=== PATIENT | female | born 1960 | race American Indian/Alaskan Native ===

== ENCOUNTER 2018-08-01 10:30 | Inpatient (IN) | payer MEDICARE ==
[2018-08-01 11:47] LABS: Basophils # (Auto) 0.1 K/mm3 (0.0-0.1); Eosinophils # (Auto) 0.1 K/mm3 (0.0-0.4); Eosinophils % (Auto) 0.5 % (0.0-4.3); Hematocrit 27.4 % (30.3-42.9); Hemoglobin 8.9 gm/dl (10.1-14.3); Lymphocytes # (Auto) 1.4 K/mm3 (1.2-5.4); Lymphocytes % (Auto) 10.1 % (13.4-35.0); Mean Corpuscular HGB Conc 32 % (30-34); Mean Corpuscular Volume 98 fl (79-97); Monocytes # (Auto) 0.6 K/mm3 (0.0-0.8); Monocytes % (Auto) 4.1 % (0.0-7.3); Platelet Count 324 K/mm3 (140-440); Red Blood Count 2.81 M/mm3 (3.65-5.03)
--- NOTE | 2018-08-01 11:49 | Emergency Department Report ---
HPI - General Chief Complaint: Dyspnea/Respdistress Time Seen by Provider: 08/01/18 11:15 - HPI HPI: Room 2 The patient is a 58-year-old female presenting with a chief complaint hypoxia. The patient has a history of previous CVA and trach and does not speak. The patient was sent from the [facility] after she was noted "using accessory muscles to breathe and having labored breathing. Resident is alert and when asked if she is okay, she shook her head and a 'yes.'" The patient was reported to be hypoxic in the 60s and after suctioning her SPO2 increased to the 70s per EMS. The patient was brought to the ED with 100% nonrebreather placed over the trach and is satting 100%. Per EMS the patient is scheduled to have dialysis today but the [facility] physicians the patient to the ED. When asked if anything is bothering her or if she has any pain the patient shakes her head "no." When asked if she is feeling short of breath she again shakes her head "no." Location: Lungs Duration: [See above] Quality: Hypoxia Severity: SPO2 in the 60s Modifying factors: [see above] Context: [see above] Mode of transportation: [not driving] ED Past Medical Hx - Past Medical History Previous Medical History?: Yes Hx Hypertension: Yes Hx CVA: Yes Hx Congestive Heart Failure: Yes (Pacemaker) Hx Diabetes: Yes Hx Deep Vein Thrombosis: Yes Hx GERD: Yes Hx Renal Disease: Yes (MWF) Additional medical history: Atrial fibrillation, osteomyelitis, left eye blurriness, anemia, hyperlipidemia - Surgical History Past Surgical History?: Yes Hx Open Heart Surgery: Yes (scar noted) Additional Surgical History: left great toe amputation, cataract, Tracheostomy - Family History Family history: no significant - Social History Smoking Status: Unknown if ever smoked Substance Use Type: None - Medications Home Medications: Home Medications Medication Instructions Recorded Confirmed Last Taken Type ALBUTEROL NEB's [Proventil 0.083% 3 ml IH Q4HR 07/26/18 07/26/18 Unknown History NEBS] Metoprolol [Lopressor TAB] 25 mg PO BID tablet 07/29/18 Unknown Rx amLODIPine [Norvasc] 5 mg PO QDAY tablet 07/29/18 Unknown Rx Amiodarone HCl [Pacerone] 200 mg PO DAILY 08/01/18 08/01/18 Unknown History Aspirin [Adult Aspirin] 81 mg PO DAILY 08/01/18 08/01/18 Unknown History Carvedilol [Coreg] 12.5 mg PO BID 08/01/18 08/01/18 Unknown History Famotidine 20 mg PO DAILY 08/01/18 08/01/18 Unknown History Gabapentin [Gralise] 30 mg PO QHS 08/01/18 08/01/18 Unknown History Lispro Insulin [Humalog] 0 unit SQ TID 08/01/18 08/01/18 Unknown History Loperamide [Imodium] 2 mg PO Q6H 08/01/18 08/01/18 Unknown History Sevelamer Carbonate [Renvela] 800 mg PO TIDWM 08/01/18 08/01/18 Unknown History Zinc Sulfate 220 mg PO DAILY 08/01/18 08/01/18 Unknown History ED Review of Systems ROS: Stated complaint: IMANI Other details as noted in HPI Constitutional: no symptoms reported Eyes: denies: eye pain ENT: denies: throat pain Respiratory: other (hypoxia) Cardiovascular: denies: chest pain Endocrine: no symptoms reported Gastrointestinal: denies: abdominal pain Musculoskeletal: denies: back pain Neurological: denies: headache Physical Exam - Physical Exam Vital Signs: Vital Signs 08/01/18 10:53 Temperature 98.5 F Pulse Rate 71 Respiratory 24 Rate Blood Pressure 94/47 O2 Sat by Pulse 100 Oximetry Physical Exam: GENERAL: The patient is well-developed well-nourished female lying on stretcher with trach collar in place not appearing to be in acute distress. [] HEENT: Normocephalic. Atraumatic. Extraocular motions are intact. Patient has moist mucous membranes. NECK: Supple. Trachea in place CHEST/LUNGS: Clear to auscultation. There is no respiratory distress noted. HEART/CARDIOVASCULAR: Regular. There is no tachycardia. There is no gallop rub or murmur. ABDOMEN: Abdomen is soft, nontender. Patient has normal bowel sounds. There is no abdominal distention. SKIN: There is no rash. There is no edema. There is no diaphoresis. NEURO: The patient is awake and alert. The patient is cooperative. MUSCULOSKELETAL: There is no evidence of acute injury. ED Course Vital Signs 08/01/18 10:53 Temperature 98.5 F Pulse Rate 71 Respiratory 24 Rate Blood Pressure 94/47 O2 Sat by Pulse 100 Oximetry ED Medical Decision Making - Lab Data Result diagrams: 08/01/18 11:30 08/01/18 11:30 Laboratory Tests 08/01/18 08/01/18 08/01/18 11:30 11:30 11:30 WBC 13.7 H RBC 2.81 L Hgb 8.9 L Hct 27.4 L MCV 98 H MCH 32 MCHC 32 RDW 16.0 H Plt Count 324 Lymph % (Auto) 10.1 L [place] % (Auto) 4.1 Eos % (Auto) 0.5 Baso % (Auto) 1.0 Lymph # 1.4 [place] # 0.6 Eos # 0.1 Baso # 0.1 Seg Neutrophils % 84.3 H Seg Neutrophils # 11.6 H PT 14.4 INR 1.05 APTT 23.5 L Sodium 133 L Potassium 4.8 D Chloride 89.8 L Carbon Dioxide 26 Anion Gap 22 BUN 78 H Creatinine 8.7 H D Estimated GFR 6 BUN/Creatinine Ratio 9 Glucose 177 H Calcium 9.3 - EKG Data -: EKG Interpreted by Me EKG shows normal: sinus rhythm Rate: normal - EKG Data When compared to previous EKG there are: previous EKG unavailable Interpretation: other (no ischemic changes seen) - Radiology Data Radiology results: report reviewed (chest x-ray), image reviewed (chest x-ray) interpreted by me: Chest x-ray-no focal infiltrates, no pneumothorax [address] [address] XRay Report Signed Patient: NAIDA CURRAN MR#: [id number] : 1960 Acct:[id number] Age/Sex: 58 / F ADM Date: 08/01/18 Loc: ED Attending Dr: Ordering Physician: SHIN WESLEY MD Date of Service: 08/01/18 Procedure(s): XR chest 1V ap Accession Number(s): [id number] cc: SHIN WESLEY MD Fluoro Time In Minutes: AP CHEST: HISTORY: Hypoxia Lines and support devices are unchanged since 07/29/18. Heart size and pulmonary vascularity are stable and within normal limits. Elevated right hemidiaphragm with compressive atelectasis at the right lung base are stable. Otherwise the lungs are clear. IMPRESSION: No acute process. No change since 07/29/18. Transcribed By: TTR Dictated By: FRANCISCA MALDONADO JR, MD Electronically Authenticated By: FRANCISCA MALDONADO JR, MD Signed Date/Time: 08/01/18 1156 DD/ 1155 TD/TT: 08/01/18 1156 - Differential Diagnosis pneumonia, pneumothorax Critical care attestation.: If time is entered above; I have spent that time in minutes in the direct care of this critically ill patient, excluding procedure time. ED Disposition Clinical Impression: Hypoxia Disposition: DC-09 OP ADMIT IP TO THIS HOSP Is pt being admited?: Yes Does the pt Need Aspirin: No Condition: Fair Referrals: JERARDO WILD MD [Primary Care Provider] - 3-5 Days Time of Disposition: 15:27 (Hosptialist paged (Dr Reece))
[2018-08-01 11:56] LABS: INR 1.05 (0.87-1.13); Partial Thromboplastin Time 23.5 Sec. (24.2-36.6)
--- NOTE | 2018-08-01 11:59 | XRay Report ---
AP CHEST: HISTORY: Hypoxia Lines and support devices are unchanged since 07/29/18. Heart size and pulmonary vascularity are stable and within normal limits. Elevated right hemidiaphragm with compressive atelectasis at the right lung base are stable. Otherwise the lungs are clear. IMPRESSION: No acute process. No change since 07/29/18.
[2018-08-01 12:02] LABS: Calcium 9.3 mg/dL (8.4-10.2)
--- NOTE | 2018-08-01 15:14 | Nuclear Medicine Report ---
PERFUSION LUNG SCAN: History: Hypoxia. After injection of Technetium 99m macroaggregated albumin gamma camera imaging of the lungs in multiple projections demonstrates normal pulmonary contours with a homogeneous distribution of activity. No focal areas of perfusion deficiency are identified. IMPRESSION: Normal study.
[2018-08-01] MEDS ORDERED: ZOFRAN IV PRN (19:44)
[2018-08-01] MEDS ORDERED: SODIUM CHLORIDE FLUSH SYRINGE 10 ML IV PRN (19:44)
--- NOTE | 2018-08-01 19:44 | History and Physical Report ---
History of Present Illness Date of examination: 08/01/18 Date of admission: 08/01/18 Chief complaint: Increasing SOB and Congestion near Trach site 1 day History of present illness: 58-year-old female presenting with a chief complaint of hypoxia. The patient has history of previous CVA,ESRD Encephalopathy and trach and does not speak. Was recently discharged from this facility on Jul 29 after a stay of 11 days.Had multiple problems including Sepsis Encephalopathy and Resp failure including ESRD. Patient sent from [facility] for Low O2 sats.Improved to 100 percent after proper suctioning.Daughter feels that her mother is not being suctioned properly.No fever or chills. Past Medical History Hypertension: Yes CVA: Yes Congestive Heart Failure: Yes (Pacemaker) Diabetes: Yes Deep Vein Thrombosis: Yes GERD: Yes Renal Disease: Yes (MWF) Additional medical history: Atrial fibrillation, osteomyelitis, left eye blurriness, anemia, hyperlipidemia Surgical History Past Surgical History?: Yes Hx Open Heart Surgery: Yes (scar noted) Additional Surgical History: left great toe amputation, cataract, Tracheostomy Family History Family history: no significant Social History Smoking Status: Unknown if ever smoked Substance Use Type: None Medications Home Medications: Home Medications Medication Instructions Recorded Confirmed Last Taken Type ALBUTEROL NEB's [Proventil 0.083% 3 ml IH Q4HR 07/26/18 07/26/18 Unknown History NEBS] Metoprolol [Lopressor TAB] 25 mg PO BID tablet 07/29/18 Unknown Rx amLODIPine [Norvasc] 5 mg PO QDAY tablet 07/29/18 Unknown Rx Amiodarone HCl [Pacerone] 200 mg PO DAILY 08/01/18 08/01/18 Unknown History Aspirin [Adult Aspirin] 81 mg PO DAILY 08/01/18 08/01/18 Unknown History Carvedilol [Coreg] 12.5 mg PO BID 08/01/18 08/01/18 Unknown History Famotidine 20 mg PO DAILY 08/01/18 08/01/18 Unknown History Gabapentin [Gralise] 30 mg PO QHS 08/01/18 08/01/18 Unknown History Lispro Insulin [Humalog] 0 unit SQ TID 08/01/18 08/01/18 Unknown History Loperamide [Imodium] 2 mg PO Q6H 08/01/18 08/01/18 Unknown History Sevelamer Carbonate [Renvela] 800 mg PO TIDWM 08/01/18 08/01/18 Unknown History Zinc Sulfate 220 mg PO DAILY 08/01/18 08/01/18 Unknown History Review of Systems ROS: Stated complaint: IMANI Other details as noted in HPI Constitutional: no symptoms reported Eyes: denies: eye pain ENT: denies: throat pain Respiratory: other (hypoxia) Cardiovascular: denies: chest pain Endocrine: no symptoms reported Gastrointestinal: denies: abdominal pain Musculoskeletal: denies: back pain Neurological: denies: headache Medications and Allergies Allergies Allergy/AdvReac Type Severity Reaction Status Date / Time ondansetron Allergy Anaphylaxis Verified 08/01/18 11:00 sulfamethoxazole Allergy Anaphylaxis Verified 08/01/18 11:00 [From Bactrim] trimethoprim [From Bactrim] Allergy Anaphylaxis Verified 08/01/18 11:00 vancomycin Allergy Anaphylaxis Verified 08/01/18 11:00 Home Medications Medication Instructions Recorded Confirmed Last Taken Type ALBUTEROL NEB's [Proventil 0.083% 3 ml IH Q4HR 07/26/18 08/01/18 Unknown History NEBS] Metoprolol [Lopressor TAB] 25 mg PO BID tablet 07/29/18 08/01/18 Unknown Rx amLODIPine [Norvasc] 5 mg PO QDAY tablet 07/29/18 08/01/18 Unknown Rx Amiodarone HCl [Pacerone] 200 mg PO DAILY 08/01/18 08/01/18 Unknown History Aspirin [Adult Aspirin] 81 mg PO DAILY 08/01/18 08/01/18 Unknown History Carvedilol [Coreg] 12.5 mg PO BID 08/01/18 08/01/18 Unknown History Famotidine 20 mg PO DAILY 08/01/18 08/01/18 Unknown History Gabapentin [Gralise] 30 mg PO QHS 08/01/18 08/01/18 Unknown History Lispro Insulin [Humalog] 0 unit SQ TID 08/01/18 08/01/18 Unknown History Loperamide [Imodium] 2 mg PO Q6H 08/01/18 08/01/18 Unknown History Sevelamer Carbonate [Renvela] 800 mg PO TIDWM 08/01/18 08/01/18 Unknown History Zinc Sulfate 220 mg PO DAILY 08/01/18 08/01/18 Unknown History Exam - Constitutional Vitals: Temp Pulse Resp BP Pulse Ox 98.5 F 80 17 95/59 100 08/01/18 10:53 08/01/18 19:01 08/01/18 19:01 08/01/18 19:01 08/01/18 19:01 General appearance: Present: mild distress, well-nourished - EENT Eyes: Present: PERRL ENT: hearing intact, clear oral mucosa - Neck Neck: Present: supple, normal ROM - Respiratory Respiratory effort: normal Respiratory: bilateral: diminished, rhonchi, wheezing - Cardiovascular Heart rate: 78 Rhythm: regular Heart Sounds: Present: S1 & S2. Absent: rub, click - Extremities Extremities: no ischemia, pulses symmetrical, No edema Peripheral Pulses: within normal limits - Abdominal General gastrointestinal: Present: soft, non-tender, non-distended, normal bowel sounds Female genitourinary: Present: normal - Rectal Rectal Exam: deferred - Integumentary Integumentary: Present: clear, warm, dry - Musculoskeletal Musculoskeletal: generalized weakness - Psychiatric Psychiatric: depressed, other (Says yes or no) - Neurologic Neurologic: CNII-XII intact, moves all extremities - Allied Health Allied health notes reviewed: nursing, case management Results - Labs CBC & Chem 7: 08/01/18 11:30 08/01/18 11:30 Labs: Laboratory Last Values WBC 13.7 K/mm3 (4.5-11.0) H 08/01/18 11:30 RBC 2.81 M/mm3 (3.65-5.03) L 08/01/18 11:30 Hgb 8.9 gm/dl (10.1-14.3) L 08/01/18 11:30 Hct 27.4 % (30.3-42.9) L 08/01/18 11:30 MCV 98 fl (79-97) H 08/01/18 11:30 MCH 32 pg (28-32) 08/01/18 11:30 MCHC 32 % (30-34) 08/01/18 11:30 RDW 16.0 % (13.2-15.2) H 08/01/18 11:30 Plt Count 324 K/mm3 (140-440) 08/01/18 11:30 Lymph % (Auto) 10.1 % (13.4-35.0) L 08/01/18 11:30 [place] % (Auto) 4.1 % (0.0-7.3) 08/01/18 11:30 Eos % (Auto) 0.5 % (0.0-4.3) 08/01/18 11:30 Baso % (Auto) 1.0 % (0.0-1.8) 08/01/18 11:30 Lymph # 1.4 K/mm3 (1.2-5.4) 08/01/18 11:30 [place] # 0.6 K/mm3 (0.0-0.8) 08/01/18 11:30 Eos # 0.1 K/mm3 (0.0-0.4) 08/01/18 11:30 Baso # 0.1 K/mm3 (0.0-0.1) 08/01/18 11:30 Seg Neutrophils % 84.3 % (40.0-70.0) H 08/01/18 11:30 Seg Neutrophils # 11.6 K/mm3 (1.8-7.7) H 08/01/18 11:30 PT 14.4 Sec. (12.2-14.9) 08/01/18 11:30 INR 1.05 (0.87-1.13) 08/01/18 11:30 APTT 23.5 Sec. (24.2-36.6) L 08/01/18 11:30 POC ABG pH 7.366 (7.35-7.45) 08/01/18 18:38 POC ABG pCO2 48.2 (35-45) H 08/01/18 18:38 POC ABG pO2 146 (80-105) H 08/01/18 18:38 POC ABG HCO3 27.6 08/01/18 18:38 POC ABG Total CO2 29 08/01/18 18:38 POC ABG O2 Sat 99 08/01/18 18:38 POC ABG Base Excess 2 08/01/18 18:38 FiO2 35 % 08/01/18 18:38 Sodium 133 mmol/L (137-145) L 08/01/18 11:30 Potassium 4.8 mmol/L (3.6-5.0) D 08/01/18 11:30 Chloride 89.8 mmol/L (98-107) L 08/01/18 11:30 Carbon Dioxide 26 mmol/L (22-30) 08/01/18 11:30 Anion Gap 22 mmol/L 08/01/18 11:30 BUN 78 mg/dL (7-17) H 08/01/18 11:30 Creatinine 8.7 mg/dL (0.7-1.2) H D 08/01/18 11:30 Estimated GFR 6 ml/min 08/01/18 11:30 BUN/Creatinine Ratio 9 % 08/01/18 11:30 Glucose 177 mg/dL (65-100) H 08/01/18 11:30 Calcium 9.3 mg/dL (8.4-10.2) 08/01/18 11:30 - Imaging and Cardiology EKG: report reviewed (Sinus Tach) Imaging and Cardiology: CXR NAF Perfusion scan IMPRESSION: Normal study. Assessment and Plan Advance Directives: Yes (Full code) VTE prophylaxis?: Chemical Plan of care discussed with patient/family: Yes - Patient Problems (1) Acute respiratory failure with hypoxia Current Visit: Yes Status: Acute Plan to address problem: Sec to improper or delayed suctioning at [facility] Daughter wants a different SNF Patient has been optimized to a large extent and discharged on Jul 29.Has multiple medical problems including ESRD AFIB Trach and Peg (2) ESRD needing dialysis Current Visit: Yes Status: Chronic Plan to address problem: COnt HD Nephrology consulted (3) IDDM (insulin dependent diabetes mellitus) Current Visit: Yes Status: Chronic Plan to address problem: Cont Coverage (4) HTN (hypertension) Current Visit: Yes Status: Chronic Qualifiers: Hypertension type: essential hypertension Qualified Code(s): I10 - Essential (primary) hypertension Plan to address problem: Cont antihypertensives (5) GERD (gastroesophageal reflux disease) Current Visit: Yes Status: Chronic Qualifiers: Esophagitis presence: with esophagitis Qualified Code(s): K21.0 - Gastro- esophageal reflux disease with esophagitis Plan to address problem: Cont PPI's (6) Peripheral neuropathy Current Visit: Yes Status: Chronic Qualifiers: Peripheral neuropathy type: polyneuropathy, unspecified Qualified Code(s): G62.9 - Polyneuropathy, unspecified Plan to address problem: Cont Gabapentin (7) DVT prophylaxis Current Visit: Yes Status: Acute Plan to address problem: On Lovenox and GI prophylaxis
[2018-08-01] MEDS ORDERED: SIMPLE SYRUP FEEDTUBE PRN ×2 (19:47)
[2018-08-01] MEDS ORDERED: LEVAQUIN 750MG/150ML 750 MG/150 ML BAG IV SCH (20:00)
[2018-08-01] MEDS ORDERED: NACL 0.9% 1000 ML 1,000 ML IV SCH (20:00)
[2018-08-01 21:20] LABS: Prealbumin 0.277 g/L (0.200-0.400)
[2018-08-01] MEDS ORDERED: LEVAQUIN 750MG/150ML 750 MG/150 ML BAG IV ONE ×2 (22:00→22:59)
[2018-08-01] MEDS ORDERED: GABAPENTIN PO SCH (22:00)
[2018-08-01] MEDS ORDERED: BABY ASPIRIN ONE (22:59)
[2018-08-01] MEDS ORDERED: LOPRESSOR ONE (22:59)
[2018-08-01] MEDS ORDERED: NORVASC ONE (22:59)
[2018-08-01] MEDS ORDERED: PEPCID ONE (22:59)
[2018-08-01] MEDS ORDERED: IMODIUM ONE (23:00)
[2018-08-01] MEDS ORDERED: COREG ONE (23:00)
[2018-08-01] MEDS ORDERED: SOLU-Medrol ONE (23:00)
[2018-08-01] MEDS: SOLU-Medrol IV SCH (23:20)
[2018-08-01] MEDS: HALFPRIN EC PO SCH (23:30)
[2018-08-01] MEDS: COREG PO SCH (23:30)
[2018-08-01] MEDS: IMODIUM PO SCH (23:30)
[2018-08-01] MEDS: PEPCID PO SCH (23:30)
[2018-08-01] MEDS: LOPRESSOR PO SCH (23:30)
[2018-08-02] MEDS: NORVASC PO SCH ×2 (00:15→10:00)
[2018-08-02] MEDS: CORDARONE PO SCH ×2 (01:16→10:00)
[2018-08-02] MEDS ORDERED: SOLU-Medrol ONE (06:08)
[2018-08-02] MEDS ORDERED: IMODIUM ONE (06:08)
[2018-08-02] MEDS: SOLU-Medrol IV SCH ×3 (06:23→21:55)
[2018-08-02] MEDS: IMODIUM PO SCH ×3 (06:23→18:54)
[2018-08-02] MEDS ORDERED: DILAUDID ONE (07:19)
[2018-08-02] MEDS: DILAUDID IV PRN (07:26)
[2018-08-02] MEDS: RENVELA PO SCH ×3 (08:00→18:54)
--- NOTE | 2018-08-02 08:28 | Consultation ---
History of Present Illness Consult date: 08/02/18 Requesting physician: TULIO ANDREW Reason for consult: other (Acute on chronic respiratory failure, trachesotomy) History of present illness: The patient is a 58-year-old female , known to me from previous admission. Has a background history of chronic tracheosomy, mitral valve endocarditis s/p repair, sick sinus syndrome s/p PPM, s/p CVA presenting with a chief complaint hypoxia. . [facility] after she was noted "using accessory muscles to breathe and having labored breathing". The patient was reported to be hypoxic in the 60s and after suctioning her SPO2 increased to the 70s per EMS. The patient was brought to the ED with 100% non-rebreather mask placed over the tracheostomy Per EMS the patient is scheduled to have dialysis today but the [facility] physicians the patient to the ED. When asked if anything is bothering her or if she has any pain the patient shakes her head "no." When asked if she is feeling short of breath she again shakes her head "no.". Her daughter is at the bedside at the time of my evaluation in the ED. She expresses concerns at the paucity of airway clearance at the [facility]. I have been consulted for acute on chronic respiratory failure. The patient is currently on MVS via the trachesotomy. She was seen and examined. Vitals, labs, medications and chart reviewed. CXR personally reviewed images. - Past Medical History Previous Medical History?: Yes Hx Hypertension: Yes Hx CVA: Yes Hx Congestive Heart Failure: Yes (Pacemaker) Hx Diabetes: Yes Hx Deep Vein Thrombosis: Yes Hx GERD: Yes Hx Renal Disease: Yes (MWF) Additional medical history: Atrial fibrillation, osteomyelitis, left eye b lurriness, anemia, hyperlipidemia - Surgical History Past Surgical History?: Yes Hx Open Heart Surgery: Yes (scar noted), s/p MVR fro mitral valve endocarditis Additional Surgical History: left great toe amputation, cataract, Tracheostomy - Family History Family history: no significant - Social History Smoking Status: Unknown if ever smoked Substance Use Type: None Medications and Allergies Allergies Allergy/AdvReac Type Severity Reaction Status Date / Time ondansetron Allergy Anaphylaxis Verified 08/01/18 11:00 sulfamethoxazole Allergy Anaphylaxis Verified 08/01/18 11:00 [From Bactrim] trimethoprim [From Bactrim] Allergy Anaphylaxis Verified 08/01/18 11:00 vancomycin Allergy Anaphylaxis Verified 08/01/18 11:00 Home Medications Medication Instructions Recorded Confirmed Last Taken Type ALBUTEROL NEB's [Proventil 0.083% 3 ml IH Q4HR 07/26/18 08/01/18 Unknown History NEBS] Metoprolol [Lopressor TAB] 25 mg PO BID tablet 07/29/18 08/01/18 Unknown Rx amLODIPine [Norvasc] 5 mg PO QDAY tablet 07/29/18 08/01/18 Unknown Rx Amiodarone HCl [Pacerone] 200 mg PO DAILY 08/01/18 08/01/18 Unknown History Aspirin [Adult Aspirin] 81 mg PO DAILY 08/01/18 08/01/18 Unknown History Carvedilol [Coreg] 12.5 mg PO BID 08/01/18 08/01/18 Unknown History Famotidine 20 mg PO DAILY 08/01/18 08/01/18 Unknown History Gabapentin [Gralise] 30 mg PO QHS 08/01/18 08/01/18 Unknown History Lispro Insulin [Humalog] 0 unit SQ TID 08/01/18 08/01/18 Unknown History Loperamide [Imodium] 2 mg PO Q6H 08/01/18 08/01/18 Unknown History Sevelamer Carbonate [Renvela] 800 mg PO TIDWM 08/01/18 08/01/18 Unknown History Zinc Sulfate 220 mg PO DAILY 08/01/18 08/01/18 Unknown History Active Meds: Active Medications Acetaminophen (Tylenol) 650 mg PO Q4H PRN PRN Reason: Pain MILD(1-3)/Fever >100.5/CASAREZ Albuterol/Ipratropium (Duoneb *Not For Prn Use*) 1 ampul IH QIDRT [facility] Amiodarone HCl (Cordarone) 200 mg PO DAILY [facility] Last Admin: 08/02/18 01:16 Dose: Not Given Documented by: Amlodipine Besylate (Norvasc) 5 mg PO QDAY [facility] Last Admin: 08/02/18 00:15 Dose: 5 mg Documented by: Lipase/Protease/Amylase (Dominique Jerome 10,500 Unit) 1 each FEEDTUBE PRN PRN PRN Reason: For Clogged Feeding Tube Aspirin (Halfprin Ec) 81 mg PO DAILY [facility] Last Admin: 08/01/18 23:30 Dose: 81 mg Documented by: Carvedilol (Coreg) 12.5 mg PO BID [facility] Last Admin: 08/01/18 23:30 Dose: Not Given Documented by: Famotidine (Pepcid) 20 mg PO DAILY [facility] Last Admin: 08/01/18 23:30 Dose: 20 mg Documented by: Hydromorphone HCl (Dilaudid) 0.5 mg IV Q3H PRN PRN Reason: Pain , Severe (7-10) Last Admin: 08/02/18 07:26 Dose: 0.5 mg Documented by: Sodium Chloride (Nacl 0.9% 1000 Ml) 1,000 mls @ 75 mls/hr IV DIRECT [facility] Stop: 08/02/18 11:00 Levofloxacin/Dextrose (Levaquin 500mg/100ml) 500 mg in 100 mls @ 66.667 mls/hr IV Q48H [facility]; Protocol Insulin Human Lispro (Humalog) 0 unit SUB-Q Q6HR [facility]; Protocol Loperamide HCl (Imodium) 2 mg PO Q6HR [facility] Last Admin: 08/02/18 06:23 Dose: 2 mg Documented by: Methylprednisolone Sodium Succinate (Solu-Medrol) 40 mg IV Q8HR [facility] Last Admin: 08/02/18 06:23 Dose: 40 mg Documented by: Metoprolol Tartrate (Lopressor) 25 mg PO BID [facility] Last Admin: 08/01/18 23:30 Dose: Not Given Documented by: Miscellaneous Medication (Gabapentin [Gralise]) 30 mg PO QHS [facility] Last Admin: 08/02/18 01:16 Dose: Not Given Documented by: Sevelamer Carbonate (Renvela) 800 mg PO TIDWM [facility] Simple Syrup (Simple Syrup) 15 ml FEEDTUBE PRN PRN PRN Reason: Hypoglycemia Simple Syrup (Simple Syrup) 30 ml FEEDTUBE PRN PRN PRN Reason: Hypoglycemia Sodium Bicarbonate (Sodium Bicarbonate) 325 mg FEEDTUBE PRN PRN PRN Reason: For Clogged Feeding Tube Sodium Chloride (Sodium Chloride Flush Syringe 10 Ml) 10 ml IV BID [facility] Last Admin: 08/02/18 00:00 Dose: 10 ml Documented by: Sodium Chloride (Sodium Chloride Flush Syringe 10 Ml) 10 ml IV PRN PRN PRN Reason: LINE FLUSH Zinc Sulfate (Zinc Sulfate) 220 mg PO DAILY [facility] Physical Examination Vital signs: Vital Signs Pulse Resp BP Pulse Ox 71 25 H 94/47 100 08/01/18 10:45 08/01/18 10:45 08/01/18 10:45 08/01/18 10:45 GENERAL: A phasic -[place] female lying on bed appeared to be in no discomfort. HEENT: Normocephalic. Atraumatic. No conjunctival congestion or icterus. Patient has moist mucous membranes. NECK: Supple. Trachea midline with trach in place to MVS, on minimal support, in no distress CHEST/LUNGS: Coarse breath sounds auscultated bilaterally, breathing with T piece. No wheezes crackles or rhonchi. HEART/CARDIOVASCULAR: Regular in rate and rhythm. S1 and S2 positive. ABDOMEN: Abdomen is soft, nontender. Patient has normal bowel sounds. PEG tube in place SKIN: There is no rash. Warm and dry. NEURO: Does not Follow command. Aphasic with a blank stare MUSCULOSKELETAL: No joint effusion or tenderness. EXTRIMITY: No edema, no cyanosis or clubbing. PSYCH: Unable to assess Results - Laboratory Findings CBC and BMP: 08/06/18 10:25 08/06/18 10:25 ABG POC ABG pH 7.366 (7.35-7.45) 08/01/18 18:38 POC ABG pCO2 48.2 (35-45) H 08/01/18 18:38 POC ABG pO2 146 (80-105) H 08/01/18 18:38 POC ABG HCO3 27.6 08/01/18 18:38 POC ABG Total CO2 29 08/01/18 18:38 POC ABG O2 Sat 99 08/01/18 18:38 PT/INR, D-dimer PT 14.4 Sec. (12.2-14.9) 08/01/18 11:30 INR 1.05 (0.87-1.13) 08/01/18 11:30 Abnormal lab findings: Abnormal Labs 08/01/18 08/01/18 08/01/18 11:30 11:30 11:30 WBC 13.7 H RBC 2.81 L Hgb 8.9 L Hct 27.4 L MCV 98 H RDW 16.0 H Lymph % (Auto) 10.1 L Seg Neutrophils % 84.3 H Seg Neutrophils # 11.6 H APTT 23.5 L POC ABG pCO2 POC ABG pO2 Sodium 133 L Chloride 89.8 L BUN 78 H Creatinine 8.7 H D Glucose 177 H Magnesium 08/01/18 08/01/18 18:38 19:56 WBC RBC Hgb Hct MCV RDW Lymph % (Auto) Seg Neutrophils % Seg Neutrophils # APTT POC ABG pCO2 48.2 H POC ABG pO2 146 H Sodium Chloride BUN Creatinine Glucose Magnesium 2.80 H Assessment and Plan Acute on Chronic hypoxemic respiratory failure Acute on Chronic Encephalopathy (Toxic / Metabolic / Anoxic) Diabetes type II End-stage renal disease, on dialysis Wednesday, Wednesday and Wednesday Cardiomyopathy (S/P AICD implantation) Anemia of chronic disease Leukocytosis Adult failure to thrive s/p trachesotomy Oropharyngeal dysphagia (s/p PEG) S/p PPM for sinus arrest s/p Mitral valve repair h/o Mitral Valve SBE Atrial Fibrillation (Paroxysmal) Sacral decubitus ulcer, present on admission -Weaning trials initiated in the ED on discussions with RT. Start ATP trials, -VAP bundle addressed - PT/OT /Mobility as tolerated -VTE and Stress ulcer prophylaxis - Enteric feedings as tolerated -Aspiration precautions -Trachesotomy care, airway clearance, secretion management -Wound care consult - Accucheck with glycemic control. Target blood glucose of 140-180mg/dL - Monitor closely for hypoglycemia - Bronchodilators with pulmonary hygiene per RT - Wean supplemental oxygen for O2 sats > 90% - supportive HD/UF for toxin and volume clearance - CXR and ABG as indicated Discussed extensively with the daughter at the bedside. All her questions were answered. CONDITION: CRITICAL PROGNOSIS: GUARDED CODE STATUS: FULL The high probability of a clinically significant, sudden or life threatening deterioration of the [ respiratory] system(s) required my full and direct attention, intervention and personal management. The aggregate critical care time was [30] minutes. This time is in addition to time spent performing reported procedures but includes the following: [x] Data Review and interpretation [x] Patient assessment and monitoring of vital signs [x] Documentation
--- NOTE | 2018-08-02 09:24 | Consultation ---
History of Present Illness - Reason for Consult Consult date: 08/02/18 end stage renal disease - History of Present Illness The patient is a 58 YO female with history significant for DM-2, Hypertension, MV Endocarditis, s/p MV repair with debridement of MV lesion, CVA 2/2 septic emboli, A.fib, ESRD on hemodialysis (MWF), CVA, Respiratory failure s/p Trach & PEG and Anemia who was sent to the emergency room from the alf for worsening SOB and congestion near Trach site. Unable to obtain history from patient and her daughter at the bedside was not able to provide any history either. Information was mostly obtained from previous documentation. Patient was discharged from this facility on Jul 29 after 11 days of stay. The patient was reported to be hypoxic in the 60s and after suctioning her SPO2 increased to the 70s per EMS. The patient was brought to the ED with 100% no nrebreather placed over the trach and was satting 100%. CXR was unremarkable. Per daughter patient was last dialyzed on 07/29/18 and missed HD yesterday. Nephrology was consulted for further evaluation and treatment. Past History Past Medical History: anemia, diabetes, dialysis, ESRD, hypertension, stroke Medications and Allergies Allergies Allergy/AdvReac Type Severity Reaction Status Date / Time ondansetron Allergy Anaphylaxis Verified 08/01/18 11:00 sulfamethoxazole Allergy Anaphylaxis Verified 08/01/18 11:00 [From Bactrim] trimethoprim [From Bactrim] Allergy Anaphylaxis Verified 08/01/18 11:00 vancomycin Allergy Anaphylaxis Verified 08/01/18 11:00 Home Medications Medication Instructions Recorded Confirmed Last Taken Type ALBUTEROL NEB's [Proventil 0.083% 3 ml IH Q4HR 07/26/18 08/01/18 Unknown History NEBS] Metoprolol [Lopressor TAB] 25 mg PO BID tablet 07/29/18 08/01/18 Unknown Rx amLODIPine [Norvasc] 5 mg PO QDAY tablet 07/29/18 08/01/18 Unknown Rx Amiodarone HCl [Pacerone] 200 mg PO DAILY 08/01/18 08/01/18 Unknown History Aspirin [Adult Aspirin] 81 mg PO DAILY 08/01/18 08/01/18 Unknown History Carvedilol [Coreg] 12.5 mg PO BID 08/01/18 08/01/18 Unknown History Famotidine 20 mg PO DAILY 08/01/18 08/01/18 Unknown History Gabapentin [Gralise] 30 mg PO QHS 08/01/18 08/01/18 Unknown History Lispro Insulin [Humalog] 0 unit SQ TID 08/01/18 08/01/18 Unknown History Loperamide [Imodium] 2 mg PO Q6H 08/01/18 08/01/18 Unknown History Sevelamer Carbonate [Renvela] 800 mg PO TIDWM 08/01/18 08/01/18 Unknown History Zinc Sulfate 220 mg PO DAILY 08/01/18 08/01/18 Unknown History Active Meds: Active Medications Acetaminophen (Tylenol) 650 mg PO Q4H PRN PRN Reason: Pain MILD(1-3)/Fever >100.5/CASAREZ Albuterol/Ipratropium (Duoneb *Not For Prn Use*) 1 ampul IH QIDRT [facility] Amiodarone HCl (Cordarone) 200 mg PO DAILY [facility] Last Admin: 08/02/18 01:16 Dose: Not Given Documented by: Amlodipine Besylate (Norvasc) 5 mg PO QDAY [facility] Last Admin: 08/02/18 00:15 Dose: 5 mg Documented by: Lipase/Protease/Amylase (Pancretevin Dr 10,500 Unit) 1 each FEEDTUBE PRN PRN PRN Reason: For Clogged Feeding Tube Aspirin (Halfprin Ec) 81 mg PO DAILY [facility] Last Admin: 08/01/18 23:30 Dose: 81 mg Documented by: Carvedilol (Coreg) 12.5 mg PO BID [facility] Last Admin: 08/01/18 23:30 Dose: Not Given Documented by: Famotidine (Pepcid) 20 mg PO DAILY [facility] Last Admin: 08/01/18 23:30 Dose: 20 mg Documented by: Hydromorphone HCl (Dilaudid) 0.5 mg IV Q3H PRN PRN Reason: Pain , Severe (7-10) Last Admin: 08/02/18 07:26 Dose: 0.5 mg Documented by: Sodium Chloride (Nacl 0.9% 1000 Ml) 1,000 mls @ 75 mls/hr IV DIRECT [facility] Stop: 08/02/18 11:00 Levofloxacin/Dextrose (Levaquin 500mg/100ml) 500 mg in 100 mls @ 66.667 mls/hr IV Q48H [facility]; Protocol Insulin Human Lispro (Humalog) 0 unit SUB-Q Q6HR [facility]; Protocol Loperamide HCl (Imodium) 2 mg PO Q6HR [facility] Last Admin: 08/02/18 06:23 Dose: 2 mg Documented by: Methylprednisolone Sodium Succinate (Solu-Medrol) 40 mg IV Q8HR [facility] Last Admin: 08/02/18 06:23 Dose: 40 mg Documented by: Metoprolol Tartrate (Lopressor) 25 mg PO BID [facility] Last Admin: 08/01/18 23:30 Dose: Not Given Documented by: Miscellaneous Medication (Gabapentin [Gralise]) 30 mg PO QHS [facility] Last Admin: 08/02/18 01:16 Dose: Not Given Documented by: Sevelamer Carbonate (Renvela) 800 mg PO TIDWM [facility] Simple Syrup (Simple Syrup) 15 ml FEEDTUBE PRN PRN PRN Reason: Hypoglycemia Simple Syrup (Simple Syrup) 30 ml FEEDTUBE PRN PRN PRN Reason: Hypoglycemia Sodium Bicarbonate (Sodium Bicarbonate) 325 mg FEEDTUBE PRN PRN PRN Reason: For Clogged Feeding Tube Sodium Chloride (Sodium Chloride Flush Syringe 10 Ml) 10 ml IV BID [facility] Last Admin: 08/02/18 00:00 Dose: 10 ml Documented by: Sodium Chloride (Sodium Chloride Flush Syringe 10 Ml) 10 ml IV PRN PRN PRN Reason: LINE FLUSH Zinc Sulfate (Zinc Sulfate) 220 mg PO DAILY [facility] Review of Systems ROS unobtainable: due to mental status Exam - Vital Signs Vital signs: Vital Signs Pulse Resp BP Pulse Ox 71 25 H 94/47 100 08/01/18 10:45 08/01/18 10:45 08/01/18 10:45 08/01/18 10:45 - General Appearance General appearance: well-developed, appears stated age, other (not in distress, ) EENT: ATNC Neck: Present: Other (Trached on T-piece) Respiratory: Clear to Ascultation Heart: S1S2, no murmurs Gastrointestinal: Present: normoactive bowel sounds, other (PEG tube noted). Absent: tenderness, distended Neurologic: other (opens eyes) Musculoskeletal: Present: other (no edema) Results - Lab Results 08/03/18 07:43 08/03/18 07:43 Most recent lab results Calcium 9.3 mg/dL (8.4-10.2) 08/01/18 11:30 Magnesium 2.80 mg/dL (1.7-2.3) H 08/01/18 19:56 Assessment and Plan 1. ESRD: Continue hemodialysis three times a week. Her usual schedule is MWF. Missed HD yesterday. HD today. 2. Respiratory failure: Trached, on T-piece. 3. Anemia: Epogen with HD. 4. H/o Cardiac arrest. 5. H/o CVA. 6. Anoxic encephalopathy.
[2018-08-02] MEDS ORDERED: NACL 0.9% 100 ML IV PRN (09:40)
[2018-08-02] MEDS: HumaLOG SUB-Q SCH ×3 (09:50→18:54)
[2018-08-02] MEDS: HALFPRIN EC PO SCH (10:00)
[2018-08-02] MEDS: COREG PO SCH (10:00)
[2018-08-02] MEDS: PEPCID PO SCH (10:00)
[2018-08-02] MEDS: LOPRESSOR PO SCH ×2 (10:00→21:54)
[2018-08-02] MEDS ORDERED: NON-FORMULARY (Zinc Sulfate [Zinc Sulfate] 220 MG) PO SCH (10:00)
[2018-08-02] MEDS: SODIUM CHLORIDE FLUSH SYRINGE 10 ML IV SCH ×3 (10:00→21:56)
[2018-08-02] MEDS: ZINC SULFATE PO SCH (10:00)
[2018-08-02] MEDS: DUONEB *Not for PRN Use IH SCH ×3 (10:57→21:37)
[2018-08-02] MEDS: PROCRIT SUB-Q PRN (12:20)
--- NOTE | 2018-08-02 12:27 | Progress Note ---
Assessment and Plan / Acute on chronic respiratory failure with hypoxia Sec to improper or delayed suctioning at [facility] Daughter wants a different SNF Patient has been optimized to a large extent and discharged on Jul 29. Continue scheduled breathing treatments, critical care consult Antibiotics for possible aspiration pneumonitis / ESRD needing dialysis COnt HD Nephrology consulted / IDDM (insulin dependent diabetes mellitus) Cont Coverage with T feeding diet / HTN (hypertension) Cont antihypertensives / GERD (gastroesophageal reflux disease) Cont PPI's /DVT prophylaxis, placed on heparin - Other chronic medical problems History of cardiac arrest Anoxic encephalopathy with chronic vegetative state History of Bradycardia arrhythmia, status post pacemaker hx of multiple cva hx of endocarditis Anemia of chronic disease History of mitral valves disease Brief History: 58-year-old female with a history of CVA status post trach and pain, end-stage renal disease on dialysis, chronic vegetative state presented from sleep with a chief complaint of hypoxia. Patient was Was recently discharged from this facility on Jul 29 after a stay of 11 days after being treated for multiple problems including Sepsis, aspiration pneumonia, Encephalopathy, and Resp failure, ESRD. Patient was sent from [place] again on 08/01/18 for Low O2 sats which Improved to 100 percent after proper suctioning. Daughter feels that her mother is not being suctioned properly. Hospitalist Physical exam: GENERAL: A phasic -Italian female lying on bed appeared to be in no discomfort. HEENT: Normocephalic. Atraumatic. No conjunctival congestion or icterus. Patient has moist mucous membranes. NECK: Supple. Trachea midline with trach in place CHEST/LUNGS: Coarse breath sounds auscultated bilaterally, breathing with T piece. No wheezes crackles or rhonchi. HEART/CARDIOVASCULAR: Regular in rate and rhythm. S1 and S2 positive. ABDOMEN: Abdomen is soft, nontender. Patient has normal bowel sounds. PEG tube in place SKIN: There is no rash. Warm and dry. NEURO: Does not Follow command. Aphasic with a blank stare MUSCULOSKELETAL: No joint effusion or tenderness. EXTRIMITY: No edema, no cyanosis or clubbing. PSYCH: Unable to assess Subjective Date of service: 08/02/18 Interval history: Patient seen and examined. Medical records and medication list reviewed. No acute event overnight noted by the RN. Patient getting dialysis at the bedside Patient is aphasic Objective - Constitutional Vitals: Vital Signs - 12hr 08/02/18 08/02/1819 00:30 01:00 01:30 Temperature Pulse Rate 74 72 68 Respiratory 16 16 16 Rate Blood Pressure 114/65 115/62 Blood Pressure [Right] O2 Sat by Pulse 100 100 100 Oximetry O2 Sat by Pulse Oximetry [ Anterior Throughout] O2 Sat by Pulse Oximetry [ Assessment] 08/02/18 08/02/18 08/02/18 02:00 02:30 03:00 Temperature Pulse Rate 68 72 71 Respiratory 16 16 16 Rate Blood Pressure Blood Pressure [Right] O2 Sat by Pulse 100 100 100 Oximetry O2 Sat by Pulse Oximetry [ Anterior Throughout] O2 Sat by Pulse Oximetry [ Assessment] 08/02/18 08/02/18 08/02/18 03:30 04:00 04:30 Temperature Pulse Rate 74 68 69 Respiratory 16 16 16 Rate Blood Pressure 112/66 104/61 Blood Pressure [Right] O2 Sat by Pulse 100 100 100 Oximetry O2 Sat by Pulse Oximetry [ Anterior Throughout] O2 Sat by Pulse Oximetry [ Assessment] 08/02/18 08/02/18 08/02/18 05:00 08:00 08:33 Temperature Pulse Rate 69 72 69 Respiratory 16 17 16 Rate Blood Pressure 104/61 104/61 Blood Pressure 106/60 [Right] O2 Sat by Pulse 100 100 100 Oximetry O2 Sat by Pulse Oximetry [ Anterior Throughout] O2 Sat by Pulse Oximetry [ Assessment] 08/02/18 08/02/18 08/02/18 09:35 09:36 10:46 Temperature Pulse Rate Respiratory Rate Blood Pressure Blood Pressure [Right] O2 Sat by Pulse 100 98 Oximetry O2 Sat by Pulse Oximetry [ Anterior Throughout] O2 Sat by Pulse 100 Oximetry [ Assessment] 08/02/18 08/02/18 08/02/18 10:53 11:25 11:30 Temperature 97.8 F Pulse Rate 71 69 Respiratory 16 Rate Blood Pressure 118/62 112/59 Blood Pressure [Right] O2 Sat by Pulse 98 Oximetry O2 Sat by Pulse 100 Oximetry [ Anterior Throughout] O2 Sat by Pulse Oximetry [ Assessment] 08/02/18 08/02/18 08/02/18 11:45 12:00 12:15 Temperature Pulse Rate 69 69 69 Respiratory Rate Blood Pressure 98/58 103/58 104/58 Blood Pressure [Right] O2 Sat by Pulse Oximetry O2 Sat by Pulse Oximetry [ Anterior Throughout] O2 Sat by Pulse Oximetry [ Assessment] - Labs CBC & Chem 7: 08/03/18 07:43 08/03/18 07:43 Labs: Abnormal lab results 08/01/18 08/01/18 08/02/18 Range/Units 18:38 19:56 09:07 POC ABG pCO2 48.2 H (35-45) POC ABG pO2 146 H 125 H (80-105) Magnesium 2.80 H (1.7-2.3) mg/dL
[2018-08-02] MEDS ORDERED: SODIUM BICARBONATE FEEDTUBE PRN (16:39)
[2018-08-02] MEDS ORDERED: PANCREAZE DR 10,500 UNIT FEEDTUBE PRN (16:39)
[2018-08-02] MEDS ORDERED: SIMPLE SYRUP FEEDTUBE PRN ×2 (16:39)
[2018-08-02 16:53] LABS: Hematocrit 22.8 % (30.3-42.9); Hemoglobin 8.1 gm/dl (10.1-14.3); Mean Corpuscular HGB Conc 36 % (30-34); Mean Corpuscular Volume 94 fl (79-97); Platelet Count 310 K/mm3 (140-440); Red Blood Count 2.42 M/mm3 (3.65-5.03); Red Cell Distribution Width 15.7 % (13.2-15.2)
[2018-08-02 17:11] LABS: Albumin 2.9 g/dL (3.9-5); BUN/Creatinine Ratio 8; Blood Urea Nitrogen 38 mg/dL (7-17); Calcium 8.5 mg/dL (8.4-10.2); Hemolysis Index 46
[2018-08-02 17:12] LABS: Alanine Aminotransferase < 5 units/L (7-56)
[2018-08-02 18:05] LABS: Basophils % (Manual) 0 % (0.0-1.8); Eosinophils % (Manual) 0 % (0.0-4.3); Monocytes % (Manual) 0 % (0.0-7.3); Total Cells Counted 100
[2018-08-02 18:06] LABS: Anisocytosis 1+; Hypochromasia 1+; Large Platelets 1+; Platelet Estimate Consistent w Auto
[2018-08-03] MEDS: COREG PO SCH ×3 (00:03→22:55)
[2018-08-03] MEDS: HumaLOG SUB-Q SCH ×4 (00:03→18:06)
[2018-08-03] MEDS: IMODIUM PO SCH ×4 (00:06→18:06)
[2018-08-03] MEDS: SOLU-Medrol IV SCH (05:35)
[2018-08-03] MEDS: PANCREAZE DR 10,500 UNIT FEEDTUBE PRN ×2 (05:51→23:35)
[2018-08-03] MEDS: SODIUM BICARBONATE FEEDTUBE PRN ×2 (05:51→23:35)
[2018-08-03] MEDS: DUONEB *Not for PRN Use IH SCH ×3 (07:53→22:44)
[2018-08-03 08:16] LABS: Hematocrit 24.9 % (30.3-42.9); Hemoglobin 8.3 gm/dl (10.1-14.3); Mean Corpuscular HGB Conc 33 % (30-34); Mean Corpuscular Volume 93 fl (79-97); Red Blood Count 2.67 M/mm3 (3.65-5.03); Red Cell Distribution Width 15.6 % (13.2-15.2)
[2018-08-03 08:29] LABS: Calcium 8.6 mg/dL (8.4-10.2)
[2018-08-03] MEDS: RENVELA PO SCH ×3 (09:26→18:06)
[2018-08-03] MEDS: PEPCID PO SCH (09:26)
[2018-08-03] MEDS: ZINC SULFATE PO SCH (09:27)
[2018-08-03] MEDS: CORDARONE PO SCH (09:27)
[2018-08-03] MEDS: HALFPRIN EC PO SCH (09:27)
[2018-08-03] MEDS: NORVASC PO SCH (09:28)
[2018-08-03] MEDS: SODIUM CHLORIDE FLUSH SYRINGE 10 ML IV SCH ×2 (09:29→22:56)
[2018-08-03 09:32] LABS: Platelet Count 292 K/mm3 (140-440)
[2018-08-03] MEDS: LOPRESSOR PO SCH ×2 (09:39→22:54)
[2018-08-03] MEDS ORDERED: LEVAQUIN 500MG/100ML 500 MG/100 ML BAG IV SCH (10:00)
--- NOTE | 2018-08-03 11:14 | Progress Note ---
Assessment and Plan / Acute on chronic respiratory failure with hypoxia Sec to improper or delayed suctioning at [facility] Daughter wants a different SNF Patient has been optimized to a large extent and discharged on Jul 29. Continue scheduled breathing treatments, t-tube suction cont Antibiotics for possible aspiration pneumonitis / ESRD needing dialysis COnt HD per renal Nephrology consulted / IDDM (insulin dependent diabetes mellitus) Cont SS Coverage with T feeding diet / HTN (hypertension) Cont antihypertensives / GERD (gastroesophageal reflux disease) Cont PPI's /DVT prophylaxis, placed on heparin - Other chronic medical problems History of cardiac arrest Anoxic encephalopathy with chronic vegetative state History of Bradycardia arrhythmia, status post pacemaker hx of multiple cva hx of endocarditis Anemia of chronic disease History of mitral valves disease Disposition: pending placement. daughter doesnot want the same facility for discharge Brief History: 58-year-old female with a history of CVA status post trach and pain, end-stage renal disease on dialysis, chronic vegetative state [place] [facility] [place] chief complaint of hypoxia. Patient was Was recently discharged from this facility on Jul 29 after a stay of 11 days after being treated for multiple problems including Sepsis, aspiration pneumonia, Encephalopathy, and Resp failure, ESRD. Patient was sent from [facility] on 08/01/18 for Low O2 sats which Improved to 100 percent after proper suctioning. Daughter feels that her mother is not being suctioned properly. Hospitalist Physical exam: GENERAL: A phasic -Hungarian female lying on bed appeared to be in no discomfort. HEENT: Normocephalic. Atraumatic. No conjunctival congestion or icterus. Patient has moist mucous membranes. NECK: Supple. Trachea midline with trach in place CHEST/LUNGS: Coarse breath sounds auscultated bilaterally, breathing with T piece. No wheezes crackles or rhonchi. HEART/CARDIOVASCULAR: Regular in rate and rhythm. S1 and S2 positive. ABDOMEN: Abdomen is soft, nontender. Patient has normal bowel sounds. PEG tube in place SKIN: There is no rash. Warm and dry. NEURO: Follow command. Aphasic with a blank stare, moves extremities MUSCULOSKELETAL: No joint effusion or tenderness. EXTRIMITY: No edema, no cyanosis or clubbing. PSYCH: Unable to assess Subjective Date of service: 08/03/18 Interval history: Patient seen and examined. Medical records and medication list reviewed. No acute event overnight noted by the RN. Patient off the unit Patient is aphasic but today following commend Objective - Constitutional Vitals: Vital Signs - 12hr 08/02/18 08/02/18 08/02/18 23:21 23:30 23:41 Temperature Pulse Rate 80 80 79 Pulse Rate [ Anterior Throughout] Pulse Rate [ From Monitor] Respiratory 18 17 16 Rate Respiratory Rate [Anterior Throughout] Blood Pressure 161/72 157/71 157/71 O2 Sat by Pulse 97 100 100 Oximetry O2 Sat by Pulse Oximetry [ Assessment] 08/02/18 08/03/18 08/03/18 23:51 00:00 00:03 Temperature 97.3 F L Pulse Rate 75 74 74 Pulse Rate [ Anterior Throughout] Pulse Rate [ From Monitor] Respiratory 16 15 Rate Respiratory Rate [Anterior Throughout] Blood Pressure 157/71 148/70 148/70 O2 Sat by Pulse 100 100 Oximetry O2 Sat by Pulse Oximetry [ Assessment] 08/03/18 08/03/18 08/03/18 00:11 00:21 00:30 Temperature Pulse Rate 75 76 71 Pulse Rate [ Anterior Throughout] Pulse Rate [ From Monitor] Respiratory 14 19 15 Rate Respiratory Rate [Anterior Throughout] Blood Pressure 148/70 157/71 143/63 O2 Sat by Pulse 100 94 97 Oximetry O2 Sat by Pulse Oximetry [ Assessment] 08/03/18 08/03/18 08/03/18 00:41 00:51 01:00 Temperature Pulse Rate 70 73 68 Pulse Rate [ Anterior Throughout] Pulse Rate [ From Monitor] Respiratory 14 16 16 Rate Respiratory Rate [Anterior Throughout] Blood Pressure 143/63 148/70 134/66 O2 Sat by Pulse 97 98 98 Oximetry O2 Sat by Pulse Oximetry [ Assessment] 08/03/18 08/03/18 08/03/18 01:11 01:21 01:30 Temperature Pulse Rate 67 67 67 Pulse Rate [ Anterior Throughout] Pulse Rate [ From Monitor] Respiratory 15 15 14 Rate Respiratory Rate [Anterior Throughout] Blood Pressure 134/66 143/63 134/64 O2 Sat by Pulse 98 99 99 Oximetry O2 Sat by Pulse Oximetry [ Assessment] 08/03/18 08/03/18 08/03/18 01:41 01:51 02:00 Temperature Pulse Rate 67 69 69 Pulse Rate [ Anterior Throughout] Pulse Rate [ From Monitor] Respiratory 15 16 13 Rate Respiratory Rate [Anterior Throughout] Blood Pressure 134/64 134/64 140/65 O2 Sat by Pulse 100 97 100 Oximetry O2 Sat by Pulse Oximetry [ Assessment] 08/03/18 08/03/18 08/03/18 02:11 02:21 02:30 Temperature Pulse Rate 69 70 69 Pulse Rate [ Anterior Throughout] Pulse Rate [ From Monitor] Respiratory 12 14 14 Rate Respiratory Rate [Anterior Throughout] Blood Pressure 140/65 140/65 144/69 O2 Sat by Pulse 100 95 100 Oximetry O2 Sat by Pulse 100 Oximetry [ Assessment] 08/03/18 08/03/18 08/03/18 02:41 02:51 03:00 Temperature Pulse Rate 68 68 67 Pulse Rate [ Anterior Throughout] Pulse Rate [ From Monitor] Respiratory 13 12 13 Rate Respiratory Rate [Anterior Throughout] Blood Pressure 144/69 140/65 140/63 O2 Sat by Pulse 100 99 99 Oximetry O2 Sat by Pulse Oximetry [ Assessment] 08/03/18 08/03/18 08/03/18 03:10 03:21 03:30 Temperature Pulse Rate 67 68 68 Pulse Rate [ Anterior Throughout] Pulse Rate [ From Monitor] Respiratory 13 13 13 Rate Respiratory Rate [Anterior Throughout] Blood Pressure 140/63 140/63 144/67 O2 Sat by Pulse 98 97 98 Oximetry O2 Sat by Pulse Oximetry [ Assessment] 08/03/18 08/03/18 08/03/18 03:41 03:51 04:00 Temperature 98.6 F Pulse Rate 69 68 68 Pulse Rate [ Anterior Throughout] Pulse Rate [ From Monitor] Respiratory 13 12 13 Rate Respiratory Rate [Anterior Throughout] Blood Pressure 144/67 144/67 142/67 O2 Sat by Pulse 100 98 100 Oximetry O2 Sat by Pulse Oximetry [ Assessment] 08/03/18 08/03/18 08/03/18 04:11 04:21 04:30 Temperature Pulse Rate 75 74 73 Pulse Rate [ Anterior Throughout] Pulse Rate [ From Monitor] Respiratory 17 14 14 Rate Respiratory Rate [Anterior Throughout] Blood Pressure 142/67 142/67 138/65 O2 Sat by Pulse 99 98 98 Oximetry O2 Sat by Pulse Oximetry [ Assessment] 08/03/18 08/03/18 08/03/18 04:41 04:51 05:00 Temperature Pulse Rate 75 80 79 Pulse Rate [ Anterior Throughout] Pulse Rate [ From Monitor] Respiratory 21 11 L 19 Rate Respiratory Rate [Anterior Throughout] Blood Pressure 138/65 138/65 138/65 O2 Sat by Pulse 100 99 96 Oximetry O2 Sat by Pulse Oximetry [ Assessment] 08/03/18 08/03/18 08/03/18 05:11 05:21 05:30 Temperature Pulse Rate 78 77 77 Pulse Rate [ Anterior Throughout] Pulse Rate [ From Monitor] Respiratory 20 20 18 Rate Respiratory Rate [Anterior Throughout] Blood Pressure 139/64 139/64 144/66 O2 Sat by Pulse 96 97 100 Oximetry O2 Sat by Pulse Oximetry [ Assessment] 08/03/18 08/03/18 08/03/18 05:41 05:51 06:00 Temperature Pulse Rate 78 75 75 Pulse Rate [ Anterior Throughout] Pulse Rate [ From Monitor] Respiratory 16 11 L 17 Rate Respiratory Rate [Anterior Throughout] Blood Pressure 144/66 144/66 151/72 O2 Sat by Pulse 100 100 100 Oximetry O2 Sat by Pulse Oximetry [ Assessment] 08/03/18 08/03/18 08/03/18 06:11 06:21 06:30 Temperature Pulse Rate 78 76 74 Pulse Rate [ Anterior Throughout] Pulse Rate [ From Monitor] Respiratory 14 22 15 Rate Respiratory Rate [Anterior Throughout] Blood Pressure 151/72 151/72 146/74 O2 Sat by Pulse 100 100 100 Oximetry O2 Sat by Pulse Oximetry [ Assessment] 08/03/18 08/03/18 08/03/18 06:41 06:51 07:00 Temperature Pulse Rate 74 73 76 Pulse Rate [ Anterior Throughout] Pulse Rate [ From Monitor] Respiratory 17 15 17 Rate Respiratory Rate [Anterior Throughout] Blood Pressure 146/74 146/74 155/75 O2 Sat by Pulse 100 100 100 Oximetry O2 Sat by Pulse Oximetry [ Assessment] 08/03/18 08/03/18 08/03/18 07:11 07:21 07:30 Temperature Pulse Rate 73 73 76 Pulse Rate [ Anterior Throughout] Pulse Rate [ From Monitor] Respiratory 15 10 L 12 Rate Respiratory Rate [Anterior Throughout] Blood Pressure 155/75 155/75 159/74 O2 Sat by Pulse 100 100 100 Oximetry O2 Sat by Pulse Oximetry [ Assessment] 08/03/18 08/03/18 08/03/18 07:41 07:51 07:54 Temperature Pulse Rate 76 76 Pulse Rate [ 76 Anterior Throughout] Pulse Rate [ From Monitor] Respiratory 15 18 Rate Respiratory 18 Rate [Anterior Throughout] Blood Pressure 159/74 159/74 O2 Sat by Pulse 100 100 Oximetry O2 Sat by Pulse Oximetry [ Assessment] 08/03/18 08/03/18 08/03/18 07:56 07:58 08:00 Temperature 98.5 F Pulse Rate 75 Pulse Rate [ 76 Anterior Throughout] Pulse Rate [ 75 From Monitor] Respiratory 16 Rate Respiratory 17 Rate [Anterior Throughout] Blood Pressure 153/71 O2 Sat by Pulse 100 Oximetry O2 Sat by Pulse 99 Oximetry [ Assessment] 08/03/18 08/03/18 08/03/18 08:11 08:21 08:30 Temperature Pulse Rate 74 72 76 Pulse Rate [ Anterior Throughout] Pulse Rate [ From Monitor] Respiratory 14 12 14 Rate Respiratory Rate [Anterior Throughout] Blood Pressure 153/71 153/71 155/77 O2 Sat by Pulse 100 99 100 Oximetry O2 Sat by Pulse Oximetry [ Assessment] 08/03/18 08/03/18 08/03/18 08:41 08:51 09:00 Temperature Pulse Rate 74 76 76 Pulse Rate [ Anterior Throughout] Pulse Rate [ From Monitor] Respiratory 12 16 18 Rate Respiratory Rate [Anterior Throughout] Blood Pressure 155/77 155/77 153/76 O2 Sat by Pulse 100 100 100 Oximetry O2 Sat by Pulse Oximetry [ Assessment] 08/03/18 08/03/18 08/03/18 09:11 09:21 09:27 Temperature Pulse Rate 76 76 77 Pulse Rate [ Anterior Throughout] Pulse Rate [ From Monitor] Respiratory 15 14 Rate Respiratory Rate [Anterior Throughout] Blood Pressure 153/76 153/76 153/76 O2 Sat by Pulse 100 99 Oximetry O2 Sat by Pulse Oximetry [ Assessment] 08/03/18 08/03/18 08/03/18 09:28 09:30 09:39 Temperature Pulse Rate 77 78 77 Pulse Rate [ Anterior Throughout] Pulse Rate [ From Monitor] Respiratory 16 Rate Respiratory Rate [Anterior Throughout] Blood Pressure 153/76 151/77 151/77 O2 Sat by Pulse 100 Oximetry O2 Sat by Pulse Oximetry [ Assessment] 08/03/18 08/03/18 08/03/18 09:41 09:51 10:01 Temperature Pulse Rate 76 80 82 Pulse Rate [ Anterior Throughout] Pulse Rate [ From Monitor] Respiratory 14 11 L 16 Rate Respiratory Rate [Anterior Throughout] Blood Pressure 151/77 151/77 158/73 O2 Sat by Pulse 98 100 99 Oximetry O2 Sat by Pulse Oximetry [ Assessment] 02/20/19 02/20/19 02/20/19 10:11 10:21 10:30 Temperature Pulse Rate 81 79 77 Pulse Rate [ Anterior Throughout] Pulse Rate [ From Monitor] Respiratory 19 8 L 14 Rate Respiratory Rate [Anterior Throughout] Blood Pressure 158/73 158/73 158/80 O2 Sat by Pulse 99 100 100 Oximetry O2 Sat by Pulse Oximetry [ Assessment] 08/03/18 08/03/18 10:41 10:51 Temperature Pulse Rate 78 78 Pulse Rate [ Anterior Throughout] Pulse Rate [ From Monitor] Respiratory 20 19 Rate Respiratory Rate [Anterior Throughout] Blood Pressure 158/80 158/80 O2 Sat by Pulse 100 100 Oximetry O2 Sat by Pulse Oximetry [ Assessment] - Labs CBC & Chem 7: 08/03/18 07:43 08/03/18 07:43 Labs: Abnormal lab results 08/02/18 08/02/18 08/02/18 Range/Units 16:22 16:22 17:21 RBC 2.42 L (3.65-5.03) M/mm3 Hgb 8.1 L (10.1-14.3) gm/dl Hct 22.8 L (30.3-42.9) % MCH 34 H (28-32) pg MCHC 36 H (30-34) % RDW 15.7 H (13.2-15.2) % Seg Neuts % (Manual) 94.0 H (40.0-70.0) % Lymphocytes % (Manual) 6.0 L (13.4-35.0) % Seg Neutrophils # Man 9.9 H (1.8-7.7) K/mm3 Lymphocytes # (Manual) 0.6 L (1.2-5.4) K/mm3 Sodium 134 L (137-145) mmol/L Chloride 90.7 L (98-107) mmol/L BUN 38 H (7-17) mg/dL Creatinine 4.8 H (0.7-1.2) mg/dL Glucose 175 H (65-100) mg/dL POC Glucose 191 H (70-105) ALT < 5 L (7-56) units/L Albumin 2.9 L (3.9-5) g/dL 08/03/18 08/03/18 08/03/18 Range/Units 05:19 07:43 07:43 RBC 2.67 L (3.65-5.03) M/mm3 Hgb 8.3 L (10.1-14.3) gm/dl Hct 24.9 L (30.3-42.9) % MCH (28-32) pg MCHC (30-34) % RDW 15.6 H (13.2-15.2) % Seg Neuts % (Manual) (40.0-70.0) % Lymphocytes % (Manual) (13.4-35.0) % Seg Neutrophils # Man (1.8-7.7) K/mm3 Lymphocytes # (Manual) (1.2-5.4) K/mm3 Sodium 134 L (137-145) mmol/L Chloride 89.7 L (98-107) mmol/L BUN 52 H (7-17) mg/dL Creatinine 5.9 H (0.7-1.2) mg/dL Glucose 180 H (65-100) mg/dL POC Glucose 212 H (70-105) ALT (7-56) units/L Albumin (3.9-5) g/dL
[2018-08-03] MEDS: HEPARIN SUB-Q SCH ×2 (13:46→22:55)
[2018-08-03] MEDS ORDERED: NACL 0.9 (PRIMING MACHINE ONLY DIALYSIS) MC ONE (16:42)
--- NOTE | 2018-08-03 19:18 | Progress Note ---
Assessment and Plan Acute on Chronic hypoxemic respiratory failure Acute on Chronic Encephalopathy (Toxic / Metabolic / Anoxic) Diabetes type II End-stage renal disease, on dialysis Wednesday, Wednesday and Wednesday Cardiomyopathy (S/P AICD implantation) Anemia of chronic disease Leukocytosis Adult failure to thrive s/p trachesotomy Oropharyngeal dysphagia (s/p PEG) S/p PPM for sinus arrest s/p Mitral valve repair h/o Mitral Valve SBE Atrial Fibrillation (Paroxysmal) - add seroquel for delirium / anxiety - continue RTC T-piece as tolerated - PT/OT as tolerated - continue VTE and Stress ulcer prophylaxis - continue enteric feedings as tolerated - continue accucheck with glycemic control. Target blood glucose of 140-180mg/dL - continue to monitor closely for hypoglycemia - continue bronchodilators with pulmonary hygiene per RT - Wean supplemental oxygen for O2 sats > 90% - continue supportive HD/UF for toxin and volume clearance - CXR and ABG as indicated - continue other care per attending / other consultants .... re-evaluate in am & prn Subjective Date of service: 08/03/18 Interval history: Patient is seen today for: Acute on Chronic hypoxemic respiratory failure; Acute Encephalopathy (Toxic / Metabolic / Anoxic); Diabetes type II; End-stage renal disease (M/W/F) Seen and examined at bedside; 24hour events reviewed; nursing and respiratory care staff consulted; no adverse overnight events reported to me; resting peacefully in bed; anxious; on t-piece and tolerating well; no emesis or overt aspiration; No new issues otherwise Objective Vital Signs - 12hr 08/03/18 08/03/18 08/03/18 07:21 07:30 07:41 Temperature Pulse Rate 73 76 76 Pulse Rate [ Anterior Throughout] Pulse Rate [ From Monitor] Respiratory 10 L 12 15 Rate Respiratory Rate [Anterior Throughout] Blood Pressure 155/75 159/74 159/74 O2 Sat by Pulse 100 100 100 Oximetry O2 Sat by Pulse Oximetry [ Anterior Throughout] O2 Sat by Pulse Oximetry [ Assessment] 08/03/18 08/03/18 08/03/18 07:51 07:54 07:56 Temperature Pulse Rate 76 Pulse Rate [ 76 76 Anterior Throughout] Pulse Rate [ From Monitor] Respiratory 18 Rate Respiratory 18 17 Rate [Anterior Throughout] Blood Pressure 159/74 O2 Sat by Pulse 100 Oximetry O2 Sat by Pulse Oximetry [ Anterior Throughout] O2 Sat by Pulse Oximetry [ Assessment] 08/03/18 08/03/18 08/03/18 07:58 08:00 08:11 Temperature 98.5 F Pulse Rate 75 74 Pulse Rate [ Anterior Throughout] Pulse Rate [ 75 From Monitor] Respiratory 16 14 Rate Respiratory Rate [Anterior Throughout] Blood Pressure 153/71 153/71 O2 Sat by Pulse 100 100 Oximetry O2 Sat by Pulse Oximetry [ Anterior Throughout] O2 Sat by Pulse 99 Oximetry [ Assessment] 08/03/18 08/03/18 08/03/18 08:21 08:30 08:41 Temperature Pulse Rate 72 76 74 Pulse Rate [ Anterior Throughout] Pulse Rate [ From Monitor] Respiratory 12 14 12 Rate Respiratory Rate [Anterior Throughout] Blood Pressure 153/71 155/77 155/77 O2 Sat by Pulse 99 100 100 Oximetry O2 Sat by Pulse Oximetry [ Anterior Throughout] O2 Sat by Pulse Oximetry [ Assessment] 08/03/18 08/03/18 08/03/18 08:51 09:00 09:11 Temperature Pulse Rate 76 76 76 Pulse Rate [ Anterior Throughout] Pulse Rate [ From Monitor] Respiratory 16 18 15 Rate Respiratory Rate [Anterior Throughout] Blood Pressure 155/77 153/76 153/76 O2 Sat by Pulse 100 100 100 Oximetry O2 Sat by Pulse Oximetry [ Anterior Throughout] O2 Sat by Pulse Oximetry [ Assessment] 08/03/18 08/03/18 08/03/18 09:21 09:27 09:28 Temperature Pulse Rate 76 77 77 Pulse Rate [ Anterior Throughout] Pulse Rate [ From Monitor] Respiratory 14 Rate Respiratory Rate [Anterior Throughout] Blood Pressure 153/76 153/76 153/76 O2 Sat by Pulse 99 Oximetry O2 Sat by Pulse Oximetry [ Anterior Throughout] O2 Sat by Pulse Oximetry [ Assessment] 08/03/18 08/03/18 08/03/18 09:30 09:39 09:41 Temperature Pulse Rate 78 77 76 Pulse Rate [ Anterior Throughout] Pulse Rate [ From Monitor] Respiratory 16 14 Rate Respiratory Rate [Anterior Throughout] Blood Pressure 151/77 151/77 151/77 O2 Sat by Pulse 100 98 Oximetry O2 Sat by Pulse Oximetry [ Anterior Throughout] O2 Sat by Pulse Oximetry [ Assessment] 08/03/18 08/03/18 08/03/18 09:51 10:01 10:11 Temperature Pulse Rate 80 82 81 Pulse Rate [ Anterior Throughout] Pulse Rate [ From Monitor] Respiratory 11 L 16 19 Rate Respiratory Rate [Anterior Throughout] Blood Pressure 151/77 158/73 158/73 O2 Sat by Pulse 100 99 99 Oximetry O2 Sat by Pulse Oximetry [ Anterior Throughout] O2 Sat by Pulse Oximetry [ Assessment] 08/03/18 08/03/18 08/03/18 10:21 10:30 10:41 Temperature Pulse Rate 79 77 78 Pulse Rate [ Anterior Throughout] Pulse Rate [ From Monitor] Respiratory 8 L 14 20 Rate Respiratory Rate [Anterior Throughout] Blood Pressure 158/73 158/80 158/80 O2 Sat by Pulse 100 100 100 Oximetry O2 Sat by Pulse Oximetry [ Anterior Throughout] O2 Sat by Pulse Oximetry [ Assessment] 08/03/18 08/03/18 08/03/18 10:51 11:00 11:11 Temperature Pulse Rate 78 78 78 Pulse Rate [ Anterior Throughout] Pulse Rate [ From Monitor] Respiratory 19 16 18 Rate Respiratory Rate [Anterior Throughout] Blood Pressure 158/80 161/79 161/79 O2 Sat by Pulse 100 100 100 Oximetry O2 Sat by Pulse Oximetry [ Anterior Throughout] O2 Sat by Pulse Oximetry [ Assessment] 08/03/18 08/03/18 08/03/18 11:21 12:31 12:32 Temperature 98.2 F Pulse Rate 80 81 Pulse Rate [ Anterior Throughout] Pulse Rate [ From Monitor] Respiratory 21 20 Rate Respiratory Rate [Anterior Throughout] Blood Pressure 161/79 151/65 O2 Sat by Pulse 100 99 Oximetry O2 Sat by Pulse Oximetry [ Anterior Throughout] O2 Sat by Pulse Oximetry [ Assessment] 08/03/18 08/03/18 08/03/18 13:28 13:49 15:25 Temperature 97.9 F Pulse Rate 80 Pulse Rate [ 80 82 Anterior Throughout] Pulse Rate [ From Monitor] Respiratory 15 Rate Respiratory 18 18 Rate [Anterior Throughout] Blood Pressure 149/74 O2 Sat by Pulse Oximetry O2 Sat by Pulse 100 Oximetry [ Anterior Throughout] O2 Sat by Pulse Oximetry [ Assessment] 08/03/18 08/03/18 08/03/18 15:35 15:45 16:00 Temperature Pulse Rate 81 81 81 Pulse Rate [ Anterior Throughout] Pulse Rate [ From Monitor] Respiratory Rate Respiratory Rate [Anterior Throughout] Blood Pressure 138/65 137/66 136/71 O2 Sat by Pulse Oximetry O2 Sat by Pulse Oximetry [ Anterior Throughout] O2 Sat by Pulse Oximetry [ Assessment] 08/03/18 08/03/18 08/03/18 16:15 16:30 16:45 Temperature Pulse Rate 79 80 81 Pulse Rate [ Anterior Throughout] Pulse Rate [ From Monitor] Respiratory Rate Respiratory Rate [Anterior Throughout] Blood Pressure 141/69 149/70 145/71 O2 Sat by Pulse Oximetry O2 Sat by Pulse Oximetry [ Anterior Throughout] O2 Sat by Pulse Oximetry [ Assessment] 08/03/18 08/03/18 08/03/18 17:00 17:15 17:30 Temperature Pulse Rate 83 83 80 Pulse Rate [ Anterior Throughout] Pulse Rate [ From Monitor] Respiratory Rate Respiratory Rate [Anterior Throughout] Blood Pressure 141/70 150/65 143/66 O2 Sat by Pulse Oximetry O2 Sat by Pulse Oximetry [ Anterior Throughout] O2 Sat by Pulse Oximetry [ Assessment] 08/03/18 08/03/18 08/03/18 17:45 18:00 18:15 Temperature Pulse Rate 82 81 80 Pulse Rate [ Anterior Throughout] Pulse Rate [ From Monitor] Respiratory Rate Respiratory Rate [Anterior Throughout] Blood Pressure 135/36 166/71 142/68 O2 Sat by Pulse Oximetry O2 Sat by Pulse Oximetry [ Anterior Throughout] O2 Sat by Pulse Oximetry [ Assessment] 08/03/18 18:30 Temperature Pulse Rate 80 Pulse Rate [ Anterior Throughout] Pulse Rate [ From Monitor] Respiratory Rate Respiratory Rate [Anterior Throughout] Blood Pressure 121/105 O2 Sat by Pulse Oximetry O2 Sat by Pulse Oximetry [ Anterior Throughout] O2 Sat by Pulse Oximetry [ Assessment] Constitutional: alert, appears uncomfortable, other (middle aged AAF, normocephalic with mildly increased respiratory effort on t-piece) Eyes: non-icteric ENT: oropharynx moist Neck: supple, no lymphadenopathy, no JVD, other (+ midline tracheostomy tube) Effort: mildly labored Ascultation: Bilateral: diminished breath sounds, rhonchi Percussion: Bilateral: not dull Cardiovascular: regular rate and rhythm, murmur noted (systolic) Gastrointestinal: normoactive bowel sounds, soft, non-tender, non-distended Integumentary: rash Extremities: no cyanosis, no edema, pulses normal, no ischemia or petechiae Neurologic: non-focal exam (grossly), pupils equal and round, CN II-XII normal, motor strength normal and, other (delirium vs dementia element) Psychiatric: anxious, other (delirium vs dementia element) CBC and BMP: 08/03/18 07:43 08/03/18 07:43 ABG, PT/INR, D-dimer: ABG POC ABG pH 7.403 (7.35-7.45) 08/02/18 09:07 POC ABG pCO2 43.2 (35-45) 08/02/18 09:07 POC ABG pO2 125 (80-105) H 08/02/18 09:07 POC ABG HCO3 26.9 08/02/18 09:07 POC ABG Total CO2 28 08/02/18 09:07 POC ABG O2 Sat 99 08/02/18 09:07 PT/INR, D-dimer PT 14.4 Sec. (12.2-14.9) 08/01/18 11:30 INR 1.05 (0.87-1.13) 08/01/18 11:30 Abnormal lab findings: Abnormal Labs 08/01/18 08/01/18 08/01/18 11:30 11:30 11:30 WBC 13.7 H RBC 2.81 L Hgb 8.9 L Hct 27.4 L MCV 98 H MCH MCHC RDW 16.0 H Lymph % (Auto) 10.1 L Seg Neutrophils % 84.3 H Seg Neuts % (Manual) Lymphocytes % (Manual) Seg Neutrophils # 11.6 H Seg Neutrophils # Man Lymphocytes # (Manual) APTT 23.5 L POC ABG pCO2 POC ABG pO2 Sodium 133 L Chloride 89.8 L BUN 78 H Creatinine 8.7 H D Glucose 177 H POC Glucose Magnesium ALT Albumin 08/01/18 08/01/18 08/02/18 18:38 19:56 09:07 WBC RBC Hgb Hct MCV MCH MCHC RDW Lymph % (Auto) Seg Neutrophils % Seg Neuts % (Manual) Lymphocytes % (Manual) Seg Neutrophils # Seg Neutrophils # Man Lymphocytes # (Manual) APTT POC ABG pCO2 48.2 H POC ABG pO2 146 H 125 H Sodium Chloride BUN Creatinine Glucose POC Glucose Magnesium 2.80 H ALT Albumin 08/02/18 08/02/18 08/02/18 16:22 16:22 17:21 WBC RBC 2.42 L Hgb 8.1 L Hct 22.8 L MCV MCH 34 H MCHC 36 H RDW 15.7 H Lymph % (Auto) Seg Neutrophils % Seg Neuts % (Manual) 94.0 H Lymphocytes % (Manual) 6.0 L Seg Neutrophils # Seg Neutrophils # Man 9.9 H Lymphocytes # (Manual) 0.6 L APTT POC ABG pCO2 POC ABG pO2 Sodium 134 L Chloride 90.7 L BUN 38 H Creatinine 4.8 H Glucose 175 H POC Glucose 191 H Magnesium ALT < 5 L Albumin 2.9 L 08/03/18 08/03/18 08/03/18 05:19 07:43 07:43 WBC RBC 2.67 L Hgb 8.3 L Hct 24.9 L MCV MCH MCHC RDW 15.6 H Lymph % (Auto) Seg Neutrophils % Seg Neuts % (Manual) Lymphocytes % (Manual) Seg Neutrophils # Seg Neutrophils # Man Lymphocytes # (Manual) APTT POC ABG pCO2 POC ABG pO2 Sodium 134 L Chloride 89.7 L BUN 52 H Creatinine 5.9 H Glucose 180 H POC Glucose 212 H Magnesium ALT Albumin 08/03/18 12:32 WBC RBC Hgb Hct MCV MCH MCHC RDW Lymph % (Auto) Seg Neutrophils % Seg Neuts % (Manual) Lymphocytes % (Manual) Seg Neutrophils # Seg Neutrophils # Man Lymphocytes # (Manual) APTT POC ABG pCO2 POC ABG pO2 Sodium Chloride BUN Creatinine Glucose POC Glucose 223 H Magnesium ALT Albumin Chest x-ray: image reviewed (trach tube in good position)
--- NOTE | 2018-08-03 21:33 | Progress Note ---
Assessment and Plan 1. ESRD: Continue hemodialysis three times a week, MWF schedule. HD today. 2. Respiratory failure: Trached, on T-piece. 3. Anemia: Epogen with HD. 4. H/o Cardiac arrest. 5. H/o CVA. 6. Anoxic encephalopathy. Subjective Date of service: 08/03/18 Interval history: Patient was seen and examined at the bedside. Objective - Vital Signs Vital signs: Vital Signs - 12hr 08/03/18 08/03/18 08/03/18 09:39 09:41 09:51 Temperature Pulse Rate 77 76 80 Pulse Rate [ Anterior Throughout] Respiratory 14 11 L Rate Respiratory Rate [Anterior Throughout] Blood Pressure 151/77 151/77 151/77 Blood Pressure [Right] O2 Sat by Pulse 98 100 Oximetry O2 Sat by Pulse Oximetry [ Anterior Throughout] 08/03/18 08/03/18 08/03/18 10:01 10:11 10:21 Temperature Pulse Rate 82 81 79 Pulse Rate [ Anterior Throughout] Respiratory 16 19 8 L Rate Respiratory Rate [Anterior Throughout] Blood Pressure 158/73 158/73 158/73 Blood Pressure [Right] O2 Sat by Pulse 99 99 100 Oximetry O2 Sat by Pulse Oximetry [ Anterior Throughout] 08/03/18 08/03/18 08/03/18 10:30 10:41 10:51 Temperature Pulse Rate 77 78 78 Pulse Rate [ Anterior Throughout] Respiratory 14 20 19 Rate Respiratory Rate [Anterior Throughout] Blood Pressure 158/80 158/80 158/80 Blood Pressure [Right] O2 Sat by Pulse 100 100 100 Oximetry O2 Sat by Pulse Oximetry [ Anterior Throughout] 08/03/18 08/03/18 08/03/18 11:00 11:11 11:21 Temperature Pulse Rate 78 78 80 Pulse Rate [ Anterior Throughout] Respiratory 16 18 21 Rate Respiratory Rate [Anterior Throughout] Blood Pressure 161/79 161/79 161/79 Blood Pressure [Right] O2 Sat by Pulse 100 100 100 Oximetry O2 Sat by Pulse Oximetry [ Anterior Throughout] 08/03/18 08/03/18 08/03/18 12:31 12:32 13:28 Temperature 98.2 F Pulse Rate 81 Pulse Rate [ 80 Anterior Throughout] Respiratory 20 Rate Respiratory 18 Rate [Anterior Throughout] Blood Pressure 151/65 Blood Pressure [Right] O2 Sat by Pulse 99 Oximetry O2 Sat by Pulse Oximetry [ Anterior Throughout] 08/03/18 08/03/18 08/03/18 13:49 15:25 15:35 Temperature 97.9 F Pulse Rate 80 81 Pulse Rate [ 82 Anterior Throughout] Respiratory 15 Rate Respiratory 18 Rate [Anterior Throughout] Blood Pressure 149/74 138/65 Blood Pressure [Right] O2 Sat by Pulse Oximetry O2 Sat by Pulse 100 Oximetry [ Anterior Throughout] 08/03/18 08/03/18 08/03/18 15:45 16:00 16:15 Temperature Pulse Rate 81 81 79 Pulse Rate [ Anterior Throughout] Respiratory Rate Respiratory Rate [Anterior Throughout] Blood Pressure 137/66 136/71 141/69 Blood Pressure [Right] O2 Sat by Pulse Oximetry O2 Sat by Pulse Oximetry [ Anterior Throughout] 08/03/18 08/03/18 08/03/18 16:30 16:45 17:00 Temperature Pulse Rate 80 81 83 Pulse Rate [ Anterior Throughout] Respiratory Rate Respiratory Rate [Anterior Throughout] Blood Pressure 149/70 145/71 141/70 Blood Pressure [Right] O2 Sat by Pulse Oximetry O2 Sat by Pulse Oximetry [ Anterior Throughout] 08/03/18 08/03/18 08/03/18 17:15 17:30 17:45 Temperature Pulse Rate 83 80 82 Pulse Rate [ Anterior Throughout] Respiratory Rate Respiratory Rate [Anterior Throughout] Blood Pressure 150/65 143/66 135/36 Blood Pressure [Right] O2 Sat by Pulse Oximetry O2 Sat by Pulse Oximetry [ Anterior Throughout] 08/03/18 08/03/18 08/03/18 18:00 18:15 18:30 Temperature Pulse Rate 81 80 80 Pulse Rate [ Anterior Throughout] Respiratory Rate Respiratory Rate [Anterior Throughout] Blood Pressure 166/71 142/68 121/105 Blood Pressure [Right] O2 Sat by Pulse Oximetry O2 Sat by Pulse Oximetry [ Anterior Throughout] 08/03/18 08/03/18 19:00 19:13 Temperature 98.3 F 98.2 F Pulse Rate 82 80 Pulse Rate [ Anterior Throughout] Respiratory 18 18 Rate Respiratory Rate [Anterior Throughout] Blood Pressure 132/89 Blood Pressure 151/65 [Right] O2 Sat by Pulse 90 Oximetry O2 Sat by Pulse 100 Oximetry [ Anterior Throughout] - General Appearance General appearance: well-developed, appears stated age, other (not in distress) EENT: ATNC Neck: other (Trached on T-piece) Respiratory: Present: Clear to Ascultation Cardiology: regular, S1S2, no murmurs Gastrointestinal: normoactive bowel sounds, no tenderness, no distended, other (PEG tube noted) Neurologic: other (able to move all 4 extremities) Musculoskeletal: other (left arm AVF / AVG) - Lab 08/03/18 07:43 08/03/18 07:43 Most recent lab results Calcium 8.6 mg/dL (8.4-10.2) 08/03/18 07:43 Magnesium 2.80 mg/dL (1.7-2.3) H 08/01/18 19:56 Medications & Allergies - Medications Allergies/Adverse Reactions: Allergies ondansetron Allergy (Verified 08/01/18 11:00) Anaphylaxis sulfamethoxazole [From Bactrim] Allergy (Verified 08/01/18 11:00) Anaphylaxis trimethoprim [From Bactrim] Allergy (Verified 08/01/18 11:00) Anaphylaxis vancomycin Allergy (Verified 08/01/18 11:00) Anaphylaxis Home Medications: Home Medications Medication Instructions Recorded Confirmed Last Taken Type ALBUTEROL NEB's [Proventil 0.083% 3 ml IH Q4HR 07/26/18 08/01/18 Unknown History NEBS] Metoprolol [Lopressor TAB] 25 mg PO BID tablet 07/29/18 08/01/18 Unknown Rx amLODIPine [Norvasc] 5 mg PO QDAY tablet 07/29/18 08/01/18 Unknown Rx Amiodarone HCl [Pacerone] 200 mg PO DAILY 08/01/18 08/01/18 Unknown History Aspirin [Adult Aspirin] 81 mg PO DAILY 08/01/18 08/01/18 Unknown History Carvedilol [Coreg] 12.5 mg PO BID 08/01/18 08/01/18 Unknown History Famotidine 20 mg PO DAILY 08/01/18 08/01/18 Unknown History Gabapentin [Gralise] 30 mg PO QHS 08/01/18 08/01/18 Unknown History Lispro Insulin [Humalog] 0 unit SQ TID 08/01/18 08/01/18 Unknown History Loperamide [Imodium] 2 mg PO Q6H 08/01/18 08/01/18 Unknown History Sevelamer Carbonate [Renvela] 800 mg PO TIDWM 08/01/18 08/01/18 Unknown History Zinc Sulfate 220 mg PO DAILY 08/01/18 08/01/18 Unknown History Active Medications: Generic Name Dose Route Start Last Admin Trade Name Freq PRN Reason Stop Dose Admin Acetaminophen 650 mg 08/01/18 19:44 Tylenol PO Q4H PRN Pain MILD(1-3)/Fever >100.5/CASAREZ Albuterol/Ipratropium 1 ampul 08/02/18 14:00 08/03/18 13:27 Duoneb *Not For Prn Use* IH 1 ampul TIDRT [facility] Administration Amiodarone HCl 200 mg 08/01/18 22:00 08/03/18 09:27 Cordarone PO 200 mg DAILY [facility] Administration Amlodipine Besylate 5 mg 08/01/18 22:00 08/03/18 09:28 Norvasc PO 5 mg QDAY [facility] Administration Lipase/Protease/Amylase 1 each 08/01/18 19:47 08/03/18 05:51 Pancreaze 10,500 Unit FEEDTUBE 1 each PRN PRN Administration For Clogged Feeding Tube Aspirin 81 mg 08/01/18 22:00 08/03/18 09:27 Halfprin Ec PO 81 mg DAILY [facility] Administration Carvedilol 12.5 mg 08/01/18 22:00 08/03/18 09:27 Coreg PO 12.5 mg BID [facility] Administration Epoetin Beka 20,000 unit 08/02/18 10:41 08/02/18 12:20 Procrit SUB-Q 20,000 unit ANJANA PRN Administration hemodialysis Famotidine 20 mg 08/01/18 22:00 08/03/18 09:26 Pepcid PO 20 mg DAILY [facility] Administration Heparin Sodium (Porcine) 5,000 unit 08/03/18 14:00 08/03/18 13:46 Heparin SUB-Q 5,000 unit Q8HR [facility] Administration Hydromorphone HCl 0.5 mg 08/01/18 19:45 08/02/18 07:26 Dilaudid IV 0.5 mg Q3H PRN Administration Pain , Severe (7-10) Sodium Chloride 100 mls @ 999 mls/hr 08/02/18 09:40 Nacl 0.9% IV ANJANA PRN Hypotension Insulin Human Lispro 0 unit 08/02/18 08:00 08/03/18 18:06 Humalog SUB-Q Not Given Q6HR [facility] Protocol Loperamide HCl 2 mg 08/01/18 22:00 08/03/18 18:06 Imodium PO Not Given Q6HR [facility] Metoprolol Tartrate 25 mg 08/01/18 22:00 08/03/18 09:39 Lopressor PO Not Given BID [facility] Sevelamer Carbonate 800 mg 08/02/18 08:00 08/03/18 18:06 Renvela PO Not Given TIDWM [facility] Simple Syrup 15 ml 08/01/18 19:47 Simple Syrup FEEDTUBE PRN PRN Hypoglycemia Simple Syrup 30 ml 08/01/18 19:47 Simple Syrup FEEDTUBE PRN PRN Hypoglycemia Sodium Bicarbonate 325 mg 08/01/18 19:47 08/03/18 05:51 Sodium Bicarbonate FEEDTUBE 325 mg PRN PRN Administration For Clogged Feeding Tube Sodium Chloride 10 ml 08/01/18 22:00 08/03/18 09:29 Sodium Chloride Flush Syringe 10 Ml IV 10 ml BID [facility] Administration Sodium Chloride 10 ml 08/01/18 19:44 Sodium Chloride Flush Syringe 10 Ml IV PRN PRN LINE FLUSH Zinc Sulfate 220 mg 08/02/18 10:00 08/03/18 09:27 Zinc Sulfate PO 220 mg DAILY [facility] Administration
[2018-08-04] MEDS: HumaLOG SUB-Q SCH ×4 (00:40→17:16)
[2018-08-04] MEDS: IMODIUM PO SCH ×4 (01:00→17:16)
[2018-08-04] MEDS: DILAUDID IV PRN ×2 (01:21→05:32)
[2018-08-04] MEDS: HEPARIN SUB-Q SCH ×3 (05:34→21:24)
[2018-08-04] MEDS: DUONEB *Not for PRN Use IH SCH ×3 (07:41→19:44)
--- NOTE | 2018-08-04 09:43 | Progress Note ---
Assessment and Plan 1. ESRD: Continue hemodialysis three times a week, MWF schedule. 2. Respiratory failure: Trached, on T-piece. 3. Anemia: Epogen with HD. 4. H/o Cardiac arrest. 5. H/o CVA. 6. Anoxic encephalopathy. Await placement. Subjective Date of service: 08/04/18 Interval history: Patient was seen and examined at the bedside. Objective - Vital Signs Vital signs: Vital Signs - 12hr 08/03/18 08/03/18 08/03/18 22:00 22:44 22:45 Temperature Pulse Rate Pulse Rate [ 98 H Anterior Throughout] Respiratory Rate Respiratory 18 Rate [Anterior Throughout] Blood Pressure O2 Sat by Pulse 100 Oximetry O2 Sat by Pulse 98 Oximetry [ Assessment] 08/03/18 08/03/18 08/03/18 22:47 22:54 22:55 Temperature Pulse Rate Pulse Rate [ 92 H Anterior Throughout] Respiratory Rate Respiratory 18 Rate [Anterior Throughout] Blood Pressure 132/89 132/89 O2 Sat by Pulse 98 Oximetry O2 Sat by Pulse Oximetry [ Assessment] 08/03/18 08/04/18 08/04/18 23:08 04:01 05:06 Temperature 98.2 F 98.4 F Pulse Rate 85 79 Pulse Rate [ Anterior Throughout] Respiratory 16 14 Rate Respiratory Rate [Anterior Throughout] Blood Pressure 147/64 133/55 O2 Sat by Pulse 100 100 Oximetry O2 Sat by Pulse 100 Oximetry [ Assessment] 08/04/18 08/04/18 08/04/18 07:41 07:51 08:23 Temperature 97.9 F Pulse Rate Pulse Rate [ 95 H 74 Anterior Throughout] Respiratory Rate Respiratory 18 18 Rate [Anterior Throughout] Blood Pressure O2 Sat by Pulse 100 Oximetry O2 Sat by Pulse Oximetry [ Assessment] 08/04/18 08:24 Temperature Pulse Rate 75 Pulse Rate [ Anterior Throughout] Respiratory 20 Rate Respiratory Rate [Anterior Throughout] Blood Pressure 117/51 O2 Sat by Pulse 100 Oximetry O2 Sat by Pulse Oximetry [ Assessment] - General Appearance General appearance: well-developed, appears stated age, cachectic, other (not in distress) EENT: ATNC, PERRL Neck: other (Trached on T-piece) Respiratory: Present: Clear to Ascultation Cardiology: regular, S1S2, no murmurs Gastrointestinal: normoactive bowel sounds, no tenderness, no distended, other (PEG tube noted) Integumentary: no rash Neurologic: confused, disoriented, other (able to move UEs, tell her name) Musculoskeletal: other (left arm AVF / AVG, no edema) - Lab 08/03/18 07:43 08/03/18 07:43 Most recent lab results Calcium 8.6 mg/dL (8.4-10.2) 08/03/18 07:43 Magnesium 2.80 mg/dL (1.7-2.3) H 08/01/18 19:56 Medications & Allergies - Medications Allergies/Adverse Reactions: Allergies ondansetron Allergy (Verified 08/01/18 11:00) Anaphylaxis sulfamethoxazole [From Bactrim] Allergy (Verified 08/01/18 11:00) Anaphylaxis trimethoprim [From Bactrim] Allergy (Verified 08/01/18 11:00) Anaphylaxis vancomycin Allergy (Verified 08/01/18 11:00) Anaphylaxis Home Medications: Home Medications Medication Instructions Recorded Confirmed Last Taken Type ALBUTEROL NEB's [Proventil 0.083% 3 ml IH Q4HR 07/26/18 08/01/18 Unknown History NEBS] Metoprolol [Lopressor TAB] 25 mg PO BID tablet 07/29/18 08/01/18 Unknown Rx amLODIPine [Norvasc] 5 mg PO QDAY tablet 07/29/18 08/01/18 Unknown Rx Amiodarone HCl [Pacerone] 200 mg PO DAILY 08/01/18 08/01/18 Unknown History Aspirin [Adult Aspirin] 81 mg PO DAILY 08/01/18 08/01/18 Unknown History Carvedilol [Coreg] 12.5 mg PO BID 08/01/18 08/01/18 Unknown History Famotidine 20 mg PO DAILY 08/01/18 08/01/18 Unknown History Gabapentin [Gralise] 30 mg PO QHS 08/01/18 08/01/18 Unknown History Lispro Insulin [Humalog] 0 unit SQ TID 08/01/18 08/01/18 Unknown History Loperamide [Imodium] 2 mg PO Q6H 08/01/18 08/01/18 Unknown History Sevelamer Carbonate [Renvela] 800 mg PO TIDWM 08/01/18 08/01/18 Unknown History Zinc Sulfate 220 mg PO DAILY 08/01/18 08/01/18 Unknown History Active Medications: Generic Name Dose Route Start Last Admin Trade Name Freq PRN Reason Stop Dose Admin Acetaminophen 650 mg 08/01/18 19:44 Tylenol PO Q4H PRN Pain MILD(1-3)/Fever >100.5/CASAREZ Albuterol/Ipratropium 1 ampul 08/02/18 14:00 08/04/18 07:41 Duoneb *Not For Prn Use* IH 1 ampul TIDRT [facility] Administration Amiodarone HCl 200 mg 08/01/18 22:00 08/03/18 09:27 Cordarone PO 200 mg DAILY [facility] Administration Amlodipine Besylate 5 mg 08/01/18 22:00 08/03/18 09:28 Norvasc PO 5 mg QDAY [facility] Administration Lipase/Protease/Amylase 1 each 08/01/18 19:47 08/03/18 23:35 Pancreaze 10,500 Unit FEEDTUBE 1 each PRN PRN Administration For Clogged Feeding Tube Aspirin 81 mg 08/01/18 22:00 08/03/18 09:27 Halfprin Ec PO 81 mg DAILY [facility] Administration Carvedilol 12.5 mg 08/01/18 22:00 08/03/18 22:55 Coreg PO 12.5 mg BID [facility] Administration Epoetin Beka 20,000 unit 08/02/18 10:41 08/02/18 12:20 Procrit SUB-Q 20,000 unit ANJANA PRN Administration hemodialysis Famotidine 20 mg 08/01/18 22:00 08/03/18 09:26 Pepcid PO 20 mg DAILY [facility] Administration Heparin Sodium (Porcine) 5,000 unit 08/03/18 14:00 08/04/18 05:34 Heparin SUB-Q 5,000 unit Q8HR [facility] Administration Hydromorphone HCl 0.5 mg 08/01/18 19:45 08/04/18 05:32 Dilaudid IV 0.5 mg Q3H PRN Administration Pain , Severe (7-10) Sodium Chloride 100 mls @ 999 mls/hr 08/02/18 09:40 Nacl 0.9% IV ANJANA PRN Hypotension Insulin Human Lispro 0 unit 08/02/18 08:00 08/04/18 06:39 Humalog SUB-Q Not Given Q6HR [facility] Protocol Loperamide HCl 2 mg 08/01/18 22:00 08/04/18 05:35 Imodium PO 2 mg Q6HR [facility] Administration Metoprolol Tartrate 25 mg 08/01/18 22:00 08/03/18 22:54 Lopressor PO 25 mg BID [facility] Administration Sevelamer Carbonate 800 mg 08/02/18 08:00 08/03/18 18:06 Renvela PO Not Given TIDWM [facility] Simple Syrup 15 ml 08/01/18 19:47 Simple Syrup FEEDTUBE PRN PRN Hypoglycemia Simple Syrup 30 ml 08/01/18 19:47 Simple Syrup FEEDTUBE PRN PRN Hypoglycemia Sodium Bicarbonate 325 mg 08/01/18 19:47 08/03/18 23:35 Sodium Bicarbonate FEEDTUBE 325 mg PRN PRN Administration For Clogged Feeding Tube Sodium Chloride 10 ml 08/01/18 22:00 08/03/18 22:56 Sodium Chloride Flush Syringe 10 Ml IV 10 ml BID [facility] Administration Sodium Chloride 10 ml 08/01/18 19:44 Sodium Chloride Flush Syringe 10 Ml IV PRN PRN LINE FLUSH Zinc Sulfate 220 mg 08/02/18 10:00 08/03/18 09:27 Zinc Sulfate PO 220 mg DAILY [facility] Administration
[2018-08-04] MEDS: COREG PO SCH ×2 (09:54→21:24)
[2018-08-04] MEDS: LOPRESSOR PO SCH ×2 (09:54→21:24)
[2018-08-04] MEDS: SODIUM CHLORIDE FLUSH SYRINGE 10 ML IV SCH ×2 (09:54→21:52)
[2018-08-04] MEDS: ZINC SULFATE PO SCH (09:54)
[2018-08-04] MEDS: PEPCID PO SCH (09:54)
[2018-08-04] MEDS: CORDARONE PO SCH (09:54)
[2018-08-04] MEDS: RENVELA PO SCH ×3 (09:54→17:16)
[2018-08-04] MEDS: NORVASC PO SCH (09:54)
[2018-08-04] MEDS: HALFPRIN EC PO SCH (09:54)
[2018-08-04] MEDS ORDERED: SIMPLE SYRUP FEEDTUBE PRN ×2 (10:24)
[2018-08-04] MEDS ORDERED: SODIUM BICARBONATE FEEDTUBE PRN (10:24)
[2018-08-04] MEDS ORDERED: PANCREAZE DR 10,500 UNIT FEEDTUBE PRN (10:24)
--- NOTE | 2018-08-04 12:13 | Consultation ---
History of Present Illness Consult date: 08/04/18 Chief complaint: Sacral pressure ulcer - History of present illness History of present illness: 58 yo female with a sacral pressure ulcer. She has a tracheostomy. She is s/p CVA and also has ESRD and DM. Past History Past Medical History: anemia, diabetes, dialysis, ESRD, hypertension, stroke Medications and Allergies Allergies Allergy/AdvReac Type Severity Reaction Status Date / Time ondansetron Allergy Anaphylaxis Verified 08/01/18 11:00 sulfamethoxazole Allergy Anaphylaxis Verified 08/01/18 11:00 [From Bactrim] trimethoprim [From Bactrim] Allergy Anaphylaxis Verified 08/01/18 11:00 vancomycin Allergy Anaphylaxis Verified 08/01/18 11:00 Home Medications Medication Instructions Recorded Confirmed Last Taken Type ALBUTEROL NEB's [Proventil 0.083% 3 ml IH Q4HR 07/26/18 08/01/18 Unknown History NEBS] Metoprolol [Lopressor TAB] 25 mg PO BID tablet 07/29/18 08/01/18 Unknown Rx amLODIPine [Norvasc] 5 mg PO QDAY tablet 07/29/18 08/01/18 Unknown Rx Amiodarone HCl [Pacerone] 200 mg PO DAILY 08/01/18 08/01/18 Unknown History Aspirin [Adult Aspirin] 81 mg PO DAILY 08/01/18 08/01/18 Unknown History Carvedilol [Coreg] 12.5 mg PO BID 08/01/18 08/01/18 Unknown History Famotidine 20 mg PO DAILY 08/01/18 08/01/18 Unknown History Gabapentin [Gralise] 30 mg PO QHS 08/01/18 08/01/18 Unknown History Lispro Insulin [Humalog] 0 unit SQ TID 08/01/18 08/01/18 Unknown History Loperamide [Imodium] 2 mg PO Q6H 08/01/18 08/01/18 Unknown History Sevelamer Carbonate [Renvela] 800 mg PO TIDWM 08/01/18 08/01/18 Unknown History Zinc Sulfate 220 mg PO DAILY 08/01/18 08/01/18 Unknown History Active Meds: Active Medications Acetaminophen (Tylenol) 650 mg PO Q4H PRN PRN Reason: Pain MILD(1-3)/Fever >100.5/CASAREZ Albuterol/Ipratropium (Duoneb *Not For Prn Use*) 1 ampul IH TIDRT [facility] Last Admin: 08/04/18 07:41 Dose: 1 ampul Documented by: Amiodarone HCl (Cordarone) 200 mg PO DAILY [facility] Last Admin: 08/04/18 09:54 Dose: 200 mg Documented by: Amlodipine Besylate (Norvasc) 5 mg PO QDAY [facility] Last Admin: 08/04/18 09:54 Dose: 5 mg Documented by: Lipase/Protease/Amylase (Pancretevin Dr 10,500 Unit) 1 each FEEDTUBE PRN PRN PRN Reason: For Clogged Feeding Tube Aspirin (Halfprin Ec) 81 mg PO DAILY [facility] Last Admin: 08/04/18 09:54 Dose: 81 mg Documented by: Carvedilol (Coreg) 12.5 mg PO BID [facility] Last Admin: 08/04/18 09:54 Dose: 12.5 mg Documented by: Epoetin Beka (Procrit) 20,000 unit SUB-Q ANJANA PRN PRN Reason: hemodialysis Last Admin: 08/02/18 12:20 Dose: 20,000 unit Documented by: Famotidine (Pepcid) 20 mg PO DAILY [facility] Last Admin: 08/04/18 09:54 Dose: 20 mg Documented by: Heparin Sodium (Porcine) (Heparin) 5,000 unit SUB-Q Q8HR [facility] Last Admin: 08/04/18 05:34 Dose: 5,000 unit Documented by: Hydromorphone HCl (Dilaudid) 0.5 mg IV Q3H PRN PRN Reason: Pain , Severe (7-10) Last Admin: 08/04/18 05:32 Dose: 0.5 mg Documented by: Sodium Chloride (Nacl 0.9%) 100 mls @ 999 mls/hr IV ANJANA PRN PRN Reason: Hypotension Insulin Human Lispro (Humalog) 0 unit SUB-Q Q6HR [facility]; Protocol Last Admin: 08/04/18 06:39 Dose: Not Given Documented by: Loperamide HCl (Imodium) 2 mg PO Q6HR [facility] Last Admin: 08/04/18 05:35 Dose: 2 mg Documented by: Metoprolol Tartrate (Lopressor) 25 mg PO BID [facility] Last Admin: 08/04/18 09:54 Dose: 25 mg Documented by: Sevelamer Carbonate (Renvela) 800 mg PO TIDWM [facility] Last Admin: 08/04/18 09:54 Dose: 800 mg Documented by: Simple Syrup (Simple Syrup) 15 ml FEEDTUBE PRN PRN PRN Reason: Hypoglycemia Simple Syrup (Simple Syrup) 30 ml FEEDTUBE PRN PRN PRN Reason: Hypoglycemia Sodium Bicarbonate (Sodium Bicarbonate) 325 mg FEEDTUBE PRN PRN PRN Reason: For Clogged Feeding Tube Sodium Chloride (Sodium Chloride Flush Syringe 10 Ml) 10 ml IV BID [facility] Last Admin: 08/04/18 09:54 Dose: 10 ml Documented by: Sodium Chloride (Sodium Chloride Flush Syringe 10 Ml) 10 ml IV PRN PRN PRN Reason: LINE FLUSH Zinc Sulfate (Zinc Sulfate) 220 mg PO DAILY [facility] Last Admin: 08/04/18 09:54 Dose: 220 mg Documented by: Review of Systems ROS unobtainable: due to mental status Exam Vital Signs Pulse Resp BP Pulse Ox 71 25 H 94/47 100 08/01/18 10:45 08/01/18 10:45 08/01/18 10:45 08/01/18 10:45 - General physical appearance Positive: well developed, well nourished, no distress - Eyes Positive: PERRL, normal occular movement - ENT Positive: normal pinna, normal nares, normal mucosa, no hearing loss, no congestion - Neck Positive: no masses, no bruits, other (Tracheostomy in place) - Respiratory Positive: normal expansion, normal respiratory effort, clear to auscultation - Cardiovascular Rhythm: regular Heart Sounds: Present: S1 & S2. Absent: rub, click - Extremities Extremities: no ischemia, pulses symmetrical, No edema - Breasts Breasts: deferred - Abdomen Abdomen: Present: soft, bowel sounds normal. Absent: tender, distended Hernia: none - Genitourinary Female Genitourinary: deferred - Integumentary other (There is a 3.5 X 3.5 X 3 cm stage 3 sacral pressure ulcer. This is fairly clean without active infection.) - Neurologic Neurologic: other (Not evaluable.) - Psychiatric Psychiatric: agitated Results - Labs 08/03/18 07:43 08/03/18 07:43 Abnormal lab results 08/03/18 08/03/18 08/04/18 Range/Units 12:32 23:42 05:42 POC Glucose 223 H 139 H 151 H (70-105) Assessment and Plan - Patient Problems (1) Pressure ulcer of sacral region, stage 3 Current Visit: Yes Status: Acute Plan to address problem: 1) Off loading 2) Will ask Wound Care nurses to place a wound vac. 3) Intense nutritional support
--- NOTE | 2018-08-04 16:00 | Progress Note ---
Assessment and Plan / Acute on chronic respiratory failure with hypoxia Sec to improper or delayed suctioning at [place] Daughter wants a different SNF Patient has been optimized to a large extent and discharged on Jul 29. Continue scheduled breathing treatments, t-tube suction cont Antibiotics for possible aspiration pneumonitis / ESRD needing dialysis COnt HD per renal Nephrology consulted / IDDM (insulin dependent diabetes mellitus) Cont SS Coverage with T feeding diet / HTN (hypertension) Cont antihypertensives / GERD (gastroesophageal reflux disease) Cont PPI's /sacral ulcer stage -3, POA - wound crae following, need wound vac - Dr mckeon following /DVT prophylaxis, placed on heparin - Other chronic medical problems History of cardiac arrest Anoxic encephalopathy with chronic vegetative state History of Bradycardia arrhythmia, status post pacemaker hx of multiple cva hx of endocarditis Anemia of chronic disease History of mitral valves disease Disposition: pending placement. daughter doesnot want the same facility for discharge Brief History: 58-year-old female with a history of CVA status post trach and pain, end-stage renal disease on dialysis, chronic vegetative state presented from sleep with a chief complaint of hypoxia. Patient was Was recently discharged from this facility on Jul 29 after a stay of 11 days after being treated for multiple problems including Sepsis, aspiration pneumonia, Encephalopathy, and Resp failure, ESRD. Patient was sent from [place] again on 08/01/18 for Low O2 sats which Improved to 100 percent after proper suctioning. Daughter feels that her mother is not being suctioned properly. Hospitalist Physical exam: GENERAL: A phasic -[place] female lying on bed appeared to be in no discomfort. HEENT: Normocephalic. Atraumatic. No conjunctival congestion or icterus. Patient has moist mucous membranes. NECK: Supple. Trachea midline with trach in place CHEST/LUNGS: Coarse breath sounds auscultated bilaterally, breathing with T piece. No wheezes crackles or rhonchi. HEART/CARDIOVASCULAR: Regular in rate and rhythm. S1 and S2 positive. ABDOMEN: Abdomen is soft, nontender. Patient has normal bowel sounds. PEG tube in place SKIN: There is no rash. Warm and dry. NEURO: Follow minor command. Aphasic with a blank stare, moves extremities MUSCULOSKELETAL: No joint effusion or tenderness. EXTRIMITY: No edema, no cyanosis or clubbing. PSYCH: Unable to assess Subjective Date of service: 08/04/18 Interval history: Patient seen and examined. Medical records and medication list reviewed. No acute event overnight noted by the RN. Patient is aphasic but following commend Objective - Constitutional Vitals: Vital Signs - 12hr 08/04/18 08/04/18 08/04/18 04:01 05:06 07:41 Temperature 98.4 F Pulse Rate 79 Pulse Rate [ 95 H Anterior Throughout] Respiratory 14 Rate Respiratory 18 Rate [Anterior Throughout] Blood Pressure 133/55 O2 Sat by Pulse 100 100 Oximetry O2 Sat by Pulse 100 Oximetry [ Assessment] 08/04/18 08/04/18 08/04/18 07:51 08:23 08:24 Temperature 97.9 F Pulse Rate 75 Pulse Rate [ 74 Anterior Throughout] Respiratory 20 Rate Respiratory 18 Rate [Anterior Throughout] Blood Pressure 117/51 O2 Sat by Pulse 100 Oximetry O2 Sat by Pulse Oximetry [ Assessment] 08/04/18 08/04/18 08/04/18 10:00 12:09 13:07 Temperature 97.8 F Pulse Rate 74 Pulse Rate [ 73 Anterior Throughout] Respiratory 17 20 Rate Respiratory 18 Rate [Anterior Throughout] Blood Pressure 113/53 O2 Sat by Pulse 96 100 Oximetry O2 Sat by Pulse Oximetry [ Assessment] 08/04/18 13:28 Temperature Pulse Rate Pulse Rate [ 74 Anterior Throughout] Respiratory Rate Respiratory 16 Rate [Anterior Throughout] Blood Pressure O2 Sat by Pulse Oximetry O2 Sat by Pulse Oximetry [ Assessment] - Labs CBC & Chem 7: 08/03/18 07:43 08/03/18 07:43 Labs: Abnormal lab results 08/03/18 08/04/18 08/04/18 Range/Units 23:42 05:42 12:11 POC Glucose 139 H 151 H 193 H (70-105)
[2018-08-05] MEDS: HumaLOG SUB-Q SCH ×4 (00:23→18:13)
[2018-08-05] MEDS: IMODIUM PO SCH ×5 (00:23→23:37)
[2018-08-05] MEDS: DILAUDID IV PRN (04:53)
[2018-08-05] MEDS: HEPARIN SUB-Q SCH ×3 (05:01→22:23)
[2018-08-05] MEDS: DUONEB *Not for PRN Use IH SCH ×3 (08:02→22:14)
[2018-08-05] MEDS: RENVELA PO SCH ×3 (11:59→18:13)
[2018-08-05] MEDS: CORDARONE PO SCH (12:00)
[2018-08-05] MEDS: COREG PO SCH ×2 (12:00→22:22)
[2018-08-05] MEDS: NORVASC PO SCH (12:01)
[2018-08-05] MEDS: HALFPRIN EC PO SCH (12:01)
[2018-08-05] MEDS: LOPRESSOR PO SCH ×2 (12:01→22:23)
[2018-08-05] MEDS: PEPCID PO SCH (12:05)
[2018-08-05] MEDS: ZINC SULFATE PO SCH (12:05)
[2018-08-05] MEDS: SODIUM CHLORIDE FLUSH SYRINGE 10 ML IV SCH ×2 (12:06→22:24)
--- NOTE | 2018-08-05 12:29 | Progress Note ---
Assessment and Plan / Acute on chronic respiratory failure with hypoxia Sec to improper or delayed suctioning at [place] Daughter wants a different SNF Patient has been optimized to a large extent and discharged on Jul 29. Continue scheduled breathing treatments, t-tube suction cont Antibiotics for possible aspiration pneumonitis / ESRD needing dialysis COnt HD per renal Nephrology consulted / IDDM (insulin dependent diabetes mellitus) Cont SS Coverage with T feeding diet / HTN (hypertension) Cont antihypertensives / GERD (gastroesophageal reflux disease) Cont PPI's /sacral ulcer stage -3, POA - wound crae following, need wound vac - Dr mckeon following /DVT prophylaxis, placed on heparin - Other chronic medical problems History of cardiac arrest Anoxic encephalopathy with chronic vegetative state History of Bradycardia arrhythmia, status post pacemaker hx of multiple cva hx of endocarditis Anemia of chronic disease History of mitral valves disease Disposition: pending placement. daughter does not want the same facility for discharge. Brief History: 58-year-old female with a history of CVA status post trach and pain, end-stage renal disease on dialysis, chronic vegetative state presented from [facility] [place] with a chief complaint of hypoxia. Patient was Was recently discharged from this facility on Jul 29 after a stay of 11 days after being treated for multiple problems including Sepsis, aspiration pneumonia, Encephalopathy, and Resp failure, ESRD. Patient was sent from [place] again on 08/01/18 for Low O2 sats which Improved to 100 percent after proper suctioning. Daughter feels that her mother is not being suctioned properly. Hospitalist Physical exam: GENERAL: A phasic -[place] female lying on bed appeared to be in no discomfort. HEENT: Normocephalic. Atraumatic. No conjunctival congestion or icterus. Patient has moist mucous membranes. NECK: Supple. Trachea midline with trach in place CHEST/LUNGS: Coarse breath sounds auscultated bilaterally, breathing with T piece. No wheezes crackles or rhonchi. HEART/CARDIOVASCULAR: Regular in rate and rhythm. S1 and S2 positive. ABDOMEN: Abdomen is soft, nontender. Patient has normal bowel sounds. PEG tube in place SKIN: There is no rash. Warm and dry. NEURO: Follow minor command. Aphasic with a blank stare, moves extremities MUSCULOSKELETAL: No joint effusion or tenderness. EXTRIMITY: No edema, no cyanosis or clubbing. PSYCH: Unable to assess Subjective Date of service: 08/05/18 Interval history: Patient seen and examined. Medical records and medication list reviewed. No acute event overnight noted by the RN. Patient is aphasic but following commend discharge pending on placement Objective - Constitutional Vitals: Vital Signs - 12hr 08/05/18 08/05/18 08/05/18 03:58 04:00 08:02 Temperature 98.1 F 98.2 F Pulse Rate 71 69 Pulse Rate [ 85 Anterior Throughout] Respiratory 16 16 Rate Respiratory 18 Rate [Anterior Throughout] Blood Pressure 110/34 Blood Pressure 127/93 [Right] O2 Sat by Pulse 100 Oximetry O2 Sat by Pulse Oximetry [ Assessment] 08/05/18 08/05/18 08/05/18 08:17 08:22 08:23 Temperature Pulse Rate Pulse Rate [ 78 Anterior Throughout] Respiratory Rate Respiratory 20 Rate [Anterior Throughout] Blood Pressure Blood Pressure [Right] O2 Sat by Pulse 100 Oximetry O2 Sat by Pulse 100 Oximetry [ Assessment] 08/05/18 08/05/18 08/05/18 10:48 12:00 12:01 Temperature 98.6 F Pulse Rate 79 79 79 Pulse Rate [ Anterior Throughout] Respiratory 19 Rate Respiratory Rate [Anterior Throughout] Blood Pressure 104/49 104/49 Blood Pressure 104/49 [Right] O2 Sat by Pulse Oximetry O2 Sat by Pulse Oximetry [ Assessment] - Labs CBC & Chem 7: 08/06/18 10:25 08/06/18 10:25 Labs: Abnormal lab results 08/04/18 08/04/18 08/04/18 Range/Units 12:11 17:12 20:55 POC Glucose 193 H 137 H 175 H (70-105) 08/04/18 08/05/18 08/05/18 Range/Units 23:23 05:55 12:03 POC Glucose 165 H 135 H 158 H (70-105)
--- NOTE | 2018-08-05 14:42 | Progress Note ---
Assessment and Plan Acute on Chronic hypoxemic respiratory failure Acute on Chronic Encephalopathy (Toxic / Metabolic / Anoxic) Diabetes type II End-stage renal disease, on dialysis Wednesday, Wednesday and Wednesday Cardiomyopathy (S/P AICD implantation) Anemia of chronic disease Leukocytosis Adult failure to thrive s/p trachesotomy Oropharyngeal dysphagia (s/p PEG) S/p PPM for sinus arrest s/p Mitral valve repair h/o Mitral Valve SBE Atrial Fibrillation (Paroxysmal) - continue seroquel for delirium / anxiety - continue RTC T-piece as tolerated - continue supportive HD/UF for toxin and volume clearance - PT/OT as tolerated - continue VTE and Stress ulcer prophylaxis - continue enteric feedings as tolerated - continue accucheck with glycemic control. Target blood glucose of 140-180mg/dL - continue to monitor closely for hypoglycemia - continue bronchodilators with pulmonary hygiene per RT - Wean supplemental oxygen for O2 sats > 90% - CXR and ABG as indicated - continue other care per attending / other consultants .... re-evaluate in am & prn Subjective Date of service: 08/05/18 Principal diagnosis: Ac on Ch hypoxemic Resp failure; Diabetes type II; ESRD on dialysis (M/W/F) Interval history: Patient is seen today for: Acute on Chronic hypoxemic respiratory failure; Acute Encephalopathy (Toxic / Metabolic / Anoxic); Diabetes type II; End-stage renal disease (M/W/F) Seen and examined at bedside; 24hour events reviewed; nursing and respiratory care staff consulted; no adverse overnight events reported to me; resting peacefully in bed; still with delirium; no N/V/F/C; no falls; remains on t- piece; secretions well controlled Objective Vital Signs - 12hr 08/05/18 08/05/18 08/05/18 03:58 04:00 08:02 Temperature 98.1 F 98.2 F Pulse Rate 71 69 Pulse Rate [ 85 Anterior Throughout] Respiratory 16 16 Rate Respiratory 18 Rate [Anterior Throughout] Blood Pressure 110/34 Blood Pressure 127/93 [Right] O2 Sat by Pulse 100 Oximetry O2 Sat by Pulse Oximetry [ Assessment] 08/05/18 08/05/18 08/05/18 08:17 08:22 08:23 Temperature Pulse Rate Pulse Rate [ 78 Anterior Throughout] Respiratory Rate Respiratory 20 Rate [Anterior Throughout] Blood Pressure Blood Pressure [Right] O2 Sat by Pulse 100 Oximetry O2 Sat by Pulse 100 Oximetry [ Assessment] 08/05/18 08/05/18 08/05/18 10:48 12:00 12:01 Temperature 98.6 F Pulse Rate 79 79 79 Pulse Rate [ Anterior Throughout] Respiratory 19 Rate Respiratory Rate [Anterior Throughout] Blood Pressure 104/49 104/49 Blood Pressure 104/49 [Right] O2 Sat by Pulse Oximetry O2 Sat by Pulse Oximetry [ Assessment] Constitutional: alert, appears uncomfortable, other (middle aged AAF, normocephalic with mildly increased respiratory effort on t-piece) Eyes: non-icteric ENT: oropharynx moist Neck: supple, no lymphadenopathy, no JVD, other (+ midline tracheostomy tube) Effort: mildly labored Ascultation: Bilateral: diminished breath sounds, rhonchi Percussion: Bilateral: not dull Cardiovascular: regular rate and rhythm, murmur noted (systolic) Gastrointestinal: normoactive bowel sounds, soft, non-tender, non-distended Integumentary: rash Extremities: no cyanosis, no edema, pulses normal, no ischemia or petechiae Neurologic: non-focal exam (grossly), pupils equal and round, CN II-XII normal, motor strength normal and, other (delirium vs dementia element) Psychiatric: anxious, other (delirium vs dementia element) CBC and BMP: 08/06/18 10:25 08/06/18 10:25 ABG, PT/INR, D-dimer: ABG POC ABG pH 7.403 (7.35-7.45) 08/02/18 09:07 POC ABG pCO2 43.2 (35-45) 08/02/18 09:07 POC ABG pO2 125 (80-105) H 08/02/18 09:07 POC ABG HCO3 26.9 08/02/18 09:07 POC ABG Total CO2 28 08/02/18 09:07 POC ABG O2 Sat 99 08/02/18 09:07 PT/INR, D-dimer PT 14.4 Sec. (12.2-14.9) 08/01/18 11:30 INR 1.05 (0.87-1.13) 08/01/18 11:30 Abnormal lab findings: Abnormal Labs 02/18/19 02/18/19 02/18/19 11:30 11:30 11:30 WBC 13.7 H RBC 2.81 L Hgb 8.9 L Hct 27.4 L MCV 98 H MCH MCHC RDW 16.0 H Lymph % (Auto) 10.1 L Seg Neutrophils % 84.3 H Seg Neuts % (Manual) Lymphocytes % (Manual) Seg Neutrophils # 11.6 H Seg Neutrophils # Man Lymphocytes # (Manual) APTT 23.5 L POC ABG pCO2 POC ABG pO2 Sodium 133 L Chloride 89.8 L BUN 78 H Creatinine 8.7 H D Glucose 177 H POC Glucose Magnesium ALT Albumin 08/01/18 08/01/18 08/02/18 18:38 19:56 09:07 WBC RBC Hgb Hct MCV MCH MCHC RDW Lymph % (Auto) Seg Neutrophils % Seg Neuts % (Manual) Lymphocytes % (Manual) Seg Neutrophils # Seg Neutrophils # Man Lymphocytes # (Manual) APTT POC ABG pCO2 48.2 H POC ABG pO2 146 H 125 H Sodium Chloride BUN Creatinine Glucose POC Glucose Magnesium 2.80 H ALT Albumin 08/02/18 08/02/18 08/02/18 16:22 16:22 17:21 WBC RBC 2.42 L Hgb 8.1 L Hct 22.8 L MCV MCH 34 H MCHC 36 H RDW 15.7 H Lymph % (Auto) Seg Neutrophils % Seg Neuts % (Manual) 94.0 H Lymphocytes % (Manual) 6.0 L Seg Neutrophils # Seg Neutrophils # Man 9.9 H Lymphocytes # (Manual) 0.6 L APTT POC ABG pCO2 POC ABG pO2 Sodium 134 L Chloride 90.7 L BUN 38 H Creatinine 4.8 H Glucose 175 H POC Glucose 191 H Magnesium ALT < 5 L Albumin 2.9 L 08/03/18 08/03/18 08/03/18 05:19 07:43 07:43 WBC RBC 2.67 L Hgb 8.3 L Hct 24.9 L MCV MCH MCHC RDW 15.6 H Lymph % (Auto) Seg Neutrophils % Seg Neuts % (Manual) Lymphocytes % (Manual) Seg Neutrophils # Seg Neutrophils # Man Lymphocytes # (Manual) APTT POC ABG pCO2 POC ABG pO2 Sodium 134 L Chloride 89.7 L BUN 52 H Creatinine 5.9 H Glucose 180 H POC Glucose 212 H Magnesium ALT Albumin 08/03/18 08/03/18 08/04/18 12:32 23:42 05:42 WBC RBC Hgb Hct MCV MCH MCHC RDW Lymph % (Auto) Seg Neutrophils % Seg Neuts % (Manual) Lymphocytes % (Manual) Seg Neutrophils # Seg Neutrophils # Man Lymphocytes # (Manual) APTT POC ABG pCO2 POC ABG pO2 Sodium Chloride BUN Creatinine Glucose POC Glucose 223 H 139 H 151 H Magnesium ALT Albumin 08/04/18 08/04/18 08/04/18 12:11 17:12 20:55 WBC RBC Hgb Hct MCV MCH MCHC RDW Lymph % (Auto) Seg Neutrophils % Seg Neuts % (Manual) Lymphocytes % (Manual) Seg Neutrophils # Seg Neutrophils # Man Lymphocytes # (Manual) APTT POC ABG pCO2 POC ABG pO2 Sodium Chloride BUN Creatinine Glucose POC Glucose 193 H 137 H 175 H Magnesium ALT Albumin 08/04/18 08/05/18 08/05/18 23:23 05:55 12:03 WBC RBC Hgb Hct MCV MCH MCHC RDW Lymph % (Auto) Seg Neutrophils % Seg Neuts % (Manual) Lymphocytes % (Manual) Seg Neutrophils # Seg Neutrophils # Man Lymphocytes # (Manual) APTT POC ABG pCO2 POC ABG pO2 Sodium Chloride BUN Creatinine Glucose POC Glucose 165 H 135 H 158 H Magnesium ALT Albumin
--- NOTE | 2018-08-05 15:01 | Progress Note ---
Assessment and Plan 1. ESRD: Continue hemodialysis three times a week, MWF schedule. 2. Respiratory failure: Trached, on T-piece. 3. Anemia: Epogen with HD. 4. H/o Cardiac arrest. 5. H/o CVA. 6. Anoxic encephalopathy. Await placement. Subjective Date of service: 08/05/18 Principal diagnosis: Ac on Ch hypoxemic Resp failure; Diabetes type II; ESRD on dialysis (M/W/F) Interval history: Patient was seen and examined at the bedside. Objective - Vital Signs Vital signs: Vital Signs - 12hr 08/05/18 08/05/18 08/05/18 03:58 04:00 08:02 Temperature 98.1 F 98.2 F Pulse Rate 71 69 Pulse Rate [ 85 Anterior Throughout] Pulse Rate [ Apical] Pulse Rate [ Left Dorsalis Pedis] Pulse Rate [ Left Radial] Pulse Rate [ Right Dorsalis Pedis] Pulse Rate [ Right Radial] Respiratory 16 16 Rate Respiratory 18 Rate [Anterior Throughout] Blood Pressure 110/34 Blood Pressure 127/93 [Right] O2 Sat by Pulse 100 Oximetry O2 Sat by Pulse Oximetry [ Assessment] 08/05/18 08/05/18 08/05/18 08:17 08:22 08:23 Temperature Pulse Rate Pulse Rate [ 78 Anterior Throughout] Pulse Rate [ Apical] Pulse Rate [ Left Dorsalis Pedis] Pulse Rate [ Left Radial] Pulse Rate [ Right Dorsalis Pedis] Pulse Rate [ Right Radial] Respiratory Rate Respiratory 20 Rate [Anterior Throughout] Blood Pressure Blood Pressure [Right] O2 Sat by Pulse 100 Oximetry O2 Sat by Pulse 100 Oximetry [ Assessment] 08/05/18 08/05/18 08/05/18 10:00 10:48 12:00 Temperature 98.6 F Pulse Rate 79 79 Pulse Rate [ Anterior Throughout] Pulse Rate [ 79 Apical] Pulse Rate [ 79 Left Dorsalis Pedis] Pulse Rate [ 79 Left Radial] Pulse Rate [ 79 Right Dorsalis Pedis] Pulse Rate [ 79 Right Radial] Respiratory 22 19 Rate Respiratory Rate [Anterior Throughout] Blood Pressure 104/49 Blood Pressure 104/49 [Right] O2 Sat by Pulse 98 Oximetry O2 Sat by Pulse Oximetry [ Assessment] 08/05/18 08/05/18 12:01 14:52 Temperature Pulse Rate 79 Pulse Rate [ 83 Anterior Throughout] Pulse Rate [ Apical] Pulse Rate [ Left Dorsalis Pedis] Pulse Rate [ Left Radial] Pulse Rate [ Right Dorsalis Pedis] Pulse Rate [ Right Radial] Respiratory Rate Respiratory 20 Rate [Anterior Throughout] Blood Pressure 104/49 Blood Pressure [Right] O2 Sat by Pulse Oximetry O2 Sat by Pulse Oximetry [ Assessment] - General Appearance General appearance: well-developed, appears stated age, other (not in distress) EENT: ATNC Neck: other (Trached, on T-piece) Respiratory: Present: Clear to Ascultation Cardiology: regular, S1S2, no murmurs Gastrointestinal: normoactive bowel sounds, no tenderness, no distended, other (PEG tube noted) Neurologic: other (able to move UEs) Musculoskeletal: other (no edema, left arm AVF / AVG) - Lab 08/03/18 07:43 08/03/18 07:43 Most recent lab results Calcium 8.6 mg/dL (8.4-10.2) 08/03/18 07:43 Magnesium 2.80 mg/dL (1.7-2.3) H 08/01/18 19:56 Medications & Allergies - Medications Allergies/Adverse Reactions: Allergies ondansetron Allergy (Verified 08/01/18 11:00) Anaphylaxis sulfamethoxazole [From Bactrim] Allergy (Verified 08/01/18 11:00) Anaphylaxis trimethoprim [From Bactrim] Allergy (Verified 08/01/18 11:00) Anaphylaxis vancomycin Allergy (Verified 08/01/18 11:00) Anaphylaxis Home Medications: Home Medications Medication Instructions Recorded Confirmed Last Taken Type ALBUTEROL NEB's [Proventil 0.083% 3 ml IH Q4HR 07/26/18 08/01/18 Unknown History NEBS] Metoprolol [Lopressor TAB] 25 mg PO BID tablet 07/29/18 08/01/18 Unknown Rx amLODIPine [Norvasc] 5 mg PO QDAY tablet 07/29/18 08/01/18 Unknown Rx Amiodarone HCl [Pacerone] 200 mg PO DAILY 08/01/18 08/01/18 Unknown History Aspirin [Adult Aspirin] 81 mg PO DAILY 08/01/18 08/01/18 Unknown History Carvedilol [Coreg] 12.5 mg PO BID 08/01/18 08/01/18 Unknown History Famotidine 20 mg PO DAILY 08/01/18 08/01/18 Unknown History Gabapentin [Gralise] 30 mg PO QHS 08/01/18 08/01/18 Unknown History Lispro Insulin [Humalog] 0 unit SQ TID 08/01/18 08/01/18 Unknown History Loperamide [Imodium] 2 mg PO Q6H 08/01/18 08/01/18 Unknown History Sevelamer Carbonate [Renvela] 800 mg PO TIDWM 08/01/18 08/01/18 Unknown History Zinc Sulfate 220 mg PO DAILY 08/01/18 08/01/18 Unknown History Active Medications: Generic Name Dose Route Start Last Admin Trade Name Freq PRN Reason Stop Dose Admin Acetaminophen 650 mg 08/01/18 19:44 Tylenol PO Q4H PRN Pain MILD(1-3)/Fever >100.5/CASAREZ Albuterol/Ipratropium 1 ampul 08/02/18 14:00 08/05/18 14:52 Duoneb *Not For Prn Use* IH 1 ampul TIDRT SERENITY Administration Amiodarone HCl 200 mg 08/01/18 22:00 08/05/18 12:00 Cordarone PO Not Given DAILY SERENITY Amlodipine Besylate 5 mg 08/01/18 22:00 08/05/18 12:01 Norvasc PO Not Given QDAY SERENITY Lipase/Protease/Amylase 1 each 08/04/18 10:24 Pancreaze 10,500 Unit FEEDTUBE PRN PRN For Clogged Feeding Tube Aspirin 81 mg 08/01/18 22:00 08/05/18 12:01 Halfprin Ec PO Not Given DAILY SERENITY Carvedilol 12.5 mg 08/01/18 22:00 08/05/18 12:00 Coreg PO Not Given BID SERENITY Epoetin Beka 20,000 unit 08/02/18 10:41 08/02/18 12:20 Procrit SUB-Q 20,000 unit ANJANA PRN Administration hemodialysis Famotidine 20 mg 08/01/18 22:00 08/05/18 12:05 Pepcid PO 20 mg DAILY SERENITY Administration Heparin Sodium (Porcine) 5,000 unit 08/03/18 14:00 08/05/18 13:28 Heparin SUB-Q 5,000 unit Q8HR SERENITY Administration Hydromorphone HCl 0.5 mg 08/01/18 19:45 08/05/18 04:53 Dilaudid IV 0.5 mg Q3H PRN Administration Pain , Severe (7-10) Sodium Chloride 100 mls @ 999 mls/hr 08/02/18 09:40 Nacl 0.9% IV ANJANA PRN Hypotension Insulin Human Lispro 0 unit 08/02/18 08:00 08/05/18 12:08 Humalog SUB-Q 2 unit Q6HR SERENITY Administration Protocol Loperamide HCl 2 mg 08/01/18 22:00 08/05/18 12:07 Imodium PO 2 mg Q6HR SERENITY Administration Metoprolol Tartrate 25 mg 08/01/18 22:00 08/05/18 12:01 Lopressor PO Not Given BID SERENITY Quetiapine Fumarate 50 mg 08/05/18 22:00 Seroquel PO QHS SERENITY Quetiapine Fumarate 25 mg 08/05/18 22:00 Seroquel PO BID SERENITY Sevelamer Carbonate 800 mg 08/02/18 08:00 08/05/18 12:04 Renvela PO 800 mg TIDWM SERENITY Administration Simple Syrup 15 ml 08/04/18 10:24 Simple Syrup FEEDTUBE PRN PRN Hypoglycemia Simple Syrup 30 ml 08/04/18 10:24 Simple Syrup FEEDTUBE PRN PRN Hypoglycemia Sodium Bicarbonate 325 mg 08/04/18 10:24 Sodium Bicarbonate FEEDTUBE PRN PRN For Clogged Feeding Tube Sodium Chloride 10 ml 08/01/18 22:00 08/05/18 12:06 Sodium Chloride Flush Syringe 10 Ml IV 10 ml BID SERENITY Administration Sodium Chloride 10 ml 08/01/18 19:44 Sodium Chloride Flush Syringe 10 Ml IV PRN PRN LINE FLUSH Zinc Sulfate 220 mg 08/02/18 10:00 08/05/18 12:05 Zinc Sulfate PO 220 mg DAILY SERENITY Administration
[2018-08-05] MEDS ORDERED: NACL 0.9% 1000 ML 1,000 ML ONE (15:48)
[2018-08-06] MEDS: HumaLOG SUB-Q SCH ×4 (00:06→17:52)
[2018-08-06] MEDS: IMODIUM PO SCH ×3 (05:02→17:00)
[2018-08-06] MEDS: HEPARIN SUB-Q SCH ×3 (05:02→22:16)
[2018-08-06] MEDS: DILAUDID IV PRN ×2 (06:02→10:34)
[2018-08-06] MEDS: DUONEB *Not for PRN Use IH SCH ×3 (10:06→21:11)
[2018-08-06] MEDS: RENVELA PO SCH ×3 (10:23→17:00)
[2018-08-06] MEDS: NORVASC PO SCH (10:23)
[2018-08-06] MEDS: LOPRESSOR PO SCH ×2 (10:23→22:16)
[2018-08-06] MEDS: HALFPRIN EC PO SCH (10:23)
[2018-08-06] MEDS: CORDARONE PO SCH (10:23)
[2018-08-06] MEDS: PEPCID PO SCH (10:23)
[2018-08-06] MEDS: ZINC SULFATE PO SCH (10:23)
[2018-08-06] MEDS: SODIUM CHLORIDE FLUSH SYRINGE 10 ML IV SCH ×2 (10:23→22:17)
[2018-08-06 10:59] LABS: Hematocrit 24.9 % (30.3-42.9); Hemoglobin 8.2 gm/dl (10.1-14.3); Mean Corpuscular HGB Conc 33 % (30-34); Mean Corpuscular Volume 96 fl (79-97); Red Blood Count 2.61 M/mm3 (3.65-5.03); Red Cell Distribution Width 15.8 % (13.2-15.2)
[2018-08-06 11:07] LABS: Platelet Count 283 K/mm3 (140-440)
[2018-08-06 11:19] LABS: Calcium 8.6 mg/dL (8.4-10.2)
--- NOTE | 2018-08-06 12:07 | Progress Note ---
Assessment and Plan - Patient Problems (1) Pressure ulcer of sacral region, stage 3 Current Visit: Yes Status: Acute Plan to address problem: 1) Pt can be discharged from my perspective. 2) Continue off loading 3) I will follow her weekly while she is in house. 4) She can f[facility]u in the [facility] after discharge. Subjective Date of service: 08/06/18 Patient Reports: Positive: no new complaints Objective Vital Signs - 12hr 08/06/18 08/06/18 08/06/18 00:10 04:32 08:00 Temperature 98.4 F Pulse Rate 82 Pulse Rate [ 82 Posterior Bilateral Throughout] Respiratory 18 Rate Respiratory 16 Rate [Posterior Bilateral Throughout] Blood Pressure 150/48 O2 Sat by Pulse 94 Oximetry O2 Sat by Pulse 100 98 Oximetry [ Assessment] 08/06/18 08/06/18 08/06/18 08:20 08:21 10:00 Temperature Pulse Rate 86 Pulse Rate [ Posterior Bilateral Throughout] Respiratory 17 Rate Respiratory Rate [Posterior Bilateral Throughout] Blood Pressure 90/42 O2 Sat by Pulse 96 99 98 Oximetry O2 Sat by Pulse Oximetry [ Assessment] - Integumentary other (Wound vac is in place.) - Labs 08/06/18 10:25 08/06/18 10:25 Diabetes panel 08/06/18 Range/Units 10:25 Sodium 136 L (137-145) mmol/L Potassium 3.3 L D (3.6-5.0) mmol/L Chloride 93.2 L (98-107) mmol/L Carbon Dioxide 28 (22-30) mmol/L BUN 32 H (7-17) mg/dL Creatinine 4.5 H (0.7-1.2) mg/dL Glucose 134 H (65-100) mg/dL Calcium 8.6 (8.4-10.2) mg/dL Calcium panel 08/06/18 Range/Units 10:25 Calcium 8.6 (8.4-10.2) mg/dL Pituitary panel 08/06/18 Range/Units 10:25 Sodium 136 L (137-145) mmol/L Potassium 3.3 L D (3.6-5.0) mmol/L Chloride 93.2 L (98-107) mmol/L Carbon Dioxide 28 (22-30) mmol/L BUN 32 H (7-17) mg/dL Creatinine 4.5 H (0.7-1.2) mg/dL Glucose 134 H (65-100) mg/dL Calcium 8.6 (8.4-10.2) mg/dL Adrenal panel 08/06/18 Range/Units 10:25 Sodium 136 L (137-145) mmol/L Potassium 3.3 L D (3.6-5.0) mmol/L Chloride 93.2 L (98-107) mmol/L Carbon Dioxide 28 (22-30) mmol/L BUN 32 H (7-17) mg/dL Creatinine 4.5 H (0.7-1.2) mg/dL Glucose 134 H (65-100) mg/dL Calcium 8.6 (8.4-10.2) mg/dL
--- NOTE | 2018-08-06 14:14 | Progress Note ---
Assessment and Plan Acute on Chronic hypoxemic respiratory failure Acute on Chronic Encephalopathy (Toxic / Metabolic / Anoxic) Diabetes type II End-stage renal disease, on dialysis Wednesday, Wednesday and Wednesday Cardiomyopathy (S/P AICD implantation) Anemia of chronic disease Leukocytosis Adult failure to thrive s/p trachesotomy Oropharyngeal dysphagia (s/p PEG) S/p PPM for sinus arrest s/p Mitral valve repair h/o Mitral Valve SBE Atrial Fibrillation (Paroxysmal) - continue seroquel for delirium / anxiety - continue RTC T-piece as tolerated - continue supportive HD/UF for toxin and volume clearance - PT/OT as tolerated - continue VTE and Stress ulcer prophylaxis - continue enteric feedings as tolerated - continue accucheck with glycemic control. Target blood glucose of 140-180mg/dL - continue to monitor closely for hypoglycemia - continue bronchodilators with pulmonary hygiene per RT - Wean supplemental oxygen for O2 sats > 90% - CXR and ABG as indicated - continue other care per attending / other consultants .... discharge planning ongoing concurrently (family asking for different facility) .... re-evaluate in am & prn Subjective Date of service: 08/06/18 Principal diagnosis: Ac on Ch hypoxemic Resp failure; Diabetes type II; ESRD on dialysis (M/W/F) Interval history: Patient is seen today for: Acute on Chronic hypoxemic respiratory failure; Acute Encephalopathy (Toxic / Metabolic / Anoxic); Diabetes type II; End-stage renal disease (M/W/F) Seen and examined at bedside; 24hour events reviewed; nursing and respiratory care staff consulted; no adverse overnight events reported to me; resting peacefully in bed; remains on T-piece; discharge planning ongoing; encephalopathy / delirium is persistent Objective Vital Signs - 12hr 08/06/18 08/06/18 08/06/18 04:32 08:00 08:10 Temperature 98.4 F Pulse Rate 82 Pulse Rate [ 82 83 Posterior Bilateral Throughout] Respiratory 18 Rate Respiratory 16 16 Rate [Posterior Bilateral Throughout] Blood Pressure 150/48 O2 Sat by Pulse 94 Oximetry O2 Sat by Pulse 98 Oximetry [ Assessment] 08/06/18 08/06/18 08/06/18 08:20 08:21 10:00 Temperature Pulse Rate 86 Pulse Rate [ Posterior Bilateral Throughout] Respiratory 17 Rate Respiratory Rate [Posterior Bilateral Throughout] Blood Pressure 90/42 O2 Sat by Pulse 96 99 98 Oximetry O2 Sat by Pulse Oximetry [ Assessment] 08/06/18 08/06/18 14:00 14:10 Temperature Pulse Rate Pulse Rate [ 83 84 Posterior Bilateral Throughout] Respiratory Rate Respiratory 16 16 Rate [Posterior Bilateral Throughout] Blood Pressure O2 Sat by Pulse Oximetry O2 Sat by Pulse Oximetry [ Assessment] Constitutional: alert, appears uncomfortable, other (middle aged AAF, normo cephalic with mildly increased respiratory effort on t-piece) Eyes: non-icteric ENT: oropharynx moist Neck: supple, no lymphadenopathy, no JVD, other (+ midline tracheostomy tube) Effort: mildly labored Ascultation: Bilateral: diminished breath sounds, rhonchi Percussion: Bilateral: not dull Cardiovascular: regular rate and rhythm, murmur noted (systolic) Gastrointestinal: normoactive bowel sounds, soft, non-tender, non-distended Integumentary: rash Extremities: no cyanosis, no edema, pulses normal, no ischemia or petechiae Neurologic: non-focal exam (grossly), pupils equal and round, CN II-XII normal, motor strength normal and, other (delirium vs dementia element) Psychiatric: anxious, other (delirium vs dementia element) CBC and BMP: 08/06/18 10:25 08/06/18 10:25 ABG, PT/INR, D-dimer: ABG POC ABG pH 7.403 (7.35-7.45) 08/02/18 09:07 POC ABG pCO2 43.2 (35-45) 08/02/18 09:07 POC ABG pO2 125 (80-105) H 08/02/18 09:07 POC ABG HCO3 26.9 08/02/18 09:07 POC ABG Total CO2 28 08/02/18 09:07 POC ABG O2 Sat 99 08/02/18 09:07 PT/INR, D-dimer PT 14.4 Sec. (12.2-14.9) 08/01/18 11:30 INR 1.05 (0.87-1.13) 08/01/18 11:30 Abnormal lab findings: Abnormal Labs 08/01/18 08/01/18 08/01/18 11:30 11:30 11:30 WBC 13.7 H RBC 2.81 L Hgb 8.9 L Hct 27.4 L MCV 98 H MCH MCHC RDW 16.0 H Lymph % (Auto) 10.1 L Seg Neutrophils % 84.3 H Seg Neuts % (Manual) Lymphocytes % (Manual) Seg Neutrophils # 11.6 H Seg Neutrophils # Man Lymphocytes # (Manual) APTT 23.5 L POC ABG pCO2 POC ABG pO2 Sodium 133 L Potassium Chloride 89.8 L BUN 78 H Creatinine 8.7 H D Glucose 177 H POC Glucose Magnesium ALT Albumin 08/01/18 08/01/18 08/02/18 18:38 19:56 09:07 WBC RBC Hgb Hct MCV MCH MCHC RDW Lymph % (Auto) Seg Neutrophils % Seg Neuts % (Manual) Lymphocytes % (Manual) Seg Neutrophils # Seg Neutrophils # Man Lymphocytes # (Manual) APTT POC ABG pCO2 48.2 H POC ABG pO2 146 H 125 H Sodium Potassium Chloride BUN Creatinine Glucose POC Glucose Magnesium 2.80 H ALT Albumin 08/02/18 08/02/18 08/02/18 16:22 16:22 17:21 WBC RBC 2.42 L Hgb 8.1 L Hct 22.8 L MCV MCH 34 H MCHC 36 H RDW 15.7 H Lymph % (Auto) Seg Neutrophils % Seg Neuts % (Manual) 94.0 H Lymphocytes % (Manual) 6.0 L Seg Neutrophils # Seg Neutrophils # Man 9.9 H Lymphocytes # (Manual) 0.6 L APTT POC ABG pCO2 POC ABG pO2 Sodium 134 L Potassium Chloride 90.7 L BUN 38 H Creatinine 4.8 H Glucose 175 H POC Glucose 191 H Magnesium ALT < 5 L Albumin 2.9 L 08/03/18 08/03/18 08/03/18 05:19 07:43 07:43 WBC RBC 2.67 L Hgb 8.3 L Hct 24.9 L MCV MCH MCHC RDW 15.6 H Lymph % (Auto) Seg Neutrophils % Seg Neuts % (Manual) Lymphocytes % (Manual) Seg Neutrophils # Seg Neutrophils # Man Lymphocytes # (Manual) APTT POC ABG pCO2 POC ABG pO2 Sodium 134 L Potassium Chloride 89.7 L BUN 52 H Creatinine 5.9 H Glucose 180 H POC Glucose 212 H Magnesium ALT Albumin 08/03/18 08/03/18 08/04/18 12:32 23:42 05:42 WBC RBC Hgb Hct MCV MCH MCHC RDW Lymph % (Auto) Seg Neutrophils % Seg Neuts % (Manual) Lymphocytes % (Manual) Seg Neutrophils # Seg Neutrophils # Man Lymphocytes # (Manual) APTT POC ABG pCO2 POC ABG pO2 Sodium Potassium Chloride BUN Creatinine Glucose POC Glucose 223 H 139 H 151 H Magnesium ALT Albumin 08/04/18 08/04/18 08/04/18 12:11 17:12 20:55 WBC RBC Hgb Hct MCV MCH MCHC RDW Lymph % (Auto) Seg Neutrophils % Seg Neuts % (Manual) Lymphocytes % (Manual) Seg Neutrophils # Seg Neutrophils # Man Lymphocytes # (Manual) APTT POC ABG pCO2 POC ABG pO2 Sodium Potassium Chloride BUN Creatinine Glucose POC Glucose 193 H 137 H 175 H Magnesium ALT Albumin 08/04/18 08/05/18 08/05/18 23:23 05:55 12:03 WBC RBC Hgb Hct MCV MCH MCHC RDW Lymph % (Auto) Seg Neutrophils % Seg Neuts % (Manual) Lymphocytes % (Manual) Seg Neutrophils # Seg Neutrophils # Man Lymphocytes # (Manual) APTT POC ABG pCO2 POC ABG pO2 Sodium Potassium Chloride BUN Creatinine Glucose POC Glucose 165 H 135 H 158 H Magnesium ALT Albumin 08/05/18 08/06/18 08/06/18 23:42 06:05 10:25 WBC 11.8 H RBC 2.61 L Hgb 8.2 L Hct 24.9 L MCV MCH MCHC RDW 15.8 H Lymph % (Auto) Seg Neutrophils % Seg Neuts % (Manual) Lymphocytes % (Manual) Seg Neutrophils # Seg Neutrophils # Man Lymphocytes # (Manual) APTT POC ABG pCO2 POC ABG pO2 Sodium Potassium Chloride BUN Creatinine Glucose POC Glucose 120 H 196 H Magnesium ALT Albumin 08/06/18 08/06/18 10:25 12:31 WBC RBC Hgb Hct MCV MCH MCHC RDW Lymph % (Auto) Seg Neutrophils % Seg Neuts % (Manual) Lymphocytes % (Manual) Seg Neutrophils # Seg Neutrophils # Man Lymphocytes # (Manual) APTT POC ABG pCO2 POC ABG pO2 Sodium 136 L Potassium 3.3 L D Chloride 93.2 L BUN 32 H Creatinine 4.5 H Glucose 134 H POC Glucose 184 H Magnesium ALT Albumin
[2018-08-06] MEDS ORDERED: PERCOCET 5/325 PO PRN (14:32)
--- NOTE | 2018-08-06 14:45 | Progress Note ---
Assessment and Plan 1. ESRD: Continue hemodialysis three times a week, MWF schedule. 2. Respiratory failure: Trached, on T-piece. 3. Anemia: Epogen with HD. 4. H/o Cardiac arrest. 5. H/o CVA. 6. Anoxic encephalopathy. Await placement. Subjective Date of service: 08/06/18 Principal diagnosis: Ac on Ch hypoxemic Resp failure; Diabetes type II; ESRD on dialysis (M/W/F) Interval history: Patient was seen and examined at the bedside. Objective - Vital Signs Vital signs: Vital Signs - 12hr 08/06/18 08/06/18 08/06/18 04:32 08:00 08:10 Temperature 98.4 F Pulse Rate 82 Pulse Rate [ 82 83 Posterior Bilateral Throughout] Respiratory 18 Rate Respiratory 16 16 Rate [Posterior Bilateral Throughout] Blood Pressure 150/48 O2 Sat by Pulse 94 Oximetry O2 Sat by Pulse 98 Oximetry [ Assessment] 08/06/18 08/06/18 08/06/18 08:20 08:21 10:00 Temperature Pulse Rate 86 Pulse Rate [ Posterior Bilateral Throughout] Respiratory 17 Rate Respiratory Rate [Posterior Bilateral Throughout] Blood Pressure 90/42 O2 Sat by Pulse 96 99 98 Oximetry O2 Sat by Pulse Oximetry [ Assessment] 08/06/18 08/06/18 14:00 14:10 Temperature Pulse Rate Pulse Rate [ 83 84 Posterior Bilateral Throughout] Respiratory Rate Respiratory 16 16 Rate [Posterior Bilateral Throughout] Blood Pressure O2 Sat by Pulse Oximetry O2 Sat by Pulse Oximetry [ Assessment] - General Appearance General appearance: well-developed, appears stated age, other (not in distress) EENT: ATNC, PERRL Neck: other (Trached on T-piece) Respiratory: Present: Clear to Ascultation Cardiology: regular, S1S2, no murmurs Gastrointestinal: normoactive bowel sounds, no tenderness, no distended, other (PEG tube noted) Integumentary: no rash Neurologic: other (opens eyes, non-verbal) Musculoskeletal: other (left arm AVF / AVG) - Lab 08/06/18 10:25 08/06/18 10:25 Most recent lab results Calcium 8.6 mg/dL (8.4-10.2) 08/06/18 10:25 Magnesium 2.80 mg/dL (1.7-2.3) H 08/01/18 19:56 Medications & Allergies - Medications Allergies/Adverse Reactions: Allergies ondansetron Allergy (Verified 08/01/18 11:00) Anaphylaxis sulfamethoxazole [From Bactrim] Allergy (Verified 08/01/18 11:00) Anaphylaxis trimethoprim [From Bactrim] Allergy (Verified 08/01/18 11:00) Anaphylaxis vancomycin Allergy (Verified 08/01/18 11:00) Anaphylaxis Home Medications: Home Medications Medication Instructions Recorded Confirmed Last Taken Type ALBUTEROL NEB's [Proventil 0.083% 3 ml IH Q4HR 07/26/18 08/01/18 Unknown History NEBS] Metoprolol [Lopressor TAB] 25 mg PO BID tablet 07/29/18 08/01/18 Unknown Rx amLODIPine [Norvasc] 5 mg PO QDAY tablet 07/29/18 08/01/18 Unknown Rx Amiodarone HCl [Pacerone] 200 mg PO DAILY 08/01/18 08/01/18 Unknown History Aspirin [Adult Aspirin] 81 mg PO DAILY 08/01/18 08/01/18 Unknown History Carvedilol [Coreg] 12.5 mg PO BID 08/01/18 08/01/18 Unknown History Famotidine 20 mg PO DAILY 08/01/18 08/01/18 Unknown History Gabapentin [Gralise] 30 mg PO QHS 08/01/18 08/01/18 Unknown History Lispro Insulin [Humalog] 0 unit SQ TID 08/01/18 08/01/18 Unknown History Loperamide [Imodium] 2 mg PO Q6H 08/01/18 08/01/18 Unknown History Sevelamer Carbonate [Renvela] 800 mg PO TIDWM 08/01/18 08/01/18 Unknown History Zinc Sulfate 220 mg PO DAILY 08/01/18 08/01/18 Unknown History Active Medications: Generic Name Dose Route Start Last Admin Trade Name Freq PRN Reason Stop Dose Admin Acetaminophen 650 mg 08/01/18 19:44 Tylenol PO Q4H PRN Pain MILD(1-3)/Fever >100.5/CASAREZ Albuterol/Ipratropium 1 ampul 08/02/18 14:00 08/06/18 14:07 Duoneb *Not For Prn Use* IH 1 ampul TIDRT SERENITY Administration Amiodarone HCl 200 mg 08/01/18 22:00 08/06/18 10:23 Cordarone PO 200 mg DAILY SERENITY Administration Amlodipine Besylate 5 mg 08/01/18 22:00 08/06/18 10:23 Norvasc PO 5 mg QDAY SERENITY Administration Lipase/Protease/Amylase 1 each 08/04/18 10:24 Pancreaze 10,500 Unit FEEDTUBE PRN PRN For Clogged Feeding Tube Aspirin 81 mg 08/01/18 22:00 08/06/18 10:23 Halfprin Ec PO 81 mg DAILY SERENITY Administration Epoetin Beka 20,000 unit 08/02/18 10:41 08/02/18 12:20 Procrit SUB-Q 20,000 unit ANJANA PRN Administration hemodialysis Famotidine 20 mg 08/01/18 22:00 08/06/18 10:23 Pepcid PO 20 mg DAILY SERENITY Administration Heparin Sodium (Porcine) 5,000 unit 08/03/18 14:00 08/06/18 14:05 Heparin SUB-Q 5,000 unit Q8HR SERENITY Administration Sodium Chloride 100 mls @ 999 mls/hr 08/02/18 09:40 Nacl 0.9% IV ANJANA PRN Hypotension Insulin Human Lispro 0 unit 08/02/18 08:00 08/06/18 14:04 Humalog SUB-Q 2 unit Q6HR SERENITY Administration Protocol Loperamide HCl 2 mg 08/01/18 22:00 08/06/18 14:04 Imodium PO 2 mg Q6HR SERENITY Administration Metoprolol Tartrate 25 mg 08/01/18 22:00 08/06/18 10:23 Lopressor PO 25 mg BID SERENITY Administration Oxycodone/Acetaminophen 1 tab 08/06/18 14:32 Percocet 5/325 PO Q6H PRN Pain, Moderate (4-6) Quetiapine Fumarate 50 mg 08/05/18 22:00 08/05/18 22:23 Seroquel PO 50 mg QHS SERENITY Administration Quetiapine Fumarate 25 mg 08/05/18 22:00 08/06/18 10:23 Seroquel PO 25 mg BID SERENITY Administration Sevelamer Carbonate 800 mg 08/02/18 08:00 08/06/18 14:05 Renvela PO 800 mg TIDWM SERENITY Administration Simple Syrup 15 ml 02/21/19 10:24 Simple Syrup FEEDTUBE PRN PRN Hypoglycemia Simple Syrup 30 ml 08/04/18 10:24 Simple Syrup FEEDTUBE PRN PRN Hypoglycemia Sodium Bicarbonate 325 mg 08/04/18 10:24 Sodium Bicarbonate FEEDTUBE PRN PRN For Clogged Feeding Tube Sodium Chloride 10 ml 08/01/18 22:00 08/06/18 10:23 Sodium Chloride Flush Syringe 10 Ml IV 10 ml BID SERENITY Administration Sodium Chloride 10 ml 08/01/18 19:44 Sodium Chloride Flush Syringe 10 Ml IV PRN PRN LINE FLUSH Zinc Sulfate 220 mg 08/02/18 10:00 08/06/18 10:23 Zinc Sulfate PO 220 mg DAILY SERENITY Administration
[2018-08-06] MEDS ORDERED: K-DUR PO ONE (15:21)
--- NOTE | 2018-08-06 15:22 | Progress Note ---
Assessment and Plan / Acute on chronic respiratory failure with hypoxia Sec to improper or delayed suctioning at [facility] Daughter wants a different SNF Patient has been optimized to a large extent and discharged on Jul 29. Continue scheduled breathing treatments, t-tube suction given Antibiotics for possible aspiration pneumonitis / ESRD needing dialysis COnt HD per renal Nephrology consulted / IDDM (insulin dependent diabetes mellitus) Cont SS Coverage with T feeding diet / HTN (hypertension) Cont antihypertensives / GERD (gastroesophageal reflux disease) Cont PPI's /sacral ulcer stage -3, POA - wound crae following, need wound vac - Dr mckeon following /DVT prophylaxis, placed on heparin - Other chronic medical problems History of cardiac arrest Anoxic encephalopathy with chronic vegetative state History of Bradycardia arrhythmia, status post pacemaker hx of multiple cva hx of endocarditis Anemia of chronic disease History of mitral valves disease Disposition: pending placement. daughter does not want the same facility for discharge. Brief History: 58-year-old female with a history of CVA status post trach and pain, end-stage renal disease on dialysis, chronic vegetative state [place] [facility] [place] chief complaint of hypoxia. Patient was Was recently discharged from this facility on Jul 29 after a stay of 11 days after being treated for multiple problems including Sepsis, aspiration pneumonia, Encephalopathy, and Resp failure, ESRD. Patient was sent from [facility] again on 08/01/18 for Low O2 sats which Improved to 100 percent after proper suctioning. Daughter feels that her mother is not being suctioned properly. Hospitalist Physical exam: GENERAL: A phasic -[place] female lying on bed appeared to be in no discomfort. HEENT: Normocephalic. Atraumatic. No conjunctival congestion or icterus. Patient has moist mucous membranes. NECK: Supple. Trachea midline with trach in place CHEST/LUNGS: Coarse breath sounds auscultated bilaterally, breathing with T piece. No wheezes crackles or rhonchi. HEART/CARDIOVASCULAR: Regular in rate and rhythm. S1 and S2 positive. ABDOMEN: Abdomen is soft, nontender. Patient has normal bowel sounds. PEG tube in place SKIN: There is no rash. Warm and dry. NEURO: Follow minor command. Aphasic with a blank stare, moves extremities MUSCULOSKELETAL: No joint effusion or tenderness. EXTRIMITY: No edema, no cyanosis or clubbing. PSYCH: Unable to assess Subjective Date of service: 08/06/18 Principal diagnosis: Ac on Ch hypoxemic Resp failure; Diabetes type II; ESRD on dialysis (M/W/F) Interval history: Patient seen and examined. Medical records and medication list reviewed. No acute event overnight noted by the RN. Patient is aphasic but following commend discharge pending on placement Objective - Constitutional Vitals: Vital Signs - 12hr 08/06/18 08/06/18 08/06/18 04:32 08:00 08:10 Temperature 98.4 F Pulse Rate 82 Pulse Rate [ 82 83 Posterior Bilateral Throughout] Respiratory 18 Rate Respiratory 16 16 Rate [Posterior Bilateral Throughout] Blood Pressure 150/48 O2 Sat by Pulse 94 Oximetry O2 Sat by Pulse 98 Oximetry [ Assessment] 08/06/18 08/06/18 08/06/18 08:20 08:21 10:00 Temperature Pulse Rate 86 Pulse Rate [ Posterior Bilateral Throughout] Respiratory 17 Rate Respiratory Rate [Posterior Bilateral Throughout] Blood Pressure 90/42 O2 Sat by Pulse 96 99 98 Oximetry O2 Sat by Pulse Oximetry [ Assessment] 08/06/18 08/06/18 14:00 14:10 Temperature Pulse Rate Pulse Rate [ 83 84 Posterior Bilateral Throughout] Respiratory Rate Respiratory 16 16 Rate [Posterior Bilateral Throughout] Blood Pressure O2 Sat by Pulse Oximetry O2 Sat by Pulse Oximetry [ Assessment] - Labs CBC & Chem 7: 08/06/18 10:25 08/06/18 10:25 Labs: Abnormal lab results 08/05/18 08/06/18 08/06/18 Range/Units 23:42 06:05 10:25 WBC 11.8 H (4.5-11.0) K/mm3 RBC 2.61 L (3.65-5.03) M/mm3 Hgb 8.2 L (10.1-14.3) gm/dl Hct 24.9 L (30.3-42.9) % RDW 15.8 H (13.2-15.2) % Sodium (137-145) mmol/L Potassium (3.6-5.0) mmol/L Chloride (98-107) mmol/L BUN (7-17) mg/dL Creatinine (0.7-1.2) mg/dL Glucose (65-100) mg/dL POC Glucose 120 H 196 H (70-105) 08/06/18 08/06/18 Range/Units 10:25 12:31 WBC (4.5-11.0) K/mm3 RBC (3.65-5.03) M/mm3 Hgb (10.1-14.3) gm/dl Hct (30.3-42.9) % RDW (13.2-15.2) % Sodium 136 L (137-145) mmol/L Potassium 3.3 L D (3.6-5.0) mmol/L Chloride 93.2 L (98-107) mmol/L BUN 32 H (7-17) mg/dL Creatinine 4.5 H (0.7-1.2) mg/dL Glucose 134 H (65-100) mg/dL POC Glucose 184 H (70-105)
[2018-08-07] MEDS: IMODIUM PO SCH ×5 (00:27→23:51)
[2018-08-07] MEDS: HumaLOG SUB-Q SCH ×4 (00:32→17:05)
[2018-08-07] MEDS: HEPARIN SUB-Q SCH ×3 (05:19→23:00)
[2018-08-07] MEDS: DUONEB *Not for PRN Use IH SCH ×3 (08:36→20:49)
--- NOTE | 2018-08-07 09:12 | Progress Note ---
Assessment and Plan / Acute on chronic respiratory failure with hypoxia Sec to improper or delayed suctioning at [facility] Daughter wants a different SNF Patient has been optimized to a large extent and discharged on Jul 29. Continue scheduled breathing treatments, t-tube suction given Antibiotics for possible aspiration pneumonitis / ESRD needing dialysis COnt HD per renal Nephrology consulted / IDDM (insulin dependent diabetes mellitus) Cont SS Coverage with T feeding diet / HTN (hypertension) Cont antihypertensives / GERD (gastroesophageal reflux disease) Cont PPI's /sacral ulcer stage -3, POA - wound crae following, on wound vac - Dr mckeon following, placed on rectal tube for better healing /DVT prophylaxis, placed on heparin - Other chronic medical problems History of cardiac arrest Anoxic encephalopathy with chronic vegetative state History of Bradycardia arrhythmia, status post pacemaker hx of multiple cva hx of endocarditis Anemia of chronic disease History of mitral valves disease Disposition: daughter did not want the same facility for discharge. But no other place will accept her. Brief History: 58-year-old female with a history of CVA status post trach and pain, end-stage renal disease on dialysis, chronic vegetative state presented from [place] with a chief complaint of hypoxia. Patient was Was recently discharged from this facility on Jul 29 after a stay of 11 days after being treated for multiple problems including Sepsis, aspiration pneumonia, Encephalopathy, and Resp failure, ESRD. Patient was sent from [facility] again on 08/01/18 for Low O2 sats which Improved to 100 percent after proper suctioning. Daughter feels that her mother is not being suctioned properly. Hospitalist Physical exam: GENERAL: Aphasic -Filipino female lying on bed appeared to be in no discomfort. HEENT: Normocephalic. Atraumatic. No conjunctival congestion or icterus. Patient has moist mucous membranes. NECK: Supple. Trachea midline with trach in place CHEST/LUNGS: Coarse breath sounds auscultated bilaterally, breathing with T piece. No wheezes crackles or rhonchi. HEART/CARDIOVASCULAR: Regular in rate and rhythm. S1 and S2 positive. ABDOMEN: Abdomen is soft, nontender. Patient has normal bowel sounds. PEG tube in place SKIN: There is no rash. Warm and dry. NEURO: Follow minor command. Aphasic with a blank stare, moves extremities MUSCULOSKELETAL: No joint effusion or tenderness. EXTRIMITY: No edema, no cyanosis or clubbing. PSYCH: Unable to assess Subjective Date of service: 08/07/18 Principal diagnosis: Ac on Ch hypoxemic Resp failure; Diabetes type II; ESRD on dialysis (M/W/F) Interval history: Patient seen and examined. Medical records and medication list reviewed. No acute event overnight noted by the RN. Patient is aphasic but following commend discharge pending on placement Objective - Constitutional Vitals: Vital Signs - 12hr 08/06/18 08/06/18 08/06/18 21:15 22:00 23:54 Temperature 99.9 F H Pulse Rate Pulse Rate [ 94 H Posterior Bilateral Throughout] Respiratory 18 18 Rate Respiratory 20 Rate [Posterior Bilateral Throughout] Blood Pressure 98/51 O2 Sat by Pulse 100 Oximetry O2 Sat by Pulse 100 Oximetry [ Assessment] 08/07/18 08/07/18 08/07/18 00:00 02:46 04:32 Temperature 99.0 F Pulse Rate 84 83 Pulse Rate [ Posterior Bilateral Throughout] Respiratory 18 Rate Respiratory Rate [Posterior Bilateral Throughout] Blood Pressure 106/54 O2 Sat by Pulse 94 100 Oximetry O2 Sat by Pulse 100 Oximetry [ Assessment] 08/07/18 08:15 Temperature Pulse Rate Pulse Rate [ Posterior Bilateral Throughout] Respiratory 18 Rate Respiratory Rate [Posterior Bilateral Throughout] Blood Pressure O2 Sat by Pulse 96 Oximetry O2 Sat by Pulse Oximetry [ Assessment] - Labs CBC & Chem 7: 08/06/18 10:25 08/06/18 10:25 Labs: Abnormal lab results 08/06/18 08/06/18 08/06/18 Range/Units 10:25 10:25 12:31 WBC 11.8 H (4.5-11.0) K/mm3 RBC 2.61 L (3.65-5.03) M/mm3 Hgb 8.2 L (10.1-14.3) gm/dl Hct 24.9 L (30.3-42.9) % RDW 15.8 H (13.2-15.2) % Sodium 136 L (137-145) mmol/L Potassium 3.3 L D (3.6-5.0) mmol/L Chloride 93.2 L (98-107) mmol/L BUN 32 H (7-17) mg/dL Creatinine 4.5 H (0.7-1.2) mg/dL Glucose 134 H (65-100) mg/dL POC Glucose 184 H (70-105) 08/06/18 08/07/18 08/07/18 Range/Units 17:26 00:32 05:47 WBC (4.5-11.0) K/mm3 RBC (3.65-5.03) M/mm3 Hgb (10.1-14.3) gm/dl Hct (30.3-42.9) % RDW (13.2-15.2) % Sodium (137-145) mmol/L Potassium (3.6-5.0) mmol/L Chloride (98-107) mmol/L BUN (7-17) mg/dL Creatinine (0.7-1.2) mg/dL Glucose (65-100) mg/dL POC Glucose 174 H 190 H 203 H (70-105)
[2018-08-07] MEDS: PEPCID PO SCH (09:50)
[2018-08-07] MEDS: CORDARONE PO SCH (09:50)
[2018-08-07] MEDS: LOPRESSOR PO SCH ×2 (09:50→22:55)
[2018-08-07] MEDS: HALFPRIN EC PO SCH (09:50)
[2018-08-07] MEDS: SODIUM CHLORIDE FLUSH SYRINGE 10 ML IV SCH ×2 (09:50→22:55)
[2018-08-07] MEDS: ZINC SULFATE PO SCH (09:50)
[2018-08-07] MEDS: NORVASC PO SCH (09:50)
[2018-08-07] MEDS: RENVELA PO SCH ×3 (09:50→17:04)
--- NOTE | 2018-08-07 15:52 | Progress Note ---
Assessment and Plan 1. ESRD: Continue hemodialysis three times a week, MWF schedule. 2. Respiratory failure: Trached, on T-piece. 3. Anemia: Epogen with HD. 4. H/o Cardiac arrest. 5. H/o CVA. 6. Anoxic encephalopathy. Await placement. Subjective Date of service: 08/07/18 Principal diagnosis: Ac on Ch hypoxemic Resp failure; Diabetes type II; ESRD on dialysis (M/W/F) Interval history: Patient was seen and examined at the bedside. Objective - Vital Signs Vital signs: Vital Signs - 12hr 08/07/18 08/07/18 08/07/18 04:32 07:43 08:15 Temperature 99.0 F 98.8 F Pulse Rate 83 92 H Pulse Rate [ Posterior Bilateral Throughout] Respiratory 18 20 18 Rate Respiratory Rate [Posterior Bilateral Throughout] Blood Pressure 106/54 108/39 O2 Sat by Pulse 100 97 96 Oximetry O2 Sat by Pulse Oximetry [ Assessment] 08/07/18 08/07/18 08/07/18 08:32 08:36 08:46 Temperature Pulse Rate Pulse Rate [ 94 H 96 H Posterior Bilateral Throughout] Respiratory Rate Respiratory 18 18 Rate [Posterior Bilateral Throughout] Blood Pressure O2 Sat by Pulse Oximetry O2 Sat by Pulse 99 Oximetry [ Assessment] 08/07/18 08/07/18 08/07/18 09:53 11:48 15:45 Temperature 99.5 F Pulse Rate 89 Pulse Rate [ 87 Posterior Bilateral Throughout] Respiratory 20 Rate Respiratory 18 Rate [Posterior Bilateral Throughout] Blood Pressure 85/47 O2 Sat by Pulse 99 94 Oximetry O2 Sat by Pulse Oximetry [ Assessment] 08/07/18 15:48 Temperature Pulse Rate Pulse Rate [ Posterior Bilateral Throughout] Respiratory Rate Respiratory Rate [Posterior Bilateral Throughout] Blood Pressure O2 Sat by Pulse Oximetry O2 Sat by Pulse 99 Oximetry [ Assessment] - General Appearance General appearance: well-developed, appears stated age, other (not in distress) EENT: ATNC Neck: other (Trached on T-piece) Respiratory: Present: Clear to Ascultation Cardiology: regular, S1S2, no murmurs Gastrointestinal: normoactive bowel sounds Integumentary: no rash, warm and dry Neurologic: other (opens eyes) Musculoskeletal: other (no edema, left arm AVF / AVG) - Lab 08/06/18 10:25 08/06/18 10:25 Most recent lab results Calcium 8.6 mg/dL (8.4-10.2) 08/06/18 10:25 Magnesium 2.80 mg/dL (1.7-2.3) H 08/01/18 19:56 Medications & Allergies - Medications Allergies/Adverse Reactions: Allergies ondansetron Allergy (Verified 08/01/18 11:00) Anaphylaxis sulfamethoxazole [From Bactrim] Allergy (Verified 08/01/18 11:00) Anaphylaxis trimethoprim [From Bactrim] Allergy (Verified 08/01/18 11:00) Anaphylaxis vancomycin Allergy (Verified 08/01/18 11:00) Anaphylaxis Home Medications: Home Medications Medication Instructions Recorded Confirmed Last Taken Type ALBUTEROL NEB's [Proventil 0.083% 3 ml IH Q4HR 07/26/18 08/01/18 Unknown History NEBS] Metoprolol [Lopressor TAB] 25 mg PO BID tablet 07/29/18 08/01/18 Unknown Rx amLODIPine [Norvasc] 5 mg PO QDAY tablet 07/29/18 08/01/18 Unknown Rx Amiodarone HCl [Pacerone] 200 mg PO DAILY 08/01/18 08/01/18 Unknown History Aspirin [Adult Aspirin] 81 mg PO DAILY 08/01/18 08/01/18 Unknown History Carvedilol [Coreg] 12.5 mg PO BID 08/01/18 08/01/18 Unknown History Famotidine 20 mg PO DAILY 08/01/18 08/01/18 Unknown History Gabapentin [Gralise] 30 mg PO QHS 08/01/18 08/01/18 Unknown History Lispro Insulin [Humalog] 0 unit SQ TID 08/01/18 08/01/18 Unknown History Loperamide [Imodium] 2 mg PO Q6H 08/01/18 08/01/18 Unknown History Sevelamer Carbonate [Renvela] 800 mg PO TIDWM 08/01/18 08/01/18 Unknown History Zinc Sulfate 220 mg PO DAILY 08/01/18 08/01/18 Unknown History Active Medications: Generic Name Dose Route Start Last Admin Trade Name Freq PRN Reason Stop Dose Admin Acetaminophen 650 mg 08/01/18 19:44 Tylenol PO Q4H PRN Pain MILD(1-3)/Fever >100.5/CASAREZ Albuterol/Ipratropium 1 ampul 08/02/18 14:00 08/07/18 15:45 Duoneb *Not For Prn Use* IH 1 ampul TIDRT SERENITY Administration Amiodarone HCl 200 mg 08/01/18 22:00 08/07/18 09:50 Cordarone PO 200 mg DAILY SERENITY Administration Amlodipine Besylate 5 mg 08/01/18 22:00 08/07/18 09:50 Norvasc PO 5 mg QDAY SERENITY Administration Lipase/Protease/Amylase 1 each 08/04/18 10:[address] 10,500 Unit FEEDTUBE PRN PRN For Clogged Feeding Tube Aspirin 81 mg 08/01/18 22:00 08/07/18 09:50 Halfprin Ec PO 81 mg DAILY SERENITY Administration Epoetin Beka 20,000 unit 08/02/18 10:41 08/02/18 12:20 Procrit SUB-Q 20,000 unit ANJANA PRN Administration hemodialysis Famotidine 20 mg 08/01/18 22:00 08/07/18 09:50 Pepcid PO 20 mg DAILY SERENITY Administration Heparin Sodium (Porcine) 5,000 unit 08/03/18 14:00 08/07/18 14:15 Heparin SUB-Q 5,000 unit Q8HR SERENITY Administration Sodium Chloride 100 mls @ 999 mls/hr 08/02/18 09:40 Nacl 0.9% IV ANJANA PRN Hypotension Insulin Human Lispro 0 unit 08/02/18 08:00 08/07/18 12:31 Humalog SUB-Q 2 unit Q6HR SERENITY Administration Protocol Loperamide HCl 2 mg 08/01/18 22:00 08/07/18 12:31 Imodium PO 2 mg Q6HR SERENITY Administration Metoprolol Tartrate 25 mg 08/01/18 22:00 08/07/18 09:50 Lopressor PO 25 mg BID SERENITY Administration Quetiapine Fumarate 50 mg 08/05/18 22:00 08/06/18 22:16 Seroquel PO 50 mg QHS SERENITY Administration Quetiapine Fumarate 25 mg 08/05/18 22:00 08/07/18 09:50 Seroquel PO 25 mg BID SERENITY Administration Sevelamer Carbonate 800 mg 08/02/18 08:00 08/07/18 12:31 Renvela PO 800 mg TIDWM SERENITY Administration Simple Syrup 15 ml 08/04/18 10:24 Simple Syrup FEEDTUBE PRN PRN Hypoglycemia Simple Syrup 30 ml 08/04/18 10:24 Simple Syrup FEEDTUBE PRN PRN Hypoglycemia Sodium Bicarbonate 325 mg 08/04/18 10:24 Sodium Bicarbonate FEEDTUBE PRN PRN For Clogged Feeding Tube Sodium Chloride 10 ml 08/01/18 22:00 08/07/18 09:50 Sodium Chloride Flush Syringe 10 Ml IV 10 ml BID SERENITY Administration Sodium Chloride 10 ml 08/01/18 19:44 Sodium Chloride Flush Syringe 10 Ml IV PRN PRN LINE FLUSH Zinc Sulfate 220 mg 08/02/18 10:00 08/07/18 09:50 Zinc Sulfate PO 220 mg DAILY SERENITY Administration
--- NOTE | 2018-08-07 17:40 | Progress Note ---
Assessment and Plan Acute on Chronic hypoxemic respiratory failure Acute on Chronic Encephalopathy (Toxic / Metabolic / Anoxic) Diabetes type II End-stage renal disease, on dialysis Wednesday, Wednesday and Wednesday Cardiomyopathy (S/P AICD implantation) Anemia of chronic disease Leukocytosis Adult failure to thrive s/p trachesotomy Oropharyngeal dysphagia (s/p PEG) S/p PPM for sinus arrest s/p Mitral valve repair h/o Mitral Valve SBE Atrial Fibrillation (Paroxysmal) - continue seroquel for delirium / anxiety - continue RTC T-piece as tolerated - continue supportive HD/UF for toxin and volume clearance - PT/OT as tolerated - continue VTE and Stress ulcer prophylaxis - continue enteric feedings as tolerated - continue accucheck with glycemic control. Target blood glucose of 140-180mg/dL - continue to monitor closely for hypoglycemia - continue bronchodilators with pulmonary hygiene per RT - Wean supplemental oxygen for O2 sats > 90% - CXR and ABG as indicated - continue other care per attending / other consultants .... discharge planning ongoing concurrently (family asking for different facility) .... re-evaluate in am & prn Subjective Date of service: 08/07/18 Principal diagnosis: Ac on Ch hypoxemic Resp failure; Diabetes type II; ESRD on dialysis (M/W/F) Interval history: Patient is seen today for: Acute on Chronic hypoxemic respiratory failure; Acute Encephalopathy (Toxic / Metabolic / Anoxic); Diabetes type II; End-stage renal disease (M/W/F) Seen and examined at bedside; 24hour events reviewed; nursing and respiratory care staff consulted; no adverse overnight events reported to me; resting peacefully in bed; remains on T-piece; No emesis or overt aspiration Objective Vital Signs - 12hr 08/07/18 08/07/18 08/07/18 07:43 08:15 08:32 Temperature 98.8 F Pulse Rate 92 H Pulse Rate [ Posterior Bilateral Throughout] Respiratory 20 18 Rate Respiratory Rate [Posterior Bilateral Throughout] Blood Pressure 108/39 O2 Sat by Pulse 97 96 Oximetry O2 Sat by Pulse 99 Oximetry [ Assessment] 08/07/18 08/07/18 08/07/18 08:36 08:46 09:53 Temperature Pulse Rate Pulse Rate [ 94 H 96 H Posterior Bilateral Throughout] Respiratory Rate Respiratory 18 18 Rate [Posterior Bilateral Throughout] Blood Pressure O2 Sat by Pulse 99 Oximetry O2 Sat by Pulse Oximetry [ Assessment] 08/07/18 08/07/18 08/07/18 11:48 15:45 15:48 Temperature 99.5 F Pulse Rate 89 Pulse Rate [ 87 Posterior Bilateral Throughout] Respiratory 20 Rate Respiratory 18 Rate [Posterior Bilateral Throughout] Blood Pressure 85/47 O2 Sat by Pulse 94 Oximetry O2 Sat by Pulse 99 Oximetry [ Assessment] 08/07/18 15:56 Temperature Pulse Rate Pulse Rate [ 89 Posterior Bilateral Throughout] Respiratory Rate Respiratory 18 Rate [Posterior Bilateral Throughout] Blood Pressure O2 Sat by Pulse Oximetry O2 Sat by Pulse Oximetry [ Assessment] Constitutional: alert, appears uncomfortable, other (middle aged AAF, normocephalic with mildly increased respiratory effort on t-piece) Eyes: non-icteric ENT: oropharynx moist Neck: supple, no lymphadenopathy, no JVD, other (+ midline tracheostomy tube) Effort: mildly labored Ascultation: Bilateral: diminished breath sounds, rhonchi Percussion: Bilateral: not dull Cardiovascular: regular rate and rhythm, murmur noted (systolic) Gastrointestinal: normoactive bowel sounds, soft, non-tender, non-distended Integumentary: rash Extremities: no cyanosis, no edema, pulses normal, no ischemia or petechiae Neurologic: non-focal exam (grossly), pupils equal and round, CN II-XII normal, motor strength normal and, other (delirium vs dementia element) Psychiatric: anxious, other (delirium vs dementia element) CBC and BMP: 08/18/18 06:59 08/18/18 06:59 ABG, PT/INR, D-dimer: ABG POC ABG pH 7.403 (7.35-7.45) 08/02/18 09:07 POC ABG pCO2 43.2 (35-45) 08/02/18 09:07 POC ABG pO2 125 (80-105) H 08/02/18 09:07 POC ABG HCO3 26.9 08/02/18 09:07 POC ABG Total CO2 28 08/02/18 09:07 POC ABG O2 Sat 99 08/02/18 09:07 PT/INR, D-dimer PT 14.4 Sec. (12.2-14.9) 08/01/18 11:30 INR 1.05 (0.87-1.13) 08/01/18 11:30 Abnormal lab findings: Abnormal Labs 08/01/18 08/01/18 08/01/18 11:30 11:30 11:30 WBC 13.7 H RBC 2.81 L Hgb 8.9 L Hct 27.4 L MCV 98 H MCH MCHC RDW 16.0 H Lymph % (Auto) 10.1 L Seg Neutrophils % 84.3 H Seg Neuts % (Manual) Lymphocytes % (Manual) Seg Neutrophils # 11.6 H Seg Neutrophils # Man Lymphocytes # (Manual) APTT 23.5 L POC ABG pCO2 POC ABG pO2 Sodium 133 L Potassium Chloride 89.8 L BUN 78 H Creatinine 8.7 H D Glucose 177 H POC Glucose Magnesium ALT Albumin 08/01/18 08/01/18 08/02/18 18:38 19:56 09:07 WBC RBC Hgb Hct MCV MCH MCHC RDW Lymph % (Auto) Seg Neutrophils % Seg Neuts % (Manual) Lymphocytes % (Manual) Seg Neutrophils # Seg Neutrophils # Man Lymphocytes # (Manual) APTT POC ABG pCO2 48.2 H POC ABG pO2 146 H 125 H Sodium Potassium Chloride BUN Creatinine Glucose POC Glucose Magnesium 2.80 H ALT Albumin 08/02/18 08/02/18 08/02/18 16:22 16:22 17:21 WBC RBC 2.42 L Hgb 8.1 L Hct 22.8 L MCV MCH 34 H MCHC 36 H RDW 15.7 H Lymph % (Auto) Seg Neutrophils % Seg Neuts % (Manual) 94.0 H Lymphocytes % (Manual) 6.0 L Seg Neutrophils # Seg Neutrophils # Man 9.9 H Lymphocytes # (Manual) 0.6 L APTT POC ABG pCO2 POC ABG pO2 Sodium 134 L Potassium Chloride 90.7 L BUN 38 H Creatinine 4.8 H Glucose 175 H POC Glucose 191 H Magnesium ALT < 5 L Albumin 2.9 L 08/03/18 08/03/18 08/03/18 05:19 07:43 07:43 WBC RBC 2.67 L Hgb 8.3 L Hct 24.9 L MCV MCH MCHC RDW 15.6 H Lymph % (Auto) Seg Neutrophils % Seg Neuts % (Manual) Lymphocytes % (Manual) Seg Neutrophils # Seg Neutrophils # Man Lymphocytes # (Manual) APTT POC ABG pCO2 POC ABG pO2 Sodium 134 L Potassium Chloride 89.7 L BUN 52 H Creatinine 5.9 H Glucose 180 H POC Glucose 212 H Magnesium ALT Albumin 08/03/18 08/03/18 08/04/18 12:32 23:42 05:42 WBC RBC Hgb Hct MCV MCH MCHC RDW Lymph % (Auto) Seg Neutrophils % Seg Neuts % (Manual) Lymphocytes % (Manual) Seg Neutrophils # Seg Neutrophils # Man Lymphocytes # (Manual) APTT POC ABG pCO2 POC ABG pO2 Sodium Potassium Chloride BUN Creatinine Glucose POC Glucose 223 H 139 H 151 H Magnesium ALT Albumin 08/04/18 08/04/18 08/04/18 12:11 17:12 20:55 WBC RBC Hgb Hct MCV MCH MCHC RDW Lymph % (Auto) Seg Neutrophils % Seg Neuts % (Manual) Lymphocytes % (Manual) Seg Neutrophils # Seg Neutrophils # Man Lymphocytes # (Manual) APTT POC ABG pCO2 POC ABG pO2 Sodium Potassium Chloride BUN Creatinine Glucose POC Glucose 193 H 137 H 175 H Magnesium ALT Albumin 08/04/18 08/05/18 08/05/18 23:23 05:55 12:03 WBC RBC Hgb Hct MCV MCH MCHC RDW Lymph % (Auto) Seg Neutrophils % Seg Neuts % (Manual) Lymphocytes % (Manual) Seg Neutrophils # Seg Neutrophils # Man Lymphocytes # (Manual) APTT POC ABG pCO2 POC ABG pO2 Sodium Potassium Chloride BUN Creatinine Glucose POC Glucose 165 H 135 H 158 H Magnesium ALT Albumin 08/05/18 08/06/18 08/06/18 23:42 06:05 10:25 WBC 11.8 H RBC 2.61 L Hgb 8.2 L Hct 24.9 L MCV MCH MCHC RDW 15.8 H Lymph % (Auto) Seg Neutrophils % Seg Neuts % (Manual) Lymphocytes % (Manual) Seg Neutrophils # Seg Neutrophils # Man Lymphocytes # (Manual) APTT POC ABG pCO2 POC ABG pO2 Sodium Potassium Chloride BUN Creatinine Glucose POC Glucose 120 H 196 H Magnesium ALT Albumin 08/06/18 08/06/18 08/06/18 10:25 12:31 17:26 WBC RBC Hgb Hct MCV MCH MCHC RDW Lymph % (Auto) Seg Neutrophils % Seg Neuts % (Manual) Lymphocytes % (Manual) Seg Neutrophils # Seg Neutrophils # Man Lymphocytes # (Manual) APTT POC ABG pCO2 POC ABG pO2 Sodium 136 L Potassium 3.3 L D Chloride 93.2 L BUN 32 H Creatinine 4.5 H Glucose 134 H POC Glucose 184 H 174 H Magnesium ALT Albumin 08/07/18 08/07/18 08/07/18 00:32 05:47 11:53 WBC RBC Hgb Hct MCV MCH MCHC RDW Lymph % (Auto) Seg Neutrophils % Seg Neuts % (Manual) Lymphocytes % (Manual) Seg Neutrophils # Seg Neutrophils # Man Lymphocytes # (Manual) APTT POC ABG pCO2 POC ABG pO2 Sodium Potassium Chloride BUN Creatinine Glucose POC Glucose 190 H 203 H 161 H Magnesium ALT Albumin 08/07/18 16:39 WBC RBC Hgb Hct MCV MCH MCHC RDW Lymph % (Auto) Seg Neutrophils % Seg Neuts % (Manual) Lymphocytes % (Manual) Seg Neutrophils # Seg Neutrophils # Man Lymphocytes # (Manual) APTT POC ABG pCO2 POC ABG pO2 Sodium Potassium Chloride BUN Creatinine Glucose POC Glucose 217 H Magnesium ALT Albumin
[2018-08-07] MEDS: TYLENOL PO PRN (18:45)
[2018-08-08] MEDS: TYLENOL PO PRN ×2 (00:19→21:10)
[2018-08-08] MEDS: HumaLOG SUB-Q SCH ×4 (00:30→20:18)
[2018-08-08] MEDS: IMODIUM PO SCH ×3 (06:35→20:19)
[2018-08-08] MEDS: HEPARIN SUB-Q SCH ×3 (06:36→21:13)
[2018-08-08] MEDS: DUONEB *Not for PRN Use IH SCH ×3 (07:55→20:50)
--- NOTE | 2018-08-08 09:04 | Progress Note ---
Assessment and Plan 1. ESRD: Continue hemodialysis three times a week, MWF schedule. 2. Respiratory failure: Trached, on T-piece. 3. Anemia: Epogen with HD. 4. Hypotension: Amlodipine stopped. 5. H/o Cardiac arrest. 6. H/o CVA. 7. Anoxic encephalopathy. Await placement. Subjective Date of service: 08/08/18 Principal diagnosis: Ac on Ch hypoxemic Resp failure; Diabetes type II; ESRD on dialysis (M/W/F) Interval history: Patient was seen and examined at the bedside. Objective - Vital Signs Vital signs: Vital Signs - 12hr 08/07/18 08/07/18 08/07/18 22:00 22:55 23:39 Temperature 100.2 F H Pulse Rate 91 H 92 H Pulse Rate [ 91 H Apical] Pulse Rate [ 91 H From Monitor] Pulse Rate [ 99 H Right Radial] Respiratory 18 18 Rate Blood Pressure 90/28 90/28 O2 Sat by Pulse 100 100 Oximetry 08/08/18 05:08 Temperature 98.0 F Pulse Rate 87 Pulse Rate [ Apical] Pulse Rate [ From Monitor] Pulse Rate [ Right Radial] Respiratory 18 Rate Blood Pressure 109/51 O2 Sat by Pulse 100 Oximetry - General Appearance General appearance: well-developed, appears stated age, other (not in distress) EENT: ATNC Neck: other (Trached) Respiratory: Present: Clear to Ascultation Cardiology: regular, S1S2, no murmurs Gastrointestinal: normoactive bowel sounds, no tenderness, no distended, other (PEG tube noted) Integumentary: no rash Neurologic: other (opens eyes, not following any command) Musculoskeletal: other (no edema, left arm AVF) - Lab 08/06/18 10:25 08/06/18 10:25 Most recent lab results Calcium 8.6 mg/dL (8.4-10.2) 08/06/18 10:25 Magnesium 2.80 mg/dL (1.7-2.3) H 08/01/18 19:56 Medications & Allergies - Medications Allergies/Adverse Reactions: Allergies ondansetron Allergy (Verified 08/01/18 11:00) Anaphylaxis sulfamethoxazole [From Bactrim] Allergy (Verified 08/01/18 11:00) Anaphylaxis trimethoprim [From Bactrim] Allergy (Verified 08/01/18 11:00) Anaphylaxis vancomycin Allergy (Verified 08/01/18 11:00) Anaphylaxis Home Medications: Home Medications Medication Instructions Recorded Confirmed Last Taken Type ALBUTEROL NEB's [Proventil 0.083% 3 ml IH Q4HR 07/26/18 08/01/18 Unknown History NEBS] Metoprolol [Lopressor TAB] 25 mg PO BID tablet 07/29/18 08/01/18 Unknown Rx amLODIPine [Norvasc] 5 mg PO QDAY tablet 07/29/18 08/01/18 Unknown Rx Amiodarone HCl [Pacerone] 200 mg PO DAILY 08/01/18 08/01/18 Unknown History Aspirin [Adult Aspirin] 81 mg PO DAILY 08/01/18 08/01/18 Unknown History Carvedilol [Coreg] 12.5 mg PO BID 08/01/18 08/01/18 Unknown History Famotidine 20 mg PO DAILY 08/01/18 08/01/18 Unknown History Gabapentin [Gralise] 30 mg PO QHS 08/01/18 08/01/18 Unknown History Lispro Insulin [Humalog] 0 unit SQ TID 08/01/18 08/01/18 Unknown History Loperamide [Imodium] 2 mg PO Q6H 08/01/18 08/01/18 Unknown History Sevelamer Carbonate [Renvela] 800 mg PO TIDWM 08/01/18 08/01/18 Unknown History Zinc Sulfate 220 mg PO DAILY 08/01/18 08/01/18 Unknown History Active Medications: Generic Name Dose Route Start Last Admin Trade Name Freq PRN Reason Stop Dose Admin Acetaminophen 650 mg 08/01/18 19:44 08/08/18 00:19 Tylenol PO 650 mg Q4H PRN Administration Pain MILD(1-3)/Fever >100.5/CASAREZ Albuterol/Ipratropium 1 ampul 08/02/18 14:00 08/08/18 07:55 Duoneb *Not For Prn Use* IH 1 ampul TIDRT SERENITY Administration Amiodarone HCl 200 mg 08/01/18 22:00 08/07/18 09:50 Cordarone PO 200 mg DAILY SERENITY Administration Amlodipine Besylate 5 mg 08/01/18 22:00 08/07/18 09:50 Norvasc PO 5 mg QDAY SERENITY Administration Lipase/Protease/Amylase 1 each 08/04/18 10:24 Pancretevin Jerome 10,500 Unit FEEDTUBE PRN PRN For Clogged Feeding Tube Aspirin 81 mg 08/01/18 22:00 08/07/18 09:50 Halfprin Ec PO 81 mg DAILY SERENITY Administration Epoetin [place] 20,000 unit 08/02/18 10:41 08/02/18 12:20 Procrit SUB-Q 20,000 unit ANJANA PRN Administration hemodialysis Famotidine 20 mg 08/01/18 22:00 08/07/18 09:50 Pepcid PO 20 mg DAILY SERENITY Administration Heparin Sodium (Porcine) 5,000 unit 08/03/18 14:00 08/08/18 06:36 Heparin SUB-Q 5,000 unit Q8HR SERENITY Administration Sodium Chloride 100 mls @ 999 mls/hr 08/02/18 09:40 Nacl 0.9% IV ANJANA PRN Hypotension Insulin Human Lispro 0 unit 08/02/18 08:00 08/08/18 00:30 Humalog SUB-Q 2 unit Q6HR SERENITY Administration Protocol Loperamide HCl 2 mg 08/01/18 22:00 08/08/18 06:35 Imodium PO 2 mg Q6HR SERENITY Administration Metoprolol Tartrate 25 mg 08/01/18 22:00 08/07/18 22:55 Lopressor PO Not Given BID [facility] Quetiapine Fumarate 50 mg 08/05/18 22:00 08/07/18 22:55 Seroquel PO 50 mg QHS SERENITY Administration Quetiapine Fumarate 25 mg 08/08/18 08:00 Seroquel PO BID@0800,1700 [facility] Sevelamer Carbonate 800 mg 08/02/18 08:00 08/07/18 17:04 Renvela PO 800 mg TIDWM SERENITY Administration Simple Syrup 15 ml 08/04/18 10:24 Simple Syrup FEEDTUBE PRN PRN Hypoglycemia Simple Syrup 30 ml 08/04/18 10:24 Simple Syrup FEEDTUBE PRN PRN Hypoglycemia Sodium Bicarbonate 325 mg 08/04/18 10:24 Sodium Bicarbonate FEEDTUBE PRN PRN For Clogged Feeding Tube Sodium Chloride 10 ml 08/01/18 22:00 08/07/18 22:55 Sodium Chloride Flush Syringe 10 Ml IV 10 ml BID SERENITY Administration Sodium Chloride 10 ml 08/01/18 19:44 Sodium Chloride Flush Syringe 10 Ml IV PRN PRN LINE FLUSH Zinc Sulfate 220 mg 08/02/18 10:00 08/07/18 09:50 Zinc Sulfate PO 220 mg DAILY SERENITY Administration
[2018-08-08] MEDS: RENVELA PO SCH ×3 (09:26→20:16)
[2018-08-08] MEDS: CORDARONE PO SCH (09:27)
[2018-08-08] MEDS: HALFPRIN EC PO SCH (09:28)
[2018-08-08] MEDS: LOPRESSOR PO SCH ×2 (09:28→22:00)
[2018-08-08] MEDS: PEPCID PO SCH (09:29)
[2018-08-08] MEDS: SODIUM CHLORIDE FLUSH SYRINGE 10 ML IV SCH ×2 (09:29→21:14)
[2018-08-08] MEDS: ZINC SULFATE PO SCH (09:29)
--- NOTE | 2018-08-08 11:51 | Progress Note ---
Assessment and Plan Acute on Chronic hypoxemic respiratory failure Acute on Chronic Encephalopathy (Toxic / Metabolic / Anoxic) Diabetes type II End-stage renal disease, on dialysis Wednesday, Wednesday and Wednesday Cardiomyopathy (S/P AICD implantation) Anemia of chronic disease Leukocytosis Adult failure to thrive s/p trachesotomy Oropharyngeal dysphagia (s/p PEG) S/p PPM for sinus arrest s/p Mitral valve repair h/o Mitral Valve SBE Atrial Fibrillation (Paroxysmal) -Continue ATP -Trach care, airway clearance, secretion management - PT/OT as tolerated -VTE and Stress ulcer prophylaxis - enteric feedings as tolerated - accucheck with glycemic control. Target blood glucose of 140-180mg/dL - monitor closely for hypoglycemia - bronchodilators with pulmonary hygiene per RT - Wean supplemental oxygen for O2 sats > 90% - supportive HD/UF for toxin and volume clearance - CXR and ABG as indicated -continue wound care and wound vac -discharge planning Subjective Date of service: 08/08/18 Principal diagnosis: Ac on Ch hypoxemic Resp failure; Diabetes type II; ESRD on dialysis (M/W/F) Interval history: Patient is seen today for: Acute on Chronic hypoxemic respiratory failure; Acute Encephalopathy (Toxic / Metabolic / Anoxic); Diabetes type II; End-stage renal disease (M/W/F) Seen and examined at bedside; 24hour events reviewed; nursing and respiratory care staff consulted; no adverse overnight events reported to me; resting peacefully in bed; remains on T-piece; just completed her session on HD, tolerated it well Objective Vital Signs - 12hr 08/08/18 08/08/18 08/08/18 05:08 07:28 07:55 Temperature 98.0 F 99.2 F Pulse Rate 87 55 L Pulse Rate [ 89 Anterior Bilateral Throughout] Respiratory 18 20 Rate Respiratory 18 Rate [Anterior Bilateral Throughout] Blood Pressure 109/51 96/36 O2 Sat by Pulse 100 73 L 98 Oximetry O2 Sat by Pulse 98 Oximetry [ Assessment] 08/08/18 08/08/18 08/08/18 08:05 09:15 09:20 Temperature 99.2 F Pulse Rate 91 H 90 Pulse Rate [ 87 Anterior Bilateral Throughout] Respiratory 20 Rate Respiratory 18 Rate [Anterior Bilateral Throughout] Blood Pressure 93/45 92/45 O2 Sat by Pulse Oximetry O2 Sat by Pulse Oximetry [ Assessment] 08/08/18 08/08/1819 09:28 09:30 09:45 Temperature Pulse Rate 84 90 91 H Pulse Rate [ Anterior Bilateral Throughout] Respiratory Rate Respiratory Rate [Anterior Bilateral Throughout] Blood Pressure 90/42 87/44 83/41 O2 Sat by Pulse Oximetry O2 Sat by Pulse Oximetry [ Assessment] 08/08/18 08/08/18 08/08/18 10:00 10:15 10:30 Temperature Pulse Rate 90 92 H 89 Pulse Rate [ Anterior Bilateral Throughout] Respiratory Rate Respiratory Rate [Anterior Bilateral Throughout] Blood Pressure 82/42 80/43 82/46 O2 Sat by Pulse Oximetry O2 Sat by Pulse Oximetry [ Assessment] 08/08/18 08/08/18 08/08/18 10:45 11:00 11:15 Temperature Pulse Rate 90 90 90 Pulse Rate [ Anterior Bilateral Throughout] Respiratory Rate Respiratory Rate [Anterior Bilateral Throughout] Blood Pressure 78/43 80/41 74/43 O2 Sat by Pulse Oximetry O2 Sat by Pulse Oximetry [ Assessment] 08/08/18 11:30 Temperature Pulse Rate 90 Pulse Rate [ Anterior Bilateral Throughout] Respiratory Rate Respiratory Rate [Anterior Bilateral Throughout] Blood Pressure 81/44 O2 Sat by Pulse Oximetry O2 Sat by Pulse Oximetry [ Assessment] Constitutional: alert, appears uncomfortable, other (middle aged AAF, normocephalic with mildly increased respiratory effort on t-piece) Eyes: non-icteric ENT: oropharynx moist Neck: supple, no lymphadenopathy, no JVD, other (+ midline tracheostomy tube) Effort: mildly labored Ascultation: Bilateral: diminished breath sounds, rhonchi Percussion: Bilateral: not dull Cardiovascular: regular rate and rhythm, murmur noted (s1,S2, systolic murmur) Gastrointestinal: normoactive bowel sounds, soft, non-tender, non-distended, other (PEG in place) Integumentary: rash Extremities: no cyanosis, no edema, pulses normal, no ischemia or petechiae Neurologic: pupils equal and round, other (not obeying commands to adequately assess) Psychiatric: other (flat affect) CBC and BMP: 08/06/18 10:25 08/06/18 10:25 ABG, PT/INR, D-dimer: ABG POC ABG pH 7.403 (7.35-7.45) 08/02/18 09:07 POC ABG pCO2 43.2 (35-45) 08/02/18 09:07 POC ABG pO2 125 (80-105) H 08/02/18 09:07 POC ABG HCO3 26.9 08/02/18 09:07 POC ABG Total CO2 28 08/02/18 09:07 POC ABG O2 Sat 99 08/02/18 09:07 PT/INR, D-dimer PT 14.4 Sec. (12.2-14.9) 08/01/18 11:30 INR 1.05 (0.87-1.13) 08/01/18 11:30 Abnormal lab findings: Abnormal Labs 08/01/18 08/01/18 08/01/18 11:30 11:30 11:30 WBC 13.7 H RBC 2.81 L Hgb 8.9 L Hct 27.4 L MCV 98 H MCH MCHC RDW 16.0 H Lymph % (Auto) 10.1 L Seg Neutrophils % 84.3 H Seg Neuts % (Manual) Lymphocytes % (Manual) Seg Neutrophils # 11.6 H Seg Neutrophils # Man Lymphocytes # (Manual) APTT 23.5 L POC ABG pCO2 POC ABG pO2 Sodium 133 L Potassium Chloride 89.8 L BUN 78 H Creatinine 8.7 H D Glucose 177 H POC Glucose Magnesium ALT Albumin 08/01/18 08/01/18 08/02/18 18:38 19:56 09:07 WBC RBC Hgb Hct MCV MCH MCHC RDW Lymph % (Auto) Seg Neutrophils % Seg Neuts % (Manual) Lymphocytes % (Manual) Seg Neutrophils # Seg Neutrophils # Man Lymphocytes # (Manual) APTT POC ABG pCO2 48.2 H POC ABG pO2 146 H 125 H Sodium Potassium Chloride BUN Creatinine Glucose POC Glucose Magnesium 2.80 H ALT Albumin 08/02/18 08/02/18 08/02/18 16:22 16:22 17:21 WBC RBC 2.42 L Hgb 8.1 L Hct 22.8 L MCV MCH 34 H MCHC 36 H RDW 15.7 H Lymph % (Auto) Seg Neutrophils % Seg Neuts % (Manual) 94.0 H Lymphocytes % (Manual) 6.0 L Seg Neutrophils # Seg Neutrophils # Man 9.9 H Lymphocytes # (Manual) 0.6 L APTT POC ABG pCO2 POC ABG pO2 Sodium 134 L Potassium Chloride 90.7 L BUN 38 H Creatinine 4.8 H Glucose 175 H POC Glucose 191 H Magnesium ALT < 5 L Albumin 2.9 L 08/03/18 08/03/18 08/03/18 05:19 07:43 07:43 WBC RBC 2.67 L Hgb 8.3 L Hct 24.9 L MCV MCH MCHC RDW 15.6 H Lymph % (Auto) Seg Neutrophils % Seg Neuts % (Manual) Lymphocytes % (Manual) Seg Neutrophils # Seg Neutrophils # Man Lymphocytes # (Manual) APTT POC ABG pCO2 POC ABG pO2 Sodium 134 L Potassium Chloride 89.7 L BUN 52 H Creatinine 5.9 H Glucose 180 H POC Glucose 212 H Magnesium ALT Albumin 08/03/18 08/03/18 08/04/18 12:32 23:42 05:42 WBC RBC Hgb Hct MCV MCH MCHC RDW Lymph % (Auto) Seg Neutrophils % Seg Neuts % (Manual) Lymphocytes % (Manual) Seg Neutrophils # Seg Neutrophils # Man Lymphocytes # (Manual) APTT POC ABG pCO2 POC ABG pO2 Sodium Potassium Chloride BUN Creatinine Glucose POC Glucose 223 H 139 H 151 H Magnesium ALT Albumin 08/04/18 08/04/18 08/04/18 12:11 17:12 20:55 WBC RBC Hgb Hct MCV MCH MCHC RDW Lymph % (Auto) Seg Neutrophils % Seg Neuts % (Manual) Lymphocytes % (Manual) Seg Neutrophils # Seg Neutrophils # Man Lymphocytes # (Manual) APTT POC ABG pCO2 POC ABG pO2 Sodium Potassium Chloride BUN Creatinine Glucose POC Glucose 193 H 137 H 175 H Magnesium ALT Albumin 08/04/18 08/05/18 08/05/18 23:23 05:55 12:03 WBC RBC Hgb Hct MCV MCH MCHC RDW Lymph % (Auto) Seg Neutrophils % Seg Neuts % (Manual) Lymphocytes % (Manual) Seg Neutrophils # Seg Neutrophils # Man Lymphocytes # (Manual) APTT POC ABG pCO2 POC ABG pO2 Sodium Potassium Chloride BUN Creatinine Glucose POC Glucose 165 H 135 H 158 H Magnesium ALT Albumin 08/05/18 08/06/18 08/06/18 23:42 06:05 10:25 WBC 11.8 H RBC 2.61 L Hgb 8.2 L Hct 24.9 L MCV MCH MCHC RDW 15.8 H Lymph % (Auto) Seg Neutrophils % Seg Neuts % (Manual) Lymphocytes % (Manual) Seg Neutrophils # Seg Neutrophils # Man Lymphocytes # (Manual) APTT POC ABG pCO2 POC ABG pO2 Sodium Potassium Chloride BUN Creatinine Glucose POC Glucose 120 H 196 H Magnesium ALT Albumin 08/06/18 08/06/18 08/06/18 10:25 12:31 17:26 WBC RBC Hgb Hct MCV MCH MCHC RDW Lymph % (Auto) Seg Neutrophils % Seg Neuts % (Manual) Lymphocytes % (Manual) Seg Neutrophils # Seg Neutrophils # Man Lymphocytes # (Manual) APTT POC ABG pCO2 POC ABG pO2 Sodium 136 L Potassium 3.3 L D Chloride 93.2 L BUN 32 H Creatinine 4.5 H Glucose 134 H POC Glucose 184 H 174 H Magnesium ALT Albumin 08/07/18 08/07/18 08/07/18 00:32 05:47 11:53 WBC RBC Hgb Hct MCV MCH MCHC RDW Lymph % (Auto) Seg Neutrophils % Seg Neuts % (Manual) Lymphocytes % (Manual) Seg Neutrophils # Seg Neutrophils # Man Lymphocytes # (Manual) APTT POC ABG pCO2 POC ABG pO2 Sodium Potassium Chloride BUN Creatinine Glucose POC Glucose 190 H 203 H 161 H Magnesium ALT Albumin 08/07/18 08/08/18 08/08/18 16:39 00:49 06:41 WBC RBC Hgb Hct MCV MCH MCHC RDW Lymph % (Auto) Seg Neutrophils % Seg Neuts % (Manual) Lymphocytes % (Manual) Seg Neutrophils # Seg Neutrophils # Man Lymphocytes # (Manual) APTT POC ABG pCO2 POC ABG pO2 Sodium Potassium Chloride BUN Creatinine Glucose POC Glucose 217 H 186 H 167 H Magnesium ALT Albumin Allied health notes reviewed: nursing
[2018-08-09] MEDS ORDERED: ZOSYN/NS 4.5GM/100ML 4.5 GM/100 ML VIAL IV SCH
[2018-08-09] MEDS: IMODIUM PO SCH ×4 (00:25→19:37)
[2018-08-09] MEDS: HumaLOG SUB-Q SCH ×4 (00:45→18:00)
--- NOTE | 2018-08-09 01:12 | Progress Note ---
Assessment and Plan / Acute on chronic respiratory failure with hypoxia Sec to improper or delayed suctioning at [facility] Daughter wants a different SNF Patient has been optimized to a large extent and discharged on Jul 29. Continue scheduled breathing treatments, t-tube suction given Antibiotics for possible aspiration pneumonitis / ESRD needing dialysis COnt HD per renal Nephrology consulted / IDDM (insulin dependent diabetes mellitus) Cont SS Coverage with T feeding diet / HTN (hypertension) Cont antihypertensives / GERD (gastroesophageal reflux disease) Cont PPI's /sacral ulcer stage -3, POA - wound care following, on wound vac - Dr mckeon following, placed on rectal tube for better healing /DVT prophylaxis, placed on heparin - Other chronic medical problems History of cardiac arrest Anoxic encephalopathy with chronic vegetative state History of Bradycardia arrhythmia, status post pacemaker hx of multiple cva hx of endocarditis Anemia of chronic disease History of mitral valves disease Disposition: daughter did not want the same facility for discharge. But no other place will accept her. I spoke with the daughter today, she is now willing to d/c the patient to prior NH. Patient will need order for wound vac. Possible d/c tomorrow. Brief History: 58-year-old female with a history of CVA status post trach and pain, end-stage renal disease on dialysis, chronic vegetative state presented from sleep with a chief complaint of hypoxia. Patient was Was recently discharged from this facility on Jul 29 after a stay of 11 days after being treated for multiple problems including Sepsis, aspiration pneumonia, Encephalopathy, and Resp failure, ESRD. Patient was sent from [facility] again on 08/01/18 for Low O2 sats which Improved to 100 percent after proper suctioning. Daughter feels that her mother is not being suctioned properly, requested placement to different facility, but no other acceptance. Hospitalist Physical exam: GENERAL: Aphasic -[place] female lying on bed appeared to be in no discomfort. HEENT: Normocephalic. Atraumatic. No conjunctival congestion or icterus. Patient has moist mucous membranes. NECK: Supple. Trachea midline with trach in place CHEST/LUNGS: Coarse breath sounds auscultated bilaterally, breathing with T piece. No wheezes crackles or rhonchi. HEART/CARDIOVASCULAR: Regular in rate and rhythm. S1 and S2 positive. ABDOMEN: Abdomen is soft, nontender. Patient has normal bowel sounds. PEG tube in place SKIN: There is no rash. Warm and dry. NEURO: Follow minor command. Aphasic with a blank stare, moves extremities MUSCULOSKELETAL: No joint effusion or tenderness. EXTRIMITY: No edema, no cyanosis or clubbing. PSYCH: Unable to assess Subjective Date of service: 08/08/18 Principal diagnosis: Ac on Ch hypoxemic Resp failure; Diabetes type II; ESRD on dialysis (M/W/F) Interval history: Patient seen and examined. Medical records and medication list reviewed. No acute event overnight noted by the RN. Patient is aphasic but following commend discharge pending on placement Objective - Constitutional Vitals: Vital Signs - 12hr 08/08/18 08/08/18 08/08/18 14:00 16:44 16:45 Temperature 97.8 F Pulse Rate 96 H Pulse Rate [ 95 H Anterior Bilateral Throughout] Pulse Rate [ Posterior Bilateral Throughout] Respiratory 18 Rate Respiratory 18 Rate [Anterior Bilateral Throughout] Respiratory Rate [Posterior Bilateral Throughout] Blood Pressure 98/45 Blood Pressure [Right] O2 Sat by Pulse 100 Oximetry O2 Sat by Pulse 100 Oximetry [ Assessment] 08/08/18 08/08/18 08/08/18 17:26 19:27 20:50 Temperature 102.4 F H Pulse Rate 97 H Pulse Rate [ Anterior Bilateral Throughout] Pulse Rate [ 96 H Posterior Bilateral Throughout] Respiratory 18 Rate Respiratory Rate [Anterior Bilateral Throughout] Respiratory 18 Rate [Posterior Bilateral Throughout] Blood Pressure 107/45 Blood Pressure [Right] O2 Sat by Pulse 100 100 Oximetry O2 Sat by Pulse Oximetry [ Assessment] 08/08/18 08/08/18 08/08/18 20:51 20:56 22:00 Temperature Pulse Rate 97 H Pulse Rate [ Anterior Bilateral Throughout] Pulse Rate [ 98 H Posterior Bilateral Throughout] Respiratory Rate Respiratory Rate [Anterior Bilateral Throughout] Respiratory 18 Rate [Posterior Bilateral Throughout] Blood Pressure 107/45 Blood Pressure [Right] O2 Sat by Pulse 100 Oximetry O2 Sat by Pulse 100 Oximetry [ Assessment] 08/08/18 08/09/18 23:25 00:00 Temperature 99.8 F H Pulse Rate 93 H 97 H Pulse Rate [ Anterior Bilateral Throughout] Pulse Rate [ Posterior Bilateral Throughout] Respiratory 20 Rate Respiratory Rate [Anterior Bilateral Throughout] Respiratory Rate [Posterior Bilateral Throughout] Blood Pressure Blood Pressure 92/39 [Right] O2 Sat by Pulse 100 98 Oximetry O2 Sat by Pulse Oximetry [ Assessment] - Labs CBC & Chem 7: 08/06/18 10:25 08/06/18 10:25 Labs: Abnormal lab results 08/08/18 08/08/18 08/08/18 Range/Units 00:49 06:41 13:09 POC Glucose 186 H 167 H 224 H (70-105) 08/08/18 08/09/18 Range/Units 16:49 00:02 POC Glucose 212 H 188 H (70-105)
[2018-08-09 06:10] LABS: Basophils % (Auto) 0.4 % (0.0-1.8); Eosinophils # (Auto) 0.1 K/mm3 (0.0-0.4); Eosinophils % (Auto) 0.7 % (0.0-4.3); Hematocrit 27.1 % (30.3-42.9); Hemoglobin 9.3 gm/dl (10.1-14.3); Lymphocytes % (Auto) 10.1 % (13.4-35.0); Mean Corpuscular HGB Conc 34 % (30-34); Mean Corpuscular Volume 93 fl (79-97); Monocytes # (Auto) 0.5 K/mm3 (0.0-0.8); Monocytes % (Auto) 5.2 % (0.0-7.3); Platelet Count 343 K/mm3 (140-440); Red Blood Count 2.93 M/mm3 (3.65-5.03); Red Cell Distribution Width 15.7 % (13.2-15.2)
[2018-08-09] MEDS: HEPARIN SUB-Q SCH ×3 (06:10→22:55)
[2018-08-09 06:35] LABS: Calcium 8.7 mg/dL (8.4-10.2)
[2018-08-09] MEDS: DUONEB *Not for PRN Use IH SCH ×3 (09:16→20:51)
--- NOTE | 2018-08-09 09:57 | Progress Note ---
Assessment and Plan Acute on Chronic hypoxemic respiratory failure Acute on Chronic Encephalopathy (Toxic / Metabolic / Anoxic) Diabetes type II End-stage renal disease, on dialysis Wednesday, Wednesday and Wednesday Cardiomyopathy (S/P AICD implantation) Anemia of chronic disease Leukocytosis Adult failure to thrive s/p trachesotomy Oropharyngeal dysphagia (s/p PEG) S/p PPM for sinus arrest s/p Mitral valve repair h/o Mitral Valve SBE Atrial Fibrillation (Paroxysmal) -Continue ATP -Trach care, airway clearance, secretion management - PT/OT as tolerated -VTE and Stress ulcer prophylaxis - enteric feedings as tolerated - accucheck with glycemic control. Target blood glucose of 140-180mg/dL - monitor closely for hypoglycemia - bronchodilators with pulmonary hygiene per RT - Wean supplemental oxygen for O2 sats > 90% - supportive HD/UF for toxin and volume clearance - CXR and ABG as indicated -continue wound care and wound vac -discharge planning Subjective Date of service: 08/09/18 Principal diagnosis: Ac on Ch hypoxemic Resp failure; Diabetes type II; ESRD on dialysis (M/W/F) Interval history: Patient is seen today for: Acute on Chronic hypoxemic respiratory failure; Acute Encephalopathy (Toxic / Metabolic / Anoxic); Diabetes type II; End-stage renal disease (M/W/F) Seen and examined at bedside; 24hour events reviewed; nursing and respiratory care staff consulted; no adverse overnight events reported to me; resting peacefully in bed; remains on T-piece Objective Vital Signs - 12hr 08/08/18 08/08/18 08/09/18 22:00 23:25 00:00 Temperature 99.8 F H Pulse Rate 97 H 93 H 97 H Pulse Rate [ 97 H Apical] Pulse Rate [ 97 H From Monitor] Pulse Rate [ Posterior Bilateral Throughout] Pulse Rate [ 99 H Right Radial] Respiratory 18 20 Rate Respiratory Rate [Posterior Bilateral Throughout] Blood Pressure 107/45 Blood Pressure 92/39 [Right] O2 Sat by Pulse 99 100 98 Oximetry O2 Sat by Pulse Oximetry [ Assessment] 08/09/18 08/09/18 08/09/18 03:28 06:22 08:00 Temperature 99.7 F H Pulse Rate 101 H Pulse Rate [ Apical] Pulse Rate [ From Monitor] Pulse Rate [ 96 H Posterior Bilateral Throughout] Pulse Rate [ Right Radial] Respiratory 22 Rate Respiratory 18 Rate [Posterior Bilateral Throughout] Blood Pressure 76/27 Blood Pressure 87/49 [Right] O2 Sat by Pulse Oximetry O2 Sat by Pulse 99 Oximetry [ Assessment] 08/09/18 08/09/18 08:12 09:23 Temperature 99.1 F Pulse Rate 82 Pulse Rate [ Apical] Pulse Rate [ From Monitor] Pulse Rate [ Posterior Bilateral Throughout] Pulse Rate [ Right Radial] Respiratory 18 Rate Respiratory Rate [Posterior Bilateral Throughout] Blood Pressure 94/28 Blood Pressure [Right] O2 Sat by Pulse 94 99 Oximetry O2 Sat by Pulse Oximetry [ Assessment] Constitutional: alert, appears uncomfortable, other (middle aged AAF, normocephalic with mildly increased respiratory effort on t-piece) Eyes: non-icteric ENT: oropharynx moist Neck: supple, no lymphadenopathy, no JVD, other (+ midline tracheostomy tube) Effort: mildly labored Ascultation: Bilateral: diminished breath sounds, rhonchi Percussion: Bilateral: not dull Cardiovascular: regular rate and rhythm, murmur noted (s1,S2, systolic murmur) Gastrointestinal: normoactive bowel sounds, soft, non-tender, non-distended, other (PEG in place) Integumentary: rash Extremities: no cyanosis, no edema, pulses normal, no ischemia or petechiae Neurologic: pupils equal and round, other (not obeying commands to adequately assess) Psychiatric: other (flat affect) CBC and BMP: 08/09/18 05:35 08/09/18 05:35 ABG, PT/INR, D-dimer: ABG POC ABG pH 7.403 (7.35-7.45) 08/02/18 09:07 POC ABG pCO2 43.2 (35-45) 08/02/18 09:07 POC ABG pO2 125 (80-105) H 08/02/18 09:07 POC ABG HCO3 26.9 08/02/18 09:07 POC ABG Total CO2 28 08/02/18 09:07 POC ABG O2 Sat 99 08/02/18 09:07 PT/INR, D-dimer PT 14.4 Sec. (12.2-14.9) 08/01/18 11:30 INR 1.05 (0.87-1.13) 08/01/18 11:30 Abnormal lab findings: Abnormal Labs 02/08/01/18 08/01/18 11:30 11:30 11:30 WBC 13.7 H RBC 2.81 L Hgb 8.9 L Hct 27.4 L MCV 98 H MCH MCHC RDW 16.0 H Lymph % (Auto) 10.1 L Lymph # Seg Neutrophils % 84.3 H Seg Neuts % (Manual) Lymphocytes % (Manual) Seg Neutrophils # 11.6 H Seg Neutrophils # Man Lymphocytes # (Manual) APTT 23.5 L POC ABG pCO2 POC ABG pO2 Sodium 133 L Potassium Chloride 89.8 L BUN 78 H Creatinine 8.7 H D Glucose 177 H POC Glucose Magnesium ALT Albumin 08/01/18 08/01/18 08/02/18 18:38 19:56 09:07 WBC RBC Hgb Hct MCV MCH MCHC RDW Lymph % (Auto) Lymph # Seg Neutrophils % Seg Neuts % (Manual) Lymphocytes % (Manual) Seg Neutrophils # Seg Neutrophils # Man Lymphocytes # (Manual) APTT POC ABG pCO2 48.2 H POC ABG pO2 146 H 125 H Sodium Potassium Chloride BUN Creatinine Glucose POC Glucose Magnesium 2.80 H ALT Albumin 08/02/18 08/02/18 08/02/18 16:22 16:22 17:21 WBC RBC 2.42 L Hgb 8.1 L Hct 22.8 L MCV MCH 34 H MCHC 36 H RDW 15.7 H Lymph % (Auto) Lymph # Seg Neutrophils % Seg Neuts % (Manual) 94.0 H Lymphocytes % (Manual) 6.0 L Seg Neutrophils # Seg Neutrophils # Man 9.9 H Lymphocytes # (Manual) 0.6 L APTT POC ABG pCO2 POC ABG pO2 Sodium 134 L Potassium Chloride 90.7 L BUN 38 H Creatinine 4.8 H Glucose 175 H POC Glucose 191 H Magnesium ALT < 5 L Albumin 2.9 L 08/03/18 08/03/18 08/03/18 05:19 07:43 07:43 WBC RBC 2.67 L Hgb 8.3 L Hct 24.9 L MCV MCH MCHC RDW 15.6 H Lymph % (Auto) Lymph # Seg Neutrophils % Seg Neuts % (Manual) Lymphocytes % (Manual) Seg Neutrophils # Seg Neutrophils # Man Lymphocytes # (Manual) APTT POC ABG pCO2 POC ABG pO2 Sodium 134 L Potassium Chloride 89.7 L BUN 52 H Creatinine 5.9 H Glucose 180 H POC Glucose 212 H Magnesium ALT Albumin 08/03/18 08/03/18 08/04/18 12:32 23:42 05:42 WBC RBC Hgb Hct MCV MCH MCHC RDW Lymph % (Auto) Lymph # Seg Neutrophils % Seg Neuts % (Manual) Lymphocytes % (Manual) Seg Neutrophils # Seg Neutrophils # Man Lymphocytes # (Manual) APTT POC ABG pCO2 POC ABG pO2 Sodium Potassium Chloride BUN Creatinine Glucose POC Glucose 223 H 139 H 151 H Magnesium ALT Albumin 08/04/18 08/04/18 08/04/18 12:11 17:12 20:55 WBC RBC Hgb Hct MCV MCH MCHC RDW Lymph % (Auto) Lymph # Seg Neutrophils % Seg Neuts % (Manual) Lymphocytes % (Manual) Seg Neutrophils # Seg Neutrophils # Man Lymphocytes # (Manual) APTT POC ABG pCO2 POC ABG pO2 Sodium Potassium Chloride BUN Creatinine Glucose POC Glucose 193 H 137 H 175 H Magnesium ALT Albumin 08/04/18 08/05/18 08/05/18 23:23 05:55 12:03 WBC RBC Hgb Hct MCV MCH MCHC RDW Lymph % (Auto) Lymph # Seg Neutrophils % Seg Neuts % (Manual) Lymphocytes % (Manual) Seg Neutrophils # Seg Neutrophils # Man Lymphocytes # (Manual) APTT POC ABG pCO2 POC ABG pO2 Sodium Potassium Chloride BUN Creatinine Glucose POC Glucose 165 H 135 H 158 H Magnesium ALT Albumin 08/05/18 08/06/18 08/06/18 23:42 06:05 10:25 WBC 11.8 H RBC 2.61 L Hgb 8.2 L Hct 24.9 L MCV MCH MCHC RDW 15.8 H Lymph % (Auto) Lymph # Seg Neutrophils % Seg Neuts % (Manual) Lymphocytes % (Manual) Seg Neutrophils # Seg Neutrophils # Man Lymphocytes # (Manual) APTT POC ABG pCO2 POC ABG pO2 Sodium Potassium Chloride BUN Creatinine Glucose POC Glucose 120 H 196 H Magnesium ALT Albumin 08/06/18 08/06/18 08/06/18 10:25 12:31 17:26 WBC RBC Hgb Hct MCV MCH MCHC RDW Lymph % (Auto) Lymph # Seg Neutrophils % Seg Neuts % (Manual) Lymphocytes % (Manual) Seg Neutrophils # Seg Neutrophils # Man Lymphocytes # (Manual) APTT POC ABG pCO2 POC ABG pO2 Sodium 136 L Potassium 3.3 L D Chloride 93.2 L BUN 32 H Creatinine 4.5 H Glucose 134 H POC Glucose 184 H 174 H Magnesium ALT Albumin 08/07/18 08/07/18 08/07/18 00:32 05:47 11:53 WBC RBC Hgb Hct MCV MCH MCHC RDW Lymph % (Auto) Lymph # Seg Neutrophils % Seg Neuts % (Manual) Lymphocytes % (Manual) Seg Neutrophils # Seg Neutrophils # Man Lymphocytes # (Manual) APTT POC ABG pCO2 POC ABG pO2 Sodium Potassium Chloride BUN Creatinine Glucose POC Glucose 190 H 203 H 161 H Magnesium ALT Albumin 08/07/18 08/08/18 08/08/18 16:39 00:49 06:41 WBC RBC Hgb Hct MCV MCH MCHC RDW Lymph % (Auto) Lymph # Seg Neutrophils % Seg Neuts % (Manual) Lymphocytes % (Manual) Seg Neutrophils # Seg Neutrophils # Man Lymphocytes # (Manual) APTT POC ABG pCO2 POC ABG pO2 Sodium Potassium Chloride BUN Creatinine Glucose POC Glucose 217 H 186 H 167 H Magnesium ALT Albumin 08/08/18 08/08/18 08/09/18 13:09 16:49 00:02 WBC RBC Hgb Hct MCV MCH MCHC RDW Lymph % (Auto) Lymph # Seg Neutrophils % Seg Neuts % (Manual) Lymphocytes % (Manual) Seg Neutrophils # Seg Neutrophils # Man Lymphocytes # (Manual) APTT POC ABG pCO2 POC ABG pO2 Sodium Potassium Chloride BUN Creatinine Glucose POC Glucose 224 H 212 H 188 H Magnesium ALT Albumin 08/09/18 08/09/18 08/09/18 05:35 05:35 05:47 WBC RBC 2.93 L Hgb 9.3 L Hct 27.1 L MCV MCH MCHC RDW 15.7 H Lymph % (Auto) 10.1 L Lymph # 1.0 L Seg Neutrophils % 83.6 H Seg Neuts % (Manual) Lymphocytes % (Manual) Seg Neutrophils # 8.5 H Seg Neutrophils # Man Lymphocytes # (Manual) APTT POC ABG pCO2 POC ABG pO2 Sodium 135 L Potassium 3.3 L Chloride 93.1 L BUN 39 H Creatinine 5.3 H Glucose 172 H POC Glucose 207 H Magnesium ALT Albumin 2.0 L Allied health notes reviewed: nursing
--- NOTE | 2018-08-09 10:41 | Progress Note ---
Assessment and Plan 1. ESRD: Continue hemodialysis three times a week, MWF schedule. 2. Thrombosed left arm AVG: Vascular consulted. Angioplasty tomorrow. 3. Respiratory failure: Trached, on T-piece. 4. Anemia: Epogen with HD. 5. Hypotension: Midodrine. 6. H/o Cardiac arrest. 7. H/o CVA. 8. Anoxic encephalopathy. Await placement. Subjective Date of service: 08/09/18 Principal diagnosis: Ac on Ch hypoxemic Resp failure; Diabetes type II; ESRD on dialysis (M/W/F) Interval history: Patient was seen and examined at the bedside. Objective - Vital Signs Vital signs: Vital Signs - 12hr 08/08/18 08/09/18 08/09/18 23:25 00:00 03:28 Temperature 99.8 F H 99.7 F H Pulse Rate 93 H 97 H Pulse Rate [ Posterior Bilateral Throughout] Respiratory 20 22 Rate Respiratory Rate [Posterior Bilateral Throughout] Blood Pressure 76/27 Blood Pressure 92/39 [Right] O2 Sat by Pulse 100 98 Oximetry O2 Sat by Pulse Oximetry [ Assessment] 08/09/18 08/09/18 08/09/18 06:22 08:00 08:12 Temperature 99.1 F Pulse Rate 101 H 82 Pulse Rate [ 96 H Posterior Bilateral Throughout] Respiratory 18 Rate Respiratory 18 Rate [Posterior Bilateral Throughout] Blood Pressure 94/28 Blood Pressure 87/49 [Right] O2 Sat by Pulse 94 Oximetry O2 Sat by Pulse 99 Oximetry [ Assessment] 08/09/18 09:23 Temperature Pulse Rate Pulse Rate [ Posterior Bilateral Throughout] Respiratory Rate Respiratory Rate [Posterior Bilateral Throughout] Blood Pressure Blood Pressure [Right] O2 Sat by Pulse 99 Oximetry O2 Sat by Pulse Oximetry [ Assessment] - General Appearance General appearance: well-developed, appears stated age, other (not in distress) EENT: ATNC Neck: other (Trached, on T-piece) Respiratory: Present: Clear to Ascultation Cardiology: regular, S1S2, no murmurs Gastrointestinal: normoactive bowel sounds, no tenderness, no distended, other (PEG tube noted) Integumentary: no rash Neurologic: other (opens eyes, not following any command) Musculoskeletal: other (no edema, left arm AVG with no bruit or thrill) - Lab 08/09/18 05:35 08/09/18 05:35 Most recent lab results Calcium 8.7 mg/dL (8.4-10.2) 08/09/18 05:35 Magnesium 2.80 mg/dL (1.7-2.3) H 08/01/18 19:56 Medications & Allergies - Medications Allergies/Adverse Reactions: Allergies ondansetron Allergy (Verified 08/01/18 11:00) Anaphylaxis sulfamethoxazole [From Bactrim] Allergy (Verified 08/01/18 11:00) Anaphylaxis trimethoprim [From Bactrim] Allergy (Verified 08/01/18 11:00) Anaphylaxis vancomycin Allergy (Verified 08/01/18 11:00) Anaphylaxis Home Medications: Home Medications Medication Instructions Recorded Confirmed Last Taken Type ALBUTEROL NEB's [Proventil 0.083% 3 ml IH Q4HR 07/26/18 08/01/18 Unknown History NEBS] Metoprolol [Lopressor TAB] 25 mg PO BID tablet 07/29/18 08/01/18 Unknown Rx amLODIPine [Norvasc] 5 mg PO QDAY tablet 07/29/18 08/01/18 Unknown Rx Amiodarone HCl [Pacerone] 200 mg PO DAILY 08/01/18 08/01/18 Unknown History Aspirin [Adult Aspirin] 81 mg PO DAILY 08/01/18 08/01/18 Unknown History Carvedilol [Coreg] 12.5 mg PO BID 08/01/18 08/01/18 Unknown History Famotidine 20 mg PO DAILY 08/01/18 08/01/18 Unknown History Gabapentin [Gralise] 30 mg PO QHS 08/01/18 08/01/18 Unknown History Lispro Insulin [Humalog] 0 unit SQ TID 08/01/18 08/01/18 Unknown History Loperamide [Imodium] 2 mg PO Q6H 08/01/18 08/01/18 Unknown History Sevelamer Carbonate [Renvela] 800 mg PO TIDWM 08/01/18 08/01/18 Unknown History Zinc Sulfate 220 mg PO DAILY 08/01/18 08/01/18 Unknown History Acetaminophen [Acetaminophen TAB] 650 mg PO Q4H PRN #15 tablet 08/09/18 Unknown Rx Midodrine [Proamatine] 10 mg PO BID #60 tablet 08/09/18 Unknown Rx QUEtiapine [SEROquel] 25 mg PO BID@0800,1700 #60 tablet 08/09/18 Unknown Rx QUEtiapine [SEROquel] 50 mg PO QHS #30 tablet 08/09/18 Unknown Rx Simple Syrup 30 ml FEEDTUBE PRN PRN #30 08/09/18 Unknown Rx oral.liqd Sodium Bicarbonate 325 mg FEEDTUBE PRN PRN #30 tablet 08/09/18 Unknown Rx Active Medications: Generic Name Dose Route Start Last Admin Trade Name Freq PRN Reason Stop Dose Admin Acetaminophen 650 mg 08/01/18 19:44 08/08/18 21:10 Tylenol PO 650 mg Q4H PRN Administration Pain MILD(1-3)/Fever >100.5/CASAREZ Albuterol/Ipratropium 1 ampul 08/02/18 14:00 08/09/18 09:16 Duoneb *Not For Prn Use* IH 1 ampul TIDRT [facility] Administration Amiodarone HCl 200 mg 08/01/18 22:00 08/08/18 09:27 Cordarone PO Not Given DAILY [facility] Lipase/Protease/Amylase 1 each 08/04/18 10:24 Pancreaze 10,500 Unit FEEDTUBE PRN PRN For Clogged Feeding Tube Aspirin 81 mg 08/01/18 22:00 08/08/18 09:28 Halfprin Ec PO Not Given DAILY [facility] Epoetin B[place] 20,000 unit 08/02/18 10:41 08/02/18 12:20 Procrit SUB-Q 20,000 unit ANJANA PRN Administration hemodialysis Famotidine 20 mg 08/01/18 22:00 08/08/18 09:29 Pepcid PO Not Given DAILY [facility] Heparin Sodium (Porcine) 5,000 unit 08/03/18 14:00 08/09/18 06:10 Heparin SUB-Q 5,000 unit Q8HR SERENITY Administration Sodium Chloride 100 mls @ 999 mls/hr 08/02/18 09:40 Nacl 0.9% IV ANJANA PRN Hypotension Piperacillin Sod/Tazobactam Sod 2.25 gm in 50 mls @ 100 mls/hr 08/09/18 14:00 Zosyn/Ns 2.25 Gm/50ml IV Q8HR [facility] Insulin Human Lispro 0 unit 08/02/18 08:00 08/09/18 06:30 Humalog SUB-Q 3 unit Q6HR [facility] Administration Protocol Loperamide HCl 2 mg 08/01/18 22:00 08/09/18 06:11 Imodium PO 2 mg Q6HR [facility]EN[facility] Administration Metoprolol Tartrate 25 mg 08/01/18 22:00 08/08/18 22:00 Lopressor PO Not Given BID [facility] Quetiapine Fumarate 50 mg 08/05/18 22:00 08/08/18 21:13 Seroquel PO 50 mg QHS [facility] Administration Quetiapine Fumarate 25 mg 08/08/18 08:00 08/08/18 20:18 Seroquel PO 25 mg BID@0800,1700 [facility] Administration Sevelamer Carbonate 800 mg 08/02/18 08:00 08/08/18 20:16 Renvela PO 800 mg TIDWM [facility] Administration Simple Syrup 15 ml 08/04/18 10:24 Simple Syrup FEEDTUBE PRN PRN Hypoglycemia Simple Syrup 30 ml 08/04/18 10:24 Simple Syrup FEEDTUBE PRN PRN Hypoglycemia Sodium Bicarbonate 325 mg 08/04/18 10:24 Sodium Bicarbonate FEEDTUBE PRN PRN For Clogged Feeding Tube Sodium Chloride 10 ml 08/01/18 22:00 08/08/18 21:14 Sodium Chloride Flush Syringe 10 Ml IV 10 ml BID [facility]EN[facility] Administration Sodium Chloride 10 ml 08/01/18 19:44 Sodium Chloride Flush Syringe 10 Ml IV PRN PRN LINE FLUSH Zinc Sulfate 220 mg 08/02/18 10:00 08/08/18 09:29 Zinc Sulfate PO Not Given DAILY [facility]
[2018-08-09] MEDS: ZINC SULFATE PO SCH (10:50)
[2018-08-09] MEDS: CORDARONE PO SCH (10:54)
[2018-08-09] MEDS: RENVELA PO SCH ×3 (10:54→19:38)
[2018-08-09] MEDS: LOPRESSOR PO SCH ×2 (10:54→22:55)
[2018-08-09] MEDS: HALFPRIN EC PO SCH (10:54)
[2018-08-09] MEDS: PEPCID PO SCH (10:55)
[2018-08-09] MEDS: SODIUM CHLORIDE FLUSH SYRINGE 10 ML IV SCH ×2 (10:56→22:55)
[2018-08-09] MEDS: PROAMATINE PO SCH ×2 (11:15→22:55)
[2018-08-09] MEDS ORDERED: PANCREAZE DR 10,500 UNIT FEEDTUBE PRN (11:58)
[2018-08-09] MEDS ORDERED: SIMPLE SYRUP FEEDTUBE PRN ×2 (11:58)
[2018-08-09] MEDS ORDERED: SODIUM BICARBONATE FEEDTUBE PRN (11:58)
--- NOTE | 2018-08-09 15:20 | Progress Note ---
Assessment and Plan Assessment and plan: Patient is 58-year-old woman from [facility] with a history of CVA status post trach and PEG, ESRD on hemodialysis and Chronic vegetative state who presented with hypoxia. Patient was recently discharged from this facility on Jul 29 after 11 day stay for multiple problems including Sepsis, aspiration pneumonia, Encephalopathy, and Resp failure, ESRD. Patient was sent from [place] again on 08/01/18 for Low O2 sats which Improved to 100 percent after proper suctioning. Daughter feels that her mother is not being suctioned properly, requested placement to different facility, but no other acceptance. /Acute on chronic respiratory failure with hypoxia, Sec to improper or delayed suctioning at [place], Daughter wants a different SNF, Patient has been optimized to a large extent and discharged on Jul 29,breathing treatments, t-tube suction /Aspiration Pneumonitis, poa /ESRD needing dialysis, continue HD per renal, Nephrology consulted /IDDM (insulin dependent diabetes mellitus): Cont SS Coverage with T feeding diet /HTN (hypertension), now hypotensive, give bolus, Cont antihypertensives /GERD (gastroesophageal reflux disease), Cont PPI's /sacral ulcer stage -3, POA, - wound care following, on wound vac, Dr. Zapata following, placed on rectal tube for better healing /DVT prophylaxis, placed on heparin Disposition: continue inpatient, d/c back to [place] once wound vac arrives History Interval history: Patient was seen and examined. Follow-up on current diagnosis of Aspiration Pneumonia. Overnight uneventful. Patient denies any chest pain, shortness breath, nausea/vomiting or severe headaches. Imaging, nursing note, chart, labs and old chart reviewed. Discussed with patient. Hospitalist Physical - Physical exam Narrative exam: Gen: chronic disability, ill appearing, NAD, Awake, HEENT: NCAT, trach in place Neck: supple, no adenopathy, no thyromegaly, no JVD CVS/Heart: RRR, normal S1S2, pulses present bilaterally Chest/Lungs: CTA B, Symmetrical chest expansion, good air entry bilaterally GI/Abdomen: soft, NTND, PEG in place, good bowel sounds, no guarding or rebound /Bladder: no suprapubic tenderness, no CVA or paraspinal tenderness Extermity/Skin: no c/c/e, no obvious rash MSK: atrophic contracted legs Neuro: CN 2-12 grossly intact, no new focal deficits, doesn't follow commands Psych: calm - Constitutional Vitals: Temp Pulse Resp BP Pulse Ox 100.4 F H 99 H 20 80/35 97 08/09/18 11:09 08/09/18 11:09 08/09/18 11:09 08/09/18 11:09 08/09/18 11:09 General appearance: Present: well-nourished Results - Labs CBC & Chem 7: 08/10/18 05:12 08/10/18 05:12 Labs: Laboratory Last Values WBC 10.2 K/mm3 (4.5-11.0) 08/09/18 05:35 RBC 2.93 M/mm3 (3.65-5.03) L 08/09/18 05:35 Hgb 9.3 gm/dl (10.1-14.3) L 08/09/18 05:35 Hct 27.1 % (30.3-42.9) L 08/09/18 05:35 MCV 93 fl (79-97) 08/09/18 05:35 MCH 32 pg (28-32) 08/09/18 05:35 MCHC 34 % (30-34) 08/09/18 05:35 RDW 15.7 % (13.2-15.2) H 08/09/18 05:35 Plt Count 343 K/mm3 (140-440) 08/09/18 05:35 Lymph % (Auto) 10.1 % (13.4-35.0) L 08/09/18 05:35 Lake % (Auto) 5.2 % (0.0-7.3) 08/09/18 05:35 Eos % (Auto) 0.7 % (0.0-4.3) 08/09/18 05:35 Baso % (Auto) 0.4 % (0.0-1.8) 08/09/18 05:35 Lymph # 1.0 K/mm3 (1.2-5.4) L 08/09/18 05:35 Lake # 0.5 K/mm3 (0.0-0.8) 08/09/18 05:35 Eos # 0.1 K/mm3 (0.0-0.4) 08/09/18 05:35 Baso # 0.0 K/mm3 (0.0-0.1) 08/09/18 05:35 Add Manual Diff Complete 08/02/18 16:22 Total Counted 100 08/02/18 16:22 Seg Neutrophils % 83.6 % (40.0-70.0) H 08/09/18 05:35 Seg Neuts % (Manual) 94.0 % (40.0-70.0) H 08/02/18 16:22 Band Neutrophils % 0 % 08/02/18 16:22 Lymphocytes % (Manual) 6.0 % (13.4-35.0) L 08/02/18 16:22 Reactive Lymphs % (Man) 0 % 08/02/18 16:22 Monocytes % (Manual) 0 % (0.0-7.3) 08/02/18 16:22 Eosinophils % (Manual) 0 % (0.0-4.3) 08/02/18 16:22 Basophils % (Manual) 0 % (0.0-1.8) 08/02/18 16:22 Metamyelocytes % 0 % 08/02/18 16:22 Myelocytes % 0 % 08/02/18 16:22 Promyelocytes % 0 % 08/02/18 16:22 Blast Cells % 0 % 08/02/18 16:22 Nucleated RBC % Not Reportable 08/02/18 16:22 Seg Neutrophils # 8.5 K/mm3 (1.8-7.7) H 08/09/18 05:35 Seg Neutrophils # Man 9.9 K/mm3 (1.8-7.7) H 08/02/18 16:22 Band Neutrophils # 0.0 K/mm3 08/02/18 16:22 Lymphocytes # (Manual) 0.6 K/mm3 (1.2-5.4) L 08/02/18 16:22 Abs React Lymphs (Man) 0.0 K/mm3 08/02/18 16:22 Monocytes # (Manual) 0.0 K/mm3 (0.0-0.8) 08/02/18 16:22 Eosinophils # (Manual) 0.0 K/mm3 (0.0-0.4) 08/02/18 16:22 Basophils # (Manual) 0.0 K/mm3 (0.0-0.1) 08/02/18 16:22 Metamyelocytes # 0.0 K/mm3 08/02/18 16:22 Myelocytes # 0.0 K/mm3 08/02/18 16:22 Promyelocytes # 0.0 K/mm3 08/02/18 16:22 Blast Cells # 0.0 K/mm3 08/02/18 16:22 WBC Morphology Not Reportable 08/02/18 16:22 Hypersegmented Neuts Not Reportable 08/02/18 16:22 Hyposegmented Neuts Not Reportable 08/02/18 16:22 Hypogranular Neuts Not Reportable 08/02/18 16:22 Smudge Cells Not Reportable 08/02/18 16:22 Toxic Granulation Not Reportable 08/02/18 16:22 Toxic Vacuolation Not Reportable 08/02/18 16:22 Dohle Bodies Not Reportable 08/02/18 16:22 Pelger-Huet Anomaly Not Reportable 08/02/18 16:22 Evelina Rods Not Reportable 08/02/18 16:22 Platelet Estimate Consistent w auto 08/02/18 16:22 Clumped Platelets Not Reportable 08/02/18 16:22 Plt Clumps, EDTA Not Reportable 08/02/18 16:22 Large Platelets 1+ 08/02/18 16:22 Giant Platelets Not Reportable 08/02/18 16:22 Platelet Satelliting Not Reportable 08/02/18 16:22 Plt Morphology Comment Not Reportable 08/02/18 16:22 RBC Morphology Not Reportable 08/02/18 16:22 Dimorphic RBCs Not Reportable 08/02/18 16:22 Polychromasia Not Reportable 08/02/18 16:22 Hypochromasia 1+ 08/02/18 16:22 Poikilocytosis Not Reportable 08/02/18 16:22 Anisocytosis 1+ 08/02/18 16:22 Microcytosis Not Reportable 08/02/18 16:22 Macrocytosis Not Reportable 08/02/18 16:22 Spherocytes Not Reportable 08/02/18 16:22 Pappenheimer Bodies Not Reportable 08/02/18 16:22 Sickle Cells Not Reportable 08/02/18 16:22 Target Cells Not Reportable 08/02/18 16:22 Tear Drop Cells Not Reportable 08/02/18 16:22 Ovalocytes Not Reportable 08/02/18 16:22 Helmet Cells Not Reportable 08/02/18 16:22 [place] Bodies Not Reportable 08/02/18 16:22 Hershey Rings Not Reportable 08/02/18 16:22 Hurley Cells Not Reportable 08/02/18 16:22 Bite Cells Not Reportable 08/02/18 16:22 Crenated Cell Not Reportable 08/02/18 16:22 Elliptocytes Not Reportable 08/02/18 16:22 Acanthocytes (Spur) Not Reportable 08/02/18 16:22 Rouleaux Not Reportable 08/02/18 16:22 Hemoglobin C Crystals Not Reportable 08/02/18 16:22 Schistocytes Not Reportable 08/02/18 16:22 Malaria parasites Not Reportable 08/02/18 16:22 Abraham Bodies Not Reportable 08/02/18 16:22 Hem Pathologist Commnt No 08/02/18 16:22 PT 14.4 Sec. (12.2-14.9) 08/01/18 11:30 INR 1.05 (0.87-1.13) 08/01/18 11:30 APTT 23.5 Sec. (24.2-36.6) L 08/01/18 11:30 POC ABG pH 7.403 (7.35-7.45) 08/02/18 09:07 POC ABG pCO2 43.2 (35-45) 08/02/18 09:07 POC ABG pO2 125 (80-105) H 08/02/18 09:07 POC ABG HCO3 26.9 08/02/18 09:07 POC ABG Total CO2 28 08/02/18 09:07 POC ABG O2 Sat 99 08/02/18 09:07 POC ABG Base Excess 2 08/02/18 09:07 FiO2 30 % 08/02/18 09:07 Sodium 135 mmol/L (137-145) L 08/09/18 05:35 Potassium 3.3 mmol/L (3.6-5.0) L 08/09/18 05:35 Chloride 93.1 mmol/L (98-107) L 08/09/18 05:35 Carbon Dioxide 26 mmol/L (22-30) 08/09/18 05:35 Anion Gap 19 mmol/L 08/09/18 05:35 BUN 39 mg/dL (7-17) H 08/09/18 05:35 Creatinine 5.3 mg/dL (0.7-1.2) H 08/09/18 05:35 Estimated GFR 10 ml/min 08/09/18 05:35 BUN/Creatinine Ratio 7 % 08/09/18 05:35 Glucose 172 mg/dL (65-100) H 08/09/18 05:35 POC Glucose 272 (70-105) H 08/09/18 11:56 Hemoglobin A1c 5.3 % (4-6) 08/01/18 19:56 Calcium 8.7 mg/dL (8.4-10.2) 08/09/18 05:35 Magnesium 2.80 mg/dL (1.7-2.3) H 08/01/18 19:56 Total Bilirubin 0.30 mg/dL (0.1-1.2) 08/09/18 05:35 AST 18 units/L (5-40) 08/09/18 05:35 ALT 11 units/L (7-56) 08/09/18 05:35 Alkaline Phosphatase 101 units/L (35-129) 08/09/18 05:35 Total Protein 6.4 g/dL (6.3-8.2) 08/09/18 05:35 Albumin 2.0 g/dL (3.9-5) L 08/09/18 05:35 Albumin/Globulin Ratio 0.5 % 08/09/18 05:35 Prealbumin 0.277 g/L (0.200-0.400) 08/01/18 19:56 Nutrition/Malnutrition Assess - Dietary Evaluation Nutrition/Malnutrition Findings: Nutrition Notes Start: 08/02/18 16:33 Freq: Status: Active Protocol: Document 08/09/18 11:10 KH (Rec: 08/09/18 12:00 [email or web address]) Co-Sign 08/09/18 11:10 OL Nutrition Notes Initial or Follow up Reassessment Current Diagnosis CKD (stage V CKD) Diabetes Hypertension Respiratory Failure Other Pertinent Diagnosis ESRD on HD Current Diet Nepro at 40mL/hr Labs/Tests Glu: 207 Pertinent Medications Reviewed Height 5 ft 6 in Weight 94.9 kg [place] Body Weight (kg) 59.09 BMI 33.7 Weight change and time frame Wt. change anticipated due to dialysis Weight Status Morbidly Obese Subjective/Other Information Pt. f/u for stable TF. Observed Nepro infusing at 40 ml/hr. Per pt nurse, night nurse cut TF off for unknown time period due to residuals. However, RN checked residuals around 07:00 today and they were 0. Burn Absent Trauma Absent #1 Nutrition Diagnosis Inadequate oral intake Diagnosis Progress(for reassessment Continues documentation) Is patient on ventilator? No Is Patient Ambulatory and/or Out of Bed No REE-(Dickerson-St. Jeor-confined to bed) 1865.232 Kcal/Kg value to use for calculation 17 Approximate Energy Requirements Using 1613 kcal/Kg Additional Notes Protein needs: 89-96g (1.2-1. 3g/kg AdjBW) AdjBW: 74kg Fluid: 1 L or per MD Nutrition Intervention Nutrition Support: Nepro at 40mL/hr with 50mL flush q4h or per MD Kcal 1,728 Protein (gm) 78 Fluid (mL) 698 Goal #1 TF to continue to meet at least 75% of energy and protein needs Anticipated Discharge Needs: Nepro at 40mL/hr with 50mL flush q4h or per MD order Follow-Up By: 08/16/18 Additional Comments F/u: stable TF
[2018-08-09] MEDS ORDERED: NACL 0.9% 500 ML 500 ML IV ONE (15:27)
--- NOTE | 2018-08-09 15:27 | Discharge Summary ---
Providers - Providers Date of Admission: 08/01/18 19:44 Date of discharge: 08/09/18 Attending physician: GABRIEL CHENG 08/01/18 19:47 Consult to Dietitian/Nutrition [CONS] Routine Physician Instructions: Reason For Exam: peg tube feeding Reason for Consult: Write/Manage Tube Feeding Reason for Consult: Write/Manage Tube Feeding 08/02/18 07:02 Consult to Case Management [CONS] Routine Services Needed at Discharge: Home Health Services [employer] Notified:: case management Additional Physician Instructions: Needs a different SNF No proper suctioning done at the present facility Consult to Physician [CONS] Routine Comment: Consulting Provider: FLORIDA PARKS Physician Instructions: Reason For Exam: ESRD 08/02/18 07:05 Consult to Physician [CONS] Routine Comment: Consulting Provider: EDIN DE LA FUENTE Physician Instructions: Reason For Exam: Desaturation sec to improper suctioning 08/02/18 10:54 Physical Therapy Evaluation and Treat [CONS] Routine Comment: Reason For Exam: Debility 08/02/18 11:56 Consult to Wound/ET Nurse [CONS] Routine Reason For Exam: wound eval 08/03/18 13:51 Consult to Physician [CONS] Urgent Comment: Consulting Provider: ADRIANO CAIN Physician Instructions: PLEASE EVALUATE SACRAL WOUND. Reason For Exam: DEBRIDEMENT 08/08/18 16:30 Consult to Case Management [CONS] Routine Services Needed at Discharge: Wound Vac Notified:: cm notified 08/09/18 11:53 Consult to Interventional Radiology [CONS] Routine Consulting Provider: DALIA ESCALANTE Reason For Exam: Clotted hemodialysis access. Place consult to:: Dr. 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 Patient was recently discharged from this facility on Jul 29 after 11 day stay for multiple problems including Sepsis, aspiration pneumonia, Encephalopathy, and Resp failure, ESRD. Patient was sent from [place] again on 08/01/18 for Low O2 sats which Improved to 100% after proper suctioning. Daughter felt that her mother is not being suctioned properly, requested placement to different facility, but no other acceptance. /HD access malfunction, thrombosed s/p thromboectomy: going for perm-a-cath today /Acute on chronic respiratory failure with hypoxia, Sec to improper or delayed suctioning at [place], Daughter wants a different SNF, Patient has been optimized to a large extent and discharged on Jul 29,breathing treatments, t-tube suction /Aspiration Pneumonitis with Sepsis, poa: continue abx, ID is following /Sepsis poa, GPC bacteremia +/- infected stage IV sacral decubitus +/- HAP: on Abx, ID managing /HAP: Sputum 08/01/2018 Pseudomonas sens to zosyn. ID following, CXR initial 08/01 neg. Repeat CXR 08/09 patchy bibasilar infiltrates. Patient started on zyvox and zosyn. /ESRD needing dialysis, continue HD per renal, Nephrology consulted /IDDM (insulin dependent diabetes mellitus): continue sliding scale coverage with T-feeding diet /HTN (hypertension), now hypotensive, give bolus, continue antihypertensives /GERD (gastroesophageal reflux disease), Cont PPI's /Large sacral decubitus with wound VAC, poa. She is known to have stage IV sacral decubitus since first admission treated medically: s/p Debridement of necrotic SQ tissue, fascia and muscle from stage 4 sacral pressure ulcer 08/11/18. ID ordered CT abd/pelvis which showed no abscess/osteomyelitis. /DVT prophylaxis, placed on heparin Disposition: continue inpatient, d/c back to [place] today if HD ok d/w Daughter Carolann Disposition: DC/[place]-03 SNF W [facility] CERT Time spent for discharge: 35 minutes Core Measure Documentation - Palliative Care Palliative Care/ Comfort Measures: Not Applicable - Core Measures Any of the following diagnoses?: none - VTE Discharge Requirements Deep Vein Thrombosis/Pulmonary Embolism Present on Admission: No Has pt received <5 days of overlap therapy or INR<2.0: No Anticoagulant overlap therapy prescribed at discharge: No Contraindication No Overlap Therapy order at DC: Not Indicated Exam - Physical Exam Narrative exam: Gen: chronic disability, ill appearing, NAD, Awake, HEENT: NCAT, trach in place Neck: supple, no adenopathy, no thyromegaly, no JVD CVS/Heart: RRR, normal S1S2, pulses present bilaterally Chest/Lungs: CTA B, Symmetrical chest expansion, good air entry bilaterally GI/Abdomen: soft, NTND, PEG in place, good bowel sounds, no guarding or rebound /Bladder: no suprapubic tenderness, no CVA or paraspinal tenderness Extermity/Skin: no c/c/e, no obvious rash MSK: strophic contracted legs Neuro: CN 2-12 grossly intact, no new focal deficits, doesn't follow commands Psych: calm - Constitutional Vitals: Temp Pulse Resp BP Pulse Ox 100.4 F H 99 H 20 80/35 97 08/09/18 11:09 08/09/18 11:09 08/09/18 11:09 08/09/18 11:09 08/09/18 11:09 Plan Activity: other Follow up with: JERARDO WILD MD [Primary Care Provider] - 3-5 Days
[2018-08-09] MEDS: ZOSYN/NS 2.25 GM/50ML 2.25 GM/50 ML BAG IV SCH (15:40)
--- NOTE | 2018-08-09 17:11 | XRay Report ---
FINAL REPORT EXAM: XR CHEST 1V AP HISTORY: fever TECHNIQUE: AP portable view of the chest PRIORS: CXR 07/25/2018 FINDINGS: Lines, tubes, and devices: Median sternotomy wires and a prosthetic cardiac valve are again noted. D ual lead right subclavian pacemaker is unchanged. Tracheostomy tube is again noted Lungs and pleura: Trachea is normal in position. Patchy linear markings in each lung base medially ar e stable and may be atelectasis versus infiltrates. Cardiomediastinal silhouette: Cardiac and mediastinal silhouettes are unremarkable. Right hemidiaphra gm elevation is stable. Other: Bony structures are intact. IMPRESSION: Patchy linear markings in each lung base medially are stable suggesting atelectasis versus infiltrate . No significant change
--- NOTE | 2018-08-09 18:11 | Consultation ---
History of Present Illness - Reason for Consult Consult date: 08/09/18 Clotted LUE AVG Requesting physician: FLORIDA PARKS - History of Present Illness This pt is a 58 yo AAF admitted via the ER on 08/01/18 due to increasing SOB, and congestion from Trach site. Pt was apparently recently d/c from [facility] and then readmitted. She has had a previous CVA and is unable to communicate verbally, therefore the history has been taken from the medical record. She has ESRD and is dialyzed through a left upper arm avg. It is unclear when and where this was placed. The pt last received HD yesterday by report. She was eval'd earlier today and noted to have a thrombosed avg. A vascular surgery consult was requested to further evaluate. Past History Past Medical History: anemia, diabetes, dialysis, ESRD, hypertension, stroke (h/o endarcarditis with subsequent embolic CVA) Past Surgical History: Other (trach and peg, Mitral valve surgery, LUE AVG o/w unknown) Social history: other (unknown) Family history: other (unknown) Medications and Allergies Allergies Allergy/AdvReac Type Severity Reaction Status Date / Time ondansetron Allergy Anaphylaxis Verified 08/01/18 11:00 sulfamethoxazole Allergy Anaphylaxis Verified 08/01/18 11:00 [From Bactrim] trimethoprim [From Bactrim] Allergy Anaphylaxis Verified 08/01/18 11:00 vancomycin Allergy Anaphylaxis Verified 08/01/18 11:00 Home Medications Medication Instructions Recorded Confirmed Last Taken Type ALBUTEROL NEB's [Proventil 0.083% 3 ml IH Q4HR 07/26/18 08/01/18 Unknown History NEBS] Metoprolol [Lopressor TAB] 25 mg PO BID tablet 07/29/18 08/01/18 Unknown Rx amLODIPine [Norvasc] 5 mg PO QDAY tablet 07/29/18 08/01/18 Unknown Rx Amiodarone HCl [Pacerone] 200 mg PO DAILY 08/01/18 08/01/18 Unknown History Aspirin [Adult Aspirin] 81 mg PO DAILY 08/01/18 08/01/18 Unknown History Carvedilol [Coreg] 12.5 mg PO BID 08/01/18 08/01/18 Unknown History Famotidine 20 mg PO DAILY 08/01/18 08/01/18 Unknown History Gabapentin [Gralise] 30 mg PO QHS 08/01/18 08/01/18 Unknown History Lispro Insulin [Humalog] 0 unit SQ TID 08/01/18 08/01/18 Unknown History Loperamide [Imodium] 2 mg PO Q6H 08/01/18 08/01/18 Unknown History Sevelamer Carbonate [Renvela] 800 mg PO TIDWM 08/01/18 08/01/18 Unknown History Zinc Sulfate 220 mg PO DAILY 08/01/18 08/01/18 Unknown History Acetaminophen [Acetaminophen TAB] 650 mg PO Q4H PRN #15 tablet 08/09/18 Unknown Rx Midodrine [Proamatine] 10 mg PO BID #60 tablet 08/09/18 Unknown Rx QUEtiapine [SEROquel] 25 mg PO BID@0800,1700 #60 tablet 08/09/18 Unknown Rx QUEtiapine [SEROquel] 50 mg PO QHS #30 tablet 08/09/18 Unknown Rx Simple Syrup 30 ml FEEDTUBE PRN PRN #30 08/09/18 Unknown Rx oral.liqd Sodium Bicarbonate 325 mg FEEDTUBE PRN PRN #30 tablet 08/09/18 Unknown Rx Active Meds: Active Medications Acetaminophen (Tylenol) 650 mg PO Q4H PRN PRN Reason: Pain MILD(1-3)/Fever >100.5/CASAREZ Last Admin: 08/08/18 21:10 Dose: 650 mg Documented by: Albuterol/Ipratropium (Duoneb *Not For Prn Use*) 1 ampul IH TIDRT [facility] Last Admin: 08/09/18 13:10 Dose: 1 ampul Documented by: Amiodarone HCl (Cordarone) 200 mg PO DAILY [facility] Last Admin: 08/09/18 10:54 Dose: 200 mg Documented by: Lipase/Protease/Amylase (Dominique Jerome 10,500 Unit) 1 each FEEDTUBE PRN PRN PRN Reason: For Clogged Feeding Tube Aspirin (Halfprin Ec) 81 mg PO DAILY [facility] Last Admin: 08/09/18 10:54 Dose: 81 mg Documented by: Epoetin Beka (Procrit) 20,000 unit SUB-Q ANJANA PRN PRN Reason: hemodialysis Last Admin: 08/02/18 12:20 Dose: 20,000 unit Documented by: Famotidine (Pepcid) 20 mg PO DAILY [facility] Last Admin: 08/09/18 10:55 Dose: 20 mg Documented by: Heparin Sodium (Porcine) (Heparin) 5,000 unit SUB-Q Q8HR [facility] Last Admin: 08/09/18 13:25 Dose: 5,000 unit Documented by: Sodium Chloride (Nacl 0.9%) 100 mls @ 999 mls/hr IV ANJANA PRN PRN Reason: Hypotension Piperacillin Sod/Tazobactam Sod (Zosyn/Ns 2.25 Gm/50ml) 2.25 gm in 50 mls @ 100 mls/hr IV Q8HR [facility] Last Admin: 08/09/18 15:40 Dose: 100 mls/hr Documented by: Insulin Human Lispro (Humalog) 0 unit SUB-Q Q6HR [facility]; Protocol Last Admin: 08/09/18 13:24 Dose: 3 unit Documented by: Loperamide HCl (Imodium) 2 mg PO Q6HR [facility] Last Admin: 08/09/18 11:24 Dose: 2 mg Documented by: Metoprolol Tartrate (Lopressor) 25 mg PO BID [facility] Last Admin: 08/09/18 10:54 Dose: 25 mg Documented by: Midodrine (Proamatine) 10 mg PO BID [facility] Last Admin: 08/09/18 11:15 Dose: 10 mg Documented by: Quetiapine Fumarate (Seroquel) 50 mg PO QHS [facility] Last Admin: 08/08/18 21:13 Dose: 50 mg Documented by: Quetiapine Fumarate (Seroquel) 25 mg PO BID@0800,1700 [facility] Last Admin: 08/09/18 11:26 Dose: Not Given Documented by: Sevelamer Carbonate (Renvela) 800 mg PO TIDWM [facility] Last Admin: 08/09/18 13:24 Dose: 800 mg Documented by: Simple Syrup (Simple Syrup) 15 ml FEEDTUBE PRN PRN PRN Reason: Hypoglycemia Simple Syrup (Simple Syrup) 30 ml FEEDTUBE PRN PRN PRN Reason: Hypoglycemia Sodium Bicarbonate (Sodium Bicarbonate) 325 mg FEEDTUBE PRN PRN PRN Reason: For Clogged Feeding Tube Sodium Chloride (Sodium Chloride Flush Syringe 10 Ml) 10 ml IV BID [facility] Last Admin: 08/09/18 10:56 Dose: 10 ml Documented by: Sodium Chloride (Sodium Chloride Flush Syringe 10 Ml) 10 ml IV PRN PRN PRN Reason: LINE FLUSH Zinc Sulfate (Zinc Sulfate) 220 mg PO DAILY [facility] Last Admin: 08/09/18 10:50 Dose: 220 mg Documented by: Review of Systems ROS unobtainable: due to mental status Exam - Constitutional Vitals: Temp Pulse Resp BP Pulse Ox 97.2 F L 88 18 123/39 100 08/09/18 16:22 08/09/18 16:22 08/09/18 16:22 08/09/18 16:22 08/09/18 16:22 General appearance: Present: no acute distress - Neck Neck: Present: supple - Respiratory Respiratory effort: normal - Extremities Extremities: abnormal (unable to palpate thrill in LUE AVG) - Psychiatric Psychiatric: no appropriate mood/affect, no intact judgment & insight, no record center coordinator perative Results - Labs CBC & Chem 7: 08/09/18 05:35 08/09/18 05:35 Labs: Abnormal lab results 08/09/18 08/09/18 08/09/18 Range/Units 00:02 05:35 05:35 RBC 2.93 L (3.65-5.03) M/mm3 Hgb 9.3 L (10.1-14.3) gm/dl Hct 27.1 L (30.3-42.9) % RDW 15.7 H (13.2-15.2) % Lymph % (Auto) 10.1 L (13.4-35.0) % Lymph # 1.0 L (1.2-5.4) K/mm3 Seg Neutrophils % 83.6 H (40.0-70.0) % Seg Neutrophils # 8.5 H (1.8-7.7) K/mm3 Sodium 135 L (137-145) mmol/L Potassium 3.3 L (3.6-5.0) mmol/L Chloride 93.1 L (98-107) mmol/L BUN 39 H (7-17) mg/dL Creatinine 5.3 H (0.7-1.2) mg/dL Glucose 172 H (65-100) mg/dL POC Glucose 188 H (70-105) Albumin 2.0 L (3.9-5) g/dL 08/09/18 08/09/18 Range/Units 05:47 11:56 RBC (3.65-5.03) M/mm3 Hgb (10.1-14.3) gm/dl Hct (30.3-42.9) % RDW (13.2-15.2) % Lymph % (Auto) (13.4-35.0) % Lymph # (1.2-5.4) K/mm3 Seg Neutrophils % (40.0-70.0) % Seg Neutrophils # (1.8-7.7) K/mm3 Sodium (137-145) mmol/L Potassium (3.6-5.0) mmol/L Chloride (98-107) mmol/L BUN (7-17) mg/dL Creatinine (0.7-1.2) mg/dL Glucose (65-100) mg/dL POC Glucose 207 H 272 H (70-105) Albumin (3.9-5) g/dL Assessment and Plan Pt was admitted for increasing SOB. While in prep for d/c from [facility], she was noted to have a thrombosed LUE AVG. Her d/c has been held. Will make her NPO after MN in prep for attempted declot of LUE AVG vs possible PC if AVG if not salvageable. Pt has AMS and unable to consent. Her family is not currently at the bedside. Will attempt to contact her family for consent to provide the pt with functional HD access. Addendum: Spoke with Pt's daughter. R,B,and A explained. She states understanding and agrees to the procedure. - Patient Problems (1) AV graft thrombosis Current Visit: Yes Status: Acute (2) ESRD (end stage renal disease) Current Visit: No Status: Chronic (3) GERD (gastroesophageal reflux disease) Current Visit: Yes Status: Chronic Qualifiers: Esophagitis presence: with esophagitis Qualified Code(s): K21.0 - Gastro- esophageal reflux disease with esophagitis (4) HTN (hypertension) Current Visit: Yes Status: Chronic Qualifiers: Hypertension type: essential hypertension Qualified Code(s): I10 - Essential (primary) hypertension (5) IDDM (insulin dependent diabetes mellitus) Current Visit: Yes Status: Chronic (6) Altered mental state Current Visit: No Status: Acute Qualifiers: Altered mental status type: unspecified Qualified Code(s): R41.82 - Altered mental status, unspecified (7) History of CVA (cerebrovascular accident) Current Visit: No Status: Chronic (8) S/P mitral valve repair Current Visit: No Status: Chronic (9) Status post tracheostomy Current Visit: No Status: Chronic
[2018-08-10] MEDS: HumaLOG SUB-Q SCH ×3 (00:22→22:52)
[2018-08-10] MEDS: IMODIUM PO SCH ×3 (00:32→22:52)
[2018-08-10] MEDS: ZOSYN/NS 2.25 GM/50ML 2.25 GM/50 ML BAG IV SCH ×4 (00:32→22:57)
[2018-08-10 05:53] LABS: Hematocrit 21.6 % (30.3-42.9); Hemoglobin 7.2 gm/dl (10.1-14.3); Mean Corpuscular HGB Conc 34 % (30-34); Mean Corpuscular Volume 93 fl (79-97); Platelet Count 377 K/mm3 (140-440); Red Blood Count 2.32 M/mm3 (3.65-5.03); Red Cell Distribution Width 16.1 % (13.2-15.2)
[2018-08-10] MEDS: HEPARIN SUB-Q SCH ×2 (06:25→22:54)
[2018-08-10] MEDS: DUONEB *Not for PRN Use IH SCH ×3 (08:10→21:30)
--- NOTE | 2018-08-10 10:10 | Progress Note ---
Assessment and Plan 1. ESRD: Continue hemodialysis three times a week, MWF schedule. 2. Thrombosed left arm AVG: Angioplasty today. 3. Respiratory failure: Trached, on T-piece. 4. Anemia: Epogen with HD. 5. Hypotension: Midodrine. 6. Sepsis: ID consulted. 7. H/o Cardiac arrest. 8. H/o CVA. 9. Anoxic encephalopathy. Subjective Date of service: 08/10/18 Principal diagnosis: Ac on Ch hypoxemic Resp failure; Diabetes type II; ESRD on dialysis (M/W/F) Interval history: Patient was seen and examined at the bedside. Objective - Vital Signs Vital signs: Vital Signs - 12hr 08/09/18 08/10/18 08/10/18 22:55 00:21 00:56 Temperature 98.7 F Pulse Rate 92 H 95 H Respiratory 20 Rate Blood Pressure 94/49 117/48 O2 Sat by Pulse 93 Oximetry O2 Sat by Pulse 100 Oximetry [ Assessment] 08/10/18 08/10/18 04:27 08:27 Temperature 98.0 F 98.5 F Pulse Rate 95 H 103 H Respiratory 20 20 Rate Blood Pressure 99/33 121/59 O2 Sat by Pulse 100 93 Oximetry O2 Sat by Pulse Oximetry [ Assessment] - General Appearance General appearance: well-developed, appears stated age, other (not in distress) EENT: ATNC Neck: other (Trached, on vent) Respiratory: Present: Clear to Ascultation Cardiology: regular, S1S2, no murmurs Gastrointestinal: normoactive bowel sounds, no tenderness, no distended, other (PEG tube noted) Integumentary: no rash Neurologic: other (opens eyes) Musculoskeletal: other (no edema, left arm clotted AVG) - Lab 08/10/18 05:12 08/10/18 05:12 Most recent lab results Calcium 9.0 mg/dL (8.4-10.2) 08/10/18 05:12 Magnesium 2.80 mg/dL (1.7-2.3) H 08/01/18 19:56 Medications & Allergies - Medications Allergies/Adverse Reactions: Allergies ondansetron Allergy (Verified 08/01/18 11:00) Anaphylaxis sulfamethoxazole [From Bactrim] Allergy (Verified 08/01/18 11:00) Anaphylaxis trimethoprim [From Bactrim] Allergy (Verified 08/01/18 11:00) Anaphylaxis vancomycin Allergy (Verified 08/01/18 11:00) Anaphylaxis Home Medications: Home Medications Medication Instructions Recorded Confirmed Last Taken Type ALBUTEROL NEB's [Proventil 0.083% 3 ml IH Q4HR 07/26/18 08/01/18 Unknown History NEBS] Metoprolol [Lopressor TAB] 25 mg PO BID tablet 07/29/18 08/01/18 Unknown Rx amLODIPine [Norvasc] 5 mg PO QDAY tablet 07/29/18 08/01/18 Unknown Rx Amiodarone HCl [Pacerone] 200 mg PO DAILY 08/01/18 08/01/18 Unknown History Aspirin [Adult Aspirin] 81 mg PO DAILY 08/01/18 08/01/18 Unknown History Carvedilol [Coreg] 12.5 mg PO BID 08/01/18 08/01/18 Unknown History Famotidine 20 mg PO DAILY 08/01/18 08/01/18 Unknown History Gabapentin [Gralise] 30 mg PO QHS 08/01/18 08/01/18 Unknown History Lispro Insulin [Humalog] 0 unit SQ TID 08/01/18 08/01/18 Unknown History Loperamide [Imodium] 2 mg PO Q6H 08/01/18 08/01/18 Unknown History Sevelamer Carbonate [Renvela] 800 mg PO TIDWM 08/01/18 08/01/18 Unknown History Zinc Sulfate 220 mg PO DAILY 08/01/18 08/01/18 Unknown History Acetaminophen [Acetaminophen TAB] 650 mg PO Q4H PRN #15 tablet 08/09/18 Unknown Rx Midodrine [Proamatine] 10 mg PO BID #60 tablet 08/09/18 Unknown Rx QUEtiapine [SEROquel] 25 mg PO BID@0800,1700 #60 tablet 08/09/18 Unknown Rx QUEtiapine [SEROquel] 50 mg PO QHS #30 tablet 08/09/18 Unknown Rx Simple Syrup 30 ml FEEDTUBE PRN PRN #30 08/09/18 Unknown Rx oral.liqd Sodium Bicarbonate 325 mg FEEDTUBE PRN PRN #30 tablet 08/09/18 Unknown Rx Active Medications: Generic Name Dose Route Start Last Admin Trade Name Freq PRN Reason Stop Dose Admin Acetaminophen 650 mg 08/01/18 19:44 08/08/18 21:10 Tylenol PO 650 mg Q4H PRN Administration Pain MILD(1-3)/Fever >100.5/CASAREZ Albuterol/Ipratropium 1 ampul 08/02/18 14:00 08/10/18 08:10 Duoneb *Not For Prn Use* IH 1 ampul TIDRT [facility] Administration Amiodarone HCl 200 mg 08/01/18 22:00 08/09/18 10:54 Cordarone PO 200 mg DAILY [facility] Administration Lipase/Protease/Amylase 1 each 08/04/18 10:[address] 10,500 Unit FEEDTUBE PRN PRN For Clogged Feeding Tube Aspirin 81 mg 08/01/18 22:00 08/09/18 10:54 Halfprin Ec PO 81 mg DAILY [facility] Administration Epoetin Beka 20,000 unit 08/02/18 10:41 08/02/18 12:20 Procrit SUB-Q 20,000 unit ANJANA PRN Administration hemodialysis Famotidine 20 mg 08/01/18 22:00 08/09/18 10:55 Pepcid PO 20 mg DAILY [facility] Administration Heparin Sodium (Porcine) 5,000 unit 08/03/18 14:00 08/10/18 06:25 Heparin SUB-Q Not Given Q8HR [facility] Sodium Chloride 100 mls @ 999 mls/hr 08/02/18 09:40 Nacl 0.9% IV ANJANA PRN Hypotension Piperacillin Sod/Tazobactam Sod 2.25 gm in 50 mls @ 100 mls/hr 08/09/18 14:00 08/10/18 06:27 Zosyn/Ns 2.25 Gm/50ml IV 100 mls/hr Q8HR [facility] Administration Insulin Human Lispro 0 unit 08/02/18 08:00 08/10/18 06:24 Humalog SUB-Q Not Given Q6HR [facility] Protocol Loperamide HCl 2 mg 08/01/18 22:00 08/10/18 06:26 Imodium PO Not Given Q6HR [facility] Metoprolol Tartrate 25 mg 08/01/18 22:00 08/09/18 22:55 Lopressor PO Not Given BID [facility] Midodrine 10 mg 08/09/18 11:00 08/09/18 22:55 Proamatine PO 10 mg BID [facility] Administration Quetiapine Fumarate 50 mg 08/05/18 22:00 08/09/18 23:30 Seroquel PO 50 mg QHS [facility] Administration Quetiapine Fumarate 25 mg 08/08/18 08:00 08/09/18 19:33 Seroquel PO Not Given BID@0800,1700 [facility] Sevelamer Carbonate 800 mg 08/02/18 08:00 08/09/18 19:38 Renvela PO 800 mg TIDWM [facility] Administration Simple Syrup 15 ml 08/04/18 10:24 Simple Syrup FEEDTUBE PRN PRN Hypoglycemia Simple Syrup 30 ml 08/04/18 10:24 Simple Syrup FEEDTUBE PRN PRN Hypoglycemia Sodium Bicarbonate 325 mg 08/04/18 10:24 Sodium Bicarbonate FEEDTUBE PRN PRN For Clogged Feeding Tube Sodium Chloride 10 ml 08/01/18 22:00 08/09/18 22:55 Sodium Chloride Flush Syringe 10 Ml IV 10 ml BID [facility] Administration Sodium Chloride 10 ml 08/01/18 19:44 Sodium Chloride Flush Syringe 10 Ml IV PRN PRN LINE FLUSH Zinc Sulfate 220 mg 08/02/18 10:00 08/09/18 10:50 Zinc Sulfate PO 220 mg DAILY [facility] Administration
[2018-08-10] MEDS ORDERED: HEPARIN 10,000 UNITS/10 ML ONE (10:15)
[2018-08-10] MEDS ORDERED: HEPARIN/NS 5000 UNIT/500ML(CATH LAB) 1,000 ML IR ONE (10:15)
[2018-08-10] MEDS ORDERED: NACL 0.9% 250ML 250 ML ONE (11:00)
[2018-08-10] MEDS: SUBLIMAZE ONE ×3 (11:23→12:06)
[2018-08-10] MEDS: XYLOCAINE 2% INFILTRATI ONE ×3 (11:23→12:11)
[2018-08-10] MEDS: VERSED ONE ×3 (11:23→12:06)
--- NOTE | 2018-08-10 12:50 | Operative Report ---
Operative Report Operative Report: Date of procedure: 08/10/2018 Pre-operative diagnosis: Thrombosed hemodialysis graft, end-stage renal disease Post-operative diagnosis: Same Procedure name(s): Percutaneous mechanical thrombectomy of AV graft, balloon angioplasty performed dialysis segment Surgeon: Chu Montenegro MD Production Recorder: None Anesthesia: Moderate sedation starting time 1123 termination time 1245 total moderate sedation time 82 minutes EBL: Minimal Specimen(s): None Complications: None Findings: Highly calcified thrombosed AV graft excessively reopened with thrombectomy and balloon angioplasty of the venous outflow tract at the graft to vein anastomosis. Central venous circulation patent without stenosis. Large pseudoaneurysm at the venous cannulation site. Overall quality of the graft is poor. Long-term patency outlook is suboptimal. Procedure: Patient in the supine position after adequate levels of moderate sedation was obtained the left arm was prepped and draped using standard sterile technique. Ultrasound guidance was used to obtain access to the thrombosed graft using micropuncture technique for the necessary skin. Because of the large venous cannulation site pseudoaneurysm I had some difficulty in advancing the wire through the entire shunt however ultimately was able to successfully manipulated into the central circulation. She was heparinized and then I used balloon angioplasty immediately to open up the passageway through the thrombosed vessel. I then removed the wire and advanced a Treratola thrombectomy device to the level of the venous anastomosis and then withdrew it under active phase performing a mechanical thrombectomy. This was repeated several times and contrast was injected showing residual thrombus but a patent shunt. Repeated the maneuvers several times including balloon maceration of the graft ultimately resulting in improved patency. A second sheath was then inserted after obtaining wire access to the AV graft and a retrograde fashion that is towards the arterial anastomosis again using anesthetized skin and micropuncture technique. The Trerotola device was sexually advanced through the arterial anastomosis and carefully activated on withdrawal removing the fibrous plug. The graft never developed a particularly vigorous thrill but did have a good pulse. Contrast injection showed the graft to be widely patent. Repeated balloon maceration throughout the entire graft and interrogated using duplex scan and noted the graft was functioning adequately. I then removed all guidewires catheters in each sheath was then extracted over pursestring chromic suture. Patient was returned to the preoperative holding area in stable condition with a malfunctioning access ready for cannulation.
--- NOTE | 2018-08-10 15:56 | Progress Note ---
Assessment and Plan Acute on Chronic hypoxemic respiratory failure Acute on Chronic Encephalopathy (Toxic / Metabolic / Anoxic) Diabetes type II End-stage renal disease, on dialysis Wednesday, Wednesday and Wednesday Cardiomyopathy (S/P AICD implantation) Anemia of chronic disease Leukocytosis Adult failure to thrive s/p trachesotomy Oropharyngeal dysphagia (s/p PEG) S/p PPM for sinus arrest s/p Mitral valve repair h/o Mitral Valve SBE Atrial Fibrillation (Paroxysmal) GPC bacteremia -Start Vancomycin and dose with HD fro GPC bacteremia. Follow up cultures for ID and SAMIA. Monitor hemodynamics closely Follow up blood cultures to document clearance -Continue ATP -Trach care, airway clearance, secretion management - PT/OT as tolerated -VTE and Stress ulcer prophylaxis - enteric feedings as tolerated - accucheck with glycemic control. Target blood glucose of 140-180mg/dL - Monitor closely for hypoglycemia - bronchodilators with pulmonary hygiene per RT - Wean supplemental oxygen for O2 sats > 90% - supportive HD/UF for toxin and volume clearance - CXR and ABG as indicated -continue wound care and wound vac -discharge planning Subjective Date of service: 08/10/18 Principal diagnosis: Ac on Ch hypoxemic Resp failure; Diabetes type II; ESRD on dialysis (M/W/F) Interval history: Patient is seen today for: Acute on Chronic hypoxemic respiratory failure; Acute Encephalopathy (Toxic / Metabolic / Anoxic); Diabetes type II; End-stage renal disease (M/W/F) Seen and examined at bedside; 24hour events reviewed; nursing and respiratory care staff consulted; no adverse overnight events reported to me; resting peacefully in bed; remains on T-piece Thrombosed graft, s/p percutaneous mechanical thrombectomy of AV graft, balloon angioplasty RN states called from the microbiology lab that the patient's blood cultures were positive for GPC in clusters Objective Vital Signs - 12hr 08/10/18 08/10/18 08/10/18 04:27 08:00 08:10 Temperature 98.0 F Pulse Rate 95 H Pulse Rate [ 102 H Posterior Bilateral Throughout] Respiratory 20 Rate Respiratory 20 Rate [Posterior Bilateral Throughout] Blood Pressure 99/33 O2 Sat by Pulse 100 Oximetry O2 Sat by Pulse 100 Oximetry [ Assessment] 08/10/18 08/10/18 08/10/18 08:20 08:27 10:00 Temperature 98.5 F Pulse Rate 103 H Pulse Rate [ 104 H Posterior Bilateral Throughout] Respiratory 20 18 Rate Respiratory 20 Rate [Posterior Bilateral Throughout] Blood Pressure 121/59 O2 Sat by Pulse 93 98 Oximetry O2 Sat by Pulse Oximetry [ Assessment] 08/10/18 13:30 Temperature 98.8 F Pulse Rate 102 H Pulse Rate [ Posterior Bilateral Throughout] Respiratory 16 Rate Respiratory Rate [Posterior Bilateral Throughout] Blood Pressure 127/68 O2 Sat by Pulse Oximetry O2 Sat by Pulse Oximetry [ Assessment] Constitutional: alert, appears uncomfortable, other (middle aged AAF, normocephalic with mildly increased respiratory effort on t-piece) Eyes: non-icteric ENT: oropharynx moist Neck: supple, no lymphadenopathy, no JVD, other (+ midline tracheostomy tube) Effort: mildly labored Ascultation: Bilateral: diminished breath sounds, rhonchi Percussion: Bilateral: not dull Cardiovascular: regular rate and rhythm, murmur noted (s1,S2, systolic murmur) Gastrointestinal: normoactive bowel sounds, soft, non-tender, non-distended, other (PEG in place) Integumentary: rash Extremities: no cyanosis, no edema, pulses normal, no ischemia or petechiae Neurologic: pupils equal and round, other (not obeying commands to adequately assess) Psychiatric: other (flat affect) CBC and BMP: 08/10/18 05:12 08/10/18 05:12 ABG, PT/INR, D-dimer: ABG POC ABG pH 7.403 (7.35-7.45) 08/02/18 09:07 POC ABG pCO2 43.2 (35-45) 08/02/18 09:07 POC ABG pO2 125 (80-105) H 08/02/18 09:07 POC ABG HCO3 26.9 08/02/18 09:07 POC ABG Total CO2 28 08/02/18 09:07 POC ABG O2 Sat 99 08/02/18 09:07 PT/INR, D-dimer PT 14.4 Sec. (12.2-14.9) 08/01/18 11:30 INR 1.05 (0.87-1.13) 08/01/18 11:30 Abnormal lab findings: Abnormal Labs 08/01/18 08/01/18 08/01/18 11:30 11:30 11:30 WBC 13.7 H RBC 2.81 L Hgb 8.9 L Hct 27.4 L MCV 98 H MCH MCHC RDW 16.0 H Lymph % (Auto) 10.1 L Lymph # Seg Neutrophils % 84.3 H Seg Neuts % (Manual) Lymphocytes % (Manual) Seg Neutrophils # 11.6 H Seg Neutrophils # Man Lymphocytes # (Manual) APTT 23.5 L POC ABG pCO2 POC ABG pO2 Sodium 133 L Potassium Chloride 89.8 L BUN 78 H Creatinine 8.7 H D Glucose 177 H POC Glucose Magnesium ALT Albumin 08/01/18 08/01/18 08/02/18 18:38 19:56 09:07 WBC RBC Hgb Hct MCV MCH MCHC RDW Lymph % (Auto) Lymph # Seg Neutrophils % Seg Neuts % (Manual) Lymphocytes % (Manual) Seg Neutrophils # Seg Neutrophils # Man Lymphocytes # (Manual) APTT POC ABG pCO2 48.2 H POC ABG pO2 146 H 125 H Sodium Potassium Chloride BUN Creatinine Glucose POC Glucose Magnesium 2.80 H ALT Albumin 08/02/18 08/02/18 08/02/18 16:22 16:22 17:21 WBC RBC 2.42 L Hgb 8.1 L Hct 22.8 L MCV MCH 34 H MCHC 36 H RDW 15.7 H Lymph % (Auto) Lymph # Seg Neutrophils % Seg Neuts % (Manual) 94.0 H Lymphocytes % (Manual) 6.0 L Seg Neutrophils # Seg Neutrophils # Man 9.9 H Lymphocytes # (Manual) 0.6 L APTT POC ABG pCO2 POC ABG pO2 Sodium 134 L Potassium Chloride 90.7 L BUN 38 H Creatinine 4.8 H Glucose 175 H POC Glucose 191 H Magnesium ALT < 5 L Albumin 2.9 L 08/03/18 08/03/18 08/03/18 05:19 07:43 07:43 WBC RBC 2.67 L Hgb 8.3 L Hct 24.9 L MCV MCH MCHC RDW 15.6 H Lymph % (Auto) Lymph # Seg Neutrophils % Seg Neuts % (Manual) Lymphocytes % (Manual) Seg Neutrophils # Seg Neutrophils # Man Lymphocytes # (Manual) APTT POC ABG pCO2 POC ABG pO2 Sodium 134 L Potassium Chloride 89.7 L BUN 52 H Creatinine 5.9 H Glucose 180 H POC Glucose 212 H Magnesium ALT Albumin 08/03/18 08/03/18 08/04/18 12:32 23:42 05:42 WBC RBC Hgb Hct MCV MCH MCHC RDW Lymph % (Auto) Lymph # Seg Neutrophils % Seg Neuts % (Manual) Lymphocytes % (Manual) Seg Neutrophils # Seg Neutrophils # Man Lymphocytes # (Manual) APTT POC ABG pCO2 POC ABG pO2 Sodium Potassium Chloride BUN Creatinine Glucose POC Glucose 223 H 139 H 151 H Magnesium ALT Albumin 08/04/18 08/04/18 08/04/18 12:11 17:12 20:55 WBC RBC Hgb Hct MCV MCH MCHC RDW Lymph % (Auto) Lymph # Seg Neutrophils % Seg Neuts % (Manual) Lymphocytes % (Manual) Seg Neutrophils # Seg Neutrophils # Man Lymphocytes # (Manual) APTT POC ABG pCO2 POC ABG pO2 Sodium Potassium Chloride BUN Creatinine Glucose POC Glucose 193 H 137 H 175 H Magnesium ALT Albumin 08/04/18 08/05/18 08/05/18 23:23 05:55 12:03 WBC RBC Hgb Hct MCV MCH MCHC RDW Lymph % (Auto) Lymph # Seg Neutrophils % Seg Neuts % (Manual) Lymphocytes % (Manual) Seg Neutrophils # Seg Neutrophils # Man Lymphocytes # (Manual) APTT POC ABG pCO2 POC ABG pO2 Sodium Potassium Chloride BUN Creatinine Glucose POC Glucose 165 H 135 H 158 H Magnesium ALT Albumin 08/05/18 08/06/18 08/06/18 23:42 06:05 10:25 WBC 11.8 H RBC 2.61 L Hgb 8.2 L Hct 24.9 L MCV MCH MCHC RDW 15.8 H Lymph % (Auto) Lymph # Seg Neutrophils % Seg Neuts % (Manual) Lymphocytes % (Manual) Seg Neutrophils # Seg Neutrophils # Man Lymphocytes # (Manual) APTT POC ABG pCO2 POC ABG pO2 Sodium Potassium Chloride BUN Creatinine Glucose POC Glucose 120 H 196 H Magnesium ALT Albumin 08/06/18 08/06/18 08/06/18 10:25 12:31 17:26 WBC RBC Hgb Hct MCV MCH MCHC RDW Lymph % (Auto) Lymph # Seg Neutrophils % Seg Neuts % (Manual) Lymphocytes % (Manual) Seg Neutrophils # Seg Neutrophils # Man Lymphocytes # (Manual) APTT POC ABG pCO2 POC ABG pO2 Sodium 136 L Potassium 3.3 L D Chloride 93.2 L BUN 32 H Creatinine 4.5 H Glucose 134 H POC Glucose 184 H 174 H Magnesium ALT Albumin 08/07/18 08/07/18 08/07/18 00:32 05:47 11:53 WBC RBC Hgb Hct MCV MCH MCHC RDW Lymph % (Auto) Lymph # Seg Neutrophils % Seg Neuts % (Manual) Lymphocytes % (Manual) Seg Neutrophils # Seg Neutrophils # Man Lymphocytes # (Manual) APTT POC ABG pCO2 POC ABG pO2 Sodium Potassium Chloride BUN Creatinine Glucose POC Glucose 190 H 203 H 161 H Magnesium ALT Albumin 08/07/18 08/08/18 08/08/18 16:39 00:49 06:41 WBC RBC Hgb Hct MCV MCH MCHC RDW Lymph % (Auto) Lymph # Seg Neutrophils % Seg Neuts % (Manual) Lymphocytes % (Manual) Seg Neutrophils # Seg Neutrophils # Man Lymphocytes # (Manual) APTT POC ABG pCO2 POC ABG pO2 Sodium Potassium Chloride BUN Creatinine Glucose POC Glucose 217 H 186 H 167 H Magnesium ALT Albumin 08/08/18 08/08/18 08/09/18 13:09 16:49 00:02 WBC RBC Hgb Hct MCV MCH MCHC RDW Lymph % (Auto) Lymph # Seg Neutrophils % Seg Neuts % (Manual) Lymphocytes % (Manual) Seg Neutrophils # Seg Neutrophils # Man Lymphocytes # (Manual) APTT POC ABG pCO2 POC ABG pO2 Sodium Potassium Chloride BUN Creatinine Glucose POC Glucose 224 H 212 H 188 H Magnesium ALT Albumin 08/09/18 08/09/18 08/09/18 05:35 05:35 05:47 WBC RBC 2.93 L Hgb 9.3 L Hct 27.1 L MCV MCH MCHC RDW 15.7 H Lymph % (Auto) 10.1 L Lymph # 1.0 L Seg Neutrophils % 83.6 H Seg Neuts % (Manual) Lymphocytes % (Manual) Seg Neutrophils # 8.5 H Seg Neutrophils # Man Lymphocytes # (Manual) APTT POC ABG pCO2 POC ABG pO2 Sodium 135 L Potassium 3.3 L Chloride 93.1 L BUN 39 H Creatinine 5.3 H Glucose 172 H POC Glucose 207 H Magnesium ALT Albumin 2.0 L 08/09/18 08/09/18 08/09/18 11:56 18:30 20:23 WBC RBC Hgb Hct MCV MCH MCHC RDW Lymph % (Auto) Lymph # Seg Neutrophils % Seg Neuts % (Manual) Lymphocytes % (Manual) Seg Neutrophils # Seg Neutrophils # Man Lymphocytes # (Manual) APTT POC ABG pCO2 POC ABG pO2 Sodium Potassium Chloride BUN Creatinine Glucose POC Glucose 272 H 148 H 197 H Magnesium ALT Albumin 08/10/18 08/10/18 08/10/18 01:09 05:12 05:12 WBC RBC 2.32 L Hgb 7.2 L Hct 21.6 L MCV MCH MCHC RDW 16.1 H Lymph % (Auto) Lymph # Seg Neutrophils % Seg Neuts % (Manual) Lymphocytes % (Manual) Seg Neutrophils # Seg Neutrophils # Man Lymphocytes # (Manual) APTT POC ABG pCO2 POC ABG pO2 Sodium 133 L Potassium Chloride 90.4 L BUN 57 H Creatinine 6.5 H Glucose 184 H POC Glucose 213 H Magnesium ALT Albumin 08/10/18 06:09 WBC RBC Hgb Hct MCV MCH MCHC RDW Lymph % (Auto) Lymph # Seg Neutrophils % Seg Neuts % (Manual) Lymphocytes % (Manual) Seg Neutrophils # Seg Neutrophils # Man Lymphocytes # (Manual) APTT POC ABG pCO2 POC ABG pO2 Sodium Potassium Chloride BUN Creatinine Glucose POC Glucose 185 H Magnesium ALT Albumin Allied health notes reviewed: nursing
[2018-08-10] MEDS ORDERED: VANCOMYCIN 1,500 MG in NACL 0.9% 500 ML 500 ML IV ONE (15:59)
[2018-08-10] MEDS: PROCRIT SUB-Q PRN (16:04)
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
--- NOTE | 2018-08-10 17:59 | Progress Note ---
Assessment and Plan Assessment and plan: Patient is 58-year-old woman from [facility] with a history of CVA status post trach and PEG, ESRD on hemodialysis and Chronic vegetative state who presented with hypoxia. Patient was recently discharged from this facility on Jul 29 after 11 day stay for multiple problems including Sepsis, aspiration pneumonia, Encephalopathy, and Resp failure, ESRD. Patient was sent from [place] again on 08/01/18 for Low O2 sats which Improved to 100 percent after proper suctioning. Daughter feels that her mother is not being suctioned properly, requested placement to different facility, but no other acceptance. /HD access malfunction, thrombosed s/p thromboectomy /Acute on chronic respiratory failure with hypoxia, Sec to improper or delayed suctioning at [place], Daughter wants a different SNF, Patient has been optimized to a large extent and discharged on Jul 29,breathing treatments, t-tube suction /Aspiration Pneumonitis, poa /ESRD needing dialysis, continue HD per renal, Nephrology consulted /IDDM (insulin dependent diabetes mellitus): Cont SS Coverage with T feeding diet /HTN (hypertension), now hypotensive, give bolus, Cont antihypertensives /GERD (gastroesophageal reflux disease), Cont PPI's /sacral ulcer stage -3, POA, - wound care following, on wound vac, Dr. Zapata following, placed on rectal tube for better healing /DVT prophylaxis, placed on heparin Disposition: continue inpatient, d/c back to [place] tomorrow if HD ok History Interval history: Patient was seen and examined. Follow-up on current diagnosis of Aspiration Pneumonia. Overnight uneventful. Patient denies any chest pain, shortness breath, nausea/vomiting or severe headaches. Imaging, nursing note, chart, labs and old chart reviewed. Discussed with patient. Hospitalist Physical - Physical exam Narrative exam: Gen: chronic disability, ill appearing, NAD, Awake, HEENT: NCAT, trach in place Neck: supple, no adenopathy, no thyromegaly, no JVD CVS/Heart: RRR, normal S1S2, pulses present bilaterally Chest/Lungs: CTA B, Symmetrical chest expansion, good air entry bilaterally GI/Abdomen: soft, NTND, PEG in place, good bowel sounds, no guarding or rebound /Bladder: no suprapubic tenderness, no CVA or paraspinal tenderness Extermity/Skin: no c/c/e, no obvious rash MSK: atrophic contracted legs Neuro: CN 2-12 grossly intact, no new focal deficits, doesn't follow commands Psych: calm - Constitutional Vitals: Temp Pulse Resp BP Pulse Ox 98.6 F 102 H 16 101/34 98 08/10/18 16:00 08/10/18 16:44 08/10/18 16:00 08/10/18 16:44 08/10/18 10:00 General appearance: Present: well-nourished Results - Labs CBC & Chem 7: 08/10/18 05:12 08/10/18 05:12 Labs: Laboratory Last Values WBC 10.6 K/mm3 (4.5-11.0) 08/10/18 05:12 RBC 2.32 M/mm3 (3.65-5.03) L 08/10/18 05:12 Hgb 7.2 gm/dl (10.1-14.3) L 08/10/18 05:12 Hct 21.6 % (30.3-42.9) L 08/10/18 05:12 MCV 93 fl (79-97) 08/10/18 05:12 MCH 31 pg (28-32) 08/10/18 05:12 MCHC 34 % (30-34) 08/10/18 05:12 RDW 16.1 % (13.2-15.2) H 08/10/18 05:12 Plt Count 377 K/mm3 (140-440) 08/10/18 05:12 Lymph % (Auto) 10.1 % (13.4-35.0) L 08/09/18 05:35 Weber % (Auto) 5.2 % (0.0-7.3) 08/09/18 05:35 Eos % (Auto) 0.7 % (0.0-4.3) 08/09/18 05:35 Baso % (Auto) 0.4 % (0.0-1.8) 08/09/18 05:35 Lymph # 1.0 K/mm3 (1.2-5.4) L 08/09/18 05:35 Weber # 0.5 K/mm3 (0.0-0.8) 08/09/18 05:35 Eos # 0.1 K/mm3 (0.0-0.4) 08/09/18 05:35 Baso # 0.0 K/mm3 (0.0-0.1) 08/09/18 05:35 Add Manual Diff Complete 08/02/18 16:22 Total Counted 100 08/02/18 16:22 Seg Neutrophils % 83.6 % (40.0-70.0) H 08/09/18 05:35 Seg Neuts % (Manual) 94.0 % (40.0-70.0) H 08/02/18 16:22 Band Neutrophils % 0 % 08/02/18 16:22 Lymphocytes % (Manual) 6.0 % (13.4-35.0) L 08/02/18 16:22 Reactive Lymphs % (Man) 0 % 08/02/18 16:22 Monocytes % (Manual) 0 % (0.0-7.3) 08/02/18 16:22 Eosinophils % (Manual) 0 % (0.0-4.3) 08/02/18 16:22 Basophils % (Manual) 0 % (0.0-1.8) 08/02/18 16:22 Metamyelocytes % 0 % 08/02/18 16:22 Myelocytes % 0 % 08/02/18 16:22 Promyelocytes % 0 % 08/02/18 16:22 Blast Cells % 0 % 08/02/18 16:22 Nucleated RBC % Not Reportable 08/02/18 16:22 Seg Neutrophils # 8.5 K/mm3 (1.8-7.7) H 08/09/18 05:35 Seg Neutrophils # Man 9.9 K/mm3 (1.8-7.7) H 08/02/18 16:22 Band Neutrophils # 0.0 K/mm3 08/02/18 16:22 Lymphocytes # (Manual) 0.6 K/mm3 (1.2-5.4) L 08/02/18 16:22 Abs React Lymphs (Man) 0.0 K/mm3 08/02/18 16:22 Monocytes # (Manual) 0.0 K/mm3 (0.0-0.8) 08/02/18 16:22 Eosinophils # (Manual) 0.0 K/mm3 (0.0-0.4) 08/02/18 16:22 Basophils # (Manual) 0.0 K/mm3 (0.0-0.1) 08/02/18 16:22 Metamyelocytes # 0.0 K/mm3 08/02/18 16:22 Myelocytes # 0.0 K/mm3 08/02/18 16:22 Promyelocytes # 0.0 K/mm3 08/02/18 16:22 Blast Cells # 0.0 K/mm3 08/02/18 16:22 WBC Morphology Not Reportable 08/02/18 16:22 Hypersegmented Neuts Not Reportable 08/02/18 16:22 Hyposegmented Neuts Not Reportable 08/02/18 16:22 Hypogranular Neuts Not Reportable 08/02/18 16:22 Smudge Cells Not Reportable 08/02/18 16:22 Toxic Granulation Not Reportable 08/02/18 16:22 Toxic Vacuolation Not Reportable 08/02/18 16:22 Dohle Bodies Not Reportable 08/02/18 16:22 Pelger-Huet Anomaly Not Reportable 08/02/18 16:22 Evelina Rods Not Reportable 08/02/18 16:22 Platelet Estimate Consistent w auto 08/02/18 16:22 Clumped Platelets Not Reportable 08/02/18 16:22 Plt Clumps, EDTA Not Reportable 08/02/18 16:22 Large Platelets 1+ 08/02/18 16:22 Giant Platelets Not Reportable 08/02/18 16:22 Platelet Satelliting Not Reportable 08/02/18 16:22 Plt Morphology Comment Not Reportable 08/02/18 16:22 RBC Morphology Not Reportable 08/02/18 16:22 Dimorphic RBCs Not Reportable 08/02/18 16:22 Polychromasia Not Reportable 08/02/18 16:22 Hypochromasia 1+ 08/02/18 16:22 Poikilocytosis Not Reportable 08/02/18 16:22 Anisocytosis 1+ 08/02/18 16:22 Microcytosis Not Reportable 08/02/18 16:22 Macrocytosis Not Reportable 08/02/18 16:22 Spherocytes Not Reportable 08/02/18 16:22 Pappenheimer Bodies Not Reportable 08/02/18 16:22 Sickle Cells Not Reportable 08/02/18 16:22 Target Cells Not Reportable 08/02/18 16:22 Tear Drop Cells Not Reportable 08/02/18 16:22 Ovalocytes Not Reportable 08/02/18 16:22 Helmet Cells Not Reportable 08/02/18 16:22 [place] Bodies Not Reportable 08/02/18 16:22 Henrietta Rings Not Reportable 08/02/18 16:22 Kiki Cells Not Reportable 08/02/18 16:22 Bite Cells Not Reportable 08/02/18 16:22 Crenated Cell Not Reportable 08/02/18 16:22 Elliptocytes Not Reportable 08/02/18 16:22 Acanthocytes (Spur) Not Reportable 08/02/18 16:22 Rouleaux Not Reportable 08/02/18 16:22 Hemoglobin C Crystals Not Reportable 08/02/18 16:22 Schistocytes Not Reportable 08/02/18 16:22 Malaria parasites Not Reportable 08/02/18 16:22 Abraham Bodies Not Reportable 08/02/18 16:22 Hem Pathologist Commnt No 08/02/18 16:22 PT 14.4 Sec. (12.2-14.9) 08/01/18 11:30 INR 1.05 (0.87-1.13) 08/01/18 11:30 APTT 23.5 Sec. (24.2-36.6) L 08/01/18 11:30 POC ABG pH 7.403 (7.35-7.45) 08/02/18 09:07 POC ABG pCO2 43.2 (35-45) 08/02/18 09:07 POC ABG pO2 125 (80-105) H 08/02/18 09:07 POC ABG HCO3 26.9 08/02/18 09:07 POC ABG Total CO2 28 08/02/18 09:07 POC ABG O2 Sat 99 08/02/18 09:07 POC ABG Base Excess 2 08/02/18 09:07 FiO2 30 % 08/02/18 09:07 Sodium 133 mmol/L (137-145) L 08/10/18 05:12 Potassium 4.0 mmol/L (3.6-5.0) D 08/10/18 05:12 Chloride 90.4 mmol/L (98-107) L 08/10/18 05:12 Carbon Dioxide 28 mmol/L (22-30) 08/10/18 05:12 Anion Gap 19 mmol/L 08/10/18 05:12 BUN 57 mg/dL (7-17) H 08/10/18 05:12 Creatinine 6.5 mg/dL (0.7-1.2) H 08/10/18 05:12 Estimated GFR 8 ml/min 08/10/18 05:12 BUN/Creatinine Ratio 9 % 08/10/18 05:12 Glucose 184 mg/dL (65-100) H 08/10/18 05:12 POC Glucose 185 (70-105) H 08/10/18 06:09 Hemoglobin A1c 5.3 % (4-6) 08/01/18 19:56 Calcium 9.0 mg/dL (8.4-10.2) 08/10/18 05:12 Magnesium 2.80 mg/dL (1.7-2.3) H 08/01/18 19:56 Total Bilirubin 0.30 mg/dL (0.1-1.2) 08/09/18 05:35 AST 18 units/L (5-40) 08/09/18 05:35 ALT 11 units/L (7-56) 08/09/18 05:35 Alkaline Phosphatase 101 units/L (35-129) 08/09/18 05:35 Total Protein 6.4 g/dL (6.3-8.2) 08/09/18 05:35 Albumin 2.0 g/dL (3.9-5) L 08/09/18 05:35 Albumin/Globulin Ratio 0.5 % 08/09/18 05:35 Prealbumin 0.277 g/L (0.200-0.400) 08/01/18 19:56 Nutrition/Malnutrition Assess - Dietary Evaluation Nutrition/Malnutrition Findings: Nutrition Notes Start: 08/02/18 16:33 Freq: Status: Active Protocol: Document 08/09/18 11:10 KH (Rec: 08/09/18 12:00 [email or web address]) Co-Sign 08/09/18 11:10 OL Nutrition Notes Initial or Follow up Reassessment Current Diagnosis CKD (stage V CKD) Diabetes Hypertension Respiratory Failure Other Pertinent Diagnosis ESRD on HD Current Diet Nepro at 40mL/hr Labs/Tests Glu: 207 Pertinent Medications Reviewed Height 5 ft 6 in Weight 94.9 kg [place] Body Weight (kg) 59.09 BMI 33.7 Weight change and time frame Wt. change anticipated due to dialysis Weight Status Morbidly Obese Subjective/Other Information Pt. f/u for stable TF. Observed Nepro infusing at 40 ml/hr. Per pt nurse, night nurse cut TF off for unknown time period due to residuals. However, RN checked residuals around 07:00 today and they were 0. Burn Absent Trauma Absent #1 Nutrition Diagnosis Inadequate oral intake Diagnosis Progress(for reassessment Continues documentation) Is patient on ventilator? No Is Patient Ambulatory and/or Out of Bed No REE-([place]-St. Jeor-confined to bed) 1865.232 Kcal/Kg value to use for calculation 17 Approximate Energy Requirements Using 1613 kcal/Kg Additional Notes Protein needs: 89-96g (1.2-1. 3g/kg AdjBW) AdjBW: 74kg Fluid: 1 L or per MD Nutrition Intervention Nutrition Support: Nepro at 40mL/hr with 50mL flush q4h or per MD Kcal 1,728 Protein (gm) 78 Fluid (mL) 698 Goal #1 TF to continue to meet at least 75% of energy and protein needs Anticipated Discharge Needs: Nepro at 40mL/hr with 50mL flush q4h or per MD order Follow-Up By: 08/16/18 Additional Comments F/u: stable TF
[2018-08-10] MEDS ORDERED: PROCRIT ONE (18:07)
[2018-08-10] MEDS: LOPRESSOR PO SCH (22:50)
[2018-08-10] MEDS: SODIUM CHLORIDE FLUSH SYRINGE 10 ML IV SCH (22:51)
[2018-08-10] MEDS: PROAMATINE PO SCH (22:52)
[2018-08-10] MEDS: ZYVOX 600MG/300ML 600 MG/300 ML BAG IV SCH (22:56)
[2018-08-11] MEDS: IMODIUM PO SCH ×4 (00:21→17:35)
[2018-08-11] MEDS: HumaLOG SUB-Q SCH ×4 (04:46→17:31)
[2018-08-11] MEDS: PERCOCET 5/325 PO PRN (05:41)
[2018-08-11] MEDS: HEPARIN SUB-Q SCH ×3 (05:42→22:33)
[2018-08-11] MEDS: ZYVOX 600MG/300ML 600 MG/300 ML BAG IV SCH ×2 (05:47→17:29)
[2018-08-11] MEDS: ZOSYN/NS 2.25 GM/50ML 2.25 GM/50 ML BAG IV SCH ×3 (05:47→22:29)
[2018-08-11] MEDS ORDERED: VERSED ONE (08:09)
[2018-08-11] MEDS ORDERED: SUBLIMAZE ONE (08:09)
[2018-08-11] MEDS ORDERED: HEPARIN/NS 5000 UNIT/500ML(CATH LAB) 500 ML IR ONE (08:10)
[2018-08-11] MEDS ORDERED: HEPARIN 10,000 UNITS/10 ML ONE (08:10)
[2018-08-11] MEDS ORDERED: NACL 0.9% 500 ML 0 ML ONE (08:11)
[2018-08-11] MEDS ORDERED: ANCEF/STERILE WATER 2 GM/20 ML 2 GM/20 ML SYRINGE IV ONE (08:11)
[2018-08-11] MEDS ORDERED: NACL 0.9% 500 ML 500 ML ONE (08:14)
[2018-08-11] MEDS: RENVELA PO SCH ×3 (08:22→17:29)
[2018-08-11] MEDS: XYLOCAINE 1%/ EPI 1:100,000 INFILTRATI ONE ×2 (09:09→09:17)
--- NOTE | 2018-08-11 09:21 | Progress Note ---
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 On admission, she had severe hypotension preceding bradyarythmia leading to PEA arrest on 07/18/2018. Re-admitted on 08/01/18 due to increasing SOB and congestion from Trach site. Now with SIRS: 1) Sepsis: Resolved. Etiology unclear, possibilities GPC bacteremia +/- infected stage IV sacral decubitus +/- HAP 2) GPC bacteremia: ? contaminant versus real ? source sacral decubitus. Blood cultures 08/09/2018 GPC 1 of 4 bottles, Repeat blood cultures ordered. CRP 13.3 3) HAP: Sputum 08/01/2018 Pseudomonas sens to zosyn. CXR initial 08/01 neg. Repeat CXR 08/09 patchy bibasilar infiltrates. Patient started on zyvox and zosyn. 4) Large sacral decubitus: with woundVAC. She is known to have stage IV sacral decubitus since first admission treated medically. 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 Large sacral decubitus: with woundVAC. Continue wound care. 6) History of recent aspiration pneumonia due to MDR Serratia treated with meropenem until 07/28/18 7) ESRD: On HD MWF- Thrombosed left arm AVG. Angioplasty yesterday. Recommendations: - follow-up repeat blood cultures, ID and SAMIA - follow-up wound cultures - follow-up CT pelvis eval for osteo/abscess - f/u surgery eval - may need OR debridement - continue zyvox and zosyn for now - if true bacteremia will change to daptomycin - contact isolation Guarded prognosis consider palliative care [facility] M: [phone] O:[phone] Subjective Date of service: 08/11/18 Principal diagnosis: Ac on Ch hypoxemic Resp failure; Diabetes type II; ESRD on dialysis (M/W/F) Interval history: Patient seen and examined. Asleep, easily arousable, no acute distress observed. Daughters at bedside. Nurses notes, labs and reports reviewed, discussed with family. Objective - Exam Narrative Exam: General appearance: Alert in NAD, non conversant Eyes: anicteric sclerae, moist conjunctivae; no lid-lag; PERRLA HENT: Atraumatic; oropharynx clear Neck: Trach Lungs: anayeli scattered rhonchi CV: RRR, no murmurs Abdomen: Soft, non-tender; +PEG Extremities: No peripheral edema or extremity lymphadenopathy Skin: sacral wound VAC Psych: Appropriate affect, alert and oriented to person, place and time. Neuro: alert non verbal - Constitutional Vitals: Vital Signs Temp Pulse Resp BP Pulse Ox 97.7 F 89 18 117/55 98 08/11/18 04:44 08/11/18 04:45 08/11/18 05:41 08/11/18 05:37 08/11/18 04:45 Temperature -Last 24 Hours Temperature 97.7 F Temperature 98.4 F Temperature 99.9 F Temperature 98.6 F Temperature 98.8 F - Labs CBC & Chem 7: 08/11/18 10:22 08/11/18 10:22 Labs: Abnormal lab results 08/10/18 08/11/18 08/11/18 Range/Units 20:30 00:51 05:35 POC Glucose 181 H 185 H (70-105) C-Reactive Protein 14.30 H (0.00-1.30) mg/dL
--- NOTE | 2018-08-11 09:31 | Operative Report ---
Operative Report Operative Report: EXAM: 1. Ultrasound-guided puncture of the left internal jugular vein 2. Fluoroscopic-guided placement of a left internal jugular tunneled cuffed hemodialysis catheter. DATE: 08/11/18 INDICATION: End-stage renal disease with nonsalvageable AV access. MEDICATIONS: Please see nursing report for full details. DEVICES: 27 cm tip to cuff 15 Fr dual lumen hemodialysis catheter METAL HANGING HELPER: DALIA FISHER MD CONTRAST: None PROCEDURE: The risks, benefits, and alternatives were discussed and informed consent was obtained. The patient was transported to the angiography suite in satisfactory/stable condition and was transported onto the angiography table. The patient's left internal jugular vein was assessed with ultrasound and determined to be patent prior to procedure. The patient was prepped and draped in a sterile fashion. The puncture site was anesthetized. Under sonographic guidance, the right internal jugular vein was punctured with a 21-gauge micropuncture needle and a 0.018 inch wire was advanced into the right atrium. The micropuncture needle was exchanged for a transitional dilator and the wire was retracted into the right atrium to michell intravascular distance. The wire and inner dilator were removed. 0.035 inch Amplatz wire was advanced through the transitional dilator into the inferior vena cava. A suitable exit site was identified on the patient's chest inferior and lateral to the venotomy. The site was anesthetized with local anesthetic and the track was anesthetized. Dermatotomy was made. The PermCath was attached to the tunneling device and tunneled between the dermatotomy to the venotomy. Over the 0.035 inch wire, serial dilatation was performed with ultimate placement of a peel-away sheath. The catheter was advanced through the peel- away sheath after the wire was removed and positioned centrally under fluoroscopic guidance. The peel-away sheath was removed. 4-0 Vicryl suture was used to close the venotomy and Dermabond was then applied. 2-0 Ethilon suture was used to secure the catheter at the dermatotomy. The catheter was charged with heparin 1000 units per mL of space. Sterile dressing and Biopatch applied. The patient was transferred from the angiography suite back to the recovery area in stable condition. FINDINGS: 1. Excellent flow was obtained through the dialysis catheter with 20 mL syringes. 2. The catheter tip is in the right atrium. IMPRESSION: 1. Successful ultrasound and fluoroscopically guided placement of a left internal jugular tunneled cuffed hemodialysis catheter.
--- NOTE | 2018-08-11 09:31 | Post Operative Note ---
Date of procedure: 08/11/18 Pre-op diagnosis: ESRD with no functional AV access Post-op diagnosis: same Procedure: left ij permcath placement Anesthesia: local (w/ conscious sedation) Surgeon: DALIA FISHER Estimated blood loss: minimal Condition: stable Disposition: floor
--- NOTE | 2018-08-11 09:55 | Progress Note ---
Assessment and Plan Acute on Chronic hypoxemic respiratory failure Acute on Chronic Encephalopathy (Toxic / Metabolic / Anoxic) Diabetes type II End-stage renal disease, on dialysis Wednesday, Wednesday and Wednesday Cardiomyopathy (S/P AICD implantation) Anemia of chronic disease Leukocytosis Adult failure to thrive s/p trachesotomy Oropharyngeal dysphagia (s/p PEG) S/p PPM for sinus arrest s/p Mitral valve repair h/o Mitral Valve SBE Atrial Fibrillation (Paroxysmal) GPC bacteremia -On linezolid Follow up cultures for ID and SAMIA. Monitor hemodynamics closely Follow up blood cultures to document clearance -Continue ATP -Trach care, airway clearance, secretion management - PT/OT as tolerated -VTE and Stress ulcer prophylaxis - enteric feedings as tolerated - accucheck with glycemic control. Target blood glucose of 140-180mg/dL - Monitor closely for hypoglycemia - bronchodilators with pulmonary hygiene per RT - Wean supplemental oxygen for O2 sats > 90% - supportive HD/UF for toxin and volume clearance - CXR and ABG as indicated -continue wound care and wound vac -discharge planning Subjective Date of service: 08/11/18 Principal diagnosis: Ac on Ch hypoxemic Resp failure; Diabetes type II; ESRD on dialysis (M/W/F) Interval history: Patient is seen today for: Acute on Chronic hypoxemic respiratory failure; Acute Encephalopathy (Toxic / Metabolic / Anoxic); Diabetes type II; End-stage renal disease (M/W/F) Seen and examined at bedside; 24hour events reviewed; nursing and respiratory care staff consulted; no adverse overnight events reported to me; resting peacefully in bed; remains on T-piece Thrombosed graft, s/p percutaneous mechanical thrombectomy of AV graft, balloon angioplasty Getting CT scan, then will get HD today Objective Vital Signs - 12hr 08/10/18 08/10/18 08/11/18 22:00 22:50 04:44 Temperature 97.7 F Pulse Rate 96 H 90 Respiratory 18 17 Rate Blood Pressure 97/53 102/45 O2 Sat by Pulse 89 Oximetry 08/11/18 08/11/18 08/11/18 04:45 05:37 05:41 Temperature Pulse Rate 89 Respiratory 18 Rate Blood Pressure 117/55 O2 Sat by Pulse 98 Oximetry Constitutional: alert, appears uncomfortable, other (middle aged AAF, normocephalic with mildly increased respiratory effort on t-piece) Eyes: non-icteric ENT: oropharynx moist Neck: supple, no lymphadenopathy, no JVD, other (+ midline tracheostomy tube) Effort: mildly labored Ascultation: Bilateral: diminished breath sounds, rhonchi Percussion: Bilateral: not dull Cardiovascular: regular rate and rhythm, murmur noted (s1,S2, systolic murmur) Gastrointestinal: normoactive bowel sounds, soft, non-tender, non-distended, other (PEG in place) Integumentary: rash Extremities: no cyanosis, no edema, pulses normal, no ischemia or petechiae Neurologic: pupils equal and round, other (not obeying commands to adequately assess) Psychiatric: other (flat affect) CBC and BMP: 08/12/18 05:02 08/11/18 10:22 ABG, PT/INR, D-dimer: ABG POC ABG pH 7.403 (7.35-7.45) 08/02/18 09:07 POC ABG pCO2 43.2 (35-45) 08/02/18 09:07 POC ABG pO2 125 (80-105) H 08/02/18 09:07 POC ABG HCO3 26.9 08/02/18 09:07 POC ABG Total CO2 28 08/02/18 09:07 POC ABG O2 Sat 99 08/02/18 09:07 PT/INR, D-dimer PT 14.4 Sec. (12.2-14.9) 08/01/18 11:30 INR 1.05 (0.87-1.13) 08/01/18 11:30 Abnormal lab findings: Abnormal Labs 08/01/18 08/01/18 08/01/18 11:30 11:30 11:30 WBC 13.7 H RBC 2.81 L Hgb 8.9 L Hct 27.4 L MCV 98 H MCH MCHC RDW 16.0 H Lymph % (Auto) 10.1 L Lymph # Seg Neutrophils % 84.3 H Seg Neuts % (Manual) Lymphocytes % (Manual) Seg Neutrophils # 11.6 H Seg Neutrophils # Man Lymphocytes # (Manual) APTT 23.5 L POC ABG pCO2 POC ABG pO2 Sodium 133 L Potassium Chloride 89.8 L BUN 78 H Creatinine 8.7 H D Glucose 177 H POC Glucose Magnesium ALT C-Reactive Protein Albumin 0208/01/18 08/02/18 18:38 19:56 09:07 WBC RBC Hgb Hct MCV MCH MCHC RDW Lymph % (Auto) Lymph # Seg Neutrophils % Seg Neuts % (Manual) Lymphocytes % (Manual) Seg Neutrophils # Seg Neutrophils # Man Lymphocytes # (Manual) APTT POC ABG pCO2 48.2 H POC ABG pO2 146 H 125 H Sodium Potassium Chloride BUN Creatinine Glucose POC Glucose Magnesium 2.80 H ALT C-Reactive Protein Albumin 08/02/18 08/02/18 08/02/18 16:22 16:22 17:21 WBC RBC 2.42 L Hgb 8.1 L Hct 22.8 L MCV MCH 34 H MCHC 36 H RDW 15.7 H Lymph % (Auto) Lymph # Seg Neutrophils % Seg Neuts % (Manual) 94.0 H Lymphocytes % (Manual) 6.0 L Seg Neutrophils # Seg Neutrophils # Man 9.9 H Lymphocytes # (Manual) 0.6 L APTT POC ABG pCO2 POC ABG pO2 Sodium 134 L Potassium Chloride 90.7 L BUN 38 H Creatinine 4.8 H Glucose 175 H POC Glucose 191 H Magnesium ALT < 5 L C-Reactive Protein Albumin 2.9 L 08/03/18 08/03/18 08/03/18 05:19 07:43 07:43 WBC RBC 2.67 L Hgb 8.3 L Hct 24.9 L MCV MCH MCHC RDW 15.6 H Lymph % (Auto) Lymph # Seg Neutrophils % Seg Neuts % (Manual) Lymphocytes % (Manual) Seg Neutrophils # Seg Neutrophils # Man Lymphocytes # (Manual) APTT POC ABG pCO2 POC ABG pO2 Sodium 134 L Potassium Chloride 89.7 L BUN 52 H Creatinine 5.9 H Glucose 180 H POC Glucose 212 H Magnesium ALT C-Reactive Protein Albumin 08/03/18 08/03/18 08/04/18 12:32 23:42 05:42 WBC RBC Hgb Hct MCV MCH MCHC RDW Lymph % (Auto) Lymph # Seg Neutrophils % Seg Neuts % (Manual) Lymphocytes % (Manual) Seg Neutrophils # Seg Neutrophils # Man Lymphocytes # (Manual) APTT POC ABG pCO2 POC ABG pO2 Sodium Potassium Chloride BUN Creatinine Glucose POC Glucose 223 H 139 H 151 H Magnesium ALT C-Reactive Protein Albumin 08/04/18 08/04/18 08/04/18 12:11 17:12 20:55 WBC RBC Hgb Hct MCV MCH MCHC RDW Lymph % (Auto) Lymph # Seg Neutrophils % Seg Neuts % (Manual) Lymphocytes % (Manual) Seg Neutrophils # Seg Neutrophils # Man Lymphocytes # (Manual) APTT POC ABG pCO2 POC ABG pO2 Sodium Potassium Chloride BUN Creatinine Glucose POC Glucose 193 H 137 H 175 H Magnesium ALT C-Reactive Protein Albumin 08/04/18 08/05/18 08/05/18 23:23 05:55 12:03 WBC RBC Hgb Hct MCV MCH MCHC RDW Lymph % (Auto) Lymph # Seg Neutrophils % Seg Neuts % (Manual) Lymphocytes % (Manual) Seg Neutrophils # Seg Neutrophils # Man Lymphocytes # (Manual) APTT POC ABG pCO2 POC ABG pO2 Sodium Potassium Chloride BUN Creatinine Glucose POC Glucose 165 H 135 H 158 H Magnesium ALT C-Reactive Protein Albumin 08/05/18 08/06/18 08/06/18 23:42 06:05 10:25 WBC 11.8 H RBC 2.61 L Hgb 8.2 L Hct 24.9 L MCV MCH MCHC RDW 15.8 H Lymph % (Auto) Lymph # Seg Neutrophils % Seg Neuts % (Manual) Lymphocytes % (Manual) Seg Neutrophils # Seg Neutrophils # Man Lymphocytes # (Manual) APTT POC ABG pCO2 POC ABG pO2 Sodium Potassium Chloride BUN Creatinine Glucose POC Glucose 120 H 196 H Magnesium ALT C-Reactive Protein Albumin 08/06/18 08/06/18 08/06/18 10:25 12:31 17:26 WBC RBC Hgb Hct MCV MCH MCHC RDW Lymph % (Auto) Lymph # Seg Neutrophils % Seg Neuts % (Manual) Lymphocytes % (Manual) Seg Neutrophils # Seg Neutrophils # Man Lymphocytes # (Manual) APTT POC ABG pCO2 POC ABG pO2 Sodium 136 L Potassium 3.3 L D Chloride 93.2 L BUN 32 H Creatinine 4.5 H Glucose 134 H POC Glucose 184 H 174 H Magnesium ALT C-Reactive Protein Albumin 08/07/18 08/07/18 08/07/18 00:32 05:47 11:53 WBC RBC Hgb Hct MCV MCH MCHC RDW Lymph % (Auto) Lymph # Seg Neutrophils % Seg Neuts % (Manual) Lymphocytes % (Manual) Seg Neutrophils # Seg Neutrophils # Man Lymphocytes # (Manual) APTT POC ABG pCO2 POC ABG pO2 Sodium Potassium Chloride BUN Creatinine Glucose POC Glucose 190 H 203 H 161 H Magnesium ALT C-Reactive Protein Albumin 08/07/18 08/08/18 08/08/18 16:39 00:49 06:41 WBC RBC Hgb Hct MCV MCH MCHC RDW Lymph % (Auto) Lymph # Seg Neutrophils % Seg Neuts % (Manual) Lymphocytes % (Manual) Seg Neutrophils # Seg Neutrophils # Man Lymphocytes # (Manual) APTT POC ABG pCO2 POC ABG pO2 Sodium Potassium Chloride BUN Creatinine Glucose POC Glucose 217 H 186 H 167 H Magnesium ALT C-Reactive Protein Albumin 08/08/18 08/08/18 08/09/18 13:09 16:49 00:02 WBC RBC Hgb Hct MCV MCH MCHC RDW Lymph % (Auto) Lymph # Seg Neutrophils % Seg Neuts % (Manual) Lymphocytes % (Manual) Seg Neutrophils # Seg Neutrophils # Man Lymphocytes # (Manual) APTT POC ABG pCO2 POC ABG pO2 Sodium Potassium Chloride BUN Creatinine Glucose POC Glucose 224 H 212 H 188 H Magnesium ALT C-Reactive Protein Albumin 08/09/18 08/09/18 08/09/18 05:35 05:35 05:47 WBC RBC 2.93 L Hgb 9.3 L Hct 27.1 L MCV MCH MCHC RDW 15.7 H Lymph % (Auto) 10.1 L Lymph # 1.0 L Seg Neutrophils % 83.6 H Seg Neuts % (Manual) Lymphocytes % (Manual) Seg Neutrophils # 8.5 H Seg Neutrophils # Man Lymphocytes # (Manual) APTT POC ABG pCO2 POC ABG pO2 Sodium 135 L Potassium 3.3 L Chloride 93.1 L BUN 39 H Creatinine 5.3 H Glucose 172 H POC Glucose 207 H Magnesium ALT C-Reactive Protein Albumin 2.0 L 08/09/18 08/09/18 08/09/18 11:56 18:30 20:23 WBC RBC Hgb Hct MCV MCH MCHC RDW Lymph % (Auto) Lymph # Seg Neutrophils % Seg Neuts % (Manual) Lymphocytes % (Manual) Seg Neutrophils # Seg Neutrophils # Man Lymphocytes # (Manual) APTT POC ABG pCO2 POC ABG pO2 Sodium Potassium Chloride BUN Creatinine Glucose POC Glucose 272 H 148 H 197 H Magnesium ALT C-Reactive Protein Albumin 08/10/18 08/10/18 08/10/18 01:09 05:12 05:12 WBC RBC 2.32 L Hgb 7.2 L Hct 21.6 L MCV MCH MCHC RDW 16.1 H Lymph % (Auto) Lymph # Seg Neutrophils % Seg Neuts % (Manual) Lymphocytes % (Manual) Seg Neutrophils # Seg Neutrophils # Man Lymphocytes # (Manual) APTT POC ABG pCO2 POC ABG pO2 Sodium 133 L Potassium Chloride 90.4 L BUN 57 H Creatinine 6.5 H Glucose 184 H POC Glucose 213 H Magnesium ALT C-Reactive Protein Albumin 08/10/18 08/10/18 08/11/18 06:09 20:30 00:51 WBC RBC Hgb Hct MCV MCH MCHC RDW Lymph % (Auto) Lymph # Seg Neutrophils % Seg Neuts % (Manual) Lymphocytes % (Manual) Seg Neutrophils # Seg Neutrophils # Man Lymphocytes # (Manual) APTT POC ABG pCO2 POC ABG pO2 Sodium Potassium Chloride BUN Creatinine Glucose POC Glucose 185 H 181 H Magnesium ALT C-Reactive Protein 14.30 H Albumin 08/11/18 05:35 WBC RBC Hgb Hct MCV MCH MCHC RDW Lymph % (Auto) Lymph # Seg Neutrophils % Seg Neuts % (Manual) Lymphocytes % (Manual) Seg Neutrophils # Seg Neutrophils # Man Lymphocytes # (Manual) APTT POC ABG pCO2 POC ABG pO2 Sodium Potassium Chloride BUN Creatinine Glucose POC Glucose 185 H Magnesium ALT C-Reactive Protein Albumin Allied health notes reviewed: nursing
--- NOTE | 2018-08-11 10:02 | Progress Note ---
Assessment and Plan 1. ESRD: Continue hemodialysis three times a week, MWF schedule. 2. Thrombosed left arm AVG: S/p tunnel catheter. 3. Respiratory failure: Trached, on T-piece. 4. Anemia: Epogen with HD. 5. Hypotension: Midodrine. 6. Sepsis: ID consulted. 7. H/o Cardiac arrest. 8. H/o CVA. 9. Anoxic encephalopathy. D/w her daughter at the bedside. Subjective Date of service: 08/11/18 Principal diagnosis: Ac on Ch hypoxemic Resp failure; Diabetes type II; ESRD on dialysis (M/W/F) Interval history: Patient was seen and examined at the bedside. Objective - Vital Signs Vital signs: Vital Signs - 12hr 08/10/18 08/11/18 08/11/18 22:50 04:44 04:45 Temperature 97.7 F Pulse Rate 96 H 90 89 Respiratory 17 Rate Blood Pressure 97/53 102/45 O2 Sat by Pulse 89 98 Oximetry 08/11/18 08/11/18 05:37 05:41 Temperature Pulse Rate Respiratory 18 Rate Blood Pressure 117/55 O2 Sat by Pulse Oximetry - General Appearance General appearance: well-developed, appears stated age, other (not in distress, left IJ tunnel catheter) EENT: ATNC Neck: other (Trached, on T-piece) Respiratory: Present: Clear to Ascultation Cardiology: regular, S1S2, no murmurs Gastrointestinal: normoactive bowel sounds, no tenderness, no distended Integumentary: no rash Neurologic: other (alert,not following any command) Musculoskeletal: other (no edema, clotted left arm AVG) - Lab 08/11/18 10:22 08/11/18 10:22 Most recent lab results Calcium 9.0 mg/dL (8.4-10.2) 08/10/18 05:12 Magnesium 2.80 mg/dL (1.7-2.3) H 08/01/18 19:56 Medications & Allergies - Medications Allergies/Adverse Reactions: Allergies ondansetron Allergy (Verified 08/01/18 11:00) Anaphylaxis sulfamethoxazole [From Bactrim] Allergy (Verified 08/01/18 11:00) Anaphylaxis trimethoprim [From Bactrim] Allergy (Verified 08/01/18 11:00) Anaphylaxis vancomycin Allergy (Verified 08/01/18 11:00) Anaphylaxis Home Medications: Home Medications Medication Instructions Recorded Confirmed Last Taken Type ALBUTEROL NEB's [Proventil 0.083% 3 ml IH Q4HR 07/26/18 08/01/18 Unknown History NEBS] Metoprolol [Lopressor TAB] 25 mg PO BID tablet 07/29/18 08/01/18 Unknown Rx amLODIPine [Norvasc] 5 mg PO QDAY tablet 07/29/18 08/01/18 Unknown Rx Amiodarone HCl [Pacerone] 200 mg PO DAILY 08/01/18 08/01/18 Unknown History Aspirin [Adult Aspirin] 81 mg PO DAILY 08/01/18 08/01/18 Unknown History Carvedilol [Coreg] 12.5 mg PO BID 08/01/18 08/01/18 Unknown History Famotidine 20 mg PO DAILY 08/01/18 08/01/18 Unknown History Gabapentin [Gralise] 30 mg PO QHS 08/01/18 08/01/18 Unknown History Lispro Insulin [Humalog] 0 unit SQ TID 08/01/18 08/01/18 Unknown History Loperamide [Imodium] 2 mg PO Q6H 08/01/18 08/01/18 Unknown History Sevelamer Carbonate [Renvela] 800 mg PO TIDWM 08/01/18 08/01/18 Unknown History Zinc Sulfate 220 mg PO DAILY 08/01/18 08/01/18 Unknown History Acetaminophen [Acetaminophen TAB] 650 mg PO Q4H PRN #15 tablet 08/09/18 Unknown Rx Midodrine [Proamatine] 10 mg PO BID #60 tablet 08/09/18 Unknown Rx QUEtiapine [SEROquel] 25 mg PO BID@0800,1700 #60 tablet 08/09/18 Unknown Rx QUEtiapine [SEROquel] 50 mg PO QHS #30 tablet 08/09/18 Unknown Rx Simple Syrup 30 ml FEEDTUBE PRN PRN #30 08/09/18 Unknown Rx oral.liqd Sodium Bicarbonate 325 mg FEEDTUBE PRN PRN #30 tablet 08/09/18 Unknown Rx Active Medications: Generic Name Dose Route Start Last Admin Trade Name Freq PRN Reason Stop Dose Admin Acetaminophen 650 mg 08/01/18 19:44 08/08/18 21:10 Tylenol PO 650 mg Q4H PRN Administration Pain MILD(1-3)/Fever >100.5/CASAREZ Albuterol/Ipratropium 1 ampul 08/02/18 14:00 08/10/18 21:30 Duoneb *Not For Prn Use* IH 1 ampul TIDRT [facility] Administration Amiodarone HCl 200 mg 08/01/18 22:00 08/09/18 10:54 Cordarone PO 200 mg DAILY [facility] Administration Lipase/Protease/Amylase 1 each 08/04/18 10:24 Pancreaze 10,500 Unit FEEDTUBE PRN PRN For Clogged Feeding Tube Aspirin 81 mg 08/01/18 22:00 08/09/18 10:54 Halfprin Ec PO 81 mg DAILY [facility] Administration Epoetin Beka 20,000 unit 08/02/18 10:41 08/10/18 16:04 Procrit SUB-Q 20,000 unit ANJANA PRN Administration hemodialysis Famotidine 20 mg 08/01/18 22:00 08/09/18 10:55 Pepcid PO 20 mg DAILY [facility] Administration Heparin Sodium (Porcine) 5,000 unit 08/03/18 14:00 08/11/18 05:42 Heparin SUB-Q 5,000 unit Q8HR [facility] Administration Sodium Chloride 100 mls @ 999 mls/hr 08/02/18 09:40 Nacl 0.9% IV ANJANA PRN Hypotension Piperacillin Sod/Tazobactam Sod 2.25 gm in 50 mls @ 100 mls/hr 08/09/18 14:00 08/11/18 05:47 Zosyn/Ns 2.25 Gm/50ml IV 100 mls/hr Q8HR [facility] Administration Linezolid 600 mg in 300 mls @ 300 mls/hr 08/10/18 18:00 08/11/18 05:47 Zyvox 600mg/300ml IV 300 mls/hr Q12H [facility] Administration Protocol Insulin Human Lispro 0 unit 08/02/18 08:00 08/11/18 06:10 Humalog SUB-Q Not Given Q6HR [facility] Protocol Loperamide HCl 2 mg 08/01/18 22:00 08/11/18 05:41 Imodium PO 2 mg Q6HR [facility] Administration Metoprolol Tartrate 25 mg 08/01/18 22:00 08/10/18 22:50 Lopressor PO Not Given BID [facility] Midodrine 10 mg 08/09/18 11:00 08/10/18 22:52 Proamatine PO 10 mg BID [facility] Administration Oxycodone/Acetaminophen 1 tab 08/10/18 23:10 08/11/18 05:41 Percocet 5/325 PO 1 tab Q6H PRN Administration Pain, Moderate (4-6) Quetiapine Fumarate 50 mg 08/05/18 22:00 08/10/18 22:55 Seroquel PO 50 mg QHS [facility] Administration Quetiapine Fumarate 25 mg 08/08/18 08:00 08/09/18 19:33 Seroquel PO Not Given BID@0800,1700 [facility] Sevelamer Carbonate 800 mg 08/02/18 08:00 08/09/18 19:38 Renvela PO 800 mg TIDWM [facility] Administration Simple Syrup 15 ml 08/04/18 10:24 Simple Syrup FEEDTUBE PRN PRN Hypoglycemia Simple Syrup 30 ml 08/04/18 10:24 Simple Syrup FEEDTUBE PRN PRN Hypoglycemia Sodium Bicarbonate 325 mg 08/04/18 10:24 Sodium Bicarbonate FEEDTUBE PRN PRN For Clogged Feeding Tube Sodium Chloride 10 ml 08/01/18 22:00 08/10/18 22:51 Sodium Chloride Flush Syringe 10 Ml IV 10 ml BID [facility] Administration Sodium Chloride 10 ml 08/01/18 19:44 Sodium Chloride Flush Syringe 10 Ml IV PRN PRN LINE FLUSH Zinc Sulfate 220 mg 08/02/18 10:00 08/09/18 10:50 Zinc Sulfate PO 220 mg DAILY [facility] Administration
[2018-08-11] MEDS ORDERED: SIMPLE SYRUP FEEDTUBE PRN ×2 (11:20)
[2018-08-11] MEDS ORDERED: PANCREAZE DR 10,500 UNIT FEEDTUBE PRN (11:20)
[2018-08-11] MEDS ORDERED: SODIUM BICARBONATE FEEDTUBE PRN (11:20)
[2018-08-11] MEDS: PROAMATINE PO SCH ×2 (11:58→22:29)
[2018-08-11] MEDS: LOPRESSOR PO SCH ×2 (11:59→22:42)
[2018-08-11] MEDS: HALFPRIN EC PO SCH (11:59)
[2018-08-11] MEDS: PEPCID PO SCH (11:59)
[2018-08-11] MEDS ORDERED: XYLOCAINE TOPICAL 4% TP ONE (12:00)
[2018-08-11] MEDS: CORDARONE PO SCH (12:00)
[2018-08-11 12:01] LABS: Hematocrit 20.7 % (30.3-42.9); Hemoglobin 6.9 gm/dl (10.1-14.3)
[2018-08-11] MEDS: SODIUM CHLORIDE FLUSH SYRINGE 10 ML IV SCH ×2 (12:01→22:34)
[2018-08-11] MEDS ORDERED: MORPHINE IV ONE (12:13)
[2018-08-11] MEDS ORDERED: MORPHINE ONE (12:22)
--- NOTE | 2018-08-11 12:41 | Procedure Note ---
Date of procedure: 08/11/18 Pre-op diagnosis: Stage 4 sacral pressure ulcer Post-op diagnosis: same Procedure: Debridement of necrotic SQ tissue, fascia and muscle from stage 4 sacral pressure ulcer Description of procedure: Pt was placed in a right sided down position. 4% viscous lidocaine was applied to her sacral pressure ulcer. She was given 1 mg of IV Morphine. After about 10 minutes, her sacral pressure ulcer was surgically, excisionally debrided of necrotic SQ, fascia and muscle with forceps and scissors. Bleeding was minimal and was controlled with pressure. Wound was packed open with dry 4 X 4's followed by an ABD. Pt tolerated the procedure well. Final wound measurements were 4.5 X 5.1 X 2.5 cm. Anesthesia: other (4% viscous Lidocaine and IV Morphine) Surgeon: ADRIANO CAIN Estimated blood loss: minimal Pathology: none Specimen disposition: discarded Condition: stable Disposition: no change
--- NOTE | 2018-08-11 13:01 | Cat Scan Report ---
CT ABDOMEN PELVIS WITHOUT CONTRAST: HISTORY: Large sacral ulcer, evaluate for osteomyelitis or abscess. COMPARISON: none. TECHNIQUE: Helical CT in 1.25mm intervals without IV contrast. Sagittal and coronal reconstructions. FINDINGS: Lung bases: Mild atelectatic changes at the lung bases. Liver: Normal. Biliary system: There are several small partially calcified gallstones in the gallbladder. No obvious findings of acute cholecystitis. The common bile duct appears normal caliber. Pancreas: Normal. Spleen: Normal. Kidneys/ureters/bladder: Normal. Adrenal glands: Normal. Aorta: Mild diffuse calcifications. No aneurysm. Intestines: A PEG tube is in position. A rectal tube is also in position. No evidence for obstruction or focal inflammation. Appendix: Not confidently identified. Pelvic viscera: 2 cm exophytic fibroid is identified from the anterior wall of the uterus. The adnexa are unremarkable. Ascites: None. Adenopathy: None. Musculoskeletal: Focal area of ulceration in the sacral area nearly extends to bone. No obvious mature abscess is appreciated. No bony destruction is identified in the sacrum. IMPRESSION: Sacral ulcer as described. There are no convincing findings of abscess or osteomyelitis on noncontrast CT. No acute abdominal process is identified. Cholelithiasis. Mild uterine fibroid disease.
--- NOTE | 2018-08-11 13:10 | Progress Note ---
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 Patient was recently discharged from this facility on Jul 29 after 11 day stay for multiple problems including Sepsis, aspiration pneumonia, Encephalopathy, and Resp failure, ESRD. Patient was sent from [place] again on 08/01/18 for Low O2 sats which Improved to 100% after proper suctioning. Daughter felt that her mother is not being suctioned properly, requested placement to different facility, but no other acceptance. /HD access malfunction, thrombosed s/p thromboectomy: going for perm-a-cath today /Acute on chronic respiratory failure with hypoxia, Sec to improper or delayed suctioning at [place], Daughter wants a different SNF, Patient has been optimized to a large extent and discharged on Jul 29,breathing treatments, t-tube suction /Aspiration Pneumonitis with Sepsis, poa: continue abx, ID is following /Sepsis poa, GPC bacteremia +/- infected stage IV sacral decubitus +/- HAP: on Abx, ID managing /HAP: Sputum 08/01/2018 Pseudomonas sens to zosyn. ID following, CXR initial 08/01 neg. Repeat CXR 08/09 patchy bibasilar infiltrates. Patient started on zyvox and zosyn. /ESRD needing dialysis, continue HD per renal, Nephrology consulted /IDDM (insulin dependent diabetes mellitus): continue sliding scale coverage with T-feeding diet /HTN (hypertension), now hypotensive, give bolus, continue antihypertensives /GERD (gastroesophageal reflux disease), Cont PPI's /Large sacral decubitus with wound VAC, poa. She is known to have stage IV sacral decubitus since first admission treated medically: s/p Debridement of necrotic SQ tissue, fascia and muscle from stage 4 sacral pressure ulcer 08/11/18. ID ordered CT abd/pelvis which showed no abscess/osteomyelitis. /DVT prophylaxis, placed on heparin Disposition: continue inpatient, d/c back to [place] tomorrow if HD ok History Interval history: Patient was seen and examined. Follow-up on current diagnosis of Aspiration Pneumonia. Overnight uneventful. Patient is nonverbal. Imaging, nursing note, chart, labs and old chart reviewed. Discussed with patient. Hospitalist Physical - Physical exam Narrative exam: Gen: chronic disability, ill appearing, NAD, Awake, HEENT: NCAT, trach in place Neck: supple, no adenopathy, no thyromegaly, no JVD CVS/Heart: RRR, normal S1S2, pulses present bilaterally Chest/Lungs: CTA B, Symmetrical chest expansion, good air entry bilaterally GI/Abdomen: soft, NTND, PEG in place, good bowel sounds, no guarding or rebound /Bladder: no suprapubic tenderness, no CVA or paraspinal tenderness Extermity/Skin: sacral ulcer stage 4, poa, Final wound measurements were 4.5 X 5.1 X 2.5 cm. MSK: atrophic contracted legs Neuro: CN 2-12 grossly intact, no new focal deficits, doesn't follow commands Psych: calm - Constitutional Vitals: Temp Pulse Resp BP Pulse Ox 97.7 F 89 18 117/55 100 08/11/18 04:44 08/11/18 04:45 08/11/18 05:41 08/11/18 05:37 08/11/18 11:13 General appearance: Present: well-nourished Results - Labs CBC & Chem 7: 08/11/18 10:22 08/11/18 10:22 Labs: Laboratory Last Values WBC 10.6 K/mm3 (4.5-11.0) 08/10/18 05:12 RBC 2.32 M/mm3 (3.65-5.03) L 08/10/18 05:12 Hgb 6.9 gm/dl (10.1-14.3) L 08/11/18 10:22 Hct 20.7 % (30.3-42.9) L 08/11/18 10:22 MCV 93 fl (79-97) 08/10/18 05:12 MCH 31 pg (28-32) 08/10/18 05:12 MCHC 34 % (30-34) 08/10/18 05:12 RDW 16.1 % (13.2-15.2) H 08/10/18 05:12 Plt Count 377 K/mm3 (140-440) 08/10/18 05:12 Lymph % (Auto) 10.1 % (13.4-35.0) L 08/09/18 05:35 Clarke % (Auto) 5.2 % (0.0-7.3) 08/09/18 05:35 Eos % (Auto) 0.7 % (0.0-4.3) 08/09/18 05:35 Baso % (Auto) 0.4 % (0.0-1.8) 08/09/18 05:35 Lymph # 1.0 K/mm3 (1.2-5.4) L 08/09/18 05:35 Clarke # 0.5 K/mm3 (0.0-0.8) 08/09/18 05:35 Eos # 0.1 K/mm3 (0.0-0.4) 08/09/18 05:35 Baso # 0.0 K/mm3 (0.0-0.1) 08/09/18 05:35 Add Manual Diff Complete 08/02/18 16:22 Total Counted 100 08/02/18 16:22 Seg Neutrophils % 83.6 % (40.0-70.0) H 08/09/18 05:35 Seg Neuts % (Manual) 94.0 % (40.0-70.0) H 08/02/18 16:22 Band Neutrophils % 0 % 08/02/18 16:22 Lymphocytes % (Manual) 6.0 % (13.4-35.0) L 08/02/18 16:22 Reactive Lymphs % (Man) 0 % 08/02/18 16:22 Monocytes % (Manual) 0 % (0.0-7.3) 08/02/18 16:22 Eosinophils % (Manual) 0 % (0.0-4.3) 08/02/18 16:22 Basophils % (Manual) 0 % (0.0-1.8) 08/02/18 16:22 Metamyelocytes % 0 % 08/02/18 16:22 Myelocytes % 0 % 08/02/18 16:22 Promyelocytes % 0 % 08/02/18 16:22 Blast Cells % 0 % 08/02/18 16:22 Nucleated RBC % Not Reportable 08/02/18 16:22 Seg Neutrophils # 8.5 K/mm3 (1.8-7.7) H 08/09/18 05:35 Seg Neutrophils # Man 9.9 K/mm3 (1.8-7.7) H 08/02/18 16:22 Band Neutrophils # 0.0 K/mm3 08/02/18 16:22 Lymphocytes # (Manual) 0.6 K/mm3 (1.2-5.4) L 08/02/18 16:22 Abs React Lymphs (Man) 0.0 K/mm3 08/02/18 16:22 Monocytes # (Manual) 0.0 K/mm3 (0.0-0.8) 08/02/18 16:22 Eosinophils # (Manual) 0.0 K/mm3 (0.0-0.4) 08/02/18 16:22 Basophils # (Manual) 0.0 K/mm3 (0.0-0.1) 08/02/18 16:22 Metamyelocytes # 0.0 K/mm3 08/02/18 16:22 Myelocytes # 0.0 K/mm3 08/02/18 16:22 Promyelocytes # 0.0 K/mm3 08/02/18 16:22 Blast Cells # 0.0 K/mm3 08/02/18 16:22 WBC Morphology Not Reportable 08/02/18 16:22 Hypersegmented Neuts Not Reportable 08/02/18 16:22 Hyposegmented Neuts Not Reportable 08/02/18 16:22 Hypogranular Neuts Not Reportable 08/02/18 16:22 Smudge Cells Not Reportable 08/02/18 16:22 Toxic Granulation Not Reportable 08/02/18 16:22 Toxic Vacuolation Not Reportable 08/02/18 16:22 Dohle Bodies Not Reportable 08/02/18 16:22 Pelger-Huet Anomaly Not Reportable 08/02/18 16:22 Evelina Rods Not Reportable 08/02/18 16:22 Platelet Estimate Consistent w auto 08/02/18 16:22 Clumped Platelets Not Reportable 08/02/18 16:22 Plt Clumps, EDTA Not Reportable 08/02/18 16:22 Large Platelets 1+ 08/02/18 16:22 Giant Platelets Not Reportable 08/02/18 16:22 Platelet Satelliting Not Reportable 08/02/18 16:22 Plt Morphology Comment Not Reportable 08/02/18 16:22 RBC Morphology Not Reportable 08/02/18 16:22 Dimorphic RBCs Not Reportable 08/02/18 16:22 Polychromasia Not Reportable 08/02/18 16:22 Hypochromasia 1+ 08/02/18 16:22 Poikilocytosis Not Reportable 08/02/18 16:22 Anisocytosis 1+ 08/02/18 16:22 Microcytosis Not Reportable 08/02/18 16:22 Macrocytosis Not Reportable 08/02/18 16:22 Spherocytes Not Reportable 08/02/18 16:22 Pappenheimer Bodies Not Reportable 08/02/18 16:22 Sickle Cells Not Reportable 08/02/18 16:22 Target Cells Not Reportable 08/02/18 16:22 Tear Drop Cells Not Reportable 08/02/18 16:22 Ovalocytes Not Reportable 08/02/18 16:22 Helmet Cells Not Reportable 08/02/18 16:22 Eden-Portis Bodies Not Reportable 08/02/18 16:22 Dunnell Rings Not Reportable 08/02/18 16:22 Kiki Cells Not Reportable 08/02/18 16:22 Bite Cells Not Reportable 08/02/18 16:22 Crenated Cell Not Reportable 08/02/18 16:22 Elliptocytes Not Reportable 08/02/18 16:22 Acanthocytes (Spur) Not Reportable 08/02/18 16:22 Rouleaux Not Reportable 08/02/18 16:22 Hemoglobin C Crystals Not Reportable 08/02/18 16:22 Schistocytes Not Reportable 08/02/18 16:22 Malaria parasites Not Reportable 08/02/18 16:22 Abraham Bodies Not Reportable 08/02/18 16:22 Hem Pathologist Commnt No 08/02/18 16:22 PT 14.4 Sec. (12.2-14.9) 08/01/18 11:30 INR 1.05 (0.87-1.13) 08/01/18 11:30 APTT 23.5 Sec. (24.2-36.6) L 08/01/18 11:30 POC ABG pH 7.403 (7.35-7.45) 08/02/18 09:07 POC ABG pCO2 43.2 (35-45) 08/02/18 09:07 POC ABG pO2 125 (80-105) H 08/02/18 09:07 POC ABG HCO3 26.9 08/02/18 09:07 POC ABG Total CO2 28 08/02/18 09:07 POC ABG O2 Sat 99 08/02/18 09:07 POC ABG Base Excess 2 08/02/18 09:07 FiO2 30 % 08/02/18 09:07 Sodium 132 mmol/L (137-145) L 08/11/18 10:22 Potassium 4.2 mmol/L (3.6-5.0) 08/11/18 10:22 Chloride 89.8 mmol/L (98-107) L 08/11/18 10:22 Carbon Dioxide 25 mmol/L (22-30) 08/11/18 10:22 Anion Gap 21 mmol/L 08/11/18 10:22 BUN 61 mg/dL (7-17) H 08/11/18 10:22 Creatinine 7.1 mg/dL (0.7-1.2) H 08/11/18 10:22 Estimated GFR 7 ml/min 08/11/18 10:22 BUN/Creatinine Ratio 9 % 08/11/18 10:22 Glucose 187 mg/dL (65-100) H 08/11/18 10:22 POC Glucose 185 (70-105) H 08/11/18 05:35 Hemoglobin A1c 5.3 % (4-6) 08/01/18 19:56 Calcium 9.0 mg/dL (8.4-10.2) 08/11/18 10:22 Magnesium 2.80 mg/dL (1.7-2.3) H 08/01/18 19:56 Total Bilirubin 0.30 mg/dL (0.1-1.2) 08/09/18 05:35 AST 18 units/L (5-40) 08/09/18 05:35 ALT 11 units/L (7-56) 08/09/18 05:35 Alkaline Phosphatase 101 units/L (35-129) 08/09/18 05:35 C-Reactive Protein 14.30 mg/dL (0.00-1.30) H 08/10/18 20:30 Total Protein 6.4 g/dL (6.3-8.2) 08/09/18 05:35 Albumin 2.0 g/dL (3.9-5) L 08/09/18 05:35 Albumin/Globulin Ratio 0.5 % 08/09/18 05:35 Prealbumin 0.277 g/L (0.200-0.400) 08/01/18 19:56 Nutrition/Malnutrition Assess - Dietary Evaluation Nutrition/Malnutrition Findings: Nutrition Notes Start: 08/02/18 16:33 Freq: Status: Active Protocol: Document 08/11/18 10:48 SA (Rec: 08/11/18 10:55 SA [id number]) Co-Sign 08/11/18 10:48 LP Nutrition Notes Need for Assessment generated from: MD Order Initial or Follow up Reassessment Current Diagnosis CKD (stage V CKD) Diabetes Hypertension Respiratory Failure Other Pertinent Diagnosis ESRD on HD Current Diet NPO Labs/Tests Na: 133 Chl: 90.4 BUN: 57 Cr: 6.5 Glu: 184 Pertinent Medications Reviewed Height 5 ft 6 in Weight 95 kg [place] Body Weight (kg) 59.09 BMI 33.7 Weight Status Morbidly Obese Subjective/Other Information MD consult for write/manage TF . Patient not in room at time of visit. Patient has PEG. Percent of energy/protein needs met: 0%/0% Burn Absent Trauma Absent #1 Nutrition Diagnosis Inadequate oral intake Diagnosis Progress(for reassessment Continues documentation) Is patient on ventilator? No Is Patient Ambulatory and/or Out of Bed No REE-([place]-confined to bed) 1866.432 Kcal/Kg value to use for calculation 17 Approximate Energy Requirements Using 1615 kcal/Kg Calculation [facility]ations [facility] or Additional Notes Protein needs: 89-96g (1.2-1. 3g/kg AdjBW) AdjBW: 74kg Fluid: 1 L or per MD Nutrition Intervention Nutrition Support: Nepro at 40mL/hr with 50mL flush q4h or per MD Kcal 1,728 Protein (gm) 78 Fluid (mL) 698 Goal #1 TF to continue to meet at least 75% of energy and protein needs Anticipated Discharge Needs: Nepro at 40mL/hr with 50mL flush q4h or per MD order Follow-Up By: 08/16/18 Additional Comments F/U: TF tolerance and stable TF
[2018-08-11] MEDS: DUONEB *Not for PRN Use IH SCH ×2 (13:49→20:26)
[2018-08-11] MEDS: ZINC SULFATE PO SCH (17:32)
[2018-08-12] MEDS: IMODIUM PO SCH ×6 (01:35→23:11)
[2018-08-12] MEDS: HumaLOG SUB-Q SCH ×6 (01:41→23:32)
[2018-08-12] MEDS: ZYVOX 600MG/300ML 600 MG/300 ML BAG IV SCH ×2 (05:33→19:02)
[2018-08-12] MEDS: ZOSYN/NS 2.25 GM/50ML 2.25 GM/50 ML BAG IV SCH ×3 (05:33→22:48)
[2018-08-12] MEDS: HEPARIN SUB-Q SCH ×3 (05:35→22:48)
[2018-08-12] MEDS: PERCOCET 5/325 PO PRN (05:44)
[2018-08-12 06:11] LABS: Basophils # (Auto) 0.1 K/mm3 (0.0-0.1); Basophils % (Auto) 0.6 % (0.0-1.8); Eosinophils # (Auto) 0.3 K/mm3 (0.0-0.4); Eosinophils % (Auto) 2.9 % (0.0-4.3); Hematocrit 20.7 % (30.3-42.9); Hemoglobin 6.8 gm/dl (10.1-14.3); Lymphocytes # (Auto) 1.3 K/mm3 (1.2-5.4); Lymphocytes % (Auto) 12.8 % (13.4-35.0); Mean Corpuscular HGB Conc 33 % (30-34); Mean Corpuscular Volume 94 fl (79-97); Monocytes # (Auto) 0.9 K/mm3 (0.0-0.8); Monocytes % (Auto) 8.8 % (0.0-7.3); Platelet Count 386 K/mm3 (140-440); Red Cell Distribution Width 16.7 % (13.2-15.2)
[2018-08-12] MEDS: DUONEB *Not for PRN Use IH SCH ×3 (07:26→19:27)
--- NOTE | 2018-08-12 08:36 | Progress Note ---
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 On admission, she had severe hypotension preceding bradyarythmia leading to PEA arrest on 07/18/2018. Re-admitted on 08/01/18 due to increasing SOB and congestion from Trach site. Now with SIRS: 1) Sepsis: Resolved. Etiology unclear, possibilities GPC bacteremia +/- infected stage IV sacral decubitus +/- HAP 2) GPC bacteremia: ? contaminant versus real ? source sacral decubitus. Blood cultures 08/09/2018 GPC 1 of 4 bottles, Repeat blood cultures ordered. CRP 13.3 3) HAP: Sputum 08/01/2018 Pseudomonas sens to zosyn. CXR initial 08/01 neg. Repeat CXR 08/09 patchy bibasilar infiltrates. Patient started on zyvox and zosyn. 4) Large sacral decubitus: with woundVAC. She is known to have stage IV sacral decubitus since first admission treated medically. Abdomen/Pelvis CT: Sacral ulcer as described. There are no convincing findings of abscess or osteomyelitis on noncontrast CT. 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 Large sacral decubitus: with woundVAC. Continue wound care. 6) History of recent aspiration pneumonia due to MDR Serratia treated with meropenem until 07/28/18 7) ESRD: On HD MWF- Thrombosed left arm AVG. Angioplasty yesterday. Recommendations: - follow-up deep wound and buttock cultures - continue zyvox, D3 -continue zosyn, D4 - contact isolation - will ask if patient needs diverting colostomy --upon discharge will do IV antibiotics on dialysis for 3 weeks, waiting on ID and SAMIA to determine appropriate antimicrobial coverage Guarded prognosis consider palliative care Dr. Morales will be education paraprofessional this weekend, , please call for questions. [facility]AYNA [facility] M: [phone] O:[phone] Subjective Date of service: 08/12/18 Principal diagnosis: Ac on Ch hypoxemic Resp failure; Diabetes type II; ESRD on dialysis (M/W/F) Interval history: Patient seen and examined. Asleep, easily arousable, no acute distress observed. Receiving HD. Objective - Exam Narrative Exam: General appearance: Asleep, easily arousable non conversant Eyes: anicteric sclerae, moist conjunctivae; no lid-lag; PERRLA HENT: Atraumatic; oropharynx clear Neck: Trach Lungs: anayeli scattered rhonchi CV: RRR, no murmurs Abdomen: Soft, non-tender; +PEG Extremities: No peripheral edema or extremity lymphadenopathy Skin: sacral wound VAC Psych: Appropriate affect, alert and oriented to person, place and time. Neuro: alert non verbal - Constitutional Vitals: Vital Signs Temp Pulse Resp BP Pulse Ox 97.8 F 82 18 104/51 100 08/12/18 04:59 08/12/18 04:59 08/12/18 04:59 08/12/18 04:59 08/12/18 04:59 Temperature -Last 24 Hours Temperature 97.8 F Temperature 98.4 F Temperature 98.0 F - Labs CBC & Chem 7: 08/12/18 05:02 08/11/18 10:22 Labs: Abnormal lab results 08/11/18 08/11/18 08/11/18 Range/Units 10:22 10:22 11:01 RBC (3.65-5.03) M/mm3 Hgb 6.9 L (10.1-14.3) gm/dl Hct 20.7 L (30.3-42.9) % RDW (13.2-15.2) % Lymph % (Auto) (13.4-35.0) % Garza % (Auto) (0.0-7.3) % Garza # (0.0-0.8) K/mm3 Seg Neutrophils % (40.0-70.0) % Sodium 132 L (137-145) mmol/L Chloride 89.8 L (98-107) mmol/L BUN 61 H (7-17) mg/dL Creatinine 7.1 H (0.7-1.2) mg/dL Glucose 187 H (65-100) mg/dL POC Glucose 197 H (70-105) 08/11/18 08/12/18 08/12/18 Range/Units 17:10 01:35 05:02 RBC 2.20 L (3.65-5.03) M/mm3 Hgb 6.8 L (10.1-14.3) gm/dl Hct 20.7 L (30.3-42.9) % RDW 16.7 H (13.2-15.2) % Lymph % (Auto) 12.8 L (13.4-35.0) % Garza % (Auto) 8.8 H (0.0-7.3) % Garza # 0.9 H (0.0-0.8) K/mm3 Seg Neutrophils % 74.9 H (40.0-70.0) % Sodium (137-145) mmol/L Chloride (98-107) mmol/L BUN (7-17) mg/dL Creatinine (0.7-1.2) mg/dL Glucose (65-100) mg/dL POC Glucose 170 H 214 H (70-105) 08/12/18 Range/Units 05:09 RBC (3.65-5.03) M/mm3 Hgb (10.1-14.3) gm/dl Hct (30.3-42.9) % RDW (13.2-15.2) % Lymph % (Auto) (13.4-35.0) % Garza % (Auto) (0.0-7.3) % Garza # (0.0-0.8) K/mm3 Seg Neutrophils % (40.0-70.0) % Sodium (137-145) mmol/L Chloride (98-107) mmol/L BUN (7-17) mg/dL Creatinine (0.7-1.2) mg/dL Glucose (65-100) mg/dL POC Glucose 187 H (70-105)
[2018-08-12] MEDS ORDERED: NACL 0.9 (PRIMING MACHINE ONLY DIALYSIS) MC ONE (09:19)
[2018-08-12] MEDS: RENVELA PO SCH ×6 (09:42→19:08)
--- NOTE | 2018-08-12 09:47 | Progress Note ---
Assessment and Plan 1. ESRD: Continue hemodialysis three times a week, MWF schedule. 2. Thrombosed left arm AVG: S/p tunnel catheter. 3. Respiratory failure: Trached, on T-piece. 4. Anemia: Epogen with HD. 5. Hypotension: Midodrine. 6. Sepsis: Followed by ID. 7. H/o Cardiac arrest. 8. H/o CVA. 9. Anoxic encephalopathy. Subjective Date of service: 08/12/18 Principal diagnosis: Ac on Ch hypoxemic Resp failure; Diabetes type II; ESRD on dialysis (M/W/F) Interval history: Patient was seen and examined at the bedside while on hemodialysis. Objective - Vital Signs Vital signs: Vital Signs - 12hr 08/11/18 08/11/18 08/12/18 22:42 22:43 02:36 Temperature Pulse Rate 80 80 Respiratory Rate Blood Pressure 106/51 Blood Pressure 106/51 [Right] O2 Sat by Pulse 97 Oximetry O2 Sat by Pulse Oximetry [ Assessment] 08/12/18 08/12/18 02:37 04:59 Temperature 97.8 F Pulse Rate 82 Respiratory 18 Rate Blood Pressure 104/51 Blood Pressure [Right] O2 Sat by Pulse 100 Oximetry O2 Sat by Pulse 97 Oximetry [ Assessment] - General Appearance General appearance: well-developed, appears stated age, other (not in distress) EENT: ATNC Neck: other (Trached on T-piece) Respiratory: Present: Clear to Ascultation Cardiology: regular, S1S2, no murmurs Gastrointestinal: normoactive bowel sounds, no tenderness, no distended, other (PEG tube noted) Integumentary: no rash, warm and dry Neurologic: other (alert, not following command) - Lab 08/12/18 05:02 08/11/18 10:22 Most recent lab results Calcium 9.0 mg/dL (8.4-10.2) 08/11/18 10:22 Magnesium 2.80 mg/dL (1.7-2.3) H 08/01/18 19:56 Medications & Allergies - Medications Allergies/Adverse Reactions: Allergies ondansetron Allergy (Verified 08/01/18 11:00) Anaphylaxis sulfamethoxazole [From Bactrim] Allergy (Verified 08/01/18 11:00) Anaphylaxis trimethoprim [From Bactrim] Allergy (Verified 08/01/18 11:00) Anaphylaxis vancomycin Allergy (Verified 08/01/18 11:00) Anaphylaxis Home Medications: Home Medications Medication Instructions Recorded Confirmed Last Taken Type ALBUTEROL NEB's [Proventil 0.083% 3 ml IH Q4HR 07/26/18 08/01/18 Unknown History NEBS] Metoprolol [Lopressor TAB] 25 mg PO BID tablet 07/29/18 08/01/18 Unknown Rx amLODIPine [Norvasc] 5 mg PO QDAY tablet 07/29/18 08/01/18 Unknown Rx Amiodarone HCl [Pacerone] 200 mg PO DAILY 08/01/18 08/01/18 Unknown History Aspirin [Adult Aspirin] 81 mg PO DAILY 08/01/18 08/01/18 Unknown History Carvedilol [Coreg] 12.5 mg PO BID 08/01/18 08/01/18 Unknown History Famotidine 20 mg PO DAILY 08/01/18 08/01/18 Unknown History Gabapentin [Gralise] 30 mg PO QHS 08/01/18 08/01/18 Unknown History Lispro Insulin [Humalog] 0 unit SQ TID 08/01/18 08/01/18 Unknown History Loperamide [Imodium] 2 mg PO Q6H 08/01/18 08/01/18 Unknown History Sevelamer Carbonate [Renvela] 800 mg PO TIDWM 08/01/18 08/01/18 Unknown History Zinc Sulfate 220 mg PO DAILY 08/01/18 08/01/18 Unknown History Acetaminophen [Acetaminophen TAB] 650 mg PO Q4H PRN #15 tablet 08/09/18 Unknown Rx Midodrine [Proamatine] 10 mg PO BID #60 tablet 08/09/18 Unknown Rx QUEtiapine [SEROquel] 25 mg PO BID@0800,1700 #60 tablet 08/09/18 Unknown Rx QUEtiapine [SEROquel] 50 mg PO QHS #30 tablet 08/09/18 Unknown Rx Simple Syrup 30 ml FEEDTUBE PRN PRN #30 08/09/18 Unknown Rx oral.liqd Sodium Bicarbonate 325 mg FEEDTUBE PRN PRN #30 tablet 08/09/18 Unknown Rx Active Medications: Generic Name Dose Route Start Last Admin Trade Name Freq PRN Reason Stop Dose Admin Acetaminophen 650 mg 08/01/18 19:44 08/08/18 21:10 Tylenol PO 650 mg Q4H PRN Administration Pain MILD(1-3)/Fever >100.5/CASAREZ Albuterol/Ipratropium 1 ampul 08/02/18 14:00 08/12/18 07:26 Duoneb *Not For Prn Use* IH 1 ampul TIDRT SERENITY Administration Amiodarone HCl 200 mg 08/01/18 22:00 08/11/18 12:00 Cordarone PO 200 mg DAILY SERENITY Administration Lipase/Protease/Amylase 1 each 08/04/18 10:24 Dominique Jerome 10,500 Unit FEEDTUBE PRN PRN For Clogged Feeding Tube Lipase/Protease/Amylase 1 each 08/11/18 11:20 Dominique Jerome 10,500 Unit FEEDTUBE PRN PRN For Clogged Feeding Tube Aspirin 81 mg 08/01/18 22:00 08/11/18 11:59 Halfprin Ec PO 81 mg DAILY SERENITY Administration Epoetin Beka 20,000 unit 08/02/18 10:41 08/10/18 16:04 Procrit SUB-Q 20,000 unit ANJANA PRN Administration hemodialysis Famotidine 20 mg 08/01/18 22:00 08/11/18 11:59 Pepcid PO 20 mg DAILY SERENITY Administration Heparin Sodium (Porcine) 5,000 unit 08/03/18 14:00 08/12/18 05:35 Heparin SUB-Q 5,000 unit Q8HR SERENITY Administration Sodium Chloride 100 mls @ 999 mls/hr 08/02/18 09:40 Nacl 0.9% IV ANJANA PRN Hypotension Piperacillin Sod/Tazobactam Sod 2.25 gm in 50 mls @ 100 mls/hr 08/09/18 14:00 08/12/18 05:33 Zosyn/Ns 2.25 Gm/50ml IV 100 mls/hr Q8HR SERENITY Administration Linezolid 600 mg in 300 mls @ 300 mls/hr 08/10/18 18:00 08/12/18 05:33 Zyvox 600mg/300ml IV 300 mls/hr Q12H SERENITY Administration Protocol Insulin Human Lispro 0 unit 08/02/18 08:00 08/12/18 06:33 Humalog SUB-Q 2 unit Q6HR SERENITY Administration Protocol Loperamide HCl 2 mg 08/01/18 22:00 08/12/18 05:34 Imodium PO 2 mg Q6HR SERENITY Administration Metoprolol Tartrate 25 mg 08/01/18 22:00 08/11/18 22:42 Lopressor PO Not Given BID SERENITY Midodrine 10 mg 08/09/18 11:00 08/11/18 22:29 Proamatine PO 10 mg BID SERENITY Administration Oxycodone/Acetaminophen 1 tab 08/10/18 23:10 08/12/18 05:44 Percocet 5/325 PO 1 tab Q6H PRN Administration Pain, Moderate (4-6) Quetiapine Fumarate 50 mg 08/05/18 22:00 08/11/18 22:30 Seroquel PO 50 mg QHS SERENITY Administration Quetiapine Fumarate 25 mg 08/08/18 08:00 08/12/18 09:46 Seroquel PO 25 mg BID@0800,1700 SERENITY Administration Sevelamer Carbonate 800 mg 08/02/18 08:00 08/12/18 09:46 Renvela PO 800 mg TIDWM SERENITY Administration Simple Syrup 15 ml 08/04/18 10:24 Simple Syrup FEEDTUBE PRN PRN Hypoglycemia Simple Syrup 30 ml 08/04/18 10:24 Simple Syrup FEEDTUBE PRN PRN Hypoglycemia Simple Syrup 15 ml 08/11/18 11:20 Simple Syrup FEEDTUBE PRN PRN Hypoglycemia Simple Syrup 30 ml 08/11/18 11:20 Simple Syrup FEEDTUBE PRN PRN Hypoglycemia Sodium Bicarbonate 325 mg 08/04/18 10:24 Sodium Bicarbonate FEEDTUBE PRN PRN For Clogged Feeding Tube Sodium Bicarbonate 325 mg 08/11/18 11:20 Sodium Bicarbonate FEEDTUBE PRN PRN For Clogged Feeding Tube Sodium Chloride 10 ml 08/01/18 22:00 08/11/18 22:34 Sodium Chloride Flush Syringe 10 Ml IV 10 ml BID SERENITY Administration Sodium Chloride 10 ml 08/01/18 19:44 Sodium Chloride Flush Syringe 10 Ml IV PRN PRN LINE FLUSH Zinc Sulfate 220 mg 08/02/18 10:00 08/11/18 17:32 Zinc Sulfate PO 220 mg DAILY SERENITY Administration
[2018-08-12] MEDS: PROCRIT SUB-Q PRN (12:50)
[2018-08-12] MEDS: LOPRESSOR PO SCH ×2 (13:53→23:08)
[2018-08-12] MEDS: PEPCID PO SCH (14:30)
[2018-08-12] MEDS: HALFPRIN EC PO SCH ×2 (14:30→14:31)
[2018-08-12] MEDS: PROAMATINE PO SCH ×2 (14:31→22:49)
[2018-08-12] MEDS: SODIUM CHLORIDE FLUSH SYRINGE 10 ML IV SCH ×2 (14:32→22:49)
[2018-08-12] MEDS: CORDARONE PO SCH (14:33)
--- NOTE | 2018-08-12 14:48 | Event Note ---
Date: 08/12/18 Physician Attestation: I have seen and examined patient. I personally discussed and directed assessment and management with TRIAGE REGISTER NURSE Wilfrid. Patient is clinically better. Fever and leukocytosis resolved. Noted necrotizing soft tissue infection on debridement note. Wound cx growing Staph, E faecalis and GNR. Will do IV abx on HD for [address] Zapata to determine if she is a candidate for diverting ostomy. Currently she has a rectal tube. Bhargavi Jaquez MD Infectious Diseases Basket Mender [facility], [place], [facility] M [phone]
[2018-08-12] MEDS: ZINC SULFATE PO SCH ×2 (19:02→19:05)
--- NOTE | 2018-08-12 21:23 | Progress Note ---
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 Patient was recently discharged from this facility on Jul 29 after 11 day stay for multiple problems including Sepsis, aspiration pneumonia, Encephalopathy, and Resp failure, ESRD. Patient was sent from [place] again on 08/01/18 for Low O2 sats which Improved to 100% after proper suctioning. Daughter felt that her mother is not being suctioned properly, requested placement to different facility, but no other acceptance. /HD access malfunction, thrombosed s/p thromboectomy: going for perm-a-cath today /Acute on chronic respiratory failure with hypoxia, Sec to improper or delayed suctioning at [facility], Daughter wants a different SNF, Patient has been optimized to a large extent and discharged on Jul 29,breathing treatments, t-tube suction /Aspiration Pneumonitis with Sepsis, poa: continue abx, ID is following /Sepsis poa, GPC bacteremia +/- infected stage IV sacral decubitus +/- HAP: on Abx, ID managing /HAP: Sputum 08/01/2018 Pseudomonas sens to zosyn. ID following, CXR initial 08/01 neg. Repeat CXR 08/09 patchy bibasilar infiltrates. Patient started on zyvox and zosyn. /ESRD needing dialysis, continue HD per renal, Nephrology consulted /IDDM (insulin dependent diabetes mellitus): continue sliding scale coverage with T-feeding diet /HTN (hypertension), now hypotensive, give bolus, continue antihypertensives /GERD (gastroesophageal reflux disease), Cont PPI's /Large sacral decubitus with wound VAC, poa. She is known to have stage IV sacral decubitus since first admission treated medically: s/p Debridement of necrotic SQ tissue, fascia and muscle from stage 4 sacral pressure ulcer 08/11/18. ID ordered CT abd/pelvis which showed no abscess/osteomyelitis. /DVT prophylaxis, placed on heparin Disposition: continue inpatient, d/c back to [facility]-->awaiting on cultures to finalize per ID History Interval history: Patient was seen and examined. Follow-up on current diagnosis of Aspiration Pneumonia. Overnight uneventful. Patient is nonverbal. Imaging, nursing note, chart, labs and old chart reviewed. Discussed with patient. Hospitalist Physical - Physical exam Narrative exam: Gen: chronic disability, ill appearing, NAD, Awake, HEENT: NCAT, trach in place Neck: supple, no adenopathy, no thyromegaly, no JVD CVS/Heart: RRR, normal S1S2, pulses present bilaterally Chest/Lungs: CTA B, Symmetrical chest expansion, good air entry bilaterally GI/Abdomen: soft, NTND, PEG in place, good bowel sounds, no guarding or rebound /Bladder: no suprapubic tenderness, no CVA or paraspinal tenderness Extermity/Skin: no c/c/e, no obvious rash MSK: strophic contracted legs Neuro: CN 2-12 grossly intact, no new focal deficits, doesn't follow commands Psych: calm - Constitutional Vitals: Temp Pulse Resp BP Pulse Ox 98.8 F 91 H 15 135/57 100 08/12/18 16:42 08/12/18 19:40 08/12/18 19:40 08/12/18 16:42 08/12/18 19:39 General appearance: Present: well-nourished Results - Labs CBC & Chem 7: 08/12/18 05:02 08/11/18 10:22 Labs: Laboratory Last Values WBC 10.0 K/mm3 (4.5-11.0) 08/12/18 05:02 RBC 2.20 M/mm3 (3.65-5.03) L 08/12/18 05:02 Hgb 6.8 gm/dl (10.1-14.3) L 08/12/18 05:02 Hct 20.7 % (30.3-42.9) L 08/12/18 05:02 MCV 94 fl (79-97) 08/12/18 05:02 MCH 31 pg (28-32) 08/12/18 05:02 MCHC 33 % (30-34) 08/12/18 05:02 RDW 16.7 % (13.2-15.2) H 08/12/18 05:02 Plt Count 386 K/mm3 (140-440) 08/12/18 05:02 Lymph % (Auto) 12.8 % (13.4-35.0) L 08/12/18 05:02 Williams % (Auto) 8.8 % (0.0-7.3) H 08/12/18 05:02 Eos % (Auto) 2.9 % (0.0-4.3) 08/12/18 05:02 Baso % (Auto) 0.6 % (0.0-1.8) 08/12/18 05:02 Lymph # 1.3 K/mm3 (1.2-5.4) 08/12/18 05:02 Williams # 0.9 K/mm3 (0.0-0.8) H 08/12/18 05:02 Eos # 0.3 K/mm3 (0.0-0.4) 08/12/18 05:02 Baso # 0.1 K/mm3 (0.0-0.1) 08/12/18 05:02 Add Manual Diff Complete 08/02/18 16:22 Total Counted 100 08/02/18 16:22 Seg Neutrophils % 74.9 % (40.0-70.0) H 08/12/18 05:02 Seg Neuts % (Manual) 94.0 % (40.0-70.0) H 08/02/18 16:22 Band Neutrophils % 0 % 08/02/18 16:22 Lymphocytes % (Manual) 6.0 % (13.4-35.0) L 08/02/18 16:22 Reactive Lymphs % (Man) 0 % 08/02/18 16:22 Monocytes % (Manual) 0 % (0.0-7.3) 08/02/18 16:22 Eosinophils % (Manual) 0 % (0.0-4.3) 08/02/18 16:22 Basophils % (Manual) 0 % (0.0-1.8) 08/02/18 16:22 Metamyelocytes % 0 % 08/02/18 16:22 Myelocytes % 0 % 08/02/18 16:22 Promyelocytes % 0 % 08/02/18 16:22 Blast Cells % 0 % 08/02/18 16:22 Nucleated RBC % Not Reportable 08/02/18 16:22 Seg Neutrophils # 7.5 K/mm3 (1.8-7.7) 08/12/18 05:02 Seg Neutrophils # Man 9.9 K/mm3 (1.8-7.7) H 08/02/18 16:22 Band Neutrophils # 0.0 K/mm3 08/02/18 16:22 Lymphocytes # (Manual) 0.6 K/mm3 (1.2-5.4) L 08/02/18 16:22 Abs React Lymphs (Man) 0.0 K/mm3 08/02/18 16:22 Monocytes # (Manual) 0.0 K/mm3 (0.0-0.8) 08/02/18 16:22 Eosinophils # (Manual) 0.0 K/mm3 (0.0-0.4) 08/02/18 16:22 Basophils # (Manual) 0.0 K/mm3 (0.0-0.1) 08/02/18 16:22 Metamyelocytes # 0.0 K/mm3 08/02/18 16:22 Myelocytes # 0.0 K/mm3 08/02/18 16:22 Promyelocytes # 0.0 K/mm3 08/02/18 16:22 Blast Cells # 0.0 K/mm3 08/02/18 16:22 WBC Morphology Not Reportable 08/02/18 16:22 Hypersegmented Neuts Not Reportable 08/02/18 16:22 Hyposegmented Neuts Not Reportable 08/02/18 16:22 Hypogranular Neuts Not Reportable 08/02/18 16:22 Smudge Cells Not Reportable 08/02/18 16:22 Toxic Granulation Not Reportable 08/02/18 16:22 Toxic Vacuolation Not Reportable 08/02/18 16:22 Dohle Bodies Not Reportable 08/02/18 16:22 Pelger-Huet Anomaly Not Reportable 08/02/18 16:22 Evelina Rods Not Reportable 08/02/18 16:22 Platelet Estimate Consistent w auto 08/02/18 16:22 Clumped Platelets Not Reportable 08/02/18 16:22 Plt Clumps, EDTA Not Reportable 08/02/18 16:22 Large Platelets 1+ 08/02/18 16:22 Giant Platelets Not Reportable 08/02/18 16:22 Platelet Satelliting Not Reportable 08/02/18 16:22 Plt Morphology Comment Not Reportable 08/02/18 16:22 RBC Morphology Not Reportable 08/02/18 16:22 Dimorphic RBCs Not Reportable 08/02/18 16:22 Polychromasia Not Reportable 08/02/18 16:22 Hypochromasia 1+ 08/02/18 16:22 Poikilocytosis Not Reportable 08/02/18 16:22 Anisocytosis 1+ 08/02/18 16:22 Microcytosis Not Reportable 08/02/18 16:22 Macrocytosis Not Reportable 08/02/18 16:22 Spherocytes Not Reportable 08/02/18 16:22 Pappenheimer Bodies Not Reportable 08/02/18 16:22 Sickle Cells Not Reportable 08/02/18 16:22 Target Cells Not Reportable 08/02/18 16:22 Tear Drop Cells Not Reportable 08/02/18 16:22 Ovalocytes Not Reportable 08/02/18 16:22 Helmet Cells Not Reportable 08/02/18 16:22 [place] Bodies Not Reportable 08/02/18 16:22 [place] Rings Not Reportable 08/02/18 16:22 [place] Cells Not Reportable 08/02/18 16:22 Bite Cells Not Reportable 08/02/18 16:22 Crenated Cell Not Reportable 08/02/18 16:22 Elliptocytes Not Reportable 08/02/18 16:22 Acanthocytes (Spur) Not Reportable 08/02/18 16:22 Rouleaux Not Reportable 08/02/18 16:22 Hemoglobin C Crystals Not Reportable 08/02/18 16:22 Schistocytes Not Reportable 08/02/18 16:22 Malaria parasites Not Reportable 08/02/18 16:22 Abraham Bodies Not Reportable 08/02/18 16:22 Hem Pathologist Commnt No 08/02/18 16:22 PT 14.4 Sec. (12.2-14.9) 08/01/18 11:30 INR 1.05 (0.87-1.13) 08/01/18 11:30 APTT 23.5 Sec. (24.2-36.6) L 08/01/18 11:30 POC ABG pH 7.403 (7.35-7.45) 08/02/18 09:07 POC ABG pCO2 43.2 (35-45) 08/02/18 09:07 POC ABG pO2 125 (80-105) H 08/02/18 09:07 POC ABG HCO3 26.9 08/02/18 09:07 POC ABG Total CO2 28 08/02/18 09:07 POC ABG O2 Sat 99 08/02/18 09:07 POC ABG Base Excess 2 08/02/18 09:07 FiO2 30 % 08/02/18 09:07 Sodium 132 mmol/L (137-145) L 08/11/18 10:22 Potassium 4.2 mmol/L (3.6-5.0) 08/11/18 10:22 Chloride 89.8 mmol/L (98-107) L 08/11/18 10:22 Carbon Dioxide 25 mmol/L (22-30) 08/11/18 10:22 Anion Gap 21 mmol/L 08/11/18 10:22 BUN 61 mg/dL (7-17) H 08/11/18 10:22 Creatinine 7.1 mg/dL (0.7-1.2) H 08/11/18 10:22 Estimated GFR 7 ml/min 08/11/18 10:22 BUN/Creatinine Ratio 9 % 08/11/18 10:22 Glucose 187 mg/dL (65-100) H 08/11/18 10:22 POC Glucose 187 (70-105) H 08/12/18 16:42 Hemoglobin A1c 5.3 % (4-6) 08/01/18 19:56 Calcium 9.0 mg/dL (8.4-10.2) 08/11/18 10:22 Magnesium 2.80 mg/dL (1.7-2.3) H 08/01/18 19:56 Total Bilirubin 0.30 mg/dL (0.1-1.2) 08/09/18 05:35 AST 18 units/L (5-40) 08/09/18 05:35 ALT 11 units/L (7-56) 08/09/18 05:35 Alkaline Phosphatase 101 units/L (35-129) 08/09/18 05:35 C-Reactive Protein 14.30 mg/dL (0.00-1.30) H 08/10/18 20:30 Total Protein 6.4 g/dL (6.3-8.2) 08/09/18 05:35 Albumin 2.0 g/dL (3.9-5) L 08/09/18 05:35 Albumin/Globulin Ratio 0.5 % 08/09/18 05:35 Prealbumin 0.277 g/L (0.200-0.400) 08/01/18 19:56 Nutrition/Malnutrition Assess - Dietary Evaluation Nutrition/Malnutrition Findings: Nutrition Notes Start: 08/02/18 16:33 Freq: Status: Active Protocol: Document 08/11/18 10:48 SA (Rec: 08/11/18 10:55 SA [id number]) Co-Sign 08/11/18 10:48 LP Nutrition Notes Need for Assessment generated from: MD Order Initial or Follow up Reassessment Current Diagnosis CKD (stage V CKD) Diabetes Hypertension Respiratory Failure Other Pertinent Diagnosis ESRD on HD Current Diet NPO Labs/Tests Na: 133 Chl: 90.4 BUN: 57 Cr: 6.5 Glu: 184 Pertinent Medications Reviewed Height 5 ft 6 in Weight 95 kg [place] Body Weight (kg) 59.09 BMI 33.7 Weight Status Morbidly Obese Subjective/Other Information MD consult for write/manage TF . Patient not in room at time of visit. Patient has PEG. Percent of energy/protein needs met: 0%/0% Burn Absent Trauma Absent #1 Nutrition Diagnosis Inadequate oral intake Diagnosis Progress(for reassessment Continues documentation) Is patient on ventilator? No Is Patient Ambulatory and/or Out of Bed No REE-([facility]-confined to bed) 1866.432 Kcal/Kg value to use for calculation 17 Approximate Energy Requirements Using 1615 kcal/Kg Calculation Used for Recommendations [facility] Additional Notes Protein needs: 89-96g (1.2-1. 3g/kg AdjBW) AdjBW: 74kg Fluid: 1 L or per MD Nutrition Intervention Nutrition Support: Nepro at 40mL/hr with 50mL flush q4h or per MD Kcal 1,728 Protein (gm) 78 Fluid (mL) 698 Goal #1 TF to continue to meet at least 75% of energy and protein needs Anticipated Discharge Needs: Nepro at 40mL/hr with 50mL flush q4h or per MD order Follow-Up By: 08/16/18 Additional Comments F/U: TF tolerance and stable TF
[2018-08-13] MEDS: IMODIUM PO SCH ×4 (05:25→23:35)
[2018-08-13] MEDS: HEPARIN SUB-Q SCH (05:25)
[2018-08-13] MEDS: ZYVOX 600MG/300ML 600 MG/300 ML BAG IV SCH ×2 (05:26→17:47)
[2018-08-13] MEDS: ZOSYN/NS 2.25 GM/50ML 2.25 GM/50 ML BAG IV SCH ×3 (05:26→21:18)
[2018-08-13 05:56] LABS: Hemoglobin 6.3 gm/dl (10.1-14.3)
[2018-08-13] MEDS ORDERED: NACL 0.9% 500 ML 500 ML IV ONE (06:05)
--- NOTE | 2018-08-13 06:05 | Progress Note ---
Assessment and Plan 1. ESRD: Continue hemodialysis three times a week, MWF schedule. 2. Thrombosed left arm AVG: S/p tunnel catheter. 3. Respiratory failure: Trached, on T-piece. 4. Anemia: One unit of PRBC today. Epogen with HD. 5. Hypotension: Midodrine. 6. Sepsis: Followed by ID. 7. H/o Cardiac arrest. 8. H/o CVA. 9. Anoxic encephalopathy. Subjective Date of service: 08/13/18 Principal diagnosis: Ac on Ch hypoxemic Resp failure; Diabetes type II; ESRD on dialysis (M/W/F) Interval history: Patient was seen and examined at the bedside. Objective - Vital Signs Vital signs: Vital Signs - 12hr 08/12/18 08/12/18 08/12/18 19:27 19:39 19:40 Temperature Pulse Rate Pulse Rate [ 95 H 91 H Posterior Bilateral Throughout] Respiratory Rate Respiratory 16 15 Rate [Posterior Bilateral Throughout] Blood Pressure O2 Sat by Pulse 100 Oximetry O2 Sat by Pulse Oximetry [ Assessment] 08/12/18 08/12/18 08/12/18 23:08 23:45 23:58 Temperature 99.0 F Pulse Rate 88 85 Pulse Rate [ Posterior Bilateral Throughout] Respiratory 16 Rate Respiratory Rate [Posterior Bilateral Throughout] Blood Pressure 117/49 107/50 O2 Sat by Pulse 99 Oximetry O2 Sat by Pulse 99 Oximetry [ Assessment] - General Appearance General appearance: well-developed, appears stated age, other (not in distress, left IJ tunnel catheter) EENT: ATNC Neck: other (Trached, on T-piece) Respiratory: Present: Clear to Ascultation Cardiology: regular, S1S2, no murmurs Gastrointestinal: normoactive bowel sounds, no tenderness, no distended, other (PEG tube noted) Integumentary: no rash, warm and dry Neurologic: other (alert, not following any command) Musculoskeletal: other (no edema) - Lab 08/13/18 05:39 08/11/18 10:22 Most recent lab results Calcium 9.0 mg/dL (8.4-10.2) 08/11/18 10:22 Magnesium 2.80 mg/dL (1.7-2.3) H 08/01/18 19:56 Medications & Allergies - Medications Allergies/Adverse Reactions: Allergies ondansetron Allergy (Verified 08/01/18 11:00) Anaphylaxis sulfamethoxazole [From Bactrim] Allergy (Verified 08/01/18 11:00) Anaphylaxis trimethoprim [From Bactrim] Allergy (Verified 08/01/18 11:00) Anaphylaxis vancomycin Allergy (Verified 08/01/18 11:00) Anaphylaxis Home Medications: Home Medications Medication Instructions Recorded Confirmed Last Taken Type ALBUTEROL NEB's [Proventil 0.083% 3 ml IH Q4HR 07/26/18 08/01/18 Unknown History NEBS] Metoprolol [Lopressor TAB] 25 mg PO BID tablet 07/29/18 08/01/18 Unknown Rx amLODIPine [Norvasc] 5 mg PO QDAY tablet 07/29/18 08/01/18 Unknown Rx Amiodarone HCl [Pacerone] 200 mg PO DAILY 08/01/18 08/01/18 Unknown History Aspirin [Adult Aspirin] 81 mg PO DAILY 08/01/18 08/01/18 Unknown History Carvedilol [Coreg] 12.5 mg PO BID 08/01/18 08/01/18 Unknown History Famotidine 20 mg PO DAILY 08/01/18 08/01/18 Unknown History Gabapentin [Gralise] 30 mg PO QHS 08/01/18 08/01/18 Unknown History Lispro Insulin [Humalog] 0 unit SQ TID 08/01/18 08/01/18 Unknown History Loperamide [Imodium] 2 mg PO Q6H 08/01/18 08/01/18 Unknown History Sevelamer Carbonate [Renvela] 800 mg PO TIDWM 08/01/18 08/01/18 Unknown History Zinc Sulfate 220 mg PO DAILY 08/01/18 08/01/18 Unknown History Acetaminophen [Acetaminophen TAB] 650 mg PO Q4H PRN #15 tablet 08/09/18 Unknown Rx Midodrine [Proamatine] 10 mg PO BID #60 tablet 08/09/18 Unknown Rx QUEtiapine [SEROquel] 25 mg PO BID@0800,1700 #60 tablet 08/09/18 Unknown Rx QUEtiapine [SEROquel] 50 mg PO QHS #30 tablet 08/09/18 Unknown Rx Simple Syrup 30 ml FEEDTUBE PRN PRN #30 08/09/18 Unknown Rx oral.liqd Sodium Bicarbonate 325 mg FEEDTUBE PRN PRN #30 tablet 08/09/18 Unknown Rx Active Medications: Generic Name Dose Route Start Last Admin Trade Name Freq PRN Reason Stop Dose Admin Acetaminophen 650 mg 08/01/18 19:44 08/08/18 21:10 Tylenol PO 650 mg Q4H PRN Administration Pain MILD(1-3)/Fever >100.5/CASAREZ Albuterol/Ipratropium 1 ampul 08/02/18 14:00 08/12/18 19:27 Duoneb *Not For Prn Use* IH 1 ampul TIDRT SERENITY Administration Amiodarone HCl 200 mg 08/01/18 22:00 08/12/18 14:33 Cordarone PO 200 mg DAILY SERENITY Administration Lipase/Protease/Amylase 1 each 08/11/18 11:20 Pancreaze 10,500 Unit FEEDTUBE PRN PRN For Clogged Feeding Tube Aspirin 81 mg 08/01/18 22:00 08/12/18 14:31 Halfprin Ec PO 81 mg DAILY SERENITY Administration Epoetin [place] 20,000 unit 08/02/18 10:41 08/12/18 12:50 Procrit SUB-Q 20,000 unit ANJANA PRN Administration hemodialysis Famotidine 20 mg 08/01/18 22:00 08/12/18 14:30 Pepcid PO 20 mg DAILY SERENITY Administration Heparin Sodium (Porcine) 5,000 unit 08/03/18 14:00 08/13/18 05:25 Heparin SUB-Q 5,000 unit Q8HR SERENITY Administration Sodium Chloride 100 mls @ 999 mls/hr 08/02/18 09:40 Nacl 0.9% IV ANJANA PRN Hypotension Piperacillin Sod/Tazobactam Sod 2.25 gm in 50 mls @ 100 mls/hr 08/09/18 14:00 08/13/18 05:26 Zosyn/Ns 2.25 Gm/50ml IV 100 mls/hr Q8HR SERENITY Administration Linezolid 600 mg in 300 mls @ 300 mls/hr 08/10/18 18:00 08/13/18 05:26 Zyvox 600mg/300ml IV 300 mls/hr Q12H SERENITY Administration Protocol Insulin Human Lispro 0 unit 08/02/18 08:00 08/12/18 23:32 Humalog SUB-Q 3 unit Q6HR SERENITY Administration Protocol Loperamide HCl 2 mg 08/01/18 22:00 08/13/18 05:25 Imodium PO 2 mg Q6HR SERENITY Administration Metoprolol Tartrate 25 mg 08/01/18 22:00 08/12/18 23:08 Lopressor PO Not Given BID SERENITY Midodrine 10 mg 08/09/18 11:00 08/12/18 22:49 Proamatine PO 10 mg BID SERENITY Administration Oxycodone/Acetaminophen 1 tab 08/10/18 23:10 08/12/18 05:44 Percocet 5/325 PO 1 tab Q6H PRN Administration Pain, Moderate (4-6) Quetiapine Fumarate 50 mg 08/05/18 22:00 08/12/18 22:49 Seroquel PO 50 mg QHS SERENITY Administration Quetiapine Fumarate 25 mg 08/08/18 08:00 08/12/18 19:03 Seroquel PO 25 mg BID@0800,1700 SERENITY Administration Sevelamer Carbonate 800 mg 08/02/18 08:00 08/12/18 19:08 Renvela PO 800 mg TIDWM SERENITY Administration Simple Syrup 15 ml 08/11/18 11:20 Simple Syrup FEEDTUBE PRN PRN Hypoglycemia Simple Syrup 30 ml 08/11/18 11:20 Simple Syrup FEEDTUBE PRN PRN Hypoglycemia Sodium Bicarbonate 325 mg 08/11/18 11:20 Sodium Bicarbonate FEEDTUBE PRN PRN For Clogged Feeding Tube Sodium Chloride 10 ml 08/01/18 22:00 08/12/18 22:49 Sodium Chloride Flush Syringe 10 Ml IV 10 ml BID SERENITY Administration Sodium Chloride 10 ml 08/01/18 19:44 Sodium Chloride Flush Syringe 10 Ml IV PRN PRN LINE FLUSH Zinc Sulfate 220 mg 08/02/18 10:00 08/12/18 19:05 Zinc Sulfate PO 220 mg DAILY SERENITY Administration
[2018-08-13 06:29] LABS: Hematocrit 19.3 % (30.3-42.9)
[2018-08-13] MEDS: HumaLOG SUB-Q SCH ×4 (06:48→23:38)
--- NOTE | 2018-08-13 07:16 | Progress Note ---
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 Patient was recently discharged from this facility on Jul 29 after 11 day stay for multiple problems including Sepsis, aspiration pneumonia, Encephalopathy, and Resp failure, ESRD. Patient was sent from [facility] again on 08/01/18 for Low O2 sats which Improved to 100% after proper suctioning. Daughter felt that her mother is not being suctioned properly, requested placement to different facility, but no other acceptance. /HD access malfunction, thrombosed s/p thromboectomy: going for perm-a-cath today /Acute on chronic respiratory failure with hypoxia, Sec to improper or delayed suctioning at [facility], Daughter wants a different SNF, Patient has been optimized to a large extent and discharged on Jul 29,breathing treatments, t-tube suction /Aspiration Pneumonitis with Sepsis, poa: continue abx, ID is following /Sepsis poa, GPC bacteremia +/- infected stage IV sacral decubitus +/- HAP: on Abx, ID managing /HAP: Sputum 08/01/2018 Pseudomonas sens to zosyn. ID following, CXR initial 08/01 neg. Repeat CXR 08/09 patchy bibasilar infiltrates. Patient started on zyvox and zosyn. /ESRD needing dialysis, continue HD per renal, Nephrology consulted /IDDM (insulin dependent diabetes mellitus): continue sliding scale coverage with T-feeding diet /HTN (hypertension), now hypotensive, give bolus, continue antihypertensives /GERD (gastroesophageal reflux disease), Cont PPI's /Large sacral decubitus with wound VAC, poa. She is known to have stage IV sacral decubitus since first admission treated medically: s/p Debridement of necrotic SQ tissue, fascia and muscle from stage 4 sacral pressure ulcer 08/11/18. ID ordered CT abd/pelvis which showed no abscess/osteomyelitis. /DVT prophylaxis, placed on heparin==>stopped due to the Anemia Disposition: continue inpatient, d/c back to [facility]-->awaiting on cultures to finalize per ID 08/13/18: Acute on chronic anemia of chronic ESRD: transfuse 1 units of prbc MRSA now growing on buttock culture on Zyvox History Interval history: Patient was seen and examined. Follow-up on current diagnosis of Aspiration Pneumonia. Overnight uneventful. Patient is nonverbal. Imaging, nursing note, chart, labs and old chart reviewed. Discussed with patient. Hospitalist Physical - Physical exam Narrative exam: Gen: chronic disability, ill appearing, NAD, Awake, HEENT: NCAT, trach in place Neck: supple, no adenopathy, no thyromegaly, no JVD CVS/Heart: RRR, normal S1S2, pulses present bilaterally Chest/Lungs: CTA B, Symmetrical chest expansion, good air entry bilaterally GI/Abdomen: soft, NTND, PEG in place, good bowel sounds, no guarding or rebound /Bladder: no suprapubic tenderness, no CVA or paraspinal tenderness Extermity/Skin: no c/c/e, no obvious rash MSK: strophic contracted legs Neuro: CN 2-12 grossly intact, no new focal deficits, doesn't follow commands Psych: calm - Constitutional Vitals: Temp Pulse Resp BP Pulse Ox 99.0 F 85 16 107/50 99 08/12/18 23:45 08/12/18 23:45 08/12/18 23:45 08/12/18 23:45 08/12/18 23:58 General appearance: Present: well-nourished Results - Labs CBC & Chem 7: 08/13/18 05:39 08/11/18 10:22 Labs: Laboratory Last Values WBC 10.0 K/mm3 (4.5-11.0) 08/12/18 05:02 RBC 2.20 M/mm3 (3.65-5.03) L 08/12/18 05:02 Hgb 6.3 gm/dl (10.1-14.3) L 08/13/18 05:39 Hct 19.3 % (30.3-42.9) L* 08/13/18 05:39 MCV 94 fl (79-97) 08/12/18 05:02 MCH 31 pg (28-32) 08/12/18 05:02 MCHC 33 % (30-34) 08/12/18 05:02 RDW 16.7 % (13.2-15.2) H 08/12/18 05:02 Plt Count 386 K/mm3 (140-440) 08/12/18 05:02 Lymph % (Auto) 12.8 % (13.4-35.0) L 08/12/18 05:02 [place] % (Auto) 8.8 % (0.0-7.3) H 08/12/18 05:02 Eos % (Auto) 2.9 % (0.0-4.3) 08/12/18 05:02 Baso % (Auto) 0.6 % (0.0-1.8) 08/12/18 05:02 Lymph # 1.3 K/mm3 (1.2-5.4) 08/12/18 05:02 [place] # 0.9 K/mm3 (0.0-0.8) H 08/12/18 05:02 Eos # 0.3 K/mm3 (0.0-0.4) 08/12/18 05:02 Baso # 0.1 K/mm3 (0.0-0.1) 08/12/18 05:02 Add Manual Diff Complete 08/02/18 16:22 Total Counted 100 08/02/18 16:22 Seg Neutrophils % 74.9 % (40.0-70.0) H 08/12/18 05:02 Seg Neuts % (Manual) 94.0 % (40.0-70.0) H 08/02/18 16:22 Band Neutrophils % 0 % 08/02/18 16:22 Lymphocytes % (Manual) 6.0 % (13.4-35.0) L 08/02/18 16:22 Reactive Lymphs % (Man) 0 % 08/02/18 16:22 Monocytes % (Manual) 0 % (0.0-7.3) 08/02/18 16:22 Eosinophils % (Manual) 0 % (0.0-4.3) 08/02/18 16:22 Basophils % (Manual) 0 % (0.0-1.8) 08/02/18 16:22 Metamyelocytes % 0 % 08/02/18 16:22 Myelocytes % 0 % 08/02/18 16:22 Promyelocytes % 0 % 08/02/18 16:22 Blast Cells % 0 % 08/02/18 16:22 Nucleated RBC % Not Reportable 08/02/18 16:22 Seg Neutrophils # 7.5 K/mm3 (1.8-7.7) 08/12/18 05:02 Seg Neutrophils # Man 9.9 K/mm3 (1.8-7.7) H 08/02/18 16:22 Band Neutrophils # 0.0 K/mm3 08/02/18 16:22 Lymphocytes # (Manual) 0.6 K/mm3 (1.2-5.4) L 08/02/18 16:22 Abs React Lymphs (Man) 0.0 K/mm3 08/02/18 16:22 Monocytes # (Manual) 0.0 K/mm3 (0.0-0.8) 08/02/18 16:22 Eosinophils # (Manual) 0.0 K/mm3 (0.0-0.4) 08/02/18 16:22 Basophils # (Manual) 0.0 K/mm3 (0.0-0.1) 08/02/18 16:22 Metamyelocytes # 0.0 K/mm3 08/02/18 16:22 Myelocytes # 0.0 K/mm3 08/02/18 16:22 Promyelocytes # 0.0 K/mm3 08/02/18 16:22 Blast Cells # 0.0 K/mm3 08/02/18 16:22 WBC Morphology Not Reportable 08/02/18 16:22 Hypersegmented Neuts Not Reportable 08/02/18 16:22 Hyposegmented Neuts Not Reportable 08/02/18 16:22 Hypogranular Neuts Not Reportable 08/02/18 16:22 Smudge Cells Not Reportable 08/02/18 16:22 Toxic Granulation Not Reportable 08/02/18 16:22 Toxic Vacuolation Not Reportable 08/02/18 16:22 Dohle Bodies Not Reportable 08/02/18 16:22 Pelger-Huet Anomaly Not Reportable 08/02/18 16:22 Evelina Rods Not Reportable 08/02/18 16:22 Platelet Estimate Consistent w auto 08/02/18 16:22 Clumped Platelets Not Reportable 08/02/18 16:22 Plt Clumps, EDTA Not Reportable 08/02/18 16:22 Large Platelets 1+ 08/02/18 16:22 Giant Platelets Not Reportable 08/02/18 16:22 Platelet Satelliting Not Reportable 08/02/18 16:22 Plt Morphology Comment Not Reportable 08/02/18 16:22 RBC Morphology Not Reportable 08/02/18 16:22 Dimorphic RBCs Not Reportable 08/02/18 16:22 Polychromasia Not Reportable 08/02/18 16:22 Hypochromasia 1+ 08/02/18 16:22 Poikilocytosis Not Reportable 08/02/18 16:22 Anisocytosis 1+ 08/02/18 16:22 Microcytosis Not Reportable 08/02/18 16:22 Macrocytosis Not Reportable 08/02/18 16:22 Spherocytes Not Reportable 08/02/18 16:22 Pappenheimer Bodies Not Reportable 08/02/18 16:22 Sickle Cells Not Reportable 08/02/18 16:22 Target Cells Not Reportable 08/02/18 16:22 Tear Drop Cells Not Reportable 08/02/18 16:22 Ovalocytes Not Reportable 08/02/18 16:22 Helmet Cells Not Reportable 08/02/18 16:22 [place]te Bodies Not Reportable 08/02/18 16:22 Lynn Rings Not Reportable 08/02/18 16:22 [place] Cells Not Reportable 08/02/18 16:22 Bite Cells Not Reportable 08/02/18 16:22 Crenated Cell Not Reportable 08/02/18 16:22 Elliptocytes Not Reportable 08/02/18 16:22 Acanthocytes (Spur) Not Reportable 08/02/18 16:22 Rouleaux Not Reportable 08/02/18 16:22 Hemoglobin C Crystals Not Reportable 08/02/18 16:22 Schistocytes Not Reportable 08/02/18 16:22 Malaria parasites Not Reportable 08/02/18 16:22 Abraham Bodies Not Reportable 08/02/18 16:22 Hem Pathologist Commnt No 08/02/18 16:22 PT 14.4 Sec. (12.2-14.9) 08/01/18 11:30 INR 1.05 (0.87-1.13) 08/01/18 11:30 APTT 23.5 Sec. (24.2-36.6) L 08/01/18 11:30 POC ABG pH 7.403 (7.35-7.45) 08/02/18 09:07 POC ABG pCO2 43.2 (35-45) 08/02/18 09:07 POC ABG pO2 125 (80-105) H 08/02/18 09:07 POC ABG HCO3 26.9 08/02/18 09:07 POC ABG Total CO2 28 08/02/18 09:07 POC ABG O2 Sat 99 08/02/18 09:07 POC ABG Base Excess 2 08/02/18 09:07 FiO2 30 % 08/02/18 09:07 Sodium 132 mmol/L (137-145) L 08/11/18 10:22 Potassium 4.2 mmol/L (3.6-5.0) 08/11/18 10:22 Chloride 89.8 mmol/L (98-107) L 08/11/18 10:22 Carbon Dioxide 25 mmol/L (22-30) 08/11/18 10:22 Anion Gap 21 mmol/L 08/11/18 10:22 BUN 61 mg/dL (7-17) H 08/11/18 10:22 Creatinine 7.1 mg/dL (0.7-1.2) H 08/11/18 10:22 Estimated GFR 7 ml/min 08/11/18 10:22 BUN/Creatinine Ratio 9 % 08/11/18 10:22 Glucose 187 mg/dL (65-100) H 08/11/18 10:22 POC Glucose 267 (70-105) H 08/13/18 06:47 Hemoglobin A1c 5.3 % (4-6) 08/01/18 19:56 Calcium 9.0 mg/dL (8.4-10.2) 08/11/18 10:22 Magnesium 2.80 mg/dL (1.7-2.3) H 08/01/18 19:56 Total Bilirubin 0.30 mg/dL (0.1-1.2) 08/09/18 05:35 AST 18 units/L (5-40) 08/09/18 05:35 ALT 11 units/L (7-56) 08/09/18 05:35 Alkaline Phosphatase 101 units/L (35-129) 08/09/18 05:35 C-Reactive Protein 14.30 mg/dL (0.00-1.30) H 08/10/18 20:30 Total Protein 6.4 g/dL (6.3-8.2) 08/09/18 05:35 Albumin 2.0 g/dL (3.9-5) L 08/09/18 05:35 Albumin/Globulin Ratio 0.5 % 08/09/18 05:35 Prealbumin 0.277 g/L (0.200-0.400) 08/01/18 19:56 Nutrition/Malnutrition Assess - Dietary Evaluation Nutrition/Malnutrition Findings: Nutrition Notes Start: 08/02/18 16:33 Freq: Status: Active Protocol: Document 08/11/18 10:48 SA (Rec: 08/11/18 10:55 SA [id number]) Co-Sign 08/11/18 10:48 LP Nutrition Notes Need for Assessment generated from: MD Order Initial or Follow up Reassessment Current Diagnosis CKD (stage V CKD) Diabetes Hypertension Respiratory Failure Other Pertinent Diagnosis ESRD on HD Current Diet NPO Labs/Tests Na: 133 Chl: 90.4 BUN: 57 Cr: 6.5 Glu: 184 Pertinent Medications Reviewed Height 5 ft 6 in Weight 95 kg Richards Body Weight (kg) 59.09 BMI 33.7 Weight Status Morbidly Obese Subjective/Other Information MD consult for write/manage TF . Patient not in room at time of visit. Patient has PEG. Percent of energy/protein needs met: 0%/0% Burn Absent Trauma Absent #1 Nutrition Diagnosis Inadequate oral intake Diagnosis Progress(for reassessment Continues documentation) Is patient on ventilator? No Is Patient Ambulatory and/or Out of Bed No REE-([facility]-confined to bed) 1866.432 Kcal/Kg value to use for calculation 17 Approximate Energy Requirements Using 1615 kcal/Kg Calculation Used for Recommendations [facility] Additional Notes Protein needs: 89-96g (1.2-1. 3g/kg AdjBW) AdjBW: 74kg Fluid: 1 L or per MD Nutrition Intervention Nutrition Support: Nepro at 40mL/hr with 50mL flush q4h or per MD Kcal 1,728 Protein (gm) 78 Fluid (mL) 698 Goal #1 TF to continue to meet at least 75% of energy and protein needs Anticipated Discharge Needs: Nepro at 40mL/hr with 50mL flush q4h or per MD order Follow-Up By: 08/16/18 Additional Comments F/U: TF tolerance and stable TF
[2018-08-13] MEDS: DUONEB *Not for PRN Use IH SCH ×3 (08:18→20:08)
[2018-08-13] MEDS: RENVELA PO SCH ×3 (08:26→17:47)
[2018-08-13] MEDS ORDERED: NACL 0.9% 500 ML 500 ML ONE (08:31)
[2018-08-13] MEDS: HALFPRIN EC PO SCH (09:20)
[2018-08-13] MEDS: PROAMATINE PO SCH ×2 (09:20→21:18)
[2018-08-13] MEDS: PEPCID PO SCH (09:21)
[2018-08-13] MEDS: LOPRESSOR PO SCH ×3 (09:21→21:18)
[2018-08-13] MEDS: CORDARONE PO SCH (09:21)
[2018-08-13] MEDS: ZINC SULFATE PO SCH (09:23)
--- NOTE | 2018-08-13 09:33 | Progress Note ---
Assessment and Plan Acute on Chronic hypoxemic respiratory failure Acute on Chronic Encephalopathy (Toxic / Metabolic / Anoxic) Diabetes type II End-stage renal disease, on dialysis Wednesday, Wednesday and Wednesday Cardiomyopathy (S/P AICD implantation) Anemia of chronic disease Leukocytosis Adult failure to thrive s/p trachesotomy Oropharyngeal dysphagia (s/p PEG) S/p PPM for sinus arrest s/p Mitral valve repair h/o Mitral Valve SBE Atrial Fibrillation (Paroxysmal) GPC bacteremia -CXR in the morning -Antibiotics per ID -Transfuse 1 unit PRBC -Continue ATP -Trach care, airway clearance, secretion management - PT/OT as tolerated -VTE and Stress ulcer prophylaxis - enteric feedings as tolerated - accucheck with glycemic control. Target blood glucose of 140-180mg/dL - Monitor closely for hypoglycemia - bronchodilators with pulmonary hygiene per RT - Wean supplemental oxygen for O2 sats > 90% - supportive HD/UF for toxin and volume clearance -continue wound care and wound vac -discharge planning Subjective Date of service: 08/13/18 Principal diagnosis: Ac on Ch hypoxemic Resp failure; Diabetes type II; ESRD on dialysis (M/W/F) Interval history: Patient is seen today for: Acute on Chronic hypoxemic respiratory failure; Acute Encephalopathy (Toxic / Metabolic / Anoxic); Diabetes type II; End-stage renal disease (M/W/F) Seen and examined at bedside; 24hour events reviewed; nursing and respiratory care staff consulted; no adverse overnight events reported to me; resting peacefully in bed; remains on T-piece Thrombosed graft, s/p percutaneous mechanical thrombectomy of AV graft, balloon angioplasty Anemia, needs blood transfusion. Has some increased work of breathing this morning, but otherwise no new respiratory events Objective Vital Signs - 12hr 08/12/18 08/12/18 08/12/18 23:08 23:45 23:58 Temperature 99.0 F Pulse Rate 88 85 Respiratory 16 Rate Blood Pressure 117/49 107/50 O2 Sat by Pulse 99 Oximetry O2 Sat by Pulse 99 Oximetry [ Assessment] Constitutional: alert, appears uncomfortable, other (middle aged AAF, normoc ephalic with mildly increased respiratory effort on t-piece) Eyes: non-icteric ENT: oropharynx moist Neck: supple, no lymphadenopathy, no JVD, other (+ midline tracheostomy tube) Effort: mildly labored Ascultation: Bilateral: diminished breath sounds, rhonchi Percussion: Bilateral: not dull Cardiovascular: regular rate and rhythm, murmur noted (s1,S2, systolic murmur) Gastrointestinal: normoactive bowel sounds, soft, non-tender, non-distended, other (PEG in place) Integumentary: rash Extremities: no cyanosis, no edema, pulses normal, no ischemia or petechiae Neurologic: pupils equal and round, other (not obeying commands to adequately assess) Psychiatric: other (flat affect) CBC and BMP: 08/14/18 07:02 08/14/18 07:02 ABG, PT/INR, D-dimer: ABG POC ABG pH 7.403 (7.35-7.45) 08/02/18 09:07 POC ABG pCO2 43.2 (35-45) 08/02/18 09:07 POC ABG pO2 125 (80-105) H 08/02/18 09:07 POC ABG HCO3 26.9 08/02/18 09:07 POC ABG Total CO2 28 08/02/18 09:07 POC ABG O2 Sat 99 08/02/18 09:07 PT/INR, D-dimer PT 14.4 Sec. (12.2-14.9) 08/01/18 11:30 INR 1.05 (0.87-1.13) 08/01/18 11:30 Abnormal lab findings: Abnormal Labs 08/01/18 08/01/18 08/01/18 11:30 11:30 11:30 WBC 13.7 H RBC 2.81 L Hgb 8.9 L Hct 27.4 L MCV 98 H MCH MCHC RDW 16.0 H Lymph % (Auto) 10.1 L [place] % (Auto) Lymph # [place] # Seg Neutrophils % 84.3 H Seg Neuts % (Manual) Lymphocytes % (Manual) Seg Neutrophils # 11.6 H Seg Neutrophils # Man Lymphocytes # (Manual) APTT 23.5 L POC ABG pCO2 POC ABG pO2 Sodium 133 L Potassium Chloride 89.8 L BUN 78 H Creatinine 8.7 H D Glucose 177 H POC Glucose Magnesium ALT C-Reactive Protein Albumin Crossmatch 08/01/18 08/01/18 08/02/18 18:38 19:56 09:07 WBC RBC Hgb Hct MCV MCH MCHC RDW Lymph % (Auto) [place] % (Auto) Lymph # [place] # Seg Neutrophils % Seg Neuts % (Manual) Lymphocytes % (Manual) Seg Neutrophils # Seg Neutrophils # Man Lymphocytes # (Manual) APTT POC ABG pCO2 48.2 H POC ABG pO2 146 H 125 H Sodium Potassium Chloride BUN Creatinine Glucose POC Glucose Magnesium 2.80 H ALT C-Reactive Protein Albumin Crossmatch 08/02/18 08/02/18 08/02/18 16:22 16:22 17:21 WBC RBC 2.42 L Hgb 8.1 L Hct 22.8 L MCV MCH 34 H MCHC 36 H RDW 15.7 H Lymph % (Auto) [place] % (Auto) Lymph # [place] # Seg Neutrophils % Seg Neuts % (Manual) 94.0 H Lymphocytes % (Manual) 6.0 L Seg Neutrophils # Seg Neutrophils # Man 9.9 H Lymphocytes # (Manual) 0.6 L APTT POC ABG pCO2 POC ABG pO2 Sodium 134 L Potassium Chloride 90.7 L BUN 38 H Creatinine 4.8 H Glucose 175 H POC Glucose 191 H Magnesium ALT < 5 L C-Reactive Protein Albumin 2.9 L Crossmatch 08/03/18 08/03/18 08/03/18 05:19 07:43 07:43 WBC RBC 2.67 L Hgb 8.3 L Hct 24.9 L MCV MCH MCHC RDW 15.6 H Lymph % (Auto) [place] % (Auto) Lymph # [place] # Seg Neutrophils % Seg Neuts % (Manual) Lymphocytes % (Manual) Seg Neutrophils # Seg Neutrophils # Man Lymphocytes # (Manual) APTT POC ABG pCO2 POC ABG pO2 Sodium 134 L Potassium Chloride 89.7 L BUN 52 H Creatinine 5.9 H Glucose 180 H POC Glucose 212 H Magnesium ALT C-Reactive Protein Albumin Crossmatch 08/03/18 08/03/18 08/04/18 12:32 23:42 05:42 WBC RBC Hgb Hct MCV MCH MCHC RDW Lymph % (Auto) [place] % (Auto) Lymph # [place] # Seg Neutrophils % Seg Neuts % (Manual) Lymphocytes % (Manual) Seg Neutrophils # Seg Neutrophils # Man Lymphocytes # (Manual) APTT POC ABG pCO2 POC ABG pO2 Sodium Potassium Chloride BUN Creatinine Glucose POC Glucose 223 H 139 H 151 H Magnesium ALT C-Reactive Protein Albumin Crossmatch 08/04/18 08/04/18 08/04/18 12:11 17:12 20:55 WBC RBC Hgb Hct MCV MCH MCHC RDW Lymph % (Auto) [place] % (Auto) Lymph # [place] # Seg Neutrophils % Seg Neuts % (Manual) Lymphocytes % (Manual) Seg Neutrophils # Seg Neutrophils # Man Lymphocytes # (Manual) APTT POC ABG pCO2 POC ABG pO2 Sodium Potassium Chloride BUN Creatinine Glucose POC Glucose 193 H 137 H 175 H Magnesium ALT C-Reactive Protein Albumin Crossmatch 08/04/18 08/05/18 08/05/18 23:23 05:55 12:03 WBC RBC Hgb Hct MCV MCH MCHC RDW Lymph % (Auto) [place] % (Auto) Lymph # [place] # Seg Neutrophils % Seg Neuts % (Manual) Lymphocytes % (Manual) Seg Neutrophils # Seg Neutrophils # Man Lymphocytes # (Manual) APTT POC ABG pCO2 POC ABG pO2 Sodium Potassium Chloride BUN Creatinine Glucose POC Glucose 165 H 135 H 158 H Magnesium ALT C-Reactive Protein Albumin Crossmatch 08/05/18 08/06/18 08/06/18 23:42 06:05 10:25 WBC 11.8 H RBC 2.61 L Hgb 8.2 L Hct 24.9 L MCV MCH MCHC RDW 15.8 H Lymph % (Auto) [place] % (Auto) Lymph # [place] # Seg Neutrophils % Seg Neuts % (Manual) Lymphocytes % (Manual) Seg Neutrophils # Seg Neutrophils # Man Lymphocytes # (Manual) APTT POC ABG pCO2 POC ABG pO2 Sodium Potassium Chloride BUN Creatinine Glucose POC Glucose 120 H 196 H Magnesium ALT C-Reactive Protein Albumin Crossmatch 08/06/18 08/06/18 08/06/18 10:25 12:31 17:26 WBC RBC Hgb Hct MCV MCH MCHC RDW Lymph % (Auto) [place] % (Auto) Lymph # [place] # Seg Neutrophils % Seg Neuts % (Manual) Lymphocytes % (Manual) Seg Neutrophils # Seg Neutrophils # Man Lymphocytes # (Manual) APTT POC ABG pCO2 POC ABG pO2 Sodium 136 L Potassium 3.3 L D Chloride 93.2 L BUN 32 H Creatinine 4.5 H Glucose 134 H POC Glucose 184 H 174 H Magnesium ALT C-Reactive Protein Albumin Crossmatch 08/07/18 08/07/18 08/07/18 00:32 05:47 11:53 WBC RBC Hgb Hct MCV MCH MCHC RDW Lymph % (Auto) [place] % (Auto) Lymph # [place] # Seg Neutrophils % Seg Neuts % (Manual) Lymphocytes % (Manual) Seg Neutrophils # Seg Neutrophils # Man Lymphocytes # (Manual) APTT POC ABG pCO2 POC ABG pO2 Sodium Potassium Chloride BUN Creatinine Glucose POC Glucose 190 H 203 H 161 H Magnesium ALT C-Reactive Protein Albumin Crossmatch 08/07/18 08/08/18 08/08/18 16:39 00:49 06:41 WBC RBC Hgb Hct MCV MCH MCHC RDW Lymph % (Auto) [place] % (Auto) Lymph # [place] # Seg Neutrophils % Seg Neuts % (Manual) Lymphocytes % (Manual) Seg Neutrophils # Seg Neutrophils # Man Lymphocytes # (Manual) APTT POC ABG pCO2 POC ABG pO2 Sodium Potassium Chloride BUN Creatinine Glucose POC Glucose 217 H 186 H 167 H Magnesium ALT C-Reactive Protein Albumin Crossmatch 08/08/18 08/08/18 08/09/18 13:09 16:49 00:02 WBC RBC Hgb Hct MCV MCH MCHC RDW Lymph % (Auto) [place] % (Auto) Lymph # [place] # Seg Neutrophils % Seg Neuts % (Manual) Lymphocytes % (Manual) Seg Neutrophils # Seg Neutrophils # Man Lymphocytes # (Manual) APTT POC ABG pCO2 POC ABG pO2 Sodium Potassium Chloride BUN Creatinine Glucose POC Glucose 224 H 212 H 188 H Magnesium ALT C-Reactive Protein Albumin Crossmatch 08/09/18 08/09/18 08/09/18 05:35 05:35 05:47 WBC RBC 2.93 L Hgb 9.3 L Hct 27.1 L MCV MCH MCHC RDW 15.7 H Lymph % (Auto) 10.1 L [place] % (Auto) Lymph # 1.0 L [place] # Seg Neutrophils % 83.6 H Seg Neuts % (Manual) Lymphocytes % (Manual) Seg Neutrophils # 8.5 H Seg Neutrophils # Man Lymphocytes # (Manual) APTT POC ABG pCO2 POC ABG pO2 Sodium 135 L Potassium 3.3 L Chloride 93.1 L BUN 39 H Creatinine 5.3 H Glucose 172 H POC Glucose 207 H Magnesium ALT C-Reactive Protein Albumin 2.0 L Crossmatch 08/09/18 08/09/18 08/09/18 11:56 18:30 20:23 WBC RBC Hgb Hct MCV MCH MCHC RDW Lymph % (Auto) [place] % (Auto) Lymph # [place] # Seg Neutrophils % Seg Neuts % (Manual) Lymphocytes % (Manual) Seg Neutrophils # Seg Neutrophils # Man Lymphocytes # (Manual) APTT POC ABG pCO2 POC ABG pO2 Sodium Potassium Chloride BUN Creatinine Glucose POC Glucose 272 H 148 H 197 H Magnesium ALT C-Reactive Protein Albumin Crossmatch 08/10/18 08/10/18 08/10/18 01:09 05:12 05:12 WBC RBC 2.32 L Hgb 7.2 L Hct 21.6 L MCV MCH MCHC RDW 16.1 H Lymph % (Auto) [place] % (Auto) Lymph # [place] # Seg Neutrophils % Seg Neuts % (Manual) Lymphocytes % (Manual) Seg Neutrophils # Seg Neutrophils # Man Lymphocytes # (Manual) APTT POC ABG pCO2 POC ABG pO2 Sodium 133 L Potassium Chloride 90.4 L BUN 57 H Creatinine 6.5 H Glucose 184 H POC Glucose 213 H Magnesium ALT C-Reactive Protein Albumin Crossmatch 08/10/18 08/10/18 08/11/18 06:09 20:30 00:51 WBC RBC Hgb Hct MCV MCH MCHC RDW Lymph % (Auto) [place] % (Auto) Lymph # [place] # Seg Neutrophils % Seg Neuts % (Manual) Lymphocytes % (Manual) Seg Neutrophils # Seg Neutrophils # Man Lymphocytes # (Manual) APTT POC ABG pCO2 POC ABG pO2 Sodium Potassium Chloride BUN Creatinine Glucose POC Glucose 185 H 181 H Magnesium ALT C-Reactive Protein 14.30 H Albumin Crossmatch 08/11/18 08/11/18 08/11/18 05:35 10:22 10:22 WBC RBC Hgb 6.9 L Hct 20.7 L MCV MCH MCHC RDW Lymph % (Auto) [place] % (Auto) Lymph # [place] # Seg Neutrophils % Seg Neuts % (Manual) Lymphocytes % (Manual) Seg Neutrophils # Seg Neutrophils # Man Lymphocytes # (Manual) APTT POC ABG pCO2 POC ABG pO2 Sodium 132 L Potassium Chloride 89.8 L BUN 61 H Creatinine 7.1 H Glucose 187 H POC Glucose 185 H Magnesium ALT C-Reactive Protein Albumin Crossmatch 08/11/18 08/11/18 08/12/18 11:01 17:10 01:35 WBC RBC Hgb Hct MCV MCH MCHC RDW Lymph % (Auto) [place] % (Auto) Lymph # [place] # Seg Neutrophils % Seg Neuts % (Manual) Lymphocytes % (Manual) Seg Neutrophils # Seg Neutrophils # Man Lymphocytes # (Manual) APTT POC ABG pCO2 POC ABG pO2 Sodium Potassium Chloride BUN Creatinine Glucose POC Glucose 197 H 170 H 214 H Magnesium ALT C-Reactive Protein Albumin Crossmatch 08/12/18 08/12/18 08/12/18 05:02 05:09 13:51 WBC RBC 2.20 L Hgb 6.8 L Hct 20.7 L MCV MCH MCHC RDW 16.7 H Lymph % (Auto) 12.8 L [place] % (Auto) 8.8 H Lymph # [place] # 0.9 H Seg Neutrophils % 74.9 H Seg Neuts % (Manual) Lymphocytes % (Manual) Seg Neutrophils # Seg Neutrophils # Man Lymphocytes # (Manual) APTT POC ABG pCO2 POC ABG pO2 Sodium Potassium Chloride BUN Creatinine Glucose POC Glucose 187 H 221 H Magnesium ALT C-Reactive Protein Albumin Crossmatch 08/12/18 08/12/18 08/13/18 16:42 23:33 05:39 WBC RBC Hgb 6.3 L Hct 19.3 L* MCV MCH MCHC RDW Lymph % (Auto) [place] % (Auto) Lymph # [place] # Seg Neutrophils % Seg Neuts % (Manual) Lymphocytes % (Manual) Seg Neutrophils # Seg Neutrophils # Man Lymphocytes # (Manual) APTT POC ABG pCO2 POC ABG pO2 Sodium Potassium Chloride BUN Creatinine Glucose POC Glucose 187 H 236 H Magnesium ALT C-Reactive Protein Albumin Crossmatch 08/13/18 08/13/18 06:47 07:37 WBC RBC Hgb Hct MCV MCH MCHC RDW Lymph % (Auto) [place] % (Auto) Lymph # [place] # Seg Neutrophils % Seg Neuts % (Manual) Lymphocytes % (Manual) Seg Neutrophils # Seg Neutrophils # Man Lymphocytes # (Manual) APTT POC ABG pCO2 POC ABG pO2 Sodium Potassium Chloride BUN Creatinine Glucose POC Glucose 267 H Magnesium ALT C-Reactive Protein Albumin Crossmatch See Detail Allied health notes reviewed: nursing
[2018-08-13] MEDS: SODIUM CHLORIDE FLUSH SYRINGE 10 ML IV SCH ×2 (11:54→21:19)
[2018-08-13] MEDS: TYLENOL PO PRN (12:03)
[2018-08-14] MEDS: HumaLOG SUB-Q SCH ×3 (05:10→17:26)
[2018-08-14] MEDS: IMODIUM PO SCH ×3 (05:11→17:27)
[2018-08-14] MEDS: ZYVOX 600MG/300ML 600 MG/300 ML BAG IV SCH (05:11)
[2018-08-14] MEDS: ZOSYN/NS 2.25 GM/50ML 2.25 GM/50 ML BAG IV SCH ×2 (05:11→13:31)
[2018-08-14] MEDS: SODIUM CHLORIDE FLUSH SYRINGE 10 ML IV SCH ×3 (05:12→22:18)
[2018-08-14] MEDS: DUONEB *Not for PRN Use IH SCH ×4 (07:14→22:12)
[2018-08-14 07:44] LABS: Hematocrit 23.5 % (30.3-42.9); Hemoglobin 7.6 gm/dl (10.1-14.3); Mean Corpuscular HGB Conc 33 % (30-34); Mean Corpuscular Volume 92 fl (79-97); Platelet Count 370 K/mm3 (140-440); Red Blood Count 2.55 M/mm3 (3.65-5.03)
[2018-08-14 07:57] LABS: Calcium 8.9 mg/dL (8.4-10.2)
--- NOTE | 2018-08-14 09:10 | Progress Note ---
Assessment and Plan Cultures: 08/09/18 Blood: GPC, 1 out 4 bottles 08/05/18 Stool: No WBC seen 08/01/18 Sputum: Pseudomonas 08/11/18 Deep Wound: Enterococcus 08/10/18 Buttock: mixed culture, MRSA, Kelbsiella,, E. 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 On admission, she had severe hypotension preceding bradyarythmia leading to PEA arrest on 07/18/2018. Re-admitted on 08/01/18 due to increasing SOB and congestion from Trach site. Now with SIRS: 1) Sepsis: Resolved. Etiology unclear, possibilities GPC bacteremia +/- infected stage IV sacral decubitus +/- HAP 2) GPC bacteremia: ? contaminant versus real ? source sacral decubitus. Blood cultures 08/09/2018 GPC 1 of 4 bottles, Repeat blood cultures ordered. CRP 13.3 3) HAP: Sputum 08/01/2018 Pseudomonas sens to zosyn. CXR initial 08/01 neg. Repeat CXR 08/09 patchy bibasilar infiltrates. Patient started on zyvox and zosyn. 4) Large sacral decubitus: with woundVAC. She is known to have stage IV sacral decubitus since first admission treated medically. Deep wound culture growing Enterococcocus, Buttock growing mixed culture, MRSA, MDR Klebsiella, Enterocococcus. E. coli Abdomen/Pelvis CT: Sacral ulcer as described. There are no convincing findings of abscess or osteomyelitis on noncontrast CT. 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 Large sacral decubitus: with woundVAC. Continue wound care. 6) History of recent aspiration pneumonia due to MDR Serratia treated with meropenem until 07/28/18 7) ESRD: On HD MWF- Thrombosed left arm AVG. Angioplasty yesterday. Recommendations: - switch to PO Zyvox 600mg po bid -Start Meropenem 500mg IV every 24 hours -discontinue Zosyn - contact isolation - will ask if patient needs diverting ostomy. Currently she has a rectal tube. --upon discharge will do meropenem 500mg every 24 hours and Zyvox 600mg po bid for 21 days ending 09-04-18 -PiCC line ordered order placed with case management [facility] M: [phone] O:[phone] Subjective Date of service: 08/14/18 Principal diagnosis: Ac on Ch hypoxemic Resp failure; Diabetes type II; ESRD on dialysis (M/W/F) Interval history: Patient seen and examined. Asleep, easily arousable, no acute distress observed. Objective - Exam Narrative Exam: General appearance: Asleep, easily arousable non conversant Eyes: anicteric sclerae, moist conjunctivae; no lid-lag; PERRLA HENT: Atraumatic; oropharynx clear Neck: Trach Lungs: anayeli scattered rhonchi CV: RRR, no murmurs Abdomen: Soft, non-tender; +PEG Extremities: No peripheral edema or extremity lymphadenopathy Skin: sacral wound VAC Psych: Appropriate affect, alert and oriented to person, place and time. Neuro: alert non verbal - Constitutional Vitals: Vital Signs Temp Pulse Resp BP Pulse Ox 98.8 F 76 18 145/63 100 08/13/18 21:27 08/14/18 07:14 08/14/18 07:14 08/13/18 21:27 08/14/18 07:14 Temperature -Last 24 Hours Temperature 98.8 F Temperature 99.4 F Temperature 99.7 F - Labs CBC & Chem 7: 08/14/18 07:02 08/14/18 07:02 Labs: Abnormal lab results 08/13/18 08/13/18 08/13/18 Range/Units 07:37 11:45 16:24 WBC (4.5-11.0) K/mm3 RBC (3.65-5.03) M/mm3 Hgb (10.1-14.3) gm/dl Hct (30.3-42.9) % RDW (13.2-15.2) % Sodium (137-145) mmol/L Chloride (98-107) mmol/L BUN (7-17) mg/dL Creatinine (0.7-1.2) mg/dL Glucose (65-100) mg/dL POC Glucose 255 H 150 H (70-105) Crossmatch See Detail 08/13/18 08/14/18 08/14/18 Range/Units 23:10 05:13 07:02 WBC 16.0 H (4.5-11.0) K/mm3 RBC 2.55 L (3.65-5.03) M/mm3 Hgb 7.6 L (10.1-14.3) gm/dl Hct 23.5 L (30.3-42.9) % RDW 17.0 H (13.2-15.2) % Sodium (137-145) mmol/L Chloride (98-107) mmol/L BUN (7-17) mg/dL Creatinine (0.7-1.2) mg/dL Glucose (65-100) mg/dL POC Glucose 194 H 138 H (70-105) Crossmatch 08/14/18 Range/Units 07:02 WBC (4.5-11.0) K/mm3 RBC (3.65-5.03) M/mm3 Hgb (10.1-14.3) gm/dl Hct (30.3-42.9) % RDW (13.2-15.2) % Sodium 133 L (137-145) mmol/L Chloride 88.7 L (98-107) mmol/L BUN 40 H (7-17) mg/dL Creatinine 6.2 H (0.7-1.2) mg/dL Glucose 204 H (65-100) mg/dL POC Glucose (70-105) Crossmatch
--- NOTE | 2018-08-14 09:37 | Progress Note ---
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 Patient was recently discharged from this facility on Jul 29 after 11 day stay for multiple problems including Sepsis, aspiration pneumonia, Encephalopathy, and Resp failure, ESRD. Patient was sent from [place] again on 08/01/18 for Low O2 sats which Improved to 100% after proper suctioning. Daughter felt that her mother is not being suctioned properly, requested placement to different facility, but no other acceptance. /HD access malfunction, thrombosed s/p thromboectomy: going for perm-a-cath today /Acute on chronic respiratory failure with hypoxia, Sec to improper or delayed suctioning at [place], Daughter wants a different SNF, Patient has been optimized to a large extent and discharged on Jul 29,breathing treatments, t-tube suction /Aspiration Pneumonitis with Sepsis, poa: continue abx, ID is following /Sepsis poa, GPC bacteremia +/- infected stage IV sacral decubitus +/- HAP: on Abx, ID managing /HAP: Sputum 08/01/2018 Pseudomonas sens to zosyn. ID following, CXR initial 08/01 neg. Repeat CXR 08/09 patchy bibasilar infiltrates. Patient started on zyvox and zosyn. /ESRD needing dialysis, continue HD per renal, Nephrology consulted /IDDM (insulin dependent diabetes mellitus): continue sliding scale coverage with T-feeding diet /HTN (hypertension), now hypotensive, give bolus, continue antihypertensives /GERD (gastroesophageal reflux disease), Cont PPI's /Large sacral decubitus with wound VAC, poa. She is known to have stage IV sacral decubitus since first admission treated medically: s/p Debridement of necrotic SQ tissue, fascia and muscle from stage 4 sacral pressure ulcer 08/11/18. ID ordered CT abd/pelvis which showed no abscess/osteomyelitis. /DVT prophylaxis, placed on heparin==>stopped due to the Anemia /Acute on chronic anemia of chronic ESRD: transfuse 1 units of prbc on 08/13/18 /MRSA skin infection now growing on buttock culture on Zyvox, contact isolation applied Disposition: continue inpatient, d/c back to [place]-->awaiting on cultures to finalize per ID History Interval history: Patient was seen and examined. Follow-up on current diagnosis of Aspiration Pneumonia. Overnight uneventful. Patient is nonverbal. Imaging, nursing note, chart, labs and old chart reviewed. Discussed with patient. Hospitalist Physical - Physical exam Narrative exam: Gen: chronic disability, ill appearing, NAD, Awake, HEENT: NCAT, trach in place Neck: supple, no adenopathy, no thyromegaly, no JVD CVS/Heart: RRR, normal S1S2, pulses present bilaterally Chest/Lungs: CTA B, Symmetrical chest expansion, good air entry bilaterally GI/Abdomen: soft, NTND, PEG in place, good bowel sounds, no guarding or rebound /Bladder: no suprapubic tenderness, no CVA or paraspinal tenderness Extermity/Skin: no c/c/e, no obvious rash MSK: strophic contracted legs Neuro: CN 2-12 grossly intact, no new focal deficits, doesn't follow commands Psych: calm - Constitutional Vitals: Temp Pulse Resp BP Pulse Ox 98.8 F 76 18 145/63 100 08/13/18 21:27 08/14/18 07:14 08/14/18 07:14 08/13/18 21:27 08/14/18 07:14 General appearance: Present: well-nourished Results - Labs CBC & Chem 7: 08/14/18 07:02 08/14/18 07:02 Labs: Laboratory Last Values WBC 16.0 K/mm3 (4.5-11.0) H 08/14/18 07:02 RBC 2.55 M/mm3 (3.65-5.03) L 08/14/18 07:02 Hgb 7.6 gm/dl (10.1-14.3) L 08/14/18 07:02 Hct 23.5 % (30.3-42.9) L 08/14/18 07:02 MCV 92 fl (79-97) 08/14/18 07:02 MCH 30 pg (28-32) 08/14/18 07:02 MCHC 33 % (30-34) 08/14/18 07:02 RDW 17.0 % (13.2-15.2) H 08/14/18 07:02 Plt Count 370 K/mm3 (140-440) 08/14/18 07:02 Lymph % (Auto) 12.8 % (13.4-35.0) L 08/12/18 05:02 Titus % (Auto) 8.8 % (0.0-7.3) H 08/12/18 05:02 Eos % (Auto) 2.9 % (0.0-4.3) 08/12/18 05:02 Baso % (Auto) 0.6 % (0.0-1.8) 08/12/18 05:02 Lymph # 1.3 K/mm3 (1.2-5.4) 08/12/18 05:02 Titus # 0.9 K/mm3 (0.0-0.8) H 08/12/18 05:02 Eos # 0.3 K/mm3 (0.0-0.4) 08/12/18 05:02 Baso # 0.1 K/mm3 (0.0-0.1) 08/12/18 05:02 Add Manual Diff Complete 08/02/18 16:22 Total Counted 100 08/02/18 16:22 Seg Neutrophils % 74.9 % (40.0-70.0) H 08/12/18 05:02 Seg Neuts % (Manual) 94.0 % (40.0-70.0) H 08/02/18 16:22 Band Neutrophils % 0 % 08/02/18 16:22 Lymphocytes % (Manual) 6.0 % (13.4-35.0) L 08/02/18 16:22 Reactive Lymphs % (Man) 0 % 08/02/18 16:22 Monocytes % (Manual) 0 % (0.0-7.3) 08/02/18 16:22 Eosinophils % (Manual) 0 % (0.0-4.3) 08/02/18 16:22 Basophils % (Manual) 0 % (0.0-1.8) 08/02/18 16:22 Metamyelocytes % 0 % 08/02/18 16:22 Myelocytes % 0 % 08/02/18 16:22 Promyelocytes % 0 % 08/02/18 16:22 Blast Cells % 0 % 08/02/18 16:22 Nucleated RBC % Not Reportable 08/02/18 16:22 Seg Neutrophils # 7.5 K/mm3 (1.8-7.7) 08/12/18 05:02 Seg Neutrophils # Man 9.9 K/mm3 (1.8-7.7) H 08/02/18 16:22 Band Neutrophils # 0.0 K/mm3 08/02/18 16:22 Lymphocytes # (Manual) 0.6 K/mm3 (1.2-5.4) L 08/02/18 16:22 Abs React Lymphs (Man) 0.0 K/mm3 08/02/18 16:22 Monocytes # (Manual) 0.0 K/mm3 (0.0-0.8) 08/02/18 16:22 Eosinophils # (Manual) 0.0 K/mm3 (0.0-0.4) 08/02/18 16:22 Basophils # (Manual) 0.0 K/mm3 (0.0-0.1) 08/02/18 16:22 Metamyelocytes # 0.0 K/mm3 08/02/18 16:22 Myelocytes # 0.0 K/mm3 08/02/18 16:22 Promyelocytes # 0.0 K/mm3 08/02/18 16:22 Blast Cells # 0.0 K/mm3 08/02/18 16:22 WBC Morphology Not Reportable 08/02/18 16:22 Hypersegmented Neuts Not Reportable 08/02/18 16:22 Hyposegmented Neuts Not Reportable 08/02/18 16:22 Hypogranular Neuts Not Reportable 08/02/18 16:22 Smudge Cells Not Reportable 08/02/18 16:22 Toxic Granulation Not Reportable 08/02/18 16:22 Toxic Vacuolation Not Reportable 08/02/18 16:22 Dohle Bodies Not Reportable 08/02/18 16:22 Pelger-Huet Anomaly Not Reportable 08/02/18 16:22 Evelina Rods Not Reportable 08/02/18 16:22 Platelet Estimate Consistent w auto 08/02/18 16:22 Clumped Platelets Not Reportable 08/02/18 16:22 Plt Clumps, EDTA Not Reportable 08/02/18 16:22 Large Platelets 1+ 08/02/18 16:22 Giant Platelets Not Reportable 08/02/18 16:22 Platelet Satelliting Not Reportable 08/02/18 16:22 Plt Morphology Comment Not Reportable 08/02/18 16:22 RBC Morphology Not Reportable 08/02/18 16:22 Dimorphic RBCs Not Reportable 08/02/18 16:22 Polychromasia Not Reportable 08/02/18 16:22 Hypochromasia 1+ 08/02/18 16:22 Poikilocytosis Not Reportable 08/02/18 16:22 Anisocytosis 1+ 08/02/18 16:22 Microcytosis Not Reportable 08/02/18 16:22 Macrocytosis Not Reportable 08/02/18 16:22 Spherocytes Not Reportable 08/02/18 16:22 Pappenheimer Bodies Not Reportable 08/02/18 16:22 Sickle Cells Not Reportable 08/02/18 16:22 Target Cells Not Reportable 08/02/18 16:22 Tear Drop Cells Not Reportable 08/02/18 16:22 Ovalocytes Not Reportable 08/02/18 16:22 Helmet Cells Not Reportable 08/02/18 16:22 [place] Bodies Not Reportable 08/02/18 16:22 [place] Rings Not Reportable 08/02/18 16:22 [place] Cells Not Reportable 08/02/18 16:22 Bite Cells Not Reportable 08/02/18 16:22 Crenated Cell Not Reportable 08/02/18 16:22 Elliptocytes Not Reportable 08/02/18 16:22 Acanthocytes (Spur) Not Reportable 08/02/18 16:22 Rouleaux Not Reportable 08/02/18 16:22 Hemoglobin C Crystals Not Reportable 08/02/18 16:22 Schistocytes Not Reportable 08/02/18 16:22 Malaria parasites Not Reportable 08/02/18 16:22 Abraham Bodies Not Reportable 08/02/18 16:22 Hem Pathologist Commnt No 08/02/18 16:22 PT 14.4 Sec. (12.2-14.9) 08/01/18 11:30 INR 1.05 (0.87-1.13) 08/01/18 11:30 APTT 23.5 Sec. (24.2-36.6) L 08/01/18 11:30 POC ABG pH 7.403 (7.35-7.45) 08/02/18 09:07 POC ABG pCO2 43.2 (35-45) 08/02/18 09:07 POC ABG pO2 125 (80-105) H 08/02/18 09:07 POC ABG HCO3 26.9 08/02/18 09:07 POC ABG Total CO2 28 08/02/18 09:07 POC ABG O2 Sat 99 08/02/18 09:07 POC ABG Base Excess 2 08/02/18 09:07 FiO2 30 % 08/02/18 09:07 Sodium 133 mmol/L (137-145) L 08/14/18 07:02 Potassium 3.8 mmol/L (3.6-5.0) 08/14/18 07:02 Chloride 88.7 mmol/L (98-107) L 08/14/18 07:02 Carbon Dioxide 27 mmol/L (22-30) 08/14/18 07:02 Anion Gap 21 mmol/L 08/14/18 07:02 BUN 40 mg/dL (7-17) H 08/14/18 07:02 Creatinine 6.2 mg/dL (0.7-1.2) H 08/14/18 07:02 Estimated GFR 8 ml/min 08/14/18 07:02 BUN/Creatinine Ratio 6 % 08/14/18 07:02 Glucose 204 mg/dL (65-100) H 08/14/18 07:02 POC Glucose 138 (70-105) H 08/14/18 05:13 Hemoglobin A1c 5.3 % (4-6) 08/01/18 19:56 Calcium 8.9 mg/dL (8.4-10.2) 08/14/18 07:02 Magnesium 2.80 mg/dL (1.7-2.3) H 08/01/18 19:56 Total Bilirubin 0.30 mg/dL (0.1-1.2) 08/09/18 05:35 AST 18 units/L (5-40) 08/09/18 05:35 ALT 11 units/L (7-56) 08/09/18 05:35 Alkaline Phosphatase 101 units/L (35-129) 08/09/18 05:35 C-Reactive Protein 14.30 mg/dL (0.00-1.30) H 08/10/18 20:30 Total Protein 6.4 g/dL (6.3-8.2) 08/09/18 05:35 Albumin 2.0 g/dL (3.9-5) L 08/09/18 05:35 Albumin/Globulin Ratio 0.5 % 08/09/18 05:35 Prealbumin 0.277 g/L (0.200-0.400) 08/01/18 19:56 Blood Type O POSITIVE 08/13/18 07:37 Antibody Screen Negative 08/13/18 07:37 Crossmatch See Detail 08/13/18 07:37 Nutrition/Malnutrition Assess - Dietary Evaluation Nutrition/Malnutrition Findings: Nutrition Notes Start: 08/02/18 16:33 Freq: Status: Active Protocol: Document 08/11/18 10:48 SA (Rec: 08/11/18 10:55 SA [id number]) Co-Sign 08/11/18 10:48 LP Nutrition Notes Need for Assessment generated from: MD Order Initial or Follow up Reassessment Current Diagnosis CKD (stage V CKD) Diabetes Hypertension Respiratory Failure Other Pertinent Diagnosis ESRD on HD Current Diet NPO Labs/Tests Na: 133 Chl: 90.4 BUN: 57 Cr: 6.5 Glu: 184 Pertinent Medications Reviewed Height 5 ft 6 in Weight 95 kg [employer] Body Weight (kg) 59.09 BMI 33.7 Weight Status Morbidly Obese Subjective/Other Information MD consult for write/manage TF . Patient not in room at time of visit. Patient has PEG. Percent of energy/protein needs met: 0%/0% Burn Absent Trauma Absent #1 Nutrition Diagnosis Inadequate oral intake Diagnosis Progress(for reassessment Continues documentation) Is patient on ventilator? No Is Patient Ambulatory and/or Out of Bed No REE-([facility]-confined to bed) 1866.432 Kcal/Kg value to use for calculation 17 Approximate Energy Requirements Using 1615 kcal/Kg Calculation Used for Recommendations [facility] Additional Notes Protein needs: 89-96g (1.2-1. 3g/kg AdjBW) AdjBW: 74kg Fluid: 1 L or per MD Nutrition Intervention Nutrition Support: Nepro at 40mL/hr with 50mL flush q4h or per MD Kcal 1,728 Protein (gm) 78 Fluid (mL) 698 Goal #1 TF to continue to meet at least 75% of energy and protein needs Anticipated Discharge Needs: Nepro at 40mL/hr with 50mL flush q4h or per MD order Follow-Up By: 08/16/18 Additional Comments F/U: TF tolerance and stable TF
[2018-08-14] MEDS: ZINC SULFATE PO SCH (10:06)
[2018-08-14] MEDS: CORDARONE PO SCH (10:06)
[2018-08-14] MEDS: PEPCID PO SCH (10:07)
[2018-08-14] MEDS: HALFPRIN EC PO SCH (10:07)
[2018-08-14] MEDS: PROAMATINE PO SCH ×2 (10:07→22:16)
[2018-08-14] MEDS: RENVELA PO SCH ×3 (10:07→16:23)
[2018-08-14] MEDS: LOPRESSOR PO SCH ×2 (10:08→22:17)
--- NOTE | 2018-08-14 11:53 | Progress Note ---
Assessment and Plan Acute on Chronic hypoxemic respiratory failure Acute on Chronic Encephalopathy (Toxic / Metabolic / Anoxic) Diabetes type II End-stage renal disease, on dialysis Wednesday, Wednesday and Wednesday Cardiomyopathy (S/P AICD implantation) Anemia of chronic disease Leukocytosis Adult failure to thrive s/p trachesotomy Oropharyngeal dysphagia (s/p PEG) S/p PPM for sinus arrest s/p Mitral valve repair h/o Mitral Valve SBE Atrial Fibrillation (Paroxysmal) GPC bacteremia -Continue ATP -Antibiotics per ID -Trach care, airway clearance, secretion management - PT/OT as tolerated -VTE and Stress ulcer prophylaxis - enteric feedings as tolerated - accucheck with glycemic control. Target blood glucose of 140-180mg/dL - Monitor closely for hypoglycemia - bronchodilators with pulmonary hygiene per RT - Wean supplemental oxygen for O2 sats > 90% - supportive HD/UF for toxin and volume clearance -continue wound care and wound vac -discharge planning Subjective Date of service: 08/14/18 Principal diagnosis: Ac on Ch hypoxemic Resp failure; Diabetes type II; ESRD on dialysis (M/W/F) Interval history: Patient is seen today for: Acute on Chronic hypoxemic respiratory failure; Acute Encephalopathy (Toxic / Metabolic / Anoxic); Diabetes type II; End-stage renal disease (M/W/F) Seen and examined at bedside; 24hour events reviewed; nursing and respiratory care staff consulted; no adverse overnight events reported to me; resting peacefully in bed; remains on T-piece Thrombosed graft, s/p percutaneous mechanical thrombectomy of AV graft, balloon angioplasty Left chest wall permacath Anemia, needs blood transfusion. Family visiting Objective Vital Signs - 12hr 08/14/18 08/14/18 08/14/18 04:38 04:39 07:14 Pulse Rate [ 76 Anterior Bilateral Throughout] Respiratory 18 Rate [Anterior Bilateral Throughout] O2 Sat by Pulse 97 100 Oximetry O2 Sat by Pulse 97 100 Oximetry [ Assessment] Constitutional: alert, appears uncomfortable, other (middle aged AAF, normocephalic with mildly increased respiratory effort on t-piece) Eyes: non-icteric ENT: oropharynx moist Neck: supple, no lymphadenopathy, no JVD, other (+ midline tracheostomy tube) Effort: mildly labored Ascultation: Bilateral: diminished breath sounds, rhonchi Percussion: Bilateral: not dull Cardiovascular: regular rate and rhythm, murmur noted (s1,S2, systolic murmur) Gastrointestinal: normoactive bowel sounds, soft, non-tender, non-distended, other (PEG in place) Integumentary: rash Extremities: no cyanosis, no edema, pulses normal, no ischemia or petechiae Neurologic: pupils equal and round, other (not obeying commands to adequately assess) Psychiatric: other (flat affect) CBC and BMP: 08/15/18 06:55 08/14/18 07:02 ABG, PT/INR, D-dimer: ABG POC ABG pH 7.403 (7.35-7.45) 08/02/18 09:07 POC ABG pCO2 43.2 (35-45) 08/02/18 09:07 POC ABG pO2 125 (80-105) H 08/02/18 09:07 POC ABG HCO3 26.9 08/02/18 09:07 POC ABG Total CO2 28 08/02/18 09:07 POC ABG O2 Sat 99 08/02/18 09:07 PT/INR, D-dimer PT 14.4 Sec. (12.2-14.9) 08/01/18 11:30 INR 1.05 (0.87-1.13) 08/01/18 11:30 Abnormal lab findings: Abnormal Labs 08/01/18 08/01/18 08/01/18 11:30 11:30 11:30 WBC 13.7 H RBC 2.81 L Hgb 8.9 L Hct 27.4 L MCV 98 H MCH MCHC RDW 16.0 H Lymph % (Auto) 10.1 L [place] % (Auto) Lymph # [place] # Seg Neutrophils % 84.3 H Seg Neuts % (Manual) Lymphocytes % (Manual) Seg Neutrophils # 11.6 H Seg Neutrophils # Man Lymphocytes # (Manual) APTT 23.5 L POC ABG pCO2 POC ABG pO2 Sodium 133 L Potassium Chloride 89.8 L BUN 78 H Creatinine 8.7 H D Glucose 177 H POC Glucose Magnesium ALT C-Reactive Protein Albumin Crossmatch 08/01/18 08/01/18 08/02/18 18:38 19:56 09:07 WBC RBC Hgb Hct MCV MCH MCHC RDW Lymph % (Auto) [place] % (Auto) Lymph # [place] # Seg Neutrophils % Seg Neuts % (Manual) Lymphocytes % (Manual) Seg Neutrophils # Seg Neutrophils # Man Lymphocytes # (Manual) APTT POC ABG pCO2 48.2 H POC ABG pO2 146 H 125 H Sodium Potassium Chloride BUN Creatinine Glucose POC Glucose Magnesium 2.80 H ALT C-Reactive Protein Albumin Crossmatch 08/02/18 08/02/18 08/02/18 16:22 16:22 17:21 WBC RBC 2.42 L Hgb 8.1 L Hct 22.8 L MCV MCH 34 H MCHC 36 H RDW 15.7 H Lymph % (Auto) [place] % (Auto) Lymph # [place] # Seg Neutrophils % Seg Neuts % (Manual) 94.0 H Lymphocytes % (Manual) 6.0 L Seg Neutrophils # Seg Neutrophils # Man 9.9 H Lymphocytes # (Manual) 0.6 L APTT POC ABG pCO2 POC ABG pO2 Sodium 134 L Potassium Chloride 90.7 L BUN 38 H Creatinine 4.8 H Glucose 175 H POC Glucose 191 H Magnesium ALT < 5 L C-Reactive Protein Albumin 2.9 L Crossmatch 08/03/18 08/03/18 08/03/18 05:19 07:43 07:43 WBC RBC 2.67 L Hgb 8.3 L Hct 24.9 L MCV MCH MCHC RDW 15.6 H Lymph % (Auto) [place] % (Auto) Lymph # [place] # Seg Neutrophils % Seg Neuts % (Manual) Lymphocytes % (Manual) Seg Neutrophils # Seg Neutrophils # Man Lymphocytes # (Manual) APTT POC ABG pCO2 POC ABG pO2 Sodium 134 L Potassium Chloride 89.7 L BUN 52 H Creatinine 5.9 H Glucose 180 H POC Glucose 212 H Magnesium ALT C-Reactive Protein Albumin Crossmatch 08/03/18 08/03/18 08/04/18 12:32 23:42 05:42 WBC RBC Hgb Hct MCV MCH MCHC RDW Lymph % (Auto) [place] % (Auto) Lymph # [place] # Seg Neutrophils % Seg Neuts % (Manual) Lymphocytes % (Manual) Seg Neutrophils # Seg Neutrophils # Man Lymphocytes # (Manual) APTT POC ABG pCO2 POC ABG pO2 Sodium Potassium Chloride BUN Creatinine Glucose POC Glucose 223 H 139 H 151 H Magnesium ALT C-Reactive Protein Albumin Crossmatch 08/04/18 08/04/18 08/04/18 12:11 17:12 20:55 WBC RBC Hgb Hct MCV MCH MCHC RDW Lymph % (Auto) [place] % (Auto) Lymph # [place] # Seg Neutrophils % Seg Neuts % (Manual) Lymphocytes % (Manual) Seg Neutrophils # Seg Neutrophils # Man Lymphocytes # (Manual) APTT POC ABG pCO2 POC ABG pO2 Sodium Potassium Chloride BUN Creatinine Glucose POC Glucose 193 H 137 H 175 H Magnesium ALT C-Reactive Protein Albumin Crossmatch 08/04/18 08/05/18 08/05/18 23:23 05:55 12:03 WBC RBC Hgb Hct MCV MCH MCHC RDW Lymph % (Auto) [place] % (Auto) Lymph # [place] # Seg Neutrophils % Seg Neuts % (Manual) Lymphocytes % (Manual) Seg Neutrophils # Seg Neutrophils # Man Lymphocytes # (Manual) APTT POC ABG pCO2 POC ABG pO2 Sodium Potassium Chloride BUN Creatinine Glucose POC Glucose 165 H 135 H 158 H Magnesium ALT C-Reactive Protein Albumin Crossmatch 08/05/18 08/06/18 08/06/18 23:42 06:05 10:25 WBC 11.8 H RBC 2.61 L Hgb 8.2 L Hct 24.9 L MCV MCH MCHC RDW 15.8 H Lymph % (Auto) [place] % (Auto) Lymph # [place] # Seg Neutrophils % Seg Neuts % (Manual) Lymphocytes % (Manual) Seg Neutrophils # Seg Neutrophils # Man Lymphocytes # (Manual) APTT POC ABG pCO2 POC ABG pO2 Sodium Potassium Chloride BUN Creatinine Glucose POC Glucose 120 H 196 H Magnesium ALT C-Reactive Protein Albumin Crossmatch 08/06/18 08/06/18 08/06/18 10:25 12:31 17:26 WBC RBC Hgb Hct MCV MCH MCHC RDW Lymph % (Auto) [place] % (Auto) Lymph # [place] # Seg Neutrophils % Seg Neuts % (Manual) Lymphocytes % (Manual) Seg Neutrophils # Seg Neutrophils # Man Lymphocytes # (Manual) APTT POC ABG pCO2 POC ABG pO2 Sodium 136 L Potassium 3.3 L D Chloride 93.2 L BUN 32 H Creatinine 4.5 H Glucose 134 H POC Glucose 184 H 174 H Magnesium ALT C-Reactive Protein Albumin Crossmatch 08/07/18 08/07/18 08/07/18 00:32 05:47 11:53 WBC RBC Hgb Hct MCV MCH MCHC RDW Lymph % (Auto) [place] % (Auto) Lymph # [place] # Seg Neutrophils % Seg Neuts % (Manual) Lymphocytes % (Manual) Seg Neutrophils # Seg Neutrophils # Man Lymphocytes # (Manual) APTT POC ABG pCO2 POC ABG pO2 Sodium Potassium Chloride BUN Creatinine Glucose POC Glucose 190 H 203 H 161 H Magnesium ALT C-Reactive Protein Albumin Crossmatch 08/07/18 08/08/18 08/08/18 16:39 00:49 06:41 WBC RBC Hgb Hct MCV MCH MCHC RDW Lymph % (Auto) [place] % (Auto) Lymph # [place] # Seg Neutrophils % Seg Neuts % (Manual) Lymphocytes % (Manual) Seg Neutrophils # Seg Neutrophils # Man Lymphocytes # (Manual) APTT POC ABG pCO2 POC ABG pO2 Sodium Potassium Chloride BUN Creatinine Glucose POC Glucose 217 H 186 H 167 H Magnesium ALT C-Reactive Protein Albumin Crossmatch 08/08/18 08/08/18 08/09/18 13:09 16:49 00:02 WBC RBC Hgb Hct MCV MCH MCHC RDW Lymph % (Auto) [place] % (Auto) Lymph # [place] # Seg Neutrophils % Seg Neuts % (Manual) Lymphocytes % (Manual) Seg Neutrophils # Seg Neutrophils # Man Lymphocytes # (Manual) APTT POC ABG pCO2 POC ABG pO2 Sodium Potassium Chloride BUN Creatinine Glucose POC Glucose 224 H 212 H 188 H Magnesium ALT C-Reactive Protein Albumin Crossmatch 08/09/18 08/09/18 08/09/18 05:35 05:35 05:47 WBC RBC 2.93 L Hgb 9.3 L Hct 27.1 L MCV MCH MCHC RDW 15.7 H Lymph % (Auto) 10.1 L [place] % (Auto) Lymph # 1.0 L [place] # Seg Neutrophils % 83.6 H Seg Neuts % (Manual) Lymphocytes % (Manual) Seg Neutrophils # 8.5 H Seg Neutrophils # Man Lymphocytes # (Manual) APTT POC ABG pCO2 POC ABG pO2 Sodium 135 L Potassium 3.3 L Chloride 93.1 L BUN 39 H Creatinine 5.3 H Glucose 172 H POC Glucose 207 H Magnesium ALT C-Reactive Protein Albumin 2.0 L Crossmatch 08/09/18 08/09/18 08/09/18 11:56 18:30 20:23 WBC RBC Hgb Hct MCV MCH MCHC RDW Lymph % (Auto) [place] % (Auto) Lymph # [place] # Seg Neutrophils % Seg Neuts % (Manual) Lymphocytes % (Manual) Seg Neutrophils # Seg Neutrophils # Man Lymphocytes # (Manual) APTT POC ABG pCO2 POC ABG pO2 Sodium Potassium Chloride BUN Creatinine Glucose POC Glucose 272 H 148 H 197 H Magnesium ALT C-Reactive Protein Albumin Crossmatch 08/10/18 08/10/18 08/10/18 01:09 05:12 05:12 WBC RBC 2.32 L Hgb 7.2 L Hct 21.6 L MCV MCH MCHC RDW 16.1 H Lymph % (Auto) [place] % (Auto) Lymph # [place] # Seg Neutrophils % Seg Neuts % (Manual) Lymphocytes % (Manual) Seg Neutrophils # Seg Neutrophils # Man Lymphocytes # (Manual) APTT POC ABG pCO2 POC ABG pO2 Sodium 133 L Potassium Chloride 90.4 L BUN 57 H Creatinine 6.5 H Glucose 184 H POC Glucose 213 H Magnesium ALT C-Reactive Protein Albumin Crossmatch 08/10/18 08/10/18 08/11/18 06:09 20:30 00:51 WBC RBC Hgb Hct MCV MCH MCHC RDW Lymph % (Auto) [place] % (Auto) Lymph # [place] # Seg Neutrophils % Seg Neuts % (Manual) Lymphocytes % (Manual) Seg Neutrophils # Seg Neutrophils # Man Lymphocytes # (Manual) APTT POC ABG pCO2 POC ABG pO2 Sodium Potassium Chloride BUN Creatinine Glucose POC Glucose 185 H 181 H Magnesium ALT C-Reactive Protein 14.30 H Albumin Crossmatch 08/11/18 08/11/18 08/11/18 05:35 10:22 10:22 WBC RBC Hgb 6.9 L Hct 20.7 L MCV MCH MCHC RDW Lymph % (Auto) [place] % (Auto) Lymph # [place] # Seg Neutrophils % Seg Neuts % (Manual) Lymphocytes % (Manual) Seg Neutrophils # Seg Neutrophils # Man Lymphocytes # (Manual) APTT POC ABG pCO2 POC ABG pO2 Sodium 132 L Potassium Chloride 89.8 L BUN 61 H Creatinine 7.1 H Glucose 187 H POC Glucose 185 H Magnesium ALT C-Reactive Protein Albumin Crossmatch 08/11/18 08/11/18 08/12/18 11:01 17:10 01:35 WBC RBC Hgb Hct MCV MCH MCHC RDW Lymph % (Auto) [place] % (Auto) Lymph # [place] # Seg Neutrophils % Seg Neuts % (Manual) Lymphocytes % (Manual) Seg Neutrophils # Seg Neutrophils # Man Lymphocytes # (Manual) APTT POC ABG pCO2 POC ABG pO2 Sodium Potassium Chloride BUN Creatinine Glucose POC Glucose 197 H 170 H 214 H Magnesium ALT C-Reactive Protein Albumin Crossmatch 08/12/18 08/12/18 08/12/18 05:02 05:09 13:51 WBC RBC 2.20 L Hgb 6.8 L Hct 20.7 L MCV MCH MCHC RDW 16.7 H Lymph % (Auto) 12.8 L [place] % (Auto) 8.8 H Lymph # [place] # 0.9 H Seg Neutrophils % 74.9 H Seg Neuts % (Manual) Lymphocytes % (Manual) Seg Neutrophils # Seg Neutrophils # Man Lymphocytes # (Manual) APTT POC ABG pCO2 POC ABG pO2 Sodium Potassium Chloride BUN Creatinine Glucose POC Glucose 187 H 221 H Magnesium ALT C-Reactive Protein Albumin Crossmatch 08/12/18 08/12/18 08/13/18 16:42 23:33 05:39 WBC RBC Hgb 6.3 L Hct 19.3 L* MCV MCH MCHC RDW Lymph % (Auto) [place] % (Auto) Lymph # [place] # Seg Neutrophils % Seg Neuts % (Manual) Lymphocytes % (Manual) Seg Neutrophils # Seg Neutrophils # Man Lymphocytes # (Manual) APTT POC ABG pCO2 POC ABG pO2 Sodium Potassium Chloride BUN Creatinine Glucose POC Glucose 187 H 236 H Magnesium ALT C-Reactive Protein Albumin Crossmatch 08/13/18 08/13/18 08/13/18 06:47 07:37 11:45 WBC RBC Hgb Hct MCV MCH MCHC RDW Lymph % (Auto) [place] % (Auto) Lymph # [place] # Seg Neutrophils % Seg Neuts % (Manual) Lymphocytes % (Manual) Seg Neutrophils # Seg Neutrophils # Man Lymphocytes # (Manual) APTT POC ABG pCO2 POC ABG pO2 Sodium Potassium Chloride BUN Creatinine Glucose POC Glucose 267 H 255 H Magnesium ALT C-Reactive Protein Albumin Crossmatch See Detail 08/13/18 08/13/18 08/14/18 16:24 23:10 05:13 WBC RBC Hgb Hct MCV MCH MCHC RDW Lymph % (Auto) [place] % (Auto) Lymph # [place] # Seg Neutrophils % Seg Neuts % (Manual) Lymphocytes % (Manual) Seg Neutrophils # Seg Neutrophils # Man Lymphocytes # (Manual) APTT POC ABG pCO2 POC ABG pO2 Sodium Potassium Chloride BUN Creatinine Glucose POC Glucose 150 H 194 H 138 H Magnesium ALT C-Reactive Protein Albumin Crossmatch 08/14/18 08/14/18 08/14/18 07:02 07:02 11:47 WBC 16.0 H RBC 2.55 L Hgb 7.6 L Hct 23.5 L MCV MCH MCHC RDW 17.0 H Lymph % (Auto) [place] % (Auto) Lymph # [place] # Seg Neutrophils % Seg Neuts % (Manual) Lymphocytes % (Manual) Seg Neutrophils # Seg Neutrophils # Man Lymphocytes # (Manual) APTT POC ABG pCO2 POC ABG pO2 Sodium 133 L Potassium Chloride 88.7 L BUN 40 H Creatinine 6.2 H Glucose 204 H POC Glucose 224 H Magnesium ALT C-Reactive Protein Albumin Crossmatch Allied health notes reviewed: nursing
--- NOTE | 2018-08-14 14:38 | Progress Note ---
Assessment and Plan 1. ESRD: Continue hemodialysis three times a week, MWF schedule. 2. Thrombosed left arm AVG: S/p tunnel catheter. 3. Respiratory failure: Trached, on T-piece. 4. Anemia: One unit of PRBC yesterday. Epogen with HD. 5. Hypotension: Midodrine. 6. Sepsis: Followed by ID. 7. H/o Cardiac arrest. 8. H/o CVA. 9. Anoxic encephalopathy. D/w her brother at the bedside. Subjective Date of service: 08/14/18 Principal diagnosis: Ac on Ch hypoxemic Resp failure; Diabetes type II; ESRD on dialysis (M/W/F) Interval history: Patient was seen and examined at the bedside. Objective - Vital Signs Vital signs: Vital Signs - 12hr 08/14/18 08/14/18 08/14/18 04:38 04:39 07:14 Temperature Pulse Rate Pulse Rate [ 76 Anterior Bilateral Throughout] Respiratory Rate Respiratory 18 Rate [Anterior Bilateral Throughout] Blood Pressure O2 Sat by Pulse 97 100 Oximetry O2 Sat by Pulse 97 100 Oximetry [ Assessment] 08/14/18 08/14/18 12:30 13:21 Temperature 98.4 F Pulse Rate 74 Pulse Rate [ 78 Anterior Bilateral Throughout] Respiratory 19 Rate Respiratory 18 Rate [Anterior Bilateral Throughout] Blood Pressure 165/64 O2 Sat by Pulse 97 Oximetry O2 Sat by Pulse Oximetry [ Assessment] - General Appearance General appearance: well-developed, well-nourished, appears stated age, other (not in distress, left IJ tunnel catheter) EENT: ATNC Neck: other (Trached, on T-piece) Respiratory: Present: Clear to Ascultation Cardiology: regular, S1S2, no murmurs Gastrointestinal: normoactive bowel sounds, no tenderness, no distended, other (PEG tube noted) Integumentary: other (no edema) Neurologic: other (alert, not following any command) Musculoskeletal: other (no edema) - Lab 08/14/18 07:02 08/14/18 07:02 Most recent lab results Calcium 8.9 mg/dL (8.4-10.2) 08/14/18 07:02 Magnesium 2.80 mg/dL (1.7-2.3) H 08/01/18 19:56 Medications & Allergies - Medications Allergies/Adverse Reactions: Allergies ondansetron Allergy (Verified 08/01/18 11:00) Anaphylaxis sulfamethoxazole [From Bactrim] Allergy (Verified 08/01/18 11:00) Anaphylaxis trimethoprim [From Bactrim] Allergy (Verified 08/01/18 11:00) Anaphylaxis vancomycin Allergy (Verified 08/01/18 11:00) Anaphylaxis Home Medications: Home Medications Medication Instructions Recorded Confirmed Last Taken Type ALBUTEROL NEB's [Proventil 0.083% 3 ml IH Q4HR 07/26/18 08/01/18 Unknown History NEBS] Metoprolol [Lopressor TAB] 25 mg PO BID tablet 07/29/18 08/01/18 Unknown Rx amLODIPine [Norvasc] 5 mg PO QDAY tablet 07/29/18 08/01/18 Unknown Rx Amiodarone HCl [Pacerone] 200 mg PO DAILY 08/01/18 08/01/18 Unknown History Aspirin [Adult Aspirin] 81 mg PO DAILY 08/01/18 08/01/18 Unknown History Carvedilol [Coreg] 12.5 mg PO BID 08/01/18 08/01/18 Unknown History Famotidine 20 mg PO DAILY 08/01/18 08/01/18 Unknown History Gabapentin [Gralise] 30 mg PO QHS 08/01/18 08/01/18 Unknown History Lispro Insulin [Humalog] 0 unit SQ TID 08/01/18 08/01/18 Unknown History Loperamide [Imodium] 2 mg PO Q6H 08/01/18 08/01/18 Unknown History Sevelamer Carbonate [Renvela] 800 mg PO TIDWM 08/01/18 08/01/18 Unknown History Zinc Sulfate 220 mg PO DAILY 08/01/18 08/01/18 Unknown History Acetaminophen [Acetaminophen TAB] 650 mg PO Q4H PRN #15 tablet 08/09/18 Unknown Rx Midodrine [Proamatine] 10 mg PO BID #60 tablet 08/09/18 Unknown Rx QUEtiapine [SEROquel] 25 mg PO BID@0800,1700 #60 tablet 08/09/18 Unknown Rx QUEtiapine [SEROquel] 50 mg PO QHS #30 tablet 08/09/18 Unknown Rx Simple Syrup 30 ml FEEDTUBE PRN PRN #30 08/09/18 Unknown Rx oral.liqd Sodium Bicarbonate 325 mg FEEDTUBE PRN PRN #30 tablet 08/09/18 Unknown Rx Active Medications: Generic Name Dose Route Start Last Admin Trade Name Freq PRN Reason Stop Dose Admin Acetaminophen 650 mg 08/01/18 19:44 08/13/18 12:03 Tylenol PO 650 mg Q4H PRN Administration Pain MILD(1-3)/Fever >100.5/CASAREZ Albuterol/Ipratropium 1 ampul 08/02/18 14:00 08/14/18 12:30 Duoneb *Not For Prn Use* IH 1 ampul TIDRT SERENITY Administration Amiodarone HCl 200 mg 08/01/18 22:00 08/14/18 10:06 Cordarone PO 200 mg DAILY SERENITY Administration Lipase/Protease/Amylase 1 each 08/11/18 11:[address] 10,500 Unit FEEDTUBE PRN PRN For Clogged Feeding Tube Aspirin 81 mg 08/01/18 22:00 08/14/18 10:07 Halfprin Ec PO 81 mg DAILY SERENITY Administration Epoetin [place] 20,000 unit 08/02/18 10:41 08/12/18 12:50 Procrit SUB-Q 20,000 unit ANJANA PRN Administration hemodialysis Famotidine 20 mg 08/01/18 22:00 08/14/18 10:07 Pepcid PO 20 mg DAILY SERENITY Administration Sodium Chloride 100 mls @ 999 mls/hr 08/02/18 09:40 Nacl 0.9% IV ANJANA PRN Hypotension Piperacillin Sod/Tazobactam Sod 2.25 gm in 50 mls @ 100 mls/hr 08/09/18 14:00 08/14/18 13:31 Zosyn/Ns 2.25 Gm/50ml IV 100 mls/hr Q8HR SERENITY Administration Linezolid 600 mg in 300 mls @ 300 mls/hr 08/10/18 18:00 08/14/18 05:11 Zyvox 600mg/300ml IV 300 mls/hr Q12H SERENITY Administration Protocol Insulin Human Lispro 0 unit 08/02/18 08:00 08/14/18 05:10 Humalog SUB-Q Not Given Q6HR SERENITY Protocol Loperamide HCl 2 mg 08/01/18 22:00 08/14/18 05:11 Imodium PO 2 mg Q6HR SERENITY Administration Metoprolol Tartrate 25 mg 08/01/18 22:00 08/14/18 10:08 Lopressor PO 25 mg BID SERENITY Administration Midodrine 10 mg 08/09/18 11:00 08/14/18 10:07 Proamatine PO 10 mg BID SERENITY Administration Oxycodone/Acetaminophen 1 tab 08/10/18 23:10 08/12/18 05:44 Percocet 5/325 PO 1 tab Q6H PRN Administration Pain, Moderate (4-6) Quetiapine Fumarate 50 mg 08/05/18 22:00 08/13/18 21:18 Seroquel PO 50 mg QHS SERENITY Administration Quetiapine Fumarate 25 mg 08/08/18 08:00 08/14/18 10:10 Seroquel PO 25 mg BID@0800,1700 SERENITY Administration Sevelamer Carbonate 800 mg 08/02/18 08:00 08/14/18 10:07 Renvela PO 800 mg TIDWM SERENITY Administration Simple Syrup 15 ml 08/11/18 11:20 Simple Syrup FEEDTUBE PRN PRN Hypoglycemia Simple Syrup 30 ml 08/11/18 11:20 Simple Syrup FEEDTUBE PRN PRN Hypoglycemia Sodium Bicarbonate 325 mg 08/11/18 11:20 Sodium Bicarbonate FEEDTUBE PRN PRN For Clogged Feeding Tube Sodium Chloride 10 ml 08/01/18 22:00 08/14/18 05:12 Sodium Chloride Flush Syringe 10 Ml IV 10 ml BID SERENITY Administration Sodium Chloride 10 ml 08/01/18 19:44 Sodium Chloride Flush Syringe 10 Ml IV PRN PRN LINE FLUSH Zinc Sulfate 220 mg 08/02/18 10:00 08/14/18 10:06 Zinc Sulfate PO 220 mg DAILY SERENITY Administration
[2018-08-14] MEDS: ZYVOX PO SCH (22:16)
[2018-08-14] MEDS: MERREM/NS 500 MG/50 ML 500 MG/50 ML BAG IV SCH (22:18)
[2018-08-15] MEDS: HumaLOG SUB-Q SCH ×4 (00:17→18:00)
[2018-08-15] MEDS: IMODIUM PO SCH ×4 (01:16→18:11)
[2018-08-15 07:23] LABS: Hematocrit 23.6 % (30.3-42.9); Hemoglobin 8.1 gm/dl (10.1-14.3)
[2018-08-15] MEDS: DUONEB *Not for PRN Use IH SCH ×3 (09:10→21:36)
--- NOTE | 2018-08-15 09:27 | Progress Note ---
Assessment and Plan 1. ESRD: Continue hemodialysis three times a week, MWF schedule. 2. Thrombosed left arm AVG: S/p tunnel catheter. 3. Respiratory failure: Trached, on T-piece. 4. Anemia: S/p one unit of PRBC. Epogen with HD. 5. Hypertension: Will stop Midodrine. 6. Sepsis: Followed by ID. 7. H/o Cardiac arrest. 8. H/o CVA. 9. Anoxic encephalopathy. Subjective Date of service: 08/15/18 Principal diagnosis: Ac on Ch hypoxemic Resp failure; Diabetes type II; ESRD on dialysis (M/W/F) Interval history: Patient was seen and examined at the bedside. Objective - Vital Signs Vital signs: Vital Signs - 12hr 08/14/18 08/14/18 08/14/18 22:00 22:12 22:13 Temperature Pulse Rate Pulse Rate [ 77 Apical] Pulse Rate [ 80 Posterior Bilateral Throughout] Respiratory 20 Rate Respiratory 18 Rate [Posterior Bilateral Throughout] Blood Pressure O2 Sat by Pulse 98 98 Oximetry O2 Sat by Pulse Oximetry [ Assessment] 08/14/18 08/14/18 08/14/18 22:15 22:17 22:22 Temperature Pulse Rate 77 Pulse Rate [ Apical] Pulse Rate [ 82 Posterior Bilateral Throughout] Respiratory Rate Respiratory 18 Rate [Posterior Bilateral Throughout] Blood Pressure 156/61 O2 Sat by Pulse Oximetry O2 Sat by Pulse 98 Oximetry [ Assessment] 08/14/18 08/14/18 08/15/18 22:59 23:04 04:27 Temperature 98.9 F 98.0 F Pulse Rate 74 90 Pulse Rate [ Apical] Pulse Rate [ Posterior Bilateral Throughout] Respiratory 18 20 Rate Respiratory Rate [Posterior Bilateral Throughout] Blood Pressure 153/61 103/66 O2 Sat by Pulse 100 93 Oximetry O2 Sat by Pulse 100 Oximetry [ Assessment] 08/15/18 09:10 Temperature Pulse Rate Pulse Rate [ Apical] Pulse Rate [ 74 Posterior Bilateral Throughout] Respiratory Rate Respiratory 20 Rate [Posterior Bilateral Throughout] Blood Pressure O2 Sat by Pulse Oximetry O2 Sat by Pulse Oximetry [ Assessment] - General Appearance General appearance: well-developed, appears stated age, other (not in distress, left IJ tunnel catheter) EENT: ATNC Neck: other (Traced on T-piece) Respiratory: Present: Clear to Ascultation Cardiology: regular, S1S2, no murmurs Gastrointestinal: normoactive bowel sounds, no tenderness, no distended, other (PEG tube noted) Integumentary: no rash, warm and dry Neurologic: other (alert, not following any command) Musculoskeletal: other (no edema) - Lab 08/15/18 06:55 08/14/18 07:02 Most recent lab results Calcium 8.9 mg/dL (8.4-10.2) 08/14/18 07:02 Magnesium 2.80 mg/dL (1.7-2.3) H 08/01/18 19:56 Medications & Allergies - Medications Allergies/Adverse Reactions: Allergies ondansetron Allergy (Verified 08/01/18 11:00) Anaphylaxis sulfamethoxazole [From Bactrim] Allergy (Verified 08/01/18 11:00) Anaphylaxis trimethoprim [From Bactrim] Allergy (Verified 08/01/18 11:00) Anaphylaxis vancomycin Allergy (Verified 08/01/18 11:00) Anaphylaxis Home Medications: Home Medications Medication Instructions Recorded Confirmed Last Taken Type ALBUTEROL NEB's [Proventil 0.083% 3 ml IH Q4HR 07/26/18 08/01/18 Unknown History NEBS] Metoprolol [Lopressor TAB] 25 mg PO BID tablet 07/29/18 08/01/18 Unknown Rx amLODIPine [Norvasc] 5 mg PO QDAY tablet 07/29/18 08/01/18 Unknown Rx Amiodarone HCl [Pacerone] 200 mg PO DAILY 08/01/18 08/01/18 Unknown History Aspirin [Adult Aspirin] 81 mg PO DAILY 08/01/18 08/01/18 Unknown History Carvedilol [Coreg] 12.5 mg PO BID 08/01/18 08/01/18 Unknown History Famotidine 20 mg PO DAILY 08/01/18 08/01/18 Unknown History Gabapentin [Gralise] 30 mg PO QHS 08/01/18 08/01/18 Unknown History Lispro Insulin [Humalog] 0 unit SQ TID 08/01/18 08/01/18 Unknown History Loperamide [Imodium] 2 mg PO Q6H 08/01/18 08/01/18 Unknown History Sevelamer Carbonate [Renvela] 800 mg PO TIDWM 08/01/18 08/01/18 Unknown History Zinc Sulfate 220 mg PO DAILY 08/01/18 08/01/18 Unknown History Acetaminophen [Acetaminophen TAB] 650 mg PO Q4H PRN #15 tablet 08/09/18 Unknown Rx Midodrine [Proamatine] 10 mg PO BID #60 tablet 08/09/18 Unknown Rx QUEtiapine [SEROquel] 25 mg PO BID@0800,1700 #60 tablet 08/09/18 Unknown Rx QUEtiapine [SEROquel] 50 mg PO QHS #30 tablet 08/09/18 Unknown Rx Simple Syrup 30 ml FEEDTUBE PRN PRN #30 08/09/18 Unknown Rx oral.liqd Sodium Bicarbonate 325 mg FEEDTUBE PRN PRN #30 tablet 08/09/18 Unknown Rx Active Medications: Generic Name Dose Route Start Last Admin Trade Name Freq PRN Reason Stop Dose Admin Acetaminophen 650 mg 08/01/18 19:44 08/13/18 12:03 Tylenol PO 650 mg Q4H PRN Administration Pain MILD(1-3)/Fever >100.5/CASAREZ Albuterol/Ipratropium 1 ampul 08/02/18 14:00 08/15/18 09:10 Duoneb *Not For Prn Use* IH 1 ampul TIDRT SERENITY Administration Amiodarone HCl 200 mg 08/01/18 22:00 08/14/18 10:06 Cordarone PO 200 mg DAILY SERENITY Administration Lipase/Protease/Amylase 1 each 08/11/18 11:[address] 10,500 Unit FEEDTUBE PRN PRN For Clogged Feeding Tube Aspirin 81 mg 08/01/18 22:00 08/14/18 10:07 Halfprin Ec PO 81 mg DAILY SERENITY Administration Epoetin Beka 20,000 unit 08/02/18 10:41 08/12/18 12:50 Procrit SUB-Q 20,000 unit ANJANA PRN Administration hemodialysis Famotidine 20 mg 08/01/18 22:00 08/14/18 10:07 Pepcid PO 20 mg DAILY SERENITY Administration Sodium Chloride 100 mls @ 999 mls/hr 08/02/18 09:40 Nacl 0.9% IV ANJANA PRN Hypotension Meropenem 500 mg in 50 mls @ 50 mls/hr 08/14/18 17:00 08/14/18 22:18 Merrem/Ns 500 Mg/50 Ml IV 50 mls/hr Q24HR SERENITY Administration Insulin Human Lispro 0 unit 08/02/18 08:00 08/15/18 05:35 Humalog SUB-Q 2 unit Q6HR SERENITY Administration Protocol Linezolid 600 mg 08/14/18 22:00 08/14/18 22:16 Zyvox PO 600 mg Q12HR SERENITY Administration Protocol Loperamide HCl 2 mg 08/01/18 22:00 08/15/18 05:35 Imodium PO 2 mg Q6HR SERENITY Administration Metoprolol Tartrate 25 mg 08/01/18 22:00 08/14/18 22:17 Lopressor PO 25 mg BID SERENITY Administration Midodrine 10 mg 08/09/18 11:00 08/14/18 22:16 Proamatine PO 10 mg BID SERENITY Administration Oxycodone/Acetaminophen 1 tab 08/10/18 23:10 08/12/18 05:44 Percocet 5/325 PO 1 tab Q6H PRN Administration Pain, Moderate (4-6) Quetiapine Fumarate 50 mg 08/05/18 22:00 08/14/18 22:16 Seroquel PO 50 mg QHS SERENITY Administration Quetiapine Fumarate 25 mg 08/08/18 08:00 08/14/18 16:23 Seroquel PO 25 mg BID@0800,1700 SERENITY Administration Sevelamer Carbonate 800 mg 08/02/18 08:00 08/14/18 16:23 Renvela PO 800 mg TIDWM SERENITY Administration Simple Syrup 15 ml 08/11/18 11:20 Simple Syrup FEEDTUBE PRN PRN Hypoglycemia Simple Syrup 30 ml 08/11/18 11:20 Simple Syrup FEEDTUBE PRN PRN Hypoglycemia Sodium Bicarbonate 325 mg 08/11/18 11:20 Sodium Bicarbonate FEEDTUBE PRN PRN For Clogged Feeding Tube Sodium Chloride 10 ml 08/01/18 22:00 08/14/18 22:18 Sodium Chloride Flush Syringe 10 Ml IV 10 ml BID SERENITY Administration Sodium Chloride 10 ml 08/01/18 19:44 Sodium Chloride Flush Syringe 10 Ml IV PRN PRN LINE FLUSH Zinc Sulfate 220 mg 08/02/18 10:00 08/14/18 10:06 Zinc Sulfate PO 220 mg DAILY SERENITY Administration
[2018-08-15] MEDS: ZYVOX PO SCH (09:32)
[2018-08-15] MEDS: PEPCID PO SCH (09:32)
[2018-08-15] MEDS: CORDARONE PO SCH (09:32)
[2018-08-15] MEDS: HALFPRIN EC PO SCH (09:32)
[2018-08-15] MEDS: MERREM/NS 500 MG/50 ML 500 MG/50 ML BAG IV SCH (09:33)
[2018-08-15] MEDS: SODIUM CHLORIDE FLUSH SYRINGE 10 ML IV SCH (09:33)
[2018-08-15] MEDS: RENVELA PO SCH ×3 (09:33→18:10)
[2018-08-15] MEDS: PROAMATINE PO SCH (09:34)
[2018-08-15] MEDS: ZINC SULFATE PO SCH (09:34)
[2018-08-15] MEDS: LOPRESSOR PO SCH (09:34)
--- NOTE | 2018-08-15 10:12 | Progress Note ---
Assessment and Plan Cultures: 08/09/18 Blood: GPC, 1 out 4 bottles 08/05/18 Stool: No WBC seen 08/01/18 Sputum: Pseudomonas 08/11/18 Deep Wound: Enterococcus 08/10/18 Buttock: mixed culture, MRSA, Kelbsiella,, E. 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 On admission, she had severe hypotension preceding bradyarythmia leading to PEA arrest on 07/18/2018. Re-admitted on 08/01/18 due to increasing SOB and congestion from Trach site. Now with SIRS: 1) Sepsis: Resolved. Etiology unclear, possibilities GPC bacteremia +/- infected stage IV sacral decubitus +/- HAP 2) GPC bacteremia: ? contaminant versus real ? source sacral decubitus. Blood cultures 08/09/2018 GPC 1 of 4 bottles, Repeat blood cultures ordered. CRP 13.3 3) HAP: Sputum 08/01/2018 Pseudomonas sens to zosyn. CXR initial 08/01 neg. Repeat CXR 08/09 patchy bibasilar infiltrates. Patient started on zyvox and zosyn. 4) Large sacral decubitus: with woundVAC. She is known to have stage IV sacral decubitus since first admission treated medically. Deep wound culture growing Enterococcocus, Buttock growing mixed culture, MRSA, MDR Klebsiella, Enterocococcus. E. coli Abdomen/Pelvis CT: Sacral ulcer as described. There are no convincing findings of abscess or osteomyelitis on noncontrast CT. 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 Large sacral decubitus: with woundVAC. Continue wound care. 6) History of recent aspiration pneumonia due to MDR Serratia treated with meropenem until 07/28/18 7) ESRD: On HD MWF- Thrombosed left arm AVG. Angioplasty yesterday. Recommendations: - continue PO Zyvox 600mg po bid - continue Meropenem 500mg IV every 24 hours - contact isolation - will ask if patient needs diverting ostomy. Currently she has a rectal tube. --upon discharge will do meropenem 500mg every 24 hours and Zyvox 600mg po bid for 21 days ending 09-04-18 -Interventional radiology consult placed for PICC line placement, IV team was unable to place order placed with case management Continue to monitor WBC, HGB and Platelets [facility] M: [phone] O:[phone] Subjective Date of service: 08/15/18 Principal diagnosis: Ac on Ch hypoxemic Resp failure; Diabetes type II; ESRD on dialysis (M/W/F) Objective - Constitutional Vitals: Vital Signs Temp Pulse Resp BP Pulse Ox 98.0 F 77 18 103/66 100 08/14/18 23:04 08/15/18 09:30 08/15/18 09:30 08/14/18 23:04 08/15/18 09:37 Temperature -Last 24 Hours Temperature 98.0 F Temperature 98.9 F Temperature 98.3 F Temperature 98.4 F - Labs CBC & Chem 7: 08/15/18 06:55 08/14/18 07:02 Labs: Abnormal lab results 08/14/18 08/14/18 08/15/18 Range/Units 11:47 17:13 00:00 Hgb (10.1-14.3) gm/dl Hct (30.3-42.9) % POC Glucose 224 H 152 H 134 H (70-105) 08/15/18 08/15/18 Range/Units 05:32 06:55 Hgb 8.1 L (10.1-14.3) gm/dl Hct 23.6 L (30.3-42.9) % POC Glucose 161 H (70-105)
[2018-08-15] MEDS ORDERED: NACL 0.9 (PRIMING MACHINE ONLY DIALYSIS) MC ONE (10:33)
--- NOTE | 2018-08-15 15:44 | Progress Note ---
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 Patient was recently discharged from this facility on Jul 29 after 11 day stay for multiple problems including Sepsis, aspiration pneumonia, Encephalopathy and Resp failure, ESRD. Patient was sent from [place] again on 08/01/18 for Low O2 sats which Improved to 100% after proper suctioning. Daughter felt that her mother is not being suctioned properly, requested placement to different facility, but no other acceptance. /HD access malfunction, thrombosed s/p thromboectomy: going for perm-a-cath today /Acute on chronic respiratory failure with hypoxia, Sec to improper or delayed suctioning at [place], Daughter wants a different SNF, Patient has been optimized to a large extent and discharged on Jul 29,breathing treatments, t-tube suction /Aspiration Pneumonitis with Sepsis, poa: continue abx, ID is following /Sepsis poa, GPC bacteremia +/- infected stage IV sacral decubitus +/- HAP: on Abx, ID managing /HAP; Sputum 08/01/2018 Pseudomonas sens to zosyn. ID following, CXR initial 08/01 neg. Repeat CXR 08/09 patchy bibasilar infiltrates. Patient started on zyvox and zosyn. /ESRD needing dialysis, continue HD per renal, Nephrology consulted /IDDM (insulin dependent diabetes mellitus): continue sliding scale coverage with T-feeding diet /HTN (hypertension), now hypotensive, give bolus, continue antihypertensives /GERD (gastroesophageal reflux disease), Cont PPI's /Large sacral decubitus with wound VAC, poa. She is known to have stage IV sacral decubitus since first admission treated medically: s/p Debridement of necrotic SQ tissue, fascia and muscle from stage 4 sacral pressure ulcer 08/11/18. ID ordered CT abd/pelvis which showed no abscess/osteomyelitis. /DVT prophylaxis, placed on heparin==>stopped due to the Anemia /Acute on chronic anemia of chronic ESRD: transfuse 1 units of prbc on 08/13/18 /MRSA skin infection now growing on buttock culture on Zyvox, contact isolation applied Disposition: continue inpatient, d/c back to [place]-->awaiting on cultures to finalize per ID ID Recommendations: - continue PO Zyvox 600mg po bid - continue Meropenem 500mg IV every 24 hours - contact isolation - will ask if patient needs diverting ostomy. Currently she has a rectal tube. --upon discharge will do meropenem 500mg every 24 hours and Zyvox 600mg po bid f or 21 days ending 09-04-18 -Interventional radiology consult placed for PICC line placement, IV team was unable to place order placed with case management Continue to monitor WBC, HGB and Platelets History Interval history: Patient was seen and examined. Follow-up on current diagnosis of Aspiration Pneumonia. Overnight uneventful. Patient is nonverbal. Imaging, nursing note, chart, labs and old chart reviewed. Discussed with patient. Hospitalist Physical - Physical exam Narrative exam: Gen: chronic disability, ill appearing, NAD, Awake, HEENT: NCAT, trach in place Neck: supple, no adenopathy, no thyromegaly, no JVD CVS/Heart: RRR, normal S1S2, pulses present bilaterally Chest/Lungs: CTA B, Symmetrical chest expansion, good air entry bilaterally GI/Abdomen: soft, NTND, PEG in place, good bowel sounds, no guarding or rebound /Bladder: no suprapubic tenderness, no CVA or paraspinal tenderness Extermity/Skin: no c/c/e, no obvious rash MSK: strophic contracted legs Neuro: CN 2-12 grossly intact, no new focal deficits, doesn't follow commands Psych: calm - Constitutional Vitals: Temp Pulse Resp BP Pulse Ox 99.0 F 75 18 167/60 100 08/15/18 12:14 08/15/18 14:39 08/15/18 14:39 08/15/18 12:14 08/15/18 14:42 General appearance: Present: well-nourished Results - Labs CBC & Chem 7: 08/15/18 06:55 08/14/18 07:02 Labs: Laboratory Last Values WBC 16.0 K/mm3 (4.5-11.0) H 08/14/18 07:02 RBC 2.55 M/mm3 (3.65-5.03) L 08/14/18 07:02 Hgb 8.1 gm/dl (10.1-14.3) L 08/15/18 06:55 Hct 23.6 % (30.3-42.9) L 08/15/18 06:55 MCV 92 fl (79-97) 08/14/18 07:02 MCH 30 pg (28-32) 08/14/18 07:02 MCHC 33 % (30-34) 08/14/18 07:02 RDW 17.0 % (13.2-15.2) H 08/14/18 07:02 Plt Count 370 K/mm3 (140-440) 08/14/18 07:02 Lymph % (Auto) 12.8 % (13.4-35.0) L 08/12/18 05:02 [place] % (Auto) 8.8 % (0.0-7.3) H 08/12/18 05:02 Eos % (Auto) 2.9 % (0.0-4.3) 08/12/18 05:02 Baso % (Auto) 0.6 % (0.0-1.8) 08/12/18 05:02 Lymph # 1.3 K/mm3 (1.2-5.4) 08/12/18 05:02 [place] # 0.9 K/mm3 (0.0-0.8) H 08/12/18 05:02 Eos # 0.3 K/mm3 (0.0-0.4) 08/12/18 05:02 Baso # 0.1 K/mm3 (0.0-0.1) 08/12/18 05:02 Add Manual Diff Complete 08/02/18 16:22 Total Counted 100 08/02/18 16:22 Seg Neutrophils % 74.9 % (40.0-70.0) H 08/12/18 05:02 Seg Neuts % (Manual) 94.0 % (40.0-70.0) H 08/02/18 16:22 Band Neutrophils % 0 % 08/02/18 16:22 Lymphocytes % (Manual) 6.0 % (13.4-35.0) L 08/02/18 16:22 Reactive Lymphs % (Man) 0 % 08/02/18 16:22 Monocytes % (Manual) 0 % (0.0-7.3) 08/02/18 16:22 Eosinophils % (Manual) 0 % (0.0-4.3) 08/02/18 16:22 Basophils % (Manual) 0 % (0.0-1.8) 08/02/18 16:22 Metamyelocytes % 0 % 08/02/18 16:22 Myelocytes % 0 % 08/02/18 16:22 Promyelocytes % 0 % 08/02/18 16:22 Blast Cells % 0 % 08/02/18 16:22 Nucleated RBC % Not Reportable 08/02/18 16:22 Seg Neutrophils # 7.5 K/mm3 (1.8-7.7) 08/12/18 05:02 Seg Neutrophils # Man 9.9 K/mm3 (1.8-7.7) H 08/02/18 16:22 Band Neutrophils # 0.0 K/mm3 08/02/18 16:22 Lymphocytes # (Manual) 0.6 K/mm3 (1.2-5.4) L 08/02/18 16:22 Abs React Lymphs (Man) 0.0 K/mm3 08/02/18 16:22 Monocytes # (Manual) 0.0 K/mm3 (0.0-0.8) 08/02/18 16:22 Eosinophils # (Manual) 0.0 K/mm3 (0.0-0.4) 08/02/18 16:22 Basophils # (Manual) 0.0 K/mm3 (0.0-0.1) 08/02/18 16:22 Metamyelocytes # 0.0 K/mm3 08/02/18 16:22 Myelocytes # 0.0 K/mm3 08/02/18 16:22 Promyelocytes # 0.0 K/mm3 08/02/18 16:22 Blast Cells # 0.0 K/mm3 08/02/18 16:22 WBC Morphology Not Reportable 08/02/18 16:22 Hypersegmented Neuts Not Reportable 08/02/18 16:22 Hyposegmented Neuts Not Reportable 08/02/18 16:22 Hypogranular Neuts Not Reportable 08/02/18 16:22 Smudge Cells Not Reportable 08/02/18 16:22 Toxic Granulation Not Reportable 08/02/18 16:22 Toxic Vacuolation Not Reportable 08/02/18 16:22 Dohle Bodies Not Reportable 08/02/18 16:22 Pelger-Huet Anomaly Not Reportable 08/02/18 16:22 Evelina Rods Not Reportable 08/02/18 16:22 Platelet Estimate Consistent w auto 08/02/18 16:22 Clumped Platelets Not Reportable 08/02/18 16:22 Plt Clumps, EDTA Not Reportable 08/02/18 16:22 Large Platelets 1+ 08/02/18 16:22 Giant Platelets Not Reportable 08/02/18 16:22 Platelet Satelliting Not Reportable 08/02/18 16:22 Plt Morphology Comment Not Reportable 08/02/18 16:22 RBC Morphology Not Reportable 08/02/18 16:22 Dimorphic RBCs Not Reportable 08/02/18 16:22 Polychromasia Not Reportable 08/02/18 16:22 Hypochromasia 1+ 08/02/18 16:22 Poikilocytosis Not Reportable 08/02/18 16:22 Anisocytosis 1+ 08/02/18 16:22 Microcytosis Not Reportable 08/02/18 16:22 Macrocytosis Not Reportable 08/02/18 16:22 Spherocytes Not Reportable 08/02/18 16:22 Pappenheimer Bodies Not Reportable 08/02/18 16:22 Sickle Cells Not Reportable 08/02/18 16:22 Target Cells Not Reportable 08/02/18 16:22 Tear Drop Cells Not Reportable 08/02/18 16:22 Ovalocytes Not Reportable 08/02/18 16:22 Helmet Cells Not Reportable 08/02/18 16:22 [place]-Pauline Bodies Not Reportable 08/02/18 16:22 [place] Rings Not Reportable 08/02/18 16:22 Kiki Cells Not Reportable 08/02/18 16:22 Bite Cells Not Reportable 08/02/18 16:22 Crenated Cell Not Reportable 08/02/18 16:22 Elliptocytes Not Reportable 08/02/18 16:22 Acanthocytes (Spur) Not Reportable 08/02/18 16:22 Rouleaux Not Reportable 08/02/18 16:22 Hemoglobin C Crystals Not Reportable 08/02/18 16:22 Schistocytes Not Reportable 08/02/18 16:22 Malaria parasites Not Reportable 08/02/18 16:22 Abraham Bodies Not Reportable 08/02/18 16:22 Hem Pathologist Commnt No 08/02/18 16:22 PT 14.4 Sec. (12.2-14.9) 08/01/18 11:30 INR 1.05 (0.87-1.13) 08/01/18 11:30 APTT 23.5 Sec. (24.2-36.6) L 08/01/18 11:30 POC ABG pH 7.403 (7.35-7.45) 08/02/18 09:07 POC ABG pCO2 43.2 (35-45) 08/02/18 09:07 POC ABG pO2 125 (80-105) H 08/02/18 09:07 POC ABG HCO3 26.9 08/02/18 09:07 POC ABG Total CO2 28 08/02/18 09:07 POC ABG O2 Sat 99 08/02/18 09:07 POC ABG Base Excess 2 08/02/18 09:07 FiO2 30 % 08/02/18 09:07 Sodium 133 mmol/L (137-145) L 08/14/18 07:02 Potassium 3.8 mmol/L (3.6-5.0) 08/14/18 07:02 Chloride 88.7 mmol/L (98-107) L 08/14/18 07:02 Carbon Dioxide 27 mmol/L (22-30) 08/14/18 07:02 Anion Gap 21 mmol/L 08/14/18 07:02 BUN 40 mg/dL (7-17) H 08/14/18 07:02 Creatinine 6.2 mg/dL (0.7-1.2) H 08/14/18 07:02 Estimated GFR 8 ml/min 08/14/18 07:02 BUN/Creatinine Ratio 6 % 08/14/18 07:02 Glucose 204 mg/dL (65-100) H 08/14/18 07:02 POC Glucose 172 (70-105) H 08/15/18 12:23 Hemoglobin A1c 5.3 % (4-6) 08/01/18 19:56 Calcium 8.9 mg/dL (8.4-10.2) 08/14/18 07:02 Magnesium 2.80 mg/dL (1.7-2.3) H 08/01/18 19:56 Total Bilirubin 0.30 mg/dL (0.1-1.2) 08/09/18 05:35 AST 18 units/L (5-40) 08/09/18 05:35 ALT 11 units/L (7-56) 08/09/18 05:35 Alkaline Phosphatase 101 units/L (35-129) 08/09/18 05:35 C-Reactive Protein 14.30 mg/dL (0.00-1.30) H 08/10/18 20:30 Total Protein 6.4 g/dL (6.3-8.2) 08/09/18 05:35 Albumin 2.0 g/dL (3.9-5) L 08/09/18 05:35 Albumin/Globulin Ratio 0.5 % 08/09/18 05:35 Prealbumin 0.277 g/L (0.200-0.400) 08/01/18 19:56 Blood Type O POSITIVE 08/13/18 07:37 Antibody Screen Negative 08/13/18 07:37 Crossmatch See Detail 08/13/18 07:37 Nutrition/Malnutrition Assess - Dietary Evaluation Nutrition/Malnutrition Findings: Nutrition Notes Start: 08/02/18 16:33 Freq: Status: Active Protocol: Document 08/11/18 10:48 (Rec: 08/11/18 10:55 SA [id number]) Co-Sign 08/11/18 10:48 LP Nutrition Notes Need for Assessment generated from: MD Order Initial or Follow up Reassessment Current Diagnosis CKD (stage V CKD) Diabetes Hypertension Respiratory Failure Other Pertinent Diagnosis ESRD on HD Current Diet NPO Labs/Tests Na: 133 Chl: 90.4 BUN: 57 Cr: 6.5 Glu: 184 Pertinent Medications Reviewed Height 5 ft 6 in Weight 95 kg [place] Body Weight (kg) 59.09 BMI 33.7 Weight Status Morbidly Obese Subjective/Other Information MD consult for write/manage TF . Patient not in room at time of visit. Patient has PEG. Percent of energy/protein needs met: 0%/0% Burn Absent Trauma Absent #1 Nutrition Diagnosis Inadequate oral intake Diagnosis Progress(for reassessment Continues documentation) Is patient on ventilator? No Is Patient Ambulatory and/or Out of Bed No REE-([facility]-confined to bed) 1866.432 Kcal/Kg value to use for calculation 17 Approximate Energy Requirements Using 1615 kcal/Kg Calculation Used for Recommendations [facility] Additional Notes Protein needs: 89-96g (1.2-1. 3g/kg AdjBW) AdjBW: 74kg Fluid: 1 L or per MD Nutrition Intervention Nutrition Support: Nepro at 40mL/hr with 50mL flush q4h or per MD Kcal 1,728 Protein (gm) 78 Fluid (mL) 698 Goal #1 TF to continue to meet at least 75% of energy and protein needs Anticipated Discharge Needs: Nepro at 40mL/hr with 50mL flush q4h or per MD order Follow-Up By: 08/16/18 Additional Comments F/U: TF tolerance and stable TF
--- NOTE | 2018-08-15 18:44 | Progress Note ---
Assessment and Plan Patient awake. Resting on trach collar, FIO2 28%. O2 saturation 95%. No acute respiratory distress. About to receive dialysis. - Patient Problems (1) Acute respiratory failure with hypoxia Current Visit: Yes Status: Acute Plan to address problem: Trach collar, FIO2 35% and O2 saturation 95%.No acute respiratory distress.Awake, Not following commands Albuterol/atrovent aerosol treatments q 6 hours. Respiratory suctioning. (2) ESRD needing dialysis Current Visit: Yes Status: Chronic Plan to address problem: Management as per nephrology. (3) GERD (gastroesophageal reflux disease) Current Visit: Yes Status: Chronic Qualifiers: Esophagitis presence: with esophagitis Qualified Code(s): K21.0 - Gastro-esophageal reflux disease with esophagitis Plan to address problem: Patient is on Famotidine. (4) HTN (hypertension) Current Visit: Yes Status: Chronic Qualifiers: Hypertension type: essential hypertension Qualified Code(s): I10 - Essential (primary) hypertension Plan to address problem: Management as per primary care. (5) IDDM (insulin dependent diabetes mellitus) Current Visit: Yes Status: Chronic Plan to address problem: Management as per primary care. (6) History of CVA (cerebrovascular accident) Current Visit: No Status: Chronic Plan to address problem: Management as per primary care and neurology. (7) Pressure ulcer of sacral region, stage 3 Current Visit: Yes Status: Acute Plan to address problem: wound care. Patient is on Zyvox. Subjective Date of service: 08/15/18 Principal diagnosis: Ac on Ch hypoxemic Resp failure; Diabetes type II; ESRD on dialysis (M/W/F) Interval history: Patient awake. Resting on trach collar, FIO2 28%. O2 saturation 95%. No acute respiratory distress. About to receive dialysis. Objective Vital Signs - 12hr 08/15/18 08/15/18 08/15/18 09:10 09:30 09:37 Temperature Pulse Rate Pulse Rate [ 74 77 Posterior Bilateral Throughout] Respiratory Rate Respiratory 20 18 Rate [Posterior Bilateral Throughout] Blood Pressure Blood Pressure [Right] O2 Sat by Pulse 100 Oximetry O2 Sat by Pulse Oximetry [ Assessment] 08/15/18 08/15/18 08/15/18 12:14 14:21 14:39 Temperature 99.0 F Pulse Rate 80 Pulse Rate [ 75 75 Posterior Bilateral Throughout] Respiratory 20 Rate Respiratory 18 18 Rate [Posterior Bilateral Throughout] Blood Pressure 167/60 Blood Pressure [Right] O2 Sat by Pulse 100 Oximetry O2 Sat by Pulse Oximetry [ Assessment] 08/15/18 08/15/18 08/15/18 14:42 17:00 18:13 Temperature 98.9 F Pulse Rate 79 79 Pulse Rate [ Posterior Bilateral Throughout] Respiratory 24 Rate Respiratory Rate [Posterior Bilateral Throughout] Blood Pressure 191/81 Blood Pressure 160/90 [Right] O2 Sat by Pulse 95 Oximetry O2 Sat by Pulse 100 Oximetry [ Assessment] Constitutional: no acute distress, alert, other (middle aged AAF, normocephalic with mildly increased respiratory effort on t-piece) Eyes: non-icteric ENT: oropharynx moist Neck: supple, no lymphadenopathy, no JVD, other (+ midline tracheostomy tube) Effort: mildly labored Ascultation: Bilateral: diminished breath sounds, rhonchi Percussion: Bilateral: not dull Cardiovascular: regular rate and rhythm, murmur noted (s1,S2, systolic murmur) Gastrointestinal: normoactive bowel sounds, soft, non-tender, non-distended, other (PEG in place) Integumentary: rash Extremities: no cyanosis, no edema, pulses normal, no ischemia or petechiae Neurologic: pupils equal and round, other (not obeying commands to adequately assess) Psychiatric: other (flat affect) CBC and BMP: 08/15/18 06:55 08/14/18 07:02 ABG, PT/INR, D-dimer: ABG POC ABG pH 7.403 (7.35-7.45) 08/02/18 09:07 POC ABG pCO2 43.2 (35-45) 08/02/18 09:07 POC ABG pO2 125 (80-105) H 08/02/18 09:07 POC ABG HCO3 26.9 08/02/18 09:07 POC ABG Total CO2 28 08/02/18 09:07 POC ABG O2 Sat 99 08/02/18 09:07 PT/INR, D-dimer PT 14.4 Sec. (12.2-14.9) 08/01/18 11:30 INR 1.05 (0.87-1.13) 08/01/18 11:30 Abnormal lab findings: Abnormal Labs 08/01/18 08/01/18 08/01/18 11:30 11:30 11:30 WBC 13.7 H RBC 2.81 L Hgb 8.9 L Hct 27.4 L MCV 98 H MCH MCHC RDW 16.0 H Lymph % (Auto) 10.1 L Butts % (Auto) Lymph # Butts # Seg Neutrophils % 84.3 H Seg Neuts % (Manual) Lymphocytes % (Manual) Seg Neutrophils # 11.6 H Seg Neutrophils # Man Lymphocytes # (Manual) APTT 23.5 L POC ABG pCO2 POC ABG pO2 Sodium 133 L Potassium Chloride 89.8 L BUN 78 H Creatinine 8.7 H D Glucose 177 H POC Glucose Magnesium ALT C-Reactive Protein Albumin Crossmatch 08/01/18 08/01/18 08/02/18 18:38 19:56 09:07 WBC RBC Hgb Hct MCV MCH MCHC RDW Lymph % (Auto) Butts % (Auto) Lymph # Butts # Seg Neutrophils % Seg Neuts % (Manual) Lymphocytes % (Manual) Seg Neutrophils # Seg Neutrophils # Man Lymphocytes # (Manual) APTT POC ABG pCO2 48.2 H POC ABG pO2 146 H 125 H Sodium Potassium Chloride BUN Creatinine Glucose POC Glucose Magnesium 2.80 H ALT C-Reactive Protein Albumin Crossmatch 08/02/18 08/02/18 08/02/18 16:22 16:22 17:21 WBC RBC 2.42 L Hgb 8.1 L Hct 22.8 L MCV MCH 34 H MCHC 36 H RDW 15.7 H Lymph % (Auto) Butts % (Auto) Lymph # Butts # Seg Neutrophils % Seg Neuts % (Manual) 94.0 H Lymphocytes % (Manual) 6.0 L Seg Neutrophils # Seg Neutrophils # Man 9.9 H Lymphocytes # (Manual) 0.6 L APTT POC ABG pCO2 POC ABG pO2 Sodium 134 L Potassium Chloride 90.7 L BUN 38 H Creatinine 4.8 H Glucose 175 H POC Glucose 191 H Magnesium ALT < 5 L C-Reactive Protein Albumin 2.9 L Crossmatch 08/03/18 08/03/18 08/03/18 05:19 07:43 07:43 WBC RBC 2.67 L Hgb 8.3 L Hct 24.9 L MCV MCH MCHC RDW 15.6 H Lymph % (Auto) Butts % (Auto) Lymph # Butts # Seg Neutrophils % Seg Neuts % (Manual) Lymphocytes % (Manual) Seg Neutrophils # Seg Neutrophils # Man Lymphocytes # (Manual) APTT POC ABG pCO2 POC ABG pO2 Sodium 134 L Potassium Chloride 89.7 L BUN 52 H Creatinine 5.9 H Glucose 180 H POC Glucose 212 H Magnesium ALT C-Reactive Protein Albumin Crossmatch 08/03/18 08/03/18 08/04/18 12:32 23:42 05:42 WBC RBC Hgb Hct MCV MCH MCHC RDW Lymph % (Auto) Butts % (Auto) Lymph # Butts # Seg Neutrophils % Seg Neuts % (Manual) Lymphocytes % (Manual) Seg Neutrophils # Seg Neutrophils # Man Lymphocytes # (Manual) APTT POC ABG pCO2 POC ABG pO2 Sodium Potassium Chloride BUN Creatinine Glucose POC Glucose 223 H 139 H 151 H Magnesium ALT C-Reactive Protein Albumin Crossmatch 08/04/18 08/04/18 08/04/18 12:11 17:12 20:55 WBC RBC Hgb Hct MCV MCH MCHC RDW Lymph % (Auto) Butts % (Auto) Lymph # Butts # Seg Neutrophils % Seg Neuts % (Manual) Lymphocytes % (Manual) Seg Neutrophils # Seg Neutrophils # Man Lymphocytes # (Manual) APTT POC ABG pCO2 POC ABG pO2 Sodium Potassium Chloride BUN Creatinine Glucose POC Glucose 193 H 137 H 175 H Magnesium ALT C-Reactive Protein Albumin Crossmatch 08/04/18 08/05/18 08/05/18 23:23 05:55 12:03 WBC RBC Hgb Hct MCV MCH MCHC RDW Lymph % (Auto) Butts % (Auto) Lymph # Butts # Seg Neutrophils % Seg Neuts % (Manual) Lymphocytes % (Manual) Seg Neutrophils # Seg Neutrophils # Man Lymphocytes # (Manual) APTT POC ABG pCO2 POC ABG pO2 Sodium Potassium Chloride BUN Creatinine Glucose POC Glucose 165 H 135 H 158 H Magnesium ALT C-Reactive Protein Albumin Crossmatch 08/05/18 08/06/18 08/06/18 23:42 06:05 10:25 WBC 11.8 H RBC 2.61 L Hgb 8.2 L Hct 24.9 L MCV MCH MCHC RDW 15.8 H Lymph % (Auto) Butts % (Auto) Lymph # Butts # Seg Neutrophils % Seg Neuts % (Manual) Lymphocytes % (Manual) Seg Neutrophils # Seg Neutrophils # Man Lymphocytes # (Manual) APTT POC ABG pCO2 POC ABG pO2 Sodium Potassium Chloride BUN Creatinine Glucose POC Glucose 120 H 196 H Magnesium ALT C-Reactive Protein Albumin Crossmatch 08/06/18 08/06/18 08/06/18 10:25 12:31 17:26 WBC RBC Hgb Hct MCV MCH MCHC RDW Lymph % (Auto) Butts % (Auto) Lymph # Butts # Seg Neutrophils % Seg Neuts % (Manual) Lymphocytes % (Manual) Seg Neutrophils # Seg Neutrophils # Man Lymphocytes # (Manual) APTT POC ABG pCO2 POC ABG pO2 Sodium 136 L Potassium 3.3 L D Chloride 93.2 L BUN 32 H Creatinine 4.5 H Glucose 134 H POC Glucose 184 H 174 H Magnesium ALT C-Reactive Protein Albumin Crossmatch 08/07/18 08/07/18 08/07/18 00:32 05:47 11:53 WBC RBC Hgb Hct MCV MCH MCHC RDW Lymph % (Auto) Butts % (Auto) Lymph # Butts # Seg Neutrophils % Seg Neuts % (Manual) Lymphocytes % (Manual) Seg Neutrophils # Seg Neutrophils # Man Lymphocytes # (Manual) APTT POC ABG pCO2 POC ABG pO2 Sodium Potassium Chloride BUN Creatinine Glucose POC Glucose 190 H 203 H 161 H Magnesium ALT C-Reactive Protein Albumin Crossmatch 08/07/18 08/08/18 08/08/18 16:39 00:49 06:41 WBC RBC Hgb Hct MCV MCH MCHC RDW Lymph % (Auto) Butts % (Auto) Lymph # Butts # Seg Neutrophils % Seg Neuts % (Manual) Lymphocytes % (Manual) Seg Neutrophils # Seg Neutrophils # Man Lymphocytes # (Manual) APTT POC ABG pCO2 POC ABG pO2 Sodium Potassium Chloride BUN Creatinine Glucose POC Glucose 217 H 186 H 167 H Magnesium ALT C-Reactive Protein Albumin Crossmatch 08/08/18 08/08/18 08/09/18 13:09 16:49 00:02 WBC RBC Hgb Hct MCV MCH MCHC RDW Lymph % (Auto) Butts % (Auto) Lymph # Butts # Seg Neutrophils % Seg Neuts % (Manual) Lymphocytes % (Manual) Seg Neutrophils # Seg Neutrophils # Man Lymphocytes # (Manual) APTT POC ABG pCO2 POC ABG pO2 Sodium Potassium Chloride BUN Creatinine Glucose POC Glucose 224 H 212 H 188 H Magnesium ALT C-Reactive Protein Albumin Crossmatch 08/09/18 08/09/18 08/09/18 05:35 05:35 05:47 WBC RBC 2.93 L Hgb 9.3 L Hct 27.1 L MCV MCH MCHC RDW 15.7 H Lymph % (Auto) 10.1 L Butts % (Auto) Lymph # 1.0 L Butts # Seg Neutrophils % 83.6 H Seg Neuts % (Manual) Lymphocytes % (Manual) Seg Neutrophils # 8.5 H Seg Neutrophils # Man Lymphocytes # (Manual) APTT POC ABG pCO2 POC ABG pO2 Sodium 135 L Potassium 3.3 L Chloride 93.1 L BUN 39 H Creatinine 5.3 H Glucose 172 H POC Glucose 207 H Magnesium ALT C-Reactive Protein Albumin 2.0 L Crossmatch 08/09/18 08/09/18 08/09/18 11:56 18:30 20:23 WBC RBC Hgb Hct MCV MCH MCHC RDW Lymph % (Auto) Butts % (Auto) Lymph # Butts # Seg Neutrophils % Seg Neuts % (Manual) Lymphocytes % (Manual) Seg Neutrophils # Seg Neutrophils # Man Lymphocytes # (Manual) APTT POC ABG pCO2 POC ABG pO2 Sodium Potassium Chloride BUN Creatinine Glucose POC Glucose 272 H 148 H 197 H Magnesium ALT C-Reactive Protein Albumin Crossmatch 08/10/18 08/10/18 08/10/18 01:09 05:12 05:12 WBC RBC 2.32 L Hgb 7.2 L Hct 21.6 L MCV MCH MCHC RDW 16.1 H Lymph % (Auto) Butts % (Auto) Lymph # Butts # Seg Neutrophils % Seg Neuts % (Manual) Lymphocytes % (Manual) Seg Neutrophils # Seg Neutrophils # Man Lymphocytes # (Manual) APTT POC ABG pCO2 POC ABG pO2 Sodium 133 L Potassium Chloride 90.4 L BUN 57 H Creatinine 6.5 H Glucose 184 H POC Glucose 213 H Magnesium ALT C-Reactive Protein Albumin Crossmatch 08/10/18 08/10/18 08/11/18 06:09 20:30 00:51 WBC RBC Hgb Hct MCV MCH MCHC RDW Lymph % (Auto) Butts % (Auto) Lymph # Butts # Seg Neutrophils % Seg Neuts % (Manual) Lymphocytes % (Manual) Seg Neutrophils # Seg Neutrophils # Man Lymphocytes # (Manual) APTT POC ABG pCO2 POC ABG pO2 Sodium Potassium Chloride BUN Creatinine Glucose POC Glucose 185 H 181 H Magnesium ALT C-Reactive Protein 14.30 H Albumin Crossmatch 08/11/18 08/11/1808/11/19 05:35 10:22 10:22 WBC RBC Hgb 6.9 L Hct 20.7 L MCV MCH MCHC RDW Lymph % (Auto) Butts % (Auto) Lymph # Butts # Seg Neutrophils % Seg Neuts % (Manual) Lymphocytes % (Manual) Seg Neutrophils # Seg Neutrophils # Man Lymphocytes # (Manual) APTT POC ABG pCO2 POC ABG pO2 Sodium 132 L Potassium Chloride 89.8 L BUN 61 H Creatinine 7.1 H Glucose 187 H POC Glucose 185 H Magnesium ALT C-Reactive Protein Albumin Crossmatch 08/11/18 08/11/18 08/12/18 11:01 17:10 01:35 WBC RBC Hgb Hct MCV MCH MCHC RDW Lymph % (Auto) Butts % (Auto) Lymph # Butts # Seg Neutrophils % Seg Neuts % (Manual) Lymphocytes % (Manual) Seg Neutrophils # Seg Neutrophils # Man Lymphocytes # (Manual) APTT POC ABG pCO2 POC ABG pO2 Sodium Potassium Chloride BUN Creatinine Glucose POC Glucose 197 H 170 H 214 H Magnesium ALT C-Reactive Protein Albumin Crossmatch 08/12/18 08/12/18 08/12/18 05:02 05:09 13:51 WBC RBC 2.20 L Hgb 6.8 L Hct 20.7 L MCV MCH MCHC RDW 16.7 H Lymph % (Auto) 12.8 L Butts % (Auto) 8.8 H Lymph # Butts # 0.9 H Seg Neutrophils % 74.9 H Seg Neuts % (Manual) Lymphocytes % (Manual) Seg Neutrophils # Seg Neutrophils # Man Lymphocytes # (Manual) APTT POC ABG pCO2 POC ABG pO2 Sodium Potassium Chloride BUN Creatinine Glucose POC Glucose 187 H 221 H Magnesium ALT C-Reactive Protein Albumin Crossmatch 08/12/18 08/12/18 08/13/18 16:42 23:33 05:39 WBC RBC Hgb 6.3 L Hct 19.3 L* MCV MCH MCHC RDW Lymph % (Auto) Butts % (Auto) Lymph # Butts # Seg Neutrophils % Seg Neuts % (Manual) Lymphocytes % (Manual) Seg Neutrophils # Seg Neutrophils # Man Lymphocytes # (Manual) APTT POC ABG pCO2 POC ABG pO2 Sodium Potassium Chloride BUN Creatinine Glucose POC Glucose 187 H 236 H Magnesium ALT C-Reactive Protein Albumin Crossmatch 08/13/18 08/13/18 08/13/18 06:47 07:37 11:45 WBC RBC Hgb Hct MCV MCH MCHC RDW Lymph % (Auto) Butts % (Auto) Lymph # Butts # Seg Neutrophils % Seg Neuts % (Manual) Lymphocytes % (Manual) Seg Neutrophils # Seg Neutrophils # Man Lymphocytes # (Manual) APTT POC ABG pCO2 POC ABG pO2 Sodium Potassium Chloride BUN Creatinine Glucose POC Glucose 267 H 255 H Magnesium ALT C-Reactive Protein Albumin Crossmatch See Detail 08/13/18 08/13/18 08/14/18 16:24 23:10 05:13 WBC RBC Hgb Hct MCV MCH MCHC RDW Lymph % (Auto) Butts % (Auto) Lymph # Butts # Seg Neutrophils % Seg Neuts % (Manual) Lymphocytes % (Manual) Seg Neutrophils # Seg Neutrophils # Man Lymphocytes # (Manual) APTT POC ABG pCO2 POC ABG pO2 Sodium Potassium Chloride BUN Creatinine Glucose POC Glucose 150 H 194 H 138 H Magnesium ALT C-Reactive Protein Albumin Crossmatch 08/14/18 08/14/18 08/14/18 07:02 07:02 11:47 WBC 16.0 H RBC 2.55 L Hgb 7.6 L Hct 23.5 L MCV MCH MCHC RDW 17.0 H Lymph % (Auto) Butts % (Auto) Lymph # Butts # Seg Neutrophils % Seg Neuts % (Manual) Lymphocytes % (Manual) Seg Neutrophils # Seg Neutrophils # Man Lymphocytes # (Manual) APTT POC ABG pCO2 POC ABG pO2 Sodium 133 L Potassium Chloride 88.7 L BUN 40 H Creatinine 6.2 H Glucose 204 H POC Glucose 224 H Magnesium ALT C-Reactive Protein Albumin Crossmatch 08/14/18 08/15/18 08/15/18 17:13 00:00 05:32 WBC RBC Hgb Hct MCV MCH MCHC RDW Lymph % (Auto) Butts % (Auto) Lymph # Butts # Seg Neutrophils % Seg Neuts % (Manual) Lymphocytes % (Manual) Seg Neutrophils # Seg Neutrophils # Man Lymphocytes # (Manual) APTT POC ABG pCO2 POC ABG pO2 Sodium Potassium Chloride BUN Creatinine Glucose POC Glucose 152 H 134 H 161 H Magnesium ALT C-Reactive Protein Albumin Crossmatch 08/15/18 08/15/18 08/15/18 06:55 12:23 17:10 WBC RBC Hgb 8.1 L Hct 23.6 L MCV MCH MCHC RDW Lymph % (Auto) Butts % (Auto) Lymph # Butts # Seg Neutrophils % Seg Neuts % (Manual) Lymphocytes % (Manual) Seg Neutrophils # Seg Neutrophils # Man Lymphocytes # (Manual) APTT POC ABG pCO2 POC ABG pO2 Sodium Potassium Chloride BUN Creatinine Glucose POC Glucose 172 H 151 H Magnesium ALT C-Reactive Protein Albumin Crossmatch Allied health notes reviewed: nursing
[2018-08-15] MEDS: PROCRIT SUB-Q PRN (22:40)
[2018-08-16] MEDS: LOPRESSOR PO SCH ×3 (00:20→21:30)
[2018-08-16] MEDS: SODIUM CHLORIDE FLUSH SYRINGE 10 ML IV SCH ×3 (00:21→21:31)
[2018-08-16] MEDS: ZYVOX PO SCH ×3 (00:21→23:27)
[2018-08-16] MEDS: IMODIUM PO SCH ×5 (00:21→23:27)
[2018-08-16] MEDS: HumaLOG SUB-Q SCH ×5 (00:22→18:49)
[2018-08-16 07:29] LABS: Basophils # (Auto) 0.1 K/mm3 (0.0-0.1); Basophils % (Auto) 0.6 % (0.0-1.8); Eosinophils # (Auto) 0.2 K/mm3 (0.0-0.4); Eosinophils % (Auto) 1.4 % (0.0-4.3); Hematocrit 25.7 % (30.3-42.9); Hemoglobin 8.5 gm/dl (10.1-14.3); Lymphocytes # (Auto) 1.6 K/mm3 (1.2-5.4); Lymphocytes % (Auto) 12.1 % (13.4-35.0); Mean Corpuscular HGB Conc 33 % (30-34); Mean Corpuscular Volume 91 fl (79-97); Monocytes # (Auto) 0.9 K/mm3 (0.0-0.8); Monocytes % (Auto) 6.5 % (0.0-7.3); Platelet Count 394 K/mm3 (140-440); Red Blood Count 2.82 M/mm3 (3.65-5.03); Red Cell Distribution Width 16.3 % (13.2-15.2)
[2018-08-16] MEDS: DUONEB *Not for PRN Use IH SCH ×3 (08:24→22:50)
[2018-08-16] MEDS: RENVELA PO SCH ×3 (08:49→18:47)
--- NOTE | 2018-08-16 09:26 | Progress Note ---
Assessment and Plan Cultures: 08/09/18 Blood: GPC, 1 out 4 bottles 08/05/18 Stool: No WBC seen 08/01/18 Sputum: Pseudomonas 08/11/18 Deep Wound: Enterococcus 08/10/18 Buttock: mixed culture, MRSA, Kelbsiella,, E. 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 On admission, she had severe hypotension preceding bradyarythmia leading to PEA arrest on 07/18/2018. Re-admitted on 08/01/18 due to increasing SOB and congestion from Trach site. Now with SIRS: 1) Sepsis: Improved, leukocytosis trending down. Etiology unclear, possibilities GPC bacteremia +/- infected stage IV sacral decubitus +/- HAP 2) GPC bacteremia: ? contaminant versus real ? source sacral decubitus. Blood cultures 08/09/2018 GPC 1 of 4 bottles, Repeat blood cultures ordered. CRP 13.3 3) HAP: Sputum 08/01/2018 Pseudomonas sens to zosyn. CXR initial 08/01 neg. Repeat CXR 08/09 patchy bibasilar infiltrates. Patient started on zyvox and zosyn. 4) Large sacral decubitus: with woundVAC. She is known to have stage IV sacral decubitus since first admission treated medically. Deep wound culture growing Enterococcocus, Buttock growing mixed culture, MRSA, MDR Klebsiella, Enterocococcus. E. coli Abdomen/Pelvis CT: Sacral ulcer as described. There are no convincing findings of abscess or osteomyelitis on noncontrast CT. 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 Large sacral decubitus: with woundVAC. Continue wound care. 6) History of recent aspiration pneumonia due to MDR Serratia treated with meropenem until 07/28/18 7) ESRD: On HD MWF- Thrombosed left arm AVG. Angioplasty yesterday. 8) Persistent Diarrhea : rectal tube. continue to monitor closely Recommendations: - continue PO Zyvox 600mg po bid - continue Meropenem 500mg IV every 24 hours - contact isolation --upon discharge will do meropenem 500mg every 24 hours and Zyvox 600mg po bid for 21 days ending 09-04-18 - f/u interventional radiology consult for PICC line placement, OPAT therapy for 3 weeks. -order placed with case management -Continue to monitor WBC, HGB and Platelets -monitor closely for Serotonin Syndrome while on Zyvox and Seroquel [facility] M: [phone] O:[phone] Subjective Date of service: 08/16/18 Principal diagnosis: Ac on Ch hypoxemic Resp failure; Diabetes type II; ESRD on dialysis (M/W/F) Interval history: Patient seen and examined. Asleep, easily arousable, no acute distress observed. Objective - Exam Narrative Exam: General appearance: Asleep, easily arousable non conversant Eyes: anicteric sclerae, moist conjunctivae; no lid-lag; PERRLA HENT: Atraumatic; oropharynx clear Neck: Trach Lungs: clear to auscultation. CV: RRR, no murmurs Abdomen: Soft, non-tender; +PEG GI: active bowel sounds, +rectal tube. Extremities: No peripheral edema or extremity lymphadenopathy Skin: sacral wound VAC Psych: Appropriate affect, alert and oriented to person, place and time. Neuro: alert non verbal - Constitutional Vitals: Vital Signs Temp Pulse Resp BP Pulse Ox 98.9 F 80 17 156/79 100 08/16/18 05:38 08/16/18 08:41 08/16/18 08:41 08/16/18 05:38 08/16/18 08:39 Temperature -Last 24 Hours Temperature 98.9 F Temperature 98.7 F Temperature 97.6 F Temperature 97.6 F Temperature 98.9 F Temperature 99.0 F - Labs CBC & Chem 7: 08/16/18 07:04 08/14/18 07:02 Labs: Abnormal lab results 08/15/18 08/15/18 08/16/18 Range/Units 12:23 17:10 00:21 WBC (4.5-11.0) K/mm3 RBC (3.65-5.03) M/mm3 Hgb (10.1-14.3) gm/dl Hct (30.3-42.9) % RDW (13.2-15.2) % Lymph % (Auto) (13.4-35.0) % [place] # (0.0-0.8) K/mm3 Seg Neutrophils % (40.0-70.0) % Seg Neutrophils # (1.8-7.7) K/mm3 POC Glucose 172 H 151 H 148 H (70-105) 08/16/18 08/16/18 Range/Units 06:39 07:04 WBC 13.4 H (4.5-11.0) K/mm3 RBC 2.82 L (3.65-5.03) M/mm3 Hgb 8.5 L (10.1-14.3) gm/dl Hct 25.7 L (30.3-42.9) % RDW 16.3 H (13.2-15.2) % Lymph % (Auto) 12.1 L (13.4-35.0) % [place] # 0.9 H (0.0-0.8) K/mm3 Seg Neutrophils % 79.4 H (40.0-70.0) % Seg Neutrophils # 10.6 H (1.8-7.7) K/mm3 POC Glucose 147 H (70-105)
--- NOTE | 2018-08-16 12:00 | Progress Note ---
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 Patient was recently discharged from this facility on Jul 29 after 11 day stay for multiple problems including Sepsis, aspiration pneumonia, Encephalopathy and Resp failure, ESRD. Patient was sent from [place] again on 08/01/18 for Low O2 sats which Improved to 100% after proper suctioning. Daughter felt that her mother is not being suctioned properly, requested placement to different facility, but no other acceptance. /HD access malfunction, thrombosed s/p thromboectomy: placement of perm-a-cath to left CW /Acute on chronic respiratory failure with hypoxia, Sec to improper or delayed suctioning at [place], Daughter wants a different SNF, Patient has been optimized to a large extent and discharged on Jul 29,breathing treatments, t-tube suction /Aspiration Pneumonitis with Sepsis, poa: continue abx, ID is following /Sepsis poa, GPC bacteremia +/- infected stage IV sacral decubitus +/- HAP: on Abx, ID managing /HAP; Sputum 08/01/2018 Pseudomonas sens to zosyn. ID following, CXR initial 08/01 neg. Repeat CXR 08/09 patchy bibasilar infiltrates. Patient started on zyvox and zosyn. /ESRD needing dialysis, continue HD per renal, Nephrology consulted /IDDM (insulin dependent diabetes mellitus): continue sliding scale coverage with T-feeding diet /HTN (hypertension), now hypotensive, give bolus, continue antihypertensives /GERD (gastroesophageal reflux disease), Cont PPI's /Large sacral decubitus with wound VAC, poa. She is known to have stage IV sacral decubitus since first admission treated medically: s/p Debridement of necrotic SQ tissue, fascia and muscle from stage 4 sacral pressure ulcer 08/11/18. ID ordered CT abd/pelvis which showed no abscess/osteomyelitis. /DVT prophylaxis, placed on heparin==>stopped due to the Anemia /Acute on chronic anemia of chronic ESRD: transfuse 1 units of prbc on 08/13/18 /MRSA skin infection now growing on buttock culture on Zyvox, contact isolation applied Disposition: continue inpatient, d/c back to [place]-->awaiting on cultures to finalize per ID ID Recommendations: - continue PO Zyvox 600mg po bid - continue Meropenem 500mg IV every 24 hours - contact isolation - will ask if patient needs diverting ostomy. Currently she has a rectal tube. --upon discharge will do meropenem 500mg every 24 hours and Zyvox 600mg po bid for 21 days ending 09-04-18 -Interventional radiology consult placed for PICC line placement, IV team was unable to place order placed with case management Continue to monitor WBC, HGB and Platelets 08/16/18: Waiting for IR to place PICC line, then back to [place] History Interval history: Patient was seen and examined. Follow-up on current diagnosis of Aspiration Pneumonia. Overnight uneventful. Patient is nonverbal. Imaging, nursing note, art, labs and old chart reviewed. Discussed with patient. Hospitalist Physical - Physical exam Narrative exam: Gen: chronic disability, ill appearing, NAD, Awake, HEENT: NCAT, trach in place Neck: supple, no adenopathy, no thyromegaly, no JVD CVS/Heart: RRR, normal S1S2, pulses present bilaterally Chest/Lungs: CTA B, Symmetrical chest expansion, good air entry bilaterally GI/Abdomen: soft, NTND, PEG in place, good bowel sounds, no guarding or rebound /Bladder: no suprapubic tenderness, no CVA or paraspinal tenderness Extermity/Skin: no c/c/e, no obvious rash MSK: strophic contracted legs Neuro: CN 2-12 grossly intact, no new focal deficits, doesn't follow commands Psych: calm - Constitutional Vitals: Temp Pulse Resp BP Pulse Ox 98.6 F 84 20 186/80 100 08/16/18 11:52 08/16/18 11:52 08/16/18 11:52 08/16/18 11:52 08/16/18 08:39 General appearance: Present: well-nourished Results - Labs CBC & Chem 7: 08/16/18 07:04 08/14/18 07:02 Labs: Laboratory Last Values WBC 13.4 K/mm3 (4.5-11.0) H 08/16/18 07:04 RBC 2.82 M/mm3 (3.65-5.03) L 08/16/18 07:04 Hgb 8.5 gm/dl (10.1-14.3) L 08/16/18 07:04 Hct 25.7 % (30.3-42.9) L 08/16/18 07:04 MCV 91 fl (79-97) 08/16/18 07:04 MCH 30 pg (28-32) 08/16/18 07:04 MCHC 33 % (30-34) 08/16/18 07:04 RDW 16.3 % (13.2-15.2) H 08/16/18 07:04 Plt Count 394 K/mm3 (140-440) 08/16/18 07:04 Lymph % (Auto) 12.1 % (13.4-35.0) L 08/16/18 07:04 [place] % (Auto) 6.5 % (0.0-7.3) 08/16/18 07:04 Eos % (Auto) 1.4 % (0.0-4.3) 08/16/18 07:04 Baso % (Auto) 0.6 % (0.0-1.8) 08/16/18 07:04 Lymph # 1.6 K/mm3 (1.2-5.4) 08/16/18 07:04 [place] # 0.9 K/mm3 (0.0-0.8) H 08/16/18 07:04 Eos # 0.2 K/mm3 (0.0-0.4) 08/16/18 07:04 Baso # 0.1 K/mm3 (0.0-0.1) 08/16/18 07:04 Add Manual Diff Complete 08/02/18 16:22 Total Counted 100 08/02/18 16:22 Seg Neutrophils % 79.4 % (40.0-70.0) H 08/16/18 07:04 Seg Neuts % (Manual) 94.0 % (40.0-70.0) H 08/02/18 16:22 Band Neutrophils % 0 % 08/02/18 16:22 Lymphocytes % (Manual) 6.0 % (13.4-35.0) L 08/02/18 16:22 Reactive Lymphs % (Man) 0 % 08/02/18 16:22 Monocytes % (Manual) 0 % (0.0-7.3) 08/02/18 16:22 Eosinophils % (Manual) 0 % (0.0-4.3) 08/02/18 16:22 Basophils % (Manual) 0 % (0.0-1.8) 08/02/18 16:22 Metamyelocytes % 0 % 08/02/18 16:22 Myelocytes % 0 % 08/02/18 16: Promyelocytes % 0 % 08/02/18 16:22 Blast Cells % 0 % 08/02/18 16:22 Nucleated RBC % Not Reportable 08/02/18 16:22 Seg Neutrophils # 10.6 K/mm3 (1.8-7.7) H 08/16/18 07:04 Seg Neutrophils # Man 9.9 K/mm3 (1.8-7.7) H 08/02/18 16:22 Band Neutrophils # 0.0 K/mm3 08/02/18 16:22 Lymphocytes # (Manual) 0.6 K/mm3 (1.2-5.4) L 08/02/18 16:22 Abs React Lymphs (Man) 0.0 K/mm3 08/02/18 16:22 Monocytes # (Manual) 0.0 K/mm3 (0.0-0.8) 08/02/18 16:22 Eosinophils # (Manual) 0.0 K/mm3 (0.0-0.4) 08/02/18 16:22 Basophils # (Manual) 0.0 K/mm3 (0.0-0.1) 08/02/18 16:22 Metamyelocytes # 0.0 K/mm3 08/02/18 16:22 Myelocytes # 0.0 K/mm3 08/02/18 16:22 Promyelocytes # 0.0 K/mm3 08/02/18 16:22 Blast Cells # 0.0 K/mm3 08/02/18 16:22 WBC Morphology Not Reportable 08/02/18 16:22 Hypersegmented Neuts Not Reportable 08/02/18 16:22 Hyposegmented Neuts Not Reportable 08/02/18 16:22 Hypogranular Neuts Not Reportable 08/02/18 16:22 Smudge Cells Not Reportable 08/02/18 16:22 Toxic Granulation Not Reportable 08/02/18 16:22 Toxic Vacuolation Not Reportable 08/02/18 16:22 Dohle Bodies Not Reportable 08/02/18 16:22 Pelger-Huet Anomaly Not Reportable 08/02/18 16:22 Evelina Rods Not Reportable 08/02/18 16:22 Platelet Estimate Consistent w auto 08/02/18 16:22 Clumped Platelets Not Reportable 08/02/18 16:22 Plt Clumps, EDTA Not Reportable 08/02/18 16:22 Large Platelets 1+ 08/02/18 16:22 Giant Platelets Not Reportable 08/02/18 16:22 Platelet Satelliting Not Reportable 08/02/18 16:22 Plt Morphology Comment Not Reportable 08/02/18 16:22 RBC Morphology Not Reportable 08/02/18 16:22 Dimorphic RBCs Not Reportable 08/02/18 16:22 Polychromasia Not Reportable 08/02/18 16:22 Hypochromasia 1+ 08/02/18 16:22 Poikilocytosis Not Reportable 08/02/18 16:22 Anisocytosis 1+ 08/02/18 16:22 Microcytosis Not Reportable 08/02/18 16:22 Macrocytosis Not Reportable 08/02/18 16:22 Spherocytes Not Reportable 08/02/18 16:22 Pappenheimer Bodies Not Reportable 08/02/18 16:22 Sickle Cells Not Reportable 08/02/18 16:22 Target Cells Not Reportable 08/02/18 16:22 Tear Drop Cells Not Reportable 08/02/18 16:22 Ovalocytes Not Reportable 08/02/18 16:22 Helmet Cells Not Reportable 08/02/18 16:22 Eden-Speculator Bodies Not Reportable 08/02/18 16:22 [place] Rings Not Reportable 08/02/18 16:22 Kiki Cells Not Reportable 08/02/18 16:22 Bite Cells Not Reportable 08/02/18 16:22 Crenated Cell Not Reportable 08/02/18 16:22 Elliptocytes Not Reportable 08/02/18 16:22 Acanthocytes (Spur) Not Reportable 08/02/18 16:22 Rouleaux Not Reportable 08/02/18 16:22 Hemoglobin C Crystals Not Reportable 08/02/18 16:22 Schistocytes Not Reportable 08/02/18 16:22 Malaria parasites Not Reportable 08/02/18 16:22 Abraham Bodies Not Reportable 08/02/18 16:22 Hem Pathologist Commnt No 08/02/18 16:22 PT 14.4 Sec. (12.2-14.9) 08/01/18 11:30 INR 1.05 (0.87-1.13) 08/01/18 11:30 APTT 23.5 Sec. (24.2-36.6) L 08/01/18 11:30 POC ABG pH 7.403 (7.35-7.45) 08/02/18 09:07 POC ABG pCO2 43.2 (35-45) 08/02/18 09:07 POC ABG pO2 125 (80-105) H 08/02/18 09:07 POC ABG HCO3 26.9 08/02/18 09:07 POC ABG Total CO2 28 08/02/18 09:07 POC ABG O2 Sat 99 08/02/18 09:07 POC ABG Base Excess 2 08/02/18 09:07 FiO2 30 % 08/02/18 09:07 Sodium 133 mmol/L (137-145) L 08/14/18 07:02 Potassium 3.8 mmol/L (3.6-5.0) 08/14/18 07:02 Chloride 88.7 mmol/L (98-107) L 08/14/18 07:02 Carbon Dioxide 27 mmol/L (22-30) 08/14/18 07:02 Anion Gap 21 mmol/L 08/14/18 07:02 BUN 40 mg/dL (7-17) H 08/14/18 07:02 Creatinine 6.2 mg/dL (0.7-1.2) H 08/14/18 07:02 Estimated GFR 8 ml/min 08/14/18 07:02 BUN/Creatinine Ratio 6 % 08/14/18 07:02 Glucose 204 mg/dL (65-100) H 08/14/18 07:02 POC Glucose 181 (70-105) H 08/16/18 11:53 Hemoglobin A1c 5.3 % (4-6) 08/01/18 19:56 Calcium 8.9 mg/dL (8.4-10.2) 08/14/18 07:02 Magnesium 2.80 mg/dL (1.7-2.3) H 08/01/18 19:56 Total Bilirubin 0.30 mg/dL (0.1-1.2) 08/09/18 05:35 AST 18 units/L (5-40) 08/09/18 05:35 ALT 11 units/L (7-56) 08/09/18 05:35 Alkaline Phosphatase 101 units/L (35-129) 08/09/18 05:35 C-Reactive Protein 14.30 mg/dL (0.00-1.30) H 08/10/18 20:30 Total Protein 6.4 g/dL (6.3-8.2) 08/09/18 05:35 Albumin 2.0 g/dL (3.9-5) L 08/09/18 05:35 Albumin/Globulin Ratio 0.5 % 08/09/18 05:35 Prealbumin 0.277 g/L (0.200-0.400) 08/01/18 19:56 Blood Type O POSITIVE 08/13/18 07:37 Antibody Screen Negative 08/13/18 07:37 Crossmatch See Detail 08/13/18 07:37 Nutrition/Malnutrition Assess - Dietary Evaluation Nutrition/Malnutrition Findings: Nutrition Notes Start: 08/02/18 16:33 Freq: Status: Active Protocol: Document 08/11/18 10:48 SA (Rec: 08/11/18 10:55 SA [id number]) Co-Sign 08/11/18 10:48 LP Nutrition Notes Need for Assessment generated from: MD Order Initial or Follow up Reassessment Current Diagnosis CKD (stage V CKD) Diabetes Hypertension Respiratory Failure Other Pertinent Diagnosis ESRD on HD Current Diet NPO Labs/Tests Na: 133 Chl: 90.4 BUN: 57 Cr: 6.5 Glu: 184 Pertinent Medications Reviewed Height 5 ft 6 in Weight 95 kg [place] Body Weight (kg) 59.09 BMI 33.7 Weight Status Morbidly Obese Subjective/Other Information MD consult for write/manage TF . Patient not in room at time of visit. Patient has PEG. Percent of energy/protein needs met: 0%/0% Burn Absent Trauma Absent #1 Nutrition Diagnosis Inadequate oral intake Diagnosis Progress(for reassessment Continues documentation) Is patient on ventilator? No Is Patient Ambulatory and/or Out of Bed No REE-([facility]-confined to bed) 1866.432 Kcal/Kg value to use for calculation 17 Approximate Energy Requirements Using 1615 kcal/Kg Calculation Used for Recommendations [facility] Additional Notes Protein needs: 89-96g (1.2-1. 3g/kg AdjBW) AdjBW: 74kg Fluid: 1 L or per MD Nutrition Intervention Nutrition Support: Nepro at 40mL/hr with 50mL flush q4h or per MD Kcal 1,728 Protein (gm) 78 Fluid (mL) 698 Goal #1 TF to continue to meet at least 75% of energy and protein needs Anticipated Discharge Needs: Nepro at 40mL/hr with 50mL flush q4h or per MD order Follow-Up By: 08/16/18 Additional Comments F/U: TF tolerance and stable TF
[2018-08-16] MEDS: ZINC SULFATE PO SCH (12:02)
[2018-08-16] MEDS: PEPCID PO SCH (12:02)
[2018-08-16] MEDS: CORDARONE PO SCH (12:02)
[2018-08-16] MEDS: HALFPRIN EC PO SCH (12:02)
[2018-08-16] MEDS: MERREM/NS 500 MG/50 ML 500 MG/50 ML BAG IV SCH (12:04)
--- NOTE | 2018-08-16 14:12 | Progress Note ---
Assessment and Plan 1. ESRD: Continue hemodialysis three times a week, MWF schedule. 2. Thrombosed left arm AVG: S/p tunnel catheter. 3. Respiratory failure: Trached, on T-piece. 4. Anemia: S/p one unit of PRBC. Epogen with HD. 5. Hypertension: Started on Amlodipine. 6. Sepsis: Followed by ID. 7. H/o Cardiac arrest. 8. H/o CVA. 9. Anoxic encephalopathy. Subjective Date of service: 08/16/18 Principal diagnosis: Ac on Ch hypoxemic Resp failure; Diabetes type II; ESRD on dialysis (M/W/F) Interval history: Patient was seen and examined at the bedside. Objective - Vital Signs Vital signs: Vital Signs - 12hr 08/16/18 08/16/18 08/16/18 05:38 08:20 08:39 Temperature 98.9 F Pulse Rate 76 Pulse Rate [ 80 Posterior Bilateral Throughout] Respiratory 18 Rate Respiratory 18 Rate [Posterior Bilateral Throughout] Blood Pressure 156/79 Blood Pressure [Right] O2 Sat by Pulse 100 100 Oximetry 08/16/18 08/16/18 08/16/18 08:41 11:52 12:01 Temperature 98.6 F Pulse Rate 84 Pulse Rate [ 80 Posterior Bilateral Throughout] Respiratory 20 Rate Respiratory 17 Rate [Posterior Bilateral Throughout] Blood Pressure 186/80 Blood Pressure 186/80 [Right] O2 Sat by Pulse Oximetry - General Appearance General appearance: well-developed, appears stated age, other (not in distress, left IJ tunnel catheter) EENT: ATNC Neck: other (Trached, on T-piece) Respiratory: Present: Clear to Ascultation Cardiology: regular, S1S2, no murmurs Gastrointestinal: normoactive bowel sounds, no tenderness, no distended, other (PEG tube noted) Integumentary: no rash, warm and dry Neurologic: other (able to move extremities) Musculoskeletal: other (no edema) - Lab 08/16/18 07:04 08/14/18 07:02 Most recent lab results Calcium 8.9 mg/dL (8.4-10.2) 08/14/18 07:02 Magnesium 2.80 mg/dL (1.7-2.3) H 08/01/18 19:56 Medications & Allergies - Medications Allergies/Adverse Reactions: Allergies ondansetron Allergy (Verified 08/01/18 11:00) Anaphylaxis sulfamethoxazole [From Bactrim] Allergy (Verified 08/01/18 11:00) Anaphylaxis trimethoprim [From Bactrim] Allergy (Verified 08/01/18 11:00) Anaphylaxis vancomycin Allergy (Verified 08/01/18 11:00) Anaphylaxis Home Medications: Home Medications Medication Instructions Recorded Confirmed Last Taken Type ALBUTEROL NEB's [Proventil 0.083% 3 ml IH Q4HR 07/26/18 08/01/18 Unknown History NEBS] Metoprolol [Lopressor TAB] 25 mg PO BID tablet 07/29/18 08/01/18 Unknown Rx amLODIPine [Norvasc] 5 mg PO QDAY tablet 07/29/18 08/01/18 Unknown Rx Amiodarone HCl [Pacerone] 200 mg PO DAILY 08/01/18 08/01/18 Unknown History Aspirin [Adult Aspirin] 81 mg PO DAILY 08/01/18 08/01/18 Unknown History Carvedilol [Coreg] 12.5 mg PO BID 08/01/18 08/01/18 Unknown History Famotidine 20 mg PO DAILY 08/01/18 08/01/18 Unknown History Gabapentin [Gralise] 30 mg PO QHS 08/01/18 08/01/18 Unknown History Lispro Insulin [Humalog] 0 unit SQ TID 08/01/18 08/01/18 Unknown History Loperamide [Imodium] 2 mg PO Q6H 08/01/18 08/01/18 Unknown History Sevelamer Carbonate [Renvela] 800 mg PO TIDWM 08/01/18 08/01/18 Unknown History Zinc Sulfate 220 mg PO DAILY 08/01/18 08/01/18 Unknown History Acetaminophen [Acetaminophen TAB] 650 mg PO Q4H PRN #15 tablet 08/09/18 Unknown Rx Midodrine [Proamatine] 10 mg PO BID #60 tablet 08/09/18 Unknown Rx QUEtiapine [SEROquel] 25 mg PO BID@0800,1700 #60 tablet 08/09/18 Unknown Rx QUEtiapine [SEROquel] 50 mg PO QHS #30 tablet 08/09/18 Unknown Rx Simple Syrup 30 ml FEEDTUBE PRN PRN #30 08/09/18 Unknown Rx oral.liqd Sodium Bicarbonate 325 mg FEEDTUBE PRN PRN #30 tablet 08/09/18 Unknown Rx Active Medications: Generic Name Dose Route Start Last Admin Trade Name Freq PRN Reason Stop Dose Admin Acetaminophen 650 mg 08/01/18 19:44 08/13/18 12:03 Tylenol PO 650 mg Q4H PRN Administration Pain MILD(1-3)/Fever >100.5/CASAREZ Albuterol/Ipratropium 1 ampul 08/02/18 14:00 08/16/18 08:24 Duoneb *Not For Prn Use* IH 1 ampul TIDRT SERENITY Administration Amiodarone HCl 200 mg 08/01/18 22:00 08/16/18 12:02 Cordarone PO 200 mg DAILY SERENITY Administration Lipase/Protease/Amylase 1 each 08/11/18 11:20 Pancreaze 10,500 Unit FEEDTUBE PRN PRN For Clogged Feeding Tube Aspirin 81 mg 08/01/18 22:00 08/16/18 12:02 Halfprin Ec PO 81 mg DAILY SERENITY Administration Epoetin [place] 20,000 unit 08/02/18 10:41 08/15/18 22:40 Procrit SUB-Q 20,000 unit ANJANA PRN Administration hemodialysis Famotidine 20 mg 08/01/18 22:00 08/16/18 12:02 Pepcid PO 20 mg DAILY SERENITY Administration Sodium Chloride 100 mls @ 999 mls/hr 08/02/18 09:40 Nacl 0.9% IV ANJANA PRN Hypotension Meropenem 500 mg in 50 mls @ 50 mls/hr 08/14/18 17:00 08/16/18 12:04 Merrem/Ns 500 Mg/50 Ml IV 50 mls/hr Q24HR SERENITY Administration Insulin Human Lispro 0 unit 08/02/18 08:00 08/16/18 13:57 Humalog SUB-Q 2 unit Q6HR SERENITY Administration Protocol Linezolid 600 mg 08/14/18 22:00 08/16/18 12:01 Zyvox PO 600 mg Q12HR SERENITY Administration Protocol Loperamide HCl 2 mg 08/01/18 22:00 08/16/18 12:02 Imodium PO 2 mg Q6HR SERENITY Administration Metoprolol Tartrate 25 mg 08/01/18 22:00 08/16/18 12:01 Lopressor PO 25 mg BID SERENITY Administration Oxycodone/Acetaminophen 1 tab 08/10/18 23:10 08/12/18 05:44 Percocet 5/325 PO 1 tab Q6H PRN Administration Pain, Moderate (4-6) Quetiapine Fumarate 50 mg 08/05/18 22:00 08/16/18 00:20 Seroquel PO 50 mg QHS SERENITY Administration Quetiapine Fumarate 25 mg 08/08/18 08:00 08/16/18 08:48 Seroquel PO 25 mg BID@0800,1700 SERENITY Administration Sevelamer Carbonate 800 mg 08/02/18 08:00 08/16/18 12:02 Renvela PO 800 mg TIDWM SERENITY Administration Simple Syrup 15 ml 08/11/18 11:20 Simple Syrup FEEDTUBE PRN PRN Hypoglycemia Simple Syrup 30 ml 08/11/18 11:20 Simple Syrup FEEDTUBE PRN PRN Hypoglycemia Sodium Bicarbonate 325 mg 08/11/18 11:20 Sodium Bicarbonate FEEDTUBE PRN PRN For Clogged Feeding Tube Sodium Chloride 10 ml 08/01/18 22:00 08/16/18 12:03 Sodium Chloride Flush Syringe 10 Ml IV 10 ml BID SERENITY Administration Sodium Chloride 10 ml 08/01/18 19:44 Sodium Chloride Flush Syringe 10 Ml IV PRN PRN LINE FLUSH Zinc Sulfate 220 mg 08/02/18 10:00 08/16/18 12:02 Zinc Sulfate PO 220 mg DAILY SERENITY Administration
[2018-08-16] MEDS: NORVASC PO SCH (18:47)
--- NOTE | 2018-08-16 20:12 | Progress Note ---
Assessment and Plan Patient awake. Resting on trach collar, FIO2 28%. O2 saturation 100%. No acute respiratory distress. - Patient Problems (1) Acute respiratory failure with hypoxia Current Visit: Yes Status: Acute Plan to address problem: T tube and is on FIO2 28% and O2 saturation 100%.No acute respiratory distress.Awake, Not following commands Albuterol/atrovent aerosol treatments q 6 hours. Respiratory suctioning. (2) ESRD needing dialysis Current Visit: Yes Status: Chronic Plan to address problem: Management as per nephrology. (3) GERD (gastroesophageal reflux disease) Current Visit: Yes Status: Chronic Qualifiers: Esophagitis presence: with esophagitis Qualified Code(s): K21.0 - Gastro- esophageal reflux disease with esophagitis Plan to address problem: Patient is on Famotidine. (4) HTN (hypertension) Current Visit: Yes Status: Chronic Qualifiers: Hypertension type: essential hypertension Qualified Code(s): I10 - Essential (primary) hypertension Plan to address problem: Management as per primary care. (5) IDDM (insulin dependent diabetes mellitus) Current Visit: Yes Status: Chronic Plan to address problem: Management as per primary care. (6) History of CVA (cerebrovascular accident) Current Visit: No Status: Chronic Plan to address problem: Management as per primary care and neurology. (7) Pressure ulcer of sacral region, stage 3 Current Visit: Yes Status: Acute Plan to address problem: wound care. Patient is on Zyvox. Subjective Date of service: 08/16/18 Principal diagnosis: Ac on Ch hypoxemic Resp failure; Diabetes type II; ESRD on dialysis (M/W/F) Interval history: Patient awake. Resting on T tube, FIO2 28%. O2 saturation 100%. No acute respiratory distress. Objective Vital Signs - 12hr 08/16/18 08/16/18 08/16/18 08:20 08:39 08:41 Temperature Pulse Rate Pulse Rate [ 80 80 Posterior Bilateral Throughout] Respiratory Rate Respiratory 18 17 Rate [Posterior Bilateral Throughout] Blood Pressure Blood Pressure [Right] O2 Sat by Pulse 100 Oximetry 08/16/18 08/16/18 08/16/18 11:52 12:01 14:14 Temperature 98.6 F Pulse Rate 84 Pulse Rate [ 89 Posterior Bilateral Throughout] Respiratory 20 Rate Respiratory 22 Rate [Posterior Bilateral Throughout] Blood Pressure 186/80 Blood Pressure 186/80 [Right] O2 Sat by Pulse Oximetry 08/16/18 08/16/18 08/16/18 14:26 17:38 18:47 Temperature 98.2 F Pulse Rate 82 Pulse Rate [ 90 Posterior Bilateral Throughout] Respiratory 18 Rate Respiratory 18 Rate [Posterior Bilateral Throughout] Blood Pressure 171/79 171/79 Blood Pressure [Right] O2 Sat by Pulse 100 Oximetry Constitutional: no acute distress, alert, other (middle aged AAF, normocephalic with mildly increased respiratory effort on t-piece) Eyes: non-icteric ENT: oropharynx moist Neck: supple, no lymphadenopathy, no JVD, other (+ midline tracheostomy tube) Effort: mildly labored Ascultation: Bilateral: diminished breath sounds, rhonchi Percussion: Bilateral: not dull Cardiovascular: regular rate and rhythm, murmur noted (s1,S2, systolic murmur) Gastrointestinal: normoactive bowel sounds, soft, non-tender, non-distended, other (PEG in place) Integumentary: rash Extremities: no cyanosis, no edema, pulses normal, no ischemia or petechiae Neurologic: pupils equal and round, other (not obeying commands to adequately assess) Psychiatric: other (flat affect) CBC and BMP: 08/16/18 07:04 08/14/18 07:02 ABG, PT/INR, D-dimer: ABG POC ABG pH 7.403 (7.35-7.45) 08/02/18 09:07 POC ABG pCO2 43.2 (35-45) 08/02/18 09:07 POC ABG pO2 125 (80-105) H 08/02/18 09:07 POC ABG HCO3 26.9 08/02/18 09:07 POC ABG Total CO2 28 08/02/18 09:07 POC ABG O2 Sat 99 08/02/18 09:07 PT/INR, D-dimer PT 14.4 Sec. (12.2-14.9) 08/01/18 11:30 INR 1.05 (0.87-1.13) 08/01/18 11:30 Abnormal lab findings: Abnormal Labs 08/01/18 08/01/18 08/01/18 11:30 11:30 11:30 WBC 13.7 H RBC 2.81 L Hgb 8.9 L Hct 27.4 L MCV 98 H MCH MCHC RDW 16.0 H Lymph % (Auto) 10.1 L [place] % (Auto) Lymph # [place] # Seg Neutrophils % 84.3 H Seg Neuts % (Manual) Lymphocytes % (Manual) Seg Neutrophils # 11.6 H Seg Neutrophils # Man Lymphocytes # (Manual) APTT 23.5 L POC ABG pCO2 POC ABG pO2 Sodium 133 L Potassium Chloride 89.8 L BUN 78 H Creatinine 8.7 H D Glucose 177 H POC Glucose Magnesium ALT C-Reactive Protein Albumin Crossmatch 08/01/18 08/01/18 08/02/18 18:38 19:56 09:07 WBC RBC Hgb Hct MCV MCH MCHC RDW Lymph % (Auto) [place] % (Auto) Lymph # [place] # Seg Neutrophils % Seg Neuts % (Manual) Lymphocytes % (Manual) Seg Neutrophils # Seg Neutrophils # Man Lymphocytes # (Manual) APTT POC ABG pCO2 48.2 H POC ABG pO2 146 H 125 H Sodium Potassium Chloride BUN Creatinine Glucose POC Glucose Magnesium 2.80 H ALT C-Reactive Protein Albumin Crossmatch 08/02/18 08/02/18 08/02/18 16:22 16:22 17:21 WBC RBC 2.42 L Hgb 8.1 L Hct 22.8 L MCV MCH 34 H MCHC 36 H RDW 15.7 H Lymph % (Auto) [place] % (Auto) Lymph # [place] # Seg Neutrophils % Seg Neuts % (Manual) 94.0 H Lymphocytes % (Manual) 6.0 L Seg Neutrophils # Seg Neutrophils # Man 9.9 H Lymphocytes # (Manual) 0.6 L APTT POC ABG pCO2 POC ABG pO2 Sodium 134 L Potassium Chloride 90.7 L BUN 38 H Creatinine 4.8 H Glucose 175 H POC Glucose 191 H Magnesium ALT < 5 L C-Reactive Protein Albumin 2.9 L Crossmatch 08/03/18 08/03/18 08/03/18 05:19 07:43 07:43 WBC RBC 2.67 L Hgb 8.3 L Hct 24.9 L MCV MCH MCHC RDW 15.6 H Lymph % (Auto) [place] % (Auto) Lymph # [place] # Seg Neutrophils % Seg Neuts % (Manual) Lymphocytes % (Manual) Seg Neutrophils # Seg Neutrophils # Man Lymphocytes # (Manual) APTT POC ABG pCO2 POC ABG pO2 Sodium 134 L Potassium Chloride 89.7 L BUN 52 H Creatinine 5.9 H Glucose 180 H POC Glucose 212 H Magnesium ALT C-Reactive Protein Albumin Crossmatch 08/03/18 08/03/18 08/04/18 12:32 23:42 05:42 WBC RBC Hgb Hct MCV MCH MCHC RDW Lymph % (Auto) [place] % (Auto) Lymph # [place] # Seg Neutrophils % Seg Neuts % (Manual) Lymphocytes % (Manual) Seg Neutrophils # Seg Neutrophils # Man Lymphocytes # (Manual) APTT POC ABG pCO2 POC ABG pO2 Sodium Potassium Chloride BUN Creatinine Glucose POC Glucose 223 H 139 H 151 H Magnesium ALT C-Reactive Protein Albumin Crossmatch 08/04/18 08/04/18 08/04/18 12:11 17:12 20:55 WBC RBC Hgb Hct MCV MCH MCHC RDW Lymph % (Auto) [place] % (Auto) Lymph # [place] # Seg Neutrophils % Seg Neuts % (Manual) Lymphocytes % (Manual) Seg Neutrophils # Seg Neutrophils # Man Lymphocytes # (Manual) APTT POC ABG pCO2 POC ABG pO2 Sodium Potassium Chloride BUN Creatinine Glucose POC Glucose 193 H 137 H 175 H Magnesium ALT C-Reactive Protein Albumin Crossmatch 08/04/18 08/05/18 08/05/18 23:23 05:55 12:03 WBC RBC Hgb Hct MCV MCH MCHC RDW Lymph % (Auto) [place] % (Auto) Lymph # [place] # Seg Neutrophils % Seg Neuts % (Manual) Lymphocytes % (Manual) Seg Neutrophils # Seg Neutrophils # Man Lymphocytes # (Manual) APTT POC ABG pCO2 POC ABG pO2 Sodium Potassium Chloride BUN Creatinine Glucose POC Glucose 165 H 135 H 158 H Magnesium ALT C-Reactive Protein Albumin Crossmatch 08/05/18 08/06/18 08/06/18 23:42 06:05 10:25 WBC 11.8 H RBC 2.61 L Hgb 8.2 L Hct 24.9 L MCV MCH MCHC RDW 15.8 H Lymph % (Auto) [place] % (Auto) Lymph # [place] # Seg Neutrophils % Seg Neuts % (Manual) Lymphocytes % (Manual) Seg Neutrophils # Seg Neutrophils # Man Lymphocytes # (Manual) APTT POC ABG pCO2 POC ABG pO2 Sodium Potassium Chloride BUN Creatinine Glucose POC Glucose 120 H 196 H Magnesium ALT C-Reactive Protein Albumin Crossmatch 08/06/18 08/06/18 08/06/18 10:25 12:31 17:26 WBC RBC Hgb Hct MCV MCH MCHC RDW Lymph % (Auto) [place] % (Auto) Lymph # [place] # Seg Neutrophils % Seg Neuts % (Manual) Lymphocytes % (Manual) Seg Neutrophils # Seg Neutrophils # Man Lymphocytes # (Manual) APTT POC ABG pCO2 POC ABG pO2 Sodium 136 L Potassium 3.3 L D Chloride 93.2 L BUN 32 H Creatinine 4.5 H Glucose 134 H POC Glucose 184 H 174 H Magnesium ALT C-Reactive Protein Albumin Crossmatch 08/07/18 08/07/18 08/07/18 00:32 05:47 11:53 WBC RBC Hgb Hct MCV MCH MCHC RDW Lymph % (Auto) [place] % (Auto) Lymph # [place] # Seg Neutrophils % Seg Neuts % (Manual) Lymphocytes % (Manual) Seg Neutrophils # Seg Neutrophils # Man Lymphocytes # (Manual) APTT POC ABG pCO2 POC ABG pO2 Sodium Potassium Chloride BUN Creatinine Glucose POC Glucose 190 H 203 H 161 H Magnesium ALT C-Reactive Protein Albumin Crossmatch 08/07/18 08/08/18 08/08/18 16:39 00:49 06:41 WBC RBC Hgb Hct MCV MCH MCHC RDW Lymph % (Auto) [place] % (Auto) Lymph # [place] # Seg Neutrophils % Seg Neuts % (Manual) Lymphocytes % (Manual) Seg Neutrophils # Seg Neutrophils # Man Lymphocytes # (Manual) APTT POC ABG pCO2 POC ABG pO2 Sodium Potassium Chloride BUN Creatinine Glucose POC Glucose 217 H 186 H 167 H Magnesium ALT C-Reactive Protein Albumin Crossmatch 08/08/18 08/08/18 08/09/18 13:09 16:49 00:02 WBC RBC Hgb Hct MCV MCH MCHC RDW Lymph % (Auto) [place] % (Auto) Lymph # [place] # Seg Neutrophils % Seg Neuts % (Manual) Lymphocytes % (Manual) Seg Neutrophils # Seg Neutrophils # Man Lymphocytes # (Manual) APTT POC ABG pCO2 POC ABG pO2 Sodium Potassium Chloride BUN Creatinine Glucose POC Glucose 224 H 212 H 188 H Magnesium ALT C-Reactive Protein Albumin Crossmatch 08/09/18 08/09/18 08/09/18 05:35 05:35 05:47 WBC RBC 2.93 L Hgb 9.3 L Hct 27.1 L MCV MCH MCHC RDW 15.7 H Lymph % (Auto) 10.1 L [place] % (Auto) Lymph # 1.0 L [place] # Seg Neutrophils % 83.6 H Seg Neuts % (Manual) Lymphocytes % (Manual) Seg Neutrophils # 8.5 H Seg Neutrophils # Man Lymphocytes # (Manual) APTT POC ABG pCO2 POC ABG pO2 Sodium 135 L Potassium 3.3 L Chloride 93.1 L BUN 39 H Creatinine 5.3 H Glucose 172 H POC Glucose 207 H Magnesium ALT C-Reactive Protein Albumin 2.0 L Crossmatch 08/09/18 08/09/18 08/09/18 11:56 18:30 20:23 WBC RBC Hgb Hct MCV MCH MCHC RDW Lymph % (Auto) [place] % (Auto) Lymph # [place] # Seg Neutrophils % Seg Neuts % (Manual) Lymphocytes % (Manual) Seg Neutrophils # Seg Neutrophils # Man Lymphocytes # (Manual) APTT POC ABG pCO2 POC ABG pO2 Sodium Potassium Chloride BUN Creatinine Glucose POC Glucose 272 H 148 H 197 H Magnesium ALT C-Reactive Protein Albumin Crossmatch 08/10/18 08/10/18 08/10/18 01:09 05:12 05:12 WBC RBC 2.32 L Hgb 7.2 L Hct 21.6 L MCV MCH MCHC RDW 16.1 H Lymph % (Auto) [place] % (Auto) Lymph # [place] # Seg Neutrophils % Seg Neuts % (Manual) Lymphocytes % (Manual) Seg Neutrophils # Seg Neutrophils # Man Lymphocytes # (Manual) APTT POC ABG pCO2 POC ABG pO2 Sodium 133 L Potassium Chloride 90.4 L BUN 57 H Creatinine 6.5 H Glucose 184 H POC Glucose 213 H Magnesium ALT C-Reactive Protein Albumin Crossmatch 08/10/18 08/10/18 08/11/18 06:09 20:30 00:51 WBC RBC Hgb Hct MCV MCH MCHC RDW Lymph % (Auto) [place] % (Auto) Lymph # [place] # Seg Neutrophils % Seg Neuts % (Manual) Lymphocytes % (Manual) Seg Neutrophils # Seg Neutrophils # Man Lymphocytes # (Manual) APTT POC ABG pCO2 POC ABG pO2 Sodium Potassium Chloride BUN Creatinine Glucose POC Glucose 185 H 181 H Magnesium ALT C-Reactive Protein 14.30 H Albumin Crossmatch 08/11/18 08/11/18 08/11/18 05:35 10:22 10:22 WBC RBC Hgb 6.9 L Hct 20.7 L MCV MCH MCHC RDW Lymph % (Auto) [place] % (Auto) Lymph # [place] # Seg Neutrophils % Seg Neuts % (Manual) Lymphocytes % (Manual) Seg Neutrophils # Seg Neutrophils # Man Lymphocytes # (Manual) APTT POC ABG pCO2 POC ABG pO2 Sodium 132 L Potassium Chloride 89.8 L BUN 61 H Creatinine 7.1 H Glucose 187 H POC Glucose 185 H Magnesium ALT C-Reactive Protein Albumin Crossmatch 08/11/18 08/11/18 08/12/18 11:01 17:10 01:35 WBC RBC Hgb Hct MCV MCH MCHC RDW Lymph % (Auto) [place] % (Auto) Lymph # [place] # Seg Neutrophils % Seg Neuts % (Manual) Lymphocytes % (Manual) Seg Neutrophils # Seg Neutrophils # Man Lymphocytes # (Manual) APTT POC ABG pCO2 POC ABG pO2 Sodium Potassium Chloride BUN Creatinine Glucose POC Glucose 197 H 170 H 214 H Magnesium ALT C-Reactive Protein Albumin Crossmatch 08/12/18 08/12/18 08/12/18 05:02 05:09 13:51 WBC RBC 2.20 L Hgb 6.8 L Hct 20.7 L MCV MCH MCHC RDW 16.7 H Lymph % (Auto) 12.8 L [place] % (Auto) 8.8 H Lymph # [place] # 0.9 H Seg Neutrophils % 74.9 H Seg Neuts % (Manual) Lymphocytes % (Manual) Seg Neutrophils # Seg Neutrophils # Man Lymphocytes # (Manual) APTT POC ABG pCO2 POC ABG pO2 Sodium Potassium Chloride BUN Creatinine Glucose POC Glucose 187 H 221 H Magnesium ALT C-Reactive Protein Albumin Crossmatch 08/12/18 08/12/18 08/13/18 16:42 23:33 05:39 WBC RBC Hgb 6.3 L Hct 19.3 L* MCV MCH MCHC RDW Lymph % (Auto) [place] % (Auto) Lymph # [place] # Seg Neutrophils % Seg Neuts % (Manual) Lymphocytes % (Manual) Seg Neutrophils # Seg Neutrophils # Man Lymphocytes # (Manual) APTT POC ABG pCO2 POC ABG pO2 Sodium Potassium Chloride BUN Creatinine Glucose POC Glucose 187 H 236 H Magnesium ALT C-Reactive Protein Albumin Crossmatch 08/13/18 08/13/18 08/13/18 06:47 07:37 11:45 WBC RBC Hgb Hct MCV MCH MCHC RDW Lymph % (Auto) [place] % (Auto) Lymph # [place] # Seg Neutrophils % Seg Neuts % (Manual) Lymphocytes % (Manual) Seg Neutrophils # Seg Neutrophils # Man Lymphocytes # (Manual) APTT POC ABG pCO2 POC ABG pO2 Sodium Potassium Chloride BUN Creatinine Glucose POC Glucose 267 H 255 H Magnesium ALT C-Reactive Protein Albumin Crossmatch See Detail 08/13/18 08/13/18 08/14/18 16:24 23:10 05:13 WBC RBC Hgb Hct MCV MCH MCHC RDW Lymph % (Auto) [place] % (Auto) Lymph # [place] # Seg Neutrophils % Seg Neuts % (Manual) Lymphocytes % (Manual) Seg Neutrophils # Seg Neutrophils # Man Lymphocytes # (Manual) APTT POC ABG pCO2 POC ABG pO2 Sodium Potassium Chloride BUN Creatinine Glucose POC Glucose 150 H 194 H 138 H Magnesium ALT C-Reactive Protein Albumin Crossmatch 08/14/18 08/14/18 08/14/18 07:02 07:02 11:47 WBC 16.0 H RBC 2.55 L Hgb 7.6 L Hct 23.5 L MCV MCH MCHC RDW 17.0 H Lymph % (Auto) [place] % (Auto) Lymph # [place] # Seg Neutrophils % Seg Neuts % (Manual) Lymphocytes % (Manual) Seg Neutrophils # Seg Neutrophils # Man Lymphocytes # (Manual) APTT POC ABG pCO2 POC ABG pO2 Sodium 133 L Potassium Chloride 88.7 L BUN 40 H Creatinine 6.2 H Glucose 204 H POC Glucose 224 H Magnesium ALT C-Reactive Protein Albumin Crossmatch 08/14/18 08/15/18 08/15/18 17:13 00:00 05:32 WBC RBC Hgb Hct MCV MCH MCHC RDW Lymph % (Auto) [place] % (Auto) Lymph # [place] # Seg Neutrophils % Seg Neuts % (Manual) Lymphocytes % (Manual) Seg Neutrophils # Seg Neutrophils # Man Lymphocytes # (Manual) APTT POC ABG pCO2 POC ABG pO2 Sodium Potassium Chloride BUN Creatinine Glucose POC Glucose 152 H 134 H 161 H Magnesium ALT C-Reactive Protein Albumin Crossmatch 08/15/18 08/15/18 08/15/18 06:55 12:23 17:10 WBC RBC Hgb 8.1 L Hct 23.6 L MCV MCH MCHC RDW Lymph % (Auto) [place] % (Auto) Lymph # [place] # Seg Neutrophils % Seg Neuts % (Manual) Lymphocytes % (Manual) Seg Neutrophils # Seg Neutrophils # Man Lymphocytes # (Manual) APTT POC ABG pCO2 POC ABG pO2 Sodium Potassium Chloride BUN Creatinine Glucose POC Glucose 172 H 151 H Magnesium ALT C-Reactive Protein Albumin Crossmatch 08/16/18 08/16/18 08/16/18 00:21 06:39 07:04 WBC 13.4 H RBC 2.82 L Hgb 8.5 L Hct 25.7 L MCV MCH MCHC RDW 16.3 H Lymph % (Auto) 12.1 L [place] % (Auto) Lymph # [place] # 0.9 H Seg Neutrophils % 79.4 H Seg Neuts % (Manual) Lymphocytes % (Manual) Seg Neutrophils # 10.6 H Seg Neutrophils # Man Lymphocytes # (Manual) APTT POC ABG pCO2 POC ABG pO2 Sodium Potassium Chloride BUN Creatinine Glucose POC Glucose 148 H 147 H Magnesium ALT C-Reactive Protein Albumin Crossmatch 08/16/18 08/16/18 11:53 16:29 WBC RBC Hgb Hct MCV MCH MCHC RDW Lymph % (Auto) [place] % (Auto) Lymph # [place] # Seg Neutrophils % Seg Neuts % (Manual) Lymphocytes % (Manual) Seg Neutrophils # Seg Neutrophils # Man Lymphocytes # (Manual) APTT POC ABG pCO2 POC ABG pO2 Sodium Potassium Chloride BUN Creatinine Glucose POC Glucose 181 H 121 H Magnesium ALT C-Reactive Protein Albumin Crossmatch Allied health notes reviewed: nursing
[2018-08-17] MEDS: HumaLOG SUB-Q SCH ×4 (00:38→18:36)
[2018-08-17] MEDS: IMODIUM PO SCH ×3 (06:00→18:59)
[2018-08-17] MEDS: DUONEB *Not for PRN Use IH SCH ×3 (08:27→21:47)
[2018-08-17] MEDS ORDERED: PROCRIT ONE (09:34)
[2018-08-17] MEDS: RENVELA PO SCH ×3 (09:48→18:58)
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
[2018-08-17 10:35] LABS: Basophils # (Auto) 0.1 K/mm3 (0.0-0.1); Basophils % (Auto) 0.5 % (0.0-1.8); Eosinophils # (Auto) 0.1 K/mm3 (0.0-0.4); Hematocrit 22.9 % (30.3-42.9); Hemoglobin 7.3 gm/dl (10.1-14.3); Lymphocytes # (Auto) 1.1 K/mm3 (1.2-5.4); Lymphocytes % (Auto) 8.9 % (13.4-35.0); Mean Corpuscular HGB Conc 32 % (30-34); Mean Corpuscular Volume 92 fl (79-97); Monocytes # (Auto) 0.6 K/mm3 (0.0-0.8); Monocytes % (Auto) 5.1 % (0.0-7.3); Platelet Count 355 K/mm3 (140-440); Red Cell Distribution Width 16.4 % (13.2-15.2)
--- NOTE | 2018-08-17 10:41 | Progress Note ---
Assessment and Plan 1. ESRD: Continue hemodialysis three times a week, MWF schedule. 2. Thrombosed left arm AVG: S/p tunnel catheter. 3. Respiratory failure: Trached, on T-piece. Followed by Pulmonary. 4. Anemia: S/p one unit of PRBC. Epogen with HD. 5. Hypertension: On Amlodipine. 6. Sepsis: Followed by ID. 7. H/o Cardiac arrest. 8. H/o CVA. 9. Anoxic encephalopathy. Subjective Date of service: 08/17/18 Principal diagnosis: Ac on Ch hypoxemic Resp failure; Diabetes type II; ESRD on dialysis (M/W/F) Interval history: Patient was seen and examined at the bedside while on HD. Objective - Vital Signs Vital signs: Vital Signs - 12hr 08/16/18 08/16/18 08/16/18 22:50 22:56 22:57 Temperature Pulse Rate Pulse Rate [ 76 Posterior Bilateral Throughout] Respiratory Rate Respiratory 18 Rate [Posterior Bilateral Throughout] Blood Pressure O2 Sat by Pulse 100 Oximetry O2 Sat by Pulse 100 Oximetry [ Assessment] 08/16/18 08/17/18 08/17/18 23:00 00:17 05:39 Temperature 98.8 F 98.1 F Pulse Rate 82 79 Pulse Rate [ 78 Posterior Bilateral Throughout] Respiratory 18 18 Rate Respiratory 18 Rate [Posterior Bilateral Throughout] Blood Pressure 160/60 149/68 O2 Sat by Pulse 99 100 Oximetry O2 Sat by Pulse Oximetry [ Assessment] 08/17/18 08/17/18 08/17/18 08:28 08:35 08:38 Temperature Pulse Rate Pulse Rate [ 90 92 H Posterior Bilateral Throughout] Respiratory Rate Respiratory 18 18 Rate [Posterior Bilateral Throughout] Blood Pressure O2 Sat by Pulse 100 Oximetry O2 Sat by Pulse 100 Oximetry [ Assessment] - General Appearance General appearance: well-developed, appears stated age, other (not in distress, left IJ tunnel catheter) EENT: ATNC Neck: other (Trached, on T-piece) Respiratory: Present: Clear to Ascultation Cardiology: regular, S1S2, no murmurs Gastrointestinal: normoactive bowel sounds, no tenderness, no distended, other (PEG tube noted) Integumentary: no rash, warm and dry Neurologic: other (able to move extremities) Musculoskeletal: other (no edema) - Lab 08/17/18 09:56 08/17/18 10:35 Most recent lab results Calcium 8.9 mg/dL (8.4-10.2) 08/14/18 07:02 Magnesium 2.80 mg/dL (1.7-2.3) H 08/01/18 19:56 Medications & Allergies - Medications Allergies/Adverse Reactions: Allergies ondansetron Allergy (Verified 08/01/18 11:00) Anaphylaxis sulfamethoxazole [From Bactrim] Allergy (Verified 08/01/18 11:00) Anaphylaxis trimethoprim [From Bactrim] Allergy (Verified 08/01/18 11:00) Anaphylaxis vancomycin Allergy (Verified 08/01/18 11:00) Anaphylaxis Home Medications: Home Medications Medication Instructions Recorded Confirmed Last Taken Type ALBUTEROL NEB's [Proventil 0.083% 3 ml IH Q4HR 07/26/18 08/01/18 Unknown History NEBS] Metoprolol [Lopressor TAB] 25 mg PO BID tablet 07/29/18 08/01/18 Unknown Rx amLODIPine [Norvasc] 5 mg PO QDAY tablet 07/29/18 08/01/18 Unknown Rx Amiodarone HCl [Pacerone] 200 mg PO DAILY 08/01/18 08/01/18 Unknown History Aspirin [Adult Aspirin] 81 mg PO DAILY 08/01/18 08/01/18 Unknown History Carvedilol [Coreg] 12.5 mg PO BID 08/01/18 08/01/18 Unknown History Famotidine 20 mg PO DAILY 08/01/18 08/01/18 Unknown History Gabapentin [Gralise] 30 mg PO QHS 08/01/18 08/01/18 Unknown History Lispro Insulin [Humalog] 0 unit SQ TID 08/01/18 08/01/18 Unknown History Loperamide [Imodium] 2 mg PO Q6H 08/01/18 08/01/18 Unknown History Sevelamer Carbonate [Renvela] 800 mg PO TIDWM 08/01/18 08/01/18 Unknown History Zinc Sulfate 220 mg PO DAILY 08/01/18 08/01/18 Unknown History Acetaminophen [Acetaminophen TAB] 650 mg PO Q4H PRN #15 tablet 08/09/18 Unknown Rx Midodrine [Proamatine] 10 mg PO BID #60 tablet 08/09/18 Unknown Rx QUEtiapine [SEROquel] 25 mg PO BID@0800,1700 #60 tablet 08/09/18 Unknown Rx QUEtiapine [SEROquel] 50 mg PO QHS #30 tablet 08/09/18 Unknown Rx Simple Syrup 30 ml FEEDTUBE PRN PRN #30 08/09/18 Unknown Rx oral.liqd Sodium Bicarbonate 325 mg FEEDTUBE PRN PRN #30 tablet 08/09/18 Unknown Rx Active Medications: Generic Name Dose Route Start Last Admin Trade Name Freq PRN Reason Stop Dose Admin Acetaminophen 650 mg 08/01/18 19:44 08/13/18 12:03 Tylenol PO 650 mg Q4H PRN Administration Pain MILD(1-3)/Fever >100.5/CASAREZ Albuterol/Ipratropium 1 ampul 08/02/18 14:00 08/17/18 08:27 Duoneb *Not For Prn Use* IH 1 ampul TIDRT SERENITY Administration Amiodarone HCl 200 mg 08/01/18 22:00 08/16/18 12:02 Cordarone PO 200 mg DAILY SERENITY Administration Amlodipine Besylate 10 mg 08/16/18 15:00 08/16/18 18:47 Norvasc PO 10 mg QDAY SERENITY Administration Lipase/Protease/Amylase 1 each 08/11/18 11:20 Pancreaze 10,500 Unit FEEDTUBE PRN PRN For Clogged Feeding Tube Aspirin 81 mg 08/01/18 22:00 08/16/18 12:02 Halfprin Ec PO 81 mg DAILY SERENITY Administration Epoetin Bek[place] 20,000 unit 08/02/18 10:41 08/15/18 22:40 Procrit SUB-Q 20,000 unit ANJANA PRN Administration hemodialysis Famotidine 20 mg 08/01/18 22:00 08/16/18 12:02 Pepcid PO 20 mg DAILY SERENITY Administration Sodium Chloride 100 mls @ 999 mls/hr 08/02/18 09:40 Nacl 0.9% IV ANJANA PRN Hypotension Meropenem 500 mg in 50 mls @ 50 mls/hr 08/14/18 17:00 08/16/18 12:04 Merrem/Ns 500 Mg/50 Ml IV 50 mls/hr Q24HR SERENITY Administration Insulin Human Lispro 0 unit 08/02/18 08:00 08/17/18 06:00 Humalog SUB-Q Not Given Q6HR [facility] Protocol Linezolid 600 mg 08/14/18 22:00 08/16/18 23:27 Zyvox PO 600 mg Q12HR SERENITY Administration Protocol Loperamide HCl 2 mg 08/01/18 22:00 08/17/18 06:00 Imodium PO Not Given Q6HR SERENITY Metoprolol Tartrate 25 mg 08/01/18 22:00 08/16/18 21:30 Lopressor PO 25 mg BID SERENITY Administration Oxycodone/Acetaminophen 1 tab 08/10/18 23:10 08/12/18 05:44 Percocet 5/325 PO 1 tab Q6H PRN Administration Pain, Moderate (4-6) Quetiapine Fumarate 50 mg 08/05/18 22:00 08/16/18 21:30 Seroquel PO 50 mg QHS SERENITY Administration Quetiapine Fumarate 25 mg 08/08/18 08:00 08/16/18 18:47 Seroquel PO 25 mg BID@0800,1700 SERENITY Administration Sevelamer Carbonate 800 mg 08/02/18 08:00 08/17/18 09:48 Renvela PO Not Given TIDWM SERENITY Simple Syrup 15 ml 08/11/18 11:20 Simple Syrup FEEDTUBE PRN PRN Hypoglycemia Simple Syrup 30 ml 08/11/18 11:20 Simple Syrup FEEDTUBE PRN PRN Hypoglycemia Sodium Bicarbonate 325 mg 08/11/18 11:20 Sodium Bicarbonate FEEDTUBE PRN PRN For Clogged Feeding Tube Sodium Chloride 10 ml 08/01/18 22:00 08/16/18 21:31 Sodium Chloride Flush Syringe 10 Ml IV 10 ml BID SERENITY Administration Sodium Chloride 10 ml 08/01/18 19:44 Sodium Chloride Flush Syringe 10 Ml IV PRN PRN LINE FLUSH Zinc Sulfate 220 mg 08/02/18 10:00 08/16/18 12:02 Zinc Sulfate PO 220 mg DAILY SERENITY Administration
--- NOTE | 2018-08-17 11:39 | Event Note ---
Date: 08/17/18 Patient currently in dialysis. Due to active dialysis, procedure will have to be delayed until tomorrow. Resume diet, npo after MN except meds with sips of water.
--- NOTE | 2018-08-17 12:03 | Progress Note ---
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 Patient was recently discharged from this facility on Jul 29 after 11 day stay for multiple problems including Sepsis, aspiration pneumonia, Encephalopathy and Resp failure, ESRD. Patient was sent from [facility] again on 08/01/18 for Low O2 sats which Improved to 100% after proper suctioning. Daughter felt that her mother is not being suctioned properly, requested placement to different facility, but no other acceptance. /HD access malfunction, thrombosed s/p thromboectomy: placement of perm-a-cath to left CW /Acute on chronic respiratory failure with hypoxia, Sec to improper or delayed suctioning at [facility], Daughter wants a different SNF, Patient has been optimized to a large extent and discharged on Jul 29,breathing treatments, t-tube suction /Aspiration Pneumonitis with Sepsis, poa: continue abx, ID is following /Sepsis poa, GPC bacteremia +/- infected stage IV sacral decubitus +/- HAP: on Abx, ID managing /HAP; Sputum 08/01/2018 Pseudomonas sens to zosyn. ID following, CXR initial 08/01 neg. Repeat CXR 08/09 patchy bibasilar infiltrates. Patient started on zyvox and zosyn. /ESRD needing dialysis, continue HD per renal, Nephrology consulted /IDDM (insulin dependent diabetes mellitus): continue sliding scale coverage with T-feeding diet /HTN (hypertension), now hypotensive, give bolus, continue antihypertensives /GERD (gastroesophageal reflux disease), Cont PPI's /Large sacral decubitus with wound VAC, poa. She is known to have stage IV sacral decubitus since first admission treated medically: s/p Debridement of necrotic SQ tissue, fascia and muscle from stage 4 sacral pressure ulcer 08/11/18. ID ordered CT abd/pelvis which showed no abscess/osteomyelitis. /DVT prophylaxis, placed on heparin==>stopped due to the Anemia /Acute on chronic anemia of chronic ESRD: transfuse 1 units of prbc on 08/13/18 /MRSA skin infection now growing on buttock culture on Zyvox, contact isolation applied Disposition: continue inpatient, d/c back to [facility]-->awaiting on cultures to finalize per ID, so patient lost her bed at [facility] and need to get new authorization ID Recommendations: - continue PO Zyvox 600mg po bid - continue Meropenem 500mg IV every 24 hours - contact isolation - will ask if patient needs diverting ostomy. Currently she has a rectal tube. --upon discharge will do meropenem 500mg every 24 hours and Zyvox 600mg po bid for 21 days ending 09-04-18 -Interventional radiology consult placed for PICC line placement, IV team was unable to place order placed with case management Continue to monitor WBC, HGB and Platelets 08/16/18: Waiting for IR to place PICC line, then back to [facility] 08/17/18: hemodialysis today and IR for Picc line then back to [facility]. History Interval history: Patient was seen and examined. Follow-up on current diagnosis of Aspiration Pneumonia. Overnight uneventful. Patient is nonverbal. Imaging, nursing note, chart, labs and old chart reviewed. Discussed with patient. Hospitalist Physical - Physical exam Narrative exam: Gen: chronic disability, ill appearing, NAD, Awake, HEENT: NCAT, trach in place Neck: supple, no adenopathy, no thyromegaly, no JVD CVS/Heart: RRR, normal S1S2, pulses present bilaterally Chest/Lungs: CTA B, Symmetrical chest expansion, good air entry bilaterally GI/Abdomen: soft, NTND, PEG in place, good bowel sounds, no guarding or rebound /Bladder: no suprapubic tenderness, no CVA or paraspinal tenderness Extermity/Skin: no c/c/e, no obvious rash MSK: strophic contracted legs Neuro: CN 2-12 grossly intact, no new focal deficits, doesn't follow commands Psych: calm - Constitutional Vitals: Temp Pulse Resp BP Pulse Ox 98.4 F 87 18 110/47 100 08/17/18 10:00 08/17/18 11:45 08/17/18 10:00 08/17/18 11:45 08/17/18 08:38 General appearance: Present: well-nourished Results - Labs CBC & Chem 7: 08/17/18 09:56 08/17/18 10:35 Labs: Laboratory Last Values WBC 12.7 K/mm3 (4.5-11.0) H 08/17/18 09:56 RBC 2.50 M/mm3 (3.65-5.03) L 08/17/18 09:56 Hgb 7.3 gm/dl (10.1-14.3) L 08/17/18 09:56 Hct 22.9 % (30.3-42.9) L 08/17/18 09:56 MCV 92 fl (79-97) 08/17/18 09:56 MCH 29 pg (28-32) 08/17/18 09:56 MCHC 32 % (30-34) 08/17/18 09:56 RDW 16.4 % (13.2-15.2) H 08/17/18 09:56 Plt Count 355 K/mm3 (140-440) 08/17/18 09:56 Lymph % (Auto) 8.9 % (13.4-35.0) L 08/17/18 09:56 Power % (Auto) 5.1 % (0.0-7.3) 08/17/18 09:56 Eos % (Auto) 1.0 % (0.0-4.3) 08/17/18 09:56 Baso % (Auto) 0.5 % (0.0-1.8) 08/17/18 09:56 Lymph # 1.1 K/mm3 (1.2-5.4) L 08/17/18 09:56 Power # 0.6 K/mm3 (0.0-0.8) 08/17/18 09:56 Eos # 0.1 K/mm3 (0.0-0.4) 08/17/18 09:56 Baso # 0.1 K/mm3 (0.0-0.1) 08/17/18 09:56 Add Manual Diff Complete 08/02/18 16:22 Total Counted 100 08/02/18 16:22 Seg Neutrophils % 84.5 % (40.0-70.0) H 08/17/18 09:56 Seg Neuts % (Manual) 94.0 % (40.0-70.0) H 08/02/18 16:22 Band Neutrophils % 0 % 08/02/18 16:22 Lymphocytes % (Manual) 6.0 % (13.4-35.0) L 08/02/18 16:22 Reactive Lymphs % (Man) 0 % 08/02/18 16:22 Monocytes % (Manual) 0 % (0.0-7.3) 08/02/18 16:22 Eosinophils % (Manual) 0 % (0.0-4.3) 08/02/18 16:22 Basophils % (Manual) 0 % (0.0-1.8) 08/02/18 16:22 Metamyelocytes % 0 % 08/02/18 16:22 Myelocytes % 0 % 08/02/18 16:22 Promyelocytes % 0 % 08/02/18 16:22 Blast Cells % 0 % 08/02/18 16:22 Nucleated RBC % Not Reportable 08/02/18 16:22 Seg Neutrophils # 10.7 K/mm3 (1.8-7.7) H 08/17/18 09:56 Seg Neutrophils # Man 9.9 K/mm3 (1.8-7.7) H 08/02/18 16:22 Band Neutrophils # 0.0 K/mm3 08/02/18 16:22 Lymphocytes # (Manual) 0.6 K/mm3 (1.2-5.4) L 08/02/18 16:22 Abs React Lymphs (Man) 0.0 K/mm3 08/02/18 16:22 Monocytes # (Manual) 0.0 K/mm3 (0.0-0.8) 08/02/18 16:22 Eosinophils # (Manual) 0.0 K/mm3 (0.0-0.4) 08/02/18 16:22 Basophils # (Manual) 0.0 K/mm3 (0.0-0.1) 08/02/18 16:22 Metamyelocytes # 0.0 K/mm3 08/02/18 16:22 Myelocytes # 0.0 K/mm3 08/02/18 16:22 Promyelocytes # 0.0 K/mm3 08/02/18 16:22 Blast Cells # 0.0 K/mm3 08/02/18 16:22 WBC Morphology Not Reportable 08/02/18 16:22 Hypersegmented Neuts Not Reportable 08/02/18 16:22 Hyposegmented Neuts Not Reportable 08/02/18 16:22 Hypogranular Neuts Not Reportable 08/02/18 16:22 Smudge Cells Not Reportable 08/02/18 16:22 Toxic Granulation Not Reportable 08/02/18 16:22 Toxic Vacuolation Not Reportable 08/02/18 16:22 Dohle Bodies Not Reportable 08/02/18 16:22 Pelger-Huet Anomaly Not Reportable 08/02/18 16:22 Evelina Rods Not Reportable 08/02/18 16:22 Platelet Estimate Consistent w auto 08/02/18 16:22 Clumped Platelets Not Reportable 08/02/18 16:22 Plt Clumps, EDTA Not Reportable 08/02/18 16:22 Large Platelets 1+ 08/02/18 16:22 Giant Platelets Not Reportable 08/02/18 16:22 Platelet Satelliting Not Reportable 08/02/18 16:22 Plt Morphology Comment Not Reportable 08/02/18 16:22 RBC Morphology Not Reportable 08/02/18 16:22 Dimorphic RBCs Not Reportable 08/02/18 16:22 Polychromasia Not Reportable 08/02/18 16:22 Hypochromasia 1+ 08/02/18 16:22 Poikilocytosis Not Reportable 08/02/18 16:22 Anisocytosis 1+ 08/02/18 16:22 Microcytosis Not Reportable 08/02/18 16:22 Macrocytosis Not Reportable 08/02/18 16:22 Spherocytes Not Reportable 08/02/18 16:22 Pappenheimer Bodies Not Reportable 08/02/18 16:22 Sickle Cells Not Reportable 08/02/18 16:22 Target Cells Not Reportable 08/02/18 16:22 Tear Drop Cells Not Reportable 08/02/18 16:22 Ovalocytes Not Reportable 08/02/18 16:22 Helmet Cells Not Reportable 08/02/18 16:22 [place] Bodies Not Reportable 08/02/18 16:22 [place] Rings Not Reportable 08/02/18 16:22 [place] Cells Not Reportable 08/02/18 16:22 Bite Cells Not Reportable 08/02/18 16:22 Crenated Cell Not Reportable 08/02/18 16:22 Elliptocytes Not Reportable 08/02/18 16:22 Acanthocytes (Spur) Not Reportable 08/02/18 16:22 Rouleaux Not Reportable 08/02/18 16:22 Hemoglobin C Crystals Not Reportable 08/02/18 16:22 Schistocytes Not Reportable 08/02/18 16:22 Malaria parasites Not Reportable 08/02/18 16:22 Abraham Bodies Not Reportable 08/02/18 16:22 Hem Pathologist Commnt No 08/02/18 16:22 PT 14.4 Sec. (12.2-14.9) 08/01/18 11:30 INR 1.05 (0.87-1.13) 08/01/18 11:30 APTT 23.5 Sec. (24.2-36.6) L 08/01/18 11:30 POC ABG pH 7.403 (7.35-7.45) 08/02/18 09:07 POC ABG pCO2 43.2 (35-45) 08/02/18 09:07 POC ABG pO2 125 (80-105) H 08/02/18 09:07 POC ABG HCO3 26.9 08/02/18 09:07 POC ABG Total CO2 28 08/02/18 09:07 POC ABG O2 Sat 99 08/02/18 09:07 POC ABG Base Excess 2 08/02/18 09:07 FiO2 30 % 08/02/18 09:07 Sodium 136 mmol/L (137-145) L 08/17/18 10:35 Potassium 3.4 mmol/L (3.6-5.0) L 08/17/18 10:35 Chloride 93.2 mmol/L (98-107) L 08/17/18 10:35 Carbon Dioxide 27 mmol/L (22-30) 08/17/18 10:35 Anion Gap 19 mmol/L 08/17/18 10:35 BUN 35 mg/dL (7-17) H 08/17/18 10:35 Creatinine 6.1 mg/dL (0.7-1.2) H 08/17/18 10:35 Estimated GFR 9 ml/min 08/17/18 10:35 BUN/Creatinine Ratio 6 % 08/17/18 10:35 Glucose 143 mg/dL (65-100) H 08/17/18 10:35 POC Glucose 142 (70-105) H 08/17/18 06:51 Hemoglobin A1c 5.3 % (4-6) 08/01/18 19:56 Calcium 9.0 mg/dL (8.4-10.2) 08/17/18 10:35 Magnesium 2.80 mg/dL (1.7-2.3) H 08/01/18 19:56 Total Bilirubin 0.30 mg/dL (0.1-1.2) 08/09/18 05:35 AST 18 units/L (5-40) 08/09/18 05:35 ALT 11 units/L (7-56) 08/09/18 05:35 Alkaline Phosphatase 101 units/L (35-129) 08/09/18 05:35 C-Reactive Protein 14.30 mg/dL (0.00-1.30) H 08/10/18 20:30 Total Protein 6.4 g/dL (6.3-8.2) 08/09/18 05:35 Albumin 2.0 g/dL (3.9-5) L 08/09/18 05:35 Albumin/Globulin Ratio 0.5 % 08/09/18 05:35 Prealbumin 0.277 g/L (0.200-0.400) 08/01/18 19:56 Blood Type O POSITIVE 08/13/18 07:37 Antibody Screen Negative 08/13/18 07:37 Crossmatch See Detail 08/13/18 07:37 Nutrition/Malnutrition Assess - Dietary Evaluation Nutrition/Malnutrition Findings: Nutrition Notes Start: 08/02/18 16:33 Freq: Status: Active Protocol: Document 08/16/18 14:37 RM (Rec: 08/16/18 14:41 RM [id number]) Nutrition Notes Initial or Follow up Reassessment Current Diagnosis CKD (stage V CKD),Diabetes, Hypertension,Respiratory Failure Other Pertinent Diagnosis ESRD on HD Current Diet Nepro at 40 ml/hr Labs/Tests No recent labs Pertinent Medications Reviewed Height 5 ft 6 in Weight 88.3 kg [place] Body Weight (kg) 59.09 BMI 31.4 Subjective/Other Information Observed Nepro infusing at 40 ml/hr. Per nurse pt is tolerating TF. Percent of energy/protein needs met: 100%/88% Burn Absent Trauma Absent #1 Nutrition Diagnosis Inadequate oral intake Diagnosis Progress(for reassessment Continues documentation) Is patient on ventilator? No Is Patient Ambulatory and/or Out of Bed No REE-([facility]-confined to bed) 1786.116 Kcal/Kg value to use for calculation 17 Approximate Energy Requirements Using 1501 kcal/Kg Calculation Used for Recommendations [facility] Additional Notes Protein needs: 89-96g (1.2-1. 3g/kg AdjBW) AdjBW: 74kg Fluid: 1 L or per MD Nutrition Intervention Nutrition Support: Nepro at 40mL/hr with 50mL flush q4h or per MD Kcal 1,728 Protein (gm) 78 Fluid (mL) 698 Goal #1 TF to continue to meet at least 75% of energy and protein needs Anticipated Discharge Needs: Nepro at 40mL/hr with 50mL flush q4h or per MD order Follow-Up By: 08/23/18 Additional Comments Follow for TF tolerance
[2018-08-17] MEDS: PROCRIT SUB-Q PRN (12:45)
--- NOTE | 2018-08-17 13:13 | Progress Note ---
Assessment and Plan Patient awake. Resting on T tube, FIO2 28%. O2 saturation 100%. No acute respiratory distress. - Patient Problems (1) Acute respiratory failure with hypoxia Current Visit: Yes Status: Acute Plan to address problem: T tube and is on FIO2 28% and O2 saturation 100%.No acute respiratory distress.Awake, Not following commands Albuterol/atrovent aerosol treatments q 6 hours. Respiratory suctioning. (2) ESRD needing dialysis Current Visit: Yes Status: Chronic Plan to address problem: Management as per nephrology. (3) GERD (gastroesophageal reflux disease) Current Visit: Yes Status: Chronic Qualifiers: Esophagitis presence: with esophagitis Qualified Code(s): K21.0 - Gastro- esophageal reflux disease with esophagitis Plan to address problem: Patient is on Famotidine. (4) HTN (hypertension) Current Visit: Yes Status: Chronic Qualifiers: Hypertension type: essential hypertension Qualified Code(s): I10 - Essential (primary) hypertension Plan to address problem: Management as per primary care. (5) IDDM (insulin dependent diabetes mellitus) Current Visit: Yes Status: Chronic Plan to address problem: Management as per primary care. (6) History of CVA (cerebrovascular accident) Current Visit: No Status: Chronic Plan to address problem: Management as per primary care and neurology. (7) Pressure ulcer of sacral region, stage 3 Current Visit: Yes Status: Acute Plan to address problem: wound care. Patient is on Zyvox. Subjective Date of service: 08/17/18 Principal diagnosis: Ac on Ch hypoxemic Resp failure; Diabetes type II; ESRD on dialysis (M/W/F) Interval history: Patient awake. Resting on T tube, FIO2 28%. O2 saturation 100%. No acute respiratory distress. Objective Vital Signs - 12hr 08/17/18 08/17/18 08/17/18 05:39 08:28 08:35 Temperature 98.1 F Pulse Rate 79 Pulse Rate [ 90 Posterior Bilateral Throughout] Respiratory 18 Rate Respiratory 18 Rate [Posterior Bilateral Throughout] Blood Pressure 149/68 O2 Sat by Pulse 100 100 Oximetry O2 Sat by Pulse Oximetry [ Assessment] 08/17/18 08/17/18 08/17/18 08:38 10:00 10:15 Temperature 98.4 F Pulse Rate 96 H 89 Pulse Rate [ 92 H Posterior Bilateral Throughout] Respiratory 18 Rate Respiratory 18 Rate [Posterior Bilateral Throughout] Blood Pressure 159/61 101/54 O2 Sat by Pulse Oximetry O2 Sat by Pulse 100 Oximetry [ Assessment] 08/17/18 08/17/18 08/17/18 10:30 10:45 11:00 Temperature Pulse Rate 92 H 82 87 Pulse Rate [ Posterior Bilateral Throughout] Respiratory Rate Respiratory Rate [Posterior Bilateral Throughout] Blood Pressure 114/74 146/15 129/77 O2 Sat by Pulse Oximetry O2 Sat by Pulse Oximetry [ Assessment] 08/17/18 08/17/18 08/17/18 11:15 11:30 11:45 Temperature Pulse Rate 87 84 87 Pulse Rate [ Posterior Bilateral Throughout] Respiratory Rate Respiratory Rate [Posterior Bilateral Throughout] Blood Pressure 133/54 113/51 110/47 O2 Sat by Pulse Oximetry O2 Sat by Pulse Oximetry [ Assessment] 08/17/18 08/17/18 08/17/18 12:00 12:15 12:30 Temperature Pulse Rate 87 90 88 Pulse Rate [ Posterior Bilateral Throughout] Respiratory Rate Respiratory Rate [Posterior Bilateral Throughout] Blood Pressure 128/62 119/45 123/64 O2 Sat by Pulse Oximetry O2 Sat by Pulse Oximetry [ Assessment] 08/17/18 12:45 Temperature Pulse Rate 89 Pulse Rate [ Posterior Bilateral Throughout] Respiratory Rate Respiratory Rate [Posterior Bilateral Throughout] Blood Pressure 130/52 O2 Sat by Pulse Oximetry O2 Sat by Pulse Oximetry [ Assessment] Constitutional: no acute distress, alert, other (middle aged AAF, normocephalic with mildly increased respiratory effort on t-piece) Eyes: non-icteric ENT: oropharynx moist Neck: supple, no lymphadenopathy, no JVD, other (+ midline tracheostomy tube) Effort: mildly labored Ascultation: Bilateral: diminished breath sounds, rhonchi Percussion: Bilateral: not dull Cardiovascular: regular rate and rhythm, murmur noted (s1,S2, systolic murmur) Gastrointestinal: normoactive bowel sounds, soft, non-tender, non-distended, other (PEG in place) Integumentary: rash Extremities: no cyanosis, no edema, pulses normal, no ischemia or petechiae Neurologic: pupils equal and round, other (not obeying commands to adequately assess) Psychiatric: other (flat affect) CBC and BMP: 08/17/18 09:56 08/17/18 10:35 ABG, PT/INR, D-dimer: ABG POC ABG pH 7.403 (7.35-7.45) 08/02/18 09:07 POC ABG pCO2 43.2 (35-45) 08/02/18 09:07 POC ABG pO2 125 (80-105) H 08/02/18 09:07 POC ABG HCO3 26.9 08/02/18 09:07 POC ABG Total CO2 28 08/02/18 09:07 POC ABG O2 Sat 99 08/02/18 09:07 PT/INR, D-dimer PT 14.4 Sec. (12.2-14.9) 08/01/18 11:30 INR 1.05 (0.87-1.13) 08/01/18 11:30 Abnormal lab findings: Abnormal Labs 08/01/18 08/01/18 08/01/18 11:30 11:30 11:30 WBC 13.7 H RBC 2.81 L Hgb 8.9 L Hct 27.4 L MCV 98 H MCH MCHC RDW 16.0 H Lymph % (Auto) 10.1 L Woods % (Auto) Lymph # Woods # Seg Neutrophils % 84.3 H Seg Neuts % (Manual) Lymphocytes % (Manual) Seg Neutrophils # 11.6 H Seg Neutrophils # Man Lymphocytes # (Manual) APTT 23.5 L POC ABG pCO2 POC ABG pO2 Sodium 133 L Potassium Chloride 89.8 L BUN 78 H Creatinine 8.7 H D Glucose 177 H POC Glucose Magnesium ALT C-Reactive Protein Albumin Crossmatch 08/01/18 08/01/18 08/02/18 18:38 19:56 09:07 WBC RBC Hgb Hct MCV MCH MCHC RDW Lymph % (Auto) Woods % (Auto) Lymph # Woods # Seg Neutrophils % Seg Neuts % (Manual) Lymphocytes % (Manual) Seg Neutrophils # Seg Neutrophils # Man Lymphocytes # (Manual) APTT POC ABG pCO2 48.2 H POC ABG pO2 146 H 125 H Sodium Potassium Chloride BUN Creatinine Glucose POC Glucose Magnesium 2.80 H ALT C-Reactive Protein Albumin Crossmatch 08/02/18 08/02/18 08/02/18 16:22 16:22 17:21 WBC RBC 2.42 L Hgb 8.1 L Hct 22.8 L MCV MCH 34 H MCHC 36 H RDW 15.7 H Lymph % (Auto) Woods % (Auto) Lymph # Woods # Seg Neutrophils % Seg Neuts % (Manual) 94.0 H Lymphocytes % (Manual) 6.0 L Seg Neutrophils # Seg Neutrophils # Man 9.9 H Lymphocytes # (Manual) 0.6 L APTT POC ABG pCO2 POC ABG pO2 Sodium 134 L Potassium Chloride 90.7 L BUN 38 H Creatinine 4.8 H Glucose 175 H POC Glucose 191 H Magnesium ALT < 5 L C-Reactive Protein Albumin 2.9 L Crossmatch 08/03/18 08/03/18 08/03/18 05:19 07:43 07:43 WBC RBC 2.67 L Hgb 8.3 L Hct 24.9 L MCV MCH MCHC RDW 15.6 H Lymph % (Auto) Woods % (Auto) Lymph # [place] # Seg Neutrophils % Seg Neuts % (Manual) Lymphocytes % (Manual) Seg Neutrophils # Seg Neutrophils # Man Lymphocytes # (Manual) APTT POC ABG pCO2 POC ABG pO2 Sodium 134 L Potassium Chloride 89.7 L BUN 52 H Creatinine 5.9 H Glucose 180 H POC Glucose 212 H Magnesium ALT C-Reactive Protein Albumin Crossmatch 08/03/18 08/03/18 08/04/18 12:32 23:42 05:42 WBC RBC Hgb Hct MCV MCH MCHC RDW Lymph % (Auto) Woods % (Auto) Lymph # [place] # Seg Neutrophils % Seg Neuts % (Manual) Lymphocytes % (Manual) Seg Neutrophils # Seg Neutrophils # Man Lymphocytes # (Manual) APTT POC ABG pCO2 POC ABG pO2 Sodium Potassium Chloride BUN Creatinine Glucose POC Glucose 223 H 139 H 151 H Magnesium ALT C-Reactive Protein Albumin Crossmatch 08/04/18 08/04/18 08/04/18 12:11 17:12 20:55 WBC RBC Hgb Hct MCV MCH MCHC RDW Lymph % (Auto) [place] % (Auto) Lymph # [place] # Seg Neutrophils % Seg Neuts % (Manual) Lymphocytes % (Manual) Seg Neutrophils # Seg Neutrophils # Man Lymphocytes # (Manual) APTT POC ABG pCO2 POC ABG pO2 Sodium Potassium Chloride BUN Creatinine Glucose POC Glucose 193 H 137 H 175 H Magnesium ALT C-Reactive Protein Albumin Crossmatch 08/04/18 08/05/18 08/05/18 23:23 05:55 12:03 WBC RBC Hgb Hct MCV MCH MCHC RDW Lymph % (Auto) Woods % (Auto) Lymph # [place] # Seg Neutrophils % Seg Neuts % (Manual) Lymphocytes % (Manual) Seg Neutrophils # Seg Neutrophils # Man Lymphocytes # (Manual) APTT POC ABG pCO2 POC ABG pO2 Sodium Potassium Chloride BUN Creatinine Glucose POC Glucose 165 H 135 H 158 H Magnesium ALT C-Reactive Protein Albumin Crossmatch 08/05/18 08/06/18 08/06/18 23:42 06:05 10:25 WBC 11.8 H RBC 2.61 L Hgb 8.2 L Hct 24.9 L MCV MCH MCHC RDW 15.8 H Lymph % (Auto) Woods % (Auto) Lymph # [place] # Seg Neutrophils % Seg Neuts % (Manual) Lymphocytes % (Manual) Seg Neutrophils # Seg Neutrophils # Man Lymphocytes # (Manual) APTT POC ABG pCO2 POC ABG pO2 Sodium Potassium Chloride BUN Creatinine Glucose POC Glucose 120 H 196 H Magnesium ALT C-Reactive Protein Albumin Crossmatch 08/06/18 08/06/18 08/06/18 10:25 12:31 17:26 WBC RBC Hgb Hct MCV MCH MCHC RDW Lymph % (Auto) Woods % (Auto) Lymph # [place] # Seg Neutrophils % Seg Neuts % (Manual) Lymphocytes % (Manual) Seg Neutrophils # Seg Neutrophils # Man Lymphocytes # (Manual) APTT POC ABG pCO2 POC ABG pO2 Sodium 136 L Potassium 3.3 L D Chloride 93.2 L BUN 32 H Creatinine 4.5 H Glucose 134 H POC Glucose 184 H 174 H Magnesium ALT C-Reactive Protein Albumin Crossmatch 08/07/18 08/07/18 08/07/18 00:32 05:47 11:53 WBC RBC Hgb Hct MCV MCH MCHC RDW Lymph % (Auto) Woods % (Auto) Lymph # [place] # Seg Neutrophils % Seg Neuts % (Manual) Lymphocytes % (Manual) Seg Neutrophils # Seg Neutrophils # Man Lymphocytes # (Manual) APTT POC ABG pCO2 POC ABG pO2 Sodium Potassium Chloride BUN Creatinine Glucose POC Glucose 190 H 203 H 161 H Magnesium ALT C-Reactive Protein Albumin Crossmatch 08/07/18 08/08/18 08/08/18 16:39 00:49 06:41 WBC RBC Hgb Hct MCV MCH MCHC RDW Lymph % (Auto) Woods % (Auto) Lymph # [place] # Seg Neutrophils % Seg Neuts % (Manual) Lymphocytes % (Manual) Seg Neutrophils # Seg Neutrophils # Man Lymphocytes # (Manual) APTT POC ABG pCO2 POC ABG pO2 Sodium Potassium Chloride BUN Creatinine Glucose POC Glucose 217 H 186 H 167 H Magnesium ALT C-Reactive Protein Albumin Crossmatch 08/08/18 08/08/18 08/09/18 13:09 16:49 00:02 WBC RBC Hgb Hct MCV MCH MCHC RDW Lymph % (Auto) Woods % (Auto) Lymph # [place] # Seg Neutrophils % Seg Neuts % (Manual) Lymphocytes % (Manual) Seg Neutrophils # Seg Neutrophils # Man Lymphocytes # (Manual) APTT POC ABG pCO2 POC ABG pO2 Sodium Potassium Chloride BUN Creatinine Glucose POC Glucose 224 H 212 H 188 H Magnesium ALT C-Reactive Protein Albumin Crossmatch 08/09/18 08/09/18 08/09/18 05:35 05:35 05:47 WBC RBC 2.93 L Hgb 9.3 L Hct 27.1 L MCV MCH MCHC RDW 15.7 H Lymph % (Auto) 10.1 L Woods % (Auto) Lymph # 1.0 L [place] # Seg Neutrophils % 83.6 H Seg Neuts % (Manual) Lymphocytes % (Manual) Seg Neutrophils # 8.5 H Seg Neutrophils # Man Lymphocytes # (Manual) APTT POC ABG pCO2 POC ABG pO2 Sodium 135 L Potassium 3.3 L Chloride 93.1 L BUN 39 H Creatinine 5.3 H Glucose 172 H POC Glucose 207 H Magnesium ALT C-Reactive Protein Albumin 2.0 L Crossmatch 08/09/18 08/09/18 08/09/18 11:56 18:30 20:23 WBC RBC Hgb Hct MCV MCH MCHC RDW Lymph % (Auto) Woods % (Auto) Lymph # [place] # Seg Neutrophils % Seg Neuts % (Manual) Lymphocytes % (Manual) Seg Neutrophils # Seg Neutrophils # Man Lymphocytes # (Manual) APTT POC ABG pCO2 POC ABG pO2 Sodium Potassium Chloride BUN Creatinine Glucose POC Glucose 272 H 148 H 197 H Magnesium ALT C-Reactive Protein Albumin Crossmatch 08/10/18 08/10/18 08/10/18 01:09 05:12 05:12 WBC RBC 2.32 L Hgb 7.2 L Hct 21.6 L MCV MCH MCHC RDW 16.1 H Lymph % (Auto) Woods % (Auto) Lymph # [place] # Seg Neutrophils % Seg Neuts % (Manual) Lymphocytes % (Manual) Seg Neutrophils # Seg Neutrophils # Man Lymphocytes # (Manual) APTT POC ABG pCO2 POC ABG pO2 Sodium 133 L Potassium Chloride 90.4 L BUN 57 H Creatinine 6.5 H Glucose 184 H POC Glucose 213 H Magnesium ALT C-Reactive Protein Albumin Crossmatch 08/10/18 08/10/18 08/11/18 06:09 20:30 00:51 WBC RBC Hgb Hct MCV MCH MCHC RDW Lymph % (Auto) [place] % (Auto) Lymph # [place] # Seg Neutrophils % Seg Neuts % (Manual) Lymphocytes % (Manual) Seg Neutrophils # Seg Neutrophils # Man Lymphocytes # (Manual) APTT POC ABG pCO2 POC ABG pO2 Sodium Potassium Chloride BUN Creatinine Glucose POC Glucose 185 H 181 H Magnesium ALT C-Reactive Protein 14.30 H Albumin Crossmatch 08/11/18 08/11/18 08/11/18 05:35 10:22 10:22 WBC RBC Hgb 6.9 L Hct 20.7 L MCV MCH MCHC RDW Lymph % (Auto) Woods % (Auto) Lymph # [place] # Seg Neutrophils % Seg Neuts % (Manual) Lymphocytes % (Manual) Seg Neutrophils # Seg Neutrophils # Man Lymphocytes # (Manual) APTT POC ABG pCO2 POC ABG pO2 Sodium 132 L Potassium Chloride 89.8 L BUN 61 H Creatinine 7.1 H Glucose 187 H POC Glucose 185 H Magnesium ALT C-Reactive Protein Albumin Crossmatch 08/11/18 08/11/18 08/12/18 11:01 17:10 01:35 WBC RBC Hgb Hct MCV MCH MCHC RDW Lymph % (Auto) [place] % (Auto) Lymph # [place] # Seg Neutrophils % Seg Neuts % (Manual) Lymphocytes % (Manual) Seg Neutrophils # Seg Neutrophils # Man Lymphocytes # (Manual) APTT POC ABG pCO2 POC ABG pO2 Sodium Potassium Chloride BUN Creatinine Glucose POC Glucose 197 H 170 H 214 H Magnesium ALT C-Reactive Protein Albumin Crossmatch 08/12/18 08/12/18 08/12/18 05:02 05:09 13:51 WBC RBC 2.20 L Hgb 6.8 L Hct 20.7 L MCV MCH MCHC RDW 16.7 H Lymph % (Auto) 12.8 L Woods % (Auto) 8.8 H Lymph # Woods # 0.9 H Seg Neutrophils % 74.9 H Seg Neuts % (Manual) Lymphocytes % (Manual) Seg Neutrophils # Seg Neutrophils # Man Lymphocytes # (Manual) APTT POC ABG pCO2 POC ABG pO2 Sodium Potassium Chloride BUN Creatinine Glucose POC Glucose 187 H 221 H Magnesium ALT C-Reactive Protein Albumin Crossmatch 08/12/18 08/12/18 08/13/18 16:42 23:33 05:39 WBC RBC Hgb 6.3 L Hct 19.3 L* MCV MCH MCHC RDW Lymph % (Auto) Woods % (Auto) Lymph # [place] # Seg Neutrophils % Seg Neuts % (Manual) Lymphocytes % (Manual) Seg Neutrophils # Seg Neutrophils # Man Lymphocytes # (Manual) APTT POC ABG pCO2 POC ABG pO2 Sodium Potassium Chloride BUN Creatinine Glucose POC Glucose 187 H 236 H Magnesium ALT C-Reactive Protein Albumin Crossmatch 08/13/18 08/13/18 08/13/18 06:47 07:37 11:45 WBC RBC Hgb Hct MCV MCH MCHC RDW Lymph % (Auto) [place] % (Auto) Lymph # [place] # Seg Neutrophils % Seg Neuts % (Manual) Lymphocytes % (Manual) Seg Neutrophils # Seg Neutrophils # Man Lymphocytes # (Manual) APTT POC ABG pCO2 POC ABG pO2 Sodium Potassium Chloride BUN Creatinine Glucose POC Glucose 267 H 255 H Magnesium ALT C-Reactive Protein Albumin Crossmatch See Detail 08/13/18 08/13/18 08/14/18 16:24 23:10 05:13 WBC RBC Hgb Hct MCV MCH MCHC RDW Lymph % (Auto) Woods % (Auto) Lymph # [place] # Seg Neutrophils % Seg Neuts % (Manual) Lymphocytes % (Manual) Seg Neutrophils # Seg Neutrophils # Man Lymphocytes # (Manual) APTT POC ABG pCO2 POC ABG pO2 Sodium Potassium Chloride BUN Creatinine Glucose POC Glucose 150 H 194 H 138 H Magnesium ALT C-Reactive Protein Albumin Crossmatch 08/14/18 08/14/18 08/14/18 07:02 07:02 11:47 WBC 16.0 H RBC 2.55 L Hgb 7.6 L Hct 23.5 L MCV MCH MCHC RDW 17.0 H Lymph % (Auto) [place] % (Auto) Lymph # [place] # Seg Neutrophils % Seg Neuts % (Manual) Lymphocytes % (Manual) Seg Neutrophils # Seg Neutrophils # Man Lymphocytes # (Manual) APTT POC ABG pCO2 POC ABG pO2 Sodium 133 L Potassium Chloride 88.7 L BUN 40 H Creatinine 6.2 H Glucose 204 H POC Glucose 224 H Magnesium ALT C-Reactive Protein Albumin Crossmatch 08/14/18 08/15/18 08/15/18 17:13 00:00 05:32 WBC RBC Hgb Hct MCV MCH MCHC RDW Lymph % (Auto) [place] % (Auto) Lymph # [place] # Seg Neutrophils % Seg Neuts % (Manual) Lymphocytes % (Manual) Seg Neutrophils # Seg Neutrophils # Man Lymphocytes # (Manual) APTT POC ABG pCO2 POC ABG pO2 Sodium Potassium Chloride BUN Creatinine Glucose POC Glucose 152 H 134 H 161 H Magnesium ALT C-Reactive Protein Albumin Crossmatch 08/15/18 08/15/18 08/15/18 06:55 12:23 17:10 WBC RBC Hgb 8.1 L Hct 23.6 L MCV MCH MCHC RDW Lymph % (Auto) [place] % (Auto) Lymph # [place] # Seg Neutrophils % Seg Neuts % (Manual) Lymphocytes % (Manual) Seg Neutrophils # Seg Neutrophils # Man Lymphocytes # (Manual) APTT POC ABG pCO2 POC ABG pO2 Sodium Potassium Chloride BUN Creatinine Glucose POC Glucose 172 H 151 H Magnesium ALT C-Reactive Protein Albumin Crossmatch 08/16/18 08/16/18 08/16/18 00:21 06:39 07:04 WBC 13.4 H RBC 2.82 L Hgb 8.5 L Hct 25.7 L MCV MCH MCHC RDW 16.3 H Lymph % (Auto) 12.1 L Woods % (Auto) Lymph # Woods # 0.9 H Seg Neutrophils % 79.4 H Seg Neuts % (Manual) Lymphocytes % (Manual) Seg Neutrophils # 10.6 H Seg Neutrophils # Man Lymphocytes # (Manual) APTT POC ABG pCO2 POC ABG pO2 Sodium Potassium Chloride BUN Creatinine Glucose POC Glucose 148 H 147 H Magnesium ALT C-Reactive Protein Albumin Crossmatch 08/16/18 08/16/18 08/17/18 11:53 16:29 00:18 WBC RBC Hgb Hct MCV MCH MCHC RDW Lymph % (Auto) [place] % (Auto) Lymph # [place] # Seg Neutrophils % Seg Neuts % (Manual) Lymphocytes % (Manual) Seg Neutrophils # Seg Neutrophils # Man Lymphocytes # (Manual) APTT POC ABG pCO2 POC ABG pO2 Sodium Potassium Chloride BUN Creatinine Glucose POC Glucose 181 H 121 H 173 H Magnesium ALT C-Reactive Protein Albumin Crossmatch 08/17/18 08/17/18 08/17/18 06:51 09:56 10:35 WBC 12.7 H RBC 2.50 L Hgb 7.3 L Hct 22.9 L MCV MCH MCHC RDW 16.4 H Lymph % (Auto) 8.9 L [place] % (Auto) Lymph # 1.1 L [place] # Seg Neutrophils % 84.5 H Seg Neuts % (Manual) Lymphocytes % (Manual) Seg Neutrophils # 10.7 H Seg Neutrophils # Man Lymphocytes # (Manual) APTT POC ABG pCO2 POC ABG pO2 Sodium 136 L Potassium 3.4 L Chloride 93.2 L BUN 35 H Creatinine 6.1 H Glucose 143 H POC Glucose 142 H Magnesium ALT C-Reactive Protein Albumin Crossmatch Allied health notes reviewed: nursing
[2018-08-17] MEDS: MERREM/NS 500 MG/50 ML 500 MG/50 ML BAG IV SCH (14:13)
[2018-08-17] MEDS: HALFPRIN EC PO SCH (14:14)
[2018-08-17] MEDS: ZINC SULFATE PO SCH (14:14)
[2018-08-17] MEDS: ZYVOX PO SCH ×2 (14:14→22:25)
[2018-08-17] MEDS: PEPCID PO SCH (14:14)
[2018-08-17] MEDS: SODIUM CHLORIDE FLUSH SYRINGE 10 ML IV SCH ×2 (14:14→22:26)
[2018-08-17] MEDS: LOPRESSOR PO SCH ×2 (14:20→22:26)
[2018-08-17] MEDS: NORVASC PO SCH (14:20)
[2018-08-17] MEDS: CORDARONE PO SCH (14:20)
[2018-08-18] MEDS: HumaLOG SUB-Q SCH ×2 (00:53→06:24)
[2018-08-18] MEDS: IMODIUM PO SCH ×3 (00:57→12:42)
[2018-08-18 07:25] LABS: Hematocrit 27.3 % (30.3-42.9); Hemoglobin 9.3 gm/dl (10.1-14.3); Mean Corpuscular HGB Conc 34 % (30-34); Mean Corpuscular Volume 92 fl (79-97); Platelet Count 316 K/mm3 (140-440); Red Blood Count 2.98 M/mm3 (3.65-5.03); Red Cell Distribution Width 16.7 % (13.2-15.2)
[2018-08-18] MEDS: DUONEB *Not for PRN Use IH SCH ×2 (07:38→13:15)
[2018-08-18 07:41] LABS: BUN/Creatinine Ratio 7; Blood Urea Nitrogen 33 mg/dL (7-17); Calcium 9.3 mg/dL (8.4-10.2); Hemolysis Index 69; Iron 28 ug/dL (37-170)
[2018-08-18 07:42] LABS: Total Iron Binding Capacity 153 mcg/dL (250-450)
--- NOTE | 2018-08-18 09:10 | Progress Note ---
Assessment and Plan 1. ESRD: Continue hemodialysis three times a week, MWF schedule. 2. Thrombosed left arm AVG: S/p tunnel catheter. 3. Respiratory failure: Trached, on T-piece. Followed by Pulmonary. 4. Anemia: S/p one unit of PRBC. Epogen with HD. 5. Hypertension: On Amlodipine. 6. Sepsis: Followed by ID. 7. H/o Cardiac arrest. 8. H/o CVA. 9. Anoxic encephalopathy. Subjective Date of service: 08/18/18 Principal diagnosis: Ac on Ch hypoxemic Resp failure; Diabetes type II; ESRD on dialysis (M/W/F) Interval history: Patient was seen and examined at the bedside. Objective - Vital Signs Vital signs: Vital Signs - 12hr 08/17/18 08/17/18 08/17/18 21:50 21:59 22:00 Temperature Pulse Rate Pulse Rate [ 80 85 Anterior Bilateral Throughout] Pulse Rate [ Posterior Bilateral Throughout] Respiratory Rate Respiratory 18 20 Rate [Anterior Bilateral Throughout] Respiratory Rate [Posterior Bilateral Throughout] Blood Pressure O2 Sat by Pulse 98 Oximetry O2 Sat by Pulse 98 Oximetry [ Assessment] 08/17/18 08/17/18 08/18/18 22:26 23:29 04:12 Temperature 98.4 F Pulse Rate 85 80 Pulse Rate [ Anterior Bilateral Throughout] Pulse Rate [ Posterior Bilateral Throughout] Respiratory 18 Rate Respiratory Rate [Anterior Bilateral Throughout] Respiratory Rate [Posterior Bilateral Throughout] Blood Pressure 150/72 120/60 O2 Sat by Pulse 100 Oximetry O2 Sat by Pulse 100 Oximetry [ Assessment] 08/18/18 08/18/18 08/18/18 04:54 07:36 07:38 Temperature 97.9 F Pulse Rate 36 L Pulse Rate [ Anterior Bilateral Throughout] Pulse Rate [ 89 Posterior Bilateral Throughout] Respiratory 20 Rate Respiratory Rate [Anterior Bilateral Throughout] Respiratory 16 Rate [Posterior Bilateral Throughout] Blood Pressure 151/72 O2 Sat by Pulse 51 L 100 Oximetry O2 Sat by Pulse Oximetry [ Assessment] 08/18/18 07:51 Temperature Pulse Rate Pulse Rate [ Anterior Bilateral Throughout] Pulse Rate [ 90 Posterior Bilateral Throughout] Respiratory Rate Respiratory Rate [Anterior Bilateral Throughout] Respiratory 16 Rate [Posterior Bilateral Throughout] Blood Pressure O2 Sat by Pulse Oximetry O2 Sat by Pulse Oximetry [ Assessment] - General Appearance General appearance: well-developed, appears stated age, other (not in distress, left IJ tunnel catheter) EENT: ATNC Neck: other (Trached on T-piece) Respiratory: Present: Clear to Ascultation Cardiology: regular, S1S2, no murmurs Gastrointestinal: normoactive bowel sounds, no tenderness, no distended, other ( PEG tube noted) Neurologic: other (not following any command) Musculoskeletal: other (no edema) - Lab 08/18/18 06:59 08/18/18 06:59 Most recent lab results Calcium 9.3 mg/dL (8.4-10.2) 08/18/18 06:59 Magnesium 2.80 mg/dL (1.7-2.3) H 08/01/18 19:56 Medications & Allergies - Medications Allergies/Adverse Reactions: Allergies ondansetron Allergy (Verified 08/01/18 11:00) Anaphylaxis sulfamethoxazole [From Bactrim] Allergy (Verified 08/01/18 11:00) Anaphylaxis trimethoprim [From Bactrim] Allergy (Verified 08/01/18 11:00) Anaphylaxis vancomycin Allergy (Verified 08/01/18 11:00) Anaphylaxis Home Medications: Home Medications Medication Instructions Recorded Confirmed Last Taken Type ALBUTEROL NEB's [Proventil 0.083% 3 ml IH Q4HR 07/26/18 08/20/18 08/19/18 History NEBS] Metoprolol [Lopressor TAB] 25 mg PO BID tablet 07/29/18 08/20/18 08/19/18 Rx amLODIPine [Norvasc] 5 mg PO QDAY tablet 07/29/18 08/20/18 08/19/18 Rx Amiodarone HCl [Pacerone] 200 mg PO DAILY 08/01/18 08/20/18 08/19/18 History Aspirin [Adult Aspirin] 81 mg PO DAILY 08/01/18 08/20/18 08/19/18 History Carvedilol [Coreg] 12.5 mg PO BID 08/01/18 08/20/18 08/19/18 History Famotidine 20 mg PO DAILY 08/01/18 08/20/18 08/19/18 History Gabapentin [Gralise] 30 mg PO QHS 08/01/18 08/20/18 08/19/18 History Lispro Insulin [Humalog] 0 unit SQ TID 08/01/18 08/20/18 08/19/18 History Loperamide [Imodium] 2 mg PO Q6H 08/01/18 08/20/18 08/19/18 History Sevelamer Carbonate [Renvela] 800 mg PO TIDWM 08/01/18 08/20/18 08/19/18 History Zinc Sulfate 220 mg PO DAILY 08/01/18 08/20/18 08/19/18 History Acetaminophen [Acetaminophen TAB] 650 mg PO Q4H PRN #15 tablet 08/09/18 08/20/18 08/19/18 Rx Midodrine [Proamatine] 10 mg PO BID #60 tablet 08/09/18 08/20/18 08/19/18 Rx QUEtiapine [SEROquel] 25 mg PO BID@0800,1700 #60 tablet 08/09/18 08/20/18 08/19/18 Rx QUEtiapine [SEROquel] 50 mg PO QHS #30 tablet 08/09/18 08/20/18 08/19/18 Rx Simple Syrup 30 ml FEEDTUBE PRN PRN #30 08/09/18 08/20/18 08/19/18 Rx oral.liqd Sodium Bicarbonate 325 mg FEEDTUBE PRN PRN #30 tablet 08/09/18 08/20/18 08/19/18 Rx Amiodarone [Cordarone 200 MG TAB] 200 mg PO DAILY tablet 08/18/18 08/20/18 0 08/19/18 Rx Aspirin EC [Aspirin Enteric Coated 81 mg PO DAILY tablet 08/18/18 08/20/18 08/19/18 Rx TAB] Famotidine [Pepcid] 20 mg PO DAILY tablet 08/18/18 08/20/18 08/19/18 Rx Ipratropium/Albuterol Sulfate 1 ampul IH TIDRT ampul.neb 08/18/18 08/20/18 08/19/18 Rx [DUONEB *Not for PRN Use*] Linezolid [Zyvox] 600 mg PO Q12HR #34 tablet 08/18/18 08/20/18 08/19/18 Rx Lipase/Protease/Amylase [Pancreaze 1 each FEEDTUBE PRN PRN capsule 08/18/18 08/20/18 08/19/[address] 10,500 Unit] Loperamide [Imodium] 2 mg PO Q6HR #20 capsule 08/18/18 08/20/18 08/19/18 Rx Meropenem/Ns 500 mg/50 ml 500 mg IV Q24H #17 bag 08/18/18 08/20/18 08/19/18 Rx [Merrem/Ns 500 mg/50 ml] Metoprolol [Lopressor TAB] 25 mg PO BID tablet 08/18/18 08/20/18 08/19/18 Rx Sevelamer Carbonate [Renvela] 800 mg PO TIDWM tablet 08/18/18 08/20/18 08/19/18 Rx Simple Syrup 30 ml FEEDTUBE PRN PRN oral.liqd 08/18/18 08/20/18 08/19/18 Rx amLODIPine [Norvasc] 10 mg PO QDAY tablet 08/18/18 08/20/18 08/19/18 Rx oxyCODONE /ACETAMINOPHEN [Percocet 1 tab PO Q6H PRN #20 tablet 08/18/18 08/20/18 08/19/18 Rx 5/325 mg] oxyCODONE /ACETAMINOPHEN [Percocet 1 tab PO Q6HR PRN #20 tablet 08/18/18 08/20/18 08/19/18 Rx 5/325] Active Medications: Generic Name Dose Route Start Last Admin Trade Name Freq PRN Reason Stop Dose Admin Acetaminophen 650 mg 08/01/18 19:44 08/13/18 12:03 Tylenol PO 650 mg Q4H PRN Administration Pain MILD(1-3)/Fever >100.5/CASAREZ Albuterol/Ipratropium 1 ampul 08/02/18 14:00 08/18/18 07:38 Duoneb *Not For Prn Use* IH 1 ampul TIDRT SERENITY Administration Amiodarone HCl 200 mg 08/01/18 22:00 08/17/18 14:20 Cordarone PO 200 mg DAILY SERENITY Administration Amlodipine Besylate 10 mg 08/16/18 15:00 08/17/18 14:20 Norvasc PO 10 mg QDAY SERENITY Administration Lipase/Protease/Amylase 1 each 08/11/18 11:20 Pancretevin Jerome 10,500 Unit FEEDTUBE PRN PRN For Clogged Feeding Tube Aspirin 81 mg 08/01/18 22:00 03/06/19 14:14 Halfprin Ec PO 81 mg DAILY SERENITY Administration Epoetin Beka 20,000 unit 08/02/18 10:41 08/17/18 12:45 Procrit SUB-Q 20,000 unit ANJANA PRN Administration hemodialysis Famotidine 20 mg 08/01/18 22:00 08/17/18 14:14 Pepcid PO 20 mg DAILY SERENITY Administration Sodium Chloride 100 mls @ 999 mls/hr 08/02/18 09:40 Nacl 0.9% IV ANJANA PRN Hypotension Meropenem 500 mg in 50 mls @ 50 mls/hr 08/14/18 17:00 08/17/18 14:13 Merrem/Ns 500 Mg/50 Ml IV 50 mls/hr Q24HR SERENITY Administration Insulin Human Lispro 0 unit 08/02/18 08:00 08/18/18 06:24 Humalog SUB-Q Not Given Q6HR SERENITY Protocol Linezolid 600 mg 08/14/18 22:00 08/17/18 22:25 Zyvox PO 600 mg Q12HR SERENITY Administration Protocol Loperamide HCl 2 mg 08/01/18 22:00 08/18/18 06:24 Imodium PO 2 mg Q6HR SERENITY Administration Metoprolol Tartrate 25 mg 08/01/18 22:00 08/17/18 22:26 Lopressor PO 25 mg BID SERENITY Administration Oxycodone/Acetaminophen 1 tab 08/10/18 23:10 08/12/18 05:44 Percocet 5/325 PO 1 tab Q6H PRN Administration Pain, Moderate (4-6) Quetiapine Fumarate 50 mg 08/05/18 22:00 08/17/18 22:26 Seroquel PO 50 mg QHS SERENITY Administration Quetiapine Fumarate 25 mg 08/08/18 08:00 08/17/18 19:04 Seroquel PO 25 mg BID@0800,1700 SERENITY Administration Sevelamer Carbonate 800 mg 08/02/18 08:00 08/17/18 18:58 Renvela PO 800 mg TIDWM SERENITY Administration Simple Syrup 15 ml 08/11/18 11:20 Simple Syrup FEEDTUBE PRN PRN Hypoglycemia Simple Syrup 30 ml 08/11/18 11:20 Simple Syrup FEEDTUBE PRN PRN Hypoglycemia Sodium Bicarbonate 325 mg 08/11/18 11:20 Sodium Bicarbonate FEEDTUBE PRN PRN For Clogged Feeding Tube Sodium Chloride 10 ml 08/01/18 22:00 08/17/18 22:26 Sodium Chloride Flush Syringe 10 Ml IV 10 ml BID SERENITY Administration Sodium Chloride 10 ml 08/01/18 19:44 Sodium Chloride Flush Syringe 10 Ml IV PRN PRN LINE FLUSH Zinc Sulfate 220 mg 08/02/18 10:00 08/17/18 14:14 Zinc Sulfate PO 220 mg DAILY SERENITY Administration
[2018-08-18] MEDS: LOPRESSOR PO SCH (09:47)
[2018-08-18] MEDS: NORVASC PO SCH (09:47)
[2018-08-18] MEDS: RENVELA PO SCH ×2 (09:56→12:42)
[2018-08-18] MEDS ORDERED: HEPARIN/NS 5000 UNIT/500ML(CATH LAB) 500 ML IR ONE (09:58)
[2018-08-18] MEDS ORDERED: SUBLIMAZE ONE (09:59)
[2018-08-18] MEDS ORDERED: NACL 0.9% 500 ML 500 ML ONE ×2 (09:59)
[2018-08-18] MEDS ORDERED: VERSED ONE (09:59)
[2018-08-18] MEDS ORDERED: ANCEF/STERILE WATER 2 GM/20 ML 2 GM/20 ML SYRINGE IV ONE (09:59)
--- NOTE | 2018-08-18 10:15 | Progress Note ---
Assessment and Plan Cultures: 08/09/18 Blood: GPC, 1 out 4 bottles 08/05/18 Stool: No WBC seen 08/01/18 Sputum: Pseudomonas 08/11/18 Deep Wound: Enterococcus 08/10/18 Buttock: mixed culture, MRSA/VRE and ESBL Kelbsiella,, E. 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 On admission, she had severe hypotension preceding bradyarythmia leading to PEA arrest on 07/18/2018. Re-admitted on 08/01/18 due to increasing SOB and congestion from Trach site. Now with SIRS: 1) Sepsis: Improved, leukocytosis trending down. Etiology unclear, possibilities GPC bacteremia +/- infected stage IV sacral decubitus +/- HAP 2) GPC bacteremia: ? contaminant versus real ? source sacral decubitus. Blood cultures 08/09/2018 GPC 1 of 4 bottles, Repeat blood cultures ordered. CRP 13.3 3) HAP: Sputum 08/01/2018 Pseudomonas sens to zosyn. CXR initial 08/01 neg. Repeat CXR 08/09 patchy bibasilar infiltrates. Patient started on zyvox and zosyn. 4) Large sacral decubitus: with woundVAC. She is known to have stage IV sacral decubitus since first admission treated medically. Deep wound culture growing Enterococcocus, Buttock growing mixed culture, MRSA, MDR Klebsiella, Enterocococcus. E. coli Abdomen/Pelvis CT: Sacral ulcer as described. There are no convincing findings of abscess or osteomyelitis on noncontrast CT. 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 Large sacral decubitus: with woundVAC. Continue wound care. 6) History of recent aspiration pneumonia due to MDR Serratia treated with meropenem until 07/28/18 7) ESRD: On HD MWF- Thrombosed left arm AVG. Angioplasty yesterday. 8) Persistent Diarrhea : Improved, rectal tube. continue to monitor closely Recommendations: - continue PO Zyvox 600mg po bid, D5 - continue Meropenem 500mg IV every 24 hours, D5 - contact isolation --upon discharge will do meropenem 500mg every 24 hours and Zyvox 600mg po bid for 21 days ending 09-04-18 -order placed with case management -monitor closely for Serotonin Syndrome while on Zyvox and Seroquel Left external jugular vein PICC placed by IR -D/C right midline prior to discharge [facility] [employer] [facility] M: [phone] O:[phone] Subjective Date of service: 08/18/18 Principal diagnosis: Ac on Ch hypoxemic Resp failure; Diabetes type II; ESRD on dialysis (M/W/F) Interval history: Patient seen and examined. Asleep,easily arousable. no acute distress observed. Objective - Exam Narrative Exam: General appearance: Awake, alert non conversant Eyes: anicteric sclerae, moist conjunctivae; no lid-lag; PERRLA HENT: Atraumatic; oropharynx clear Neck: Trach Lungs: clear to auscultation. CV: RRR, no murmurs Abdomen: Soft, non-tender; +PEG GI: active bowel sounds, +rectal tube. Extremities: No peripheral edema or extremity lymphadenopathy Skin: sacral wound VAC Psych: Appropriate affect, alert, awake, nonverbal Neuro: alert non verbal - Constitutional Vitals: Vital Signs Temp Pulse Resp BP Pulse Ox 97.9 F 94 H 16 154/33 100 08/18/18 04:54 08/18/18 09:47 08/18/18 07:51 08/18/18 09:47 08/18/18 07:36 Temperature -Last 24 Hours Temperature 97.9 F Temperature 98.4 F Temperature 97.7 F Temperature 68.4 F - Labs CBC & Chem 7: 08/18/18 06:59 08/18/18 06:59 Labs: Abnormal lab results 08/17/18 08/17/18 08/17/18 Range/Units 09:56 10:35 14:36 WBC 12.7 H (4.5-11.0) K/mm3 RBC 2.50 L (3.65-5.03) M/mm3 Hgb 7.3 L (10.1-14.3) gm/dl Hct 22.9 L (30.3-42.9) % RDW 16.4 H (13.2-15.2) % Lymph % (Auto) 8.9 L (13.4-35.0) % Lymph # 1.1 L (1.2-5.4) K/mm3 Seg Neutrophils % 84.5 H (40.0-70.0) % Seg Neutrophils # 10.7 H (1.8-7.7) K/mm3 Sodium 136 L (137-145) mmol/L Potassium 3.4 L (3.6-5.0) mmol/L Chloride 93.2 L (98-107) mmol/L BUN 35 H (7-17) mg/dL Creatinine 6.1 H (0.7-1.2) mg/dL Glucose 143 H (65-100) mg/dL POC Glucose 171 H (70-105) Iron (37-170) ug/dL TIBC (250-450) mcg/dL Ferritin (13.0-400.0) ng/mL 08/17/18 08/18/18 08/18/18 Range/Units 15:48 00:26 06:23 WBC (4.5-11.0) K/mm3 RBC (3.65-5.03) M/mm3 Hgb (10.1-14.3) gm/dl Hct (30.3-42.9) % RDW (13.2-15.2) % Lymph % (Auto) (13.4-35.0) % Lymph # (1.2-5.4) K/mm3 Seg Neutrophils % (40.0-70.0) % Seg Neutrophils # (1.8-7.7) K/mm3 Sodium (137-145) mmol/L Potassium (3.6-5.0) mmol/L Chloride (98-107) mmol/L BUN (7-17) mg/dL Creatinine (0.7-1.2) mg/dL Glucose (65-100) mg/dL POC Glucose 147 H 156 H 120 H (70-105) Iron (37-170) ug/dL TIBC (250-450) mcg/dL Ferritin (13.0-400.0) ng/mL 08/18/18 08/18/18 08/18/18 Range/Units 06:59 06:59 06:59 WBC 13.1 H (4.5-11.0) K/mm3 RBC 2.98 L (3.65-5.03) M/mm3 Hgb 9.3 L (10.1-14.3) gm/dl Hct 27.3 L (30.3-42.9) % RDW 16.7 H (13.2-15.2) % Lymph % (Auto) (13.4-35.0) % Lymph # (1.2-5.4) K/mm3 Seg Neutrophils % (40.0-70.0) % Seg Neutrophils # (1.8-7.7) K/mm3 Sodium (137-145) mmol/L Potassium (3.6-5.0) mmol/L Chloride 95.5 L (98-107) mmol/L BUN 33 H (7-17) mg/dL Creatinine 4.7 H (0.7-1.2) mg/dL Glucose 117 H (65-100) mg/dL POC Glucose (70-105) Iron 28 L (37-170) ug/dL TIBC 153 L (250-450) mcg/dL Ferritin 1498.0 H (13.0-400.0) ng/mL
[2018-08-18] MEDS: XYLOCAINE 2% INFILTRATI ONE ×2 (11:04→11:15)
--- NOTE | 2018-08-18 11:38 | Operative Report ---
Operative Report Operative Report: EXAM: 1. Ultrasound-guided puncture of the left external jugular vein 2. Fluoroscopic-guided placement of a left external jugular tunneled non-cuffed smallbore dual-lumen catheter 3. SVC venography DATE: 08/18/18 INDICATION: End-stage renal disease and sepsis requiring prolonged antibiotic therapy. Requires tunneled PICC as tunneled PermCath not adequate for antibiotic delivery at nursing facility. MEDICATIONS: Please see nursing report for full details. DEVICES: 5 [place] dual-lumen power PICC catheter KILNMAN: DALIA FISHER MD CONTRAST: None PROCEDURE: The risks, benefits, and alternatives were discussed and informed consent was obtained. The patient was transported to the angiography suite in satisfactory/stable condition and was transported onto the angiography table. The patient's left external jugular vein was assessed with ultrasound and determined to be patent prior to procedure. The patient was prepped and draped in a sterile fashion. The puncture site was anesthetized. Under sonographic guidance, the left external jugular vein was punctured with a 21-gauge micropuncture needle and a 0.018 inch wire was advanced into the right atrium. Needle exchanged for transitional dilator. Wire did not easily passed into the IVC and therefore digital subtraction angiography was performed of ensuring patency of the SVC and confirming venous catheter placement. Wire was then reinserted and left in the right atrium. A suitable exit site was identified on the patient's chest inferior and lateral to the venotomy. The site was anesthetized with local anesthetic and the track was anesthetized. Dermatotomy was made. The 5 [place]ian dual-lumen smallbore catheter was tunneled between the dermatotomy to the venotomy with the assistance of a metal tunneler. Over 0.018 inch wire, the transitional dilator was exchanged for a 5 [place]ian peel-away sheath. The wire was used to michell intravascular distance and removed. The catheter was cut to appropriate size. The catheter was advanced through the peel-away sheath and positioned centrally under fluoroscopic guidance. The peel-away sheath was removed. 4-0 Vicryl suture was used to close the venotomy and Dermabond was then applied. 3-0 Ethilon suture was used to secure the catheter at the dermatotomy. The catheter was charged with heparinized saline. Sterile caps and dressing applied with biopatch. The patient was transferred from the angiography suite back to the floor in stable condition. FINDINGS: 1. Excellent flow was obtained through the dual lumen smallbore tunneled catheter. 2. The catheter tip is in the right atrium. 3. The SVC is patent. IMPRESSION: 1. Successful ultrasound and fluoroscopically guided placement of a left external jugular tunneled non-cuffed dual-lumen catheter.
--- NOTE | 2018-08-18 11:38 | Discharge Summary ---
Providers - Providers Date of Admission: 08/01/18 19:44 Date of discharge: 08/18/18 Attending physician: TULIO ANDREW 08/01/18 19:47 Consult to Dietitian/Nutrition [CONS] Routine Physician Instructions: Reason For Exam: peg tube feeding Reason for Consult: Write/Manage Tube Feeding Reason for Consult: Write/Manage Tube Feeding 08/02/18 07:02 Consult to Case Management [CONS] Routine Services Needed at Discharge: Home Health Services [employer] Manager Notified:: case management Additional Physician Instructions: Needs a different SNF No proper suctioning done at the present facility Consult to Physician [CONS] Routine Comment: Consulting Provider: FLORIDA PARKS Physician Instructions: Reason For Exam: ESRD 08/02/18 07:05 Consult to Physician [CONS] Routine Comment: Consulting Provider: EDIN DE LA FUENTE Physician Instructions: Reason For Exam: Desaturation sec to improper suctioning 08/02/18 10:54 Physical Therapy Evaluation and Treat [CONS] Routine Comment: Reason For Exam: Debility 08/02/18 11:56 Consult to Wound/ET Nurse [CONS] Routine Reason For Exam: wound eval 08/03/18 13:51 Consult to Physician [CONS] Urgent Comment: Consulting Provider: ADRIANO CAIN Physician Instructions: PLEASE EVALUATE SACRAL WOUND. Reason For Exam: DEBRIDEMENT 08/08/18 16:30 Consult to Case Management [CONS] Routine Services Needed at Discharge: Wound Vac Notified:: cm notified 08/09/18 11:53 Consult to Interventional Radiology [CONS] Routine Consulting Provider: DALIA ESCALANTE Reason For Exam: Clotted hemodialysis access. Place consult to:: Dr. Escalante Notified:: Paty JAMES Phone number called:: Was contact made?: Yes If yes, spoke with:: Loli-office Time called:: 11:57 08/09/18 15:29 Consult to Physician [CONS] Routine Comment: Consulting Provider: BHARGAVI JADE Physician Instructions: I notified Reason For Exam: sepsis 08/10/18 18:00 Consult to Dietitian/Nutrition [CONS] Routine Physician Instructions: Reason For Exam: Reason for Consult: Write/Manage Tube Feeding 08/14/18 16:21 Consult to Case Management [CONS] Routine Services Needed at Discharge: Home Health Services Notified:: copy left for cm Additional Physician Instructions: [facility] M [phone] O [phone] F [phone] OUTPATIENT PARENTERAL ANTIBIOTIC THERAPY ORDERS Diagnoses: Antimicrobial administration: --upon discharge will do meropenem 500mg every 24 hours and Zyvox 600mg po bid for 21 days ending 09-04-18 Remove PICC line after last dose unless otherwise instructed. Lines:PICC Lab monitoring: CBC ALT, AST, CRP and ESR once a week preferly on Wednesday morning. Please fax results to [phone] and call [phone] for critical lab results. Elle Yuen NP/Bhargavi Morales MD Date: 08/14/18 08/14/18 16:24 PICC Line Insertion [Consult to PICC Line RN] [CONS] Urgent Reason For Exam: OPAT Type Line:: PICC 08/14/18 16:25 Speech Therapy Evaluation and Treat [CONS] Routine Reason For Exam: PT SPEAKS EVALUATE FOR PASSY 08/15/18 14:52 Consult to Interventional Radiology [CONS] Urgent Consulting Provider: DALIA ESCALANTE Reason For Exam: PICC line placement Place consult to:: Dalia Escalante Notified:: no [facility] Condition: Stable Hospital course: 58 y/o female with history of hypertension, 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 On admission, she had severe hypotension preceding bradyarythmia leading to PEA arrest on 07/18/2018. Re-admitted on 08/01/18 due to increasing SOB and congestion from Trach site. Now with SIRS: 1) Sepsis: Improved, leukocytosis trending down. Etiology unclear, possibilities GPC bacteremia +/- infected stage IV sacral decubitus +/- HAP 2) GPC bacteremia: ? contaminant versus real ? source sacral decubitus. Blood cultures 08/09/2018 GPC 1 of 4 bottles, Repeat blood cultures ordered. CRP 13.3 3) HAP: Sputum 08/01/2018 Pseudomonas sens to zosyn. CXR initial 08/01 neg. Repeat CXR 08/09 patchy bibasilar infiltrates. Patient started on zyvox and zosyn. 4) Large sacral decubitus: with woundVAC. She is known to have stage IV sacral decubitus since first admission treated medically. Deep wound culture growing Enterococcocus, Buttock growing mixed culture, MRSA, MDR Klebsiella, Enterocococcus. E. coli Abdomen/Pelvis CT: Sacral ulcer as described. There are no convincing findings of abscess or osteomyelitis on noncontrast CT. 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 Large sacral decubitus: with woundVAC. Continue wound care. 6) History of recent aspiration pneumonia due to MDR Serratia treated with meropenem until 07/28/18 7) ESRD: On HD MWF- Thrombosed left arm AVG. Angioplasty yesterday. 8) Persistent Diarrhea : Improved, rectal tube. continue to monitor closely Recommendations: - continue PO Zyvox 600mg po bid,through 09/04/18 - continue Meropenem 500mg IV every 24 hours, D5 today -through 09/04/18 - contact isolation --upon discharge will do meropenem 500mg every 24 hours and Zyvox 600mg po bid for 21 days ending 09-04-18 - PICC line placement done today , OPAT therapy for 3 weeks. -order placed with case management -monitor closely for Serotonin Syndrome while on Zyvox and Seroquel Disposition: DC/[place]-03 SNF [facility] - Discharge Diagnoses (1) Acute respiratory failure with hypoxia Status: Acute (2) ESRD needing dialysis Status: Chronic (3) IDDM (insulin dependent diabetes mellitus) Status: Chronic (4) HTN (hypertension) Status: Chronic Qualifiers: Hypertension type: essential hypertension Qualified Code(s): I10 - Es sential (primary) hypertension (5) GERD (gastroesophageal reflux disease) Status: Chronic Qualifiers: Esophagitis presence: with esophagitis Qualified Code(s): K21.0 - Gastro- esophageal reflux disease with esophagitis (6) Peripheral neuropathy Status: Chronic Qualifiers: Peripheral neuropathy type: polyneuropathy, unspecified Qualified Code(s): G62.9 - Polyneuropathy, unspecified (7) DVT prophylaxis Status: Acute Core Measure Documentation - Palliative Care Palliative Care/ Comfort Measures: Not Applicable - Core Measures Any of the following diagnoses?: none Exam - Constitutional Vitals: Temp Pulse Resp BP Pulse Ox 97.9 F 94 H 16 154/33 100 08/18/18 04:54 08/18/18 09:47 08/18/18 07:51 08/18/18 09:47 08/18/18 07:36 General appearance: Present: no acute distress, well-nourished - EENT Eyes: Present: PERRL ENT: hearing intact, clear oral mucosa - Neck Neck: Present: supple, normal ROM - Respiratory Respiratory effort: normal Respiratory: bilateral: CTA - Cardiovascular Heart rate: 78 Rhythm: regular Heart Sounds: Present: S1 & S2. Absent: rub, click - Extremities Extremities: no ischemia, pulses intact, pulses symmetrical, No edema, abnormal (large sacral decubitus ulcer) Peripheral Pulses: within normal limits - Abdominal General gastrointestinal: Present: soft, non-tender, non-distended, normal bowel sounds Female genitourinary: Present: normal - Integumentary Integumentary: Present: clear, warm, dry - Musculoskeletal Musculoskeletal: generalized weakness - Psychiatric Psychiatric: appropriate mood/affect, intact judgment & insight - Neurologic Neurologic: CNII-XII intact, moves all extremities - Allied Health Allied health notes reviewed: nursing, case management Plan Follow up with: JERARDO WILD MD [Primary Care Provider] - 3-5 Days
[2018-08-18] MEDS: HALFPRIN EC PO SCH (12:41)
[2018-08-18] MEDS: PEPCID PO SCH (12:42)
[2018-08-18] MEDS: ZINC SULFATE PO SCH (12:42)
[2018-08-18] MEDS: ZYVOX PO SCH (12:42)
[2018-08-18] MEDS: CORDARONE PO SCH (12:42)
[2018-08-18] MEDS: SODIUM CHLORIDE FLUSH SYRINGE 10 ML IV SCH (12:43)
[2018-08-18] MEDS: MERREM/NS 500 MG/50 ML 500 MG/50 ML BAG IV SCH (12:43)
[2018-08-18] MEDS ORDERED: PANCREAZE DR 10,500 UNIT FEEDTUBE PRN (12:59)
[2018-08-18] MEDS ORDERED: SODIUM BICARBONATE FEEDTUBE PRN (12:59)
[2018-08-18] MEDS ORDERED: SIMPLE SYRUP FEEDTUBE PRN ×2 (12:59)
--- NOTE | 2018-08-18 14:01 | Progress Note ---
Assessment and Plan Acute on Chronic hypoxemic respiratory failure Acute on Chronic Encephalopathy (Toxic / Metabolic / Anoxic) Diabetes type II End-stage renal disease, on dialysis Wednesday, Wednesday and Wednesday Cardiomyopathy (S/P AICD implantation) Anemia of chronic disease Leukocytosis Adult failure to thrive s/p trachesotomy Oropharyngeal dysphagia (s/p PEG) S/p PPM for sinus arrest s/p Mitral valve repair h/o Mitral Valve SBE Atrial Fibrillation (Paroxysmal) - continue seroquel for delirium / anxiety - continue RTC T-piece as tolerated - continue supportive HD/UF for toxin and volume clearance - PT/OT as tolerated - continue VTE and Stress ulcer prophylaxis - continue enteric feedings as tolerated - continue accucheck with glycemic control. Target blood glucose of 140-180mg/dL - continue to monitor closely for hypoglycemia - continue bronchodilators with pulmonary hygiene per RT - Wean supplemental oxygen for O2 sats > 90% - CXR and ABG as indicated - continue other care per attending / other consultants .... discharge planning ongoing concurrently (family asking for different facility) .... re-evaluate in am & prn Subjective Date of service: 08/18/18 Principal diagnosis: Ac on Ch hypoxemic Resp failure; Diabetes type II; ESRD on dialysis (M/W/F) Interval history: Patient is seen today for: Acute on Chronic hypoxemic respiratory failure; Acute Encephalopathy (Toxic / Metabolic / Anoxic); Diabetes type II; End-stage renal disease (M/W/F) Seen and examined at bedside; 24hour events reviewed; nursing and respiratory care staff consulted; no adverse overnight events reported to me; resting peacefully in bed; Objective Vital Signs - 12hr 08/18/18 08/18/18 08/18/18 04:12 04:54 07:36 Temperature 97.9 F Pulse Rate 36 L Pulse Rate [ Posterior Bilateral Throughout] Respiratory 20 Rate Respiratory Rate [Posterior Bilateral Throughout] Blood Pressure 151/72 Blood Pressure [Right] O2 Sat by Pulse 51 L 100 Oximetry O2 Sat by Pulse 100 Oximetry [ Assessment] 08/18/18 08/18/18 08/18/18 07:38 07:51 09:47 Temperature Pulse Rate 94 H Pulse Rate [ 89 90 Posterior Bilateral Throughout] Respiratory Rate Respiratory 16 16 Rate [Posterior Bilateral Throughout] Blood Pressure 154/33 Blood Pressure [Right] O2 Sat by Pulse Oximetry O2 Sat by Pulse Oximetry [ Assessment] 08/18/18 08/18/18 08/18/18 12:51 13:15 13:26 Temperature Pulse Rate 84 Pulse Rate [ 87 89 Posterior Bilateral Throughout] Respiratory Rate Respiratory 18 18 Rate [Posterior Bilateral Throughout] Blood Pressure Blood Pressure 149/46 [Right] O2 Sat by Pulse Oximetry O2 Sat by Pulse Oximetry [ Assessment] Constitutional: alert, appears uncomfortable, other (middle aged AAF, normocephalic with mildly increased respiratory effort on t-piece) Eyes: non-icteric ENT: oropharynx moist Neck: supple, no lymphadenopathy, no JVD, other (+ midline tracheostomy tube) Effort: mildly labored Ascultation: Bilateral: diminished breath sounds, rhonchi Percussion: Bilateral: not dull Cardiovascular: regular rate and rhythm, murmur noted (systolic) Gastrointestinal: normoactive bowel sounds, soft, non-tender, non-distended Integumentary: rash Extremities: no cyanosis, no edema, pulses normal, no ischemia or petechiae Neurologic: non-focal exam (grossly), pupils equal and round, CN II-XII normal, motor strength normal and, other (delirium vs dementia element) Psychiatric: anxious, other (delirium vs dementia element) CBC and BMP: 08/18/18 06:59 08/18/18 06:59 ABG, PT/INR, D-dimer: ABG POC ABG pH 7.403 (7.35-7.45) 08/02/18 09:07 POC ABG pCO2 43.2 (35-45) 08/02/18 09:07 POC ABG pO2 125 (80-105) H 08/02/18 09:07 POC ABG HCO3 26.9 08/02/18 09:07 POC ABG Total CO2 28 08/02/18 09:07 POC ABG O2 Sat 99 08/02/18 09:07 PT/INR, D-dimer PT 14.4 Sec. (12.2-14.9) 08/01/18 11:30 INR 1.05 (0.87-1.13) 08/01/18 11:30 Abnormal lab findings: Abnormal Labs 08/01/18 08/01/18 08/01/18 11:30 11:30 11:30 WBC 13.7 H RBC 2.81 L Hgb 8.9 L Hct 27.4 L MCV 98 H MCH MCHC RDW 16.0 H Lymph % (Auto) 10.1 L [place] % (Auto) Lymph # [place] # Seg Neutrophils % 84.3 H Seg Neuts % (Manual) Lymphocytes % (Manual) Seg Neutrophils # 11.6 H Seg Neutrophils # Man Lymphocytes # (Manual) APTT 23.5 L POC ABG pCO2 POC ABG pO2 Sodium 133 L Potassium Chloride 89.8 L BUN 78 H Creatinine 8.7 H D Glucose 177 H POC Glucose Magnesium Iron TIBC Ferritin ALT C-Reactive Protein Albumin Crossmatch 08/01/18 08/01/18 08/02/18 18:38 19:56 09:07 WBC RBC Hgb Hct MCV MCH MCHC RDW Lymph % (Auto) [place] % (Auto) Lymph # [place] # Seg Neutrophils % Seg Neuts % (Manual) Lymphocytes % (Manual) Seg Neutrophils # Seg Neutrophils # Man Lymphocytes # (Manual) APTT POC ABG pCO2 48.2 H POC ABG pO2 146 H 125 H Sodium Potassium Chloride BUN Creatinine Glucose POC Glucose Magnesium 2.80 H Iron TIBC Ferritin ALT C-Reactive Protein Albumin Crossmatch 08/02/18 08/02/18 08/02/18 16:22 16:22 17:21 WBC RBC 2.42 L Hgb 8.1 L Hct 22.8 L MCV MCH 34 H MCHC 36 H RDW 15.7 H Lymph % (Auto) [place] % (Auto) Lymph # [place] # Seg Neutrophils % Seg Neuts % (Manual) 94.0 H Lymphocytes % (Manual) 6.0 L Seg Neutrophils # Seg Neutrophils # Man 9.9 H Lymphocytes # (Manual) 0.6 L APTT POC ABG pCO2 POC ABG pO2 Sodium 134 L Potassium Chloride 90.7 L BUN 38 H Creatinine 4.8 H Glucose 175 H POC Glucose 191 H Magnesium Iron TIBC Ferritin ALT < 5 L C-Reactive Protein Albumin 2.9 L Crossmatch 08/03/18 08/03/18 08/03/18 05:19 07:43 07:43 WBC RBC 2.67 L Hgb 8.3 L Hct 24.9 L MCV MCH MCHC RDW 15.6 H Lymph % (Auto) [place] % (Auto) Lymph # [place] # Seg Neutrophils % Seg Neuts % (Manual) Lymphocytes % (Manual) Seg Neutrophils # Seg Neutrophils # Man Lymphocytes # (Manual) APTT POC ABG pCO2 POC ABG pO2 Sodium 134 L Potassium Chloride 89.7 L BUN 52 H Creatinine 5.9 H Glucose 180 H POC Glucose 212 H Magnesium Iron TIBC Ferritin ALT C-Reactive Protein Albumin Crossmatch 08/03/18 08/03/18 08/04/18 12:32 23:42 05:42 WBC RBC Hgb Hct MCV MCH MCHC RDW Lymph % (Auto) [place] % (Auto) Lymph # [place] # Seg Neutrophils % Seg Neuts % (Manual) Lymphocytes % (Manual) Seg Neutrophils # Seg Neutrophils # Man Lymphocytes # (Manual) APTT POC ABG pCO2 POC ABG pO2 Sodium Potassium Chloride BUN Creatinine Glucose POC Glucose 223 H 139 H 151 H Magnesium Iron TIBC Ferritin ALT C-Reactive Protein Albumin Crossmatch 08/04/18 08/04/18 08/04/18 12:11 17:12 20:55 WBC RBC Hgb Hct MCV MCH MCHC RDW Lymph % (Auto) [place] % (Auto) Lymph # [place] # Seg Neutrophils % Seg Neuts % (Manual) Lymphocytes % (Manual) Seg Neutrophils # Seg Neutrophils # Man Lymphocytes # (Manual) APTT POC ABG pCO2 POC ABG pO2 Sodium Potassium Chloride BUN Creatinine Glucose POC Glucose 193 H 137 H 175 H Magnesium Iron TIBC Ferritin ALT C-Reactive Protein Albumin Crossmatch 08/04/18 08/05/18 08/05/18 23:23 05:55 12:03 WBC RBC Hgb Hct MCV MCH MCHC RDW Lymph % (Auto) [place] % (Auto) Lymph # [place] # Seg Neutrophils % Seg Neuts % (Manual) Lymphocytes % (Manual) Seg Neutrophils # Seg Neutrophils # Man Lymphocytes # (Manual) APTT POC ABG pCO2 POC ABG pO2 Sodium Potassium Chloride BUN Creatinine Glucose POC Glucose 165 H 135 H 158 H Magnesium Iron TIBC Ferritin ALT C-Reactive Protein Albumin Crossmatch 08/05/18 08/06/18 08/06/18 23:42 06:05 10:25 WBC 11.8 H RBC 2.61 L Hgb 8.2 L Hct 24.9 L MCV MCH MCHC RDW 15.8 H Lymph % (Auto) [place] % (Auto) Lymph # [place] # Seg Neutrophils % Seg Neuts % (Manual) Lymphocytes % (Manual) Seg Neutrophils # Seg Neutrophils # Man Lymphocytes # (Manual) APTT POC ABG pCO2 POC ABG pO2 Sodium Potassium Chloride BUN Creatinine Glucose POC Glucose 120 H 196 H Magnesium Iron TIBC Ferritin ALT C-Reactive Protein Albumin Crossmatch 08/06/18 08/06/18 08/06/18 10:25 12:31 17:26 WBC RBC Hgb Hct MCV MCH MCHC RDW Lymph % (Auto) [place] % (Auto) Lymph # [place] # Seg Neutrophils % Seg Neuts % (Manual) Lymphocytes % (Manual) Seg Neutrophils # Seg Neutrophils # Man Lymphocytes # (Manual) APTT POC ABG pCO2 POC ABG pO2 Sodium 136 L Potassium 3.3 L D Chloride 93.2 L BUN 32 H Creatinine 4.5 H Glucose 134 H POC Glucose 184 H 174 H Magnesium Iron TIBC Ferritin ALT C-Reactive Protein Albumin Crossmatch 08/07/18 08/07/18 08/07/18 00:32 05:47 11:53 WBC RBC Hgb Hct MCV MCH MCHC RDW Lymph % (Auto) [place] % (Auto) Lymph # [place] # Seg Neutrophils % Seg Neuts % (Manual) Lymphocytes % (Manual) Seg Neutrophils # Seg Neutrophils # Man Lymphocytes # (Manual) APTT POC ABG pCO2 POC ABG pO2 Sodium Potassium Chloride BUN Creatinine Glucose POC Glucose 190 H 203 H 161 H Magnesium Iron TIBC Ferritin ALT C-Reactive Protein Albumin Crossmatch 08/07/18 08/08/18 08/08/18 16:39 00:49 06:41 WBC RBC Hgb Hct MCV MCH MCHC RDW Lymph % (Auto) [place] % (Auto) Lymph # [place] # Seg Neutrophils % Seg Neuts % (Manual) Lymphocytes % (Manual) Seg Neutrophils # Seg Neutrophils # Man Lymphocytes # (Manual) APTT POC ABG pCO2 POC ABG pO2 Sodium Potassium Chloride BUN Creatinine Glucose POC Glucose 217 H 186 H 167 H Magnesium Iron TIBC Ferritin ALT C-Reactive Protein Albumin Crossmatch 08/08/18 08/08/18 08/09/18 13:09 16:49 00:02 WBC RBC Hgb Hct MCV MCH MCHC RDW Lymph % (Auto) [place] % (Auto) Lymph # [place] # Seg Neutrophils % Seg Neuts % (Manual) Lymphocytes % (Manual) Seg Neutrophils # Seg Neutrophils # Man Lymphocytes # (Manual) APTT POC ABG pCO2 POC ABG pO2 Sodium Potassium Chloride BUN Creatinine Glucose POC Glucose 224 H 212 H 188 H Magnesium Iron TIBC Ferritin ALT C-Reactive Protein Albumin Crossmatch 08/09/18 08/09/18 08/09/18 05:35 05:35 05:47 WBC RBC 2.93 L Hgb 9.3 L Hct 27.1 L MCV MCH MCHC RDW 15.7 H Lymph % (Auto) 10.1 L [place] % (Auto) Lymph # 1.0 L [place] # Seg Neutrophils % 83.6 H Seg Neuts % (Manual) Lymphocytes % (Manual) Seg Neutrophils # 8.5 H Seg Neutrophils # Man Lymphocytes # (Manual) APTT POC ABG pCO2 POC ABG pO2 Sodium 135 L Potassium 3.3 L Chloride 93.1 L BUN 39 H Creatinine 5.3 H Glucose 172 H POC Glucose 207 H Magnesium Iron TIBC Ferritin ALT C-Reactive Protein Albumin 2.0 L Crossmatch 08/09/18 08/09/18 08/09/18 11:56 18:30 20:23 WBC RBC Hgb Hct MCV MCH MCHC RDW Lymph % (Auto) [place] % (Auto) Lymph # [place] # Seg Neutrophils % Seg Neuts % (Manual) Lymphocytes % (Manual) Seg Neutrophils # Seg Neutrophils # Man Lymphocytes # (Manual) APTT POC ABG pCO2 POC ABG pO2 Sodium Potassium Chloride BUN Creatinine Glucose POC Glucose 272 H 148 H 197 H Magnesium Iron TIBC Ferritin ALT C-Reactive Protein Albumin Crossmatch 08/10/18 08/10/18 08/10/18 01:09 05:12 05:12 WBC RBC 2.32 L Hgb 7.2 L Hct 21.6 L MCV MCH MCHC RDW 16.1 H Lymph % (Auto) [place] % (Auto) Lymph # [place] # Seg Neutrophils % Seg Neuts % (Manual) Lymphocytes % (Manual) Seg Neutrophils # Seg Neutrophils # Man Lymphocytes # (Manual) APTT POC ABG pCO2 POC ABG pO2 Sodium 133 L Potassium Chloride 90.4 L BUN 57 H Creatinine 6.5 H Glucose 184 H POC Glucose 213 H Magnesium Iron TIBC Ferritin ALT C-Reactive Protein Albumin Crossmatch 08/10/18 08/10/18 08/11/18 06:09 20:30 00:51 WBC RBC Hgb Hct MCV MCH MCHC RDW Lymph % (Auto) [place] % (Auto) Lymph # [place] # Seg Neutrophils % Seg Neuts % (Manual) Lymphocytes % (Manual) Seg Neutrophils # Seg Neutrophils # Man Lymphocytes # (Manual) APTT POC ABG pCO2 POC ABG pO2 Sodium Potassium Chloride BUN Creatinine Glucose POC Glucose 185 H 181 H Magnesium Iron TIBC Ferritin ALT C-Reactive Protein 14.30 H Albumin Crossmatch 08/11/18 08/11/18 08/11/18 05:35 10:22 10:22 WBC RBC Hgb 6.9 L Hct 20.7 L MCV MCH MCHC RDW Lymph % (Auto) [place] % (Auto) Lymph # [place] # Seg Neutrophils % Seg Neuts % (Manual) Lymphocytes % (Manual) Seg Neutrophils # Seg Neutrophils # Man Lymphocytes # (Manual) APTT POC ABG pCO2 POC ABG pO2 Sodium 132 L Potassium Chloride 89.8 L BUN 61 H Creatinine 7.1 H Glucose 187 H POC Glucose 185 H Magnesium Iron TIBC Ferritin ALT C-Reactive Protein Albumin Crossmatch 08/11/18 08/11/18 08/12/18 11:01 17:10 01:35 WBC RBC Hgb Hct MCV MCH MCHC RDW Lymph % (Auto) [place] % (Auto) Lymph # [place] # Seg Neutrophils % Seg Neuts % (Manual) Lymphocytes % (Manual) Seg Neutrophils # Seg Neutrophils # Man Lymphocytes # (Manual) APTT POC ABG pCO2 POC ABG pO2 Sodium Potassium Chloride BUN Creatinine Glucose POC Glucose 197 H 170 H 214 H Magnesium Iron TIBC Ferritin ALT C-Reactive Protein Albumin Crossmatch 08/12/18 08/12/18 08/12/18 05:02 05:09 13:51 WBC RBC 2.20 L Hgb 6.8 L Hct 20.7 L MCV MCH MCHC RDW 16.7 H Lymph % (Auto) 12.8 L [place] % (Auto) 8.8 H Lymph # [place] # 0.9 H Seg Neutrophils % 74.9 H Seg Neuts % (Manual) Lymphocytes % (Manual) Seg Neutrophils # Seg Neutrophils # Man Lymphocytes # (Manual) APTT POC ABG pCO2 POC ABG pO2 Sodium Potassium Chloride BUN Creatinine Glucose POC Glucose 187 H 221 H Magnesium Iron TIBC Ferritin ALT C-Reactive Protein Albumin Crossmatch 08/12/18 08/12/18 08/13/18 16:42 23:33 05:39 WBC RBC Hgb 6.3 L Hct 19.3 L* MCV MCH MCHC RDW Lymph % (Auto) [place] % (Auto) Lymph # [place] # Seg Neutrophils % Seg Neuts % (Manual) Lymphocytes % (Manual) Seg Neutrophils # Seg Neutrophils # Man Lymphocytes # (Manual) APTT POC ABG pCO2 POC ABG pO2 Sodium Potassium Chloride BUN Creatinine Glucose POC Glucose 187 H 236 H Magnesium Iron TIBC Ferritin ALT C-Reactive Protein Albumin Crossmatch 08/13/18 08/13/18 08/13/18 06:47 07:37 11:45 WBC RBC Hgb Hct MCV MCH MCHC RDW Lymph % (Auto) [place] % (Auto) Lymph # [place] # Seg Neutrophils % Seg Neuts % (Manual) Lymphocytes % (Manual) Seg Neutrophils # Seg Neutrophils # Man Lymphocytes # (Manual) APTT POC ABG pCO2 POC ABG pO2 Sodium Potassium Chloride BUN Creatinine Glucose POC Glucose 267 H 255 H Magnesium Iron TIBC Ferritin ALT C-Reactive Protein Albumin Crossmatch See Detail 08/13/18 08/13/18 08/14/18 16:24 23:10 05:13 WBC RBC Hgb Hct MCV MCH MCHC RDW Lymph % (Auto) [place] % (Auto) Lymph # [place] # Seg Neutrophils % Seg Neuts % (Manual) Lymphocytes % (Manual) Seg Neutrophils # Seg Neutrophils # Man Lymphocytes # (Manual) APTT POC ABG pCO2 POC ABG pO2 Sodium Potassium Chloride BUN Creatinine Glucose POC Glucose 150 H 194 H 138 H Magnesium Iron TIBC Ferritin ALT C-Reactive Protein Albumin Crossmatch 08/14/18 08/14/18 08/14/18 07:02 07:02 11:47 WBC 16.0 H RBC 2.55 L Hgb 7.6 L Hct 23.5 L MCV MCH MCHC RDW 17.0 H Lymph % (Auto) [place] % (Auto) Lymph # [place] # Seg Neutrophils % Seg Neuts % (Manual) Lymphocytes % (Manual) Seg Neutrophils # Seg Neutrophils # Man Lymphocytes # (Manual) APTT POC ABG pCO2 POC ABG pO2 Sodium 133 L Potassium Chloride 88.7 L BUN 40 H Creatinine 6.2 H Glucose 204 H POC Glucose 224 H Magnesium Iron TIBC Ferritin ALT C-Reactive Protein Albumin Crossmatch 08/14/18 08/15/18 08/15/18 17:13 00:00 05:32 WBC RBC Hgb Hct MCV MCH MCHC RDW Lymph % (Auto) [place] % (Auto) Lymph # [place] # Seg Neutrophils % Seg Neuts % (Manual) Lymphocytes % (Manual) Seg Neutrophils # Seg Neutrophils # Man Lymphocytes # (Manual) APTT POC ABG pCO2 POC ABG pO2 Sodium Potassium Chloride BUN Creatinine Glucose POC Glucose 152 H 134 H 161 H Magnesium Iron TIBC Ferritin ALT C-Reactive Protein Albumin Crossmatch 08/15/18 08/15/18 08/15/18 06:55 12:23 17:10 WBC RBC Hgb 8.1 L Hct 23.6 L MCV MCH MCHC RDW Lymph % (Auto) [place] % (Auto) Lymph # [place] # Seg Neutrophils % Seg Neuts % (Manual) Lymphocytes % (Manual) Seg Neutrophils # Seg Neutrophils # Man Lymphocytes # (Manual) APTT POC ABG pCO2 POC ABG pO2 Sodium Potassium Chloride BUN Creatinine Glucose POC Glucose 172 H 151 H Magnesium Iron TIBC Ferritin ALT C-Reactive Protein Albumin Crossmatch 08/16/18 08/16/18 08/16/18 00:21 06:39 07:04 WBC 13.4 H RBC 2.82 L Hgb 8.5 L Hct 25.7 L MCV MCH MCHC RDW 16.3 H Lymph % (Auto) 12.1 L [place] % (Auto) Lymph # [place] # 0.9 H Seg Neutrophils % 79.4 H Seg Neuts % (Manual) Lymphocytes % (Manual) Seg Neutrophils # 10.6 H Seg Neutrophils # Man Lymphocytes # (Manual) APTT POC ABG pCO2 POC ABG pO2 Sodium Potassium Chloride BUN Creatinine Glucose POC Glucose 148 H 147 H Magnesium Iron TIBC Ferritin ALT C-Reactive Protein Albumin Crossmatch 08/16/18 08/16/18 08/17/18 11:53 16:29 00:18 WBC RBC Hgb Hct MCV MCH MCHC RDW Lymph % (Auto) [place] % (Auto) Lymph # [place] # Seg Neutrophils % Seg Neuts % (Manual) Lymphocytes % (Manual) Seg Neutrophils # Seg Neutrophils # Man Lymphocytes # (Manual) APTT POC ABG pCO2 POC ABG pO2 Sodium Potassium Chloride BUN Creatinine Glucose POC Glucose 181 H 121 H 173 H Magnesium Iron TIBC Ferritin ALT C-Reactive Protein Albumin Crossmatch 08/17/18 08/17/18 08/17/18 06:51 09:56 10:35 WBC 12.7 H RBC 2.50 L Hgb 7.3 L Hct 22.9 L MCV MCH MCHC RDW 16.4 H Lymph % (Auto) 8.9 L [place] % (Auto) Lymph # 1.1 L [place] # Seg Neutrophils % 84.5 H Seg Neuts % (Manual) Lymphocytes % (Manual) Seg Neutrophils # 10.7 H Seg Neutrophils # Man Lymphocytes # (Manual) APTT POC ABG pCO2 POC ABG pO2 Sodium 136 L Potassium 3.4 L Chloride 93.2 L BUN 35 H Creatinine 6.1 H Glucose 143 H POC Glucose 142 H Magnesium Iron TIBC Ferritin ALT C-Reactive Protein Albumin Crossmatch 08/17/18 08/17/18 08/18/18 14:36 15:48 00:26 WBC RBC Hgb Hct MCV MCH MCHC RDW Lymph % (Auto) [place] % (Auto) Lymph # [place] # Seg Neutrophils % Seg Neuts % (Manual) Lymphocytes % (Manual) Seg Neutrophils # Seg Neutrophils # Man Lymphocytes # (Manual) APTT POC ABG pCO2 POC ABG pO2 Sodium Potassium Chloride BUN Creatinine Glucose POC Glucose 171 H 147 H 156 H Magnesium Iron TIBC Ferritin ALT C-Reactive Protein Albumin Crossmatch 08/18/18 08/18/18 08/18/18 06:23 06:59 06:59 WBC 13.1 H RBC 2.98 L Hgb 9.3 L Hct 27.3 L MCV MCH MCHC RDW 16.7 H Lymph % (Auto) [place] % (Auto) Lymph # [place] # Seg Neutrophils % Seg Neuts % (Manual) Lymphocytes % (Manual) Seg Neutrophils # Seg Neutrophils # Man Lymphocytes # (Manual) APTT POC ABG pCO2 POC ABG pO2 Sodium Potassium Chloride 95.5 L BUN 33 H Creatinine 4.7 H Glucose 117 H POC Glucose 120 H Magnesium Iron 28 L TIBC 153 L Ferritin ALT C-Reactive Protein Albumin Crossmatch 08/18/18 08/18/18 06:59 13:33 WBC RBC Hgb Hct MCV MCH MCHC RDW Lymph % (Auto) [place] % (Auto) Lymph # [place] # Seg Neutrophils % Seg Neuts % (Manual) Lymphocytes % (Manual) Seg Neutrophils # Seg Neutrophils # Man Lymphocytes # (Manual) APTT POC ABG pCO2 POC ABG pO2 Sodium Potassium Chloride BUN Creatinine Glucose POC Glucose 119 H Magnesium Iron TIBC Ferritin 1498.0 H ALT C-Reactive Protein Albumin Crossmatch Allied health notes reviewed: nursing
[2018-08-18 17:11] VITALS: BP 140/75
== END 2018-08-18 17:29 | DRG 853 ==
LOC: ED 10:30 → 3A 19:44 → CC1 08-02 08:15 → 4A 08-03 12:08 → 3A 08-10 16:31
PROVIDERS: ADMIT Internal Medicine; ATTEND Internal Medicine
PROC: 4A033R1 Measurement of Arterial Saturation, Peripheral, Percutaneous Approach (ICD-10-PCS; 2018-08-01)
PROC: 5A1935Z Respiratory Ventilation, Less than 24 Consecutive Hours (ICD-10-PCS; 2018-08-01)
PROC: 0BH17EZ Insertion of Endotracheal Airway into Trachea, Via Natural or Artificial Opening (ICD-10-PCS; 2018-08-01)
PROC: 5A1D70Z Performance of Urinary Filtration, Intermittent, Less than 6 Hours Per Day (ICD-10-PCS; 2018-08-02)
PROC: 5A1D70Z Performance of Urinary Filtration, Intermittent, Less than 6 Hours Per Day (ICD-10-PCS; 2018-08-03)
PROC: 5A1D70Z Performance of Urinary Filtration, Intermittent, Less than 6 Hours Per Day (ICD-10-PCS; 2018-08-05)
PROC: 5A1D70Z Performance of Urinary Filtration, Intermittent, Less than 6 Hours Per Day (ICD-10-PCS; 2018-08-08)
PROC: 05CY3ZZ Extirpation of Matter from Upper Vein, Percutaneous Approach (ICD-10-PCS; principal; 2018-08-10)
PROC: 057Y3ZZ Dilation of Upper Vein, Percutaneous Approach (ICD-10-PCS; 2018-08-10)
PROC: 5A1D70Z Performance of Urinary Filtration, Intermittent, Less than 6 Hours Per Day (ICD-10-PCS; 2018-08-10)
PROC: 0KBP0ZZ Excision of Left Hip Muscle, Open Approach (ICD-10-PCS; 2018-08-11)
PROC: 0KBN0ZZ Excision of Right Hip Muscle, Open Approach (ICD-10-PCS; 2018-08-11)
PROC: 0JH63XZ Insertion of Tunneled Vascular Access Device into Chest Subcutaneous Tissue and Fascia, Percutaneous Approach (ICD-10-PCS; 2018-08-11)
PROC: 02H633Z Insertion of Infusion Device into Right Atrium, Percutaneous Approach (ICD-10-PCS; 2018-08-11)
PROC: B244ZZZ Ultrasonography of Right Heart (ICD-10-PCS; 2018-08-11)
PROC: B2141ZZ Fluoroscopy of Right Heart using Low Osmolar Contrast (ICD-10-PCS; 2018-08-11)
PROC: 5A1D70Z Performance of Urinary Filtration, Intermittent, Less than 6 Hours Per Day (ICD-10-PCS; 2018-08-12)
PROC: 30233N1 Transfusion of Nonautologous Red Blood Cells into Peripheral Vein, Percutaneous Approach (ICD-10-PCS; 2018-08-13)
PROC: 5A1D70Z Performance of Urinary Filtration, Intermittent, Less than 6 Hours Per Day (ICD-10-PCS; 2018-08-15)
PROC: 5A1D70Z Performance of Urinary Filtration, Intermittent, Less than 6 Hours Per Day (ICD-10-PCS; 2018-08-17)
PROC: 02H633Z Insertion of Infusion Device into Right Atrium, Percutaneous Approach (ICD-10-PCS; 2018-08-18)
PROC: B244ZZZ Ultrasonography of Right Heart (ICD-10-PCS; 2018-08-18)
PROC: B2141ZZ Fluoroscopy of Right Heart using Low Osmolar Contrast (ICD-10-PCS; 2018-08-18)
PROC: B5181ZZ Fluoroscopy of Superior Vena Cava using Low Osmolar Contrast (ICD-10-PCS; 2018-08-18)
DX: A41.9 Sepsis, unspecified organism (principal); J69.0 Pneumonitis due to inhalation of food and vomit; L89.154 Pressure ulcer of sacral region, stage 4; J96.21 Acute and chronic respiratory failure with hypoxia; N18.6 End stage renal disease; G92 Toxic encephalopathy; T82.868A Thrombosis due to vascular prosthetic devices, implants and grafts, initial encounter; G93.1 Anoxic brain damage, not elsewhere classified; I13.2 Hypertensive heart and chronic kidney disease with heart failure and with stage 5 chronic kidney disease, or end stage renal disease; I42.9 Cardiomyopathy, unspecified; E11.22 Type 2 diabetes mellitus with diabetic chronic kidney disease; E11.42 Type 2 diabetes mellitus with diabetic polyneuropathy; I50.9 Heart failure, unspecified; I48.91 Unspecified atrial fibrillation; K21.0 Gastro-esophageal reflux disease with esophagitis; D63.8 Anemia in other chronic diseases classified elsewhere; R13.12 Dysphagia, oropharyngeal phase; Z93.0 Tracheostomy status; Z86.73 Personal history of transient ischemic attack (TIA), and cerebral infarction without residual deficits; Z79.4 Long term (current) use of insulin; Z86.718 Personal history of other venous thrombosis and embolism; Z89.412 Acquired absence of left great toe; Z79.899 Other long term (current) drug therapy; Z79.82 Long term (current) use of aspirin; Z95.810 Presence of automatic (implantable) cardiac defibrillator
CPT/HCPCS: 36415; 36558; 36600; 36905; 71045; 74176; 77001; 78580; 80048; 80053; 82728; 82803; 82962; 83036; 83550; 83735; 84134; 85007; 85014; 85018; 85025; 85027; 85610; 85730; 86140; 86850; 86900; 86901; 86920; 87040; 87045; 87070; 87076; 87116; 87186; 87205; 93005; 93010; 94002; 94003; 94640; 94760; G0378; A9540; C1725; C1750; C1751; C1757; C1769; C1894; J0690; J0885; J1170; J1644; J1815; J1956; J2020; J2185; J2250; J2270; J2543; J2920; J3010; J7030; J7040; J7050; P9016; Q9967

== ENCOUNTER 2018-08-19 20:48 | Inpatient (IN) | payer MEDICARE ==
--- NOTE | 2018-08-19 22:01 | Emergency Department Report ---
ED GI Bleed HPI - General Chief complaint: GI Bleed Stated complaint: RECTAL BLEEDING Time Seen by Provider: 08/19/18 21:45 Source: EMS Mode of arrival: Stretcher Limitations: Altered Mental Status, Physical Limitation, Other - History of Present Illness Initial comments: Patient is a 58-year-old female that presents emergency room with complaints of rectal bleeding. Patient denies abdominal pain. Patient was brought in by EMS from her shelter. Patient is a poor historian due to her mentation. [facility] documents reviewed. Patient has multiple past medical histories to include kidney failure, delirium, altered mental status, end-stage renal disease, hypertension, anemia of chronic disease, atrial fibrillation diabetes, CHF with a pacemaker. She does not appear to be on anticoagulants however patient is on aspirin per med list MD complaint: gross hematochezia -: Sudden Quality: painless Improves with: none Worsens with: none Context: history of GI bleed, blood thinners Associated Symptoms: denies other symptoms Treatments Prior to Arrival: none - Related Data Home Medications Medication Instructions Recorded Confirmed Last Taken ALBUTEROL NEB's [Proventil 0.083% 3 ml IH Q4HR 07/26/18 08/01/18 Unknown NEBS] Amiodarone HCl [Pacerone] 200 mg PO DAILY 08/01/18 08/01/18 Unknown Aspirin [Adult Aspirin] 81 mg PO DAILY 08/01/18 08/01/18 Unknown Carvedilol [Coreg] 12.5 mg PO BID 08/01/18 08/01/18 Unknown Famotidine 20 mg PO DAILY 08/01/18 08/01/18 Unknown Gabapentin [Gralise] 30 mg PO QHS 08/01/18 08/01/18 Unknown Lispro Insulin [Humalog] 0 unit SQ TID 08/01/18 08/01/18 Unknown Loperamide [Imodium] 2 mg PO Q6H 08/01/18 08/01/18 Unknown Sevelamer Carbonate [Renvela] 800 mg PO TIDWM 08/01/18 08/01/18 Unknown Zinc Sulfate 220 mg PO DAILY 08/01/18 08/01/18 Unknown Previous Rx's Medication Instructions Recorded Last Taken Type Metoprolol [Lopressor TAB] 25 mg PO BID tablet 07/29/18 Unknown Rx amLODIPine [Norvasc] 5 mg PO QDAY tablet 07/29/18 Unknown Rx Acetaminophen [Acetaminophen TAB] 650 mg PO Q4H PRN #15 tablet 08/09/18 Unknown Rx Midodrine [Proamatine] 10 mg PO BID #60 tablet 08/09/18 Unknown Rx QUEtiapine [SEROquel] 25 mg PO BID@0800,1700 #60 tablet 08/09/18 Unknown Rx QUEtiapine [SEROquel] 50 mg PO QHS #30 tablet 08/09/18 Unknown Rx Simple Syrup 30 ml FEEDTUBE PRN PRN #30 08/09/18 Unknown Rx oral.liqd Sodium Bicarbonate 325 mg FEEDTUBE PRN PRN #30 tablet 08/09/18 Unknown Rx Amiodarone [Cordarone 200 MG TAB] 200 mg PO DAILY tablet 08/18/18 Unknown Rx Aspirin EC [Aspirin Enteric Coated 81 mg PO DAILY tablet 08/18/18 Unknown Rx TAB] Famotidine [Pepcid] 20 mg PO DAILY tablet 08/18/18 Unknown Rx Ipratropium/Albuterol Sulfate 1 ampul IH TIDRT ampul.neb 08/18/18 Unknown Rx [DUONEB *Not for PRN Use*] Linezolid [Zyvox] 600 mg PO Q12HR #34 tablet 08/18/18 Unknown Rx Lipase/Protease/Amylase [Pancreaze 1 each FEEDTUBE PRN PRN capsule 08/18/[address],500 Unit] Loperamide [Imodium] 2 mg PO Q6HR #20 capsule 08/18/18 Unknown Rx Meropenem/Ns 500 mg/50 ml 500 mg IV Q24H #17 bag 08/18/18 Unknown Rx [Merrem/Ns 500 mg/50 ml] Metoprolol [Lopressor TAB] 25 mg PO BID tablet 08/18/18 Unknown Rx Sevelamer Carbonate [Renvela] 800 mg PO TIDWM tablet 08/18/18 Unknown Rx Simple Syrup 30 ml FEEDTUBE PRN PRN oral.liqd 08/18/18 Unknown Rx amLODIPine [Norvasc] 10 mg PO QDAY tablet 08/18/18 Unknown Rx oxyCODONE /ACETAMINOPHEN [Percocet 1 tab PO Q6H PRN #20 tablet 08/18/18 Unknown Rx 5/325 mg] oxyCODONE /ACETAMINOPHEN [Percocet 1 tab PO Q6HR PRN #20 tablet 08/18/18 Unknown Rx 5/325] Allergies Allergy/AdvReac Type Severity Reaction Status Date / Time ondansetron Allergy Anaphylaxis Verified 08/01/18 11:00 sulfamethoxazole Allergy Anaphylaxis Verified 08/01/18 11:00 [From Bactrim] trimethoprim [From Bactrim] Allergy Anaphylaxis Verified 08/01/18 11:00 vancomycin Allergy Anaphylaxis Verified 08/01/18 11:00 ED Review of Systems ROS: Stated complaint: RECTAL BLEEDING Other details as noted in HPI Comment: Unobtainable due to pts medical conditions ED Past Medical Hx - Past Medical History Previous Medical History?: Yes Hx Hypertension: Yes Hx CVA: Yes Hx Congestive Heart Failure: Yes (Pacemaker) Hx Diabetes: Yes Hx Deep Vein Thrombosis: No Hx GERD: Yes Hx Renal Disease: Yes (MWF) Hx Asthma: No Hx COPD: No Additional medical history: Atrial fibrillation, osteomyelitis, left eye bl urriness, anemia, hyperlipidemia - Surgical History Past Surgical History?: Yes Hx Open Heart Surgery: Yes (scar noted) Hx Pacemaker: No Hx Internal Defibrillator: No Additional Surgical History: left great toe amputation, cataract, Tracheostomy - Family History Family history: no significant - Social History Smoking Status: Unknown if ever smoked Substance Use Type: None - Medications Home Medications: Home Medications Medication Instructions Recorded Confirmed Last Taken Type ALBUTEROL NEB's [Proventil 0.083% 3 ml IH Q4HR 07/26/18 08/01/18 Unknown History NEBS] Metoprolol [Lopressor TAB] 25 mg PO BID tablet 07/29/18 08/01/18 Unknown Rx amLODIPine [Norvasc] 5 mg PO QDAY tablet 07/29/18 08/01/18 Unknown Rx Amiodarone HCl [Pacerone] 200 mg PO DAILY 08/01/18 08/01/18 Unknown History Aspirin [Adult Aspirin] 81 mg PO DAILY 08/01/18 08/01/18 Unknown History Carvedilol [Coreg] 12.5 mg PO BID 08/01/18 08/01/18 Unknown History Famotidine 20 mg PO DAILY 08/01/18 08/01/18 Unknown History Gabapentin [Gralise] 30 mg PO QHS 08/01/18 08/01/18 Unknown History Lispro Insulin [Humalog] 0 unit SQ TID 08/01/18 08/01/18 Unknown History Loperamide [Imodium] 2 mg PO Q6H 08/01/18 08/01/18 Unknown History Sevelamer Carbonate [Renvela] 800 mg PO TIDWM 08/01/18 08/01/18 Unknown History Zinc Sulfate 220 mg PO DAILY 08/01/18 08/01/18 Unknown History Acetaminophen [Acetaminophen TAB] 650 mg PO Q4H PRN #15 tablet 08/09/18 Unknown Rx Midodrine [Proamatine] 10 mg PO BID #60 tablet 08/09/18 Unknown Rx QUEtiapine [SEROquel] 25 mg PO BID@0800,1700 #60 tablet 08/09/18 Unknown Rx QUEtiapine [SEROquel] 50 mg PO QHS #30 tablet 08/09/18 Unknown Rx Simple Syrup 30 ml FEEDTUBE PRN PRN #30 08/09/18 Unknown Rx oral.liqd Sodium Bicarbonate 325 mg FEEDTUBE PRN PRN #30 tablet 08/09/18 Unknown Rx Amiodarone [Cordarone 200 MG TAB] 200 mg PO DAILY tablet 08/18/18 Unknown Rx Aspirin EC [Aspirin Enteric Coated 81 mg PO DAILY tablet 08/18/18 Unknown Rx TAB] Famotidine [Pepcid] 20 mg PO DAILY tablet 08/18/18 Unknown Rx Ipratropium/Albuterol Sulfate 1 ampul IH TIDRT ampul.neb 08/18/18 Unknown Rx [DUONEB *Not for PRN Use*] Linezolid [Zyvox] 600 mg PO Q12HR #34 tablet 08/18/18 Unknown Rx Lipase/Protease/Amylase [Pancreaze 1 each FEEDTUBE PRN PRN capsule 08/18/[address],500 Unit] Loperamide [Imodium] 2 mg PO Q6HR #20 capsule 08/18/18 Unknown Rx Meropenem/Ns 500 mg/50 ml 500 mg IV Q24H #17 bag 08/18/18 Unknown Rx [Merrem/Ns 500 mg/50 ml] Metoprolol [Lopressor TAB] 25 mg PO BID tablet 08/18/18 Unknown Rx Sevelamer Carbonate [Renvela] 800 mg PO TIDWM tablet 08/18/18 Unknown Rx Simple Syrup 30 ml FEEDTUBE PRN PRN oral.liqd 08/18/18 Unknown Rx amLODIPine [Norvasc] 10 mg PO QDAY tablet 08/18/18 Unknown Rx oxyCODONE /ACETAMINOPHEN [Percocet 1 tab PO Q6H PRN #20 tablet 08/18/18 Unknown Rx 5/325 mg] oxyCODONE /ACETAMINOPHEN [Percocet 1 tab PO Q6HR PRN #20 tablet 08/18/18 Unkn own Rx 5/325] ED Physical Exam - General Limitations: Altered Mental Status, Other General appearance: alert, in no apparent distress - Head Head exam: Present: atraumatic, normocephalic - Eye Eye exam: Present: normal appearance - ENT ENT exam: Present: mucous membranes moist - Neck Neck exam: Present: normal inspection - Respiratory Respiratory exam: Present: normal lung sounds bilaterally. Absent: respiratory distress - Cardiovascular Cardiovascular Exam: Present: regular rate, normal rhythm. Absent: systolic murmur, diastolic murmur, rubs, gallop - GI/Abdominal GI/Abdominal exam: Present: soft, normal bowel sounds. Absent: distended, tenderness - Extremities Exam Extremities exam: Present: normal inspection - Back Exam Back exam: Present: normal inspection - Neurological Exam Neurological exam: Present: alert, altered (patient is A&OX1. Oriented to person only) - Skin Skin exam: Present: warm, dry, intact, normal color. Absent: rash ED Course Vital Signs 08/19/18 08/19/18 08/19/18 21:17 21:45 22:00 Temperature 98.9 F Pulse Rate 91 H 92 H 88 Respiratory 16 23 24 Rate Blood Pressure 108/79 O2 Sat by Pulse 100 95 98 Oximetry 08/19/18 08/19/18 08/19/18 22:16 22:30 22:45 Temperature Pulse Rate 87 91 H 88 Respiratory 21 20 19 Rate Blood Pressure 124/57 123/59 O2 Sat by Pulse 95 100 97 Oximetry 08/19/18 08/19/18 08/19/18 22:56 23:00 23:15 Temperature Pulse Rate 91 H 87 87 Respiratory 21 19 19 Rate Blood Pressure 123/59 113/59 107/57 O2 Sat by Pulse 98 99 Oximetry 08/19/18 08/19/18 08/20/18 23:30 23:45 00:41 Temperature Pulse Rate 89 87 Respiratory 17 19 Rate Blood Pressure 115/60 108/60 108/60 O2 Sat by Pulse 100 Oximetry 08/20/18 08/20/18 08/20/18 00:45 01:00 01:15 Temperature Pulse Rate 92 H 92 H 92 H Respiratory 17 19 18 Rate Blood Pressure 112/60 112/60 115/63 O2 Sat by Pulse 100 99 Oximetry 08/20/18 08/20/18 08/20/18 01:30 01:45 02:00 Temperature Pulse Rate 91 H 92 H 89 Respiratory 18 20 17 Rate Blood Pressure 112/62 128/70 125/67 O2 Sat by Pulse 98 Oximetry 08/20/18 08/20/18 08/20/18 02:15 02:30 02:45 Temperature Pulse Rate 93 H Respiratory 18 16 18 Rate Blood Pressure 136/71 116/67 123/72 O2 Sat by Pulse 93 99 Oximetry - Reevaluation(s) Reevaluation #1: Initial evaluation done. Patient noted to have bright red blood in her diaper. 08/19/18 21:45 Patient just had another bowel movement and was positive for bright red blood in her diaper again. 08/19/18 22:20 Reevaluation #2: CT is negative for source of bleeding. Patient will be admitted to the hospitalist service. Blood is currently running. Hospitalist to admit patient. GI was already consulted and recommends CTA of the abdomen and pelvis is negative for the patient admitted to the hospitalist service and nothing by mout h after midnight. 08/20/18 01:16 - Consultations Consultation #1: GI consulted. Discussed case with Dr. Polk, GI. Dr. Polk's recommendation R the patient be admitted to the hospitalist service but however prior to that patient needs a CTA of the abdomen and pelvis. Dr. Polk states if the CTA is positive that IRB consulted tonight and if the CTA is negative patient be admitted to the hospitalist service and left nothing by mouth after midnight for a endoscopy in the morning. 08/19/18 22:37 Consultation #2: Hospitalist consult for admission. Hospitalist admit patient and assume care of patient. Bridge orders placed 08/20/18 01:13 ED Medical Decision Making - Lab Data Result diagrams: 08/19/18 21:41 08/19/18 21:41 - Radiology Data Radiology results: report reviewed PROCEDURE: CT ANGIO ABDOMEN PELVIS TECHNIQUE: Computerized axial tomographic angiography of the abdomen was performed after the IV injection of iodinated nonionic contrast. The image data was postprocessed using 2-dimensional multiplanar reformatted (MPR) and 3-dimensional (MIP and/or volume rendered) techniques. CT DOSE LENGTH PRODUCT: mGycm HISTORY: gi bleed. COMPARISONS: None . FINDINGS: Abdominal aorta: There is mild calcified plaque in the abdominal aorta. There is no aneurysm or dissection, stenosis or thrombosis. . Celiac artery: Normal . Superior mesenteric artery: Normal . Left renal artery: Normal . Right renal artery: Normal . Inferior mesenteric artery: Normal . The liver is enlarged and fatty. There is cholelithiasis. There is a percutaneous gastrostomy tube. There is no bowel obstruction, colitis or enteritis. There is no ischemic bowel injury. The appendix is normal. Uterus is atrophic. There is no ascites or free air, abscess or adenopathy. There is no hemoperitoneum or hematoma. IMPRESSION: There is mild calcified plaque in the abdominal aorta. There is no aneurysm or d issection, stenosis or thrombosis. . The mesenteric arterial branches are patent and normal in caliber. There is no evidence of vascular malformation or active arterial extravasation. The liver is enlarged and fatty. There is cholelithiasis. There is a percutaneous gastrostomy tube. There is no bowel obstruction, colitis or enteritis. There is no ischemic bowel injury. The appendix is normal. Uterus is atrophic. There is no ascites or free air, abscess or adenopathy. There is no h emoperitoneum or hematoma. . - Medical Decision Making Patient is a 58-year-old shelter patient who presents to the emergency room for GI bleed. Patient found to be severely anemic with gross bright red blood per rectum. GI consulted and recommendations received from GI. Patient's CTA was negative, so the patient was admitted to the hospitalist service and made nothing by mouth after midnight to prepare the patient for a endoscopy. Patient's chemistry is consistent with chronic kidney disease. Patient had dialysis this morning her to come in to the hospital. Packed red blood cells were started in the ER. Patient was typed and screened. Laboratory results reviewed. CT reviewed. \\ - Differential Diagnosis GI bleed. Critical Care Time: Yes Critical care attestation.: If time is entered above; I have spent that time in minutes in the direct care of this critically ill patient, excluding procedure time. Critical Care Time: 55 minutes ED Disposition Clinical Impression: ESRD needing dialysis, ESRD (end stage renal disease) Altered mental state Qualifiers: Altered mental status type: unspecified Qualified Code(s): R41.82 - Altered mental status, unspecified GI bleed Qualifiers: GI bleed type/associated pathology: anorectal hemorrhage Qualified Code(s): K62.5 - Hemorrhage of anus and rectum Anemia Qualifiers: Anemia type: unspecified type Qualified Code(s): D64.9 - Anemia, unspecified Disposition: 09 OP ADMIT IP TO THIS HOSP Is pt being admited?: Yes Does the pt Need Aspirin: No Condition: Critical Referrals: JERARDO WILD MD [Primary Care Provider] - 3-5 Days Forms: Accompanied Note Time of Disposition: 01:13
[2018-08-19 22:17] LABS: Basophils # (Auto) 0.1 K/mm3 (0.0-0.1); Basophils % (Auto) 0.3 % (0.0-1.8); Eosinophils # (Auto) 0.1 K/mm3 (0.0-0.4); Eosinophils % (Auto) 0.4 % (0.0-4.3); Hematocrit 21.3 % (30.3-42.9); Hemoglobin 7.3 gm/dl (10.1-14.3); Lymphocytes # (Auto) 1.6 K/mm3 (1.2-5.4); Lymphocytes % (Auto) 9.8 % (13.4-35.0); Mean Corpuscular HGB Conc 34 % (30-34); Mean Corpuscular Volume 92 fl (79-97); Monocytes # (Auto) 0.8 K/mm3 (0.0-0.8); Monocytes % (Auto) 4.8 % (0.0-7.3); Platelet Count 367 K/mm3 (140-440); Red Blood Count 2.33 M/mm3 (3.65-5.03); Red Cell Distribution Width 16.7 % (13.2-15.2)
[2018-08-19 22:25] LABS: Calcium 8.2 mg/dL (8.4-10.2)
[2018-08-19] MEDS ORDERED: NACL 0.9% 500 ML 500 ML IV ONE (22:28)
[2018-08-19 23:45] LABS: INR 1.12 (0.87-1.13)
[2018-08-19 23:46] LABS: Partial Thromboplastin Time 29.7 Sec. (24.2-36.6)
--- NOTE | 2018-08-20 01:05 | Cat Scan Report ---
PROCEDURE: CT ANGIO ABDOMEN PELVIS TECHNIQUE: Computerized axial tomographic angiography of the abdomen was performed after the IV inj ection of iodinated nonionic contrast. The image data was postprocessed using 2-dimensional multiplan ar reformatted (MPR) and 3-dimensional (MIP and/or volume rendered) techniques. CT DOSE LENGTH PRODUCT: mGycm HISTORY: gi bleed. COMPARISONS: None . FINDINGS: Abdominal aorta: There is mild calcified plaque in the abdominal aorta. There is no aneurysm or disse ction, stenosis or thrombosis. . Celiac artery: Normal . Superior mesenteric artery: Normal . Left renal artery: Normal . Right renal artery: Normal . Inferior mesenteric artery: Normal . The liver is enlarged and fatty. There is cholelithiasis. There is a percutaneous gastrostomy tube. There is no bowel obstruction, colitis or enteritis. There is no ischemic bowel injury. The appendix is normal. Uterus is atrophic. There is no ascites or free air, abscess or adenopathy. There is no hemoperitoneum or hematoma. IMPRESSION: There is mild calcified plaque in the abdominal aorta. There is no aneurysm or dissection, stenosis o r thrombosis. . The mesenteric arterial branches are patent and normal in caliber. There is no evidence of vascular malformation or active arterial extravasation. The liver is enlarged and fatty. There is cholelithiasis. There is a percutaneous gastrostomy tube. There is no bowel obstruction, colitis or enteritis. There is no ischemic bowel injury. The appendix is normal. Uterus is atrophic. There is no ascites or free air, abscess or adenopathy. There is no hemoperitoneum or hematoma. . This document is electronically signed by Sukhjinder Barrientos MD., August 20 2018 01:02:07 AM ET
[2018-08-20] MEDS ORDERED: NACL 0.9% 500 ML 500 ML ONE ×2 (01:11)
[2018-08-20] MEDS ORDERED: TYLENOL PR PRN (02:25)
[2018-08-20] MEDS: PROTONIX 80 MG in NACL 0.9% 100 ML IV SCH ×3 (02:54→17:15)
[2018-08-20] MEDS ORDERED: KCL 10MEQ/100ML 10 MEQ/100 ML BAG IV ONE (03:42)
[2018-08-20] MEDS: KCL 10MEQ/100ML 10 MEQ/100 ML BAG IV SCH ×3 (03:44→06:33)
[2018-08-20 07:26] LABS: Hemoglobin 7.9 gm/dl (10.1-14.3)
--- NOTE | 2018-08-20 07:43 | History and Physical Report ---
CHIEF COMPLAINT: Rectal bleeding. HISTORY OF PRESENTING ILLNESS: The patient is a 58-year-old female brought in from the alf because of bright red blood through the rectum. There is no history of abdominal pain and the patient is a poor historian because of her medical condition. There is no history of nausea and vomiting and no history of recent intake of nonsteroidal anti-inflammatory agents. There is no intake of alcohol and the patient was presented for evaluation. PAST MEDICAL HISTORY: Pertinent for hypertension, cerebrovascular accident, congestive heart failure, diabetes mellitus, gastroesophageal reflux disease, end-stage renal disease. Also, the patient has past medical history of atrial fibrillation, osteomyelitis, left eye blurry vision, anemia and hyperlipidemia. PAST SURGICAL HISTORY: Pertinent for open heart surgery, left great toe amputation, cataracts, tracheostomy. FAMILY HISTORY: Family history is noncontributory. SOCIAL HISTORY: The patient stays at a alf, does not smoke, does not drink alcohol and does not use illicit drugs. MEDICATIONS: The patient is on albuterol nebulizer every 4 hours. The patient is also on Coreg 12.5 mg by mouth twice daily, gabapentin ____ mg by mouth at bedtime, lispro insulin or Humalog per sliding scale protocol. The patient is also on Imodium 2 mg by mouth every 6 hours, Renvela 800 mg by mouth t.i.d. WM, zinc sulfate 220 mg by mouth daily, Tylenol 650 mg by mouth every 4 hours as needed for fever and headache, midodrine 10 mg by mouth twice daily, Seroquel 25 mg by mouth twice daily, Simple Syrup 30mL p.r.n. Also the patient is on sodium bicarbonate 325 mg per feeding tube p.r.n. The patient is on amiodarone 200 mg daily, aspirin enteric coated 81 mg daily, famotidine or Pepcid 20 mg by mouth daily, ipratropium/albuterol sulfate Duo nebulizer 3 times daily, linezolid or Zyvox 600 mg by mouth every 12 hours, lipase/protease/amylase or Pancreaze one each feeding tube p.r.n., Imodium 2 mg by mouth every 6 hours. The patient was sometime taking meropenem 500 mg in 50mL IV every 24 hours. The patient is also on metoprolol 25 mg by mouth twice daily, amlodipine 10 mg by mouth daily, Percocet 5/325 one by mouth every 6 hours. ALLERGIES: THE PATIENT IS ALLERGIC TO ZOFRAN, SULFA DRUGS, AND VANCOMYCIN. REVIEW OF SYSTEMS: CONSTITUTIONAL: There is no fever, no chills, no diaphoresis. HEENT: There is no headache or sore throat. CARDIOVASCULAR SYSTEM: There is no chest pain or orthopnea. RESPIRATORY SYSTEM: There is no shortness of breath or cough. GASTROINTESTINAL SYSTEM: There is no nausea, no vomiting, no abdominal pain, diarrhea or constipation, but there is hematochezia. NEUROLOGICAL SYSTEM: There is no numbness, no dizziness, no altered mental status. MUSCULOSKELETAL SYSTEM: There is no joint pain or swelling. DERMATOLOGICAL SYSTEM: There is no skin rash or itching. GENITOURINARY SYSTEM: There is no dysuria, hematuria, or flank pain. Rest of system review is normal. PHYSICAL EXAMINATION: GENERAL: At the time of exam, the patient was found to be alert, oriented x 3 and in mild distress due to coughing. VITAL SIGNS: At the initial time of presentation include temperature of 98.9 degrees Fahrenheit, pulse of 91, respirations 16, blood pressure 108/79, O2 sat of 100% on room air. HEENT: Shows pupils to be round, reactive to light and accommodating. Extraocular muscles are intact. NECK: Neck is supple with no JVD or carotid bruit. There is a tracheostomy in the anterior aspect of the neck. CARDIOVASCULAR SYSTEM: Showed normal first and second heart sounds with no gallops or murmurs. RESPIRATORY SYSTEM: Show good air entry on both sides of the lungs with no abnormal breath sounds. GASTROINTESTINAL SYSTEM: Show abdomen to be full, soft, nontender with no organomegaly or rigidity. NEUROLOGICAL: Neuro exam shows no focal deficit. MUSCULOSKELETAL SYSTEM: Show no joint swelling or tenderness. DERMATOLOGICAL SYSTEM: Shows no rash. GENITOURINARY SYSTEM: Showing no costovertebral angle tenderness. PERTINENT LABORATORY DATA AND IMAGING STUDIES: The patient had CT angiogram of the abdomen and pelvis that shows mild calcified plaque in the abdominal aorta with no aneurysm or distention or stenosis or thrombosis found. The mesenteric arterial branch is patent and normal in caliber according to the radiology reading. There is no evidence of vascular malformation or active arterial extravasation. The liver is enlarged and fatty and there is cholelithiasis. There is also percutaneous gastrostomy tube and there is no bowel obstruction, colitis or enteritis. There is also finding of no ischemic bowel injury and the appendix looks normal. There is no ascites or free air, abscess or adenopathy. There is no hemoperitoneum or hematoma found. Lab results; the patient's CBC showed elevated white count of 15,900 with low hemoglobin of 7.3 and low hematocrit of 21.3. The CBC differential show high segmented neutrophil count of 84.7%. This patient's chemistry showed low sodium of 131, low potassium level of 3.1 and low chloride level of 91.4. The patient's BUN level is normal. Creatinine is high with a value of 3.4. The patient's calcium level is also low with a value of 8.2. DIAGNOSES: 1. Gastrointestinal bleed. 2. End-stage renal disease. PLAN OF CARE: 1. The patient will be admitted to telemetry. 2. The patient will continue Gastroenterology consult with Dr. Dru Polk requested by the Emergency Room physician. 3. The patient will be n.p.o. until seen by the meat cooler. 4. The patient will have hemoglobin and hematocrit monitored serially every 6 hours x 3 more levels. 5. The patient will be on IV potassium chloride 10 mEq in 100 mL of normal saline and this will be treated with three doses. 6. The patient will be on I.V Protonix drip. 7. The patient will continue blood transfusion requested by the Emergency Room physician. JOB# [id number] [facility]/ANNE MARIE MTDJeremy
[2018-08-20] MEDS: DILAUDID IV PRN ×2 (08:37→19:38)
--- NOTE | 2018-08-20 13:13 | Consultation ---
REFERRING PHYSICIAN: Trenton Reece MD INDICATION: 1. Rectal bleeding. 2. Anemia. HISTORY OF PRESENT ILLNESS: The patient is a 58-year-old female being seen by GI for rectal bleeding. The patient is a poor historian with a past medical history of kidney disease, delirium as well as hypertension and AFib as well as diabetes and CHF. The patient reportedly had bright red and maroon stools, some mild epigastric pain. She reports no nausea, vomiting. She denies any weight loss. The patient subsequently was brought to the Emergency Room and GI consulted. No other specific problems or complaints. No recent colonoscopy. PAST MEDICAL HISTORY: 1. End-stage renal disease, on dialysis. 2. Hypertension. 3. Anemia. 4. Atrial fibrillation. 5. Congestive heart failure. MEDICATIONS: Reviewed and updated in chart. ALLERGIES: No known drug allergies. SOCIAL HISTORY: Lives in a assisted. FAMILY HISTORY: Negative for colon cancer, IBD, or liver disease. REVIEW OF SYSTEMS: GENERAL: Reports weakness. HEENT: No visual complaints or tinnitus. PULMONARY: No short of breath, no cough, no chest pain. GASTROINTESTINAL: Reports rectal bleeding. All points of 13-point review of systems otherwise negative. PHYSICAL EXAMINATION: VITAL SIGNS: Temperature of 98.4, pulse 92, respirations 20, blood pressure 127/72. GENERAL: Fairly nourished female in no acute distress. HEENT: Pupils equal, round, and reactive. PULMONARY: Clear. CARDIOVASCULAR: Regular rhythm. Normal S1, S2. ABDOMEN: Soft. SKIN: No obvious rashes. LABORATORY DATA: Pertinent for white count of 15, hemoglobin and hematocrit of 7.3 and 21.3, platelet count of 367. Coags within normal limits. Chem-7, sodium of 131, potassium 3.3, chloride 91, CO2 25, BUN and creatinine of 14 and 3.4. ASSESSMENT AND PLAN: A 58-year-old female with multiple past medical history as noted above, now presents with signs of gastrointestinal bleed. PLAN: 1. We will follow hematocrit and transfuse as needed. 2. PPI IV b.i.d. 3. Avoid NSAIDs and aspirin. 4. Plan EGD and colonoscopy in a.m. if stable. JOB# [id number] CAB/NTS
[2018-08-20 15:24] LABS: Hematocrit 24.6 % (30.3-42.9); Hemoglobin 8.1 gm/dl (10.1-14.3)
[2018-08-20] MEDS ORDERED: GOLYTELY PO ONE (18:00)
[2018-08-21] MEDS: PROTONIX 80 MG in NACL 0.9% 100 ML IV SCH (01:25)
[2018-08-21] MEDS: DILAUDID IV PRN (11:28)
--- NOTE | 2018-08-21 14:26 | Event Note ---
Date: 08/20/[address] Perry for GI bleed See H/p in reports GI w/u Recently discharged 2 ti 3 days mike
--- NOTE | 2018-08-21 14:31 | Progress Note ---
Assessment and Plan - Patient Problems (1) GI bleed Current Visit: Yes Status: Acute Qualifiers: GI bleed type/associated pathology: anorectal hemorrhage Qualified Code(s): K62.5 - Hemorrhage of anus and rectum Plan to address problem: w/u for Lower GI bleed (2) ESRD needing dialysis Current Visit: Yes Status: Chronic Plan to address problem: Cont HD (3) HTN (hypertension) Current Visit: No Status: Chronic Qualifiers: Hypertension type: essential hypertension Plan to address problem: Cont catapres patch as necessary (4) Peripheral neuropathy Current Visit: No Status: Chronic Qualifiers: (5) Status post tracheostomy Current Visit: No Status: Chronic Plan to address problem: Tracheostomy site care (6) COPD (chronic obstructive pulmonary disease) Current Visit: Yes Status: Chronic Qualifiers: Emphysema type: unspecified Plan to address problem: Neb tx (7) DVT prophylaxis Current Visit: No Status: Acute Plan to address problem: SCD's Subjective Date of service: 08/21/18 Principal diagnosis: Lower GI Bleed Interval history: As per nursing continues to have lower GI bleed Objective - Constitutional Vitals: Vital Signs - 12hr 08/21/18 08/21/18 08/21/18 04:11 08:00 09:16 Temperature 98.3 F Pulse Rate 99 H 105 H Respiratory 16 20 Rate Blood Pressure 99/24 128/70 O2 Sat by Pulse 100 100 Oximetry O2 Sat by Pulse 100 Oximetry [ Assessment] 08/21/18 08/21/18 08/21/18 09:18 10:00 12:32 Temperature 98.4 F Pulse Rate 104 H Respiratory 20 Rate Blood Pressure 139/62 O2 Sat by Pulse 100 100 Oximetry O2 Sat by Pulse Oximetry [ Assessment] 08/21/18 12:34 Temperature 98.3 F Pulse Rate Respiratory Rate Blood Pressure O2 Sat by Pulse Oximetry O2 Sat by Pulse Oximetry [ Assessment] General appearance: Present: no acute distress, well-nourished - EENT Eyes: PERRL, EOM intact ENT: hearing intact, clear oral mucosa, other (Trach in place) Ears: bilateral: normal - Neck Neck: supple, normal ROM - Respiratory Respiratory effort: normal Respiratory: bilateral: CTA - Breasts Breasts: deferred, normal - Cardiovascular Heart rate: 88 Rhythm: regular Heart Sounds: Present: S1 & S2. Absent: gallop, rub Extremities: pulses intact, No edema, normal color, Full ROM - Gastrointestinal General gastrointestinal: Present: soft, non-tender, non-distended, normal bowel sounds - Genitourinary Female genitourinary: normal - Integumentary Integumentary: clear, warm, dry - Musculoskeletal Musculoskeletal: 1, strength equal bilaterally - Neurologic Neurologic: moves all extremities, other (Cant walk) - Psychiatric Psychiatric: appropriate mood/affect, depressed - Allied health notes Allied health notes reviewed: nursing, case management - Labs CBC & Chem 7: 08/20/18 Unknown 08/19/18 21:41 Labs: Abnormal lab results 08/19/18 08/20/18 Range/Units 21:41 15:15 Hgb 8.1 L (10.1-14.3) gm/dl Hct 24.6 L (30.3-42.9) % Crossmatch See Detail
[2018-08-21] MEDS ORDERED: NACL 0.9% 1000 ML 1,000 ML IV SCH (15:00)
--- NOTE | 2018-08-21 15:32 | Gastroenterology Progress Note ---
Assessment and Plan GI: no further signs bleeding - plan EGD/colon in am - continue other meds and diet Subjective Date of service: 08/21/18 Principal diagnosis: Lower GI Bleed Interval history: - no signs bleeding overnight Objective - Constitutional Vitals: Temp Pulse Resp BP Pulse Ox 98.3 F 104 H 20 139/62 100 08/21/18 12:34 08/21/18 12:32 08/21/18 12:32 08/21/18 12:32 08/21/18 12:32 General appearance: no acute distress - EENT Eyes: PERRL - Respiratory Respiratory: bilateral: CTA - Cardiovascular Rhythm: regular Heart Sounds: Present: S1 & S2 - Gastrointestinal General gastrointestinal: Present: soft, non-tender, non-distended - Labs CBC & Chem 7: 08/20/18 Unknown 08/19/18 21:41 Labs: Laboratory Results - last 24 hr 08/19/18 08/20/18 08/20/18 21:41 15:15 16:39 Hgb 8.1 L Hct 24.6 L POC Glucose 97 Blood Type O POSITIVE Antibody Screen Negative Crossmatch See Detail 08/20/18 08/21/18 23:30 06:20 Hgb Hct POC Glucose 103 105 Blood Type Antibody Screen Crossmatch
[2018-08-21] MEDS: PROTONIX IV SCH ×2 (16:56→21:03)
[2018-08-21] MEDS: KCL 10MEQ/100ML 10 MEQ/100 ML BAG IV SCH ×4 (16:57→22:17)
[2018-08-21] MEDS: DUONEB *Not for PRN Use IH SCH ×2 (17:16→19:53)
[2018-08-21] MEDS: PROVENTIL IH SCH (17:17)
[2018-08-21] MEDS ORDERED: PROVENTIL IH PRN (17:33)
[2018-08-21] MEDS ORDERED: GOLYTELY PO ONE (18:00)
[2018-08-21 19:21] LABS: Calcium 8.7 mg/dL (8.4-10.2)
[2018-08-21 23:52] LABS: Hemoglobin 6.2 gm/dl (10.1-14.3)
[2018-08-21] MEDS ORDERED: NACL 0.9% 500 ML 500 ML IV ONE (23:58)
[2018-08-22 00:11] LABS: Hematocrit 20.1 % (30.3-42.9)
[2018-08-22 06:47] LABS: Hematocrit 22.5 % (30.3-42.9); Hemoglobin 7.4 gm/dl (10.1-14.3)
--- NOTE | 2018-08-22 07:46 | Progress Note ---
Assessment and Plan 1) GI bleed Current Visit: Yes Status: Acute Qualifiers: GI bleed type/associated pathology: anorectal hemorrhage Qualified Code(s): K62.5 - Hemorrhage of anus and rectum Plan to address problem: IV Protonix Hold a gastric feeding via gastric tube GI law firm consultant (2) ESRD needing dialysis Current Visit: Yes Status: Chronic Plan to address problem: Cont HD (3) HTN (hypertension) Current Visit: No Status: Chronic Qualifiers: Hypertension type: essential hypertension Plan to address problem: Cont catapres patch as necessary (4) Peripheral neuropathy Current Visit: No Status: Chronic Qualifiers: (5) Status post tracheostomy Current Visit: No Status: Chronic Plan to address problem: Tracheostomy site care (6) COPD (chronic obstructive pulmonary disease) Current Visit: Yes Status: Chronic Qualifiers: Emphysema type: unspecified Plan to address problem: Neb tx (7) DVT prophylaxis Current Visit: No Status: Acute Plan to address problem: SCD's Subjective Date of service: 08/22/18 Principal diagnosis: Lower GI Bleed Interval history: Patient seen and examined. No hematemesis or melena. Objective - Exam Narrative Exam: Constitutional: Well-nourished well-developed. In no distress Head: Normocephalic atraumatic Eyes: Pupils are equal round and reactive to light Nose: No enlarged turbinates, no septal deviation. Mouth: Moist mucous membranes. Neck: Supple no thyromegaly. No bruit. No JVD Heart: Regular rate and rhythm, S1-S2 normal. No rubs murmurs or gallop Lungs: Clear to auscultation bilaterally. no rales or rhonchi Abdomen: Soft, nontender. Bowel sound are present. Extremities: No edema, no cyanosis, no clubbing. Neuro: Alert oriented Oriented x3. No focal sensory or motor deficit. Skin: No rashes or hyperpigmented spots Musculoskeletal system: No joint pain or swelling Hematological: No petechia or subcutanous hemorrhages. Immunological: No multiple septic spots on the skin Lymphatic: No generalized lymphadenopathy Psychiatry: Euthymic. Calm. - Constitutional Vitals: Vital Signs - 12hr 08/21/18 08/21/18 08/21/18 19:45 22:36 22:40 Temperature Pulse Rate 108 H Pulse Rate [ 102 H Anterior Bilateral Throughout] Respiratory Rate Respiratory 18 Rate [Anterior Bilateral Throughout] Blood Pressure O2 Sat by Pulse 98 Oximetry 08/21/18 08/21/18 08/22/18 23:21 23:36 01:39 Temperature 98.2 F 98.6 F 98.1 F Pulse Rate 116 H 47 L 105 H Pulse Rate [ Anterior Bilateral Throughout] Respiratory 18 16 22 Rate Respiratory Rate [Anterior Bilateral Throughout] Blood Pressure 87/30 145/50 123/43 O2 Sat by Pulse 100 94 97 Oximetry 08/22/18 08/22/18 08/22/18 01:54 02:24 02:54 Temperature 98.0 F 98.2 F 98.1 F Pulse Rate 103 H 104 H 105 H Pulse Rate [ Anterior Bilateral Throughout] Respiratory 22 18 20 Rate Respiratory Rate [Anterior Bilateral Throughout] Blood Pressure 144/57 144/67 144/59 O2 Sat by Pulse Oximetry 08/22/18 08/22/18 03:24 04:05 Temperature 98.3 F 98.7 F Pulse Rate 106 H 104 H Pulse Rate [ Anterior Bilateral Throughout] Respiratory 18 Rate Respiratory Rate [Anterior Bilateral Throughout] Blood Pressure 145/53 146/62 O2 Sat by Pulse 100 Oximetry - Labs CBC & Chem 7: 08/22/18 06:30 08/21/18 18:54 Labs: Abnormal lab results 08/19/18 08/21/18 08/21/18 Range/Units 21:41 18:54 23:42 Hgb 6.2 L (10.1-14.3) gm/dl Hct 20.1 L (30.3-42.9) % Chloride 96.9 L (98-107) mmol/L Carbon Dioxide 20 L (22-30) mmol/L BUN 26 H (7-17) mg/dL Creatinine 6.1 H D (0.7-1.2) mg/dL Crossmatch See Detail 08/22/18 Range/Units 06:30 Hgb 7.4 L (10.1-14.3) gm/dl Hct 22.5 L (30.3-42.9) % Chloride (98-107) mmol/L Carbon Dioxide (22-30) mmol/L BUN (7-17) mg/dL Creatinine (0.7-1.2) mg/dL Crossmatch
[2018-08-22] MEDS: DILAUDID IV PRN ×3 (08:05→20:07)
[2018-08-22] MEDS: DUONEB *Not for PRN Use IH SCH ×4 (08:44→19:25)
--- NOTE | 2018-08-22 09:41 | Consultation ---
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 Unable to obtain history from patient and there was no family member at bedside. Information was mostly obtained from previous documentation. Patient was discharged from this facility on Jul 21 and the patient came back to the ER the following day. Hb dropped to 6.2 yesterday. Patient was admitted for further evaluation of GI bleed and followed by GI. Nephrology was consulted for further evaluation and treatment. Past History Past Medical History: anemia, diabetes, dialysis, ESRD, hypertension, stroke Medications and Allergies Allergies Allergy/AdvReac Type Severity Reaction Status Date / Time ondansetron Allergy Anaphylaxis Verified 08/01/18 11:00 sulfamethoxazole Allergy Anaphylaxis Verified 08/01/18 11:00 [From Bactrim] trimethoprim [From Bactrim] Allergy Anaphylaxis Verified 08/01/18 11:00 vancomycin Allergy Anaphylaxis Verified 08/01/18 11:00 Home Medications Medication Instructions Recorded Confirmed Last Taken Type ALBUTEROL NEB's [Proventil 0.083% 3 ml IH Q4HR 07/26/18 08/20/18 08/19/18 History NEBS] Metoprolol [Lopressor TAB] 25 mg PO BID tablet 07/29/18 08/20/18 08/19/18 Rx amLODIPine [Norvasc] 5 mg PO QDAY tablet 07/29/18 08/20/18 08/19/18 Rx Amiodarone HCl [Pacerone] 200 mg PO DAILY 08/01/18 08/20/18 08/19/18 History Aspirin [Adult Aspirin] 81 mg PO DAILY 08/01/18 08/20/18 08/19/18 History Carvedilol [Coreg] 12.5 mg PO BID 08/01/18 08/20/18 08/19/18 History Famotidine 20 mg PO DAILY 08/01/18 08/20/18 08/19/18 History Gabapentin [Gralise] 30 mg PO QHS 08/01/18 08/20/18 08/19/18 History Lispro Insulin [Humalog] 0 unit SQ TID 08/01/18 08/20/18 08/19/18 History Loperamide [Imodium] 2 mg PO Q6H 08/01/18 08/20/18 08/19/18 History Sevelamer Carbonate [Renvela] 800 mg PO TIDWM 08/01/18 08/20/18 08/19/18 History Zinc Sulfate 220 mg PO DAILY 08/01/18 08/20/18 08/19/18 History Acetaminophen [Acetaminophen TAB] 650 mg PO Q4H PRN #15 tablet 08/09/18 08/20/18 08/19/18 Rx Midodrine [Proamatine] 10 mg PO BID #60 tablet 08/09/18 08/20/18 08/19/18 Rx QUEtiapine [SEROquel] 25 mg PO BID@0800,1700 #60 tablet 08/09/18 08/20/18 08/19/18 Rx QUEtiapine [SEROquel] 50 mg PO QHS #30 tablet 08/09/18 08/20/18 08/19/18 Rx Simple Syrup 30 ml FEEDTUBE PRN PRN #30 08/09/18 08/20/18 08/19/18 Rx oral.liqd Sodium Bicarbonate 325 mg FEEDTUBE PRN PRN #30 tablet 08/09/18 08/20/18 08/19/18 Rx Amiodarone [Cordarone 200 MG TAB] 200 mg PO DAILY tablet 08/18/18 08/20/18 08/19/18 Rx Aspirin EC [Aspirin Enteric Coated 81 mg PO DAILY tablet 08/18/18 08/20/18 08/19/18 Rx TAB] Famotidine [Pepcid] 20 mg PO DAILY tablet 08/18/18 08/20/18 08/19/18 Rx Ipratropium/Albuterol Sulfate 1 ampul IH TIDRT ampul.neb 08/18/18 08/20/18 08/19/18 Rx [DUONEB *Not for PRN Use*] Linezolid [Zyvox] 600 mg PO Q12HR #34 tablet 08/18/18 08/20/18 08/19/18 Rx Lipase/Protease/Amylase [Pancreaze 1 each FEEDTUBE PRN PRN capsule 08/18/18 08/20/18 08/19/18 Rx 10,500 Unit] Loperamide [Imodium] 2 mg PO Q6HR #20 capsule 08/18/18 08/20/18 08/19/18 Rx Meropenem/Ns 500 mg/50 ml 500 mg IV Q24H #17 bag 08/18/18 08/20/18 08/19/18 Rx [Merrem/Ns 500 mg/50 ml] Metoprolol [Lopressor TAB] 25 mg PO BID tablet 08/18/18 08/20/18 08/19/18 Rx Sevelamer Carbonate [Renvela] 800 mg PO TIDWM tablet 08/18/18 08/20/18 08/19/18 Rx Simple Syrup 30 ml FEEDTUBE PRN PRN oral.liqd 08/18/18 08/20/18 08/19/18 Rx amLODIPine [Norvasc] 10 mg PO QDAY tablet 08/18/18 08/20/18 08/19/18 Rx oxyCODONE /ACETAMINOPHEN [Percocet 1 tab PO Q6H PRN #20 tablet 08/18/18 08/20/18 08/19/18 Rx 5/325 mg] oxyCODONE /ACETAMINOPHEN [Percocet 1 tab PO Q6HR PRN #20 tablet 08/18/18 08/20/18 08/19/18 Rx 5/325] Active Meds: Active Medications Acetaminophen (Tylenol) 650 mg MI Q4H PRN PRN Reason: Fever >101 Albuterol (Proventil) 2.5 mg IH Q4HR PRN PRN Reason: Shortness Of Breath Albuterol/Ipratropium (Duoneb *Not For Prn Use*) 1 ampul IH QIDRT [facility] Last Admin: 08/22/18 08:44 Dose: 1 ampul Documented by: Amiodarone HCl (Cordarone) 200 mg PO DAILY [facility] Clonidine HCl (Catapres-Tts Patch) 0.1 mg TD Perdue [facility] Hydromorphone HCl (Dilaudid) 1 mg IV Q3H PRN PRN Reason: Pain , Severe (7-10) Last Admin: 08/21/18 11:28 Dose: 1 mg Documented by: Pantoprazole Sodium 80 mg/ (Sodium Chloride) 100 mls @ 10 mls/hr IV DIRECT SERENITY Last Admin: 08/21/18 01:25 Dose: 8 mg/hr, 10 mls/hr Documented by: Sodium Chloride (Nacl 0.9% 1000 Ml) 1,000 mls @ 75 mls/hr IV DIRECT SERENITY Pantoprazole Sodium (Protonix) 40 mg IV BID [facility] Last Admin: 08/21/18 21:03 Dose: 40 mg Documented by: Review of Systems ROS unobtainable: due to mental status Exam - Vital Signs Vital signs: Vital Signs Temp Pulse Resp BP Pulse Ox 98.9 F 91 H 16 108/79 100 08/19/18 21:17 08/19/18 21:17 08/19/18 21:17 08/19/18 21:17 08/19/18 21:17 - General Appearance General appearance: well-developed, appears stated age, other (not in distress, left IJ tunnel catheter) EENT: ATNC Neck: Present: Other (Trached, on T-piece) Respiratory: Clear to Ascultation Heart: regular, S1S2, no murmurs Gastrointestinal: Present: normoactive bowel sounds, other (PEG tube noted). Absent: tenderness, distended Integumentary: no rash Neurologic: other (not following any command, non-verbal) Musculoskeletal: Present: other (no edema, left medial 2 toes are amputated) Results - Lab Results 08/22/18 13:55 08/21/18 18:54 Most recent lab results Calcium 8.7 mg/dL (8.4-10.2) 08/21/18 18:54 Assessment and Plan 1. ESRD: Continue hemodialysis three times a week, MWF schedule. HD today. 2. GI bleed: Scheduled to get Colonoscopy and EGD today. Followed by GI. 3. Anemia: S/p PRBC. Epogen with HD. 4. Respiratory failure: Trached, on T-piece. 5. Hypertension: Monitor BP. 6. H/o Cardiac arrest. 7. H/o CVA. 8. Anoxic encephalopathy.
[2018-08-22] MEDS ORDERED: PROCRIT SUB-Q PRN (11:03)
[2018-08-22] MEDS ORDERED: NACL 0.9% 100 ML IV PRN (11:03)
[2018-08-22] MEDS: PROTONIX IV SCH ×2 (11:49→23:30)
[2018-08-22] MEDS: CORDARONE PO SCH (11:49)
[2018-08-22] MEDS ORDERED: FERRLECIT 125 MG in NACL 0.9% 100 ML IV ONE (12:00)
[2018-08-22 14:07] LABS: Hematocrit 21.2 % (30.3-42.9); Hemoglobin 7.1 gm/dl (10.1-14.3)
--- NOTE | 2018-08-22 14:12 | Anesthesia Day of Surgery ---
Anesthesia Day of Surgery - Day of Surgery Patient Examined: Yes Patient H&P Reviewed: Yes Patient is NPO: Yes Beta Blockers: Yes
--- NOTE | 2018-08-22 14:18 | Anesthesia Consultation ---
Anesthesia Consult and Med Hx Date of service: 08/22/18 - Airway Anesthetic Teeth Evaluation: Good ROM Head & Neck: Adequate Mental/Hyoid Distance: Adequate Mallampati Class: Class I Intubation Access Assessment: Probably Good - Pulmonary Exam CTA: No - Cardiac Exam Cardiac Exam: No Murmur - Pre-Operative Health Status ASA Pre-Surgery Classification: ASA4 Proposed Anesthetic Plan: MAC - Pulmonary Hx Asthma: No COPD: No Hx Pneumonia: Yes - Cardiovascular System Hx Hypertension: Yes Hx Pacemaker: Yes Hx Internal Defibrillator: No - Central Nervous System CVA: Yes - Gastrointestinal Hx Gastroesophageal Reflux Disease: Yes - Endocrine Hx Renal Disease: Yes (MWF) Hx End Stage Renal Disease: Yes Hx Insulin Dependent Diabetes: Yes - Other Systems Hx Obesity: Yes
[2018-08-22] MEDS ORDERED: WATER FOR IRRIG STERILE IR ONE (14:26)
[2018-08-22] MEDS: NACL 0.9% 1000 ML 1,000 ML IV SCH ×2 (14:30→20:06)
[2018-08-22] MEDS ORDERED: DIPRIVAN 10 MG/ML IV ONE (14:37)
[2018-08-22] MEDS ORDERED: VERSED ONE (14:37)
--- NOTE | 2018-08-22 15:14 | Post Operative Note ---
Pre-op diagnosis: gi bleed Post-op diagnosis: same Findings: EGD: hiatal hernia - mild gastritis - negative other Colon: moderate inflammation with segmental ulcers and pigmented areas caecum No intervention performed -old blood colon - negative other Procedure: EGD/colon Anesthesia: MAC Surgeon: JOSIAH DÍAZ Estimated blood loss: none Pathology: list Specimen disposition: to lab Condition: stable Disposition: floor
--- NOTE | 2018-08-22 15:48 | Operative Report ---
PROCEDURE: EGD. INDICATION: 1. Anemia. 2. GI bleed. MEDICATIONS: Propofol per HEATER HELPER FORGE. COMPLICATIONS: None. DESCRIPTION OF PROCEDURE: The patient was brought to procedure suite. The patient had the procedure discussed with her at length. All risks, complications, and benefits were discussed, which the patient signed for the procedure performed. The patient was placed in left lateral decubitus position. Mouth block was placed in the patient's oral cavity. After adequate sedation medication as above, endoscope was introduced into the mouth and brought to the level of the second portion of duodenum. Retroflexion view performed. The patient's vital signs remained stable throughout. FINDINGS: There was a small hiatal hernia at GE junction at 37 cm from the gums. The esophagus otherwise appeared to be normal. Mild gastritis noted in the stomach. The stomach otherwise appeared to be normal. Duodenum appeared to be normal. Retroflexion view performed in the stomach showed no other pathology other than noted above. The patient tolerated the procedure well. No complications during the procedure. IMPRESSION: 1. Hiatal hernia. 2. Mild gastritis. 3. Otherwise, normal EGD. RECOMMENDATIONS: 1. Follow labs. 2. Colonoscopy to follow. 3. Further recommendation based on colonoscopy results. JOSIAH DÍAZ MD ([id number]) JOB# [id number] CAB/NTS
--- NOTE | 2018-08-22 18:33 | Operative Report ---
INDICATION: 1. Rectal bleeding. 2. Anemia. MEDICATIONS: Propofol per CHANGE DIRECTOR. COMPLICATIONS: None. DESCRIPTION OF PROCEDURE: The patient brought to procedure suite. The patient had the procedure discussed with her at length. All risks, complications, and benefits discussed, which the patient signed for the procedure performed. The patient was placed in left lateral decubitus position. Rectal exam performed prior to insertion of the scope. After adequate sedation medication as above, scope was inserted and into the rectum and brought to the level of cecum. Ileocecal valve, appendicle orifice, cecal strap were visualized. Colonoscope was then removed and mucosa of colon visualized. Prep quality for this procedure was fair. The patient's vital signs remained stable throughout the procedure. FINDINGS: There was noted to be in the cecum white based ulcers. There was noted to be mildly inflamed with ulcerated mucosa. Some of it, which was white base noted in the cecum. The ulcers were approximately 1 to 1.5 cm and approximately 3 with some erythema and inflammation also noted in the area. This may have been the source of bleeding as some pigmented area spots were noted, which now appeared to be healing. Given that these areas were flattened out and no stigmata of bleeding requiring, intervention was done. No further interventions were performed. Given the inflammation and also that this was the cecum, no biopsies were taken of the area. The remaining colon showed some old blood, but otherwise no signs of bleeding. Retroflexion view performed in the rectum showing internal hemorrhoids. The patient tolerated the procedure well. No complications during the procedure. IMPRESSION: Ulcerated inflamed cecum with pigmented areas, but now with signs of healing. Appeared more consistent with possible mild ischemic colitis. Given the area of involvement, no biopsies or interventions were performed. IMPRESSION: 1. Old blood in colon. 2. Otherwise, benign procedure. RECOMMENDATIONS: 1. We will start Levaquin and Flagyl IV, with a course of 7 days to be completed. 2. Soft diet, advance as tolerated. 3. If H and H stable in a.m., okay to discharge. JOB# [id number] [facility]
[2018-08-22] MEDS ORDERED: NACL 0.9 (PRIMING MACHINE ONLY DIALYSIS) MC ONE (19:08)
[2018-08-22] MEDS: LEVAQUIN 500MG/100ML 500 MG/100 ML BAG IV SCH (20:06)
[2018-08-22 22:09] LABS: Hemoglobin 6.8 gm/dl (10.1-14.3)
[2018-08-22 22:15] LABS: Hematocrit 19.9 % (30.3-42.9)
[2018-08-22] MEDS ORDERED: NACL 0.9% 500 ML 500 ML IV ONE (22:31)
[2018-08-23 06:01] LABS: Basophils % (Auto) 0.4 % (0.0-1.8); Eosinophils # (Auto) 0.1 K/mm3 (0.0-0.4); Eosinophils % (Auto) 1.1 % (0.0-4.3); Hematocrit 22.8 % (30.3-42.9); Hemoglobin 7.6 gm/dl (10.1-14.3); Lymphocytes # (Auto) 0.9 K/mm3 (1.2-5.4); Mean Corpuscular HGB Conc 34 % (30-34); Mean Corpuscular Volume 90 fl (79-97); Monocytes # (Auto) 0.7 K/mm3 (0.0-0.8); Monocytes % (Auto) 6.6 % (0.0-7.3); Platelet Count 297 K/mm3 (140-440); Red Blood Count 2.53 M/mm3 (3.65-5.03); Red Cell Distribution Width 15.6 % (13.2-15.2)
[2018-08-23 06:49] LABS: Albumin 2.4 g/dL (3.9-5); BUN/Creatinine Ratio 3; Blood Urea Nitrogen 12 mg/dL (7-17); Calcium 7.8 mg/dL (8.4-10.2); Hemolysis Index 3
[2018-08-23 06:52] LABS: Alanine Aminotransferase < 5 units/L (7-56)
[2018-08-23] MEDS: DUONEB *Not for PRN Use IH SCH ×2 (08:27→12:57)
--- NOTE | 2018-08-23 09:29 | Discharge Summary ---
Providers - Providers Date of Admission: 08/20/18 01:15 Date of discharge: 08/23/18 Attending physician: JOHN CRAIG MD 08/19/18 23:54 Consult to Physician [CONS] Routine Comment: Dr. Moreno spoke with Dr. Polk @ [id number] Consulting Provider: JOSIAH POLK Physician Instructions: Reason For Exam: gi bleed 08/20/18 05:27 Consult to Wound/ET Nurse [CONS] Urgent Reason For Exam: wound eval 08/21/18 14:33 Consult to Physician [CONS] Routine Comment: Consulting Provider: FLORIDA PARKS Physician Instructions: Reason For Exam: esrd [facility] Reason for admission: symptomatic anemia, rectal bleeding, gastritis Condition: Stable Pertinent studies: EGD showed mild gastritis Hospital course: Admission H/P Patient is a 58-year-old female that presents emergency room with complaints of rectal bleeding. Patient denies abdominal pain. Patient was brought in by EMS from her group home. Patient is a poor historian due to her mentation and trach. [facility] documents reviewed. Patient has multiple past medical histories to include kidney failure, delirium, altered mental status, end-stage renal disease, hypertension, anemia of chronic disease, atrial fibrillation diabetes, CHF with a pacemaker. Patient was admitted and worked up for anemia and GI bleed. Patient was transfused with 1 unit of packed RBC and posttransfusion hemoglobin was 7.6. Patient was evaluated by GI and EGD was done and showed mild gastritis and GI cleared for discharge. Patient is on IV meropenem and Zyvox ordered by ID by her recent admission and advised to continue. Patient was hemodynamically stable bleeding after admission. Patient discharged back to group home. Disposition: [id number]/TX-[id number] [facility] Time spent for discharge: 32 minutes - Discharge Diagnoses (1) Gastritis Status: Acute (2) Anemia Status: Acute Qualifiers: Anemia type: unspecified type Qualified Code(s): D64.9 - Anemia, unspecified (3) GI bleed Status: Acute Qualifiers: GI bleed type/associated pathology: anorectal hemorrhage Qualified Code(s): K62.5 - Hemorrhage of anus and rectum (4) COPD (chronic obstructive pulmonary disease) Status: Chronic Qualifiers: Emphysema type: unspecified (5) ESRD (end stage renal disease) Status: Chronic Core Measure Documentation - Palliative Care Palliative Care/ Comfort Measures: Not Applicable - Core Measures Any of the following diagnoses?: none Exam - Physical Exam Narrative exam: Patient is on trach The patient is obese. Vital signs as documented. Head exam is unremarkable. No scleral icterus . Neck is without jugular venous distension, thyromegaly, or carotid bruits. Lungs are clear to auscultation. Cardiac exam reveals regular rate and Rhythm. First and second heart sounds normal. No murmurs, rubs or gallops. Abdominal exam reveals normal bowel sounds, no masses, no organomegaly and no aortic enlargement. Extremities are nonedematous and both femoral and pedal pulses are normal. Patient has decubitus ulcer present on admission FREIGHT INSPECTOR: Alert and oriented 3. No focal weakness. - Constitutional Vitals: Temp Pulse Resp BP Pulse Ox 98.2 F 106 H 18 116/61 100 08/23/18 08:48 08/23/18 08:48 08/23/18 08:48 08/23/18 08:48 08/23/18 08:48 Plan Activity: advance as tolerated Weight Bearing Status: Weight Bear as Tolerated Diet: low salt, renal Follow up with: JERARDO WILD MD [Primary Care Provider] - 3-5 Days Forms: Accompanied Note
--- NOTE | 2018-08-23 09:45 | Progress Note ---
Assessment and Plan 1. ESRD: Continue hemodialysis three times a week, MWF schedule. 2. GI bleed: S/p Colonoscopy and EGD yesterday. EGD: hiatal hernia and mild gastritis. Colonoscopy: moderate inflammation with segmental ulcers and pigmented areas in caecum Followed by GI. 3. Anemia: S/p PRBC. Epogen with HD. 4. Respiratory failure: Trached, on T-piece. 5. Hypertension: Monitor BP. 6. H/o Cardiac arrest. 7. H/o CVA. 8. Anoxic encephalopathy. Subjective Date of service: 08/23/18 Principal diagnosis: Lower GI Bleed Interval history: Patient was seen and examined at the bedside. Objective - Vital Signs Vital signs: Vital Signs - 12hr 08/22/18 08/22/18 08/22/18 23:06 23:33 23:35 Temperature 97.3 F L Pulse Rate 65 107 H Pulse Rate [ Anterior Bilateral Throughout] Respiratory 20 20 20 Rate Respiratory Rate [Anterior Bilateral Throughout] Blood Pressure 123/65 125/63 125/63 O2 Sat by Pulse 99 Oximetry 08/22/18 08/22/18 08/23/18 23:50 23:52 00:24 Temperature 97.6 F Pulse Rate 105 H Pulse Rate [ Anterior Bilateral Throughout] Respiratory 20 20 20 Rate Respiratory Rate [Anterior Bilateral Throughout] Blood Pressure 124/64 124/64 128/62 O2 Sat by Pulse Oximetry 08/23/18 08/23/18 08/23/18 00:49 00:50 00:56 Temperature 97.5 F L 97.4 F L Pulse Rate 111 H 106 H Pulse Rate [ Anterior Bilateral Throughout] Respiratory 20 20 20 Rate Respiratory Rate [Anterior Bilateral Throughout] Blood Pressure 146/77 130/67 130/67 O2 Sat by Pulse Oximetry 08/23/18 08/23/18 08/23/18 01:23 01:46 01:49 Temperature 97.7 F Pulse Rate 106 H Pulse Rate [ Anterior Bilateral Throughout] Respiratory 20 20 20 Rate Respiratory Rate [Anterior Bilateral Throughout] Blood Pressure 146/77 133/70 O2 Sat by Pulse Oximetry 08/23/18 08/23/18 08/23/18 01:50 02:29 04:20 Temperature 97.5 F L 98.0 F Pulse Rate 105 H 105 H Pulse Rate [ Anterior Bilateral Throughout] Respiratory 20 20 18 Rate Respiratory Rate [Anterior Bilateral Throughout] Blood Pressure 134/72 133/71 132/65 O2 Sat by Pulse 100 Oximetry 08/23/18 08/23/18 08/23/18 08:29 08:40 08:48 Temperature 98.2 F Pulse Rate 105 H Pulse Rate [ 104 H 106 H Anterior Bilateral Throughout] Respiratory 20 Rate Respiratory 16 18 Rate [Anterior Bilateral Throughout] Blood Pressure 116/61 O2 Sat by Pulse 100 100 Oximetry - General Appearance General appearance: well-developed, appears stated age, other (not in distress, left IJ tunnel catheter) EENT: ATNC Neck: other (Trached, on T-piece) Respiratory: Present: Clear to Ascultation Cardiology: regular, S1S2, no murmurs Gastrointestinal: normoactive bowel sounds, no tenderness, no distended, other (PEG tube noted) Integumentary: no rash, warm and dry Neurologic: other (opens eyes, nodding head at times, not following command) Musculoskeletal: other (no edema, left foot medial 2 toes amputated) - Lab 08/23/18 04:51 08/23/18 04:51 Most recent lab results Calcium 7.8 mg/dL (8.4-10.2) L 08/23/18 04:51 Phosphorus 3.00 mg/dL (2.5-4.5) 08/23/18 04:51 Magnesium 1.70 mg/dL (1.7-2.3) 08/23/18 04:51 Medications & Allergies - Medications Allergies/Adverse Reactions: Allergies ondansetron Allergy (Verified 08/01/18 11:00) Anaphylaxis sulfamethoxazole [From Bactrim] Allergy (Verified 08/01/18 11:00) Anaphylaxis trimethoprim [From Bactrim] Allergy (Verified 08/01/18 11:00) Anaphylaxis vancomycin Allergy (Verified 08/01/18 11:00) Anaphylaxis Home Medications: Home Medications Medication Instructions Recorded Confirmed Last Taken Type ALBUTEROL NEB's [Proventil 0.083% 3 ml IH Q4HR 07/26/18 08/20/18 08/19/18 History NEBS] Metoprolol [Lopressor TAB] 25 mg PO BID tablet 07/29/18 08/20/18 08/19/18 Rx amLODIPine [Norvasc] 5 mg PO QDAY tablet 07/29/18 08/20/18 08/19/18 Rx Amiodarone HCl [Pacerone] 200 mg PO DAILY 08/01/18 08/20/18 08/19/18 History Aspirin [Adult Aspirin] 81 mg PO DAILY 08/01/18 08/20/18 08/19/18 History Carvedilol [Coreg] 12.5 mg PO BID 08/01/18 08/20/18 08/19/18 History Famotidine 20 mg PO DAILY 08/01/18 08/20/18 08/19/18 History Gabapentin [Gralise] 30 mg PO QHS 08/01/18 08/20/18 08/19/18 History Lispro Insulin [Humalog] 0 unit SQ TID 08/01/18 08/20/18 08/19/18 History Loperamide [Imodium] 2 mg PO Q6H 08/01/18 08/20/18 08/19/18 History Sevelamer Carbonate [Renvela] 800 mg PO TIDWM 08/01/18 08/20/18 08/19/18 History Zinc Sulfate 220 mg PO DAILY 08/01/18 08/20/18 08/19/18 History Acetaminophen [Acetaminophen TAB] 650 mg PO Q4H PRN #15 tablet 08/09/18 08/20/18 08/19/18 Rx Midodrine [Proamatine] 10 mg PO BID #60 tablet 08/09/18 08/20/18 08/19/18 Rx QUEtiapine [SEROquel] 25 mg PO BID@0800,1700 #60 tablet 08/09/18 08/20/18 08/19/18 Rx QUEtiapine [SEROquel] 50 mg PO QHS #30 tablet 08/09/18 08/20/18 08/19/18 Rx Simple Syrup 30 ml FEEDTUBE PRN PRN #30 08/09/18 08/20/18 08/19/18 Rx oral.liqd Sodium Bicarbonate 325 mg FEEDTUBE PRN PRN #30 tablet 08/09/18 08/20/18 08/19/18 Rx Amiodarone [Cordarone 200 MG TAB] 200 mg PO DAILY tablet 08/18/18 08/20/18 08/19/18 Rx Aspirin EC [Aspirin Enteric Coated 81 mg PO DAILY tablet 08/18/18 08/20/18 08/19/18 Rx TAB] Famotidine [Pepcid] 20 mg PO DAILY tablet 08/18/18 08/20/18 08/19/18 Rx Ipratropium/Albuterol Sulfate 1 ampul IH TIDRT ampul.neb 08/18/18 08/20/18 08/19/18 Rx [DUONEB *Not for PRN Use*] Linezolid [Zyvox] 600 mg PO Q12HR #34 tablet 08/18/18 08/20/18 08/19/18 Rx Lipase/Protease/Amylase [Pancreaze 1 each FEEDTUBE PRN PRN capsule 08/18/18 08/20/18 08/19/18 Rx 10,500 Unit] Loperamide [Imodium] 2 mg PO Q6HR #20 capsule 08/18/18 08/20/18 08/19/18 Rx Meropenem/Ns 500 mg/50 ml 500 mg IV Q24H #17 bag 08/18/18 08/20/18 08/19/18 Rx [Merrem/Ns 500 mg/50 ml] Metoprolol [Lopressor TAB] 25 mg PO BID tablet 08/18/18 08/20/18 08/19/18 Rx Sevelamer Carbonate [Renvela] 800 mg PO TIDWM tablet 08/18/18 08/20/18 08/19/18 Rx Simple Syrup 30 ml FEEDTUBE PRN PRN oral.liqd 08/18/18 08/20/18 08/19/18 Rx amLODIPine [Norvasc] 10 mg PO QDAY tablet 08/18/18 08/20/18 08/19/18 Rx oxyCODONE /ACETAMINOPHEN [Percocet 1 tab PO Q6H PRN #20 tablet 08/18/18 08/20/18 08/19/18 Rx 5/325 mg] oxyCODONE /ACETAMINOPHEN [Percocet 1 tab PO Q6HR PRN #20 tablet 08/18/1803/0208/19/18 Rx 5/325 mg] Active Medications: Generic Name Dose Route Start Last Admin Trade Name Freq PRN Reason Stop Dose Admin Acetaminophen 650 mg 08/20/18 02:25 Tylenol SC Q4H PRN Fever >101 Albuterol 2.5 mg 08/21/18 17:33 Proventil IH Q4HR PRN Shortness Of Breath Albuterol/Ipratropium 1 ampul 08/21/18 16:00 08/23/18 08:27 Duoneb *Not For Prn Use* IH 1 ampul QIDRT SERENITY Administration Amiodarone HCl 200 mg 08/22/18 10:00 08/22/18 11:49 Cordarone PO 200 mg DAILY SERENITY Administration Clonidine HCl 0.1 mg 08/28/18 10:00 Catapres-Tts Patch TD Perdue SERENITY Epoetin Ebka 20,000 unit 08/22/18 11:03 08/22/18 19:30 Procrit SUB-Q 20,000 unit ANJANA PRN Administration hemodialysis Hydromorphone HCl 1 mg 08/20/18 08:03 08/22/18 20:07 Dilaudid IV 1 mg Q3H PRN Administration Pain , Severe (7-10) Sodium Chloride 100 mls @ 999 mls/hr 08/22/18 11:03 Nacl 0.9% IV ANJANA PRN Hypotension Sodium Chloride 1,000 mls @ 50 mls/hr 08/22/18 13:00 08/22/18 20:06 Nacl 0.9% 1000 Ml IV 50 mls/hr DIRECT SERENITY Administration Levofloxacin/Dextrose 500 mg in 100 mls @ 100 mls/hr 08/22/18 16:00 08/22/18 20:06 Levaquin 500mg/100ml IV 100 mls/hr Q24HR SERENITY Administration Protocol Pantoprazole Sodium 40 mg 08/21/18 15:00 08/22/18 23:30 Protonix IV 40 mg BID SERENITY Administration
[2018-08-23] MEDS: LEVAQUIN 500MG/100ML 500 MG/100 ML BAG IV SCH (10:57)
[2018-08-23] MEDS: CORDARONE PO SCH (10:57)
[2018-08-23] MEDS: PROTONIX IV SCH (10:58)
[2018-08-23] MEDS: DILAUDID IV PRN (11:16)
[2018-08-23 11:27] VITALS: BP 150/76
--- NOTE | 2018-08-23 12:52 | Gastroenterology Progress Note ---
Assessment and Plan 1.LGIB -H/H 7.6/22.8- stable s/p transfusion PRBCs -continue to monitor H/H and transfuse as needed -no active signs of bleeding overnight or this am -s/p EGD/colonoscopy yesterday that showed a hiatal hernia, mild gastritis, and moderate inflammation with segmental ulcers and pigmented areas in cecum with old blood -clinically, patient is stable with no abd pain or N/V. -continue antibiotics (levaquin/flagyl) x 7 days -continue supportive care -patient okay to be d/c per GI standpoint on antibiotics with f/u in clinic ~2-3 weeks -will sign off, please call if needed Subjective Date of service: 08/23/18 Principal diagnosis: Lower GI Bleed Interval history: No active signs of bleeding overnight or this am. Denies abd pain or N/V. Objective - Constitutional Vitals: Temp Pulse Resp BP Pulse Ox 98.9 F 104 H 20 150/76 100 08/23/18 11:24 08/23/18 10:00 08/23/18 11:24 08/23/18 11:24 08/23/18 08:48 General appearance: no acute distress - EENT ENT: other (+trach) - Respiratory Respiratory: bilateral: CTA (anterior) - Cardiovascular Rhythm: other (tachycardia) - Gastrointestinal General gastrointestinal: Present: soft, non-tender, non-distended, normal bowel sounds - Labs CBC & Chem 7: 08/23/18 04:51 08/23/18 04:51 Labs: Laboratory Results - last 24 hr 08/19/18 08/22/18 08/22/18 21:41 08:21 13:55 WBC RBC Hgb 7.1 L Hct 21.2 L MCV MCH MCHC RDW Plt Count Lymph % (Auto) [place] % (Auto) Eos % (Auto) Baso % (Auto) Lymph # [place] # Eos # Baso # Seg Neutrophils % Seg Neutrophils # Sodium Potassium Chloride Carbon Dioxide Anion Gap BUN Creatinine Estimated GFR BUN/Creatinine Ratio Glucose Calcium Phosphorus Magnesium Total Bilirubin AST ALT Alkaline Phosphatase Total Protein Albumin Albumin/Globulin Ratio Blood Type O POSITIVE Antibody Screen Negative Crossmatch See Detail See Detail 08/22/18 08/23/18 08/23/18 21:36 04:51 04:51 WBC 10.3 RBC 2.53 L Hgb 6.8 L 7.6 L Hct 19.9 L* 22.8 L MCV 90 MCH 30 MCHC 34 RDW 15.6 H Plt Count 297 Lymph % (Auto) 9.0 L [place] % (Auto) 6.6 Eos % (Auto) 1.1 Baso % (Auto) 0.4 Lymph # 0.9 L [place] # 0.7 Eos # 0.1 Baso # 0.0 Seg Neutrophils % 82.9 H Seg Neutrophils # 8.5 H Sodium 143 Potassium 3.8 Chloride 102.0 Carbon Dioxide 23 Anion Gap 22 BUN 12 Creatinine 4.1 H Estimated GFR 14 BUN/Creatinine Ratio 3 Glucose 97 Calcium 7.8 L Phosphorus 3.00 Magnesium 1.70 Total Bilirubin 0.20 AST 11 ALT < 5 L Alkaline Phosphatase 72 Total Protein 5.9 L Albumin 2.4 L Albumin/Globulin Ratio 0.7 Blood Type Antibody Screen Crossmatch
[2018-08-23] MEDS ORDERED: FLAGYL 500 MG/100 ML 500 MG/100 ML BAG IV SCH (14:00)
[2018-08-23] MEDS ORDERED: PROTONIX PO SCH (22:00)
[2018-08-25] MEDS ORDERED: LEVAQUIN 500MG/100ML 500 MG/100 ML BAG IV SCH (10:00)
[2018-08-28] MEDS ORDERED: CATAPRES-TTS PATCH TD SCH (10:00)
== END 2018-08-23 13:40 | DRG 393 ==
LOC: ED 20:48 → 4A 08-20 01:15
PROVIDERS: ADMIT Internal Medicine; ATTEND Internal Medicine
PROC: 30233N1 Transfusion of Nonautologous Red Blood Cells into Peripheral Vein, Percutaneous Approach (ICD-10-PCS; 2018-08-20)
PROC: 0DJD8ZZ Inspection of Lower Intestinal Tract, Via Natural or Artificial Opening Endoscopic (ICD-10-PCS; principal; 2018-08-22)
PROC: 0DJ08ZZ Inspection of Upper Intestinal Tract, Via Natural or Artificial Opening Endoscopic (ICD-10-PCS; 2018-08-22)
PROC: 5A1D70Z Performance of Urinary Filtration, Intermittent, Less than 6 Hours Per Day (ICD-10-PCS; 2018-08-22)
DX: K63.3 Ulcer of intestine (principal); N18.6 End stage renal disease; J96.90 Respiratory failure, unspecified, unspecified whether with hypoxia or hypercapnia; G93.1 Anoxic brain damage, not elsewhere classified; I13.2 Hypertensive heart and chronic kidney disease with heart failure and with stage 5 chronic kidney disease, or end stage renal disease; I50.9 Heart failure, unspecified; K21.9 Gastro-esophageal reflux disease without esophagitis; E11.22 Type 2 diabetes mellitus with diabetic chronic kidney disease; E66.9 Obesity, unspecified; K64.8 Other hemorrhoids; D63.1 Anemia in chronic kidney disease; I48.91 Unspecified atrial fibrillation; E11.42 Type 2 diabetes mellitus with diabetic polyneuropathy; J44.9 Chronic obstructive pulmonary disease, unspecified; K44.9 Diaphragmatic hernia without obstruction or gangrene; K29.70 Gastritis, unspecified, without bleeding; Z86.73 Personal history of transient ischemic attack (TIA), and cerebral infarction without residual deficits; Z88.1 Allergy status to other antibiotic agents; Z88.2 Allergy status to sulfonamides; Z88.8 Allergy status to other drugs, medicaments and biological substances; Z99.2 Dependence on renal dialysis; Z79.51 Long term (current) use of inhaled steroids; Z79.82 Long term (current) use of aspirin; Z79.899 Other long term (current) drug therapy; Z93.0 Tracheostomy status; Z93.1 Gastrostomy status; Z89.412 Acquired absence of left great toe; Z95.0 Presence of cardiac pacemaker; Z68.30 Body mass index [BMI] 30.0-30.9, adult
CPT/HCPCS: 36415; 36430; 74174; 80048; 80053; 82962; 83735; 84100; 85014; 85018; 85025; 85610; 85730; 86850; 86900; 86901; 86920; 94640; 94760; G0378; C9113; J0885; J1170; J1956; J2250; J2704; J2916; J3480; J7030; J7040; P9016; Q9967

== ENCOUNTER 2018-08-28 15:55 | Inpatient (IN) | payer MEDICARE ==
[2018-08-28] MEDS ORDERED: CORDARONE 150 MG in D5W 100 ML IV ONE (16:10)
[2018-08-28 16:47] LABS: Hematocrit 21.3 % (30.3-42.9); Hemoglobin 6.6 gm/dl (10.1-14.3); Mean Corpuscular HGB Conc 31 % (30-34); Mean Corpuscular Volume 96 fl (79-97); Platelet Count 296 K/mm3 (140-440); Red Blood Count 2.21 M/mm3 (3.65-5.03); Red Cell Distribution Width 17.5 % (13.2-15.2)
[2018-08-28] MEDS ORDERED: NACL 0.9% 1000 ML 1,000 ML ONE (16:52)
[2018-08-28 16:53] LABS: Albumin 2.1 g/dL (3.9-5); Calcium 8.8 mg/dL (8.4-10.2)
[2018-08-28] MEDS ORDERED: NACL 0.9% 1000 ML 1,000 ML IV ONE (16:56)
[2018-08-28] MEDS ORDERED: ADRENALIN 8 MG in NACL 0.9% 250ML 242 ML IV ONE (16:56)
[2018-08-28] MEDS ORDERED: CORDARONE 900 MG in D5W 482 ML IV SCH (17:00)
[2018-08-28] MEDS ORDERED: HumuLIN R IV ONE (17:01)
[2018-08-28] MEDS ORDERED: D50W (25GM) Vial IV ONE (17:01)
[2018-08-28] MEDS ORDERED: NACL 0.9% 500 ML 500 ML IV ONE (17:05)
[2018-08-28 17:25] LABS: INR 1.17 (0.87-1.13)
[2018-08-28 17:26] LABS: Partial Thromboplastin Time 33.7 Sec. (24.2-36.6)
--- NOTE | 2018-08-28 17:32 | XRay Report ---
PROCEDURE: XR CHEST 1V AP TECHNIQUE: One view HISTORY: s/p cardiac arrest COMPARISONS: 08/09/2018 FINDINGS: The endotracheal tube ends 3.3 cm above the hollie. Dual lumen left central vascular catheter ends at the right atrium. The left arm PICC ends at the SVC. Right pacemaker noted. Median sternotomy and prosthetic heart valve. Cardiac silhouette is stable. There are bilateral perihilar airspace opacities. No discernible pleural effusion or pneumothorax. IMPRESSION: Tubes and lines in place. Bilateral perihilar opacities. This document is electronically signed by Macario Toro MD., August 28 2018 05:30:41 PM ET
[2018-08-28 17:40] LABS: Chol/HDL Ratio 2.93 %
[2018-08-28 17:51] LABS: Band Neutrophils # (Manual) 0.3 K/mm3; Basophils % (Manual) 0 % (0.0-1.8); Myelocytes # (Manual) 0.2 K/mm3; Total Cells Counted 100
[2018-08-28 17:52] LABS: Anisocytosis 1+; Hypochromasia 1+; Ovalocytes Few; Platelet Estimate Consistent w Auto; Poikilocytosis Few
[2018-08-28] MEDS ORDERED: D50W (25GM) Syringe IV ONE (18:00)
--- NOTE | 2018-08-28 18:06 | Emergency Department Report ---
ED CPR HPI - General Chief Complaint: Cardiac Arrest/CPR Stated Complaint: CARDIAC ARREST Time Seen by Provider: 08/28/18 16:05 Source: EMS, old records reviewed Mode of arrival: Stretcher Limitations: Altered Mental Status - History of Present Illness Initial Comments: 88-year-old [place] [facility] with an extensive past medical history presents to the hospital with cardiac arrest. Patient was apparently undergoing physical [facility] the [facility] when she developed cardiac arrest. She received 2 defibrillations from AED prior to EMS arrival. Patient was in V. fib upon EMS arrival and she was advanced and defibrillation with return of spontaneous circulation. Upon arrival patient is unresponsive, receiving oxygenation via Ambu bag through tracheostomy to and patient is also noted to have a vas cath for dialysis, PEG tube, and PICC line. Patient has had 2 recent extensive hospitalizations and has been hospitalized pretty much since the beginning of July (see medical records). Family also reported that she has had several recent cardiac arrests. Patient undergoes dialysis Wednesday, Wednesday, and Wednesday. - Related Data Home Medications Medication Instructions Recorded Confirmed Last Taken ALBUTEROL NEB's [Proventil 0.083% 3 ml IH Q4HR 07/26/18 08/20/18 08/19/18 NEBS] Amiodarone HCl [Pacerone] 200 mg PO DAILY 08/01/18 08/20/18 08/19/18 Aspirin [Adult Aspirin] 81 mg PO DAILY 08/01/18 08/20/18 08/19/18 Carvedilol [Coreg] 12.5 mg PO BID 08/01/18 08/20/18 08/19/18 Famotidine 20 mg PO DAILY 08/01/18 08/20/18 08/19/18 Gabapentin [Gralise] 30 mg PO QHS 08/01/18 08/20/18 08/19/18 Lispro Insulin [Humalog] 0 unit SQ TID 08/01/18 08/20/18 08/19/18 Loperamide [Imodium] 2 mg PO Q6H 08/01/18 08/20/18 08/19/18 Sevelamer Carbonate [Renvela] 800 mg PO TIDWM 08/01/18 08/20/18 08/19/18 Zinc Sulfate 220 mg PO DAILY 08/01/18 08/20/18 08/19/18 Previous Rx's Medication Instructions Recorded Last Taken Type Metoprolol [Lopressor TAB] 25 mg PO BID tablet 07/29/18 08/19/18 Rx amLODIPine [Norvasc] 5 mg PO QDAY tablet 07/29/18 08/19/18 Rx Acetaminophen [Acetaminophen TAB] 650 mg PO Q4H PRN #15 tablet 08/09/18 08/19/18 Rx Midodrine [Proamatine] 10 mg PO BID #60 tablet 08/09/18 08/19/18 Rx QUEtiapine [SEROquel] 25 mg PO BID@0800,1700 #60 tablet 08/09/18 08/19/18 Rx QUEtiapine [SEROquel] 50 mg PO QHS #30 tablet 08/09/18 08/19/18 Rx Simple Syrup 30 ml FEEDTUBE PRN PRN #30 08/09/18 08/19/18 Rx oral.liqd Sodium Bicarbonate 325 mg FEEDTUBE PRN PRN #30 tablet 08/09/18 08/19/18 Rx Amiodarone [Cordarone 200 MG TAB] 200 mg PO DAILY tablet 08/18/18 08/19/18 Rx Aspirin EC [Aspirin Enteric Coated 81 mg PO DAILY tablet 08/18/18 08/19/18 Rx TAB] Famotidine [Pepcid] 20 mg PO DAILY tablet 08/18/18 08/19/18 Rx Ipratropium/Albuterol Sulfate 1 ampul IH TIDRT ampul.neb 08/18/18 08/19/18 Rx [DUONEB *Not for PRN Use*] Linezolid [Zyvox] 600 mg PO Q12HR #34 tablet 08/18/18 08/19/18 Rx Lipase/Protease/Amylase [Pancreaze 1 each FEEDTUBE PRN PRN capsule 08/18/18 08/19/[address] 10,500 Unit] Loperamide [Imodium] 2 mg PO Q6HR #20 capsule 08/18/18 08/19/18 Rx Meropenem/Ns 500 mg/50 ml 500 mg IV Q24H #17 bag 08/18/18 08/19/18 Rx [Merrem/Ns 500 mg/50 ml] Metoprolol [Lopressor TAB] 25 mg PO BID tablet 08/18/18 08/19/18 Rx Sevelamer Carbonate [Renvela] 800 mg PO TIDWM tablet 08/18/18 08/19/18 Rx Simple Syrup 30 ml FEEDTUBE PRN PRN oral.liqd 08/18/18 08/19/18 Rx amLODIPine [Norvasc] 10 mg PO QDAY tablet 08/18/18 08/19/18 Rx oxyCODONE /ACETAMINOPHEN [Percocet 1 tab PO Q6H PRN #20 tablet 08/18/18 08/19/18 Rx 5/325 mg] oxyCODONE /ACETAMINOPHEN [Percocet 1 tab PO Q6HR PRN #20 tablet 08/18/18 08/19/18 Rx 5/325 mg] Allergies Allergy/AdvReac Type Severity Reaction Status Date / Time ondansetron Allergy Anaphylaxis Verified 08/01/18 11:00 sulfamethoxazole Allergy Anaphylaxis Verified 08/01/18 11:00 [From Bactrim] trimethoprim [From Bactrim] Allergy Anaphylaxis Verified 08/01/18 11:00 vancomycin Allergy Anaphylaxis Verified 08/01/18 11:00 ED Review of Systems ROS: Stated complaint: CARDIAC ARREST Other details as noted in HPI Comment: Unobtainable due to pts medical conditions ED Past Medical Hx - Past Medical History Hx Hypertension: Yes Hx CVA: Yes Hx Congestive Heart Failure: Yes (Pacemaker) Hx Diabetes: Yes Hx Deep Vein Thrombosis: No Hx GERD: Yes Hx Renal Disease: Yes (MWF) Hx Asthma: No Hx COPD: No Additional medical history: Atrial fibrillation, osteomyelitis, left eye blurriness, anemia, hyperlipidemia - Surgical History Hx Open Heart Surgery: Yes (scar noted) Hx Pacemaker: Yes Hx Internal Defibrillator: No Additional Surgical History: left great toe amputation, cataract, Tracheostomy - Social History Smoking Status: Unknown if ever smoked - Medications Home Medications: Home Medications Medication Instructions Recorded Confirmed Last Taken Type ALBUTEROL NEB's [Proventil 0.083% 3 ml IH Q4HR 07/26/18 08/20/18 08/19/18 History NEBS] Metoprolol [Lopressor TAB] 25 mg PO BID tablet 07/29/18 08/20/18 08/19/18 Rx amLODIPine [Norvasc] 5 mg PO QDAY tablet 07/29/18 08/20/18 08/19/18 Rx Amiodarone HCl [Pacerone] 200 mg PO DAILY 08/01/18 08/20/18 08/19/18 History Aspirin [Adult Aspirin] 81 mg PO DAILY 08/01/18 08/20/18 08/19/18 History Carvedilol [Coreg] 12.5 mg PO BID 08/01/18 08/20/18 08/19/18 History Famotidine 20 mg PO DAILY 08/01/18 08/20/18 08/19/18 History Gabapentin [Gralise] 30 mg PO QHS 08/01/18 08/20/18 08/19/18 History Lispro Insulin [Humalog] 0 unit SQ TID 08/01/18 08/20/18 08/19/18 History Loperamide [Imodium] 2 mg PO Q6H 08/01/18 08/20/18 08/19/18 History Sevelamer Carbonate [Renvela] 800 mg PO TIDWM 08/01/18 08/20/18 08/19/18 History Zinc Sulfate 220 mg PO DAILY 08/01/18 08/20/18 08/19/18 History Acetaminophen [Acetaminophen TAB] 650 mg PO Q4H PRN #15 tablet 08/09/18 08/20/18 08/19/18 Rx Midodrine [Proamatine] 10 mg PO BID #60 tablet 08/09/18 08/20/18 08/19/18 Rx QUEtiapine [SEROquel] 25 mg PO BID@0800,1700 #60 tablet 08/09/18 08/20/18 08/19/18 Rx QUEtiapine [SEROquel] 50 mg PO QHS #30 tablet 08/09/18 08/20/18 08/19/18 Rx Simple Syrup 30 ml FEEDTUBE PRN PRN #30 08/09/18 08/20/18 08/19/18 Rx oral.liqd Sodium Bicarbonate 325 mg FEEDTUBE PRN PRN #30 tablet 08/09/18 08/20/18 08/19/18 Rx Amiodarone [Cordarone 200 MG TAB] 200 mg PO DAILY tablet 08/18/18 08/20/18 08/19/18 Rx Aspirin EC [Aspirin Enteric Coated 81 mg PO DAILY tablet 08/18/18 08/20/18 08/19/18 Rx TAB] Famotidine [Pepcid] 20 mg PO DAILY tablet 08/18/18 08/20/18 08/19/18 Rx Ipratropium/Albuterol Sulfate 1 ampul IH TIDRT ampul.neb 08/18/18 08/20/18 Rx [DUONEB *Not for PRN Use*] Linezolid [Zyvox] 600 mg PO Q12HR #34 tablet 08/18/18 08/20/18 08/19/18 Rx Lipase/Protease/Amylase [Pancreaze 1 each FEEDTUBE PRN PRN capsule 08/18/18 0 08/20/18 08/19/[address] 10,500 Unit] Loperamide [Imodium] 2 mg PO Q6HR #20 capsule 08/18/18 08/20/18 08/19/18 Rx Meropenem/Ns 500 mg/50 ml 500 mg IV Q24H #17 bag 08/18/18 08/20/18 08/19/18 Rx [Merrem/Ns 500 mg/50 ml] Metoprolol [Lopressor TAB] 25 mg PO BID tablet 08/18/18 08/20/18 08/19/18 Rx Sevelamer Carbonate [Renvela] 800 mg PO TIDWM tablet 08/18/18 08/20/18 08/19/18 Rx Simple Syrup 30 ml FEEDTUBE PRN PRN oral.liqd 08/18/18 08/20/18 08/19/18 Rx amLODIPine [Norvasc] 10 mg PO QDAY tablet 08/18/18 08/20/18 08/19/18 Rx oxyCODONE /ACETAMINOPHEN [Percocet 1 tab PO Q6H PRN #20 tablet 08/18/18 08/20/18 08/19/18 Rx 5/325 mg] oxyCODONE /ACETAMINOPHEN [Percocet 1 tab PO Q6HR PRN #20 tablet 08/18/18 08/20/18 08/19/18 Rx 5/325 mg] ED Physical Exam - General Limitations: Altered Mental Status - Other Other exam information: General: No limitations, patient is alert in no acute distress Head exam: Atraumatic Eyes exam: Pupils are responsive to light ENT: Moist mucous membrane, normal oropharynx Neck exam: Tracheostomy Respiratory exam: No spontaneous respirations, bagging and progress Cardiovascular: Regular rate and rhythm. 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 ED Course Vital Signs 08/28/18 08/28/18 08/28/18 16:07 16:25 16:36 Temperature Pulse Rate 60 60 Respiratory 20 14 Rate Blood Pressure 106/57 Blood Pressure 46/25 [Right] O2 Sat by Pulse 100 98 100 Oximetry 08/28/18 08/28/18 08/28/18 17:00 17:34 17:51 Temperature 97.6 F Pulse Rate 60 61 61 Respiratory 14 20 20 Rate Blood Pressure Blood Pressure 46/24 52/34 58/34 [Right] O2 Sat by Pulse 100 100 99 Oximetry 08/28/18 08/28/18 08/28/18 17:52 18:15 18:30 Temperature 97.9 F Pulse Rate 60 60 Respiratory 20 20 Rate Blood Pressure Blood Pressure 85/47 68/43 [Right] O2 Sat by Pulse 97 100 Oximetry ED Medical Decision Making - Lab Data Result diagrams: 08/28/18 16:24 08/28/18 16:24 Lab Results 08/28/18 08/28/18 08/28/18 Range/Units 16:24 16:24 16:24 WBC 15.1 H (4.5-11.0) K/mm3 RBC 2.21 L (3.65-5.03) M/mm3 Hgb 6.6 L (10.1-14.3) gm/dl Hct 21.3 L (30.3-42.9) % MCV 96 (79-97) fl MCH 30 (28-32) pg MCHC 31 (30-34) % RDW 17.5 H (13.2-15.2) % Plt Count 296 (140-440) K/mm3 Add Manual Diff Complete Total Counted 100 Seg Neuts % (Manual) 67.0 (40.0-70.0) % Band Neutrophils % 2.0 % Lymphocytes % (Manual) 25.0 (13.4-35.0) % Reactive Lymphs % (Man) 0 % Monocytes % (Manual) 3.0 (0.0-7.3) % Eosinophils % (Manual) 1.0 (0.0-4.3) % Basophils % (Manual) 0 (0.0-1.8) % Metamyelocytes % 1.0 % Myelocytes % 1.0 % Promyelocytes % 0 % Blast Cells % 0 % Nucleated RBC % Not Reportable Seg Neutrophils # Man 10.1 H (1.8-7.7) K/mm3 Band Neutrophils # 0.3 K/mm3 Lymphocytes # (Manual) 3.8 (1.2-5.4) K/mm3 Abs React Lymphs (Man) 0.0 K/mm3 Monocytes # (Manual) 0.5 (0.0-0.8) K/mm3 Eosinophils # (Manual) 0.2 (0.0-0.4) K/mm3 Basophils # (Manual) 0.0 (0.0-0.1) K/mm3 Metamyelocytes # 0.2 K/mm3 Myelocytes # 0.2 K/mm3 Promyelocytes # 0.0 K/mm3 Blast Cells # 0.0 K/mm3 WBC Morphology Not Reportable Hypersegmented Neuts Not Reportable Hyposegmented Neuts Not Reportable Hypogranular Neuts Not Reportable Smudge Cells Not Reportable Toxic Granulation Not Reportable Toxic Vacuolation Not Reportable Dohle Bodies Not Reportable Pelger-Huet Anomaly Not Reportable Evelina Rods Not Reportable Platelet Estimate Consistent w auto Clumped Platelets Not Reportable Plt Clumps, EDTA Not Reportable Large Platelets Not Reportable Giant Platelets Not Reportable Platelet Satelliting Not Reportable Plt Morphology Comment Not Reportable RBC Morphology Not Reportable Dimorphic RBCs Not Reportable Polychromasia Not Reportable Hypochromasia 1+ Poikilocytosis Few Anisocytosis 1+ Microcytosis 1+ Macrocytosis Not Reportable Spherocytes Not Reportable Pappenheimer Bodies Not Reportable Sickle Cells Not Reportable Target Cells Not Reportable Tear Drop Cells Not Reportable Ovalocytes Few Helmet Cells Not Reportable [place] Bodies Not Reportable Helm Rings Not Reportable [place] Cells Not Reportable Bite Cells Not Reportable Crenated Cell Not Reportable Elliptocytes Not Reportable Acanthocytes (Spur) Not Reportable Rouleaux Not Reportable Hemoglobin C Crystals Not Reportable Schistocytes Not Reportable Malaria parasites Not Reportable Abraham Bodies Not Reportable Hem Pathologist Commnt No PT 15.7 H (12.2-14.9) Sec. INR 1.17 H (0.87-1.13) APTT 33.7 (24.2-36.6) Sec. POC ABG pH (7.35-7.45) POC ABG pCO2 (35-45) POC ABG HCO3 (22-26 mml/L) POC ABG Total CO2 (23-27mmol/L) POC ABG O2 Sat POC ABG Base Excess ((-2) - (+3)mmol/L) VBG pH (7.320-7.420) FiO2 % Sodium 128 L (137-145) mmol/L Potassium 5.7 H (3.6-5.0) mmol/L Chloride 90.5 L (98-107) mmol/L Carbon Dioxide 18 L (22-30) mmol/L Anion Gap 25 mmol/L BUN 30 H (7-17) mg/dL Creatinine 5.3 H (0.7-1.2) mg/dL Estimated GFR 10 ml/min BUN/Creatinine Ratio 6 % Glucose 259 H (65-100) mg/dL Lactic Acid (0.7-2.0) mmol/L Calcium 8.8 (8.4-10.2) mg/dL Total Bilirubin 0.20 (0.1-1.2) mg/dL AST 128 H (5-40) units/L ALT 33 (7-56) units/L Alkaline Phosphatase 108 (35-129) units/L Troponin T 0.629 H* (0.00-0.029) ng/mL Total Protein 5.9 L (6.3-8.2) g/dL Albumin 2.1 L (3.9-5) g/dL Albumin/Globulin Ratio 0.6 % Triglycerides 155 H (2-149) mg/dL Cholesterol 94 (50-199) mg/dL LDL Cholesterol Direct 43 L (50-130) mg/dL HDL Cholesterol 32 L (40-59) mg/dL Cholesterol/HDL Ratio 2.93 % Blood Type Antibody Screen Crossmatch 08/28/18 08/28/18 08/28/18 Range/Units 16:24 16:24 17:32 WBC (4.5-11.0) K/mm3 RBC (3.65-5.03) M/mm3 Hgb (10.1-14.3) gm/dl Hct (30.3-42.9) % MCV (79-97) fl MCH (28-32) pg MCHC (30-34) % RDW (13.2-15.2) % Plt Count (140-440) K/mm3 Add Manual Diff Total Counted Seg Neuts % (Manual) (40.0-70.0) % Band Neutrophils % % Lymphocytes % (Manual) (13.4-35.0) % Reactive Lymphs % (Man) % Monocytes % (Manual) (0.0-7.3) % Eosinophils % (Manual) (0.0-4.3) % Basophils % (Manual) (0.0-1.8) % Metamyelocytes % % Myelocytes % % Promyelocytes % % Blast Cells % % Nucleated RBC % Seg Neutrophils # Man (1.8-7.7) K/mm3 Band Neutrophils # K/mm3 Lymphocytes # (Manual) (1.2-5.4) K/mm3 Abs React Lymphs (Man) K/mm3 Monocytes # (Manual) (0.0-0.8) K/mm3 Eosinophils # (Manual) (0.0-0.4) K/mm3 Basophils # (Manual) (0.0-0.1) K/mm3 Metamyelocytes # K/mm3 Myelocytes # K/mm3 Promyelocytes # K/mm3 Blast Cells # K/mm3 WBC Morphology Hypersegmented Neuts Hyposegmented Neuts Hypogranular Neuts Smudge Cells Toxic Granulation Toxic Vacuolation Dohle Bodies Pelger-Huet Anomaly Evelina Rods Platelet Estimate Clumped Platelets Plt Clumps, EDTA Large Platelets Giant Platelets Platelet Satelliting Plt Morphology Comment RBC Morphology Dimorphic RBCs Polychromasia Hypochromasia Poikilocytosis Anisocytosis Microcytosis Macrocytosis Spherocytes Pappenheimer Bodies Sickle Cells Target Cells Tear Drop Cells Ovalocytes Helmet Cells [place] Bodies Helm Rings [place] Cells Bite Cells Crenated Cell Elliptocytes Acanthocytes (Spur) Rouleaux Hemoglobin C Crystals Schistocytes Malaria parasites Abraham Bodies Hem Pathologist Commnt PT (12.2-14.9) Sec. INR (0.87-1.13) APTT (24.2-36.6) Sec. POC ABG pH (7.35-7.45) POC ABG pCO2 (35-45) POC ABG HCO3 (22-26 mml/L) POC ABG Total CO2 (23-27mmol/L) POC ABG O2 Sat POC ABG Base Excess ((-2) - (+3)mmol/L) VBG pH 6.930 L* (7.320-7.420) FiO2 % Sodium (137-145) mmol/L Potassium (3.6-5.0) mmol/L Chloride (98-107) mmol/L Carbon Dioxide (22-30) mmol/L Anion Gap mmol/L BUN (7-17) mg/dL Creatinine (0.7-1.2) mg/dL Estimated GFR ml/min BUN/Creatinine Ratio % Glucose (65-100) mg/dL Lactic Acid 11.20 H* (0.7-2.0) mmol/L Calcium (8.4-10.2) mg/dL Total Bilirubin (0.1-1.2) mg/dL AST (5-40) units/L ALT (7-56) units/L Alkaline Phosphatase (35-129) units/L Troponin T (0.00-0.029) ng/mL Total Protein (6.3-8.2) g/dL Albumin (3.9-5) g/dL Albumin/Globulin Ratio % Triglycerides (2-149) mg/dL Cholesterol (50-199) mg/dL LDL Cholesterol Direct (50-130) mg/dL HDL Cholesterol (40-59) mg/dL Cholesterol/HDL Ratio % Blood Type O POSITIVE Antibody Screen Negative Crossmatch See Detail 08/28/18 Range/Units 17:53 WBC (4.5-11.0) K/mm3 RBC (3.65-5.03) M/mm3 Hgb (10.1-14.3) gm/dl Hct (30.3-42.9) % MCV (79-97) fl MCH (28-32) pg MCHC (30-34) % RDW (13.2-15.2) % Plt Count (140-440) K/mm3 Add Manual Diff Total Counted Seg Neuts % (Manual) (40.0-70.0) % Band Neutrophils % % Lymphocytes % (Manual) (13.4-35.0) % Reactive Lymphs % (Man) % Monocytes % (Manual) (0.0-7.3) % Eosinophils % (Manual) (0.0-4.3) % Basophils % (Manual) (0.0-1.8) % Metamyelocytes % % Myelocytes % % Promyelocytes % % Blast Cells % % Nucleated RBC % Seg Neutrophils # Man (1.8-7.7) K/mm3 Band Neutrophils # K/mm3 Lymphocytes # (Manual) (1.2-5.4) K/mm3 Abs React Lymphs (Man) K/mm3 Monocytes # (Manual) (0.0-0.8) K/mm3 Eosinophils # (Manual) (0.0-0.4) K/mm3 Basophils # (Manual) (0.0-0.1) K/mm3 Metamyelocytes # K/mm3 Myelocytes # K/mm3 Promyelocytes # K/mm3 Blast Cells # K/mm3 WBC Morphology Hypersegmented Neuts Hyposegmented Neuts Hypogranular Neuts Smudge Cells Toxic Granulation Toxic Vacuolation Dohle Bodies Pelger-Huet Anomaly Evelina Rods Platelet Estimate Clumped Platelets Plt Clumps, EDTA Large Platelets Giant Platelets Platelet Satelliting Plt Morphology Comment RBC Morphology Dimorphic RBCs Polychromasia Hypochromasia Poikilocytosis Anisocytosis Microcytosis Macrocytosis Spherocytes Pappenheimer Bodies Sickle Cells Target Cells Tear Drop Cells Ovalocytes Helmet Cells [place] Bodies Helm Rings [place] Cells Bite Cells Crenated Cell Elliptocytes Acanthocytes (Spur) Rouleaux Hemoglobin C Crystals Schistocytes Malaria parasites Abraham Bodies Hem Pathologist Commnt PT (12.2-14.9) Sec. INR (0.87-1.13) APTT (24.2-36.6) Sec. POC ABG pH 7.285 L (7.35-7.45) POC ABG pCO2 42.8 (35-45) POC ABG HCO3 20.3 (22-26 mml/L) POC ABG Total CO2 22 (23-27mmol/L) POC ABG O2 Sat 100 POC ABG Base Excess -6 ((-2) - (+3)mmol/L) VBG pH (7.320-7.420) FiO2 100 % Sodium (137-145) mmol/L Potassium (3.6-5.0) mmol/L Chloride (98-107) mmol/L Carbon Dioxide (22-30) mmol/L Anion Gap mmol/L BUN (7-17) mg/dL Creatinine (0.7-1.2) mg/dL Estimated GFR ml/min BUN/Creatinine Ratio % Glucose (65-100) mg/dL Lactic Acid (0.7-2.0) mmol/L Calcium (8.4-10.2) mg/dL Total Bilirubin (0.1-1.2) mg/dL AST (5-40) units/L ALT (7-56) units/L Alkaline Phosphatase (35-129) units/L Troponin T (0.00-0.029) ng/mL Total Protein (6.3-8.2) g/dL Albumin (3.9-5) g/dL Albumin/Globulin Ratio % Triglycerides (2-149) mg/dL Cholesterol (50-199) mg/dL LDL Cholesterol Direct (50-130) mg/dL HDL Cholesterol (40-59) mg/dL Cholesterol/HDL Ratio % Blood Type Antibody Screen Crossmatch - EKG Data -: EKG Interpreted by In EKG shows normal: sinus rhythm, axis (-25) Rate: normal (78) - Radiology Data Radiology results: report reviewed PROCEDURE: XR CHEST 1V AP TECHNIQUE: One view HISTORY: s/p cardiac arrest COMPARISONS: 08/09/2018 FINDINGS: The endotracheal tube ends 3.3 cm above the hollie. Dual lumen left central vascular catheter ends at the right atrium. The left arm PICC ends at the SVC. Right pacemaker noted. Median sternotomy and prosthetic heart valve. Cardiac silhouette is stable. There are bilateral perihilar airspace opacities. No discernible pleural effusion or pneumothorax. IMPRESSION: Tubes and lines in place. Bilateral perihilar opacities. - Medical Decision Making Patient had a second cardiopulmonary arrest episode in the ED shortly after arrival. Patient developed PEA with a wide complex rhythm rate in the 120s. She received epinephrine 2, sodium bicarbonate and calcium chloride with return of spontaneous circulation. EKG QRS complex also narrowed. Given a history of V. fib patient did receive amiodarone 150. Blood pressure began to drop and therefore amiodarone drip canceled prior to initiation. Blood pressure dramatically dropped to systolic in the 40s after return of spontaneous circulation and therefore 1 L of normal saline and epinephrine drip initiated with improvement in MAP Patient's labs reveal hyperkalemia. Patient received additional insulin, glucos e, sodium bicarbonate, and albuterol 10 mg. Lasix not provided due to hypotension and Kayexalate not provided given a recent history of GI bleeding associated anemia. 1 unit of PRBC ordered for anemia Patient's critical status was discussed with her family members in the ED Hospitalist informed for admission - Differential Diagnosis arrhythmia, hyperkalemia, PE, sepsis, AK Critical Care Time: Yes Critical care time in (mins) excluding proc time.: 40 Critical care attestation.: If time is entered above; I have spent that time in minutes in the direct care of this critically ill patient, excluding procedure time. ED Disposition Clinical Impression: Cardiopulmonary arrest with successful resuscitation, Anemia, ESRD (end stage renal disease) on dialysis, Hyperkalemia, Cardiac pacemaker in situ, IDDM (insulin dependent diabetes mellitus) Disposition: OP ADMIT IP TO THIS HOSP Is pt being admited?: Yes Condition: Stable Instructions: Diabetes Mellitus Type 2 in Adults (ED) Time of Disposition: 18:09 (Dr Reece/hosp)
[2018-08-28] MEDS ORDERED: PROVENTIL IH ONE ×2 (18:36→18:48)
[2018-08-28] MEDS ORDERED: SODIUM BICARBONATE FEEDTUBE PRN (20:08)
[2018-08-28] MEDS ORDERED: SIMPLE SYRUP FEEDTUBE PRN (20:08)
[2018-08-28] MEDS ORDERED: MEROPENEM IV SCH (20:15)
[2018-08-28] MEDS ORDERED: NON-FORMULARY (Zinc Sulfate [Zinc Sulfate] 220 MG) PO SCH (20:15)
[2018-08-28] MEDS ORDERED: NS IV SCH (20:15)
[2018-08-28] MEDS ORDERED: NACL 0.9% 500 ML 500 ML ONE (20:17)
[2018-08-28] MEDS: MERREM/NS 500 MG/50 ML 500 MG/50 ML BAG IV SCH (21:18)
[2018-08-28] MEDS: PEPCID PO SCH (21:18)
[2018-08-28] MEDS: CORDARONE PO SCH (21:18)
[2018-08-28] MEDS: PROVENTIL IH SCH (22:51)
[2018-08-29] MEDS: PROVENTIL IH SCH (04:33)
[2018-08-29] MEDS ORDERED: DUONEB *Not for PRN Use IH ONE ×4 (04:33→20:33)
[2018-08-29] MEDS ORDERED: PROVENTIL IH ONE (04:35)
[2018-08-29] MEDS ORDERED: TYLENOL PO PRN (05:47)
[2018-08-29] MEDS ORDERED: PROVENTIL IH PRN (06:12)
--- NOTE | 2018-08-29 06:15 | History and Physical Report ---
History of Present Illness Date of examination: 08/28/18 Date of admission: 08/28/18 18:09 Chief complaint: Cardiac arrest History of present illness: 58-year-old female from the custodial with an extensive past medical history including ESRD on HD IDDM Arrhythmias Deep sacral wound recent GI BLEED presents to the hospital with cardiac arrest. Patient was apparently undergoing physical therapy at the custodial when she developed cardiac arrest. She received 2 defibrillations from AED prior to EMS arrival. Patient was in V. fib upon EMS arrival and defibrillation was used with return of spontaneous circulation. Upon arrival patient is unresponsive, receiving oxygenation via Ambu bag through tracheostomy to and patient is also noted to have a vas cath for dialysis, PEG tube, and PICC line. Patient has had 2 recent extensive hospitalizations and has been hospitalized pretty much since the beginning of July (see medical records). Family also reported that she has had several recent cardiac arrests. Patient undergoes dialysis Wednesday, Wednesday, and Wednesday. Pressors were started in the ER and BP came upto 87/54.Family now agreed for DNR status.I had multiple conversations in the past regarding Hemodialysis. Past Medical History Hypertension: Yes CVA: Yes Congestive Heart Failure: Yes (Pacemaker) Diabetes: Yes GERD: Yes Renal Disease: Yes (MWF) Additional medical history: Atrial fibrillation, osteomyelitis, left eye blurriness, anemia, hyperlipidemia Surgical History Hx Open Heart Surgery: Yes (scar noted) Hx Pacemaker: Yes Additional Surgical History: left great toe amputation, cataract, Tracheostomy Social History Smoking Status: Unknown if ever smoked Review of Systems ROS: Stated complaint: CARDIAC ARREST Other details as noted in HPI Comment: Unobtainable due to pts medical conditions Medications and Allergies Allergies Allergy/AdvReac Type Severity Reaction Status Date / Time ondansetron Allergy Anaphylaxis Verified 08/01/18 11:00 sulfamethoxazole Allergy Anaphylaxis Verified 08/01/18 11:00 [From Bactrim] trimethoprim [From Bactrim] Allergy Anaphylaxis Verified 08/01/18 11:00 vancomycin Allergy Anaphylaxis Verified 08/01/18 11:00 Home Medications Medication Instructions Recorded Confirmed Last Taken Type ALBUTEROL NEB's [Proventil 0.083% 3 ml IH Q4HR 07/26/18 08/20/18 08/19/18 History NEBS] Metoprolol [Lopressor TAB] 25 mg PO BID tablet 07/29/18 08/20/18 08/19/18 Rx amLODIPine [Norvasc] 5 mg PO QDAY tablet 07/29/18 08/20/18 08/19/18 Rx Amiodarone HCl [Pacerone] 200 mg PO DAILY 08/01/18 08/20/18 08/19/18 History Aspirin [Adult Aspirin] 81 mg PO DAILY 08/01/18 08/20/18 08/19/18 History Carvedilol [Coreg] 12.5 mg PO BID 08/01/18 08/20/18 08/19/18 History Famotidine 20 mg PO DAILY 08/01/18 08/20/18 08/19/18 History Gabapentin [Gralise] 30 mg PO QHS 08/01/18 08/20/18 08/19/18 History Lispro Insulin [Humalog] 0 unit SQ TID 08/01/18 08/20/18 08/19/18 History Loperamide [Imodium] 2 mg PO Q6H 08/01/18 08/20/18 08/19/18 History Sevelamer Carbonate [Renvela] 800 mg PO TIDWM 08/01/18 08/20/18 08/19/18 History Zinc Sulfate 220 mg PO DAILY 08/01/18 08/20/18 08/19/18 History Acetaminophen [Acetaminophen TAB] 650 mg PO Q4H PRN #15 tablet 08/09/18 08/20/18 08/19/18 Rx Midodrine [Proamatine] 10 mg PO BID #60 tablet 08/09/18 08/20/18 08/19/18 Rx QUEtiapine [SEROquel] 25 mg PO BID@0800,1700 #60 tablet 08/09/18 08/20/18 08/19/18 Rx QUEtiapine [SEROquel] 50 mg PO QHS #30 tablet 08/09/18 08/20/18 08/19/18 Rx Simple Syrup 30 ml FEEDTUBE PRN PRN #30 08/09/18 08/20/18 08/19/18 Rx oral.liqd Sodium Bicarbonate 325 mg FEEDTUBE PRN PRN #30 tablet 08/09/18 08/20/18 08/19/18 Rx Amiodarone [Cordarone 200 MG TAB] 200 mg PO DAILY tablet 08/18/18 08/20/18 08/19/18 Rx Aspirin EC [Aspirin Enteric Coated 81 mg PO DAILY tablet 08/18/18 08/20/18 08/19/18 Rx TAB] Famotidine [Pepcid] 20 mg PO DAILY tablet 08/18/18 08/20/18 08/19/18 Rx Ipratropium/Albuterol Sulfate 1 ampul IH TIDRT ampul.neb 08/18/18 08/20/18 08/19/18 Rx [DUONEB *Not for PRN Use*] Linezolid [Zyvox] 600 mg PO Q12HR #34 tablet 08/18/18 08/20/18 08/19/18 Rx Lipase/Protease/Amylase [Pancreaze 1 each FEEDTUBE PRN PRN capsule 08/18/18 08/20/18 08/19/18 Rx 10,500 Unit] Loperamide [Imodium] 2 mg PO Q6HR #20 capsule 08/18/18 08/20/18 08/19/18 Rx Meropenem/Ns 500 mg/50 ml 500 mg IV Q24H #17 bag 08/18/18 08/20/18 08/19/18 Rx [Merrem/Ns 500 mg/50 ml] Metoprolol [Lopressor TAB] 25 mg PO BID tablet 08/18/18 08/20/18 08/19/18 Rx Sevelamer Carbonate [Renvela] 800 mg PO TIDWM tablet 08/18/18 08/20/18 08/19/18 Rx Simple Syrup 30 ml FEEDTUBE PRN PRN oral.liqd 08/18/18 08/20/18 08/19/18 Rx amLODIPine [Norvasc] 10 mg PO QDAY tablet 08/18/18 08/20/18 08/19/18 Rx oxyCODONE /ACETAMINOPHEN [Percocet 1 tab PO Q6H PRN #20 tablet 08/18/18 08/20/18 08/19/18 Rx 5/325 mg] oxyCODONE /ACETAMINOPHEN [Percocet 1 tab PO Q6HR PRN #20 tablet 08/18/18 08/20/18 08/19/18 Rx 5/325 mg] Active Meds: Active Medications Acetaminophen (Tylenol) 650 mg PO Q4H PRN PRN Reason: Pain MILD(1-3)/Fever >100.5/CASAREZ Albuterol (Proventil) 2.5 mg IH Q4HR [facility] Last Admin: 08/29/18 04:33 Dose: 2.5 mg Documented by: Albuterol/Ipratropium (Duoneb *Not For Prn Use*) 1 ampul IH TIDRT [facility] Amiodarone HCl (Cordarone) 200 mg PO DAILY [facility] Last Admin: 08/28/18 21:18 Dose: Not Given Documented by: Famotidine (Pepcid) 20 mg PO DAILY [facility] Last Admin: 08/28/18 21:18 Dose: Not Given Documented by: Epinephrine 8 mg/ Sodium (Chloride) 250 mls @ 3.75 mls/hr IV TITR ONE; Protocol Stop: 08/31/18 11:35 Last Admin: 08/28/18 17:27 Dose: 2 mcg/min, 3.75 mls/hr Documented by: Meropenem (Merrem/Ns 500 Mg/50 Ml) 500 mg in 50 mls @ 50 mls/hr IV Q24H [facility] Last Admin: 08/28/18 21:18 Dose: Not Given Documented by: Insulin Human Lispro (Humalog) 0 unit SUB-Q Q6HR [facility]; Protocol Midodrine (Proamatine) 10 mg PO BID@0800,1700 [facility] Miscellaneous Medication (Gabapentin [Gralise]) 30 mg PO QHS [facility] Quetiapine Fumarate (Seroquel) 25 mg PO BID@0800,1700 [facility] Quetiapine Fumarate (Seroquel) 50 mg PO QHS [facility] Last Admin: 08/28/18 22:51 Dose: Not Given Documented by: Sevelamer Carbonate (Renvela) 800 mg PO TIDWM [facility] Simple Syrup (Simple Syrup) 30 ml FEEDTUBE PRN PRN PRN Reason: Hypoglycemia Sodium Bicarbonate (Sodium Bicarbonate) 325 mg FEEDTUBE PRN PRN PRN Reason: For Clogged Feeding Tube Zinc Sulfate (Zinc Sulfate) 220 mg PO DAILY [facility] Exam - Constitutional Vitals: Temp Pulse Resp BP Pulse Ox 96.8 F L 85 16 102/65 98 08/29/18 00:00 08/29/18 04:45 08/29/18 04:45 08/29/18 04:45 08/29/18 04:45 General appearance: Present: severe distress, well-nourished - EENT Eyes: Present: PERRL (Pupils sluggish to responsive) ENT: hearing intact, clear oral mucosa - Neck Neck: Present: supple, normal ROM, other (Trach in place) - Respiratory Respiratory effort: normal Respiratory: bilateral: CTA - Cardiovascular Heart rate: 80 Rhythm: regular Heart Sounds: Present: S1 & S2. Absent: rub, click - Extremities Extremities: pulses symmetrical, No edema, abnormal (Large sacral decubitus ulcer with deep [id number] mx6cm depth) Peripheral Pulses: within normal limits - Abdominal General gastrointestinal: Present: soft, non-tender, non-distended, normal bowel sounds, other (Peg in place) Female genitourinary: Present: normal - Rectal Rectal Exam: deferred - Integumentary Integumentary: Present: clear, warm, dry - Musculoskeletal Musculoskeletal: generalized weakness - Psychiatric Psychiatric: other (Unresponsive) - Neurologic Neurologic: moves all extremities - Allied Health Allied health notes reviewed: nursing, case management Results - Labs CBC & Chem 7: 08/28/18 16:24 08/28/18 16:24 Labs: Laboratory Last Values WBC 15.1 K/mm3 (4.5-11.0) H 08/28/18 16:24 RBC 2.21 M/mm3 (3.65-5.03) L 08/28/18 16:24 Hgb 6.6 gm/dl (10.1-14.3) L 08/28/18 16:24 Hct 21.3 % (30.3-42.9) L 08/28/18 16:24 MCV 96 fl (79-97) 08/28/18 16:24 MCH 30 pg (28-32) 08/28/18 16:24 MCHC 31 % (30-34) 08/28/18 16:24 RDW 17.5 % (13.2-15.2) H 08/28/18 16:24 Plt Count 296 K/mm3 (140-440) 08/28/18 16:24 Add Manual Diff Complete 08/28/18 16:24 Total Counted 100 08/28/18 16:24 Seg Neuts % (Manual) 67.0 % (40.0-70.0) 08/28/18 16:24 Band Neutrophils % 2.0 % 08/28/18 16:24 Lymphocytes % (Manual) 25.0 % (13.4-35.0) 08/28/18 16:24 Reactive Lymphs % (Man) 0 % 08/28/18 16:24 Monocytes % (Manual) 3.0 % (0.0-7.3) 08/28/18 16:24 Eosinophils % (Manual) 1.0 % (0.0-4.3) 08/28/18 16:24 Basophils % (Manual) 0 % (0.0-1.8) 08/28/18 16:24 Metamyelocytes % 1.0 % 08/28/18 16:24 Myelocytes % 1.0 % 08/28/18 16:24 Promyelocytes % 0 % 08/28/18 16:24 Blast Cells % 0 % 08/28/18 16:24 Nucleated RBC % Not Reportable 08/28/18 16:24 Seg Neutrophils # Man 10.1 K/mm3 (1.8-7.7) H 08/28/18 16:24 Band Neutrophils # 0.3 K/mm3 08/28/18 16:24 Lymphocytes # (Manual) 3.8 K/mm3 (1.2-5.4) 08/28/18 16:24 Abs React Lymphs (Man) 0.0 K/mm3 08/28/18 16:24 Monocytes # (Manual) 0.5 K/mm3 (0.0-0.8) 08/28/18 16:24 Eosinophils # (Manual) 0.2 K/mm3 (0.0-0.4) 08/28/18 16:24 Basophils # (Manual) 0.0 K/mm3 (0.0-0.1) 08/28/18 16:24 Metamyelocytes # 0.2 K/mm3 08/28/18 16:24 Myelocytes # 0.2 K/mm3 08/28/18 16:24 Promyelocytes # 0.0 K/mm3 08/28/18 16:24 Blast Cells # 0.0 K/mm3 08/28/18 16:24 WBC Morphology Not Reportable 08/28/18 16:24 Hypersegmented Neuts Not Reportable 08/28/18 16:24 Hyposegmented Neuts Not Reportable 08/28/18 16:24 Hypogranular Neuts Not Reportable 08/28/18 16:24 Smudge Cells Not Reportable 08/28/18 16:24 Toxic Granulation Not Reportable 08/28/18 16:24 Toxic Vacuolation Not Reportable 08/28/18 16:24 Dohle Bodies Not Reportable 08/28/18 16:24 Pelger-Huet Anomaly Not Reportable 08/28/18 16:24 Evelina Rods Not Reportable 08/28/18 16:24 Platelet Estimate Consistent w auto 08/28/18 16:24 Clumped Platelets Not Reportable 08/28/18 16:24 Plt Clumps, EDTA Not Reportable 08/28/18 16:24 Large Platelets Not Reportable 08/28/18 16:24 Giant Platelets Not Reportable 08/28/18 16:24 Platelet Satelliting Not Reportable 08/28/18 16:24 Plt Morphology Comment Not Reportable 08/28/18 16:24 RBC Morphology Not Reportable 08/28/18 16:24 Dimorphic RBCs Not Reportable 08/28/18 16:24 Polychromasia Not Reportable 08/28/18 16:24 Hypochromasia 1+ 08/28/18 16:24 Poikilocytosis Few 08/28/18 16:24 Anisocytosis 1+ 08/28/18 16:24 Microcytosis 1+ 08/28/18 16:24 Macrocytosis Not Reportable 08/28/18 16:24 Spherocytes Not Reportable 08/28/18 16:24 Pappenheimer Bodies Not Reportable 08/28/18 16:24 Sickle Cells Not Reportable 08/28/18 16:24 Target Cells Not Reportable 08/28/18 16:24 Tear Drop Cells Not Reportable 08/28/18 16:24 Ovalocytes Few 08/28/18 16:24 Helmet Cells Not Reportable 08/28/18 16:24 [place] Bodies Not Reportable 08/28/18 16:24 [place] Rings Not Reportable 08/28/18 16:24 [place] Cells Not Reportable 08/28/18 16:24 Bite Cells Not Reportable 08/28/18 16:24 Crenated Cell Not Reportable 08/28/18 16:24 Elliptocytes Not Reportable 08/28/18 16:24 Acanthocytes (Spur) Not Reportable 08/28/18 16:24 Rouleaux Not Reportable 08/28/18 16:24 Hemoglobin C Crystals Not Reportable 08/28/18 16:24 Schistocytes Not Reportable 08/28/18 16:24 Malaria parasites Not Reportable 08/28/18 16:24 [place] Bodies Not Reportable 08/28/18 16:24 Hem Pathologist Commnt No 08/28/18 16:24 PT 15.7 Sec. (12.2-14.9) H 08/28/18 16:24 INR 1.17 (0.87-1.13) H 08/28/18 16:24 APTT 33.7 Sec. (24.2-36.6) 08/28/18 16:24 POC ABG pH 7.460 (7.35-7.45) H 08/29/18 04:46 POC ABG pCO2 34.2 (35-45) L 08/29/18 04:46 POC ABG pO2 171 (80-105) H 08/29/18 04:46 POC ABG HCO3 24.3 (22-26 mml/L) 08/29/18 04:46 POC ABG Total CO2 25 (23-27mmol/L) 08/29/18 04:46 POC ABG O2 Sat 100 08/29/18 04:46 POC ABG Base Excess 0 ((-2) - (+3)mmol/L) 08/29/18 04:46 VBG pH 6.930 (7.320-7.420) L* 08/28/18 16:24 FiO2 40 % 08/29/18 04:46 Sodium 128 mmol/L (137-145) L 08/28/18 16:24 Potassium 5.7 mmol/L (3.6-5.0) H 08/28/18 16:24 Chloride 90.5 mmol/L (98-107) L 08/28/18 16:24 Carbon Dioxide 18 mmol/L (22-30) L 08/28/18 16:24 Anion Gap 25 mmol/L 08/28/18 16:24 BUN 30 mg/dL (7-17) H 08/28/18 16:24 Creatinine 5.3 mg/dL (0.7-1.2) H 08/28/18 16:24 Estimated GFR 10 ml/min 08/28/18 16:24 BUN/Creatinine Ratio 6 % 08/28/18 16:24 Glucose 259 mg/dL (65-100) H 08/28/18 16:24 POC Glucose 217 (70-105) H 08/29/18 02:16 Lactic Acid 11.20 mmol/L (0.7-2.0) H* 08/28/18 16:24 Calcium 8.8 mg/dL (8.4-10.2) 08/28/18 16:24 Total Bilirubin 0.20 mg/dL (0.1-1.2) 08/28/18 16:24 AST 128 units/L (5-40) H 08/28/18 16:24 ALT 33 units/L (7-56) 08/28/18 16:24 Alkaline Phosphatase 108 units/L (35-129) 08/28/18 16:24 Troponin T 0.629 ng/mL (0.00-0.029) H* 08/28/18 16:24 Total Protein 5.9 g/dL (6.3-8.2) L 08/28/18 16:24 Albumin 2.1 g/dL (3.9-5) L 08/28/18 16:24 Albumin/Globulin Ratio 0.6 % 08/28/18 16:24 Triglycerides 155 mg/dL (2-149) H 08/28/18 16:24 Cholesterol 94 mg/dL (50-199) 08/28/18 16:24 LDL Cholesterol Direct 43 mg/dL (50-130) L 08/28/18 16:24 HDL Cholesterol 32 mg/dL (40-59) L 08/28/18 16:24 Cholesterol/HDL Ratio 2.93 % 08/28/18 16:24 Blood Type O POSITIVE 08/28/18 17:32 Antibody Screen Negative 08/28/18 17:32 Crossmatch See Detail 08/28/18 17:32 Short CBC 08/28/18 Range/Units 16:24 WBC 15.1 H (4.5-11.0) K/mm3 Hgb 6.6 L (10.1-14.3) gm/dl Hct 21.3 L (30.3-42.9) % Plt Count 296 (140-440) K/mm3 BMP 03/17/19 16:24 Sodium 128 L Potassium 5.7 H Chloride 90.5 L Carbon Dioxide 18 L BUN 30 H Creatinine 5.3 H Glucose 259 H Calcium 8.8 Cardiac Enzymes 08/28/18 Range/Units 16:24 Troponin T 0.629 H* (0.00-0.029) ng/mL Liver Function 08/28/18 Range/Units 16:24 Total Bilirubin 0.20 (0.1-1.2) mg/dL AST 128 H (5-40) units/L ALT 33 (7-56) units/L Alkaline Phosphatase 108 (35-129) units/L Albumin 2.1 L (3.9-5) g/dL - Imaging and Cardiology EKG: report reviewed (Sinus [id number]/min) Imaging and Cardiology: CXR Bilateral perihilar opacities Assessment and Plan Advance Directives: Yes (DNR) VTE prophylaxis?: Chemical Plan of care discussed with patient/family: Yes - Patient Problems (1) Cardiac arrest with successful resuscitation Current Visit: No Status: Acute Plan to address problem: Patient succesfully revived after defibrilation x 3---2 in field and once in ER Family eventually agreed for DNR status. Hospitalist team including me have discussed DNR multiple times since beginning of Jul 2018 explaining the futility in treating -given her multiple comorbid conditions icludin ESRD GI Bleed and deep sacral wound. (2) Sepsis Current Visit: Yes Status: Acute Qualifiers: Sepsis type: sepsis due to unspecified organism Qualified Code(s): A41.9 - Sepsis, unspecified organism Plan to address problem: Patient is septic High Lactic acid Deep infected sacral decubitus ulce On Meropenem and Zyvox Continue same ID consulted for further reccomendations (3) ESRD (end stage renal disease) on dialysis Current Visit: Yes Status: Chronic Plan to address problem: Primary team to have a conversation regarding continuation of HD. (4) IDDM (insulin dependent diabetes mellitus) Current Visit: Yes Status: Chronic Plan to address problem: Coverage for now (5) Acute respiratory failure with hypoxia Current Visit: Yes Status: Acute Plan to address problem: Patient has trach. Cont vent support (6) Hypotension Current Visit: Yes Status: Acute Plan to address problem: Sec to sepsis On IV Epinephrine (7) COPD (chronic obstructive pulmonary disease) Current Visit: Yes Status: Chronic Qualifiers: Emphysema type: unspecified Plan to address problem: Cont duonebs prn (8) Severe anemia Current Visit: Yes Status: Acute Plan to address problem: Transfuse one unit PRBC now and reevaluate (9) DVT prophylaxis Current Visit: Yes Status: Acute Plan to address problem: On Heparin and GI prophylaxis (10) Advanced directives, counseling/discussion Current Visit: Yes Status: Acute Plan to address problem: Had multiple discussions about prognosis and AND/DNR in last one and half months The daughter wo is POA signed DNR today Bad prognosis
[2018-08-29] MEDS: HumaLOG SUB-Q SCH ×3 (06:47→19:39)
[2018-08-29] MEDS: DUONEB *Not for PRN Use IH SCH ×3 (08:57→20:31)
[2018-08-29] MEDS ORDERED: ZINC SULFATE PO SCH (10:00)
[2018-08-29] MEDS ORDERED: CORDARONE PO SCH (10:00)
[2018-08-29] MEDS ORDERED: PEPCID PO SCH (10:00)
[2018-08-29] MEDS ORDERED: ZYVOX PO SCH (12:00)
--- NOTE | 2018-08-29 14:20 | Consultation ---
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 Unable to obtain any history from patient and her was not able to provide any history. Patient developed Cardiac arrest at the snf and received 2 defibrillations from AED prior to EMS arrival. Patient was in V. fib upon EMS arrival and ROSC was achieved after defibrillation. Patient is currently unresponsive, on vent through the tracheostomy tube and on Epinephrine. History also significant for multiple cardiac arrests. She was discharged from this [facility] on 08/23/2018. Admission labs were significant for Hb 6.6, K 5.7 and Lactate 11.2. Nephrology was consulted for further evaluation and treatment. Medications and Allergies Allergies Allergy/AdvReac Type Severity Reaction Status Date / Time ondansetron Allergy Anaphylaxis Verified 08/01/18 11:00 sulfamethoxazole Allergy Anaphylaxis Verified 08/01/18 11:00 [From Bactrim] trimethoprim [From Bactrim] Allergy Anaphylaxis Verified 08/01/18 11:00 vancomycin Allergy Anaphylaxis Verified 08/01/18 11:00 Home Medications Medication Instructions Recorded Confirmed Last Taken Type Carvedilol [Coreg] 12.5 mg FEEDTUBE BID 08/01/18 08/29/18 08/19/18 History Famotidine 20 mg FEEDTUBE DAILY 08/01/18 08/29/18 08/19/18 History Loperamide [Imodium] 2 mg FEEDTUBE Q6H 08/01/18 08/29/18 08/19/18 History Sevelamer Carbonate [Renvela] 800 mg FEEDTUBE TIDWM 08/01/18 08/29/18 08/19/18 History Meropenem/Ns 500 mg/50 ml 500 mg IV Q24H #17 bag 08/18/18 08/29/18 08/19/18 Rx [Merrem/Ns 500 mg/50 ml] Metoprolol [Lopressor TAB] 25 mg PO BID tablet 08/18/18 08/29/18 08/19/18 Rx ALBUTEROL NEB's [Proventil] 2.5 mg IH Q4H PRN 08/29/18 08/29/18 Unknown History Acetaminophen [Tylenol] 650 mg FEEDTUBE Q6HR PRN 08/29/18 08/29/18 Unknown History Amiodarone [Cordarone 200 MG TAB] 200 mg FEEDTUBE DAILY 08/29/18 08/29/18 Unknown History Amlodipine Besylate [Norvasc] 5 mg FEEDTUBE DAILY 08/29/18 08/29/18 Unknown History Aspirin [Aspirin BABY CHEW TAB] 81 mg FEEDTUBE QDAY 08/29/18 08/29/18 Unknown History Gabapentin [Neurontin] 6 ml FEEDTUBE HS 08/29/18 08/29/18 Unknown History Insulin Lispro [HumaLOG VIAL] See Protocol SUB-Q AC 08/29/18 08/29/18 Unknown History Linezolid [Zyvox] 600 mg FEEDTUBE BID 08/29/18 08/29/18 Unknown History Midodrine HCl 10 mg FEEDTUBE BID 08/29/18 08/29/18 Unknown History Oxychlorosene [Clorpactin] 2 gm TP DAILY 08/29/18 08/29/18 Unknown History QUEtiapine [SEROquel] 25 mg FEEDTUBE BID 08/29/18 08/29/18 Unknown History oxyCODONE /ACETAMINOPHEN [Percocet 1 tab FEEDTUBE Q6HR PRN 08/29/18 08/29/18 Unknown History 5/325] Active Meds: Active Medications Acetaminophen (Tylenol) 650 mg PO Q4H PRN PRN Reason: Pain MILD(1-3)/Fever >100.5/CASAERZ Albuterol (Proventil) 2.5 mg IH Q4HR PRN PRN Reason: Shortness Of Breath Albuterol/Ipratropium (Duoneb *Not For Prn Use*) 1 ampul IH TIDRT [facility] Last Admin: 08/29/18 08:57 Dose: 1 ampul Documented by: Amiodarone HCl (Cordarone) 200 mg PO DAILY [facility] Last Admin: 08/28/18 21:18 Dose: Not Given Documented by: Famotidine (Pepcid) 20 mg PO DAILY [facility] Last Admin: 08/28/18 21:18 Dose: Not Given Documented by: Epinephrine 8 mg/ Sodium (Chloride) 250 mls @ 3.75 mls/hr IV TITR ONE; Protocol Stop: 08/31/18 11:35 Last Admin: 08/28/18 17:27 Dose: 2 mcg/min, 3.75 mls/hr Documented by: Meropenem (Merrem/Ns 500 Mg/50 Ml) 500 mg in 50 mls @ 50 mls/hr IV Q24H [facility] Last Admin: 08/28/18 21:18 Dose: Not Given Documented by: Insulin Human Lispro (Humalog) 0 unit SUB-Q Q6HR [facility]; Protocol Last Admin: 08/29/18 06:47 Dose: Not Given Documented by: Linezolid (Zyvox) 600 mg PO Q12HR [facility]; Protocol Midodrine (Proamatine) 10 mg PO BID@0800,1700 [facility] Miscellaneous Medication (Gabapentin [Gralise]) 30 mg PO QHS [facility] Quetiapine Fumarate (Seroquel) 25 mg PO BID@0800,1700 [facility] Quetiapine Fumarate (Seroquel) 50 mg PO QHS [facility] Last Admin: 08/28/18 22:51 Dose: Not Given Documented by: Sevelamer Carbonate (Renvela) 800 mg PO TIDWM [facility] Simple Syrup (Simple Syrup) 30 ml FEEDTUBE PRN PRN PRN Reason: Hypoglycemia Sodium Bicarbonate (Sodium Bicarbonate) 325 mg FEEDTUBE PRN PRN PRN Reason: For Clogged Feeding Tube Zinc Sulfate (Zinc Sulfate) 220 mg PO DAILY [facility] Exam - Vital Signs Vital signs: Vital Signs Pulse Resp BP Pulse Ox 60 20 46/25 100 08/28/18 16:07 08/28/18 16:07 08/28/18 16:07 08/28/18 16:07 Results - Lab Results 08/28/18 16:24 08/28/18 16:24 Most recent lab results Calcium 8.8 mg/dL (8.4-10.2) 08/28/18 16:24 Assessment and Plan 1. ESRD: Her regular schedule is MWF. BP is too low to hemodialysis today. Monitor. 2. Hypotension: On Epinephrine. 3. S/p Cardiac arrest: H/o previous Cardiac arrest. 4. Anemia: PRBC. 5. Respiratory failure: On vent. Family is refusing blood draw. Overall prognosis is poor. D/w her at the bedside.
--- NOTE | 2018-08-29 14:37 | Consultation ---
History of Present Illness - Reason for Consult Consult date: 08/29/18 Sepsis Requesting physician: TULIO ANDREW - History of Present Illness The patient is a 58-year-old female with hypertension, ischemic CVA from mitral valve endocarditis in February 2018, respiratory failure status post tracheostomy and PEG tubes, previous MRSA bacteremia, previous right first and second toe osteomyelitis status post amputation, ESRD on dialysis was well-known to the infectious disease service from her multiple previous hospitalizations in July 2018 was admitted today after she had a cardiac arrest at the rehabilitation facility. She is currently septic, on the ventilator through her tracheostomy tube and on pressors with ongoing hypotension. Remains critically. She has now been made a DNR. Infectious diseases was consulted due to sepsis. 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 Review of Systems: Cannot be obtained due to mental status. Medications and Allergies Allergies Allergy/AdvReac Type Severity Reaction Status Date / Time ondansetron Allergy Anaphylaxis Verified 08/01/18 11:00 sulfamethoxazole Allergy Anaphylaxis Verified 08/01/18 11:00 [From Bactrim] trimethoprim [From Bactrim] Allergy Anaphylaxis Verified 08/01/18 11:00 vancomycin Allergy Anaphylaxis Verified 08/01/18 11:00 Home Medications Medication Instructions Recorded Confirmed Last Taken Type Carvedilol [Coreg] 12.5 mg FEEDTUBE BID 08/01/18 08/29/18 08/19/18 History Famotidine 20 mg FEEDTUBE DAILY 08/01/18 08/29/18 08/19/18 History Loperamide [Imodium] 2 mg FEEDTUBE Q6H 08/01/18 08/29/18 08/19/18 History Sevelamer Carbonate [Renvela] 800 mg FEEDTUBE TIDWM 08/01/18 08/29/18 08/19/18 History Meropenem/Ns 500 mg/50 ml 500 mg IV Q24H #17 bag 08/18/18 08/29/18 08/19/18 Rx [Merrem/Ns 500 mg/50 ml] Metoprolol [Lopressor TAB] 25 mg PO BID tablet 08/18/18 08/29/18 08/19/18 Rx ALBUTEROL NEB's [Proventil] 2.5 mg IH Q4H PRN 08/29/18 08/29/18 Unknown History Acetaminophen [Tylenol] 650 mg FEEDTUBE Q6HR PRN 08/29/18 08/29/18 Unknown History Amiodarone [Cordarone 200 MG TAB] 200 mg FEEDTUBE DAILY 08/29/18 08/29/18 Unknown History Amlodipine Besylate [Norvasc] 5 mg FEEDTUBE DAILY 08/29/18 08/29/18 Unknown History Aspirin [Aspirin BABY CHEW TAB] 81 mg FEEDTUBE QDAY 08/29/18 08/29/18 Unknown History Gabapentin [Neurontin] 6 ml FEEDTUBE HS 08/29/18 08/29/18 Unknown History Insulin Lispro [HumaLOG VIAL] See Protocol SUB-Q AC 08/29/18 08/29/18 Unknown History Linezolid [Zyvox] 600 mg FEEDTUBE BID 08/29/18 08/29/18 Unknown History Midodrine HCl 10 mg FEEDTUBE BID 08/29/18 08/29/18 Unknown History Oxychlorosene [Clorpactin] 2 gm TP DAILY 08/29/18 08/29/18 Unknown History QUEtiapine [SEROquel] 25 mg FEEDTUBE BID 08/29/18 08/29/18 Unknown History oxyCODONE /ACETAMINOPHEN [Percocet 1 tab FEEDTUBE Q6HR PRN 08/29/18 08/29/18 Un known History 5325] Active Meds: Active Medications Acetaminophen (Tylenol) 650 mg PO Q4H PRN PRN Reason: Pain MILD(1-3)/Fever >100.5/CASAREZ Albuterol (Proventil) 2.5 mg IH Q4HR PRN PRN Reason: Shortness Of Breath Albuterol/Ipratropium (Duoneb *Not For Prn Use*) 1 ampul IH TIDRT [facility] Last Admin: 08/29/18 08:57 Dose: 1 ampul Documented by: Amiodarone HCl (Cordarone) 200 mg PO DAILY [facility] Last Admin: 08/28/18 21:18 Dose: Not Given Documented by: Famotidine (Pepcid) 20 mg PO DAILY [facility] Last Admin: 08/28/18 21:18 Dose: Not Given Documented by: Epinephrine 8 mg/ Sodium (Chloride) 250 mls @ 3.75 mls/hr IV TITR ONE; Protocol Stop: 08/31/18 11:35 Last Admin: 08/28/18 17:27 Dose: 2 mcg/min, 3.75 mls/hr Documented by: Meropenem (Merrem/Ns 500 Mg/50 Ml) 500 mg in 50 mls @ 50 mls/hr IV Q24H [facility] Last Admin: 08/28/18 21:18 Dose: Not Given Documented by: Insulin Human Lispro (Humalog) 0 unit SUB-Q Q6HR [facility]; Protocol Last Admin: 08/29/18 06:47 Dose: Not Given Documented by: Linezolid (Zyvox) 600 mg PO Q12HR [facility]; Protocol Midodrine (Proamatine) 10 mg PO BID@0800,1700 [facility] Miscellaneous Medication (Gabapentin [Gralise]) 30 mg PO QHS [facility] Quetiapine Fumarate (Seroquel) 25 mg PO BID@0800,1700 [facility] Quetiapine Fumarate (Seroquel) 50 mg PO QHS [facility] Last Admin: 08/28/18 22:51 Dose: Not Given Documented by: Sevelamer Carbonate (Renvela) 800 mg PO TIDWM [facility] Simple Syrup (Simple Syrup) 30 ml FEEDTUBE PRN PRN PRN Reason: Hypoglycemia Sodium Bicarbonate (Sodium Bicarbonate) 325 mg FEEDTUBE PRN PRN PRN Reason: For Clogged Feeding Tube Zinc Sulfate (Zinc Sulfate) 220 mg PO DAILY [facility] Physical Examination - Physical Exam Narrative exam: Physical Exam: Constitutional: unresponsive. on vent. Head, Ears, Nose: Normocephalic, atraumatic. External ears, nose normal Eyes: Conjunctivae/corneas clear. No icterus. No ptosis. Neck: trach + with vent. Oral: unable to examine Cardiovascular: S1, S2 normal. Respiratory: Good air entry, clear to auscultation bilaterally GI: Soft; bowel sounds hypoactive. PEG +. No peritoneal signs Musculoskeletal: No pedal edema, cold extremities Skin: No rash or abscess Hem/Lymphatic: No palpable cervical or supraclavicular nodes. No lymphangitis Psych: no agitation Neurological: unresponsive, on vent. - Constitutional Vitals: Vital Signs Temp Pulse Resp BP Pulse Ox 98.6 F 97 H 14 92/48 98 08/29/18 05:00 08/29/18 12:22 08/29/18 12:22 08/29/18 12:22 08/29/18 12:22 Temperature -Last 24 Hours Temperature 98.6 F Temperature 96.8 F Temperature 94.1 F Temperature 97.9 F Temperature 97.6 F Results - Labs CBC & Chem 7: 08/28/18 16:24 08/28/18 16:24 Labs: Abnormal lab results 08/28/18 08/28/18 08/28/18 Range/Units 16:24 16:24 16:24 WBC 15.1 H (4.5-11.0) K/mm3 RBC 2.21 L (3.65-5.03) M/mm3 Hgb 6.6 L (10.1-14.3) gm/dl Hct 21.3 L (30.3-42.9) % RDW 17.5 H (13.2-15.2) % Seg Neutrophils # Man 10.1 H (1.8-7.7) K/mm3 PT 15.7 H (12.2-14.9) Sec. INR 1.17 H (0.87-1.13) POC ABG pH (7.35-7.45) POC ABG pCO2 (35-45) POC ABG pO2 (80-105) VBG pH (7.320-7.420) Sodium 128 L (137-145) mmol/L Potassium 5.7 H (3.6-5.0) mmol/L Chloride 90.5 L (98-107) mmol/L Carbon Dioxide 18 L (22-30) mmol/L BUN 30 H (7-17) mg/dL Creatinine 5.3 H (0.7-1.2) mg/dL Glucose 259 H (65-100) mg/dL POC Glucose (70-105) Lactic Acid (0.7-2.0) mmol/L AST 128 H (5-40) units/L Troponin T 0.629 H* (0.00-0.029) ng/mL Total Protein 5.9 L (6.3-8.2) g/dL Albumin 2.1 L (3.9-5) g/dL Triglycerides 155 H (2-149) mg/dL LDL Cholesterol Direct 43 L (50-130) mg/dL HDL Cholesterol 32 L (40-59) mg/dL Crossmatch 08/28/18 08/28/18 08/28/18 Range/Units 16:24 16:24 17:32 WBC (4.5-11.0) K/mm3 RBC (3.65-5.03) M/mm3 Hgb (10.1-14.3) gm/dl Hct (30.3-42.9) % RDW (13.2-15.2) % Seg Neutrophils # Man (1.8-7.7) K/mm3 PT (12.2-14.9) Sec. INR (0.87-1.13) POC ABG pH (7.35-7.45) POC ABG pCO2 (35-45) POC ABG pO2 (80-105) VBG pH 6.930 L* (7.320-7.420) Sodium (137-145) mmol/L Potassium (3.6-5.0) mmol/L Chloride (98-107) mmol/L Carbon Dioxide (22-30) mmol/L BUN (7-17) mg/dL Creatinine (0.7-1.2) mg/dL Glucose (65-100) mg/dL POC Glucose (70-105) Lactic Acid 11.20 H* (0.7-2.0) mmol/L AST (5-40) units/L Troponin T (0.00-0.029) ng/mL Total Protein (6.3-8.2) g/dL Albumin (3.9-5) g/dL Triglycerides (2-149) mg/dL LDL Cholesterol Direct (50-130) mg/dL HDL Cholesterol (40-59) mg/dL Crossmatch See Detail 08/28/18 08/29/18 08/29/18 Range/Units 17:53 02:16 04:46 WBC (4.5-11.0) K/mm3 RBC (3.65-5.03) M/mm3 Hgb (10.1-14.3) gm/dl Hct (30.3-42.9) % RDW (13.2-15.2) % Seg Neutrophils # Man (1.8-7.7) K/mm3 PT (12.2-14.9) Sec. INR (0.87-1.13) POC ABG pH 7.285 L 7.460 H (7.35-7.45) POC ABG pCO2 34.2 L (35-45) POC ABG pO2 171 H (80-105) VBG pH (7.320-7.420) Sodium (137-145) mmol/L Potassium (3.6-5.0) mmol/L Chloride (98-107) mmol/L Carbon Dioxide (22-30) mmol/L BUN (7-17) mg/dL Creatinine (0.7-1.2) mg/dL Glucose (65-100) mg/dL POC Glucose 217 H (70-105) Lactic Acid (0.7-2.0) mmol/L AST (5-40) units/L Troponin T (0.00-0.029) ng/mL Total Protein (6.3-8.2) g/dL Albumin (3.9-5) g/dL Triglycerides (2-149) mg/dL LDL Cholesterol Direct (50-130) mg/dL HDL Cholesterol (40-59) mg/dL Crossmatch 08/29/18 Range/Units 06:49 WBC (4.5-11.0) K/mm3 RBC (3.65-5.03) M/mm3 Hgb (10.1-14.3) gm/dl Hct (30.3-42.9) % RDW (13.2-15.2) % Seg Neutrophils # Man (1.8-7.7) K/mm3 PT (12.2-14.9) Sec. INR (0.87-1.13) POC ABG pH (7.35-7.45) POC ABG pCO2 (35-45) POC ABG pO2 (80-105) VBG pH (7.320-7.420) Sodium (137-145) mmol/L Potassium (3.6-5.0) mmol/L Chloride (98-107) mmol/L Carbon Dioxide (22-30) mmol/L BUN (7-17) mg/dL Creatinine (0.7-1.2) mg/dL Glucose (65-100) mg/dL POC Glucose 166 H (70-105) Lactic Acid (0.7-2.0) mmol/L AST (5-40) units/L Troponin T (0.00-0.029) ng/mL Total Protein (6.3-8.2) g/dL Albumin (3.9-5) g/dL Triglycerides (2-149) mg/dL LDL Cholesterol Direct (50-130) mg/dL HDL Cholesterol (40-59) mg/dL Crossmatch - Imaging and Cardiology Chest x-ray: report reviewed, image reviewed (no pneumonia seen) Assessment and Plan Cultures: previous cultures reviewed and grew MRSA, VRE, ESBL producing gram-negative rods. A/P: 58-year-old female with hypertension, ischemic CVA from mitral valve endocarditis in February 2018, respiratory failure status post tracheostomy and PEG tubes, previous MRSA bacteremia, previous right first and second toe osteomyelitis status post amputation, ESRD on dialysis was well-known to the infectious disease service from her multiple previous hospitalizations, admitted with: 1) Septic shock with cardiac arrest: Extremely poor prognosis. I had a long discussion with the patient's daughter in the emergency room. Extremely high mortality risk. For now, continue meropenem and linezolid. Agree with DO NOT RESUSCITATE status, recommend comfort care only since aggressive measures are going to be futile. 2) Large sacral decubitus ulcer: Status post debridement in 07/2018. 3) ESRD: On hemodialysis. Renally dose antibiotics. Recs: Continued renally adjusted meropenem, continue linezolid Extremely high mortality Agree with DO NOT RESUSCITATE status, recommend comfort care only since aggressive measures are going to be futile. I had a long discussion with the patient's daughter in the emergency room who understands and agrees MD [facility] C: [phone] O: [phone] F: [phone]
--- NOTE | 2018-08-29 15:30 | Progress Note ---
Assessment and Plan Assessment and plan: [id number] (x2) and in-hospital (x1) Cardiac arrest -Successfully resuscitated but her prognosis is very poor Septic shock -Probably secondary to PNA (HCAP) -Chest x-ray showed bilateral perihilar opacities Acute on chronic hypoxemic respiratory failure -Status post tracheostomy, currently on mechanical ventilator Acute metabolic encephalopathy -Secondary to the cardiac arrest/sepsis Hyponatremia Hyperkalemia DM2 with hyperglycemia Large sacral decubitus ulcer -Status post debridement in 07/2018. ESRD -On hemodialysis -Nephrology following Metabolic acidosis Acute on chronic anemia History of COPD Severe protein calorie malnutrition Disposition: After several extensive discussions with the patient's daughter who is the next of kin, she agreed to comfort care (no medications, blood transfusion and lab draws. However she is indecisive about the mechanical ventilator. She requested to consult with other family members before making final decision tomorrow. Patient is currently DO NOT RESUSCITATE. History Interval history: Pt is unresponsive. No significant change and no issues reported. Hospitalist Physical - Constitutional Vitals: Temp Pulse Resp BP Pulse Ox 98.6 F 97 H 14 92/48 98 08/29/18 05:00 08/29/18 12:22 08/29/18 12:22 08/29/18 12:22 08/29/18 12:22 General appearance: Present: no acute distress, other (on MV) - EENT Eyes: Present: irregular pupil (sluggish) ENT: clear oral mucosa - Neck Neck: Present: supple, other (status post tracheostomy) - Respiratory Respiratory effort: normal Respiratory: bilateral: diminished - Cardiovascular Rhythm: regular Heart Sounds: Present: S1 & S2 - Extremities Extremities: No edema - Abdominal General gastrointestinal: soft, non-distended, normal bowel sounds - Integumentary Integumentary: Present: erythema (decubitus ulcers) - Neurologic Neurologic: other (pt is unresponsive) Results - Labs CBC & Chem 7: 08/28/18 16:24 08/28/18 16:24 Labs: Laboratory Last Values WBC 15.1 K/mm3 (4.5-11.0) H 08/28/18 16:24 RBC 2.21 M/mm3 (3.65-5.03) L 08/28/18 16:24 Hgb 6.6 gm/dl (10.1-14.3) L 08/28/18 16:24 Hct 21.3 % (30.3-42.9) L 08/28/18 16:24 MCV 96 fl (79-97) 08/28/18 16:24 MCH 30 pg (28-32) 08/28/18 16:24 MCHC 31 % (30-34) 08/28/18 16:24 RDW 17.5 % (13.2-15.2) H 08/28/18 16:24 Plt Count 296 K/mm3 (140-440) 08/28/18 16:24 Add Manual Diff Complete 08/28/18 16:24 Total Counted 100 08/28/18 16:24 Seg Neuts % (Manual) 67.0 % (40.0-70.0) 08/28/18 16:24 Band Neutrophils % 2.0 % 08/28/18 16:24 Lymphocytes % (Manual) 25.0 % (13.4-35.0) 08/28/18 16:24 Reactive Lymphs % (Man) 0 % 08/28/18 16:24 Monocytes % (Manual) 3.0 % (0.0-7.3) 08/28/18 16:24 Eosinophils % (Manual) 1.0 % (0.0-4.3) 08/28/18 16:24 Basophils % (Manual) 0 % (0.0-1.8) 08/28/18 16:24 Metamyelocytes % 1.0 % 08/28/18 16:24 Myelocytes % 1.0 % 08/28/18 16:24 Promyelocytes % 0 % 08/28/18 16:24 Blast Cells % 0 % 08/28/18 16:24 Nucleated RBC % Not Reportable 08/28/18 16:24 Seg Neutrophils # Man 10.1 K/mm3 (1.8-7.7) H 08/28/18 16:24 Band Neutrophils # 0.3 K/mm3 08/28/18 16:24 Lymphocytes # (Manual) 3.8 K/mm3 (1.2-5.4) 08/28/18 16:24 Abs React Lymphs (Man) 0.0 K/mm3 08/28/18 16:24 Monocytes # (Manual) 0.5 K/mm3 (0.0-0.8) 08/28/18 16:24 Eosinophils # (Manual) 0.2 K/mm3 (0.0-0.4) 08/28/18 16:24 Basophils # (Manual) 0.0 K/mm3 (0.0-0.1) 08/28/18 16:24 Metamyelocytes # 0.2 K/mm3 08/28/18 16:24 Myelocytes # 0.2 K/mm3 08/28/18 16:24 Promyelocytes # 0.0 K/mm3 08/28/18 16:24 Blast Cells # 0.0 K/mm3 08/28/18 16:24 WBC Morphology Not Reportable 08/28/18 16:24 Hypersegmented Neuts Not Reportable 08/28/18 16:24 Hyposegmented Neuts Not Reportable 08/28/18 16:24 Hypogranular Neuts Not Reportable 08/28/18 16:24 Smudge Cells Not Reportable 08/28/18 16:24 Toxic Granulation Not Reportable 08/28/18 16:24 Toxic Vacuolation Not Reportable 08/28/18 16:24 Dohle Bodies Not Reportable 08/28/18 16:24 Pelger-Huet Anomaly Not Reportable 08/28/18 16:24 Evelina Rods Not Reportable 08/28/18 16:24 Platelet Estimate Consistent w auto 08/28/18 16:24 Clumped Platelets Not Reportable 08/28/18 16:24 Plt Clumps, EDTA Not Reportable 08/28/18 16:24 Large Platelets Not Reportable 08/28/18 16:24 Giant Platelets Not Reportable 08/28/18 16:24 Platelet Satelliting Not Reportable 08/28/18 16:24 Plt Morphology Comment Not Reportable 08/28/18 16:24 RBC Morphology Not Reportable 08/28/18 16:24 Dimorphic RBCs Not Reportable 08/28/18 16:24 Polychromasia Not Reportable 08/28/18 16:24 Hypochromasia 1+ 08/28/18 16:24 Poikilocytosis Few 08/28/18 16:24 Anisocytosis 1+ 08/28/18 16:24 Microcytosis 1+ 08/28/18 16:24 Macrocytosis Not Reportable 08/28/18 16:24 Spherocytes Not Reportable 08/28/18 16:24 Pappenheimer Bodies Not Reportable 08/28/18 16:24 Sickle Cells Not Reportable 08/28/18 16:24 Target Cells Not Reportable 08/28/18 16:24 Tear Drop Cells Not Reportable 08/28/18 16:24 Ovalocytes Few 08/28/18 16:24 Helmet Cells Not Reportable 08/28/18 16:24 [place] Bodies Not Reportable 08/28/18 16:24 [place] Rings Not Reportable 08/28/18 16:24 [place] Cells Not Reportable 08/28/18 16:24 Bite Cells Not Reportable 08/28/18 16:24 Crenated Cell Not Reportable 08/28/18 16:24 Elliptocytes Not Reportable 08/28/18 16:24 Acanthocytes (Spur) Not Reportable 08/28/18 16:24 Rouleaux Not Reportable 08/28/18 16:24 Hemoglobin C Crystals Not Reportable 08/28/18 16:24 Schistocytes Not Reportable 08/28/18 16:24 Malaria parasites Not Reportable 08/28/18 16:24 [place] Bodies Not Reportable 08/28/18 16:24 Hem Pathologist Commnt No 08/28/18 16:24 PT 15.7 Sec. (12.2-14.9) H 08/28/18 16:24 INR 1.17 (0.87-1.13) H 08/28/18 16:24 APTT 33.7 Sec. (24.2-36.6) 08/28/18 16:24 POC ABG pH 7.460 (7.35-7.45) H 08/29/18 04:46 POC ABG pCO2 34.2 (35-45) L 08/29/18 04:46 POC ABG pO2 171 (80-105) H 08/29/18 04:46 POC ABG HCO3 24.3 (22-26 mml/L) 08/29/18 04:46 POC ABG Total CO2 25 (23-27mmol/L) 08/29/18 04:46 POC ABG O2 Sat 100 08/29/18 04:46 POC ABG Base Excess 0 ((-2) - (+3)mmol/L) 08/29/18 04:46 VBG pH 6.930 (7.320-7.420) L* 08/28/18 16:24 FiO2 40 % 08/29/18 04:46 Sodium 128 mmol/L (137-145) L 08/28/18 16:24 Potassium 5.7 mmol/L (3.6-5.0) H 08/28/18 16:24 Chloride 90.5 mmol/L (98-107) L 08/28/18 16:24 Carbon Dioxide 18 mmol/L (22-30) L 08/28/18 16:24 Anion Gap 25 mmol/L 08/28/18 16:24 BUN 30 mg/dL (7-17) H 08/28/18 16:24 Creatinine 5.3 mg/dL (0.7-1.2) H 08/28/18 16:24 Estimated GFR 10 ml/min 08/28/18 16:24 BUN/Creatinine Ratio 6 % 08/28/18 16:24 Glucose 259 mg/dL (65-100) H 08/28/18 16:24 POC Glucose 166 (70-105) H 08/29/18 06:49 Lactic Acid 11.20 mmol/L (0.7-2.0) H* 08/28/18 16:24 Calcium 8.8 mg/dL (8.4-10.2) 08/28/18 16:24 Total Bilirubin 0.20 mg/dL (0.1-1.2) 08/28/18 16:24 AST 128 units/L (5-40) H 08/28/18 16:24 ALT 33 units/L (7-56) 08/28/18 16:24 Alkaline Phosphatase 108 units/L (35-129) 08/28/18 16:24 Troponin T 0.629 ng/mL (0.00-0.029) H* 08/28/18 16:24 Total Protein 5.9 g/dL (6.3-8.2) L 08/28/18 16:24 Albumin 2.1 g/dL (3.9-5) L 08/28/18 16:24 Albumin/Globulin Ratio 0.6 % 08/28/18 16:24 Triglycerides 155 mg/dL (2-149) H 08/28/18 16:24 Cholesterol 94 mg/dL (50-199) 08/28/18 16:24 LDL Cholesterol Direct 43 mg/dL (50-130) L 08/28/18 16:24 HDL Cholesterol 32 mg/dL (40-59) L 08/28/18 16:24 Cholesterol/HDL Ratio 2.93 % 08/28/18 16:24 Blood Type O POSITIVE 08/28/18 17:32 Antibody Screen Negative 08/28/18 17:32 Crossmatch See Detail 08/28/18 17:32 Active Medications - Current Medications Current Medications: Generic Name Dose Route Start Last Admin Trade Name Freq PRN Reason Stop Dose Admin Acetaminophen 650 mg 08/29/18 05:47 Tylenol PO Q4H PRN Pain MILD(1-3)/Fever >100.5/CASAREZ Albuterol 2.5 mg 08/29/18 06:12 Proventil IH Q4HR PRN Shortness Of Breath Albuterol/Ipratropium 1 ampul 08/29/18 08:00 08/29/18 08:57 Duoneb *Not For Prn Use* IH 1 ampul TIDRT [facility] Administration Amiodarone HCl 200 mg 08/28/18 21:00 08/28/18 21:18 Cordarone PO Not Given DAILY [facility] Famotidine 20 mg 08/28/18 21:00 08/28/18 21:18 Pepcid PO Not Given DAILY [facility] Epinephrine 8 mg/ Sodium 250 mls @ 3.75 mls/hr 08/28/18 16:56 08/28/18 17:27 Chloride IV 08/31/18 11:35 2 mcg/min TITR ONE 3.75 mls/hr Administration Protocol 2 MCG/MIN Meropenem 500 mg in 50 mls @ 50 mls/hr 08/28/18 21:00 08/28/18 21:18 Merrem/Ns 500 Mg/50 Ml IV Not Given Q24H [facility] Insulin Human Lispro 0 unit 08/29/18 06:00 08/29/18 06:47 Humalog SUB-Q Not Given Q6HR [facility] Protocol Linezolid 600 mg 08/29/18 12:00 Zyvox PO Q12HR [facility] Protocol Midodrine 10 mg 08/29/18 08:00 Proamatine PO BID@0800,1700 [facility] Miscellaneous Medication 30 mg 08/29/18 22:00 Gabapentin [Gralise] PO QHS [facility] Quetiapine Fumarate 25 mg 08/29/18 08:00 Seroquel PO BID@0800,1700 [facility] Quetiapine Fumarate 50 mg 08/28/18 22:00 08/28/18 22:51 Seroquel PO Not Given QHS [facility] Sevelamer Carbonate 800 mg 08/29/18 08:00 Renvela PO TIDWM [facility] Simple Syrup 30 ml 08/28/18 20:08 Simple Syrup FEEDTUBE PRN PRN Hypoglycemia Sodium Bicarbonate 325 mg 08/28/18 20:08 Sodium Bicarbonate FEEDTUBE PRN PRN For Clogged Feeding Tube Zinc Sulfate 220 mg 08/29/18 10:00 Zinc Sulfate PO DAILY [facility]
--- NOTE | 2018-08-29 15:37 | Consultation ---
History of Present Illness Consult date: 08/29/18 Requesting physician: MARLEY BAEZ Reason for consult: other (Acute respiratory failure) History of present illness: 58 yo presented in cardiac arrest. She was successfuly resuscitated and remains on an Epinephrine drip. She has a chronic trach/peg. She is back on the ventilator now. She is nonverbal and cannot supply history. Active Medications Acetaminophen (Tylenol) 650 mg PO Q4H PRN PRN Reason: Pain MILD(1-3)/Fever >100.5/CASAREZ Albuterol (Proventil) 2.5 mg IH Q4HR PRN PRN Reason: Shortness Of Breath Albuterol/Ipratropium (Duoneb *Not For Prn Use*) 1 ampul IH TIDRT [facility] Last Admin: 08/29/18 08:57 Dose: 1 ampul Documented by: Amiodarone HCl (Cordarone) 200 mg PO DAILY [facility] Last Admin: 08/28/18 21:18 Dose: Not Given Documented by: Famotidine (Pepcid) 20 mg PO DAILY [facility] Last Admin: 08/28/18 21:18 Dose: Not Given Documented by: Epinephrine 8 mg/ Sodium (Chloride) 250 mls @ 3.75 mls/hr IV TITR ONE; Protocol Stop: 08/31/18 11:35 Last Admin: 08/28/18 17:27 Dose: 2 mcg/min, 3.75 mls/hr Documented by: Meropenem (Merrem/Ns 500 Mg/50 Ml) 500 mg in 50 mls @ 50 mls/hr IV Q24H [facility] Last Admin: 08/28/18 21:18 Dose: Not Given Documented by: Insulin Human Lispro (Humalog) 0 unit SUB-Q Q6HR [facility]; Protocol Last Admin: 08/29/18 06:47 Dose: Not Given Documented by: Linezolid (Zyvox) 600 mg PO Q12HR [facility]; Protocol Midodrine (Proamatine) 10 mg PO BID@0800,1700 [facility] Miscellaneous Medication (Gabapentin [Gralise]) 30 mg PO QHS [facility] Quetiapine Fumarate (Seroquel) 25 mg PO BID@0800,1700 [facility] Quetiapine Fumarate (Seroquel) 50 mg PO QHS [facility] Last Admin: 08/28/18 22:51 Dose: Not Given Documented by: Sevelamer Carbonate (Renvela) 800 mg PO TIDWM [facility] Simple Syrup (Simple Syrup) 30 ml FEEDTUBE PRN PRN PRN Reason: Hypoglycemia Sodium Bicarbonate (Sodium Bicarbonate) 325 mg FEEDTUBE PRN PRN PRN Reason: For Clogged Feeding Tube Zinc Sulfate (Zinc Sulfate) 220 mg PO DAILY [facility] Past History Past Medical History: other (Atrial fibrillation, osteomyelitis, left eye blurriness, anemia, hyperlipidemia, HTN, ESRD, Hx of Endocarditis per chart) Social history: AND/DNR-allow natural . denies: smoking, alcohol abuse, prescription drug abuse, IV drug use Family history: other (No pulm issues reported) Medications and Allergies Allergies Allergy/AdvReac Type Severity Reaction Status Date / Time ondansetron Allergy Anaphylaxis Verified 08/01/18 11:00 sulfamethoxazole Allergy Anaphylaxis Verified 08/01/18 11:00 [From Bactrim] trimethoprim [From Bactrim] Allergy Anaphylaxis Verified 08/01/18 11:00 vancomycin Allergy Anaphylaxis Verified 08/01/18 11:00 Home Medications Medication Instructions Recorded Confirmed Last Taken Type Carvedilol [Coreg] 12.5 mg FEEDTUBE BID 08/01/18 08/29/18 08/19/18 History Famotidine 20 mg FEEDTUBE DAILY 08/01/18 08/29/18 08/19/18 History Loperamide [Imodium] 2 mg FEEDTUBE Q6H 08/01/18 08/29/18 08/19/18 History Sevelamer Carbonate [Renvela] 800 mg FEEDTUBE TIDWM 08/01/18 08/29/18 08/19/18 History Meropenem/Ns 500 mg/50 ml 500 mg IV Q24H #17 bag 08/18/18 08/29/18 08/19/18 Rx [Merrem/Ns 500 mg/50 ml] Metoprolol [Lopressor TAB] 25 mg PO BID tablet 08/18/18 08/29/18 08/19/18 Rx ALBUTEROL NEB's [Proventil] 2.5 mg IH Q4H PRN 08/29/18 08/29/18 Unknown History Acetaminophen [Tylenol] 650 mg FEEDTUBE Q6HR PRN 08/29/18 08/29/18 Unknown History Amiodarone [Cordarone 200 MG TAB] 200 mg FEEDTUBE DAILY 08/29/18 08/29/18 Unknown History Amlodipine Besylate [Norvasc] 5 mg FEEDTUBE DAILY 08/29/18 08/29/18 Unknown History Aspirin [Aspirin BABY CHEW TAB] 81 mg FEEDTUBE QDAY 08/29/18 08/29/18 Unknown History Gabapentin [Neurontin] 6 ml FEEDTUBE HS 08/29/18 08/29/18 Unknown History Insulin Lispro [HumaLOG VIAL] See Protocol SUB-Q AC 08/29/18 08/29/18 Unknown History Linezolid [Zyvox] 600 mg FEEDTUBE BID 08/29/18 08/29/18 Unknown History Midodrine HCl 10 mg FEEDTUBE BID 08/29/18 08/29/18 Unknown History Oxychlorosene [Clorpactin] 2 gm TP DAILY 08/29/18 08/29/18 Unknown History QUEtiapine [SEROquel] 25 mg FEEDTUBE BID 08/29/18 08/29/18 Unknown History oxyCODONE /ACETAMINOPHEN [Percocet 1 tab FEEDTUBE Q6HR PRN 08/29/18 08/29/18 Unknown History 5/325] Active Meds: Active Medications Acetaminophen (Tylenol) 650 mg PO Q4H PRN PRN Reason: Pain MILD(1-3)/Fever >100.5/CASAREZ Albuterol (Proventil) 2.5 mg IH Q4HR PRN PRN Reason: Shortness Of Breath Albuterol/Ipratropium (Duoneb *Not For Prn Use*) 1 ampul IH TIDRT [facility] Last Admin: 08/29/18 08:57 Dose: 1 ampul Documented by: Amiodarone HCl (Cordarone) 200 mg PO DAILY [facility] Last Admin: 08/28/18 21:18 Dose: Not Given Documented by: Famotidine (Pepcid) 20 mg PO DAILY [facility] Last Admin: 08/28/18 21:18 Dose: Not Given Documented by: Epinephrine 8 mg/ Sodium (Chloride) 250 mls @ 3.75 mls/hr IV TITR ONE; Protocol Stop: 08/31/18 11:35 Last Admin: 08/28/18 17:27 Dose: 2 mcg/min, 3.75 mls/hr Documented by: Meropenem (Merrem/Ns 500 Mg/50 Ml) 500 mg in 50 mls @ 50 mls/hr IV Q24H [facility] Last Admin: 08/28/18 21:18 Dose: Not Given Documented by: Insulin Human Lispro (Humalog) 0 unit SUB-Q Q6HR [facility]; Protocol Last Admin: 08/29/18 06:47 Dose: Not Given Documented by: Linezolid (Zyvox) 600 mg PO Q12HR [facility]; Protocol Midodrine (Proamatine) 10 mg PO BID@0800,1700 [facility] Miscellaneous Medication (Gabapentin [Gralise]) 30 mg PO QHS [facility] Quetiapine Fumarate (Seroquel) 25 mg PO BID@0800,1700 [facility] Quetiapine Fumarate (Seroquel) 50 mg PO QHS [facility] Last Admin: 08/28/18 22:51 Dose: Not Given Documented by: Sevelamer Carbonate (Renvela) 800 mg PO TIDWM [facility] Simple Syrup (Simple Syrup) 30 ml FEEDTUBE PRN PRN PRN Reason: Hypoglycemia Sodium Bicarbonate (Sodium Bicarbonate) 325 mg FEEDTUBE PRN PRN PRN Reason: For Clogged Feeding Tube Zinc Sulfate (Zinc Sulfate) 220 mg PO DAILY [facility] Review of Systems All systems: negative Physical Examination Vital signs: Vital Signs Pulse Resp BP Pulse Ox 60 20 46/25 100 08/28/18 16:07 08/28/18 16:07 08/28/18 16:07 08/28/18 16:07 General appearance: other (critically ill on ventilator) Eyes: non-icteric ENT: oropharynx moist Neck: supple Effort: normal Ascultation: Bilateral: other (coarse BS bilaterally) Cardiovascular: regular rate and rhythm (no mrg) Gastrointestinal: normoactive bowel sounds, soft, non-tender, non-distended Extremities: no cyanosis, no edema, pink and warm Musculoskeletal: no deformities other (eyes open but not following commands, flaccid extremities, I cannot elicit pupillary reflex, corneal reflex, or gag reflex) other (unable to assess) Results - Laboratory Findings CBC and BMP: 08/28/18 16:24 08/28/18 16:24 ABG POC ABG pH 7.460 (7.35-7.45) H 08/29/18 04:46 POC ABG pCO2 34.2 (35-45) L 08/29/18 04:46 POC ABG pO2 171 (80-105) H 08/29/18 04:46 POC ABG HCO3 24.3 (22-26 mml/L) 08/29/18 04:46 POC ABG Total CO2 25 (23-27mmol/L) 08/29/18 04:46 POC ABG O2 Sat 100 08/29/18 04:46 PT/INR, D-dimer PT 15.7 Sec. (12.2-14.9) H 08/28/18 16:24 INR 1.17 (0.87-1.13) H 08/28/18 16:24 Abnormal lab findings: Abnormal Labs 08/28/18 08/28/18 08/28/18 16:24 16:24 16:24 WBC 15.1 H RBC 2.21 L Hgb 6.6 L Hct 21.3 L RDW 17.5 H Seg Neutrophils # Man 10.1 H PT 15.7 H INR 1.17 H POC ABG pH POC ABG pCO2 POC ABG pO2 VBG pH Sodium 128 L Potassium 5.7 H Chloride 90.5 L Carbon Dioxide 18 L BUN 30 H Creatinine 5.3 H Glucose 259 H POC Glucose Lactic Acid AST 128 H Troponin T 0.629 H* Total Protein 5.9 L Albumin 2.1 L Triglycerides 155 H LDL Cholesterol Direct 43 L HDL Cholesterol 32 L Crossmatch 08/28/18 08/28/18 08/28/18 16:24 16:24 17:32 WBC RBC Hgb Hct RDW Seg Neutrophils # Man PT INR POC ABG pH POC ABG pCO2 POC ABG pO2 VBG pH 6.930 L* Sodium Potassium Chloride Carbon Dioxide BUN Creatinine Glucose POC Glucose Lactic Acid 11.20 H* AST Troponin T Total Protein Albumin Triglycerides LDL Cholesterol Direct HDL Cholesterol Crossmatch See Detail 08/28/18 08/29/18 08/29/18 17:53 02:16 04:46 WBC RBC Hgb Hct RDW Seg Neutrophils # Man PT INR POC ABG pH 7.285 L 7.460 H POC ABG pCO2 34.2 L POC ABG pO2 171 H VBG pH Sodium Potassium Chloride Carbon Dioxide BUN Creatinine Glucose POC Glucose 217 H Lactic Acid AST Troponin T Total Protein Albumin Triglycerides LDL Cholesterol Direct HDL Cholesterol Crossmatch 08/29/18 06:49 WBC RBC Hgb Hct RDW Seg Neutrophils # Man PT INR POC ABG pH POC ABG pCO2 POC ABG pO2 VBG pH Sodium Potassium Chloride Carbon Dioxide BUN Creatinine Glucose POC Glucose 166 H Lactic Acid AST Troponin T Total Protein Albumin Triglycerides LDL Cholesterol Direct HDL Cholesterol Crossmatch - Diagnostic Findings Chest x-ray: report reviewed, image reviewed (mild perihilar edema) Assessment and Plan Imp: 1. S/p CP arrest 2. Sepsis 3. Acute/chronic respiratory failure, hypoxia 4. ESRD 5. Normocytic anemia 6. Lactic acidosis 7. Hyperkalemia Rec: 1. No sedation 2. Try to wean off Epi drip to keep MAP > 65 3. Obtain blood cultures; ABX per ID 4. Leave on ventilator today 5. Check LE dopplers 6. Pepcid, SCDs 7. Repeat K and lactic acid in AM; needs renal evaluation 8. Patient is AND; prognosis is very poor CCT 31 minutes Plan of care reviewed with family at bedside, they understand/agree
[2018-08-29] MEDS: RENVELA PO SCH ×2 (19:36→19:37)
[2018-08-29] MEDS: PROAMATINE PO SCH (19:36)
[2018-08-29] MEDS: CORDARONE PO SCH (19:38)
[2018-08-29] MEDS: PEPCID PO SCH (19:38)
[2018-08-29] MEDS: MERREM/NS 500 MG/50 ML 500 MG/50 ML BAG IV SCH (21:36)
[2018-08-29] MEDS ORDERED: GABAPENTIN PO SCH (22:00)
[2018-08-30 00:35] VITALS: BP 52/28
--- NOTE | 2018-08-30 08:08 | Event Note ---
Date: 08/29/18 I WAS CALLED BY NURSE ATTENDING TO PATIENT TO EVALUATE A PATIENT SUSPECTED TO HAVE . ON EXAM; PATIENT WAS LYING LIFELESS ON HER BED HOOKED UP TO THE MORNITOR IN THE EMERGENCY ROOM WITH FLAT LINES IN AT LEAST 2 LEADS PUPILS WERE FIXED AND DILATED. AUSCULTATION OF THE LUNGS SHOW NO AIR MOVEMENT AUSCULTATION OF THE HEART SHOW NO IMPULSES. PATIENT WAS PRONOUNCED AT 9:45 PM AND MANY FAMILY MEMBERS INCLUDING PRESENT AND NOTIFIED.
--- NOTE | 2018-09-08 14:27 | Discharge Summary ---
Date of admission: 08/28/2018 Date of discharge: 08/29/2018 ATTENDING PHYSICIAN: MARLEY BAEZ ADMITTING DIAGNOSES: 1. Cardiac arrest, status post resuscitation. 2. Septic shock, probably secondary to healthcare-associated pneumonia. 3. Acute on chronic hypoxemic respiratory failure. 4. Acute metabolic encephalopathy. 5. Hyponatremia. 6. Hyperkalemia. 7. Diabetes mellitus type 2 with hyperglycemia. 8. Metabolic acidosis. 9. Acute on chronic anemia. FINAL DIAGNOSES: 1. Cardiac arrest, status post resuscitation. 2. Septic shock, probably secondary to healthcare-associated pneumonia. 3. Acute on chronic hypoxemic respiratory failure. 4. Acute metabolic encephalopathy secondary to the cardiac arrest versus sepsis. 5. Hyponatremia. 6. Hyperkalemia. 7. Diabetes mellitus type 2 with hyperglycemia. 8. Metabolic acidosis. 9. Acute on chronic anemia. SECONDARY DISCHARGE DIAGNOSES: 1. Severe protein-calorie malnutrition, on tube feeding. 2. Chronic obstructive pulmonary disease. 3. End-stage renal disease, on hemodialysis. 4. Status post tracheostomy. 5. Large sacral decubital ulcer, status post recent debridement. CONSULTATIONS: 1. Pulmonology. 2. Nephrology. 3. Infectious Disease. PROCEDURE: None. IMAGING DATA: Chest x-ray, bilateral perihilar opacities. REASON FOR ADMISSION: Please see the H and P note. HOSPITAL COURSE: The patient had out of hospital cardiac arrest x 2 and was successfully resuscitated. While in the ED, she had another cardiac arrest x1 and was also successfully resuscitated and placed on the mechanical ventilator via her tracheostomy. In addition, she was placed on IV pressor as well as IV antibiotic. She was also transfused with 1 unit of packed red blood cells for low hemoglobin level. Subsequently, extensive discussion was held with the patient's next of kin, the daughter, who eventually made a decision to place the mother on DNR only. Eventually, She also made a decision to end all medical treatment. Thereafter, the patient was extubated, and she was later pronounced on 08/29/2018 at 9:45 p.m. CONDITION ON DISCHARGE: Please see the note DISPOSITION: The patient was transferred to the [facility] [place]. Time spent is 30 minutes. JOB# [id number] AEE/ANNE MARIE CHRISTINAD
== END 2018-08-29 21:45 | DRG 871 ==
LOC: ED 15:55 → CC1 18:09 → UNDODISIN 08-30 00:05 → CC1 08-30 00:05
PROVIDERS: ADMIT Internal Medicine; ATTEND Hospitalist
PROC: 5A1945Z Respiratory Ventilation, 24-96 Consecutive Hours (ICD-10-PCS; principal; 2018-08-28)
PROC: 30233N1 Transfusion of Nonautologous Red Blood Cells into Peripheral Vein, Percutaneous Approach (ICD-10-PCS; 2018-08-28)
PROC: 4A033R1 Measurement of Arterial Saturation, Peripheral, Percutaneous Approach (ICD-10-PCS; 2018-08-28)
PROC: 5A12012 Performance of Cardiac Output, Single, Manual (ICD-10-PCS; 2018-08-28)
DX: A41.9 Sepsis, unspecified organism (principal); N18.6 End stage renal disease; L89.154 Pressure ulcer of sacral region, stage 4; R65.21 Severe sepsis with septic shock; J96.21 Acute and chronic respiratory failure with hypoxia; G93.41 Metabolic encephalopathy; E43 Unspecified severe protein-calorie malnutrition; I13.2 Hypertensive heart and chronic kidney disease with heart failure and with stage 5 chronic kidney disease, or end stage renal disease; E87.1 Hypo-osmolality and hyponatremia; Z68.1 Body mass index [BMI] 19.9 or less, adult; I46.9 Cardiac arrest, cause unspecified; D64.9 Anemia, unspecified; E87.5 Hyperkalemia; E11.22 Type 2 diabetes mellitus with diabetic chronic kidney disease; I50.9 Heart failure, unspecified; K21.9 Gastro-esophageal reflux disease without esophagitis; J44.9 Chronic obstructive pulmonary disease, unspecified; E11.65 Type 2 diabetes mellitus with hyperglycemia; Z66 Do not resuscitate; I48.91 Unspecified atrial fibrillation; Z79.4 Long term (current) use of insulin; Z93.1 Gastrostomy status; Z86.73 Personal history of transient ischemic attack (TIA), and cerebral infarction without residual deficits; Z95.0 Presence of cardiac pacemaker; Z95.1 Presence of aortocoronary bypass graft; Z89.422 Acquired absence of other left toe(s); Z93.0 Tracheostomy status; Z98.49 Cataract extraction status, unspecified eye; Z88.2 Allergy status to sulfonamides; Z88.1 Allergy status to other antibiotic agents; Z79.899 Other long term (current) drug therapy
CPT/HCPCS: 36415; 36430; 36600; 71045; 80053; 80061; 82140; 82803; 82805; 82962; 84484; 85007; 85025; 85610; 85730; 86850; 86900; 86901; 86920; 93005; 93010; 94002; 94003; 94640; 94644; G0378; J0171; J0282; J1815; J2185; J7030; J7040; J7050; J7060; P9016